=== PATIENT | male | born 1950 | race Caucasian/White ===

== ENCOUNTER 2019-09-19 08:03 | Outpatient (CLI) | payer MEDICARE, MEDICAID, SELFPAY ==
[2019-09-19 12:53] LABS: Hemoglobin A1C 7.8 % (<5.7)
[2019-09-19 12:58] LABS: Cholesterol 154 mg/dL (0-200); HDL Direct 47 mg/dL; Triglycerides 272 mg/dL (<150)
[2019-09-19 13:09] LABS: LDL Cholesterol Direct 77 mg/dL
== END 2019-09-19 08:04 | disposition home or self-care (01) ==
PROVIDERS: PCP Family Medicine; Visit Provider Internal Medicine Hematology & Oncology
DX: C82.80 Other types of follicular lymphoma, unspecified site (principal); E11.9 Type 2 diabetes mellitus without complications; I25.10 Atherosclerotic heart disease of native coronary artery without angina pectoris
CPT/HCPCS: 36415; 80061; 83036

== ENCOUNTER 2019-10-03 07:31 | Outpatient (RCR) | payer MEDICARE, MEDICAID, SELFPAY ==
[2019-09-02 11:04] VITALS: BMI 57.0
--- NOTE | 2019-09-02 11:10 | P.PNWOUND_ITS ---
Wound Care Note Date/Time: 09/02/19 11 :10 patient seen in the wound clinic with LYDIA Carpio. Bradford drain was removed at previous visit. They have been treating the wounds and the tract with silver gel and Mepilex in the tract. He is seen now in follow-up. Exam- both counter incisions are fairly large but clean and appeared to be healing. No significant drainage from the tract and no evidence of purulent fluid. Assessment and Plan Assessment and plan (1) Left buttock abscess: Code(s): L02.31 - Cutaneous abscess of buttock Status: Chronic Assessment and Plan: Abscess has resolved but now has a chronic wound that is slow to heal due to the patient's obesity and chronic illnesses as well as its location on his buttocks. He does spend most of his time sitting. I think the wound tract is clean and will heal without dressings. He can just put silver gel on both of the openings for the counter incisions and dressed that with gauze daily. He will be recheck in approximately 2 weeks. (2) Morbid obesity with BMI of 60.0-69.9, adult: Code(s): E66.01 - Morbid (severe) obesity due to excess calories; Z68.44 - Body mass index (BMI) 60.0-69.9, adult Status: Chronic (3) Antiplatelet or antithrombotic long-term use: Code(s): Z79.02 - superintendent container terminal (current) use of antithrombotics/antiplatelets Status: Chronic
--- NOTE | 2019-09-02 11:14 | WPDWOUNDNOTE ---
Wound Care Note Date/Time: 09/02/19 11:14 Wound approximation: No Wound width: Superior opening: Inferior opening: Wound length: Superior opening: Inferior opening: Wound depth: Superior openin.5 cm Inferior openin.5 cm Drainage: No purulent drainage Surrounding tissue appearance: No surrounding signs of infection. Induration resolved. Tunneling: Connection between the two openings, otherwise no tunneling. Percentage granulation tissue: 100% Treatment/Procedures: Wound assessment and dressing change. Dressings: Stop packing the wound. Change to daily application of silver get to open wounds and cover with gauze and tape. Wash wounds with soap and water daily prior to dressing changes.
--- NOTE | 2019-09-22 17:25 | WPDWOUNDNOTE ---
Wound Care Note Date/Time: 09/22/19 17:25 No new complaints or problems. Has continued to use silver gel. Assessment and Plan Assessment and plan (1) Left buttock abscess: Code(s): L02.31 - Cutaneous abscess of buttock Status: Chronic Assessment and Plan: Healing slowly. No sign of recurrent abscess. Continue silver gel dressing changes. Follow up in wound clinic in 3-4 weeks. (2) Morbid obesity with BMI of 60.0-69.9, adult: Code(s): E66.01 - Morbid (severe) obesity due to excess calories; Z68.44 - Body mass index (BMI) 60.0-69.9, adult Status: Chronic Review of Systems Review of Systems: All systems reviewed & are unremarkable except as noted in HPI and below ( HPI) Constitutional: Constitutional: Denies chills and Denies fever(s) Exam GI: Rectal Exam: other ( left buttocks wounds from previous abscess are clean and granulating. ) Other: Still a tract between the 2 openings but it is smaller.
--- NOTE | 2019-10-03 07:45 | P.PNWOUND_ITS ---
Wound Care Note Date/Time: 10/03/19 07:45 Morbidly obese man on a anti-platelet therapy developed left buttock abscess that extended towards the scrotum. . This was drained in surgery with a [place] drain as a seat on. The drain was removed after 3 weeks. Patient continues to have open wounds and wound tract. He has been using silver gel dressings. His last visit was 11 days ago. Both wounds were still present but smaller and the tract was smaller with only a narrow connection between the 2 openings. No evidence of purulence or underlying abscess. Assessment and Plan Assessment and plan (1) Left buttock abscess: Code(s): L02.31 - Cutaneous abscess of buttock Status: Chronic Assessment and Plan: Nearly healed. Continue silver gel and ABDs daily. Recheck in 3 weeks. Should be healed by then. (2) Morbid obesity with BMI of 60.0-69.9, adult: Code(s): E66.01 - Morbid (severe) obesity due to excess calories; Z68.44 - Body mass index (BMI) 60.0-69.9, adult Status: Chronic (3) Antiplatelet or antithrombotic long-term use: Code(s): Z79.02 - group home (current) use of antithrombotics/antiplatelets Status: Chronic Review of Systems Constitutional: Constitutional: Denies chills and Denies fever(s) Exam GI: Rectal Exam: buttock abscess ( tract closed, small openings remain, nearly healed.)
--- NOTE | 2019-10-24 07:17 | PCWOUND ---
Per patients , the wound to the right buttock is closed. Appointment cancelled, instructed to contact office for any questions or concerns. Will contact Dr. Carter's office with update.
--- NOTE | 2019-10-24 07:59 | PCWOUND ---
WOCN NOTE Patient called to cancel appointment for today, reports he is healed.
== END 2019-11-21 07:43 | disposition home or self-care (01) ==
LOC: ANHWOC 07:31
PROVIDERS: PCP Family Medicine; Visit Provider Surgery
DX: L98.419 Non-pressure chronic ulcer of buttock with unspecified severity (principal)
CPT/HCPCS: 99212; G0463

== ENCOUNTER 2019-12-09 19:25 | Inpatient (IN) | payer MEDICARE, MEDICAID, SELFPAY ==
--- NOTE | ~2019-12-09 | XR_ITS ---
XR chest 2V 12/09/2019 20:11 Indication: Chest pain. Low oxygen saturation. Procedure: AP and lateral views of the chest Comparison: Comparison to multiple prior studies sequentially, with oldest reviewed study dated 03/2019. Findings: Heart size normal. Port catheter tip in the SVC. There is bibasilar atelectasis. No focal p neumonia, edema, pleural effusion or pneumothorax. Impression: 1: Bibasilar atelectasis. Reviewed, dictated and finalized at location A. Impression: 1: Bibasilar atelectasis.
[2019-12-09 19:23] VITALS: BP 110/62; PULSE 117; RESP 26; TEMP 37.7; O2SAT 90
--- NOTE | 2019-12-09 19:32 | ECG_ITS ---
Measurements Intervals [place] Rate: 117 P: 37 IA: 140 QRS: -15 QRSD: 89 T: 72 QT: 311 QTc: 434 Interpretive Statements SINUS TACHYCARDIA BORDERLINE R WAVE PROGRESSION, ANTERIOR LEADS BORDERLINE ST-T WAVE ABNORMALITY- LATERAL LEADS ABNORMAL ECG Electronically Signed On 12-10-2019 7:14:08 CDT by Hema Emery D.O.
--- NOTE | 2019-12-09 19:37 | ED.CHESTPAIN ---
HPI - Chest Pain General Chief Complaint: Chest Pain Stated Complaint: cp Time Seen by Provider: 12/09/19 19:36 Source: patient and old records reviewed Mode of arrival: EMS Limitations: no limitations History of Present Illness HPI narrative: Patient is a 69-year-old male who presents to the emergency department with complaint of chest pain. Patient states he has had symptoms of intermittent chills and low-grade fever since yesterday afternoon. Patient reports having some nausea and vomiting and diarrhea last night. Patient complains of myalgias and a non-productive cough. Patient reports an episode of chest pain this evening along the left chest. Patient took sublingual nitroglycerin x1 at home and reports resolution of his chest pain. Patient has prior history of coronary disease. Patient describes the pain as aching with radiation into his arms. He is currently pain-free. MD complaint: chest pain Timing of current episode: now resolved Onset: during rest Pain location: left chest Pain radiation: right arm and left arm Quality: aching Relieving factors: nitroglycerin Exacerbating factors: nothing Context: recent illness (Patient with multiple illness symptoms) Associated symptoms: nausea, vomiting, fever and cough Treatment prior to arrival: aspirin and nitroglycerin Related Data Home Medications Medication Instructions Recorded Confirmed aspirin 81 mg PO DAILY 05/31/19 12/10/19 isosorbide mononitrate 30 mg PO DAILY 05/31/19 12/10/19 liraglutide 1.8 mg SUBCUT DAILY 05/31/19 12/10/19 metoprolol succinate 50 mg PO BID 05/31/19 12/10/19 nitroglycerin 0.4 mg SUBLINGUAL Q5MIN PRN 05/31/19 12/10/19 prasugrel 10 mg PO DAILY 05/31/19 12/10/19 insulin lispro [Humalog KwikPen 8 unit SUBCUT BID 07/07/19 12/10/19 Insulin] omega 6-kwm-bjc-fish oil [Fish Oil] 1 cap PO BID 07/07/19 12/10/19 insulin glargine 100 unit/mL (3 60 unit SUB-Q DAILY ml 10/03/19 12/10/19 mL) subcutaneous pen sitagliptin 50 mg-metformin ER 1 tablet PO BID tablet 10/03/19 12/10/19 1,000 mg tablet,extended release 24h mp baclofen 20 mg PO HS 12/10/19 12/10/19 diphenoxylate-atropine 1 tablet PO QID PRN 12/10/19 12/10/19 lidocaine-prilocaine 1 applic TOPICAL PRN PRN 12/10/19 12/10/19 losartan 50 mg PO BID 12/10/19 12/10/19 meclizine 25 mg PO TID PRN 12/10/19 12/10/19 ondansetron HCl 4 mg PO Q8H PRN 12/10/19 12/10/19 Allergies Allergy/AdvReac Type Severity Reaction Status Date / Time No Known Allergies Allergy Unverified 10/03/19 09:48 Review of Systems Review of Systems: All systems reviewed & are unremarkable except as noted in HPI and below Constitutional: Constitutional: Reports chills and Reports fever(s) Cardiovascular: Cardiovascular: Reports chest pain Respiratory: Respiratory: Reports cough and Denies dyspnea Gastrointestinal: Gastrointestinal: Reports diarrhea, Reports nausea and Reports vomiting Musculoskeletal: Musculoskeletal: Reports myalgias PMFSH Past Medical History Medical History Aortic stenosis severe Arthritis CAD (coronary artery disease) of artery bypass graft With history of stents x4. Cataract CHF (congestive heart failure) Echocardiogram in January 2019 showed moderate concentric left ventricular hypertrophy, ejection fraction of 70%, impaired diastolic relaxation grade 1. Depression Diabetes GERD (gastroesophageal reflux disease) Hypercholesterolemia Hypertension Mitral valve prolapse Morbid obesity with BMI of 60.0-69.9, adult Non-Hodgkin lymphoma He is a patient of Dr. Oliveira. Peripheral neuropathy Sleep apnea Patient does not use a CPAP at nighttime. Surgical History Surgical History H/O arthroscopic knee surgery H/O cardiac catheterization H/O inguinal hernia repair History of appendectomy Hx of tonsillectomy Family History Family History (Updated 12/10/19 @ 01:12 by Ca
[2019-12-09 19:44] LABS: Hematocrit 39.4 % (42.0-52.0); Hemoglobin 12.6 g/dL (14.0-18.0); Mean Corpuscular Hemoglobin 27.2 pg (26-34); Mean Corpuscular Volume 85.1 fl (80-100); Mean Platelet Volume 9.5 fl (7.4-10.4); Platelet Count Result 211 k/mm3 (150-375); Red Blood Count 4.63 M/mm3 (4.6-6.20); Red Cell Distribution Width 15.9 % (11.5-14.5); White Blood Count 18.6 K/mm3 (4.5-10.0)
[2019-12-09 19:54] LABS: Band Neutrophils Percent 2 % (0-6); Eosinophils Absolute Manual 0.37 K/mm3 (0.02-0.5); Eosinophils Percent Manual 2 % (0-4); Lymphocytes Absolute Manual 0.93 K/mm3 (1.1-4.5); Monocytes Absolute Manual 0.93 K/mm3 (0.1-0.90); Monocytes Percent Manual 5 % (3-9); Neutrophils Absolute Manual 16.36 K/mm3 (1.3-6.7); Neutrophils Percent Manual 86 % (46-73); Platelet Estimate Adequate (Adequate); Total Cells Counted 100
[2019-12-09 19:55] LABS: Blood Urea Nitrogen 20 mg/dL (9-20); Calcium 9.2 mg/dL (8.4-10.2); Carbon Dioxide 23 mmol/L (22-30); Chloride 100 mmol/L (98-107); Estimated CRCL calculation 73 ml/min; Estimated Glomerular Filt Rate 50; Glucose 167 mg/dL (75-110); Sodium 134 mmol/L (137-145)
[2019-12-09 19:58] LABS: INR 1.1; Prothrombin Time 13.5 Seconds (11.1-14.7)
[2019-12-09 19:59] LABS: Partial Thromboplastin Time 30.3 SECONDS (22.3-36.8)
[2019-12-09 20:10] LABS: Troponin I 0.158 ng/mL (0.000-0.034)
[2019-12-09 20:11] LABS: Lactic Acid Reflex 1.7 mmol/L (0.7-2.1)
[2019-12-09 20:15] LABS: Alanine Aminotransferase 19 U/L (4-50); Albumin Level 4.1 g/dL (3.5-5.1); Alkaline Phosphatase 59 U/L (38-126); Aspartate Amino Transferase 24 U/L (17-59); Bilirubin,Total 0.5 mg/dL (0.2-1.3); CRP 5.8 mg/dL (<1.0)
[2019-12-09] MEDS: ASPIRIN 81 MG CHEWABLE TABLET 324 MG PO (20:17)
[2019-12-09 21:35] LABS: Add Urine Microscopic? YES; Appearance Urine Clear (Clear); Bacteria Urine Trace /hpf; Bilirubin Urine Negative (Negative); Blood Urine Negative (Negative); Color Urine Yellow (Yellow); Glucose Urine UA Negative (Negative); Ketones Urine Negative (Negative); Leukocyte Esterase Ur Negative LEU/UL (Negative); Nitrate Urine Negative (Negative); Protein Urine 1+ mg/dL (Negative); RBC Urine 0-2 /hpf (0-2); Specific Grav Ur 1.015 (1.001-1.035); Squamous Epithelial Cell Urine Rare /hpf (Few); Urobilinogen Urine Negative mg/dL (<2.0); WBC Urine 0-3 /hpf
[2019-12-09 22:35] VITALS: BP 117/75; PULSE 103; RESP 14; O2SAT 94
[2019-12-09 23:50] VITALS: BP 118/84; PULSE 98; RESP 20; O2SAT 97
[2019-12-10] VITALS (18 sets, daily range): BP systolic 101–128; BP diastolic 56–112; PULSE 76–104; RESP 14–22; TEMP 36.5–37.7; O2SAT 93–95; BMI 57.7
--- NOTE | 2019-12-10 00:12 | ADMGEN ---
This patient, Pascual Kowalski, was admitted to Intensive Care Unit-7 on 12/10/2019. Patient/family oriented to hospital policies and general routines including ID bracelet, bed and alarms, visiting hours, pain management, procedures, bathroom and other care routines, personal items, smoking policy, room service/diet, and visiting hours. Valuables list has been completed. Information on how to activate the Rapid Response Team has been discussed. Patient/Family are encouraged to report perceived risks to care and to ask questions if they do not understand what they are told or what they should do.
--- NOTE | 2019-12-10 01:06 | PM.IMHP ---
H&P: HPI History of Present Illness Chief complaint: Chest pain, fever and cough Narrative: Pascual Kowalski is a 69 year old male with a past medical history type 2 diabetes, severe aortic stenosis, pulmonary hypertension, obstructive sleep apnea, and non-Hodgkin's lymphoma who presented to the ER via EMS due to chest pain. The patient reported that he was say now watching TV around 2:00 p.m. when he began having substernal chest pain that radiated down both arms. He reports that the pain was a ?small pain?. It was not as severe as when he had a prior NH. He did have associated diaphoresis but denies nausea or vomiting. He has had decreased appetite for 2 days. He has lost 10 lb this week. He has had low-grade temperatures of around 99? at home. It has been associated with a couple of days of nonproductive cough and fatigue. He denies any recent ill contacts. He does not leave the house often is does the shopping. He denies any GI symptoms. He did have 1 day of loose stools about 5 days ago but he has not had any diarrhea since then. He denies any dysuria hematuria or changes in urinary frequency or urgency. Review of Systems Review of Systems: Narrative: 12 systems were reviewed with pertinent positives and negatives per HPI. Except as documented in the HPI, all other systems were reviewed and are negative. [facility] Past Medical History Medical History (Updated 12/10/19 @ 04:01 by Ca Goodwin DO) Acute respiratory failure Hospitalization June 06 through July 20, 2019 intubated 07/07/2019 through 07/14/2019 due to sepsis with septic shock, fluid overload, cellulitis with abscess of the left buttock Aortic stenosis severe on echocardiogram July 2019 Arthritis CAD (coronary artery disease) of artery bypass graft With history of stents x4. Dr. Ribeiro Cataract CHF (congestive heart failure) Echocardiogram 07/2019: Mildly reduced left ventricular systolic function EF of 40-45%, moderately increased left ventricular wall thickness, grade 1 diastolic dysfunction, decreased right ventricular systolic function, right ventricular chamber mildly enlarged, left atrial straight per moderately enlarged, severe aortic valve stenosis with valve area of 0.62, severe aortic valve calcification, mild tricuspid regurgitation, moderate pulmonary hypertension with RVSP of 52 Depression Diabetes Follicular low grade B-cell lymphoma GERD (gastroesophageal reflux disease) Hypercholesterolemia Hypertension Mitral valve prolapse Morbid (severe) obesity due to excess calories Morbid obesity with BMI of 60.0-69.9, adult Non-Hodgkin lymphoma He is a patient of Dr. Oliveira. Peripheral neuropathy Pulmonary hypertension Moderate on echocardiogram from 2019 Restless legs syndrome Sleep apnea Patient does not use a CPAP at nighttime. Unspecified background retinopathy Surgical History Surgical History H/O arthroscopic knee surgery H/O cardiac catheterization H/O inguinal hernia repair History of appendectomy Hx of tonsillectomy Family History Family History (Updated 12/10/19 @ 03:51 by Ca Goodwin DO) Father Heart disease Diabetes mellitus Lung disease CHF (congestive heart failure) Atrial fibrillation Mother Breast cancer Dementia Son Aneurysm, aorta, abdominal, ruptured Acute myocardial infarction Other Family history of obesity Social History Social History Social History: Mr. Kowalski is and lives with his in [place], [place]. He designates his , Puja, as his surrogate decision maker and he wishes to be a full code. He denies alcohol, tobacco, and drug use. His primary care provider is Dr. Leo Doss. Smoking status: Never smoker Alcohol intake: former Substance use: never Gender identity (if verbalized by the patient): Male Spiritual care concerns:
[2019-12-10 03:52] LABS: Basophils Absolute Auto 0.1 K/mm3 (0.0-0.1); Basophils Percent Auto 0.4 % (0.2-1.2); Eosinophils Absolute Auto 0.1 K/mm3 (0-0.3); Eosinophils Percent Auto 0.6 % (0-4.4); Hematocrit 37.6 % (42.0-52.0); Hemoglobin 12.1 g/dL (14.0-18.0); Immature Granulocyte Absolute 0.08 K/mm3 (0.00-0.031); Immature Granulocyte Percent A 0.5 % (0-0.5); Lymphocytes Absolute Auto 0.72 K/mm3 (0.9-3.2); Lymphocytes Percent Auto 4.8 % (18.3-44.2); Mean Corpuscular HGB Conc 32.2 g/dl (32-36); Mean Corpuscular Hemoglobin 27.4 pg (26-34); Mean Corpuscular Volume 85.1 fl (80-100); Mean Platelet Volume 10.8 fl (7.4-10.4); Monocytes Absolute Auto 1.1 K/mm3 (0.1-0.6); Monocytes Percent Auto 6.9 % (2.6-8.5); Neutrophils Absolute Auto 13.1 K/mm3 (1.3-6.7); Neutrophils Percent Auto 86.8 % (45.5-73.1); Platelet Count Result 220 k/mm3 (150-375); Red Blood Count 4.42 M/mm3 (4.6-6.20); Red Cell Distribution Width 16.1 % (11.5-14.5); White Blood Count 15.1 K/mm3 (4.5-10.0)
[2019-12-10 03:57] LABS: Blood Urea Nitrogen 21 mg/dL (9-20); Calcium 8.9 mg/dL (8.4-10.2); Carbon Dioxide 27 mmol/L (22-30); Chloride 99 mmol/L (98-107); Estimated CRCL calculation 76 ml/min; Estimated Glomerular Filt Rate 55; Glucose 178 mg/dL (75-110); Sodium 134 mmol/L (137-145)
[2019-12-10 04:02] LABS: INR 1.1; Prothrombin Time 14.2 Seconds (11.1-14.7)
[2019-12-10 04:03] LABS: Partial Thromboplastin Time 32.4 SECONDS (22.3-36.8)
[2019-12-10] MEDS: HEPARIN SOD/D5W 100 UNITS/ML 25,000 UNITS/250 ML BAG 10 UNITS IV CONT (04:24)
[2019-12-10] MEDS: INSULIN ASPART (*BKC) 100 UNITS/ML 8 UNITS SUB-Q ×2 (08:45→17:01)
[2019-12-10] MEDS: LOSARTAN POTASSIUM 50 MG TABLET PO ×2 (08:51→17:00)
[2019-12-10] MEDS: ASPIRIN 81 MG ENTERIC TABLET PO (08:51)
[2019-12-10] MEDS: PRASUGREL HCL 10 MG TABLET PO (08:51)
[2019-12-10] MEDS: FUROSEMIDE 40 MG TABLET PO (08:51)
[2019-12-10] MEDS: METOPROLOL SUCCINATE EXT REL 50 MG TABCR PO ×2 (08:51→17:01)
[2019-12-10] MEDS: GABAPENTIN 400 MG CAPSULE 1200 MG PO ×2 (08:52→21:25)
[2019-12-10] MEDS: POTASSIUM CHLORIDE 20 MEQ TABLET.ER PO (08:52)
[2019-12-10] MEDS: OMEGA 3 POLYUNSAT FATTY ACIDS 1 GM CAP PO ×2 (08:52→17:00)
[2019-12-10] MEDS: metFORMIN HCL XR 500 MG TAB.SR.24H 1000 MG PO ×2 (08:52→17:00)
[2019-12-10] MEDS: DULOXETINE 60 MG CAPSULE.DR PO (08:52)
[2019-12-10] MEDS: ISOSORBIDE MONONITRATE 30 MG TAB.ER.24H PO (08:52)
[2019-12-10 11:54] LABS: Partial Thromboplastin Time 34.7 SECONDS (22.3-36.8)
[2019-12-10] MEDS: HEPARIN SODIUM 5,000 UNITS/ML VIAL 4000 UNITS IV PUSH ×2 (12:06→18:13)
--- NOTE | 2019-12-10 13:12 | PM.CNCAR ---
Assessment and Plan Assessment and plan (1) Non-ST elevation HI (NSTEMI): Code(s): I21.4 - Non-ST elevation (NSTEMI) myocardial infarction Status: Acute Assessment and Plan: Significant troponin elevation without clearly identified alternative explanation suggestive of non ST-elevation myocardial infarction. Patient described chest pain as mild, self-limited resolved with some nitroglycerin without recurrence. Patient presenting symptoms suspicious for COVID-19 infection. Test pending, remains on isolation. This will impact our management decisions. Agree with heparin infusion times 48 hours. Continue aspirin, statin, nitrates, losartan, Toprol XL, and prasugrel. As patient is asymptomatic and on isolation for suspected COVID-19 infection, conservative medical management reasonable at this time. Further recommendations based on patient's clinical course, symptoms and response to therapy. Await return of COVID-19 studies. Repeat echocardiogram unlikely to change or add to her management at this time. Repeat troponin I in a.m. and 12 lead EKG. Further recommendations to follow as above. discuss this option in detail with the patient. All questions answered to his satisfaction. Patient comfortable with the plan of care. He states he discussed with Dr. Ribeiro at his last visit further evaluation and it was recommended to continue with medical therapy without change. Discussion to be held with Dr. Ribeiro his recommendation for repeat coronary angiography depending on patient's clinical course particularly as he has now returned with another episode of troponin elevation associated with chest pain albeit previously was critically ill and septic shock with multiple organ system failure. (2) Suspected COVID-19 virus infection: Code(s): R68.89 - Other general symptoms and signs Status: Acute Assessment and Plan: results pending. Remains on isolation. (3) CAD (coronary artery disease): Code(s): I25.10 - Atherosclerotic heart disease of [place] coronary artery without angina pectoris Status: Acute Assessment and Plan: history remote stenting to LAD and RCA 2009, coronary angiography January 2018 high-grade stenosis very terminal portion apical LAD no other significant lesions patent stents medical records. (4) Aortic stenosis: Code(s): I35.0 - Nonrheumatic aortic (valve) stenosis Status: Acute Assessment and Plan: Per Dr. Ribeiro's prior assessment not significant. Patient not exhibiting symptoms suggestive of clinically severe aortic stenosis. No further workup at this time. (5) Type 2 diabetes mellitus with hyperglycemia: Qualifiers: Diabetes mellitus chcf insulin use: with intermediate project manager use Qualified Code(s): E11.65 - Type 2 diabetes mellitus with hyperglycemia; Z79.4 - halfway (current) use of insulin Code(s): E11.65 - Type 2 diabetes mellitus with hyperglycemia Status: Acute Assessment and Plan: Per primary service. (6) Morbid obesity with BMI of 60.0-69.9, adult: Code(s): E66.01 - Morbid (severe) obesity due to excess calories; Z68.44 - Body mass index (BMI) 60.0-69.9, adult Status: Chronic Assessment and Plan: Lifestyle modification counseling (7) Mixed hyperlipidemia: Code(s): E78.2 - Mixed hyperlipidemia Status: Acute Assessment and Plan: continue statin therapy. Goal LDL less than 70. (8) Cardiomyopathy: Code(s): I42.9 - Cardiomyopathy, unspecified Status: Acute Assessment and Plan: EF 40-45% by echocardiogram last hospitalization. Patient compensated from CHF perspective. Continue to monitor volume status. History of Present Illness History of Present Illness Consult date/time: Date of service:12/10/19 13:12 This is a cardiology consultation at the request of Dr. Goodwin for my opinion regarding elevated troponin and chest pain. Re
[2019-12-10 17:07] LABS: Glucose Point of Care 182 (65-105)
[2019-12-10 17:07] LABS: Glucose Point of Care 170 (65-105)
[2019-12-10 17:07] LABS: Glucose Point of Care 198 (65-105)
[2019-12-10] MEDS: INSULIN GLARGINE (*BKC) 100 UNITS/ML 60 UNITS SUB-Q (17:45)
--- NOTE | 2019-12-10 18:03 | PM.IMPN ---
Progress Note: A&P Assessment and Plan (1) Suspected COVID-19 virus infection: Code(s): R68.89 - Other general symptoms and signs Status: Acute Assessment and Plan: COVID-19 testing pending Verses commute choir pneumonia. Will check urine pneumococcal antigen and Legionella antigen. Patient was given 1 dose of Rocephin and azithromycin for empiric coverage. Will continue antibiotic therapy if COVID-19 testing is negative. 12/10/19 18:03 patient is 69-year-old male with history of hypertension coronary artery disease morbid obesity with a BMI 57 patient presented emergency department with a complaint of chest pain radiating to bilateral upper extremity patient took sublingual nitro which did relieve his symptoms, upon arrival to emergency department patient chest pain had improved however patient tropes are quite elevated and his last tropes was 4.35 most likely patient has a non STEMI, patient was started on heparin drip patient is seen by highway commissioner, patient also had a complaint of fever, cough and shortness of breath patient is under investigation for COVID-19, patient is seen by highway commissioner recommending to to continue heparin and manage conservatively once patient is COVID symptoms have resolved further workup will be recommended, patient also complains of loose BM which is also presentation COVID-19, patient clinically stable patient is seen back not examined. (2) Elevated troponin level: Code(s): R79.89 - Other specified abnormal findings of blood chemistry Status: Acute Assessment and Plan: Probable non STEMI Cardiology consulted Will start heparin drip. (3) Type 2 diabetes mellitus with hyperglycemia: Qualifiers: Diabetes mellitus care home insulin use: with intermodal dispatcher use Qualified Code(s): E11.65 - Type 2 diabetes mellitus with hyperglycemia; Z79.4 - FPC (current) use of insulin Code(s): E11.65 - Type 2 diabetes mellitus with hyperglycemia Status: Acute Assessment and Plan: Resume home long-acting insulin, meals time bolus insulin and will add moderate sliding scale insulin with Accu-Cheks a.c. HS Subjective Date/time seen: 12/10/19 18:03 patient is 69-year-old male with history of hypertension coronary artery disease morbid obesity with a BMI 57 patient presented emergency department with a complaint of chest pain radiating to bilateral upper extremity patient took sublingual nitro which did relieve his symptoms, upon arrival to emergency department patient chest pain had improved however patient tropes are quite elevated and his last tropes was 4.35 most likely patient has a non STEMI, patient was started on heparin drip patient is seen by highway commissioner, patient also had a complaint of fever, cough and shortness of breath patient is under investigation for COVID-19, patient is seen by highway commissioner recommending to to continue heparin and manage conservatively once patient is COVID symptoms have resolved further workup will be recommended, patient also complains of loose BM which is also presentation COVID-19, patient clinically stable patient is seen back not examined. Review of Systems Review of Systems: ROS unobtainable: Yes unobtainable due to medical condition Exam Narrative: Exam Narrative: Patient is comfortable morbidly obese a BMI of 57, his temperature is 97.7?, pulse is 84 respiratory is 18 pulse ox 95% on room air his blood pressure is 101/59 Const: General: comfortable and no acute distress HENMT: General nose exam: Normal nares present Neck: Other: No retraction Resp: Effort & Inspection: normal respiratory effort GI: Other: Obese heart distended Skin: General skin exam: normal color Extrem: General: normal to inspection Psych: Affect: Anxious affect present Objective Data Vital Signs Vital Signs: Vital Signs - 24 hr 12/09/19 19:23 12/09/19 22:35 12/09/19 23:50 Temperature 99.9 F H Pulse Rate 117
[2019-12-10 18:07] LABS: Partial Thromboplastin Time 47.3 SECONDS (22.3-36.8)
[2019-12-10 19:30] LABS: SARS-CoV-2 RNA PCR Negative
--- NOTE | 2019-12-10 20:30 | PC.NURSE ---
This patient, Pascual Kowalski, was transferred to [facility] on 12/10/19 at 2030. Personal belongings sent with patient. Belongings list checked. Report given to Haley LAU. Appropriate documentation sent with patient.
[2019-12-10 20:53] LABS: Glucose Point of Care 177 (65-105)
[2019-12-10] MEDS: BACLOFEN 10 MG TABLET 20 MG PO (21:24)
[2019-12-10] MEDS: SIMVASTATIN 20 MG TABLET PO (21:25)
[2019-12-10] MEDS: PRAMIPEXOLE 1 MG TABLET PO (21:25)
[2019-12-10] MEDS: TRAZODONE HCL 50 MG TABLET 100 MG PO (21:25)
[2019-12-10] MEDS: HEPARIN SOD/D5W 100 UNITS/ML 25,000 UNITS/250 ML BAG 18 UNITS IV CONT (21:40)
[2019-12-11] VITALS (15 sets, daily range): BP systolic 92–123; BP diastolic 41–79; PULSE 66–89; RESP 18–24; TEMP 35.7–36.6; O2SAT 91–96
[2019-12-11 00:24] LABS: Partial Thromboplastin Time 75.7 SECONDS (22.3-36.8)
[2019-12-11 06:49] LABS: Basophils Absolute Auto 0.1 K/mm3 (0.0-0.1); Basophils Percent Auto 0.5 % (0.2-1.2); Eosinophils Absolute Auto 0.3 K/mm3 (0-0.3); Hematocrit 38.8 % (42.0-52.0); Hemoglobin 12.3 g/dL (14.0-18.0); Lymphocytes Absolute Auto 1.06 K/mm3 (0.9-3.2); Lymphocytes Percent Auto 10.4 % (18.3-44.2); Mean Corpuscular HGB Conc 31.7 g/dl (32-36); Mean Corpuscular Volume 85.1 fl (80-100); Mean Platelet Volume 9.7 fl (7.4-10.4); Monocytes Percent Auto 9.6 % (2.6-8.5); Neutrophils Absolute Auto 7.7 K/mm3 (1.3-6.7); Neutrophils Percent Auto 75.5 % (45.5-73.1); Platelet Count Result 238 k/mm3 (150-375); Red Blood Count 4.56 M/mm3 (4.6-6.20); Red Cell Distribution Width 16.4 % (11.5-14.5); White Blood Count 10.2 K/mm3 (4.5-10.0)
[2019-12-11 06:54] LABS: Partial Thromboplastin Time 84.1 SECONDS (22.3-36.8)
[2019-12-11 06:58] LABS: Alanine Aminotransferase 16 U/L (4-50); Albumin Level 3.8 g/dL (3.5-5.1); Alkaline Phosphatase 55 U/L (38-126); Aspartate Amino Transferase 27 U/L (17-59); Bilirubin,Total 0.3 mg/dL (0.2-1.3); Blood Urea Nitrogen 26 mg/dL (9-20); CRP 8.1 mg/dL (<1.0); Calcium 8.9 mg/dL (8.4-10.2); Carbon Dioxide 26 mmol/L (22-30); Chloride 99 mmol/L (98-107); Estimated CRCL calculation 53 ml/min; Estimated Glomerular Filt Rate 35; Glucose 165 mg/dL (75-110); Potassium 3.6 mmol/L (3.4-5.0); Sodium 133 mmol/L (137-145)
--- NOTE | 2019-12-11 07:48 | ECG_ITS ---
Measurements Intervals [place] Rate: 81 P: 58 NH: 192 QRS: 22 QRSD: 100 T: 82 QT: 381 QTc: 445 Interpretive Statements SINUS RHYTHM NONSPECIFIC ST & T-WAVE ABNORMALITY- LATERAL LEADS BASELINE ARTIFACT- II, III, AVF BORDERLINE ECG Electronically Signed On 12-11-2019 13:13:54 CDT by Hema Emery D.O.
[2019-12-11 08:21] LABS: Glucose Point of Care 188 (65-105)
[2019-12-11] MEDS: DULOXETINE 60 MG CAPSULE.DR PO (08:45)
[2019-12-11] MEDS: ASPIRIN 81 MG ENTERIC TABLET PO (08:45)
[2019-12-11] MEDS: FUROSEMIDE 40 MG TABLET PO (08:45)
[2019-12-11] MEDS: metFORMIN HCL XR 500 MG TAB.SR.24H 1000 MG PO ×2 (08:45→16:59)
[2019-12-11] MEDS: PRASUGREL HCL 10 MG TABLET PO (08:46)
[2019-12-11] MEDS: OMEGA 3 POLYUNSAT FATTY ACIDS 1 GM CAP PO ×2 (08:46→16:59)
[2019-12-11] MEDS: POTASSIUM CHLORIDE 20 MEQ TABLET.ER PO (08:46)
[2019-12-11] MEDS: GABAPENTIN 400 MG CAPSULE 1200 MG PO ×2 (08:46→20:40)
[2019-12-11] MEDS: LOSARTAN POTASSIUM 50 MG TABLET PO (08:46)
[2019-12-11] MEDS: ISOSORBIDE MONONITRATE 30 MG TAB.ER.24H PO (08:46)
[2019-12-11] MEDS: METOPROLOL SUCCINATE EXT REL 50 MG TABCR PO (08:46)
[2019-12-11] MEDS: INSULIN ASPART (*BKC) 100 UNITS/ML 8 UNITS SUB-Q ×2 (08:48→16:42)
--- NOTE | 2019-12-11 11:32 | PM.PNCARD ---
Progress Note: A&P Assessment and Plan (1) Non-ST elevation [place] (NSTEMI): Code(s): I21.4 - Non-ST elevation (NSTEMI) myocardial infarction Status: Acute Assessment and Plan: Significant troponin elevation without clearly identified alternative explanation suggestive of non ST-elevation myocardial infarction. Patient described chest pain as mild, self-limited resolved with some nitroglycerin without recurrence. Patient presenting symptoms suspicious for COVID-19 infection, COVID-19 testing returned negative. - Continue heparin infusion for 48 hours. Continue aspirin, statin, nitrates, losartan, Toprol XL, and prasugrel. - Repeat echocardiogram unlikely to change or add to her management at this time. Repeat troponin I this AM with significant downward trend. - Patient has clearly and unequivocally stated he is not interested in proceeding with ischemic evaluation at this time particularly coronary angiography. I have advised given circumstances coronary angiography is my recommendation as he has now presented for a 2nd time with a significant troponin elevation. Patient's primary concern with regards to upcoming scan for his cancer and wishes to understand his status in this regard prior to agree to further workup otherwise. He understands the risk for myocardial infarction associated complications including but as he feels very well now he does not agree to further evaluation at this time. - Continue aggressive medical therapy. Further recommendations to follow based on patient's clinical course obviously provided patient remains completely asymptomatic. (2) Suspected COVID-19 virus infection: Code(s): R68.89 - Other general symptoms and signs Status: Acute Assessment and Plan: NEGATIVE. However, I remain concerned for COVID-19 clinically based upon his suspicious symptoms at presentation. (3) CAD (coronary artery disease): Code(s): I25.10 - Atherosclerotic heart disease of [place] coronary artery without angina pectoris Status: Acute Assessment and Plan: history remote stenting to LAD and RCA 2009, coronary angiography January 2018 high-grade stenosis very terminal portion apical LAD no other significant lesions patent stents medical records. (4) Aortic stenosis: Code(s): I35.0 - Nonrheumatic aortic (valve) stenosis Status: Acute Assessment and Plan: Per Dr. Ribeiro's prior assessment not significant. Patient not exhibiting symptoms suggestive of clinically severe aortic stenosis. No further workup at this time. (5) Type 2 diabetes mellitus with hyperglycemia: Qualifiers: Diabetes mellitus mcc insulin use: with long wall mining machine helper use Qualified Code(s): E11.65 - Type 2 diabetes mellitus with hyperglycemia; Z79.4 - gig tender (current) use of insulin Code(s): E11.65 - Type 2 diabetes mellitus with hyperglycemia Status: Acute Assessment and Plan: Per primary service. (6) Morbid obesity with BMI of 60.0-69.9, adult: Code(s): E66.01 - Morbid (severe) obesity due to excess calories; Z68.44 - Body mass index (BMI) 60.0-69.9, adult Status: Chronic Assessment and Plan: Lifestyle modification counseling (7) Mixed hyperlipidemia: Code(s): E78.2 - Mixed hyperlipidemia Status: Acute Assessment and Plan: continue statin therapy. Goal LDL less than 70. (8) Cardiomyopathy: Code(s): I42.9 - Cardiomyopathy, unspecified Status: Acute Assessment and Plan: EF 40-45% by echocardiogram last hospitalization. Patient compensated from CHF perspective. Continue to monitor volume status. Subjective Date/time seen: Date of service: 12/11/19 11:32 Follow-up for elevated troponin, chest pain COVID-19 negative. Patient transferred out of isolation. Patient denies any recurrent chest pain, shortness of breath, fevers, chills, cough or myalgias. Patient states he feels rigo
[2019-12-11 11:53] LABS: Glucose Point of Care 169 (65-105)
--- NOTE | 2019-12-11 13:00 | PM.IMPN ---
Progress Note: A&P Assessment and Plan (1) Suspected COVID-19 virus infection: Code(s): R68.89 - Other general symptoms and signs Status: Acute Assessment and Plan: COVID-19 testing pending Verses commute choir pneumonia. Will check urine pneumococcal antigen and Legionella antigen. Patient was given 1 dose of Rocephin and azithromycin for empiric coverage. Will continue antibiotic therapy if COVID-19 testing is negative. 12/11/19 13:00 patient is 69-year-old male with history of hypertension coronary artery disease morbid obesity with a BMI 57 patient presented emergency department with a complaint of chest pain radiating to bilateral upper extremity patient took sublingual nitro which did relieve his symptoms, upon arrival to emergency department patient chest pain had improved however patient tropes are quite elevated and his last tropes was 4.35 most likely patient has a non STEMI, patient was started on heparin drip for 48hrs, patient was seen by substance abuse therapist, patient also had a complaint of fever, cough and shortness of breath patient, was under investigation for COVID-19, which is negative, patient is seen by substance abuse therapist today recommending cardiac catheterization to further evaluate however patient is refusing any further workup pending his cancer evaluation before proceeding ischemic evaluation, patient had a long discussion with substance abuse therapist patient understands the risk of not having further evaluation with catheterization can result in further myocardial necrosis as well as patient has verbalized understanding. Will continue to monitor the patient overnight may discharge tomorrow (2) Elevated troponin level: Code(s): R79.89 - Other specified abnormal findings of blood chemistry Status: Acute Assessment and Plan: Probable non STEMI Cardiology consulted Will start heparin drip. Plan is above (3) Type 2 diabetes mellitus with hyperglycemia: Qualifiers: Diabetes mellitus machine long goods helper insulin use: with mcc use Qualified Code(s): E11.65 - Type 2 diabetes mellitus with hyperglycemia; Z79.4 - local intermodal truck driver (current) use of insulin Code(s): E11.65 - Type 2 diabetes mellitus with hyperglycemia Status: Acute Assessment and Plan: Resume home long-acting insulin, meals time bolus insulin and will add moderate sliding scale insulin with Accu-Cheks a.c. HS Subjective Date/time seen: 12/11/19 13:00 patient is 69-year-old male with history of hypertension coronary artery disease morbid obesity with a BMI 57 patient presented emergency department with a complaint of chest pain radiating to bilateral upper extremity patient took sublingual nitro which did relieve his symptoms, upon arrival to emergency department patient chest pain had improved however patient tropes are quite elevated and his last tropes was 4.35 most likely patient has a non STEMI, patient was started on heparin drip for 48hrs, patient was seen by substance abuse therapist, patient also had a complaint of fever, cough and shortness of breath patient, was under investigation for COVID-19, which is negative, patient is seen by substance abuse therapist today recommending cardiac catheterization to further evaluate however patient is refusing any further workup pending his cancer evaluation before proceeding ischemic evaluation, patient had a long discussion with substance abuse therapist patient understands the risk of not having further evaluation with catheterization can result in further myocardial necrosis as well as patient has verbalized understanding. Will continue to monitor the patient overnight may discharge tomorrow Review of Systems Review of Systems: All systems reviewed & are unremarkable except as noted in HPI and below Exam Narrative: Exam Narrative: Patient is comfortable morbidly Const: General: comfortable and no acute distress HENMT: General nose exam: Normal nares present Mouth: Yes moist mucous memb
[2019-12-11] MEDS: HEPARIN SOD/D5W 100 UNITS/ML 25,000 UNITS/250 ML BAG 18 UNITS IV CONT (13:19)
--- NOTE | 2019-12-11 13:21 | PC.NURSE ---
This patient, Pascual Kowalski, was transferred to [facility] on 12/11/19 at 1321. Personal belongings sent with patient. Belongings list checked and signed with receiving RN. Report given to SID Silvestre. Appropriate documentation sent with patient.
--- NOTE | 2019-12-11 13:24 | PC.NURSE ---
This patient, Pascual Kowalski, was received from [facility] on 12/11/19 at 1325. Personal belongings list checked and signed. Patient/family oriented to unit policies and routines
[2019-12-11 14:09] LABS: Hemoglobin A1C 7.3 % (<5.7)
[2019-12-11 16:26] LABS: Glucose Point of Care 160 (65-105)
[2019-12-11] MEDS: INSULIN GLARGINE (*BKC) 100 UNITS/ML 60 UNITS SUB-Q (17:56)
[2019-12-11 18:30] LABS: Glucose Point of Care 190 (65-105)
[2019-12-11] MEDS: TRAZODONE HCL 50 MG TABLET 100 MG PO (20:40)
[2019-12-11] MEDS: SIMVASTATIN 20 MG TABLET PO (20:40)
[2019-12-11] MEDS: BACLOFEN 10 MG TABLET 20 MG PO (20:40)
[2019-12-11] MEDS: PRAMIPEXOLE 1 MG TABLET PO (20:40)
[2019-12-11 22:22] LABS: Glucose Point of Care 161 (65-105)
[2019-12-12] VITALS (13 sets, daily range): BP systolic 95–150; BP diastolic 46–73; PULSE 70–87; RESP 16–18; TEMP 36.1–36.6; O2SAT 94–96
[2019-12-12] MEDS: HEPARIN SOD/D5W 100 UNITS/ML 25,000 UNITS/250 ML BAG 18 UNITS IV CONT (05:17)
[2019-12-12 05:42] LABS: Basophils Absolute Auto 0.1 K/mm3 (0.0-0.1); Basophils Percent Auto 0.4 % (0.2-1.2); Eosinophils Absolute Auto 0.4 K/mm3 (0-0.3); Eosinophils Percent Auto 3.4 % (0-4.4); Hematocrit 35.7 % (42.0-52.0); Hemoglobin 11.5 g/dL (14.0-18.0); Immature Granulocyte Absolute 0.09 K/mm3 (0.00-0.031); Immature Granulocyte Percent A 0.7 % (0-0.5); Lymphocytes Absolute Auto 1.09 K/mm3 (0.9-3.2); Mean Corpuscular HGB Conc 32.2 g/dl (32-36); Mean Corpuscular Hemoglobin 27.5 pg (26-34); Mean Corpuscular Volume 85.4 fl (80-100); Mean Platelet Volume 10.1 fl (7.4-10.4); Monocytes Absolute Auto 0.9 K/mm3 (0.1-0.6); Monocytes Percent Auto 7.2 % (2.6-8.5); Neutrophils Absolute Auto 9.6 K/mm3 (1.3-6.7); Neutrophils Percent Auto 79.3 % (45.5-73.1); Platelet Count Result 257 k/mm3 (150-375); Red Blood Count 4.18 M/mm3 (4.6-6.20); Red Cell Distribution Width 16.3 % (11.5-14.5); White Blood Count 12.2 K/mm3 (4.5-10.0)
[2019-12-12 05:53] LABS: Partial Thromboplastin Time 33.6 SECONDS (22.3-36.8)
[2019-12-12 06:01] LABS: Alanine Aminotransferase 20 U/L (4-50); Albumin Level 3.7 g/dL (3.5-5.1); Alkaline Phosphatase 56 U/L (38-126); Aspartate Amino Transferase 29 U/L (17-59); Bilirubin,Total 0.2 mg/dL (0.2-1.3); Blood Urea Nitrogen 40 mg/dL (9-20); CRP 4.4 mg/dL (<1.0); Calcium 8.8 mg/dL (8.4-10.2); Carbon Dioxide 24 mmol/L (22-30); Chloride 96 mmol/L (98-107); Estimated CRCL calculation 36 ml/min; Estimated Glomerular Filt Rate 23; Glucose 136 mg/dL (75-110); Potassium 3.5 mmol/L (3.4-5.0); Sodium 132 mmol/L (137-145)
[2019-12-12] MEDS: HEPARIN SODIUM 5,000 UNITS/ML VIAL 4000 UNITS IV PUSH (06:30)
[2019-12-12 07:53] LABS: Glucose Point of Care 136 (65-105)
[2019-12-12] MEDS: metFORMIN HCL XR 500 MG TAB.SR.24H 1000 MG PO ×2 (08:56→17:30)
[2019-12-12] MEDS: ASPIRIN 81 MG ENTERIC TABLET PO (08:58)
[2019-12-12] MEDS: GABAPENTIN 400 MG CAPSULE 1200 MG PO ×2 (08:58→20:59)
[2019-12-12] MEDS: OMEGA 3 POLYUNSAT FATTY ACIDS 1 GM CAP PO ×2 (08:58→17:29)
[2019-12-12] MEDS: DULOXETINE 60 MG CAPSULE.DR PO (09:05)
[2019-12-12] MEDS: PRASUGREL HCL 10 MG TABLET PO (09:06)
[2019-12-12] MEDS: ISOSORBIDE MONONITRATE 30 MG TAB.ER.24H PO (09:08)
[2019-12-12] MEDS: INSULIN ASPART (*BKC) 100 UNITS/ML 8 UNITS SUB-Q ×2 (09:11→17:23)
[2019-12-12] MEDS: POTASSIUM CHLORIDE 20 MEQ TABLET.ER PO (09:19)
[2019-12-12] MEDS: METOPROLOL SUCCINATE EXT REL 50 MG TABCR PO ×2 (10:36→17:29)
[2019-12-12 11:36] LABS: Glucose Point of Care 144 (65-105)
--- NOTE | 2019-12-12 13:09 | ECHO_ITS ---
Patient Info Name: Pascual Kowalski Age: 69 years : 1950 Gender: Male Ht: 68 in Wt: 363 lbs BSA: 2.91 m2 HR: 80 bpm BP: 104 / 51 mmHg Heart Rhythm: Sinus Rhythm Technical Quality: Good Exam Date: 12/12/2019 2:27 PM Exam Location: [facility] Patient Status: Inpatient Admit Date: 12/10/2019 Staff Ordering Physician: Jacob Sin MD Commercial Designer: Neal Isbell RDCS Attending Provider: Ca Goodwin DO Referring Physician: Merrick DILLON; Exam Type: CA echo dop color flow w con Study Info Indications R07.9 - Chest pain, unspecified Complete two-dimensional, color flow and Doppler transthoracic echocardiogram is performed with contrast to opacify the left ventrical and to improve the deliniation of the left ventrical endocarial boarders. Contrast/Agitated Saline Contrast/Ag. Saline: Definity Amount: 2.00 ml Administered By: Renan Fagan RN History/Risk Factors Chest pain; elevated trops - NSTEMI, CAD s/p CABG, CHF, HTN. Summary 1. Technically difficult study with limited views. Regional wall motion assessment limited despite administration of Definity echo contrast enhancement. 2. Left ventricular systolic function is lower limits of normal, estimated at 50-55%. 3. The left ventricular diastolic function is grade I diastolic dysfunction. 4. Left atrial chamber dimension is moderately enlarged. 5. There is moderate to severe aortic valve stenosis with a peak velocity of 429.62 cm/s, mean gradient of 40 mmHg, and aortic valve area of 1.10 cm2. 6. Moderate pulmonary hypertension, estimated pulmonary arterial systolic pressure is 47 mmHg. 7. There is mild tricuspid valve regurgitation. Left Ventricle Left ventricular chamber dimension is normal. Left ventricular systolic function is lower limits of normal, estimated at 50-55%. There is mildly increased left ventricular wall thickness. The left ventricular diastolic function is grade I diastolic dysfunction. Technically difficult study with limited views. Regional wall motion assessment limited despite administration of Definity echo contrast enhancement. Right Ventricle Right ventricular chamber dimension is not well visualized. Left Atria Left atrial chamber dimension is moderately enlarged. Right Atria Right atrial chamber dimension is not well visualized. Aortic Valve The aortic valve is not well visualized. There is moderate to severe aortic valve stenosis with a peak velocity of 429.62 cm/s, mean gradient of 40 mmHg, and aortic valve area of 1.10 cm2. There is trace aortic valve regurgitation. There is moderate aortic valve calcification. Pulmonic Valve The pulmonic valve is not well visualized. There is trace pulmonic regurgitation. Mitral Valve The mitral valve has not well visualized. There is mild mitral valve regurgitation. The mitral valve annulus is mildly calcified. Tricuspid Valve The tricuspid valve leaflets are not well visualized. There is mild tricuspid valve regurgitation. Moderate pulmonary hypertension, estimated pulmonary arterial systolic pressure is 47 mmHg. Pericardium/Pleural The pericardium appears not well visualized. Inferior Vena Cava Normal inferior vena cava with <50% collapse upon inspiration consistent with normal right atrial pressure, 5 mmHg. Aorta The aortic root size at the sinus of Valsalva is mildly dilated. Left Ventricular Outflow Tract
[2019-12-12] MEDS: PERFLUTREN LIPID MICROSPHERES 1.5 ML VIAL DILUTED TO 10 ML TOTAL VOLUME IV PUSH (15:11)
--- NOTE | 2019-12-12 15:31 | PM.PNCARD ---
Progress Note: A&P Assessment and Plan (1) Non-ST elevation [place] (NSTEMI): Code(s): I21.4 - Non-ST elevation (NSTEMI) myocardial infarction Status: Acute Assessment and Plan: Significant troponin elevation without clearly identified alternative explanation suggestive of non ST-elevation myocardial infarction. Patient described chest pain as mild, self-limited resolved with some nitroglycerin without recurrence. Patient presenting symptoms suspicious for COVID-19 infection, COVID-19 testing returned negative. -Heparin gtt discontinued. Continue aspirin, statin, nitrates, losartan, Toprol XL, and prasugrel. - 2D echo to ensure LV function is intact particular given relative hypotension and acute renal failure. - Patient has stated he is not interested in proceeding with ischemic evaluation at this time particularly coronary angiography. Although ideally I had advised coronary angiography, inlight of Acute on chronic renal failure will pursue conservative management. - Continue aggressive medical therapy. Further recommendations to follow based on patient's clinical course obviously provided patient remains completely asymptomatic. (2) CAD (coronary artery disease): Code(s): I25.10 - Atherosclerotic heart disease of [place] coronary artery without angina pectoris Status: Acute Assessment and Plan: history remote stenting to LAD and RCA 2009, coronary angiography January 2018 high-grade stenosis very terminal portion apical LAD no other significant lesions patent stents medical records. (3) Acute on chronic renal failure: Code(s): N17.9 - Acute kidney failure, unspecified; N18.9 - Chronic kidney disease, unspecified Status: Acute Assessment and Plan: Creatinine increased to 2.8 today, possibly exacerbated by relative hypotension. Avoid nephrotoxic agents. Workup per primary service. hold losartan. (4) Cardiomyopathy: Code(s): I42.9 - Cardiomyopathy, unspecified Status: Acute Assessment and Plan: EF 40-45% by echocardiogram last hospitalization. Patient compensated from CHF perspective. Continue to monitor volume status. repeat 2D echocardiogram. Recommendations to follow after review. (5) Suspected COVID-19 virus infection: Code(s): R68.89 - Other general symptoms and signs Status: Acute Assessment and Plan: NEGATIVE. However, I remain concerned for COVID-19 clinically based upon his suspicious symptoms at presentation. (6) Aortic stenosis: Code(s): I35.0 - Nonrheumatic aortic (valve) stenosis Status: Acute Assessment and Plan: Per Dr. Ribeiro's prior assessment not significant. Patient not exhibiting symptoms suggestive of clinically severe aortic stenosis. No further workup at this time. 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 (8) Morbid obesity with BMI of 60.0-69.9, adult: Code(s): E66.01 - Morbid (severe) obesity due to excess calories; Z68.44 - Body mass index (BMI) 60.0-69.9, adult Status: Chronic Assessment and Plan: Lifestyle modification counseling (9) Mixed hyperlipidemia: Code(s): E78.2 - Mixed hyperlipidemia Status: Acute Assessment and Plan: continue statin therapy. Goal LDL less than 70. Subjective Date/time seen: Date of Service: 12/12/19 15:31 Follow up for NSTEMI Patient states he continues to feel well. Denies chest pain, cough, shortness of breath, weakness or dizziness. No new issues overnight. Review of Systems Review of Systems: All systems reviewed & are unremarkable except as n
[2019-12-12 16:30] LABS: Glucose Point of Care 161 (65-105)
[2019-12-12] MEDS: LOSARTAN POTASSIUM 50 MG TABLET PO (17:28)
[2019-12-12] MEDS: INSULIN GLARGINE (*BKC) 100 UNITS/ML 60 UNITS SUB-Q (17:38)
--- NOTE | 2019-12-12 17:48 | PM.IMPN ---
Progress Note: A&P Assessment and Plan (1) Suspected COVID-19 virus infection: Code(s): R68.89 - Other general symptoms and signs Status: Acute Assessment and Plan: COVID-19 testing pending [facility] commute choir pneumonia. Will check urine pneumococcal antigen and Legionella antigen. Patient was given 1 dose of Rocephin and azithromycin for empiric coverage. Will continue antibiotic therapy if COVID-19 testing is negative. 12/12/19 17:48 patient is 69-year-old male with history of hypertension coronary artery disease morbid obesity with a BMI 57 patient presented emergency department with a complaint of chest pain radiating to bilateral upper extremity patient took sublingual nitro which did relieve his symptoms, upon arrival to emergency department patient chest pain had improved however patient tropes are quite elevated and his last tropes was 4.35 most likely patient has a non STEMI, patient was started on heparin drip for 48hrs, patient was seen by gasket maker, patient also had a complaint of fever, cough and shortness of breath patient, was under investigation for COVID-19, which is negative, patient is seen by gasket maker today recommending cardiac catheterization to further evaluate however patient is refusing any further workup pending his cancer evaluation before proceeding ischemic evaluation, patient had a long discussion with gasket maker patient understands the risk of not having further evaluation with catheterization can result in further myocardial necrosis as well as patient has verbalized understanding. Today patient is more hypeotensive, today patient had a cardiac echo showed mild reduction in ejection fraction 55%, patient still does not wish to pursue ischemic workup and is seen by Cardiology patient is clinically stable, Will continue to monitor the patient overnight may discharge tomorrow (2) Elevated troponin level: Code(s): R79.89 - Other specified abnormal findings of blood chemistry Status: Acute Assessment and Plan: Probable non STEMI Cardiology consulted Will start heparin drip. 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 HS Subjective Date/time seen: 12/12/19 17:48 patient is 69-year-old male with history of hypertension coronary artery disease morbid obesity with a BMI 57 patient presented emergency department with a complaint of chest pain radiating to bilateral upper extremity patient took sublingual nitro which did relieve his symptoms, upon arrival to emergency department patient chest pain had improved however patient tropes are quite elevated and his last tropes was 4.35 most likely patient has a non STEMI, patient was started on heparin drip for 48hrs, patient was seen by gasket maker, patient also had a complaint of fever, cough and shortness of breath patient, was under investigation for COVID-19, which is negative, patient is seen by gasket maker today recommending cardiac catheterization to further evaluate however patient is refusing any further workup pending his cancer evaluation before proceeding ischemic evaluation, patient had a long discussion with gasket maker patient understands the risk of not having further evaluation with catheterization can result in further myocardial necrosis as well as patient has verbalized understanding. Today patient is more hypeotensive, today patient had a cardiac echo showed mild reduction in ejection fraction 55%, patient still does not wish to pursue is
[2019-12-12] MEDS: PRAMIPEXOLE 1 MG TABLET PO (21:00)
[2019-12-12] MEDS: BACLOFEN 10 MG TABLET 20 MG PO (21:00)
[2019-12-12] MEDS: SIMVASTATIN 20 MG TABLET PO (21:00)
[2019-12-12] MEDS: TRAZODONE HCL 50 MG TABLET 100 MG PO (21:00)
[2019-12-12 21:14] LABS: Glucose Point of Care 147 (65-105)
[2019-12-13] VITALS (8 sets, daily range): BP systolic 116–139; BP diastolic 59–69; PULSE 58–108; RESP 17–18; TEMP 36.2–36.4; O2SAT 94
[2019-12-13 05:46] LABS: Basophils Absolute Auto 0.1 K/mm3 (0.0-0.1); Basophils Percent Auto 0.5 % (0.2-1.2); Eosinophils Absolute Auto 0.4 K/mm3 (0-0.3); Hematocrit 34.1 % (42.0-52.0); Hemoglobin 11.1 g/dL (14.0-18.0); Immature Granulocyte Absolute 0.14 K/mm3 (0.00-0.031); Immature Granulocyte Percent A 1.4 % (0-0.5); Lymphocytes Absolute Auto 1.06 K/mm3 (0.9-3.2); Lymphocytes Percent Auto 10.4 % (18.3-44.2); Mean Corpuscular HGB Conc 32.6 g/dl (32-36); Mean Corpuscular Hemoglobin 26.9 pg (26-34); Mean Corpuscular Volume 82.8 fl (80-100); Mean Platelet Volume 9.4 fl (7.4-10.4); Monocytes Absolute Auto 0.7 K/mm3 (0.1-0.6); Neutrophils Absolute Auto 7.8 K/mm3 (1.3-6.7); Neutrophils Percent Auto 76.7 % (45.5-73.1); Platelet Count Result 230 k/mm3 (150-375); Red Blood Count 4.12 M/mm3 (4.6-6.20); Red Cell Distribution Width 15.8 % (11.5-14.5); White Blood Count 10.2 K/mm3 (4.5-10.0)
[2019-12-13 06:30] LABS: Alanine Aminotransferase 18 U/L (4-50); Albumin Level 3.4 g/dL (3.5-5.1); Alkaline Phosphatase 47 U/L (38-126); Aspartate Amino Transferase 22 U/L (17-59); Bilirubin,Total 0.2 mg/dL (0.2-1.3); Blood Urea Nitrogen 36 mg/dL (9-20); CRP 2.1 mg/dL (<1.0); Calcium 8.5 mg/dL (8.4-10.2); Carbon Dioxide 23 mmol/L (22-30); Chloride 96 mmol/L (98-107); Estimated CRCL calculation 46 ml/min; Estimated Glomerular Filt Rate 32; Glucose 130 mg/dL (75-110); Potassium 3.5 mmol/L (3.4-5.0); Sodium 127 mmol/L (137-145)
[2019-12-13 07:30] LABS: Glucose Point of Care 159 (65-105)
[2019-12-13] MEDS: INSULIN ASPART (*BKC) 100 UNITS/ML 8 UNITS SUB-Q (08:03)
[2019-12-13] MEDS: metFORMIN HCL XR 500 MG TAB.SR.24H 1000 MG PO (08:05)
[2019-12-13] MEDS: PRASUGREL HCL 10 MG TABLET PO (08:06)
[2019-12-13] MEDS: OMEGA 3 POLYUNSAT FATTY ACIDS 1 GM CAP PO (08:06)
[2019-12-13] MEDS: ASPIRIN 81 MG ENTERIC TABLET PO (08:06)
[2019-12-13] MEDS: GABAPENTIN 400 MG CAPSULE 1200 MG PO (08:06)
[2019-12-13] MEDS: FUROSEMIDE 40 MG TABLET PO (08:06)
[2019-12-13] MEDS: POTASSIUM CHLORIDE 20 MEQ TABLET.ER PO (08:07)
[2019-12-13] MEDS: LOSARTAN POTASSIUM 50 MG TABLET PO (08:07)
[2019-12-13] MEDS: ISOSORBIDE MONONITRATE 30 MG TAB.ER.24H PO (08:07)
[2019-12-13] MEDS: DULOXETINE 60 MG CAPSULE.DR PO (08:07)
[2019-12-13] MEDS: METOPROLOL SUCCINATE EXT REL 50 MG TABCR PO (08:13)
--- NOTE | 2019-12-13 09:38 | WPDCDIQUERY2 ---
CDI Query Clarification Request -Covid 19 versus community acquired pneumonia has been documented -Covid 19 test has returned negative - Will continue antibiotic therapy if COVID-19 testing is negative -Rocephin IV and Zithromax IV are being given to patient Please clarify if pneumonia has been ruled in or ruled out. <Ernestina Yanes RN - Last Filed: 12/13/19 09:42> Clarified Diagnosis (1) CAP (community acquired pneumonia): Code(s): J18.9 - Pneumonia, unspecified organism <Ernestina Yanes RN - Last Filed: 12/13/19 09:42> Status: Acute <Ernestina Yanes RN - Last Filed: 12/13/19 09:42>
--- NOTE | 2019-12-13 11:23 | PM.DS ---
DS: Diagnosis Admitting Diagnosis Admitting Diagnosis: Chest pain, fever and cough Discharge Diagnosis (1) Suspected COVID-19 virus infection: Code(s): R68.89 - Other general symptoms and signs Status: Acute Assessment and Plan: 69-year-old male with history of hypertension coronary artery disease morbid obesity with a BMI 57 patient presented emergency department with a complaint of chest pain radiating to bilateral upper extremity patient took sublingual nitro which did relieve his symptoms, upon arrival to emergency department patient chest pain had improved however patient tropes are quite elevated and his last tropes was 4.35 most likely patient has a non STEMI, patient was started on heparin drip for 48hrs, patient was seen by overhead worker, patient also had a complaint of fever, cough and shortness of breath, pt had COVID-19, which is negative, patient is seen by overhead worker today recommending cardiac catheterization to further evaluate however patient is refusing any further workup pending his cancer evaluation. Pt to follow up cardiology on discharge. (2) Elevated troponin level: Code(s): R79.89 - Other specified abnormal findings of blood chemistry Status: Acute Assessment and Plan: Plan is above (3) Type 2 diabetes mellitus with hyperglycemia: Qualifiers: Diabetes mellitus intermodal customer service insulin use: with intermodal customer service use Qualified Code(s): E11.65 - Type 2 diabetes mellitus with hyperglycemia; Z79.4 - predatory animal exterminator (current) use of insulin Code(s): E11.65 - Type 2 diabetes mellitus with hyperglycemia Status: Acute Assessment and Plan: Restart pts home DM medications Hbaic is 7.3 Pt will follow with his PCP DS: Summary Time Spent with Patient Time attestation: Total time spent providing and/or coordinating discharge services:38 minutes on day of discharge. Exam Narrative: Exam Narrative: Morbidly obese with BMI of 55 Const: General: comfortable, no acute distress and in distress Neck: Neck: supple Resp: Effort & Inspection: normal respiratory effort Auscultation: clear to auscultation bilaterally Cardio: Rate: regular rate Rhythm: regular rhythm GI: Auscultation: normal bowel sounds Other: Morbidly obese Skin: General skin exam: normal color Neuro: Speech: normal speech Sensory Exam: normal sensation Extrem: General: normal to inspection Psych: Affect: Anxious affect present DS: Data Data Completed and Pending Labs on day of discharge: Labs from last 24 hours 12/13/19 12/13/19 12/13/19 07:26 06:08 05:21 WBC 10.2 H RBC 4.12 L Hgb 11.1 L Hct 34.1 L MCV 82.8 MCH 26.9 MCHC 32.6 RDW 15.8 H Plt Count 230 MPV 9.4 Immature Gran % (Auto) 1.4 H Neut % (Auto) 76.7 H Lymph % (Auto) 10.4 L [place] % (Auto) 7.0 Eos % (Auto) 4.0 Baso % (Auto) 0.5 Lymph # (Auto) 1.06 [place] # (Auto) 0.7 H Eos # (Auto) 0.4 H Baso # (Auto) 0.1 Abs Immat Gran (auto) 0.14 H Absolute Neuts (auto) 7.8 H Absolute Nucleated RBC 0.0 Nucleated RBC % 0.0 Sodium 127 L Potassium 3.5 Chloride 96 L Carbon Dioxide 23 BUN 36 H Creatinine 2.10 H Estim Creat Clear Calc 46 Estimated GFR 32 L Glucose 130 H POC Capillary Glucose 159 H Calcium 8.5 Total Bilirubin 0.2 AST 22 ALT 18 Alkaline Phosphatase 47 C-Reactive Protein 2.1 H Total Protein 6.0 L Albumin 3.4 L 12/12/19 12/12/19 12/12/19 21:08 16:23 11:34 WBC RBC Hgb Hct MCV MCH MCHC RDW Plt Count MPV Immature Gran % (Auto) Neut % (Auto) Lymph % (Auto) [place] % (Auto) Eos % (Auto) Baso % (Auto) Lymph # (Auto) [place] # (Auto) Eos # (Auto) Baso # (Auto) Abs Immat Gran (auto) Absolute Neuts (auto) Absolute Nucleated RBC Nucleated RBC % Sodium Potassium Chloride Carbon Di
[2019-12-13 12:10] LABS: Glucose Point of Care 133 (65-105)
--- NOTE | 2019-12-13 15:30 | PM.PNCARD ---
Progress Note: A&P Assessment and Plan (1) Non-ST elevation ND (NSTEMI): Code(s): I21.4 - Non-ST elevation (NSTEMI) myocardial infarction Status: Acute Assessment and Plan: Asymptomatic, no new issues. Does not want any further workup at this time. Continue medical therapy. -Heparin gtt discontinued. Continue aspirin, statin, nitrates, losartan, Toprol XL, and prasugrel. - 2D echo personally reviewed without significant change. - Patient has stated he is not interested in proceeding with ischemic evaluation at this time particularly coronary angiography. Although ideally I had advised coronary angiography, inlight of Acute on chronic renal failure will pursue conservative management. - Continue aggressive medical therapy. (2) CAD (coronary artery disease): Code(s): I25.10 - Atherosclerotic heart disease of [place] coronary artery without angina pectoris Status: Acute Assessment and Plan: Follow up with Dr. Ribeiro in 2 weeks. history remote stenting to LAD and RCA 2009, coronary angiography January 2018 high-grade stenosis very terminal portion apical LAD no other significant lesions patent stents medical records. (3) Acute on chronic renal failure: Code(s): N17.9 - Acute kidney failure, unspecified; N18.9 - Chronic kidney disease, unspecified Status: Acute Assessment and Plan: Improving, received his home medications, BP stable. Management per medicine. Check BMP as outpatient. (4) Cardiomyopathy: Code(s): I42.9 - Cardiomyopathy, unspecified Status: Acute Assessment and Plan: EF 40-45% by echocardiogram last hospitalization. Patient compensated from CHF perspective. Continue to monitor volume status. repeat 2D echocardiogram. Recommendations to follow after review. (5) Suspected COVID-19 virus infection: Code(s): R68.89 - Other general symptoms and signs Status: Acute Assessment and Plan: NEGATIVE. However, I remain concerned for COVID-19 clinically based upon his suspicious symptoms at presentation. (6) Aortic stenosis: Code(s): I35.0 - Nonrheumatic aortic (valve) stenosis Status: Acute Assessment and Plan: Per Dr. Ribeiro's prior assessment not significant. Patient not exhibiting symptoms suggestive of clinically severe aortic stenosis. No further workup at this time. (7) Type 2 diabetes mellitus with hyperglycemia: Qualifiers: Diabetes mellitus retirement insulin use: with termite control representative use Qualified Code(s): E11.65 - Type 2 diabetes mellitus with hyperglycemia; Z79.4 - FDC (current) use of insulin Code(s): E11.65 - Type 2 diabetes mellitus with hyperglycemia Status: Acute Assessment and Plan: Per primary service. (8) Morbid obesity with BMI of 60.0-69.9, adult: Code(s): E66.01 - Morbid (severe) obesity due to excess calories; Z68.44 - Body mass index (BMI) 60.0-69.9, adult Status: Chronic Assessment and Plan: Lifestyle modification counseling (9) Mixed hyperlipidemia: Code(s): E78.2 - Mixed hyperlipidemia Status: Acute Assessment and Plan: continue statin therapy. Goal LDL less than 70. Subjective Date/time seen: Date of Service: 12/13/19 15:30 Follow-up for chest pain, elevated troponin no new issues overnight. Patient states he feels well. No chest pain, shortness of breath, orthopnea. No palpitations. he states he feels good and would like to go home. Review of Systems Review of Systems: All systems reviewed & are unremarkable except as noted in HPI and below Constitutional: Constitutional: Reports as per HPI, Reports no additional constitutional complaints, Denies body ache(s), Denies chills, Denies excessive sweating, Reports fatigue, Denies headache(s) and Reports weakness Eyes: Eyes: Reports as per HPI and Reports no additional eye complaints ENT: Reports system reviewed and no additional c
[2019-12-14 04:09] LABS: Pneumococcal Antigen Urine Not Detected (Not Detected)
[2019-12-15 15:10] LABS: Legionella pneumophila Ag Ur Not Detected (Not Detected)
== END 2019-12-13 16:35 | disposition home or self-care (01) | DRG 280 ==
LOC: ANHED 19:45 → ANHICU 23:12 → ANH3MED 12-12 03:35 → ANHICU 12-15 13:22 → ANHIMU 12-15 13:22
PROVIDERS: Family Medicine; Internal Medicine Cardiovascular Disease; Admitting Provider Internal Medicine; Emergency Provider Emergency Medicine; PCP Family Medicine; Visit Provider Family Medicine
DX: I21.4 Non-ST elevation (NSTEMI) myocardial infarction (principal); J18.9 Pneumonia, unspecified organism; Z68.43 Body mass index [BMI] 50.0-59.9, adult; I50.32 Chronic diastolic (congestive) heart failure; I42.9 Cardiomyopathy, unspecified; I13.0 Hypertensive heart and chronic kidney disease with heart failure and stage 1 through stage 4 chronic kidney disease, or unspecified chronic kidney disease; Z20.828 Contact with and (suspected) exposure to other viral communicable diseases; N18.9 Chronic kidney disease, unspecified; E11.65 Type 2 diabetes mellitus with hyperglycemia; I35.0 Nonrheumatic aortic (valve) stenosis; M19.90 Unspecified osteoarthritis, unspecified site; I25.10 Atherosclerotic heart disease of native coronary artery without angina pectoris; K21.9 Gastro-esophageal reflux disease without esophagitis; I34.1 Nonrheumatic mitral (valve) prolapse; F32.9 Major depressive disorder, single episode, unspecified; E11.42 Type 2 diabetes mellitus with diabetic polyneuropathy; E66.01 Morbid (severe) obesity due to excess calories; G47.33 Obstructive sleep apnea (adult) (pediatric); I27.20 Pulmonary hypertension, unspecified; E78.00 Pure hypercholesterolemia, unspecified; Z79.4 Long term (current) use of insulin; Z79.82 Long term (current) use of aspirin; Z85.72 Personal history of non-Hodgkin lymphomas
CPT/HCPCS: 36415; 71046; 80048; 80053; 80076; 81001; 83036; 83605; 84484; 85025; 85380; 85610; 85730; 86140; 87040; 87449; 87635; 87804; 87899; 93005; 96365; 96366; 96367; 99285; A9270; C8929; G0378; J0456; J0696; J1644; J1815; Q9957; U0003

== ENCOUNTER 2020-01-18 08:26 | Outpatient (CLI) | payer MEDICARE, MEDICAID, SELFPAY ==
--- NOTE | ~2020-01-18 | CT_ITS ---
EXAMINATION: CT chest abdomen pelvis w con DATE: 01/18/2020 09:35 INDICATION: Follicular lymphoma. TECHNIQUE: Computed tomography (CT) of the chest, abdomen, and pelvis was performed with 100 mL Omnip aque 350 intravenous contrast. Automated exposure control and iterative reconstruction technique were employed. The dose-length product was 2097.70 mGy-cm. COMPARISON: CT pelvis 07/07/2019, CT abdomen and pelvis 05/17/2019, chest CT 03/26/2019 FINDINGS: CHEST CT: The lungs demonstrate mild atelectasis. There is a 4 mm nodule in right lower lobe, likely benign. Ca lcified left lung nodules and calcified left hilar lymph nodes are consistent with old granulomatous disease. No pleural effusion. The heart size is normal. There are coronary artery calcifications. The re are calcifications of aortic valve. No pericardial effusion. There is a right internal jugular por t with tip in right atrium. There is moderate thoracic spondylosis. ABDOMEN/PELVIS CT: The liver is normal. The gallbladder is absent. Calcifications in the spleen are consistent with old granulomatous disease. The pancreas, adrenal glands, and kidneys are normal. There are changes of mohan tral hernia repair. The prostate is moderately enlarged. There is a 6.0 x 3.0 cm right inguinal lymph node with areas of calcification, unchanged from 07/07/2019. There are no dilated loops of bowel. Th e appendix is not visualized. There are scattered diverticula in the colon. There is no free intraper itoneal fluid. There is severe lumbar spondylosis. IMPRESSION: 1. Stable enlarged right inguinal lymph node, consistent with lymphoma. Reviewed, dictated and finalized at location A.
[2020-01-18 09:21] LABS: Estimated Glomerular Filt Rate 43
== END 2020-01-18 08:27 | disposition home or self-care (01) ==
LOC: ANHIMG 08:28
PROVIDERS: PCP Family Medicine; Visit Provider Internal Medicine Hematology & Oncology
DX: C82.95 Follicular lymphoma, unspecified, lymph nodes of inguinal region and lower limb (principal)
CPT/HCPCS: 36415; 71260; 74177; Q9967

== ENCOUNTER 2020-03-30 23:16 | Inpatient (IN) | payer MEDICARE, MEDICAID, SELFPAY ==
--- NOTE | ~2020-03-30 | XR_ITS ---
EXAMINATION: XR chest ET placement DATE: 03/30/2020 23:47 INDICATION: Congestive heart failure with respiratory failure. Endotracheal tube and nasogastric tube placement. TECHNIQUE: 1. frontal view of the chest was obtained. 2. Single supine AP view of the abdomen was obtained. COMPARISON: Chest radiograph dated 12/09/2019 FINDINGS: Evaluation limited by obesity. Chest: Endotracheal tube extends to at least within 2 cm the rosalba with distal tip not clearly visualized. Right internal jugular central venous port catheter with distal tip at the caudal superior vena cava. Cardiac defibrillator pad projects over the right upper chest. Diffuse increased interstitial pattern with perihilar airspace opacities, right greater than left lik ector representing pulmonary edema although differential would include pneumonia. No pneumothorax or de finitive pleural effusion. Heart size is within normal limits for AP technique. ABDOMEN: Nasogastric tube tip in proximal side port in the body of the stomach. There is some gas extending ac ross the transverse colon. No dilated loops of bowel to suggest obstruction. IMPRESSION: 1. Nasal gastric tube in the stomach. Endotracheal tube extends to at least within 2 cm the rosalba wi th distal tip not definitive identified. Consider withdrawal by 1-2 cm and obtaining repeat images. 2. Diffuse bilateral interstitial opacities with more dense perihilar airspace opacities, right great er than left which would be consistent with provided history of congestive heart failure and pulmonar y edema. Differential would include pneumonia. Reviewed, dictated and finalized at location A. IMPRESSION: 1. Nasal gastric tube in the stomach. Endotracheal tube extends to at least wit hin 2 cm the rosalba with distal tip not definitive identified. Consider withdra wal by 1-2 cm and obtaining repeat images. 2. Diffuse bilateral interstitial opacities with more dense perihilar airspace opacities, right greater than left which would be consistent with provided hist ory of congestive heart failure and pulmonary edema. Differential would include pneumonia.
--- NOTE | ~2020-03-30 | XR_ITS ---
EXAMINATION: XR chest 1V portable INDICATION: Acute respiratory failure TECHNIQUE: Portable AP chest at 0519 hours COMPARISON: 0507 hours FINDINGS: The endotracheal tube ends approximately 4.1 cm above the rosalba. The nasogastric tube is f ollowed as far as the stomach. Its tip is beyond the inferior margin of the radiograph. A right inter nal jugular Port-A-Cath ends with its tip in the distal superior vena cava. Diffuse perihilar predomi nant interstitial opacities persist with worsening in the upper and lower lung zones. There is no ple ural effusion or pneumothorax. The heart size is normal. IMPRESSION: 1. Diffuse lung disease, consistent with pneumonia and/or pulmonary edema and/or acute respiratory di stress syndrome (ARDS). Reviewed, dictated and finalized at location A. IMPRESSION: 1. Diffuse lung disease, consistent with pneumonia and/or pulmonary edema and/o r acute respiratory distress syndrome (ARDS).
--- NOTE | ~2020-03-30 | XR_ITS ---
EXAMINATION: XR chest 1V portable INDICATION: Respiratory failure TECHNIQUE: Portable AP chest at 0513 hours COMPARISON: 0019 hours FINDINGS: The endotracheal tube ends approximately 5.0 cm above the rosalba. The nasogastric tube is f ollowed as far as the gastroesophageal junction. A right internal jugular Port-A-Cath ends with its t ip at the superior cavoatrial junction. Diffuse interstitial opacities with perihilar predominance pe rsist but are slightly improved. No pleural effusion or pneumothorax is identified. The heart size is upper limits of normal for technique. IMPRESSION: 1. Diffuse interstitial opacities with perihilar predominance, slightly improved, consistent with pul monary edema and/or pneumonia. Reviewed, dictated and finalized at location A. IMPRESSION: 1. Diffuse interstitial opacities with perihilar predominance, slightly improve d, consistent with pulmonary edema and/or pneumonia.
--- NOTE | ~2020-03-30 | XR_ITS ---
EXAMINATION: XR chest 1V portable EXAM DATE: 04/02/2020 05:25 INDICATION: Respiratory failure. TECHNIQUE: Portable AP frontal chest x-ray was obtained. Comparison is made to prior examination from 04/01/2020. FINDINGS: Endotracheal tube tip is 4-5 centimeters above the rosalba (ideal range is between 2 to 5 cm ). There is a nasogastric tube seen with tip collimated off the study, but below the left hemidiaphr agm. There is a right-sided portacatheter in position. Again there is moderate amount of ill-defined bilateral acute airspace disease, likely edema and/or i nfection. Probable small pleural effusions. There is no pneumothorax suspected. The cardiomediast inal silhouette is prominent but magnified on this AP technique. The bones and soft tissues are unr emarkable. There is no significant interval change compared to prior exam. IMPRESSION: 1. Line(s) and tube(s) in position. 2. Stable moderate amount of edema and/or infection. Reviewed, dictated and finalized at location B.
--- NOTE | ~2020-03-30 | XR_ITS ---
EXAMINATION: XR chest ET placement INDICATION: Endotracheal tube manipulation TECHNIQUE: Portable AP chest at 0019 hours COMPARISON: 03/30/2020 FINDINGS: The endotracheal tube ends approximately 4.8 cm above the rosalba. The nasogastric tube is f ollowed as far as the stomach. Its tip is beyond the inferior margin of the radiograph. Diffuse inter stitial airspace opacities with a perihilar predominance persist without significant change. There is no pleural effusion or pneumothorax. The heart size is upper limits of normal for technique. IMPRESSION: 1. Endotracheal tube approximately 4.8 cm above the rosalba. 2. Diffuse interstitial opacities with a perihilar predominance, unchanged, consistent with pulmonary edema and/or pneumonia. Reviewed, dictated and finalized at location A. IMPRESSION: 1. Endotracheal tube approximately 4.8 cm above the rosalba. 2. Diffuse interstitial opacities with a perihilar predominance, unchanged, con sistent with pulmonary edema and/or pneumonia.
--- NOTE | ~2020-03-30 | XR_ITS ---
EXAMINATION: XR chest ET placement DATE: 03/30/2020 23:47 INDICATION: Congestive heart failure with respiratory failure. Endotracheal tube and nasogastric tube placement. TECHNIQUE: 1. Frontal view of the chest was obtained. 2. Single supine AP view of the abdomen was obtained. COMPARISON: Chest radiograph dated 12/09/2019 FINDINGS: Evaluation limited by obesity. Chest: Endotracheal tube extends to at least within 2 cm the rosalba with distal tip not clearly visualized. Right internal jugular central venous port catheter with distal tip at the caudal superior vena cava. Cardiac defibrillator pad projects over the right upper chest. Diffuse increased interstitial pattern with perihilar airspace opacities, right greater than left lik ector representing pulmonary edema although differential would include pneumonia. No pneumothorax or de finitive pleural effusion. Heart size is within normal limits for AP technique. ABDOMEN: Nasogastric tube tip in proximal side port in the body of the stomach. There is some gas extending ac ross the transverse colon. No dilated loops of bowel to suggest obstruction. IMPRESSION: 1. Nasal gastric tube in the stomach. Endotracheal tube extends to at least within 2 cm the rosalba wi th distal tip not definitive identified. Consider withdrawal by 1-2 cm and obtaining repeat images. 2. Diffuse bilateral interstitial opacities with more dense perihilar airspace opacities, right great er than left which would be consistent with provided history of congestive heart failure and pulmonar y edema. Differential would include pneumonia. Reviewed, dictated and finalized at location A. IMPRESSION: 1. Nasal gastric tube in the stomach. Endotracheal tube extends to at least wit hin 2 cm the rosalba with distal tip not definitive identified. Consider withdra wal by 1-2 cm and obtaining repeat images. 2. Diffuse bilateral interstitial opacities with more dense perihilar airspace opacities, right greater than left which would be consistent with provided hist ory of congestive heart failure and pulmonary edema. Differential would include pneumonia.
[2020-03-30 23:22] VITALS: BP 119/92; PULSE 117; RESP 18; O2SAT 94
[2020-03-30] MEDS: FUROSEMIDE INJ 40 MG/4 ML VIAL IV PUSH (23:31)
--- NOTE | 2020-03-30 23:37 | PC.NURSE ---
PT GIVEN 2 MG OF VERSED AT THIS TIME FOR SEDATION PER EDP ERNESTINA ORDERS.
[2020-03-30 23:38] LABS: Basophils Absolute Auto 0.2 K/mm3 (0.0-0.1); Basophils Percent Auto 0.6 % (0.2-1.2); Eosinophils Absolute Auto 0.6 K/mm3 (0-0.3); Eosinophils Percent Auto 2.1 % (0-4.4); Hematocrit 44.1 % (42.0-52.0); Hemoglobin 13.3 g/dL (14.0-18.0); Immature Granulocyte Absolute 0.35 K/mm3 (0.00-0.031); Immature Granulocyte Percent A 1.2 % (0-0.5); Lymphocytes Absolute Auto 5.56 K/mm3 (0.9-3.2); Lymphocytes Percent Auto 19.7 % (18.3-44.2); Mean Corpuscular HGB Conc 30.2 g/dl (32-36); Mean Corpuscular Hemoglobin 27.4 pg (26-34); Mean Corpuscular Volume 90.9 fl (80-100); Mean Platelet Volume 10.3 fl (7.4-10.4); Monocytes Absolute Auto 2.3 K/mm3 (0.1-0.6); Monocytes Percent Auto 8.2 % (2.6-8.5); Neutrophils Absolute Auto 19.3 K/mm3 (1.3-6.7); Neutrophils Percent Auto 68.2 % (45.5-73.1); Platelet Count Result 274 k/mm3 (150-375); Red Blood Count 4.85 M/mm3 (4.6-6.20); Red Cell Distribution Width 16.4 % (11.5-14.5); White Blood Count 28.3 K/mm3 (4.5-10.0)
[2020-03-30 23:39] VITALS: O2SAT 97
[2020-03-30 23:45] VITALS: BP 138/85; PULSE 115; RESP 25; O2SAT 94
[2020-03-30 23:49] LABS: Prothrombin Time 12.7 Seconds (11.1-14.7)
--- NOTE | 2020-03-30 23:49 | PC.NURSE ---
2 MG OF VERSED GIVEN AT THIS TIME FOR SEDATION PER EDP ERNESTINA ORDERS.
[2020-03-30 23:50] LABS: Partial Thromboplastin Time 30.8 SECONDS (22.3-36.8)
[2020-03-30 23:53] VITALS: PULSE 105; RESP 34
[2020-03-30 23:57] VITALS: PULSE 104; O2SAT 95
[2020-03-30 23:57] LABS: Alveolar/Arterial O2 Gradient 554.8 mmHg; Base Excess ABG -6.3 mEq/l (+/-2.0); Carboxyhemoglobin 0.6 % THb (0-2.0); Fractional Inspired Oxygen 100 %; HCO3 ABG 22.7 mEq/l (22.0-26.0); Methemoglobin ABG 0.3 %THb (0-1.5); Oxygen Content ABG 17.9 %vol (16.0-22.0); Oxygen Saturation ABG 95.6 % (95.0-100.0); PO2 ABG 97.3 mmHg (80.0-100.0); PO2 FiO2 Ratio Arterial Blood 0.97 %; Reduced Hemoglobin 4.1 %THb (0-5.0); Total Hemoglobin 13.3 g/dL (12.0-18.0)
[2020-03-30 23:58] VITALS: PULSE 107; RESP 34
[2020-03-31] VITALS (33 sets, daily range): BP systolic 81–164; BP diastolic 49–99; PULSE 73–110; RESP 20–96; TEMP 36.4–39.2; O2SAT 93–100; BMI 73.3
[2020-03-31] LABS: Modified Allen's Test Pass; PCO2 ABG 60.9 mmHg (35.0-45.0); Site Drawn RIGHT RADIAL; pH ABG 7.189 (7.350-7.450)
--- NOTE | 2020-03-31 | ECHO_ITS ---
Patient Info Name: Pascual Kowalski Age: 69 years : 1950 Gender: Male Ht: 68 in Wt: 493 lbs BSA: 3.43 m2 HR: 87 bpm BP: 105 / 58 mmHg Heart Rhythm: Sinus Rhythm Technical Quality: Poor Exam Date: 03/31/2020 2:16 PM Exam Location: [facility] Patient Status: Inpatient Admit Date: 03/31/2020 Staff Ordering Physician: Morgan Ballard MD Beauty Sales Advisor: Ernestina Martinez RDCS Attending Provider: Ca Goodwin DO Exam Type: CA echo doppler color flow Study Info Indications I21.4 - Non-ST elevation (NSTEMI) myocardial infarction I35.0 - Nonrheumatic aortic (valve) stenosis Reason for Poor Study: patient body habitus Summary 1. Technically poor image quality due to massive obesity. 2. Left ventricular chamber dimension is mildly enlarged. 3. Left ventricular systolic function is mildly reduced, estimated at 45-50%. 4. Poor image quality does not allow me to discern regional wall motion abnormalities accurately. 5. Left atrial chamber dimension is moderately enlarged. 6. There is moderate aortic valve stenosis with a peak velocity of 302 cm/s, mean gradient of 14 mmHg, and aortic valve area of 1.3 cm2. 7. Again aortic valve is not well visualized given body habitus. The valves is at least moderately stenotic. Left Ventricle Left ventricular chamber dimension is mildly enlarged. Left ventricular systolic function is mildly reduced, estimated at 45-50%. Poor image quality does not allow me to discern regional wall motion abnormalities accurately. Right Ventricle Right ventricular chamber dimension is not well visualized. Left Atria Left atrial chamber dimension is moderately enlarged. Right Atria Right atrial chamber dimension is not well visualized. Aortic Valve The aortic valve is not well visualized. There is moderate aortic valve stenosis with a peak velocity of 302 cm/s, mean gradient of 14 mmHg, and aortic valve area of 1.3 cm2. Again aortic valve is not well visualized given body habitus. The valves is at least moderately stenotic. Pulmonic Valve The pulmonic valve is not well visualized. Mitral Valve The mitral valve has not well visualized and normal leaflets. Tricuspid Valve The tricuspid valve leaflets are not well visualized. Pericardium/Pleural The pericardium appears normal. There is no pericardial effusion. Aorta The aortic root size at the sinus of Valsalva is normal. Left Ventricular Outflow Tract Name Value Normal LVOT 2D LVOT Diameter 2.4 cm LVOT Doppler LVOT Peak Gradient 0 mmHg LVOT Mean Gradient 0 mmHg LVOT VTI 18 cm LVOT VTI/AV VTI Ratio 0.3 LVOT Stroke Volume 78 ml LVOT CO 6.7 l/min LVOT CI 1.9 l/min/m2 Pulmonic Valve Name Value Normal PV Doppler -----
[2020-03-31 00:01] LABS: NT Pro B Type Natriuretic Pept 565 PG/ML (5-100); Troponin I 0.032 ng/mL (0.000-0.034)
[2020-03-31 00:01] LABS: Device VENTILATOR
[2020-03-31 00:02] LABS: Arterial Blood Gas PEEP 15 cmH2O; Arterial Blood Gas Tidal Volume 640 ml; Arterial Blood Gas Vent Mode CMV; Arterial Blood Gas Ventilator rate 20 /MIN
--- NOTE | 2020-03-31 00:18 | PC.NURSE ---
0016 Dr. Huntley speaking with pt /Puja Kowalski per phone. ([phone])
--- NOTE | 2020-03-31 00:33 | ED.SOB ---
HPI - SOB/Dyspnea General Chief Complaint: Shortness of Breath/Dyspnea Stated Complaint: resp distress Time Seen by Provider: 03/30/20 23:21 History of Present Illness HPI Narrative: Patient is a 69-year-old male who presents the ER with minimum responsiveness. He is being bagged by EMS. According to EMS patient experienced some chest discomfort and some shortness of breath at home and took some nitroglycerin. He then became unresponsive. Due to habitus extraction from the home took a bit. Patient had low O2 sat in the 40s they are able to get him up into the 80s with 100% oxygen. They report patient has intermittent responsiveness with bagging but when they stop he becomes unresponsive. Related Data Home Medications Medication Instructions Recorded Confirmed aspirin 81 mg PO DAILY 05/31/19 03/31/20 isosorbide mononitrate 30 mg PO DAILY 05/31/19 03/31/20 nitroglycerin 0.4 mg SUBLINGUAL Q5MIN PRN 05/31/19 03/31/20 prasugrel 10 mg PO DAILY 05/31/19 03/31/20 omega 9-fap-ncb-fish oil [Fish Oil] 1 cap PO BID 07/07/19 03/31/20 sitagliptin 50 mg-metformin ER 1 tablet PO BID tablet 10/03/19 03/31/20 1,000 mg tablet,extended release 24h mp diphenoxylate-atropine 1 tablet PO QID PRN 12/10/19 03/31/20 meclizine 25 mg PO TID PRN 12/10/19 03/31/20 ondansetron HCl 4 mg PO Q8H PRN 12/10/19 03/31/20 diphenoxylate-atropine [Lomotil] 1 tablet PO QID PRN 03/31/20 03/31/20 gabapentin 300 mg PO BID 03/31/20 03/31/20 insulin lispro [Humalog KwikPen 8 unit SUBCUT BID 03/31/20 03/31/20 Insulin] Allergies Allergy/AdvReac Type Severity Reaction Status Date / Time No Known Allergies Allergy Unverified 02/02/20 10:01 Review of Systems Review of Systems: ROS unobtainable: Yes unobtainable due to medical condition PMFSH Past Medical History Medical History Acute respiratory failure Hospitalization June 06 through July 20, 2019 intubated 07/07/2019 through 07/14/2019 due to sepsis with septic shock, fluid overload, cellulitis with abscess of the left buttock Aortic stenosis severe on echocardiogram July 2019 Arthritis CAD (coronary artery disease) of artery bypass graft With history of stents x4. Dr. Ribeiro Cataract CHF (congestive heart failure) Echocardiogram 07/2019: Mildly reduced left ventricular systolic function EF of 40-45%, moderately increased left ventricular wall thickness, grade 1 diastolic dysfunction, decreased right ventricular systolic function, right ventricular chamber mildly enlarged, left atrial straight per moderately enlarged, severe aortic valve stenosis with valve area of 0.62, severe aortic valve calcification, mild tricuspid regurgitation, moderate pulmonary hypertension with RVSP of 52 Depression Diabetes Follicular low grade B-cell lymphoma GERD (gastroesophageal reflux disease) Hypercholesterolemia Hypertension Mitral valve prolapse Morbid (severe) obesity due to excess calories Morbid obesity with BMI of 60.0-69.9, adult Non-Hodgkin lymphoma He is a patient of Dr. Oliveira. Peripheral neuropathy Pulmonary hypertension Moderate on echocardiogram from 2018 Restless legs syndrome Sleep apnea Patient does not use a CPAP at nighttime. Unspecified background retinopathy Surgical History Surgical History H/O arthroscopic knee surgery H/O cardiac catheterization H/O inguinal hernia repair History of appendectomy Hx of tonsillectomy Social History Social History Social History: Mr. Kowalski is and lives with his in [place], [place]. He designates his , Puja, as his surrogate decision maker and he wishes to be a full code. He denies alcohol, tobacco, and drug use. His primary care provider is Dr. Leo Doss. Smoking status: Never smoker Alcohol intake: former Substance use: never Gender
--- NOTE | 2020-03-31 00:39 | PCRCNOTE ---
PT INTUBATED WITH 7.5 ETT, 26 @LIP. GROSS PULMONARY EDEMA PRESENT, PEEP SET TO 10CMWP INITIALLY, THEN RAISED TO 15CMWP. SEVERAL FAILED ATTEMPTS TO PLACE PT ON VENTILATOR. SETTINGS ADJUSTED TO VT 640, PEEP 15, R20, 100% WITH INVERSE I:E RATIO (2:1). PT TOLERATED THIS WELL; ABG DRAWN. SETTINGS THEN SLOWLY DECREASED UNTIL VT 600, R20, +10, 100% WITH I:3 RATIO OF 1:2.0. SETTING RELAYED TO AND APPROVED BY DR MOHR. ETT PULLED BACK TO 24@LIP.
[2020-03-31 00:46] LABS: Alanine Aminotransferase 32 U/L (4-50); Albumin Level 4.3 g/dL (3.5-5.1); Alkaline Phosphatase 61 U/L (38-126); Anion Gap 14 mmol/L (8-16); Aspartate Amino Transferase 72 U/L (17-59); Bilirubin,Total 0.4 mg/dL (0.2-1.3); Blood Urea Nitrogen 32 mg/dL (9-20); Calcium 9.3 mg/dL (8.4-10.2); Carbon Dioxide 24 mmol/L (22-30); Chloride 99 mmol/L (98-107); Estimated Glomerular Filt Rate 33; Glucose 312 mg/dL (75-110); Potassium 4.4 mmol/L (3.4-5.0); Sodium 137 mmol/L (137-145)
--- NOTE | 2020-03-31 01:30 | ADMGEN ---
This patient, Pascual Kowalski, was admitted to Intensive Care Unit-11. Patient/family oriented to hospital policies and general routines including ID bracelet, bed and alarms, visiting hours, pain management, procedures, bathroom and other care routines, personal items, smoking policy, room service/diet, and visiting hours. Valuables list has been completed. Information on how to activate the Rapid Response Team has been discussed. Patient/Family are encouraged to report perceived risks to care and to ask questions if they do not understand what they are told or what they should do.
--- NOTE | 2020-03-31 03:25 | PM.IMHP ---
H&P: HPI History of Present Illness Date/Time: 03/31/20 00:45 Chief complaint: Respiratory distress Narrative: Pascual Kowalski is a 69 year old male well known to the hospitalist service with a past medical history severe aortic stenosis, coronary artery disease, combined systolic and diastolic congestive heart failure and morbid obesity who presented to the ER after having sudden onset of respiratory distress. Per ER report the patient had reported mild episode of chest pain. He then shortly thereafter developed respiratory distress. His called EMS. When EMS arrived at the patient's home he was satting 50% on room air. And IO was placed in the field. The patient was being bagged when he arrived to the ER. The patient was intubated with a 7.5 ET tube measuring 25 cm at the lip on arrival to the ER. The patient's x-ray could not determine where the tip the ET it was felt ET tube is too deep in his tube was pulled back 2 cm to 23. The patient received 40 mg of IV Lasix in the ER and had prompt output of over a liter of urine. The patient was intubated and sedated at the time my evaluation. I evaluated the patient while he was still in the ER. at the time I last evaluated the patient's weight was 172.3 kg. His weight on arrival to the ICU was 218 kg. The patient was noted to have pitting edema to lower extremities. even with sedation the patient was attempting to move his upper extremities and was coughing against the vent. Source of information is past medical records and ER records. There was no family at bedside to provide further information . Review of Systems Review of Systems: ROS unobtainable: Yes unobtainable due to endotracheal tube PMFSH Past Medical History Medical History Acute respiratory failure Hospitalization June 06 through July 20, 2019 intubated 07/07/2019 through 07/14/2019 due to sepsis with septic shock, fluid overload, cellulitis with abscess of the left buttock Aortic stenosis severe on echocardiogram July 2019 Arthritis CAD (coronary artery disease) of artery bypass graft With history of stents x4. Dr. Ribeiro Cataract CHF (congestive heart failure) Echocardiogram 07/2019: Mildly reduced left ventricular systolic function EF of 40-45%, moderately increased left ventricular wall thickness, grade 1 diastolic dysfunction, decreased right ventricular systolic function, right ventricular chamber mildly enlarged, left atrial straight per moderately enlarged, severe aortic valve stenosis with valve area of 0.62, severe aortic valve calcification, mild tricuspid regurgitation, moderate pulmonary hypertension with RVSP of 52 Depression Diabetes Follicular low grade B-cell lymphoma GERD (gastroesophageal reflux disease) Hypercholesterolemia Hypertension Mitral valve prolapse Morbid (severe) obesity due to excess calories Morbid obesity with BMI of 60.0-69.9, adult Non-Hodgkin lymphoma He is a patient of Dr. Oliveira. Peripheral neuropathy Pulmonary hypertension Moderate on echocardiogram from 2019 Restless legs syndrome Sleep apnea Patient does not use a CPAP at nighttime. Unspecified background retinopathy Surgical History Surgical History H/O arthroscopic knee surgery H/O cardiac catheterization H/O inguinal hernia repair History of appendectomy Hx of tonsillectomy Social History Social History Social History: Mr. Kowalski is and lives with his in [place], [place]. He designates his , Puja, as his surrogate decision maker and he wishes to be a full code. He denies alcohol, tobacco, and drug use. His primary care provider is Dr. Leo Doss. Smoking status: Never smoker Alcohol intake: former Substance use: never Gender identity (if verbalized by the patient): Male Sexual Orie
[2020-03-31 04:26] LABS: Carboxyhemoglobin 0.2 % THb (0-2.0); Fractional Inspired Oxygen 80 %; HCO3 ABG 23.6 mEq/l (22.0-26.0); Methemoglobin ABG 0.2 %THb (0-1.5); Oxygen Content ABG 17.1 %vol (16.0-22.0); Oxygen Saturation ABG 92.7 % (95.0-100.0); Oxyhemoglobin 92.5 % THb (90.0-100.0); PCO2 ABG 43.5 mmHg (35.0-45.0); PO2 ABG 67.7 mmHg (80.0-100.0); PO2 FiO2 Ratio Arterial Blood 0.85 %; Reduced Hemoglobin 7.1 %THb (0-5.0); Total Hemoglobin 13.1 g/dL (12.0-18.0); pH ABG 7.352 (7.350-7.450)
[2020-03-31 04:27] LABS: Arterial Blood Gas Vent Mode CMV; Arterial Blood Gas Ventilator rate 20 /MIN; Device VENTILATOR; Modified Allen's Test Unable to perform; Site Drawn RIGHT RADIAL
[2020-03-31 04:28] LABS: Arterial Blood Gas PEEP 10 cmH2O; Arterial Blood Gas Tidal Volume 600 ml
[2020-03-31] MEDS: HEPARIN SOD/D5W 100 UNITS/ML 25,000 UNITS/250 ML BAG 10 UNITS IV CONT (04:32)
[2020-03-31] MEDS: HEPARIN SODIUM 5,000 UNITS/ML VIAL 4000 UNITS IV PUSH ×2 (04:46→13:03)
[2020-03-31 06:07] LABS: Basophils Absolute Auto 0.1 K/mm3 (0.0-0.1); Basophils Percent Auto 0.4 % (0.2-1.2); Eosinophils Absolute Auto 0.1 K/mm3 (0-0.3); Eosinophils Percent Auto 0.5 % (0-4.4); Hematocrit 38.8 % (42.0-52.0); Hemoglobin 12.1 g/dL (14.0-18.0); Immature Granulocyte Absolute 0.09 K/mm3 (0.00-0.031); Immature Granulocyte Percent A 0.6 % (0-0.5); Lymphocytes Absolute Auto 0.89 K/mm3 (0.9-3.2); Lymphocytes Percent Auto 5.6 % (18.3-44.2); Mean Corpuscular HGB Conc 31.2 g/dl (32-36); Mean Corpuscular Hemoglobin 27.5 pg (26-34); Mean Corpuscular Volume 88.2 fl (80-100); Mean Platelet Volume 10.5 fl (7.4-10.4); Monocytes Absolute Auto 1.2 K/mm3 (0.1-0.6); Monocytes Percent Auto 7.7 % (2.6-8.5); Neutrophils Absolute Auto 13.6 K/mm3 (1.3-6.7); Neutrophils Percent Auto 85.2 % (45.5-73.1); Platelet Count Result 194 k/mm3 (150-375); Red Cell Distribution Width 16.3 % (11.5-14.5)
[2020-03-31 06:17] LABS: INR 1.1; Prothrombin Time 14.3 Seconds (11.1-14.7)
[2020-03-31 06:19] LABS: Partial Thromboplastin Time 85.6 SECONDS (22.3-36.8)
[2020-03-31 06:21] LABS: Alanine Aminotransferase 38 U/L (4-50); Albumin Level 3.7 g/dL (3.5-5.1); Alkaline Phosphatase 59 U/L (38-126); Anion Gap 7 mmol/L (8-16); Aspartate Amino Transferase 196 U/L (17-59); Bilirubin,Total 0.4 mg/dL (0.2-1.3); Blood Urea Nitrogen 32 mg/dL (9-20); Calcium 8.7 mg/dL (8.4-10.2); Carbon Dioxide 29 mmol/L (22-30); Chloride 99 mmol/L (98-107); Estimated CRCL calculation 65 ml/min; Estimated Glomerular Filt Rate 38; Glucose 191 mg/dL (75-110); Magnesium 1.7 mg/dL (1.6-2.3); Potassium 4.3 mmol/L (3.4-5.0); Sodium 135 mmol/L (137-145)
[2020-03-31] MEDS: FUROSEMIDE INJ 40 MG/4 ML VIAL IV PUSH ×2 (08:16→20:32)
--- NOTE | 2020-03-31 08:48 | PM.CNCAR ---
Assessment and Plan Assessment and plan (1) Non-ST elevation [place] (NSTEMI): Code(s): I21.4 - Non-ST elevation (NSTEMI) myocardial infarction Status: Acute Assessment and Plan: 69-year-old male with past medical history of CAD, coronary artery disease status post PCI to LAD and right coronary artery 2009, moderate-severe aortic stenosis, type 2 diabetes mellitus, history of non-Hodgkin's lymphoma, obstructive sleep apnea noncompliant with CPAP, pulmonary hypertension, hypertension, dyslipidemia. Patient admitted with worsening shortness of breath and chest pressure. EKG shows subtle ST T wave abnormalities, and troponins are significantly elevated with current peak troponin level of 45.2. Patient has known coronary disease and history of PCI/stenting. The angiographic findings from 01/15/2018 cardiac catheterization are described above in the HPI section. In addition, patient is found to have moderate to severe aortic stenosis on recent echocardiogram. Patient is morbidly obese with a BMI of about 73. He also history of non-Hodgkin lymphoma and history of chemotherapy. His overall prognosis from non-Hodgkin lymphoma is uncertain at this time. - I spoke with patient's and gathered as much information as possible. - At this time, I recommend hematology evaluation to check his prognosis for underlying lymphoma before any further invasive cardiac workup for patient's coronary disease and aortic stenosis. - continue heparin, add aspirin. - will recheck echocardiogram with Doppler to reassess LV function and wall motion (2) Respiratory failure, acute: Qualifiers: Respiratory failure complication: hypoxia and hypercapnia Qualified Code(s): J96.01 - Acute respiratory failure with hypoxia; J96.02 - Acute respiratory failure with hypercapnia Code(s): J96.00 - Acute respiratory failure, unspecified whether with hypoxia or hypercapnia Status: Acute Assessment and Plan: Vent management as per critical care physician. Patient is also being ruled out for COVID-19. (3) Severe aortic stenosis: Code(s): I35.0 - Nonrheumatic aortic (valve) stenosis Status: Acute Assessment and Plan: Management as described above (4) CAD (coronary artery disease): Code(s): I25.10 - Atherosclerotic heart disease of [place] coronary artery without angina pectoris Status: Acute Assessment and Plan: Heparin, aspirin, supportive care for now pending hematology evaluation History of Present Illness History of Present Illness Consult date/time: 03/31/20 08:48 Date of service: 03/31/2020 Requesting physician:Dr Huntley Reason for consult:CHF Chief complaint: HPI:69-year-old male with past medical history of CAD, coronary artery disease status post PCI to LAD and right coronary artery 2010, moderate-severe aortic stenosis, type 2 diabetes mellitus, history of non-Hodgkin's lymphoma, obstructive sleep apnea noncompliant with CPAP, pulmonary hypertension, hypertension, dyslipidemia. Patient brought to [facility] emergency room on 03/30/2020 with altered mental status. As per notes, EMS reported that patient experienced some chest discomfort and some shortness of breath at home and took nitroglycerin. He then became unresponsive. Patient had low O2 sat in the 40s which improved to 80s with 100% oxygen. Patient was subsequently intubated and is currently in the ICU. Patient's EKG on presentation which I personally evaluated showed sinus tachycardia, anteroseptal infarct, probably old, nonspecific ST-T abnormalities. Subsequent EKG performed today shows sinus rhythm, old septal infarction, ST-T abnormality suggestive of ischemia. Recent echocardiogram from 12/12/2019 reported ejection fraction 50-55%, grade 1 diastolic dysfunction, moderate LAE, moderate-severe aortic stenosis, valve area 1.1 cm2, V max 4.2 m/sec, mean gradient 40 mmHg. Troponins on this admi
--- NOTE | 2020-03-31 09:52 | PM.IMPN ---
Progress Note: A&P Assessment and Plan (1) Respiratory failure, acute: Qualifiers: Respiratory failure complication: hypoxia and hypercapnia Qualified Code(s): J96.01 - Acute respiratory failure with hypoxia; J96.02 - Acute respiratory failure with hypercapnia Code(s): J96.00 - Acute respiratory failure, unspecified whether with hypoxia or hypercapnia Status: Acute Assessment and Plan: Stable on vent Continue to support with low volume protocol (2) Pneumonia: Qualifiers: Pneumonia type: due to unspecified organism Laterality: unspecified laterality Lung location: unspecified part of lung Qualified Code(s): J18.9 - Pneumonia, unspecified organism Code(s): J18.9 - Pneumonia, unspecified organism Status: Acute Assessment and Plan: Continue ceftriaxone and azithromycin SARS-CoV-2 rt-PCR pending (3) Cardiomyopathy: Qualifiers: Cardiomyopathy type: unspecified Qualified Code(s): I42.9 - Cardiomyopathy, unspecified Code(s): I42.9 - Cardiomyopathy, unspecified Status: Acute (4) Non-ST elevation [place] (NSTEMI): Code(s): I21.4 - Non-ST elevation (NSTEMI) myocardial infarction Status: Acute Assessment and Plan: Likely due to pneumonia, CHF, , sepsis, underlying CAD (5) Suspected COVID-19 virus infection: Code(s): R68.89 - Other general symptoms and signs Status: Acute Assessment and Plan: SARS-CoV-2 rt-PCR pending (6) Type 2 diabetes mellitus with hyperglycemia: Qualifiers: Diabetes mellitus jail insulin use: with jail use Qualified Code(s): E11.65 - Type 2 diabetes mellitus with hyperglycemia; Z79.4 - residential (current) use of insulin Code(s): E11.65 - Type 2 diabetes mellitus with hyperglycemia Status: Acute Assessment and Plan: Continue SSI (7) Aortic stenosis: Qualifiers: Cardiac valve disease etiology: etiology unspecified Qualified Code(s): I35.0 - Nonrheumatic aortic (valve) stenosis Code(s): I35.0 - Nonrheumatic aortic (valve) stenosis Status: Acute Assessment and Plan: Severe by prior evaluation (8) Atherosclerotic heart disease of [place] coronary artery with other forms of angina pectoris: Code(s): I25.118 - Atherosclerotic heart disease of [place] coronary artery with other forms of angina pectoris Status: Acute Subjective Date/time seen: 03/31/20 09:52 Interval history: Sedated and intubated. Review of Systems Review of Systems: ROS unobtainable: Yes unobtainable due to medical condition Exam Narrative: Exam Narrative: HEENT: EOMI, PERRL, sclerae nonicteric, pharyngeal mucosa pink and intact. ET tube present NECK: No JVD seen CHEST: Decrease BS. HEART: NL S1/S2, regular, no murmur ABDOMEN: BS+, soft, nontender, no mass, no bruits EXTREMITIES: No cyanosis; 2+ pedal edema bilaterally NEUROLOGIC: CN intact and symmetric to inspection. MUSCULOSKELETAL: Tone symmetric PSYCH: sedated Objective Data Vital Signs Vital Signs: Vital Signs - 24 hr 03/30/20 23:22 03/30/20 23:39 03/30/20 23:45 Temperature Pulse Rate 117 H 115 H Respiratory Rate 18 25 H Blood Pressure 119/92 H 138/85 Pulse Oximetry 94 97 94 03/30/20 23:53 03/30/20 23:57 03/30/20 23:58 Temperature Pulse Rate 105 H 104 H 107 H Respiratory Rate 34 H 34 H Blood Pressure Pulse Oximetry 95 03/31/20 00:00 03/31/20 00:02 03/31/20 00:20 Temperature Pulse Rate 110 H 106 H 107 H Respiratory Rate 35 H 22 H 20 Blood Pressure 153/99 H 158/98 H Pulse Oximetry 95 93 03/31/20 00:49 03/31/20 01:09 03/31/20 01:49 Temperature 97.5 F L 98.1 F Pulse Rate 105 H 106 H 98 Respiratory Rate 20 20 Blood Pressure 164/97 H 129/92 H Pulse Oximetry 95 94 96 03/31/20 01:57 03/31/20 01:58 03/31/20 02:00 Temperature 98.4 F Pulse Rate 94 94 98 Respiratory Rate 20 20 20 Blood Pressure 90/61 L P
--- NOTE | 2020-03-31 10:47 | WPDCNINT ---
Assessment and Plan Assessment and plan (1) Respiratory failure, acute: Qualifiers: Respiratory failure complication: hypoxia and hypercapnia Qualified Code(s): J96.01 - Acute respiratory failure with hypoxia; J96.02 - Acute respiratory failure with hypercapnia Code(s): J96.00 - Acute respiratory failure, unspecified whether with hypoxia or hypercapnia Status: Acute Assessment and Plan: presented with SOB, minimal responsiveness. Intubated in ER on 03/30/2020 - likely due to CHF, Pneumonia, possible covid-19 - started on Azithromycin and Ceftriaxone -sedated with fentanyl and versed, maintain RASS of 0 to -2 - continue diuresis (2) Pneumonia: Code(s): J18.9 - Pneumonia, unspecified organism Status: Acute Assessment and Plan: as above (3) Suspected COVID-19 virus infection: Code(s): R68.89 - Other general symptoms and signs Status: Acute Assessment and Plan: SARs-CoV-2 PCR obtained and pending - continue airborne, droplet and contact isolation/precaution (4) Non-ST elevation [place] (NSTEMI): Code(s): I21.4 - Non-ST elevation (NSTEMI) myocardial infarction Status: Acute Assessment and Plan: NSTEMI with increased troponin cardiology following, pt will known CAD - continue Heparin gtt, ASA - recheck Echo to assess LV function and wall motion - Cardiology recommended asking Heme/onc to evalate pt and provide prognosis for underlying lymphoma before any further invasive cardiac workup for patient's coronary disease and aortic stenosis is undertaken (5) Acute on chronic renal failure: Qualifiers: Acute renal failure type: unspecified Chronic kidney disease stage: stage 3 (moderate) Qualified Code(s): N17.9 - Acute kidney failure, unspecified; N18.3 - Chronic kidney disease, stage 3 (moderate) Code(s): N17.9 - Acute kidney failure, unspecified; N18.9 - Chronic kidney disease, unspecified Status: Acute Assessment and Plan: DAWNA on chronic renal failure, likely due CHF, volume overload, DM, hypoperfusion. - creatinine improving with good UO in response to diuretics - continue to monitor UO, renal function and electrolytes (6) Morbid obesity with BMI of 60.0-69.9, adult: Code(s): E66.01 - Morbid (severe) obesity due to excess calories; Z68.44 - Body mass index (BMI) 60.0-69.9, adult Status: Chronic Assessment and Plan: chronic obesity (7) Aortic stenosis: Code(s): I35.0 - Nonrheumatic aortic (valve) stenosis Status: Acute Assessment and Plan: check repeat echo work after hem/onc evaluates the pt (8) DVT prophylaxis: Code(s): Z29.9 - Encounter for prophylactic measures, unspecified Status: Acute Assessment and Plan: DVT prophylaxis: On heparin gtt GI prophylaxis: famotidine Additional Plan Will update family code status: Full code critical care time spent: 49 minutes Due to a high probability of clinically significant, life threatening deterioration, the patient required my highest level of preparedness to intervene emergently and I personally spent this critical care time directly and personally managing the patient. This critical care time included obtaining a history; examining the patient; pulse oximetry; ordering and review of studies; arranging urgent treatment with development of a management plan; evaluation of patient's response to treatment; frequent reassessment; and discussions with other providers. It was exclusive of separately billable procedures and treating other patients and teaching time. 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
[2020-03-31 12:11] LABS: Glucose Point of Care 184 (65-105)
[2020-03-31 12:31] LABS: Partial Thromboplastin Time 38.1 SECONDS (22.3-36.8)
[2020-03-31 18:20] LABS: Partial Thromboplastin Time 80.7 SECONDS (22.3-36.8)
[2020-03-31 18:32] LABS: Glucose Point of Care 168 (65-105)
[2020-03-31 19:30] LABS: SARS-CoV-2 RNA PCR Negative
[2020-03-31] MEDS: FAMOTIDINE 20 MG/2 ML VIAL IV PUSH (20:32)
[2020-03-31] MEDS: CENTRAL LINE FLUSH 10 ML IV PUSH (20:39)
[2020-04-01] VITALS (29 sets, daily range): BP systolic 92–134; BP diastolic 44–85; PULSE 69–110; RESP 24–27; TEMP 36.9–39.3; O2SAT 97–100
[2020-04-01] MEDS: HEPARIN SOD/D5W 100 UNITS/ML 25,000 UNITS/250 ML BAG 15 UNITS IV CONT (00:04)
[2020-04-01 00:33] LABS: Glucose Point of Care 176 (65-105)
[2020-04-01 00:48] LABS: Partial Thromboplastin Time > 200.0 SECONDS (22.3-36.8)
[2020-04-01] MEDS: CENTRAL LINE FLUSH 10 ML IV PUSH ×2 (05:44→20:22)
[2020-04-01 05:45] LABS: Alveolar/Arterial O2 Gradient 309.3 mmHg; Base Excess ABG 1.7 mEq/l (+/-2.0); Carboxyhemoglobin 0.4 % THb (0-2.0); Fractional Inspired Oxygen 60 %; HCO3 ABG 25.8 mEq/l (22.0-26.0); Methemoglobin ABG 0.2 %THb (0-1.5); Oxygen Content ABG 16.1 %vol (16.0-22.0); Oxygen Saturation ABG 95.6 % (95.0-100.0); Oxyhemoglobin 94.1 % THb (90.0-100.0); PO2 ABG 75.6 mmHg (80.0-100.0); PO2 FiO2 Ratio Arterial Blood 1.26 %; Reduced Hemoglobin 5.3 %THb (0-5.0); Total Hemoglobin 12.1 g/dL (12.0-18.0); pH ABG 7.439 (7.350-7.450)
[2020-04-01 05:46] LABS: Arterial Blood Gas Vent Mode CMV; Arterial Blood Gas Ventilator rate 24 /MIN; Device VENTILATOR; Modified Allen's Test Pass; Site Drawn RIGHT RADIAL
[2020-04-01 05:47] LABS: Arterial Blood Gas PEEP 10 cmH2O; Arterial Blood Gas Tidal Volume 500 ml
[2020-04-01 05:55] LABS: Basophils Absolute Auto 0.1 K/mm3 (0.0-0.1); Basophils Percent Auto 0.6 % (0.2-1.2); Eosinophils Absolute Auto 0.2 K/mm3 (0-0.3); Eosinophils Percent Auto 1.5 % (0-4.4); Hemoglobin 10.9 g/dL (14.0-18.0); Immature Granulocyte Absolute 0.08 K/mm3 (0.00-0.031); Immature Granulocyte Percent A 0.8 % (0-0.5); Lymphocytes Absolute Auto 0.95 K/mm3 (0.9-3.2); Lymphocytes Percent Auto 9.2 % (18.3-44.2); Mean Corpuscular HGB Conc 31.1 g/dl (32-36); Mean Corpuscular Volume 86.8 fl (80-100); Mean Platelet Volume 10.6 fl (7.4-10.4); Monocytes Percent Auto 9.3 % (2.6-8.5); Neutrophils Absolute Auto 8.1 K/mm3 (1.3-6.7); Neutrophils Percent Auto 78.6 % (45.5-73.1); Platelet Count Result 184 k/mm3 (150-375); Red Blood Count 4.03 M/mm3 (4.6-6.20); Red Cell Distribution Width 16.4 % (11.5-14.5); White Blood Count 10.4 K/mm3 (4.5-10.0)
[2020-04-01 06:08] LABS: INR 1.5
[2020-04-01 06:16] LABS: Glucose Point of Care 152 (65-105)
[2020-04-01 06:17] LABS: Alanine Aminotransferase 32 U/L (4-50); Albumin Level 3.5 g/dL (3.5-5.1); Alkaline Phosphatase 53 U/L (38-126); Anion Gap 4 mmol/L (8-16); Aspartate Amino Transferase 125 U/L (17-59); Bilirubin,Total 0.4 mg/dL (0.2-1.3); Blood Urea Nitrogen 31 mg/dL (9-20); Calcium 8.5 mg/dL (8.4-10.2); Carbon Dioxide 32 mmol/L (22-30); Chloride 101 mmol/L (98-107); Estimated CRCL calculation 69 ml/min; Estimated Glomerular Filt Rate 40; Glucose 167 mg/dL (75-110); Magnesium 1.6 mg/dL (1.6-2.3); Phosphorus 2.9 mg/dL (2.5-4.5); Potassium 3.8 mmol/L (3.4-5.0); Sodium 137 mmol/L (137-145)
[2020-04-01 06:31] LABS: CRP 14.2 mg/dL (<1.0)
[2020-04-01 07:43] LABS: Partial Thromboplastin Time 43.6 SECONDS (22.3-36.8)
[2020-04-01 08:31] LABS: Glucose Point of Care 158 (65-105)
[2020-04-01] MEDS: FUROSEMIDE INJ 40 MG/4 ML VIAL IV PUSH ×2 (08:39→20:22)
[2020-04-01] MEDS: FAMOTIDINE 20 MG/2 ML VIAL IV PUSH ×2 (08:39→20:20)
--- NOTE | 2020-04-01 08:58 | PHAR ---
Heparin protocol rate change did not correlate with protocol instructions. Ernestina Jasso stated Dr Rico ordered a one time off protocol rate increase.
--- NOTE | 2020-04-01 09:38 | PM.PNCARD ---
Progress Note: A&P Assessment and Plan (1) Non-ST elevation [place] (NSTEMI): Code(s): I21.4 - Non-ST elevation (NSTEMI) myocardial infarction Status: Acute Assessment and Plan: 69-year-old male with past medical history of CAD, coronary artery disease status post PCI to LAD and right coronary artery 2009, moderate-severe aortic stenosis, type 2 diabetes mellitus, history of non-Hodgkin's lymphoma, obstructive sleep apnea noncompliant with CPAP, pulmonary hypertension, hypertension, dyslipidemia. Patient admitted with worsening shortness of breath and chest pressure. EKG shows subtle ST T wave abnormalities, and troponins are significantly elevated with current peak troponin level of 45.2. Patient has known coronary disease and history of PCI/stenting. The angiographic findings from 01/15/2018 cardiac catheterization are described above in the HPI section. In addition, patient is found to have moderate to severe aortic stenosis on recent echocardiogram. Patient is morbidly obese with a BMI of about 73. He also history of non-Hodgkin lymphoma and history of chemotherapy. His overall prognosis from non-Hodgkin lymphoma is uncertain at this time. - recommend hematology evaluation to check his prognosis for underlying lymphoma before any further invasive cardiac workup for patient's coronary disease and aortic stenosis. - continue heparin, add aspirin. - will recheck echocardiogram with Doppler to reassess LV function and wall motion (2) Respiratory failure, acute: Qualifiers: Respiratory failure complication: hypoxia and hypercapnia Qualified Code(s): J96.01 - Acute respiratory failure with hypoxia; J96.02 - Acute respiratory failure with hypercapnia Code(s): J96.00 - Acute respiratory failure, unspecified whether with hypoxia or hypercapnia Status: Acute Assessment and Plan: Vent management as per critical care physician. initial COVID-19 negative. (3) Severe aortic stenosis: Code(s): I35.0 - Nonrheumatic aortic (valve) stenosis Status: Deleted Assessment and Plan: Management as described above (4) CAD (coronary artery disease): Code(s): I25.10 - Atherosclerotic heart disease of [place] coronary artery without angina pectoris Status: Acute Assessment and Plan: Heparin, aspirin, supportive care for now pending hematology evaluation Subjective Date/time seen: 04/01/20 09:38 04/01/2020-patient remains intubated. Today he is more alert and responds to verbal stimuli. Patient remains on unfractionated heparin for anticoagulation. He denies any ongoing chest pain through gestures. . Patient's initial COVID 19 PCR is negative. Interval history: Sedated and intubated. Exam Const: General: no acute distress, alert and awake Other: intubated, More alert today HENMT: Head: normocephalic and atraumatic Ears: hearing grossly normal bilaterally and external ears normal General nose exam: no epistaxis Face and sinus: normal facial exam and no ecchymosis Mouth: Yes tongue normal and Yes moist mucous membranes Teeth and gingiva: dentition normal Other: orotracheal tube is in place Eyes: Conjunctivae: conjunctivae normal Sclera: sclerae normal Pupils: Equal, round and reactive pupils present EOM: EOMs intact bilaterally Other: EOMI Neck: Neck: normal visual inspection, supple and no JVD Thyroid: thyroid normal Carotids: normal carotid upstroke Other: thick neck Resp: Effort & Inspection: normal respiratory effort and able to speak in complete sentences Auscultation: clear to auscultation bilaterally Other: bilateral vent sounds Cardio: Jugular venous distension: no JVD Rate: regular rate Rhythm: regular rhythm Heart sounds: Murmur heart sound present Other: distant heart sounds due to body habitus GI: Inspection: normal to inspection Auscultation: normal bowel sounds Other: obese, soft Skin: Other: no rash on expose
[2020-04-01] MEDS: ASPIRIN 81 MG CHEWABLE TABLET PO (11:38)
[2020-04-01 11:47] LABS: Glucose Point of Care 202 (65-105)
[2020-04-01] MEDS: INSULIN ASPART (*BKC) 100 UNITS/ML SUB-Q (11:54)
--- NOTE | 2020-04-01 14:35 | WPDINTPN ---
Progress Note: A&P Assessment and Plan (1) Respiratory failure, acute: Qualifiers: Respiratory failure complication: hypoxia and hypercapnia Qualified Code(s): J96.01 - Acute respiratory failure with hypoxia; J96.02 - Acute respiratory failure with hypercapnia Code(s): J96.00 - Acute respiratory failure, unspecified whether with hypoxia or hypercapnia Status: Acute Assessment and Plan: presented with SOB, minimal responsiveness. Intubated in ER on 03/30/2020 - likely due to CHF, Pneumonia, possible covid-19 - started on Azithromycin and Ceftriaxone - chest x-ray and ABGs reviewed, ventilator adjusted -sedated with fentanyl and versed, maintain RASS of 0 to -2 - continue diuresis (2) Pneumonia: Qualifiers: Laterality: unspecified laterality Lung location: unspecified part of lung Pneumonia type: due to unspecified organism Qualified Code(s): J18.9 - Pneumonia, unspecified organism Code(s): J18.9 - Pneumonia, unspecified organism Status: Acute Assessment and Plan: as above (3) Suspected COVID-19 virus infection: Code(s): R68.89 - Other general symptoms and signs Status: Acute Assessment and Plan: SARs-CoV-2 PCR NEGATIVE - discontinue airborne, droplet and contact isolation/precaution (4) Non-ST elevation [place] (NSTEMI): Code(s): I21.4 - Non-ST elevation (NSTEMI) myocardial infarction Status: Acute Assessment and Plan: NSTEMI with increased troponin cardiology following, pt will known CAD - continue Heparin gtt, ASA - recheck Echo to assess LV function and wall motion - Cardiology recommended asking Heme/onc to evalate pt and provide prognosis for underlying lymphoma before any further invasive cardiac workup for patient's coronary disease and aortic stenosis is undertaken (5) Acute on chronic renal failure: Qualifiers: Acute renal failure type: unspecified Chronic kidney disease stage: stage 3 (moderate) Qualified Code(s): N17.9 - Acute kidney failure, unspecified; N18.3 - Chronic kidney disease, stage 3 (moderate) Code(s): N17.9 - Acute kidney failure, unspecified; N18.9 - Chronic kidney disease, unspecified Status: Acute Assessment and Plan: DAWNA on chronic renal failure, likely due CHF, volume overload, DM, hypoperfusion. - creatinine improving with good UO in response to diuretics - continue to monitor UO, renal function and electrolytes (6) Morbid obesity with BMI of 60.0-69.9, adult: Code(s): E66.01 - Morbid (severe) obesity due to excess calories; Z68.44 - Body mass index (BMI) 60.0-69.9, adult Status: Chronic Assessment and Plan: chronic obesity (7) Aortic stenosis: Qualifiers: Cardiac valve disease etiology: etiology unspecified Qualified Code(s): I35.0 - Nonrheumatic aortic (valve) stenosis Code(s): I35.0 - Nonrheumatic aortic (valve) stenosis Status: Acute Assessment and Plan: check repeat echo work after hem/onc evaluates the pt (8) DVT prophylaxis: Code(s): Z29.9 - Encounter for prophylactic measures, unspecified Status: Acute Assessment and Plan: DVT prophylaxis: On heparin gtt GI prophylaxis: famotidine Additional Plan updated patient's code status: Full code critical care time spent: 34 minutes Due to a high probability of clinically significant, life threatening deterioration, the patient required my highest level of preparedness to intervene emergently and I personally spent this critical care time directly and personally managing the patient. This critical care time included obtaining a history; examining the patient; pulse oximetry; ordering and review of studies; arranging urgent treatment with development of a management plan; evaluation of patient's response to treatment; frequent reassessment; and discussions with other providers. It was exclusive of separately billable procedure
[2020-04-01 14:51] LABS: Partial Thromboplastin Time 49.6 SECONDS (22.3-36.8)
[2020-04-01] MEDS: HEPARIN SODIUM 5,000 UNITS/ML VIAL 4000 UNITS IV PUSH (16:06)
[2020-04-01 16:54] LABS: Glucose Point of Care 174 (65-105)
[2020-04-01] MEDS: HEPARIN SOD/D5W 100 UNITS/ML 25,000 UNITS/250 ML BAG 18 UNITS IV CONT (20:11)
[2020-04-01 22:59] LABS: Partial Thromboplastin Time > 200.0 SECONDS (22.3-36.8)
[2020-04-02] VITALS (28 sets, daily range): BP systolic 94–162; BP diastolic 57–96; PULSE 66–95; RESP 14–25; TEMP 36.6–38.2; O2SAT 97–100; BMI 75.5; BMI 64.7
[2020-04-02 04:41] LABS: Alveolar/Arterial O2 Gradient 165.9 mmHg; Base Excess ABG 4.4 mEq/l (+/-2.0); Carboxyhemoglobin 0.8 % THb (0-2.0); Fractional Inspired Oxygen 40 %; Methemoglobin ABG 0.2 %THb (0-1.5); Oxygen Content ABG 19.5 %vol (16.0-22.0); Oxygen Saturation ABG 95.9 % (95.0-100.0); Oxyhemoglobin 94.2 % THb (90.0-100.0); PCO2 ABG 38.5 mmHg (35.0-45.0); PO2 FiO2 Ratio Arterial Blood 1.88 %; Reduced Hemoglobin 4.8 %THb (0-5.0); Total Hemoglobin 14.7 g/dL (12.0-18.0)
[2020-04-02 04:42] LABS: Arterial Blood Gas PEEP 10 cmH2O; Arterial Blood Gas Vent Mode CMV; Arterial Blood Gas Ventilator rate 24 /MIN; Device VENTILATOR; Modified Allen's Test Pass; Site Drawn RIGHT RADIAL
[2020-04-02 04:43] LABS: Arterial Blood Gas Tidal Volume 500 ml
[2020-04-02] MEDS: CENTRAL LINE FLUSH 10 ML IV PUSH ×2 (04:55→13:57)
[2020-04-02 05:20] LABS: Basophils Percent Auto 0.4 % (0.2-1.2); Eosinophils Absolute Auto 0.3 K/mm3 (0-0.3); Eosinophils Percent Auto 3.1 % (0-4.4); Hematocrit 33.5 % (42.0-52.0); Hemoglobin 10.6 g/dL (14.0-18.0); Immature Granulocyte Absolute 0.09 K/mm3 (0.00-0.031); Lymphocytes Absolute Auto 0.82 K/mm3 (0.9-3.2); Lymphocytes Percent Auto 8.9 % (18.3-44.2); Mean Corpuscular HGB Conc 31.6 g/dl (32-36); Mean Corpuscular Hemoglobin 27.3 pg (26-34); Mean Corpuscular Volume 86.3 fl (80-100); Mean Platelet Volume 10.3 fl (7.4-10.4); Monocytes Absolute Auto 0.9 K/mm3 (0.1-0.6); Monocytes Percent Auto 9.3 % (2.6-8.5); Neutrophils Absolute Auto 7.1 K/mm3 (1.3-6.7); Neutrophils Percent Auto 77.3 % (45.5-73.1); Platelet Count Result 182 k/mm3 (150-375); Red Blood Count 3.88 M/mm3 (4.6-6.20); Red Cell Distribution Width 16.5 % (11.5-14.5); White Blood Count 9.2 K/mm3 (4.5-10.0)
[2020-04-02 05:32] LABS: Lactic Acid Reflex 1.1 mmol/L (0.7-2.1)
[2020-04-02 05:43] LABS: Alanine Aminotransferase 25 U/L (4-50); Albumin Level 3.5 g/dL (3.5-5.1); Alkaline Phosphatase 55 U/L (38-126); Anion Gap 6 mmol/L (8-16); Aspartate Amino Transferase 64 U/L (17-59); Bilirubin,Total 0.4 mg/dL (0.2-1.3); Blood Urea Nitrogen 28 mg/dL (9-20); Calcium 8.7 mg/dL (8.4-10.2); Carbon Dioxide 32 mmol/L (22-30); Chloride 99 mmol/L (98-107); Estimated CRCL calculation 74 ml/min; Estimated Glomerular Filt Rate 43; Glucose 213 mg/dL (75-110); Magnesium 1.7 mg/dL (1.6-2.3); Phosphorus 2.3 mg/dL (2.5-4.5); Potassium 3.6 mmol/L (3.4-5.0); Sodium 137 mmol/L (137-145)
[2020-04-02 05:49] LABS: CRP 20.3 mg/dL (<1.0)
[2020-04-02 06:12] LABS: INR 1.3; Prothrombin Time 15.7 Seconds (11.1-14.7)
[2020-04-02] MEDS: HEPARIN SODIUM 5,000 UNITS/ML VIAL 4000 UNITS IV PUSH ×2 (06:24→13:51)
[2020-04-02] MEDS: ASPIRIN 81 MG CHEWABLE TABLET PO (07:49)
[2020-04-02] MEDS: INSULIN ASPART (*BKC) 100 UNITS/ML SUB-Q ×2 (07:53→17:37)
[2020-04-02 08:08] LABS: Glucose Point of Care 210 (65-105)
[2020-04-02] MEDS: FAMOTIDINE 20 MG/2 ML VIAL IV PUSH ×2 (09:48→20:14)
[2020-04-02] MEDS: FUROSEMIDE INJ 40 MG/4 ML VIAL IV PUSH ×2 (09:48→20:14)
--- NOTE | 2020-04-02 11:44 | P.PNIM_ITS ---
Progress Note: A&P Assessment and Plan (1) Respiratory failure, acute: Qualifiers: Respiratory failure complication: hypoxia and hypercapnia Qualified Code(s): J96.01 - Acute respiratory failure with hypoxia; J96.02 - Acute respiratory failure with hypercapnia Code(s): J96.00 - Acute respiratory failure, unspecified whether with hypoxia or hypercapnia Status: Acute Assessment and Plan: * Likely multifactorial due to CHF, Pneumonia , obesity hypoventilation syndrome, JOE. * Critical care following (2) Pneumonia: Qualifiers: Laterality: unspecified laterality Lung location: unspecified part of lung Pneumonia type: due to unspecified organism Qualified Code(s): J18.9 - Pneumonia, unspecified organism Code(s): J18.9 - Pneumonia, unspecified organism Status: Acute Assessment and Plan: * Continue ceftriaxone and azithromycin * SARS-CoV-2 rt-PCR negative. (3) Cardiomyopathy: Qualifiers: Cardiomyopathy type: unspecified Qualified Code(s): I42.9 - Cardiomyopathy, unspecified Code(s): I42.9 - Cardiomyopathy, unspecified Status: Acute Assessment and Plan: * Echocardiogram pending. (4) Non-ST elevation [place] (NSTEMI): Code(s): I21.4 - Non-ST elevation (NSTEMI) myocardial infarction Status: Acute Assessment and Plan: * High troponin 45 cardiology following. * On a heparin drip and ASA. * Echocardiogram pending. (5) Type 2 diabetes mellitus with hyperglycemia: Qualifiers: Diabetes mellitus fdc insulin use: with fdc use Qualified Code(s): E11.65 - Type 2 diabetes mellitus with hyperglycemia; Z79.4 - terminal gauger (current) use of insulin Code(s): E11.65 - Type 2 diabetes mellitus with hyperglycemia Status: Acute Assessment and Plan: * Continue SSI (6) Aortic stenosis: Qualifiers: Cardiac valve disease etiology: etiology unspecified Qualified Code(s): I35.0 - Nonrheumatic aortic (valve) stenosis Code(s): I35.0 - Nonrheumatic aortic (valve) stenosis Status: Acute Assessment and Plan: * Severe by prior evaluation (7) Atherosclerotic heart disease of [place] coronary 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 04/02/20 11:44 Exam Const: Other: Intubated Eyes: Pupils: Equal, round and reactive pupils present Neck: Neck: supple Resp: Auscultation: rales and diminished lung sounds Cardio: Rate: regular rate Rhythm: regular rhythm GI: Auscultation: normal bowel sounds Other: Obese , soft. Neuro: Other: Intubated but following basic commands. Extrem: General: edema Objective Data Vital Signs Vital Signs: Vital Signs - 24 hr 04/01/20 11:47 04/01/20 11:53 04/01/20 12:00 Temperature 102.8 F H 102.8 F H Pulse Rate 93 89 Respiratory Rate 24 H 24 H Blood Pressure 116/69 Pulse Oximetry 98 98 04/01/20 14:00 04/01/20 14:15 04/01/20 15:19 Temperature 99.7 F H Pulse Rate 70 77 Respiratory Rate 24 H Blood Pressure 106/68 Pulse Oximetry 97 100
--- NOTE | 2020-04-02 11:44 | PM.IMPN ---
Progress Note: A&P Assessment and Plan (1) Respiratory failure, acute: Qualifiers: Respiratory failure complication: hypoxia and hypercapnia Qualified Code(s): J96.01 - Acute respiratory failure with hypoxia; J96.02 - Acute respiratory failure with hypercapnia Code(s): J96.00 - Acute respiratory failure, unspecified whether with hypoxia or hypercapnia Status: Acute Assessment and Plan: Likely multifactorial due to CHF, Pneumonia , obesity hypoventilation syndrome, JOE. Critical care following (2) Pneumonia: Qualifiers: Laterality: unspecified laterality Lung location: unspecified part of lung Pneumonia type: due to unspecified organism Qualified Code(s): J18.9 - Pneumonia, unspecified organism Code(s): J18.9 - Pneumonia, unspecified organism Status: Acute Assessment and Plan: Continue ceftriaxone and azithromycin SARS-CoV-2 rt-PCR negative. (3) Cardiomyopathy: Qualifiers: Cardiomyopathy type: unspecified Qualified Code(s): I42.9 - Cardiomyopathy, unspecified Code(s): I42.9 - Cardiomyopathy, unspecified Status: Acute Assessment and Plan: Echocardiogram pending. (4) Non-ST elevation [place] (NSTEMI): Code(s): I21.4 - Non-ST elevation (NSTEMI) myocardial infarction Status: Acute Assessment and Plan: High troponin 45 cardiology following. On a heparin drip and ASA. Echocardiogram pending. 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 insulin use: with regional intermodal truck driver use Qualified Code(s): E11.65 - Type 2 diabetes mellitus with hyperglycemia; Z79.4 - bed bug exterminator (current) use of insulin Code(s): E11.65 - Type 2 diabetes mellitus with hyperglycemia Status: Acute Assessment and Plan: Continue SSI (6) Aortic stenosis: Qualifiers: Cardiac valve disease etiology: etiology unspecified Qualified Code(s): I35.0 - Nonrheumatic aortic (valve) stenosis Code(s): I35.0 - Nonrheumatic aortic (valve) stenosis Status: Acute Assessment and Plan: Severe by prior evaluation (7) Atherosclerotic heart disease of [place] coronary artery with other forms of angina pectoris: Code(s): I25.118 - Atherosclerotic heart disease of [place] coronary artery with other forms of angina pectoris Status: Acute Subjective Date/time seen: Pt seen and examined, he is intubated but his eyes open and following basic commands. 04/02/20 11:44 Exam Const: Other: Intubated Eyes: Pupils: Equal, round and reactive pupils present Neck: Neck: supple Resp: Auscultation: rales and diminished lung sounds Cardio: Rate: regular rate Rhythm: regular rhythm GI: Auscultation: normal bowel sounds Other: Obese , soft. Neuro: Other: Intubated but following basic commands. Extrem: General: edema Objective Data Vital Signs Vital Signs: Vital Signs - 24 hr 04/01/20 11:47 04/01/20 11:53 04/01/20 12:00 Temperature 102.8 F H 102.8 F H Pulse Rate 93 89 Respiratory Rate 24 H 24 H Blood Pressure 116/69 Pulse Oximetry 98 98 04/01/20 14:00 04/01/20 14:15 04/01/20 15:19 Temperature 99.7 F H Pulse Rate 70 77 Respiratory Rate 24 H Blood Pressure 106/68 Pulse Oximetry 97 100 04/01/20 16:00 04/01/20 17:24 04/01/20 18:00 Temperature 99.4 F 99.5 F Pulse Rate 71 79 69 Respiratory Rate 24 H 24 H Blood Pressure 92/50 L 94/44 L Pulse Oximetry 98 98 98 04/01/20 18:56 04/01/20 20:00 04/01/20 20:30 Temperature 99.6 F Pulse Rate 72 69 73 Respiratory Rate 24 H 24 H Blood Pressure 103/54 L Pulse Oximetry 98 97 04/01/20 22:00 04/01/20 23:28 04/02/20 00:00 Temperature 99.9 F H 99.9 F H Pulse Rate 73 73 67 Respiratory Rate 24 H 24 H Blood Pressure 99/54 L 94/57 L Pulse Oximetry 98 100 100 04/02/20 02:00 04/02/20 02:33 04/02/20 04:00 Temperature Pulse Rate 76 74 75 Respiratory
--- NOTE | 2020-04-02 12:03 | PM.PNCARD ---
Progress Note: A&P Additional Plan patient has acute pulmonary edema because of non ST elevation NE in the setting of significant aortic valve stenosis. Respiratory status is improving with diuresis he remains on the ventilator. Aggressive treatment would involve right and left heart catheterization followed by potential coronary revascularization and aortic valve replacement. As catheterization cannot be done at this hospital we would probably consider transferring him to another facility if we can find a grinding and polishing laborer with a did table that will accommodate this weight. Ideally this would occur after he is diuresed, improved off the ventilator. Leo Ribeiro MD [facility] Subjective Date/time seen: Date of service:04/02/20 12:03 Interval history: Sedated and intubated. Follow-up visit in this 69-year-old man known to have coronary disease, remote history of LAD stenting and interval development of significant aortic valve stenosis. Patient hospitalized on Thursday with acute pulmonary edema After some ischemic chest pain from what the tells me. Troponin elevated significantly up to 45. patient is intubated but now is alert and less sedated today. He weighs 500 lb which is over the weight for our cardiac catheterization lab in this hospital. Concept of follow-up catheterization right left heart catheterization with coronary and aortic valve stenosis treatment were discussed by my partner who saw him over the weekend. Catheterization is not an option at this hospital according to the grinding and polishing laborerphotographic laboratory supervisor with the weight limit being 425 lb Exam Const: General: comfortable Other: patient remarkably comfortable on the ventilator he is alert and offers no complaints having no further chest pain HENMT: Mouth: Yes moist mucous membranes Eyes: Sclera: sclerae normal Pupils: Equal, round and reactive pupils present Neck: Neck: supple Thyroid: thyroid normal Other: JVD cannot be assessed given his body habitus Resp: Other: central rhonchi noted otherwise breath sounds very distant because of his obesity. Cardio: Rate: regular rate Rhythm: regular rhythm Other: High-pitched late peaking crescendo decrescendo murmur audible in the precordium. No diastolic murmur GI: Auscultation: normal bowel sounds Skin: General skin exam: normal color Neuro: Cognition (Neuro): normal cognition Extrem: General: normal to inspection Objective Data Vital Signs Vital Signs: Vital Signs - 24 hr 04/01/20 14:00 04/01/20 14:15 04/01/20 15:19 Temperature 37.6 C H Pulse Rate 70 77 Respiratory Rate 24 H Blood Pressure 106/68 Pulse Oximetry 97 100 04/01/20 16:00 04/01/20 17:24 04/01/20 18:00 Temperature 37.4 C 37.5 C Pulse Rate 71 79 69 Respiratory Rate 24 H 24 H Blood Pressure 92/50 L 94/44 L Pulse Oximetry 98 98 98 04/01/20 18:56 04/01/20 20:00 04/01/20 20:30 Temperature 37.6 C Pulse Rate 72 69 73 Respiratory Rate 24 H 24 H Blood Pressure 103/54 L Pulse Oximetry 98 97 04/01/20 22:00 04/01/20 23:28 04/02/20 00:00 Temperature 37.7 C H 37.7 C H Pulse Rate 73 73 67 Respiratory Rate 24 H 24 H Blood Pressure 99/54 L 94/57 L Pulse Oximetry 98 100 100 04/02/20 02:00 04/02/20 02:33 04/02/20 04:00 Temperature Pulse Rate 76 74 75 Respiratory Rate 19 Blood Pressure 130/78 Pulse Oximetry 100 100 04/02/20 04:30 04/02/20 04:47 04/02/20 04:59 Temperature Pulse Rate 86 94 89 Respiratory Rate 24 H 21 H Blood Pressure 147/69 H Pulse Oximetry 98 98 04/02/20 06:00 04/02/20 06:28 04/02/20 06:31 Temperature 38.2 C H 38.2 C H Pulse Rate 91 Respiratory Rate 20 Blood Pressure 143/62 H Pulse Oximetry 99 04/02/20 07:00 04/02/20 07:01 04/02/20 07:30 Temperature 37.3 C Pulse Rate 75 79 Respiratory Rate 24 H Blood Pressure 141/62 H Pulse Oximetry 04/02/20 08:00 04/02/20 08:55 04/02/20 10:00 Temperature 37.3 C Pulse Rate 76 72 66 Respirat
--- NOTE | 2020-04-02 12:31 | PDONCCN ---
HPI - Date of Consult Date/Time: 04/02/20 12:32 Requesting Physician: Ca Goodwin DO Primary Care Provider: Leo Doss MD - Consult Narrative Narrative: Pascual Kowalski is a 69 year old male who presented to ER in acute respiratory distress with worsening renal insufficiency, and elevated troponin peaking at 45. COVID negative. 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 He was better briefly then acutely became SOB with associated BLE edema. He has been intubated since admission and has been diuresed. He can respond nonverbally. He denies CP and is resting comfortably. Of note, he was last seen in the office by Dr. Oliveira in January 2020 with stable Rt inguinal adenopathy on CT scan. Chart reviewed and provided history. Review of Systems - Review of Systems All systems reviewed & are unremarkable except as noted in HPI and bel, other ( present in room) - Constitutional Reports night sweats (non-drenching), Denies chills, Denies fever(s) - Cardiovascular Reports chest pain (prior to admission), Reports foot swelling, Reports leg swelling - Respiratory Reports cough (dry, throat clearing ), Reports dyspnea - Gastrointestinal Denies abdominal pain, Denies nausea, Denies vomiting - Neurologic Reports hearing normal [facility] Medical History: Medical History (Last Reviewed 03/31/20 @ 08:51 by Morgan Ballard MD) Acute respiratory failure Hospitalization June 06 through July 20, 2019 intubated 07/07/2019 through 07/14/2019 due to sepsis with septic shock, fluid overload, cellulitis with abscess of the left buttock Aortic stenosis severe on echocardiogram July 2019 Arthritis CAD (coronary artery disease) of artery bypass graft With history of stents x4. Dr. Ribeiro Cataract CHF (congestive heart failure) Echocardiogram 07/2019: Mildly reduced left ventricular systolic function EF of 40-45%, moderately increased left ventricular wall thickness, grade 1 diastolic dysfunction, decreased right ventricular systolic function, right ventricular chamber mildly enlarged, left atrial straight per moderately enlarged, severe aortic valve stenosis with valve area of 0.62, severe aortic valve calcification, mild tricuspid regurgitation, moderate pulmonary hypertension with RVSP of 52 Depression Diabetes Follicular low grade B-cell lymphoma GERD (gastroesophageal reflux disease) Hypercholesterolemia Hypertension Mitral valve prolapse Morbid (severe) obesity due to excess calories Morbid obesity with BMI of 60.0-69.9, adult Non-Hodgkin lymphoma He is a patient of Dr. Oliveira. Peripheral neuropathy Pulmonary hypertension Moderate on echocardiogram from 2019 Restless legs syndrome Sleep apnea Patient does not use a CPAP at nighttime. Unspecified background retinopathy Surgical History: Surgical History (Last Reviewed 03/31/20 @ 08:51 by Morgan Ballard MD) H/O arthroscopic knee surgery H/O cardiac catheterization H/O inguinal hernia repair History of appendectomy Hx of tonsillectomy Family History: Family History (Last Reviewed 03/31/20 @ 08:51 by Morgan Ballard MD) Father Heart disease Diabetes mellitus Lung disease CHF (congestive heart failure) Atrial fibrillation Mother Breast cancer Dementia Son Aneurysm, aorta, abdominal, ruptured Acute myocardial infarction Other Family history of obesity - Social History Social History: Social History (Last Reviewed 03/31/20 @ 08:51 by Morgan Ballard MD) Gender Identity: Gender identity (if verbalized by the patient): Male Sexual Orientation: Sexual Orientation (if Verbalized by the Patient): Straight or Heterosexual Alcohol Use: Alcohol intake: former Substance Use: Substance use: never Others: Spiritual care concerns: No Agree to blood products: Yes Smoking Status: Smoking status: Never smoker Meds Home Medications Medica
[2020-04-02 13:23] LABS: Partial Thromboplastin Time 61.3 SECONDS (22.3-36.8)
[2020-04-02] MEDS: HEPARIN SOD/D5W 100 UNITS/ML 25,000 UNITS/250 ML BAG 20 UNITS IV CONT (13:51)
--- NOTE | 2020-04-02 15:11 | WPDINTPN ---
Progress Note: A&P Assessment and Plan (1) Respiratory failure, acute: Qualifiers: Respiratory failure complication: hypoxia and hypercapnia Qualified Code(s): J96.01 - Acute respiratory failure with hypoxia; J96.02 - Acute respiratory failure with hypercapnia Code(s): J96.00 - Acute respiratory failure, unspecified whether with hypoxia or hypercapnia Status: Acute Assessment and Plan: presented with SOB, minimal responsiveness. Intubated in ER on 03/30/2020 - likely due to CHF, Pneumonia, possible covid-19 - started on Azithromycin and Ceftriaxone - chest x-ray and ABGs reviewed, ventilator adjusted, currently on 40% FiO2 and peep of 10 -sedated with fentanyl and versed, maintain RASS of 0 to -2 - continue diuresis (2) Non-ST elevation [place] (NSTEMI): Code(s): I21.4 - Non-ST elevation (NSTEMI) myocardial infarction Status: Acute Assessment and Plan: NSTEMI with increased troponin cardiology following, pt with known CAD - continue Heparin gtt, ASA - recheck Echo to assess LV function and wall motion - appreciate Heme-Onc evaluation and recommendations - cardiology considering transferring patient to another facility for cardiac catheterization to accommodate his weight (3) Pneumonia: Qualifiers: Laterality: unspecified laterality Lung location: unspecified part of lung Pneumonia type: due to unspecified organism Qualified Code(s): J18.9 - Pneumonia, unspecified organism Code(s): J18.9 - Pneumonia, unspecified organism Status: Acute Assessment and Plan: as above (4) Suspected COVID-19 virus infection: Code(s): R68.89 - Other general symptoms and signs Status: Acute Assessment and Plan: SARs-CoV-2 PCR NEGATIVE - discontinue airborne, droplet and contact isolation/precaution (5) Acute on chronic renal failure: Qualifiers: Acute renal failure type: unspecified Chronic kidney disease stage: stage 3 (moderate) Qualified Code(s): N17.9 - Acute kidney failure, unspecified; N18.3 - Chronic kidney disease, stage 3 (moderate) Code(s): N17.9 - Acute kidney failure, unspecified; N18.9 - Chronic kidney disease, unspecified Status: Acute Assessment and Plan: DAWNA on chronic renal failure, likely due CHF, volume overload, DM, hypoperfusion. - creatinine improving with good UO in response to diuretics - continue to monitor UO, renal function and electrolytes (6) Morbid obesity with BMI of 60.0-69.9, adult: Code(s): E66.01 - Morbid (severe) obesity due to excess calories; Z68.44 - Body mass index (BMI) 60.0-69.9, adult Status: Chronic Assessment and Plan: chronic obesity (7) Aortic stenosis: Qualifiers: Cardiac valve disease etiology: etiology unspecified Qualified Code(s): I35.0 - Nonrheumatic aortic (valve) stenosis Code(s): I35.0 - Nonrheumatic aortic (valve) stenosis Status: Acute Assessment and Plan: echo report pending (8) DVT prophylaxis: Code(s): Z29.9 - Encounter for prophylactic measures, unspecified Status: Acute Assessment and Plan: DVT prophylaxis: On heparin gtt GI prophylaxis: famotidine Additional Plan updated patient's code status: Full code critical care time spent: 33 minutes Due to a high probability of clinically significant, life threatening deterioration, the patient required my highest level of preparedness to intervene emergently and I personally spent this critical care time directly and personally managing the patient. This critical care time included obtaining a history; examining the patient; pulse oximetry; ordering and review of studies; arranging urgent treatment with development of a management plan; evaluation of patient's response to treatment; frequent reassessment; and discussions with other providers. It was exclusive of separately billable procedures and treating other patients
[2020-04-02 17:18] LABS: Glucose Point of Care 191 (65-105)
[2020-04-02 17:24] LABS: Glucose Point of Care 219 (65-105)
--- NOTE | 2020-04-02 21:23 | PC.NURSE ---
pt transfered to [facility] via [facility] on vent with fentanyl and versed for sedation and heparin drip pt in stable condition
--- NOTE | 2020-04-30 12:01 | PM.TDS ---
Transfer Discharge Sum: Prov Provider Date of admission: 03/31/20 09:28 Primary care physician: Leo Doss MD Admitting clinician: Ca Goodwin DO Consults: 03/31/20 Consult to Physician Routine Comment: Consulting Provider: Claudine Laguerre yardage caller/MD group to consult: heart care group Reason for consultation: flash pulmonary edema, non STEMI Has provider been notified: Yes 03/31/20 00:41 Consult to Physician Routine Comment: Consulting Provider: Claudine Laguerre yardage caller/MD group to consult: Quintin Reason for consultation: chf, chest pain Has provider been notified: Yes Consult to Physician Routine Comment: Consulting Provider: Martin Kaur yardage caller/MD group to consult: Vincent Reason for consultation: respiratory failure, chf, chest pain Has provider been notified: Yes 04/01/20 09:42 Consult to Physician Routine Comment: Consulting Provider: Monty Oliveira yardage caller/MD group to consult: Dr. OLIVEIRA - Heme/Onc Reason for consultation: non hodgkin's lymphoma, Has provider been notified: Yes DS: Admitting Diagnosis Admitting Diagnosis Admitting Diagnosis: CHF, Respiratory failure, Chest Pain, non ST-elevation IN Transfer Discharge Sum: Med Medications Active and Home Medications: Home Medications aspirin 81 mg PO DAILY 05/31/19 [History Confirmed 03/31/20] isosorbide mononitrate 30 mg PO DAILY 05/31/19 [History Confirmed 03/31/20] nitroglycerin 0.4 mg SUBLINGUAL Q5MIN PRN 05/31/19 [History Confirmed 03/31/20] prasugrel 10 mg PO DAILY 05/31/19 [History Confirmed 03/31/20] omega 4-idh-goy-fish oil [Fish Oil] 1 cap PO BID 07/07/19 [History Confirmed 03/31/20] simvastatin 20 mg tablet 20 mg PO HS #90 tablet 08/11/19 [Rx Confirmed 03/31/20] furosemide 40 mg tablet 40 mg PO DAILY #90 tablet 08/19/19 [Rx Confirmed 03/31/20] potassium chloride 20 mEq tablet,extended release 20 meq PO DAILY #90 tablet 08/19/19 [Rx Confirmed 03/31/20] pen needle, diabetic 32 gauge x #400 each 08/31/19 [Rx Confirmed 03/31/20] sitagliptin 50 mg-metformin ER 1,000 mg tablet,extended release 24h mp 1 tablet PO BID tablet 10/03/19 [History Confirmed 03/31/20] trazodone 100 mg tablet 100 mg PO HS #90 tablet 12/07/19 [Rx Confirmed 03/31/20] diphenoxylate-atropine 1 tablet PO QID PRN 12/10/19 [History Confirmed 03/31/20] meclizine 25 mg PO TID PRN 12/10/19 [History Confirmed 03/31/20] ondansetron HCl 4 mg PO Q8H PRN 12/10/19 [History Confirmed 03/31/20] liraglutide 0.6 mg/0.1 mL (18 mg/3 mL) subcutaneous pen injector 1.8 mg SUBCUT DAILY #27 ml 12/20/19 [Rx Confirmed 03/31/20] fluoxetine 20 mg capsule 20 mg PO DAILY #90 cap 01/03/20 [Rx Confirmed 03/31/20] ergocalciferol (vitamin D2) 1,250 mcg (50,000 unit) capsule 100,000 unit PO WEEKLY #13 cap 01/24/20 [Rx Confirmed 03/31/20] metoprolol succinate 50 mg tablet,extended release 24 hr 50 mg PO BID #180 tablet 01/24/20 [Rx Confirmed 03/31/20] hydrocodone 5 mg-acetaminophen 325 mg tablet 1 tablet PO Q6H PRN #60 tablet 03/28/20 [Rx Confirmed 03/31/20] diphenoxylate-atropine [Lomotil] 1 tablet PO QID PRN 03/31/20 [History Confirmed 03/31/20] gabapentin 300 mg PO BID 03/31/20 [History Confirmed 03/31/20] insulin lispro [Humalog KwikPen Insulin] 8 unit SUBCUT BID 03/31/20 [History Confirmed 03/31/20] pramipexole 1 mg tablet 1 mg PO HS #90 tablet 04/06/20 [Rx] Transfer Discharge Sum: Hosp Hospital Course Hospital course: Pascual Kowalski is a 69 year old male with a known history of coronary artery disease and aortic valve disease. The patient previously underwent interventional revascularization of the LAD in the past. He presented to the hospital with acute shortness of breath required intubation and emergent mechanical ventilation. The patient following this event had a significant rise in his troponin level up to 45. The patient also was found to have significant aortic valve stenosis. Catheterization was recommended to investigate these issues but could not b
== END 2020-04-02 21:25 | disposition short-term general hospital (02) | DRG 280 ==
LOC: ANHED 03-31 00:14 → ANHICU 03-31 00:46
PROVIDERS: Internal Medicine; Admitting Provider Internal Medicine; Emergency Provider Emergency Medicine; PCP Family Medicine; Visit Provider Specialist
DX: I21.4 Non-ST elevation (NSTEMI) myocardial infarction (principal); J18.9 Pneumonia, unspecified organism; J96.01 Acute respiratory failure with hypoxia; J96.02 Acute respiratory failure with hypercapnia; I50.43 Acute on chronic combined systolic (congestive) and diastolic (congestive) heart failure; I13.0 Hypertensive heart and chronic kidney disease with heart failure and stage 1 through stage 4 chronic kidney disease, or unspecified chronic kidney disease; N17.9 Acute kidney failure, unspecified; Z68.44 Body mass index [BMI] 60.0-69.9, adult; I42.9 Cardiomyopathy, unspecified; Z20.828 Contact with and (suspected) exposure to other viral communicable diseases; I35.0 Nonrheumatic aortic (valve) stenosis; N18.3 Chronic kidney disease, stage 3 (moderate); E66.01 Morbid (severe) obesity due to excess calories; K21.9 Gastro-esophageal reflux disease without esophagitis; M19.90 Unspecified osteoarthritis, unspecified site; G25.81 Restless legs syndrome; H35.00 Unspecified background retinopathy; G47.30 Sleep apnea, unspecified; D72.829 Elevated white blood cell count, unspecified; E11.42 Type 2 diabetes mellitus with diabetic polyneuropathy; E11.22 Type 2 diabetes mellitus with diabetic chronic kidney disease; I25.118 Atherosclerotic heart disease of native coronary artery with other forms of angina pectoris; G47.33 Obstructive sleep apnea (adult) (pediatric); E11.65 Type 2 diabetes mellitus with hyperglycemia; I27.20 Pulmonary hypertension, unspecified; Z91.19 Patient's noncompliance with other medical treatment and regimen; Z85.72 Personal history of non-Hodgkin lymphomas; Z95.5 Presence of coronary angioplasty implant and graft; Z79.4 Long term (current) use of insulin
CPT/HCPCS: 31500; 36415; 36600; 51702; 71045; 80053; 82375; 82805; 83050; 83605; 83735; 83880; 84100; 84484; 85025; 85610; 85730; 86140; 87040; 87635; 93306; 94003; 96365; 96366; 96367; 96375; 96376; 99291; A9270; C9803; G0378; J0131; J0330; J0456; J0696; J1644; J1815; J1940; J2250; J3010; J7030; U0003

== ENCOUNTER 2020-07-11 02:22 | Inpatient (IN) | payer MEDICARE, MEDICAID, SELFPAY ==
[2020-07-11] VITALS (47 sets, daily range): BP systolic 105–159; BP diastolic 59–92; PULSE 62–106; RESP 14–33; TEMP 35.7–36.8; O2SAT 92–100; BMI 57.6
--- NOTE | ~2020-07-11 | XR_ITS ---
EXAMINATION: XR chest 1V portable EXAM DATE: 07/11/2020 03:21 INDICATION: Chest pain, shortness of breath. TECHNIQUE: Portable AP frontal chest x-ray was obtained. Comparison is made to prior examination from 04/02/2020. FINDINGS: There is a right-sided portacatheter. There is mild cardiomegaly and pulmonary vascular con gestion. Bilateral perihilar predominant ill-defined edema or pneumonia, clinical correlation. No pne umothorax or pleural effusion. There are mild bony degenerative changes. IMPRESSION: 1. Cardiomegaly, congestion. 2. Ill-defined bilateral perihilar edema or pneumonia. Reviewed, dictated and finalized at location A. DENTIAL TREATMENT STAFF
--- NOTE | ~2020-07-11 | CT_ITS ---
EXAMINATION: CT chest wo con EXAM DATE: 07/11/2020 03:34 INDICATION: Shortness of breath. TECHNIQUE: Spiral CT of the chest without contrast. Axial, coronal and sagittal images were reviewe d. Coronal maximum intensity pixel images of chest reviewed. The dose-length product (DLP) for this examination was 957.11 mGy-cm. The exposure was tailored according to patient size (auto mA exposur e control), and iterative reconstruction (ASIR) was used as additional dose reduction technique. Comp arison is made to prior examination from 01/18/2020. FINDINGS: There is a right portacatheter. Small bilateral pleural effusions with adjacent airspace d isease, partly atelectasis but could also have superimposed infection. There are also some faint grou ndglass opacities and perihilar region probably edema or infection. Tracheobronchial tree is patent. There is no mediastinal, hilar or axillary lymphadenopathy. There is no pneumothorax. Heart no rmal in size. Upper abdomen is unremarkable. There is thoracic spondylosis without osteoblastic o r osteolytic lesions identified. IMPRESSION: 1. Bibasilar patchy atelectasis and possibly pneumonia. 2. Perihilar groundglass opacities, edema or infection. 3. Small pleural effusions. Reviewed, dictated and finalized at location A. LLIGENCE CONSULTANT
--- NOTE | 2020-07-11 02:37 | ECG_ITS ---
Measurements Intervals [place] Rate: 107 P: 52 FL: 160 QRS: -21 QRSD: 115 T: 111 QT: 358 QTc: 479 Interpretive Statements SINUS TACHYCARDIA INTRAVENTRICULAR CONDUCTION DELAY ANTEROSEPTAL INFARCT, AGE INDETERMINATE ST-T WAVE ABNORMALITY IN HIGH LATERAL LEADS- CONSIDER ISCHEMIA ABNORMAL ECG Electronically Signed On 07-11-2020 7:08:25 PATIENT NAVIGATOR by Hema Emery D.O.
--- NOTE | 2020-07-11 02:46 | ED.SOB ---
HPI - SOB/Dyspnea General Chief Complaint: Shortness of Breath/Dyspnea Stated Complaint: SOB Time Seen by Provider: 07/11/20 02:31 Source: patient Mode of arrival: EMS Limitations: no limitations History of Present Illness HPI Narrative: Patient is a 69-year-old male complaining of shortness of breath accompanied by chest tightness that started today. Patient currently denies any chest tightness or pain. Patient denies any any cough, fever, abdominal pain or distention, or any increased lower extremity swelling. Patient has a history of CHF and coronary artery disease. Patient is a poor historian. Related Data Home Medications Medication Instructions Recorded Confirmed aspirin 81 mg PO DAILY 05/31/19 06/21/20 nitroglycerin 0.4 mg SUBLINGUAL Q5MIN PRN 05/31/19 06/21/20 omega 4-ksd-dfa-fish oil [Fish Oil] 1 cap PO BID 07/07/19 06/21/20 ondansetron HCl 4 mg PO Q8H PRN 12/10/19 06/21/20 gabapentin 300 mg PO BID 03/31/20 06/21/20 diphenoxylate-atropine 2.5 1 tablet PO QID PRN 05/03/20 06/21/20 mg-0.025 mg tablet furosemide 40 mg tablet 40 mg PO DAILY PRN tablet 05/03/20 06/21/20 insulin lispro 100 unit/mL 8 unit SUBCUT BID 05/03/20 06/21/20 subcutaneous pen baclofen 10 mg tablet 10 mg PO DAILY 05/04/20 06/21/20 Allergies Allergy/AdvReac Type Severity Reaction Status Date / Time No Known Allergies Allergy Unverified 07/11/20 02:33 Review of Systems Review of Systems: All systems reviewed & are unremarkable except as noted in HPI and below Constitutional: Constitutional: Denies body ache(s), Denies chills, Denies excessive sweating, Denies fatigue, Denies fever(s), Denies headache(s), Denies lethargy, Denies malaise, Denies weakness and Denies weight loss Eyes: Eyes: Denies blurry vision, Denies change in vision and Denies loss of vision ENT: Denies dizziness, Denies ear discharge, Denies headache(s), Denies lip swelling, Denies epistaxis, Denies nasal congestion, Denies neck pain, Denies throat swelling and Denies tongue swelling Cardiovascular: Cardiovascular: Denies diaphoresis, Denies rapid heart rate, Denies edema, Denies irregular heart rhythm, Denies lightheadedness and Denies palpitations Respiratory: Respiratory: Denies chest congestion, Denies cough and Denies hemoptysis Gastrointestinal: Gastrointestinal: Denies abdominal pain, Denies melena, Denies hematochezia, Denies diarrhea, Denies nausea, Denies vomiting and Denies hematemesis Musculoskeletal: Musculoskeletal: Denies abnormal gait, Denies deformity, Denies joint swelling, Denies limited range of motion, Denies neck pain and Denies numbness Neurologic: Denies Abnormal speech present, Denies abnormal gait, Denies confusion, Denies dizziness, Denies headache(s), Denies focal weakness, Denies loss of vision, Denies numbness, Denies Other visual disturbances, Denies Sensory deficit (Neuro) and Denies weakness Psychiatric: Psychiatric: Denies confusion, Denies depression, Denies auditory hallucinations, Denies homicidal ideation and Denies suicidal ideation Endocrine: Endocrine: Denies cold intolerance, Denies excessive sweating, Denies fatigue, Denies heat intolerance and Denies palpitations Hematologic/Lymphatic: Hematologic/Lymphatic: Denies easy bleeding and Denies easy bruising Allergic/Immunologic: Allergic/Immunologic: Denies lip swelling, Denies throat swelling and Denies tongue swelling PMFSH Past Medical History Medical History (Updated 07/11/20 @ 04:39 by Mejia Santamaria MD) Acute respiratory failure Hospitalization June 06 through July 20, 2019 intubated 07/07/2019 through 07/14/2019 due to sepsis with septic shock, fluid overload, cellulitis with abscess of the left buttock Aortic stenosis severe on echocardiogram July 2019 Arthritis CAD (coronary artery disease) of artery bypass graft With history of stents x4. Dr. Ribeiro Cataract CHF (congestive heart failure) Echocardiogram 07/2019: Mildly reduced left ventricular s
[2020-07-11] MEDS: FUROSEMIDE INJ 40 MG/4 ML VIAL IV PUSH ×2 (02:55→18:41)
[2020-07-11 02:56] LABS: Basophils Absolute Auto 0.1 K/mm3 (0.0-0.1); Basophils Percent Auto 0.6 % (0.2-1.2); Eosinophils Absolute Auto 0.2 K/mm3 (0-0.3); Eosinophils Percent Auto 1.2 % (0-4.4); Hemoglobin 11.4 g/dL (14.0-18.0); Immature Granulocyte Absolute 0.24 K/mm3 (0.00-0.031); Immature Granulocyte Percent A 1.6 % (0-0.5); Lymphocytes Absolute Auto 0.56 K/mm3 (0.9-3.2); Lymphocytes Percent Auto 3.7 % (18.3-44.2); Mean Corpuscular HGB Conc 31.7 g/dl (32-36); Mean Corpuscular Hemoglobin 27.8 pg (26-34); Mean Corpuscular Volume 87.8 fl (80-100); Mean Platelet Volume 10.4 fl (7.4-10.4); Monocytes Absolute Auto 0.6 K/mm3 (0.1-0.6); Monocytes Percent Auto 4.2 % (2.6-8.5); Neutrophils Absolute Auto 13.6 K/mm3 (1.3-6.7); Neutrophils Percent Auto 88.7 % (45.5-73.1); Platelet Count Result 249 k/mm3 (150-375); Red Cell Distribution Width 15.9 % (11.5-14.5); White Blood Count 15.3 K/mm3 (4.5-10.0)
[2020-07-11] MEDS: IPRATROPIUM BR 0.02% INH SOLN 0.5 MG/2.5 ML VIAL INHALATION (03:01)
[2020-07-11] MEDS: ALBUTEROL SULFATE NEB 2.5 MG/0.5 ML INH 5 MG INHALATION (03:01)
[2020-07-11 03:07] LABS: Prothrombin Time 13.7 Seconds (11.1-14.7)
[2020-07-11 03:08] LABS: Partial Thromboplastin Time 35.4 SECONDS (22.3-36.8)
[2020-07-11 03:10] LABS: D Dimer 0.78 ug/mL (<0.48)
[2020-07-11 03:11] LABS: Alanine Aminotransferase 15 U/L (4-50); Alkaline Phosphatase 59 U/L (38-126); Anion Gap 10 mmol/L (8-16); Aspartate Amino Transferase 21 U/L (17-59); Bilirubin,Total 0.6 mg/dL (0.2-1.3); Blood Urea Nitrogen 24 mg/dL (9-20); Carbon Dioxide 26 mmol/L (22-30); Chloride 100 mmol/L (98-107); Estimated CRCL calculation 87 ml/min; Estimated Glomerular Filt Rate > 60; Glucose 201 mg/dL (75-110); Lactic Acid Reflex 1.9 mmol/L (0.7-2.1); Potassium 4.4 mmol/L (3.4-5.0); Sodium 136 mmol/L (137-145)
[2020-07-11 03:18] LABS: NT Pro B Type Natriuretic Pept 2250 PG/ML (5-100)
[2020-07-11 03:52] LABS: Troponin I 0.168 ng/mL (0.000-0.034)
[2020-07-11 04:19] LABS: Alveolar/Arterial O2 Gradient 80.3 mmHg; Base Excess ABG -2.4 mEq/l (+/-2.0); Carboxyhemoglobin 0.6 % THb (0-2.0); Fractional Inspired Oxygen 32 %; HCO3 ABG 25.5 mEq/l (22.0-26.0); Methemoglobin ABG 0.3 %THb (0-1.5); Oxygen Saturation ABG 93.7 % (95.0-100.0); PCO2 ABG 58.4 mmHg (35.0-45.0); PO2 ABG 79.5 mmHg (80.0-100.0); PO2 FiO2 Ratio Arterial Blood 2.48 %; Reduced Hemoglobin 6.1 %THb (0-5.0); Total Hemoglobin 12.2 g/dL (12.0-18.0)
[2020-07-11 04:21] LABS: Device NASAL CANNULA; Modified Allen's Test Pass; Site Drawn LEFT RADIAL; pH ABG 7.258 (7.350-7.450)
[2020-07-11 06:25] LABS: Troponin I 0.233 ng/mL (0.000-0.034)
--- NOTE | 2020-07-11 06:59 | PC.NURSE ---
REPORT GIVEN TO IVETTE RN IN IMU. ROOM IS CURRENTLY NOT CLEAN. IMU TO CALL ED WHEN BED IS CLEAN AND READY.
--- NOTE | 2020-07-11 07:05 | PC.NURSE ---
report received from Lena Jasso. pt sleeping in darkened room. no distress noted.
--- NOTE | 2020-07-11 08:45 | PC.NURSE ---
no change it pt condition. waiting room avaibility in imu.
--- NOTE | 2020-07-11 09:59 | ADMGEN ---
This patient, Pascual Kowalski, was admitted to IMU Room 214-01 at 0918 on 07/11/2020. Patient/family oriented to hospital policies and general routines including ID bracelet, bed and alarms, visiting hours, pain management, procedures, bathroom and other care routines, personal items, smoking policy, room service/diet, and visiting hours. Information on how to activate the Rapid Response Team has been discussed. Patient/Family are encouraged to report perceived risks to care and to ask questions if they do not understand what they are told or what they should do.
[2020-07-11 12:51] LABS: Glucose Point of Care 204 (65-105)
[2020-07-11 13:30] LABS: SARS-CoV-2 RNA PCR Negative
[2020-07-11 15:31] LABS: Glucose Point of Care 205 (65-105)
--- NOTE | 2020-07-11 16:43 | PM.CNCAR ---
Assessment and Plan Assessment and plan (1) CHF exacerbation: Qualifiers: Heart failure type: unspecified Qualified Code(s): I50.9 - Heart failure, unspecified Code(s): I50.9 - Heart failure, unspecified Status: Acute Assessment and Plan: Acute on chronic exacerbation of heart failure with preserved ejection fraction EF 50-55%. Improvement diuresis and BiPAP. Elevated BNP, minimal troponin elevation not secondary to acute coronary syndrome and/or plaque rupture. Severe aortic stenosis, morbid obesity and chronic respiratory failure complicating clinical status. Patient claims compliance with medications yet was on only 20 mg Lasix at home. Caution with hypotension and or significant intravascular volume depletion given severe symptomatic aortic stenosis. Monitor BP, volume status, input and output, daily weight very closely. Follow electrolytes and replete as warranted. Stable thus far. (2) Severe aortic stenosis: Code(s): I35.0 - Nonrheumatic aortic (valve) stenosis Status: Acute Assessment and Plan: Patient process of TAVR workup initially [facility]. However, given current pandemic latest per TAVR coordinator is anticipated TAVR to be performed at [place]. He has yet to obtain CT TAVR protocol at [place] preoperatively. (3) Elevated troponin: Code(s): R79.89 - Other specified abnormal findings of blood chemistry Status: Chronic Assessment and Plan: Minimal elevation not secondary to acute coronary syndrome, type 2 infarct in setting of CHF, severe , underlying CAD and hypoxic respiratory failure. (4) CAD (coronary artery disease) of artery bypass graft: Code(s): I25.810 - Atherosclerosis of coronary artery bypass graft(s) without angina pectoris Status: Acute Assessment and Plan: As above. Continue aspirin, statin, metoprolol, Brilinta. (5) Cardiomyopathy: Qualifiers: Cardiomyopathy type: unspecified Qualified Code(s): I42.9 - Cardiomyopathy, unspecified Code(s): I42.9 - Cardiomyopathy, unspecified Status: Acute Assessment and Plan: Mild LV dysfunction EF 50-55% by coronary angiography 04/06/2028 [facility]. Recommend NADEEM-inhibitor or ARB given LV dysfunction as BP and renal function allow. (6) Morbid obesity with body mass index (BMI) of 50.0 to 59.9 in adult: Code(s): E66.01 - Morbid (severe) obesity due to excess calories; Z68.43 - Body mass index [BMI] 50.0-59.9, adult Status: Acute Assessment and Plan: Remains a complicating issue. (7) JOE (obstructive sleep apnea): Code(s): G47.33 - Obstructive sleep apnea (adult) (pediatric) Status: Acute Assessment and Plan: Continue BiPAP. (8) Type 2 diabetes mellitus with hyperglycemia: Qualifiers: Diabetes mellitus long term care administrator insulin use: with long term care administrator use Qualified Code(s): E11.65 - Type 2 diabetes mellitus with hyperglycemia; Z79.4 - intermediate frame tender (current) use of insulin Code(s): E11.65 - Type 2 diabetes mellitus with hyperglycemia Status: Acute Assessment and Plan: Management per primary service. History of Present Illness History of Present Illness Consult date/time: Date of service: 07/11/20 16:43 Cardiology consultation at the request of Dr. Tellez at [facility] service for our opinion regarding CHF and aortic stenosis. Requesting physician: Avery Tellez MD Consult reason: congestive heart failure Reason For Visit: Acute Respiratory Failure/CHF Exacerbation Narrative: Patient is a very pleasant yet complicated morbidly obese gentleman followed by Dr. Leo Ribeiro as an outpatient with history of, pulmonary hypertension, severe aortic stenosis aortic valve index 0.4 and SURINDER 1.1 cm2, CAD with history of several previously placed stents prior PCI to LAD and RCA most recently [facility]
--- NOTE | 2020-07-11 18:34 | PM.IMHP ---
H&P: HPI History of Present Illness Date/Time: 07/11/20 18:34 Chief complaint: Acute Respiratory Failure/CHF Exacerbation Narrative: Pascual Kowalski is a 69 year old male patient is morbidly obese with history of coronary artery disease recently patient was transferred to [facility] and had a cardiac catheterization and stents were placed, patient also has history of severe aortic stenosis pending surgical consultation, patient also has history COPD, obstructive sleep apnea on BiPAP currently, patient presented emergency department with shortness of breath most likely multifactorial secondary to exacerbation of CHF as well as COPD, hyperventilation secondary to morbid obesity, patient is being being diuresed with IV Lasix, patient is on BiPAP, will continue to monitor, patient seen by Cardiology further recommendation to follow, we have a PT OT evaluate the patient, patient will benefit acute rehab and dietary consult Review of Systems Review of Systems: ROS unobtainable: Yes unobtainable due to medical condition PMFSH Past Medical History Medical History (Updated 07/11/20 @ 18:46 by Avery Tellez MD) Acute respiratory failure Hospitalization June 06 through July 20, 2019 intubated 07/07/2019 through 07/14/2019 due to sepsis with septic shock, fluid overload, cellulitis with abscess of the left buttock Aortic stenosis severe on echocardiogram July 2019 Arthritis CAD (coronary artery disease) of artery bypass graft With history of stents x4. Dr. Ribeiro Cataract CHF (congestive heart failure) Echocardiogram 07/2019: Mildly reduced left ventricular systolic function EF of 40-45%, moderately increased left ventricular wall thickness, grade 1 diastolic dysfunction, decreased right ventricular systolic function, right ventricular chamber mildly enlarged, left atrial straight per moderately enlarged, severe aortic valve stenosis with valve area of 0.62, severe aortic valve calcification, mild tricuspid regurgitation, moderate pulmonary hypertension with RVSP of 52 Depression Diabetes Follicular low grade B-cell lymphoma GERD (gastroesophageal reflux disease) Hypercholesterolemia Hypertension Mitral valve prolapse Morbid (severe) obesity due to excess calories Morbid obesity with BMI of 60.0-69.9, adult Non-Hodgkin lymphoma He is a patient of Dr. Oliveira. Peripheral neuropathy Pulmonary hypertension Moderate on echocardiogram from 2018 Restless legs syndrome Sleep apnea Patient does not use a CPAP at nighttime. Unspecified background retinopathy Surgical History Surgical History H/O arthroscopic knee surgery H/O cardiac catheterization H/O inguinal hernia repair History of appendectomy Hx of tonsillectomy Family History Family History Father Heart disease Diabetes mellitus Lung disease CHF (congestive heart failure) Atrial fibrillation Mother Breast cancer Dementia Son Aneurysm, aorta, abdominal, ruptured Acute myocardial infarction Other Family history of obesity Social History Social History Social History: Mr. Kowalski is and lives with his in [place], [place]. He designates his , Puja, as his surrogate decision maker and he wishes to be a full code. He denies alcohol, tobacco, and drug use. His primary care provider is Dr. Leo Doss. Smoking status: Never smoker Alcohol intake: never Substance use: never Gender identity (if verbalized by the patient): Male Spiritual care concerns: No Agree to blood products: Yes Meds Home Medications and Allergies Home Medications Medication Instructions Recorded Confirmed Type aspirin 81 mg PO DAILY 05/31/19 07/11/20 History nitroglycerin 0.4 mg SUBLINGUAL Q5MIN PRN 05/31/19 07/11/20 History omega 5-jzd-tiy-fish oil [Fis
[2020-07-11] MEDS: ASPIRIN 81 MG ENTERIC TABLET PO (18:41)
--- NOTE | 2020-07-11 19:08 | PC.NURSE ---
Ticagrelor 90 mg PO Q12HR SCHUYLER was scheduled at 1840. I administeered 1840 dose prior to pharmacy changing the time of administration to 2100.
[2020-07-11 19:46] LABS: Glucose Point of Care 295 (65-105)
[2020-07-11] MEDS: METOPROLOL TARTRATE 12.5 MG TABLET PO (20:15)
[2020-07-11] MEDS: traZODone HCL 50 MG TABLET 100 MG PO (20:15)
[2020-07-11] MEDS: PRAMIPEXOLE 1 MG TABLET PO (20:16)
[2020-07-11] MEDS: GABAPENTIN 300 MG CAPSULE PO (20:16)
[2020-07-11] MEDS: QUEtiapine FUMARATE 25 MG TABLET 50 MG PO (20:16)
[2020-07-11] MEDS: INSULIN GLARGINE (*BKC) 100 UNITS/ML 26 UNITS SUB-Q (20:20)
[2020-07-12] VITALS (15 sets, daily range): BP systolic 91–113; BP diastolic 49–76; PULSE 66–103; RESP 12–26; TEMP 35.7–36.4; O2SAT 96–100
[2020-07-12 05:21] LABS: Alanine Aminotransferase 13 U/L (4-50); Albumin Level 3.7 g/dL (3.5-5.1); Alkaline Phosphatase 47 U/L (38-126); Anion Gap 6 mmol/L (8-16); Aspartate Amino Transferase 23 U/L (17-59); Bilirubin,Total 0.5 mg/dL (0.2-1.3); Blood Urea Nitrogen 31 mg/dL (9-20); CRP 0.7 mg/dL (<1.0); Calcium 9.1 mg/dL (8.4-10.2); Carbon Dioxide 32 mmol/L (22-30); Chloride 100 mmol/L (98-107); Estimated CRCL calculation 70 ml/min; Estimated Glomerular Filt Rate 50; Glucose 199 mg/dL (75-110); Magnesium 1.7 mg/dL (1.6-2.3); Potassium 4.6 mmol/L (3.4-5.0); Sodium 138 mmol/L (137-145)
[2020-07-12 05:35] LABS: Basophils Percent Auto 0.1 % (0.2-1.2); Eosinophils Percent Auto 0.1 % (0-4.4); Hematocrit 32.4 % (42.0-52.0); Hemoglobin 10.4 g/dL (14.0-18.0); Immature Granulocyte Absolute 0.13 K/mm3 (0.00-0.031); Immature Granulocyte Percent A 0.9 % (0-0.5); Lymphocytes Absolute Auto 0.59 K/mm3 (0.9-3.2); Lymphocytes Percent Auto 4.1 % (18.3-44.2); Mean Corpuscular HGB Conc 32.1 g/dl (32-36); Mean Corpuscular Hemoglobin 27.7 pg (26-34); Mean Corpuscular Volume 86.2 fl (80-100); Mean Platelet Volume 10.8 fl (7.4-10.4); Monocytes Absolute Auto 0.7 K/mm3 (0.1-0.6); Monocytes Percent Auto 4.5 % (2.6-8.5); Neutrophils Absolute Auto 13.1 K/mm3 (1.3-6.7); Neutrophils Percent Auto 90.3 % (45.5-73.1); Platelet Count Result 256 k/mm3 (150-375); Red Blood Count 3.76 M/mm3 (4.6-6.20); Red Cell Distribution Width 15.8 % (11.5-14.5); White Blood Count 14.5 K/mm3 (4.5-10.0)
[2020-07-12 08:08] LABS: Glucose Point of Care 178 (65-105)
[2020-07-12] MEDS: metFORMIN HCL 500 MG TABLET 1000 MG PO ×2 (08:12→18:59)
[2020-07-12] MEDS: METOPROLOL TARTRATE 12.5 MG TABLET PO ×2 (08:12→20:34)
[2020-07-12] MEDS: BACLOFEN 10 MG TABLET PO (08:13)
[2020-07-12] MEDS: ATORVASTATIN 40 MG TABLET 80 MG PO (08:13)
[2020-07-12] MEDS: FLUoxetine HCL 20 MG CAPSULE PO (08:13)
[2020-07-12] MEDS: GABAPENTIN 300 MG CAPSULE PO ×2 (08:13→18:59)
[2020-07-12] MEDS: OMEGA 3 POLYUNSAT FATTY ACIDS 1 GM CAP PO ×2 (08:14→18:58)
[2020-07-12] MEDS: TICAGRELOR 90 MG TABLET PO ×2 (08:14→20:35)
[2020-07-12] MEDS: ASPIRIN 81 MG ENTERIC TABLET PO (08:14)
[2020-07-12] MEDS: FUROSEMIDE INJ 40 MG/4 ML VIAL IV PUSH (08:15)
[2020-07-12 12:15] LABS: Glucose Point of Care 209 (65-105)
[2020-07-12] MEDS: INSULIN ASPART (*BKC) 100 UNITS/ML SUB-Q (12:37)
--- NOTE | 2020-07-12 13:15 | PM.PNCARD ---
Progress Note: A&P Assessment and Plan (1) CHF exacerbation: Qualifiers: Heart failure type: unspecified Qualified Code(s): I50.9 - Heart failure, unspecified Code(s): I50.9 - Heart failure, unspecified Status: Acute Assessment and Plan: Acute on chronic exacerbation of heart failure with preserved ejection fraction EF 50-55%. Improvement diuresis and BiPAP. Patient now admits he has not been compliant with CPAP nor does he have home oxygen as previously ordered. Counseled extensively on the importance of compliance with diet, diuretic, and CPAP with nocturnal O2. Patient verbalized understanding and agrees. Change to p.o. Lasix 40 mg daily if able to wean O2 off. Follow-up with TAVR workup as scheduled at [place] as soon as possible. Counseled once again on CHF and went to communicate any change in weight, progressive dyspnea or edema. If O2 weaned off disposition per hospitalist service to follow with Dr. Ribeiro as an outpatient in the next 2-4 weeks. (2) Severe aortic stenosis: Code(s): I35.0 - Nonrheumatic aortic (valve) stenosis Status: Acute Assessment and Plan: Patient process of TAVR workup initially at [facility]. However, given current pandemic latest per TAVR coordinator is anticipated TAVR to be performed at [place]. He has yet to obtain CT TAVR protocol at [facility] preoperatively. (3) Elevated troponin: Code(s): R79.89 - Other specified abnormal findings of blood chemistry Status: Chronic Assessment and Plan: Minimal elevation not secondary to acute coronary syndrome, type 2 infarct in setting of CHF, severe , underlying CAD and hypoxic respiratory failure. (4) CAD (coronary artery disease) of artery bypass graft: Code(s): I25.810 - Atherosclerosis of coronary artery bypass graft(s) without angina pectoris Status: Acute Assessment and Plan: As above. Continue aspirin, statin, metoprolol, Brilinta. (5) Cardiomyopathy: Qualifiers: Cardiomyopathy type: unspecified Qualified Code(s): I42.9 - Cardiomyopathy, unspecified Code(s): I42.9 - Cardiomyopathy, unspecified Status: Acute Assessment and Plan: Mild LV dysfunction EF 50-55% by coronary angiography 04/06/2028 [facility]. Recommend NADEEM-inhibitor or ARB given LV dysfunction as BP and renal function allow. (6) Morbid obesity with body mass index (BMI) of 50.0 to 59.9 in adult: Code(s): E66.01 - Morbid (severe) obesity due to excess calories; Z68.43 - Body mass index [BMI] 50.0-59.9, adult Status: Acute Assessment and Plan: Remains a complicating issue. (7) JOE (obstructive sleep apnea): Code(s): G47.33 - Obstructive sleep apnea (adult) (pediatric) Status: Acute Assessment and Plan: Continue BiPAP. (8) Type 2 diabetes mellitus with hyperglycemia: Qualifiers: Diabetes mellitus data entry manager insulin use: with data entry manager use Qualified Code(s): E11.65 - Type 2 diabetes mellitus with hyperglycemia; Z79.4 - shelter (current) use of insulin Code(s): E11.65 - Type 2 diabetes mellitus with hyperglycemia Status: Acute Assessment and Plan: Management per primary service. Subjective Date/time seen: Date of service: 07/12/20 13:15 Follow-up for aortic stenosis, CHF Patient states he feels very well. Denies shortness of breath or chest pain. Remains on 4 L nasal cannula however. Compliant with an tolerating BiPAP overnight. Denies chest pain, palpitations or dizziness. Mild shortness of breath with ambulation but at his baseline. Upon further questioning patient now admits he has in fact not been wearing CPAP at home as advised (he previously stated he was compliant) not does he have nocturnal oxygen with his CPAP as this was apparently taken back as he was noncompliant. He states his CPAP was not functioning well so it is tented off repair but has it back but has not resumed u
--- NOTE | 2020-07-12 17:04 | PM.IMPN ---
Progress Note: A&P Assessment and Plan (1) Acute respiratory failure with hypoxia: Code(s): J96.01 - Acute respiratory failure with hypoxia Status: Acute Assessment and Plan: 07/12/20 17:04 Pascual Kowalski is a 69 year old male patient is morbidly obese with history of coronary artery disease recently patient was transferred to [facility] and had a cardiac catheterization and stents were placed, patient also has history of severe aortic stenosis pending surgical consultation, patient also has history COPD, obstructive sleep apnea on BiPAP currently, patient presented emergency department with shortness of breath most likely multifactorial secondary to exacerbation of CHF as well as COPD, hypoventilation secondary to morbid obesity, patient is being being diuresed with IV Lasix, patient is on BiPAP, will continue to monitor, patient seen by Cardiology further recommendation to follow, we have a PT OT evaluate the patient, patient will benefit acute rehab and dietary consult Today patient is more off BiPAP on nasal cannula 2 L, is feeling much better compared to when he arrived however he is not on home oxygen, the patient was seen by Adult Education Professional and no further workup was recommended, will continue to monitor the patient overnight and monitor patient oxygen, and reassess patient and order home oxygen evaluation and further recommendation to follow, will have a PT OT evaluate the patient and further recommendation to follow (2) CHF exacerbation: Qualifiers: Heart failure type: unspecified Qualified Code(s): I50.9 - Heart failure, unspecified Code(s): I50.9 - Heart failure, unspecified Status: Acute Assessment and Plan: Patient with mild systolic dysfunction with ejection fraction of 55% most likely patient has a acute on chronic systolic dysfunction (3) CAD (coronary artery disease) of artery bypass graft: Code(s): I25.810 - Atherosclerosis of coronary artery bypass graft(s) without angina pectoris Status: Acute Assessment and Plan: Patient with history coronary artery disease with elevated tropes most likely demand ischemia due to shortness of breath unlikely acute coronary syndrome patient is seen by maintenance technician and further recommendation to follow. (4) Severe aortic stenosis: Code(s): I35.0 - Nonrheumatic aortic (valve) stenosis Status: Acute Assessment and Plan: Patient is seen maintenance technician at the [facility] and further workup is needed for the surgical intervention patient is seen by maintenance technician and further recommendation to follow (5) COVID-19 ruled out: Code(s): Z03.818 - Encounter for observation for suspected exposure to other biological agents ruled out Status: Acute Assessment and Plan: COVID test is negative patient is off isolation (6) DVT prophylaxis: Code(s): Z29.9 - Encounter for prophylactic measures, unspecified Status: Acute Assessment and Plan: Patient is on Brilinta and aspirin will place SCDs Subjective Date/time seen: 07/12/20 17:04 Pascual Kowalski is a 69 year old male patient is morbidly obese with history of coronary artery disease recently patient was transferred to [facility] and had a cardiac catheterization and stents were placed, patient also has history of severe aortic stenosis pending surgical consultation, patient also has history COPD, obstructive sleep apnea on BiPAP currently, patient presented emergency department with shortness of breath most likely multifactorial secondary to exacerbation of CHF as well as COPD, hypoventilation secondary to morbid obesity, patient is being being diuresed with IV Lasix, patient is on BiPAP, will continue to monitor, patient seen by Cardiology further recommendation to follow, we have a PT OT evaluate the patient, patient will benefit acute rehab and dietary consult Today patient is more off BiPAP on nasal cannula
[2020-07-12 17:18] LABS: Glucose Point of Care 157 (65-105)
--- NOTE | 2020-07-12 17:25 | PDONCCN ---
HPI - Date of Consult Date/Time: 07/12/20 17:25 Requesting Physician: Ca Goodwin DO Primary Care Provider: Leo Doss MD - Consult Narrative Reason for consult: History of follicle lymphoma Narrative: Pascual Kowalski is a 69 year old male with history of stage I follicular lymphoma in status post right inguinal mass biopsy in January 2018. Patient received chemotherapy with bendamustine Rituxan for 6 cycles completed in August 2018. He then received radiation therapy to the bulky disease completed in September 2018. He completed maintenance Rituxan treatment in March 2019. He now came into the hospital with increasing shortness of breath and generalized weakness. Patient has a history of coronary artery disease status post stent placement as well as history of severe aortic stenosis and COPD. Patient also has obstructive sleep apnea on BiPAP. CT chest showed bibasilar patchy atelectasis and possible pneumonia with small pleural effusion. Patient was admitted to the hospital for acute on chronic excessive a braun of heart failure. He is now feeling better after diuresis. Denies any fever chills. No other new complaints. Review of Systems - Review of Systems All systems reviewed & are unremarkable except as noted in HPI and bel - Neurologic Reports system reviewed and no additional complaints, except as documented, Reports weakness, Denies abnormal speech, Denies abnormal gait, Denies confusion, Denies headache(s), Denies focal weakness, Denies loss of vision, Denies numbness, Denies other visual disturbances, Denies sensory deficit [facility] Medical History: Medical History (Last Updated 07/11/20 @ 16:53 by Jacob Sin MD) Acute respiratory failure Hospitalization June 06 through July 20, 2019 intubated 07/07/2019 through 07/14/2019 due to sepsis with septic shock, fluid overload, cellulitis with abscess of the left buttock Aortic stenosis severe on echocardiogram July 2019 Arthritis CAD (coronary artery disease) of artery bypass graft With history of stents x4. Dr. Ribeiro Cataract CHF (congestive heart failure) Echocardiogram 07/2019: Mildly reduced left ventricular systolic function EF of 40-45%, moderately increased left ventricular wall thickness, grade 1 diastolic dysfunction, decreased right ventricular systolic function, right ventricular chamber mildly enlarged, left atrial straight per moderately enlarged, severe aortic valve stenosis with valve area of 0.62, severe aortic valve calcification, mild tricuspid regurgitation, moderate pulmonary hypertension with RVSP of 52 Depression Diabetes Follicular low grade B-cell lymphoma GERD (gastroesophageal reflux disease) Hypercholesterolemia Hypertension Mitral valve prolapse Morbid (severe) obesity due to excess calories Morbid obesity with BMI of 60.0-69.9, adult Non-Hodgkin lymphoma He is a patient of Dr. Oliveira. Peripheral neuropathy Pulmonary hypertension Moderate on echocardiogram from 2019 Restless legs syndrome Sleep apnea Patient does not use a CPAP at nighttime. Unspecified background retinopathy Surgical History: Surgical History (Last Reviewed 07/11/20 @ 16:45 by Jacob Sin MD) H/O arthroscopic knee surgery H/O cardiac catheterization H/O inguinal hernia repair History of appendectomy Hx of tonsillectomy Family History: Family History (Last Reviewed 07/11/20 @ 16:45 by Jacob Sin MD) Father Heart disease Diabetes mellitus Lung disease CHF (congestive heart failure) Atrial fibrillation Mother Breast cancer Dementia Son Aneurysm, aorta, abdominal, ruptured Acute myocardial infarction Other Family history of obesity - Social History Social History: Social History (Last Reviewed 07/11/20 @ 16:45 by Jacob Sin MD) Gender Identity: Gender identity (if verbalized by the patient): Male Alcohol Use: Alcohol intake: never Substance Use:
--- NOTE | 2020-07-12 20:10 | PC.NURSE ---
This patient, Pascual Kowalski, was received from [[id number]] on 07/12/20 at 2013. Patient/family oriented to unit policies and routines
[2020-07-12] MEDS: INSULIN GLARGINE (*BKC) 100 UNITS/ML 26 UNITS SUB-Q (20:25)
[2020-07-12] MEDS: PRAMIPEXOLE 1 MG TABLET PO (20:34)
[2020-07-12] MEDS: QUEtiapine FUMARATE 25 MG TABLET 50 MG PO (20:34)
[2020-07-12] MEDS: traZODone HCL 50 MG TABLET 100 MG PO (20:35)
--- NOTE | 2020-07-12 20:59 | PC.NURSE ---
Patient voided 4 times throughout the day with therapy per patient. Output not recorded.
[2020-07-12 21:10] LABS: Glucose Point of Care 240 (65-105)
--- NOTE | 2020-07-12 21:31 | PC.NURSE ---
Report called to [facility]. Patient transferred at 1937.
[2020-07-13] VITALS (16 sets, daily range): BP systolic 96–109; BP diastolic 50–57; PULSE 60–82; RESP 18–22; TEMP 36.3–37.4; O2SAT 90–100
[2020-07-13 05:44] LABS: Basophils Absolute Auto 0.1 K/mm3 (0.0-0.1); Basophils Percent Auto 0.4 % (0.2-1.2); Eosinophils Absolute Auto 0.1 K/mm3 (0-0.3); Eosinophils Percent Auto 0.9 % (0-4.4); Hematocrit 34.2 % (42.0-52.0); Hemoglobin 10.5 g/dL (14.0-18.0); Immature Granulocyte Absolute 0.17 K/mm3 (0.00-0.031); Immature Granulocyte Percent A 1.2 % (0-0.5); Lymphocytes Absolute Auto 1.18 K/mm3 (0.9-3.2); Lymphocytes Percent Auto 8.6 % (18.3-44.2); Mean Corpuscular HGB Conc 30.7 g/dl (32-36); Mean Corpuscular Hemoglobin 27.7 pg (26-34); Mean Corpuscular Volume 90.2 fl (80-100); Monocytes Absolute Auto 0.8 K/mm3 (0.1-0.6); Monocytes Percent Auto 6.1 % (2.6-8.5); Neutrophils Absolute Auto 11.3 K/mm3 (1.3-6.7); Neutrophils Percent Auto 82.8 % (45.5-73.1); Platelet Count Result 251 k/mm3 (150-375); Red Blood Count 3.79 M/mm3 (4.6-6.20); Red Cell Distribution Width 16.1 % (11.5-14.5); White Blood Count 13.7 K/mm3 (4.5-10.0)
[2020-07-13 06:09] LABS: Alanine Aminotransferase 15 U/L (4-50); Albumin Level 3.7 g/dL (3.5-5.1); Alkaline Phosphatase 46 U/L (38-126); Anion Gap 6 mmol/L (8-16); Aspartate Amino Transferase 21 U/L (17-59); Bilirubin,Total 0.3 mg/dL (0.2-1.3); Blood Urea Nitrogen 43 mg/dL (9-20); Calcium 9.2 mg/dL (8.4-10.2); Carbon Dioxide 32 mmol/L (22-30); Chloride 100 mmol/L (98-107); Estimated CRCL calculation 58 ml/min; Estimated Glomerular Filt Rate 40; Glucose 149 mg/dL (75-110); Potassium 5.1 mmol/L (3.4-5.0); Sodium 138 mmol/L (137-145)
[2020-07-13 07:29] LABS: Glucose Point of Care 155 (65-105)
[2020-07-13] MEDS: GABAPENTIN 300 MG CAPSULE PO ×2 (08:13→17:00)
[2020-07-13] MEDS: ATORVASTATIN 40 MG TABLET 80 MG PO (08:13)
[2020-07-13] MEDS: FUROSEMIDE 40 MG TABLET PO (08:14)
[2020-07-13] MEDS: ASPIRIN 81 MG ENTERIC TABLET PO (08:14)
[2020-07-13] MEDS: METOPROLOL TARTRATE 12.5 MG TABLET PO ×2 (08:14→20:49)
[2020-07-13] MEDS: TICAGRELOR 90 MG TABLET PO ×2 (08:14→20:49)
[2020-07-13] MEDS: FLUoxetine HCL 20 MG CAPSULE PO (08:14)
[2020-07-13] MEDS: OMEGA 3 POLYUNSAT FATTY ACIDS 1 GM CAP PO ×2 (08:15→17:01)
[2020-07-13] MEDS: metFORMIN HCL 500 MG TABLET 1000 MG PO ×2 (08:15→17:01)
--- NOTE | 2020-07-13 11:04 | HOMEO2EVAL ---
Home Oxygen Evaluation RC: Home Oxygen (O2) Evaluation Start: 07/13/20 08:56 Freq: ONCE Status: Active Protocol: RPE Activity Type Activity Date Activity User E-Sign Co-Sign Detail Recorded Client Recorded Date Recorded By Document 07/13/20 10:40 DJO [id number] 07/13/20 11:04 DJO Document 07/13/20 10:45 [email or web address] [id number] 07/13/20 11:04 DJO Document 07/13/20 10:55 [email or web address] [email or web address] 07/13/20 11:04 DJO 07/13/20 07/13/20 07/13/20 10:40 10:45 10:55 Home O2 Evaluation Test Phase Resting Exercise Resting Oxygen Delivery Room Air Room Air Room Air Pulse Oximetry (90-100 %) 96 92 97 Ambulation Distance (feet) 200 Home Oxygen Evaluation Comments NO HOME O2 NEEDED AT REST AND WITH ACTIVITY Treatment Charges O2 Evaluation
--- NOTE | 2020-07-13 11:23 | PCRCNOTE ---
PT STATES HE HAS A WORKING HOME CPAP UNIT FROM [facility] FROM 2017 THAT HAD BEEN SERVICED AND IS IN WORKING ORDER OF NOW. HE PLANS TO WEAR IT WHEN HE GETS HOME. HE HAD 3L O2 BLEED IN BACK IN 2017, BUT SINCE HE WASNT WEARING, THEY TOOK BACK THE O2. HE CURRENTLY REQUIRES APPROX 3L BLEED INTO BIPAP UNIT HERE IN HOSPITAL.
[2020-07-13 11:36] LABS: Glucose Point of Care 168 (65-105)
--- NOTE | 2020-07-13 15:36 | PM.PNCARD ---
Progress Note: A&P Additional Plan Patient has shortness of breath for multifactorial reasons. Obviously he has significant aortic valve stenosis but he also has morbid obesity with a BMI of 57 and untreated sleep apnea as he has been noncompliant with his CPAP therapy. Reiterated and reinforced the importance of compliance with his CPAP. He is scheduled for TAVR CT scan at [facility] in the near future and then apparently the valve team between [place] [facility] will be determining where he can receive his valve replacement. I also spoke to the patient has some length about the option of open surgical aortic valve replacement and instructed him to discuss this option with the valve team as well since he is only 69 years old and I would certainly have concerns that a TAVR will not last the rest of his expected life in terms of treating his valvular disease. Leo Ribeiro MD [facility] Subjective Date/time seen: 07/13/20 15:36 Interval history: Follow-up visit in this 69-year-old white male with: Coronary artery disease previous percutaneous revascularization Severe aortic valve stenosis Morbid obesity Obstructive sleep apnea Exam Narrative: Exam Narrative: General: Very pleasant morbidly obese male sitting in a chair no apparent distress looks very comfortable speaking in full sentences, Well developed, alert and oriented x3, pleasant, and cooperative. Head: atraumatic, normocephalic Eyes: EOM intact, sclerae anicteric, conjunctivae unremarkable Ears/Nose: external inspection of ears and nose were grossly normal Mouth/Throat: oral mucosa pink and moist Neck: Obese, supple, normal range of motion, unable to appreciate jugular venous distention, no carotid bruits, thyroid nonpalpable, trachea midline. Cardiac: Regular rate and rhythm, normal S1-S2, III/ late peaking systolic murmur RUSB/LUSB Lungs: Diminished breath sounds diffusely but fairly clear to auscultation bilaterally, no obvious rales, wheezes, or rhonchi. Abdomen: Morbidly obese, soft, nontender, +subcutaneous edema, positive bowel sounds throughout. Unable to appreciable hepatosplenomegaly, no rebound guarding or rigidity noted. Abdominal aorta nonpalpable, unable to appreciate bruits. Extremities: Trace to 1+ bilateral LE edema, no clubbing or cyanosis. Extremities warm and well perfused. Skin: Warm and dry without ecchymoses, rashes, and/or petechiae. Musculoskeletal: Muscle strength and tone intact throughout without obvious deformities. Vascular: Carotid upstrokes 2+ bilaterally, radial pulses 2+ bilaterally, dorsalis pedis pulses 1+ bilaterally Neurologic: Cranial nerves 2-12 grossly intact, examination grossly nonfocal Pscyhiatric: Mood calm and appropriate. Objective Data Vital Signs Vital Signs: Vital Signs - 24 hr 07/12/20 16:00 07/12/20 18:00 07/12/20 20:00 Temperature 35.8 C L 36.4 C L Pulse Rate 68 73 69 Respiratory Rate 14 24 H Blood Pressure 97/54 L 104/49 L Pulse Oximetry 99 99 07/12/20 20:34 07/12/20 21:59 07/12/20 22:28 Temperature Pulse Rate 72 74 76 Respiratory Rate 23 H Blood Pressure Pulse Oximetry 96 97 07/13/20 00:00 07/13/20 02:00 07/13/20 04:00 Temperature 37.4 C Pulse Rate 60 81 71 Respiratory Rate 18 22 H Blood Pressure 98/50 L Pulse Oximetry 90 99 07/13/20 08:13 07/13/20 08:14 07/13/20 08:15 Temperature Pulse Rate 81 81 81 Respiratory Rate 20 20 Blood Pressure 109/57 L Pulse Oximetry 100 100 07/13/20 10:40 07/13/20 10:45 07/13/20 10:55 Temperature Pulse Rate Respiratory Rate Blood Pressure Pulse Oximetry 96 92 97 Intake/Output Intake/Output: Intake & Output 07/10/20 07/11/20 07/12/20 07/13/20 23:59 23:59 23:59 23:59 Intake Total 540 1670 870 Output Total 400 550 Balance 140 1120 870 Meds/Results Medications: Active Medications Generic Name Dose Route Start Last Admi
--- NOTE | 2020-07-13 15:57 | PM.IMPN ---
Progress Note: A&P Assessment and Plan (1) Acute respiratory failure with hypoxia: Code(s): J96.01 - Acute respiratory failure with hypoxia Status: Acute Assessment and Plan: 07/13/20 15:57 Pascual Kowalski is a 69 year old male patient is morbidly obese with history of coronary artery disease recently patient was transferred to [facility] and had a cardiac catheterization and stents were placed, patient also has history of severe aortic stenosis pending surgical consultation, patient also has history COPD, obstructive sleep apnea on BiPAP currently, patient presented emergency department with shortness of breath most likely multifactorial secondary to exacerbation of CHF as well as COPD, hypoventilation secondary to morbid obesity, patient is being being diuresed with IV Lasix, patient is on BiPAP, will continue to monitor, patient seen by Cardiology further recommendation to follow, we have a PT OT evaluate the patient, patient will benefit acute rehab and dietary consult Today 07/13/20 patient is off BiPAP now on nasal cannula 2 L, is feeling much better compared to when he arrived however he is not on home oxygen, the patient was seen by Property Management Assistant patient has severe aortic stenosis and he is in need of valve repair, boiling off winder as refer the patient to [facility] for TVAR, patient is morbidly obese with sleep apnea on CPAP and he is requiring oxygen at night for CPAP, will do apnea link, will continue to monitor the patient overnight and monitor patient oxygen, and reassess patient and further recommendation to follow, will have a PT OT evaluate the patient and further recommendation to follow (2) CHF exacerbation: Qualifiers: Heart failure type: unspecified Qualified Code(s): I50.9 - Heart failure, unspecified Code(s): I50.9 - Heart failure, unspecified Status: Acute Assessment and Plan: Patient with mild systolic dysfunction with ejection fraction of 55% most likely patient has a acute on chronic systolic dysfunction (3) CAD (coronary artery disease) of artery bypass graft: Code(s): I25.810 - Atherosclerosis of coronary artery bypass graft(s) without angina pectoris Status: Acute Assessment and Plan: Patient with history coronary artery disease with elevated tropes most likely demand ischemia due to shortness of breath unlikely acute coronary syndrome patient is seen by boiling off winder and further recommendation to follow. (4) Severe aortic stenosis: Code(s): I35.0 - Nonrheumatic aortic (valve) stenosis Status: Acute Assessment and Plan: Patient is seen boiling off winder at the [facility] and further workup is needed for the surgical intervention patient is seen by boiling off winder and further recommendation to follow (5) COVID-19 ruled out: Code(s): Z03.818 - Encounter for observation for suspected exposure to other biological agents ruled out Status: Acute Assessment and Plan: COVID test is negative patient is off isolation (6) DVT prophylaxis: Code(s): Z29.9 - Encounter for prophylactic measures, unspecified Status: Acute Assessment and Plan: Patient is on Brilinta and aspirin will place SCDs Subjective Date/time seen: 07/13/20 15:57 Pascual Kowalski is a 69 year old male patient is morbidly obese with history of coronary artery disease recently patient was transferred to [facility] and had a cardiac catheterization and stents were placed, patient also has history of severe aortic stenosis pending surgical consultation, patient also has history COPD, obstructive sleep apnea on BiPAP currently, patient presented emergency department with shortness of breath most likely multifactorial secondary to exacerbation of CHF as well as COPD, hypoventilation secondary to morbid obesity, patient is being being diuresed with IV Lasix, patient is on BiPAP, will continue to monitor, patient s
[2020-07-13 17:47] LABS: Glucose Point of Care 177 (65-105)
[2020-07-13] MEDS: QUEtiapine FUMARATE 25 MG TABLET 50 MG PO (20:48)
[2020-07-13] MEDS: traZODone HCL 50 MG TABLET 100 MG PO (20:48)
[2020-07-13] MEDS: PRAMIPEXOLE 1 MG TABLET PO (20:48)
[2020-07-13] MEDS: BACLOFEN 10 MG TABLET PO (20:48)
[2020-07-13] MEDS: INSULIN GLARGINE (*BKC) 100 UNITS/ML 26 UNITS SUB-Q (20:53)
[2020-07-13 21:52] LABS: Glucose Point of Care 220 (65-105)
[2020-07-14] VITALS (8 sets, daily range): BP systolic 100–112; BP diastolic 65; PULSE 66–95; RESP 20; TEMP 36.2–36.4; O2SAT 73–95
[2020-07-14 06:30] LABS: Basophils Absolute Auto 0.1 K/mm3 (0.0-0.1); Basophils Percent Auto 0.6 % (0.2-1.2); Eosinophils Absolute Auto 0.3 K/mm3 (0-0.3); Eosinophils Percent Auto 2.3 % (0-4.4); Hematocrit 35.3 % (42.0-52.0); Hemoglobin 11.2 g/dL (14.0-18.0); Immature Granulocyte Absolute 0.15 K/mm3 (0.00-0.031); Immature Granulocyte Percent A 1.3 % (0-0.5); Lymphocytes Absolute Auto 1.11 K/mm3 (0.9-3.2); Lymphocytes Percent Auto 9.4 % (18.3-44.2); Mean Corpuscular HGB Conc 31.7 g/dl (32-36); Mean Corpuscular Hemoglobin 28.2 pg (26-34); Mean Corpuscular Volume 88.9 fl (80-100); Monocytes Absolute Auto 0.8 K/mm3 (0.1-0.6); Monocytes Percent Auto 7.1 % (2.6-8.5); Neutrophils Absolute Auto 9.3 K/mm3 (1.3-6.7); Neutrophils Percent Auto 79.3 % (45.5-73.1); Platelet Count Result 248 k/mm3 (150-375); Red Blood Count 3.97 M/mm3 (4.6-6.20); Red Cell Distribution Width 15.9 % (11.5-14.5); White Blood Count 11.8 K/mm3 (4.5-10.0)
[2020-07-14 06:52] LABS: Alanine Aminotransferase 22 U/L (4-50); Albumin Level 3.9 g/dL (3.5-5.1); Alkaline Phosphatase 52 U/L (38-126); Anion Gap 8 mmol/L (8-16); Aspartate Amino Transferase 30 U/L (17-59); Bilirubin,Total 0.5 mg/dL (0.2-1.3); Blood Urea Nitrogen 48 mg/dL (9-20); Calcium 9.6 mg/dL (8.4-10.2); Carbon Dioxide 31 mmol/L (22-30); Chloride 101 mmol/L (98-107); Estimated CRCL calculation 62 ml/min; Estimated Glomerular Filt Rate 43; Glucose 142 mg/dL (75-110); Potassium 4.9 mmol/L (3.4-5.0); Sodium 140 mmol/L (137-145)
[2020-07-14 07:28] LABS: Glucose Point of Care 124 (65-105)
[2020-07-14] MEDS: FLUoxetine HCL 20 MG CAPSULE PO (08:07)
[2020-07-14] MEDS: OMEGA 3 POLYUNSAT FATTY ACIDS 1 GM CAP PO ×2 (08:07→17:15)
[2020-07-14] MEDS: ASPIRIN 81 MG ENTERIC TABLET PO (08:07)
[2020-07-14] MEDS: FUROSEMIDE 40 MG TABLET PO (08:07)
[2020-07-14] MEDS: GABAPENTIN 300 MG CAPSULE PO ×2 (08:07→17:15)
[2020-07-14] MEDS: TICAGRELOR 90 MG TABLET PO (08:07)
[2020-07-14] MEDS: ATORVASTATIN 40 MG TABLET 80 MG PO (08:07)
[2020-07-14] MEDS: METOPROLOL TARTRATE 12.5 MG TABLET PO (08:08)
[2020-07-14] MEDS: metFORMIN HCL 500 MG TABLET 1000 MG PO ×2 (08:08→17:15)
--- NOTE | 2020-07-14 09:30 | PM.IMPN ---
Progress Note: A&P Assessment and Plan (1) Acute respiratory failure with hypoxia: Code(s): J96.01 - Acute respiratory failure with hypoxia Status: Acute (2) CHF exacerbation: Qualifiers: Heart failure type: unspecified Qualified Code(s): I50.9 - Heart failure, unspecified Code(s): I50.9 - Heart failure, unspecified Status: Acute (3) Severe aortic stenosis: Code(s): I35.0 - Nonrheumatic aortic (valve) stenosis Status: Acute (4) COVID-19 ruled out: Code(s): Z03.818 - Encounter for observation for suspected exposure to other biological agents ruled out Status: Acute Additional Plan 1) Acute respiratory failure with hypoxia: Pascual Kowalski is a 69 year old male patient is morbidly obese with history of coronary artery disease recently patient was transferred to [facility] and had a cardiac catheterization and stents were placed, patient also has history of severe aortic stenosis pending surgical consultation, patient also has history COPD, obstructive sleep apnea on BiPAP currently, patient presented emergency department with shortness of breath most likely multifactorial secondary to exacerbation of CHF as well as COPD, hypoventilation secondary to morbid obesity, patient is being being diuresed with IV Lasix, patient is on BiPAP, will continue to monitor, patient seen by Cardiology further recommendation to follow, we have a PT OT evaluate the patient, patient will benefit acute rehab and dietary consult Patient is off BiPAP now on nasal cannula 2 L, is feeling much better compared to when he arrived however he is not on home oxygen, the patient was seen by System Controller patient has severe aortic stenosis and he is in need of valve repair, pest control operator as refer the patient to [facility] for TVAR, patient is morbidly obese with sleep apnea on CPAP and he is requiring oxygen at night for CPAP, will do apnea link, will continue to monitor the patient overnight and monitor patient oxygen, and reassess patient and further recommendation to follow, will have a PT OT evaluate the patient and further recommendation to follow (2) CHF exacerbation: Assessment and Plan: Patient with mild systolic dysfunction with ejection fraction of 55% most likely patient has a acute on chronic systolic dysfunction (3) CAD (coronary artery disease) of artery bypass graft: Assessment and Plan: Patient with history coronary artery disease with elevated tropes most likely demand ischemia due to shortness of breath unlikely acute coronary syndrome patient is seen by pest control operator and further recommendation to follow. (4) Severe aortic stenosis: Assessment and Plan: Patient is seen pest control operator at the [facility] and further workup is needed for the surgical intervention patient is seen by pest control operator and further recommendation to follow (5) COVID-19 ruled out: Assessment and Plan: COVID test is negative patient is off isolation (6) DVT prophylaxis: Assessment and Plan: Time Spent With Patient Time with patient: 15 - 25 minutes Subjective Date/time seen: 07/14/20 09:30 Interval history: Patient is seen during the morning rounds today. feeling much better. decreased sob, no chest pain, mood stable. Review of Systems Review of Systems: All systems reviewed & are unremarkable except as noted in HPI and below Constitutional: Constitutional: Reports no additional constitutional complaints Cardiovascular: Cardiovascular: Reports no additional cardiovascular complaints Respiratory: Respiratory: Reports no additional respiratory complaints Gastrointestinal: Gastrointestinal: Reports no additional gastrointestinal complaints Genitourinary: Genitourinary: Reports no additional male genitourinary complaints Musculoskeletal: Musculoskeletal: Reports no additional musculoskeletal complaints Exam Const: General: cooperative Nutritional Appea
--- NOTE | 2020-07-14 09:40 | PM.IMPN ---
Subjective Date/time seen: 07/14/20 09:40 Interval history: Patient is seen during the morning rounds today. feeling much better. decreased sob, no chest pain, mood stable. Objective Data Vital Signs Vital Signs: Vital Signs - 24 hr 07/13/20 10:40 07/13/20 10:45 07/13/20 10:55 Temperature Pulse Rate Respiratory Rate Blood Pressure Pulse Oximetry 96 92 97 07/13/20 12:00 07/13/20 16:00 07/13/20 20:00 Temperature 36.5 C Pulse Rate 72 67 80 Respiratory Rate 20 20 Blood Pressure 108/56 L Pulse Oximetry 100 100 07/13/20 20:49 07/13/20 21:54 07/13/20 22:10 Temperature 36.3 C L Pulse Rate 80 71 Respiratory Rate 22 H Blood Pressure 96/51 L Pulse Oximetry 98 96 07/14/20 00:00 07/14/20 04:00 07/14/20 05:32 Temperature 36.2 C L Pulse Rate 66 82 75 Respiratory Rate 20 Blood Pressure 100/65 Pulse Oximetry 95 07/14/20 08:08 Temperature Pulse Rate 75 Respiratory Rate Blood Pressure Pulse Oximetry Intake/Output Intake/Output: Intake & Output 07/11/20 07/12/20 07/13/20 07/14/20 23:59 23:59 23:59 23:59 Intake Total 540 1670 1950 530 Output Total 400 550 Balance 140 1120 1950 530 Meds/Results Medications: Active Medications Generic Name Dose Route Start Last Admin Trade Name Freq PRN Reason Stop Dose Admin Hydrocodone Bitart/Acetaminophen 1 tab 07/11/20 18:38 Hydrocodone/Acetaminophen (*Crx) 5-325 Mg Tablet PO Q6H PRN Pain Aspirin 81 mg 07/11/20 17:00 07/14/20 08:07 Aspirin 81 Mg Enteric Tablet PO 81 mg QAM SCHUYLER Administration Atorvastatin Calcium 80 mg 07/12/20 09:00 07/14/20 08:07 Atorvastatin 40 Mg Tablet PO 80 mg DAILY SCHUYLER Administration Baclofen 10 mg 07/13/20 21:00 07/13/20 20:48 Baclofen 10 Mg Tablet PO 10 mg HS SCHUYLER Administration Dextrose 12.5 gm 07/11/20 18:40 Dextrose 50% 25 Gm/50 Ml Syringe IV PUSH PRN PRN Hypoglycemia Protocol Diphenoxylate HCl/Atropine 1 tablet 07/11/20 18:38 Diphenoxylate/Atropine (*Crx) 2.5 Mg Tablet PO QID PRN Diarrhea Ergocalciferol 100,000 unit 07/18/20 09:00 Ergocalciferol 50,000 Unit Capsule PO We@0900 SCHUYLER Fish Oil 1 gm 07/11/20 17:00 07/14/20 08:07 Nunnelly 3 Polyunsat Fatty Acids 1 Gm Cap PO 1 gm BID SCHUYLER Administration Fluoxetine HCl 20 mg 07/12/20 09:00 07/14/20 08:07 Fluoxetine Hcl 20 Mg Capsule PO 20 mg DAILY SCHUYLER Administration Furosemide 40 mg 07/13/20 09:00 07/14/20 08:07 Furosemide 40 Mg Tablet PO 40 mg DAILY SCHUYLER Administration Gabapentin 300 mg 07/11/20 17:00 07/14/20 08:07 Gabapentin 300 Mg Capsule PO 300 mg BID SCHUYLER Administration Glucagon 1 mg 07/11/20 18:40 Glucagon For Inj 1 Mg Vial IM PRN PRN Hypoglycemia Protocol Glucose 15 gm 07/11/20 18:40 Glucose Oral Gel 15 Gm Of Glucse In 37.5 Gm Tube PO PRN PRN Hypoglycemia Protocol Dextrose 1,000 mls @ 100 mls/hr 07/11/20 18:40 Dextrose 5% 1,000 Ml IVPB PRN PRN Hypoglycemia Protocol Insulin Aspart 2 - 5 units 07/12/20 08:00 07/14/20 08:08 Insulin Aspart (*Bkc) 100 Units/Ml SUB-Q Not Given TIDWM SCHUYLER Protocol Insulin Glargine 26 units 07/11/20 21:00 07/13/20 20:53 Insulin Glargine (*Bkc) 100 Units/Ml 0.15 units/kg (26 units) 26 units SUB-Q Administration HS SCHUYLER Lorazepam 1 mg 07/11/20 18:38 Lorazepam (*Crx) 1 Mg Tablet PO TID PRN anxiety Meclizine HCl 25 mg 07/11/20 18:38 Meclizine Hcl 25 Mg Tablet PO TID PRN Dizziness Metformin HCl 1,000 mg 07/12/20 08:00 07/14/20 08:08 Metformin Hcl 500 Mg Tablet PO 1,000 mg BIDWM SCHUYLER Administration Metoprolol Tartrate 12.5 mg 07/11/20 21:00 07/14/20 08:08 Metoprolol Tartrate 12.5 Mg Tablet PO 12.5 mg Q12HR SCHUYLER Administration Nitroglycerin 0.4 mg 07/11/20 18:38 Nitroglycerin Sl 0.4 Mg Tablet SUBLINGUAL Q5MIN NV
[2020-07-14 11:39] LABS: Glucose Point of Care 197 (65-105)
[2020-07-14 17:08] LABS: Glucose Point of Care 183 (65-105)
--- NOTE | 2020-07-14 22:53 | DS_ITS ---
DATE OF DISCHARGE: 07/14/2020 ADMITTING DIAGNOSES: 1. Acute respiratory failure and hypoxia. 2. Congestive heart failure. 3. Coronary artery disease. 4. Aortic stenosis. FINAL DIAGNOSES: 1. Acute respiratory failure with hypoxia. 2. Acute systolic congestive heart failure. 3. Coronary artery disease. 4. Nontraumatic aortic valve stenosis. HOSPITAL COURSE: The patient is an elderly male, 69 years old with history of multiple medical problems including coronary artery disease, who was transferred from [facility] where he had cardiac cath and stent placement and severe aortic stenosis pending surgical consultation, history of COPD, obstructive sleep apnea and BiPAP, presented to the emergency room with shortness of breath most likely multifactorial secondary to exacerbation of congestive heart failure, as well as COPD, hyperventilation secondary to morbid obesity. The patient on physical examination has aortic murmur and rales at the bases. The patient's important laboratory data show patient has pulse rate of 106, respiration rate of 30, blood pressure of 155/92, pulse ox 95%. The patient's wbc count was 15.3, hemoglobin 11.4, platelet count 249. Sodium 136, potassium 4.4, BUN 24, creatinine 1.1, troponin was slightly high 0.168,. The patient was admitted with diagnosis of acute respiratory failure with hypoxia and heart failure, coronary artery disease, aortic stenosis, COVID test was negative. The patient was given diuresis. Cardiology evaluation was done, rule out GA protocol was carried out. After few days of treatment, the patient started feeling better, so today patient discharged in stable condition. DISCHARGE INSTRUCTIONS: Diet: Cardiac diet. Activity: As tolerated. Follow this Cardiology and primary care physician on admission next week. DISCHARGE MEDICATIONS: The patient does take. 1. Aspirin 81 mg p.o. daily. 2. Nitroglycerin 0.4 mg sublingual p.r.n. 3. Trazodone 100 mg p.o. q.h.s. 4. Fluoxetine 20 mg p.o. daily. 5. Gabapentin 300 mg p.o. b.i.d. 6. Lasix 40 mg p.o. daily. 7. Insulin Lispro 8 units subcutaneously b.i.d. 8. Baclofen 10 mg p.o. daily. 9. Atorvastatin 80 mg p.o. daily. 10. Metoprolol 12.5 mg p.o. b.i.d. 11. Quetiapine 50 mg p.o. every night. 12. Meclizine 25 mg p.o. t.i.d. p.r.n. 13. Hydrocodone 5/325 one p.o. q.6 hours p.r.n. 14. Insulin 40 units subcutaneously every morning. 15. Glargine/Lorazepam 1 mg p.o. t.i.d. p.r.n. The patient has right to call primary care physician and Cardiology outpatient next week and followup with them for evaluation of aortic stenosis and heart failure as an outpatient. CONDITION AT THE TIME OF DISCHARGE: Stable. D I MT: Jenna
== END 2020-07-14 19:55 | disposition home health service (06) | DRG 291 ==
LOC: ANHED 05:48 → ANHIMU 10:50 → ANH2MED 07-13 10:07 → ANHIMU 07-18 10:30
PROVIDERS: Family Medicine; Admitting Provider Internal Medicine; Emergency Provider Emergency Medicine; PCP Family Medicine; Visit Provider Internal Medicine
DX: I11.0 Hypertensive heart disease with heart failure (principal); J96.01 Acute respiratory failure with hypoxia; I50.21 Acute systolic (congestive) heart failure; I25.810 Atherosclerosis of coronary artery bypass graft(s) without angina pectoris; Z68.43 Body mass index [BMI] 50.0-59.9, adult; E66.01 Morbid (severe) obesity due to excess calories; Z20.828 Contact with and (suspected) exposure to other viral communicable diseases; R77.8 Other specified abnormalities of plasma proteins; D64.9 Anemia, unspecified; I35.0 Nonrheumatic aortic (valve) stenosis; J44.9 Chronic obstructive pulmonary disease, unspecified; G47.33 Obstructive sleep apnea (adult) (pediatric); I27.20 Pulmonary hypertension, unspecified; E11.65 Type 2 diabetes mellitus with hyperglycemia; E11.319 Type 2 diabetes mellitus with unspecified diabetic retinopathy without macular edema; E11.42 Type 2 diabetes mellitus with diabetic polyneuropathy; E11.36 Type 2 diabetes mellitus with diabetic cataract; H26.9 Unspecified cataract; Z79.82 Long term (current) use of aspirin; Z79.4 Long term (current) use of insulin; Z85.72 Personal history of non-Hodgkin lymphomas
CPT/HCPCS: 36415; 36600; 71045; 71250; 80053; 82375; 82805; 83050; 83605; 83735; 83880; 84484; 85025; 85380; 85610; 85730; 86140; 87635; 93005; 94003; 94618; 94640; 94762; 96374; 96375; 97161; 97165; 99291; A9270; C9803; J0456; J0696; J1100; J1815; J1940; U0003

== ENCOUNTER 2020-12-03 11:56 | Outpatient (NON) | payer MEDICARE, SELFPAY ==
[2020-12-03 12:32] LABS: Anion Gap 7 mmol/L (8-16); Blood Urea Nitrogen 51 mg/dL (7-18); Calcium 9.4 mg/dL (8.5-10.1); Carbon Dioxide 29 mmol/L (21-32); Chloride 101 mmol/L (98-108); Estimated Glomerular Filt Rate 34; Glucose 171 mg/dL (70-99); Osmolality Calculated 301 mOsm/kg (285-295); Potassium 4.6 mmol/L (3.5-5.1); Sodium 137 mmol/L (136-145)
== END 2020-12-03 11:57 | disposition home or self-care (01) ==
LOC: CHSHH 11:59
PROVIDERS: Visit Provider Specialist
DX: Z48.812 Encounter for surgical aftercare following surgery on the circulatory system (principal); I25.10 Atherosclerotic heart disease of native coronary artery without angina pectoris; I11.0 Hypertensive heart disease with heart failure; I50.9 Heart failure, unspecified
CPT/HCPCS: 36415; 80048

== ENCOUNTER 2021-01-02 13:40 | Outpatient (NON) | payer MEDICARE, MEDICAID, SELFPAY ==
[2021-01-02 14:58] LABS: Anion Gap 8 mmol/L (8-16); Blood Urea Nitrogen 60 mg/dL (9-20); Calcium 9.8 mg/dL (8.4-10.2); Carbon Dioxide 24 mmol/L (22-30); Chloride 106 mmol/L (98-107); Estimated Glomerular Filt Rate 30; Glucose 99 mg/dL (75-110); Potassium 6.1 mmol/L (3.4-5.0); Sodium 138 mmol/L (137-145)
== END 2021-01-02 13:41 | disposition home or self-care (01) ==
PROVIDERS: PCP Family Medicine; Visit Provider Family Medicine
DX: I11.0 Hypertensive heart disease with heart failure (principal); I25.10 Atherosclerotic heart disease of native coronary artery without angina pectoris; I50.9 Heart failure, unspecified
CPT/HCPCS: 80048

== ENCOUNTER 2021-01-03 15:32 | Outpatient (NON) | payer MEDICARE, MEDICAID, SELFPAY ==
[2021-01-03 16:16] LABS: Anion Gap 10 mmol/L (8-16); Blood Urea Nitrogen 55 mg/dL (9-20); Calcium 9.3 mg/dL (8.4-10.2); Carbon Dioxide 26 mmol/L (22-30); Chloride 104 mmol/L (98-107); Estimated Glomerular Filt Rate 28; Glucose 143 mg/dL (75-110); Potassium 5.3 mmol/L (3.4-5.0); Sodium 140 mmol/L (137-145)
== END 2021-01-03 15:33 | disposition home or self-care (01) ==
LOC: HOME HLTH 15:35
PROVIDERS: PCP Family Medicine; Visit Provider Family Medicine
DX: I25.10 Atherosclerotic heart disease of native coronary artery without angina pectoris (principal); I11.0 Hypertensive heart disease with heart failure; E87.8 Other disorders of electrolyte and fluid balance, not elsewhere classified
CPT/HCPCS: 80048

== ENCOUNTER 2021-01-17 09:15 | Outpatient (CLI) | payer MEDICARE, MEDICAID, SELFPAY ==
--- NOTE | ~2021-01-17 | CT_ITS ---
EXAMINATION: CT chest abdomen pelvis w con EXAM DATE: 01/17/2021 10:08 INDICATION: Follicular lymphoma, inguinal region. TECHNIQUE: Spiral CT of the chest, abdomen and pelvis was performed following intravenous injection o f 100 mL Omnipaque 350. Axial, coronal and sagittal images chest, abdomen and pelvis were reviewed. Coronal maximum intensity pixel images of chest reviewed. The dose-length product (DLP) for this ex amination was 1990.84 mGy-cm. The exposure was tailored according to patient size (auto mA exposure control), and iterative reconstruction (ASIR) was used as additional dose reduction technique. Compar lupe is made to prior examination from chest CT 07/21/2020, chest abdomen pelvis CT 01/18/2020. FINDINGS: CHEST: Previously seen bibasilar pneumonia has resolved. There are some residual linear opacities co nsistent with scarring or atelectasis. Some scattered left apical granulomata. Aortic stent or valve, new compared to prior study. There are no pleural or pericardial effusions. Tracheobronchial tree is patent. There is no mediastinal, hilar or axillary lymphadenopathy. There is no pneumothorax. Heart normal in size. Probable left coronary arterial stent. Right-sided portacatheter. ABDOMEN PELVIS: There is right inguinal lymph node with some coarse calcifications measuring 5.2 x 2. 8 cm (previously about 6 x 3 cm), mild interval decrease in size compared to previous study. This is consistent with treated lymphoma. No other pathologically enlarged lymph nodes identified. Anterior a bdominal wall mesh. The liver, spleen, adrenal glands and pancreas are unremarkable. Gallbladder is unremarkable. No biliary obstruction. Portal and splenic veins are patent. Kidneys enhance symmet rically. There is no hydronephrosis. The prostate is unremarkable. The bladder is unremarkable. The appendix is not positively visualized. There is no pericecal inflammatory change to suggest appe ndicitis. The stomach and small bowel are unremarkable. There is expected amount of colonic stool. No free intraperitoneal gas. There are no osteoblastic or osteolytic lesions identified. Moderat e to severe lumbar disc disease. IMPRESSION: 1. Enlarged right inguinal lymph node, but with mild interval decrease in size. Treated lymphoma. 2. Chronic and surgical changes. Reviewed, dictated and finalized at location A.
[2021-01-17 09:57] LABS: Estimated Glomerular Filt Rate 38
== END 2021-01-17 09:16 | disposition home or self-care (01) ==
PROVIDERS: PCP Family Medicine; Visit Provider Nurse Practitioner Adult Health
DX: C82.95 Follicular lymphoma, unspecified, lymph nodes of inguinal region and lower limb (principal); Z98.890 Other specified postprocedural states
CPT/HCPCS: 71260; 74177; Q9967

== ENCOUNTER 2021-09-24 01:25 | Inpatient (IN) | payer MEDICARE, MEDICAID, SELFPAY ==
[2021-09-24] VITALS (67 sets, daily range): BP systolic 68–134; BP diastolic 23–103; PULSE 63–105; RESP 11–30; TEMP 36.8–37.2; O2SAT 87–100; BMI 59.5
--- NOTE | 2021-09-24 | ECHO_ITS ---
Patient Info Name: Pascual Kowalski Age: 71 years : 1950 Gender: Male Ht: 69 in Wt: 378 lbs BSA: 2.99 m2 HR: 97 bpm BP: 123 / 77 mmHg Heart Rhythm: Sinus Rhythm Technical Quality: Fair Exam Date: 09/24/2021 12:59 PM Exam Location: [facility] Pulmonary Patient Status: Inpatient Admit Date: 09/24/2021 Staff Ordering Physician: Moreno Rios MD Moisture Meter Reader: Lucia Park RDCS Attending Provider: Ca Goodwin DO Exam Type: CA echo dop color flow w con Study Info Indications - CHF, Complete two-dimensional, color flow and Doppler transthoracic echocardiogram is performed. Summary 1. Technically difficult study with limited views. Regional wall motion assessment limited despite definity contrast enhancement due to poor endomyocardial border definition. 2. Left ventricular chamber dimension is normal. 3. Left ventricular systolic function is normal, estimated at 55-60%. 4. The left ventricular diastolic function is grade I diastolic dysfunction. 5. There is no increased left ventricular wall thickness. 6. There is mild aortic valve stenosis with a peak velocity of 307.88 cm/s, mean gradient of 18 mmHg, and aortic valve area of 1.7cm2. 7. The aortic valve is not well visualized. Left Ventricle Technically difficult study with limited views. Regional wall motion assessment limited despite definity contrast enhancement due to poor endomyocardial border definition. Left ventricular chamber dimension is normal. Left ventricular systolic function is normal, estimated at 55-60%. There is no increased left ventricular wall thickness. The left ventricular diastolic function is grade I diastolic dysfunction. Right Ventricle Right ventricular chamber dimension is normal. Right ventricular systolic function is normal. Left Atria Left atrial chamber dimension is normal. Right Atria Right atrial chamber dimension is normal. Aortic Valve The aortic valve is not well visualized. There is mild aortic valve stenosis with a peak velocity of 307.88 cm/s, mean gradient of 18 mmHg, and aortic valve area of 1.7cm2. There is no aortic valve regurgitation. There is mild aortic valve calcification. Pulmonic Valve The pulmonic valve is not well visualized. Mitral Valve The mitral valve has normal leaflets. There is no mitral valve regurgitation. Tricuspid Valve The tricuspid valve leaflets are not well visualized. There is trace tricuspid valve regurgitation. No pulmonary hypertension, estimated pulmonary arterial systolic pressure is 18 mmHg. Pericardium/Pleural The pericardium appears not well visualized. Aorta The aortic root size at the sinus of Valsalva is normal. There is moderate-severe aortic atherosclerosis. Left Ventricular Outflow Tract Name Value Normal LVOT 2D LVOT Diameter 2.42 cm LVOT Doppler LVOT Peak Gradient 5 mmHg LVOT Mean Gradient 3 mmHg LVOT VTI 21.56 cm LVOT VTI/AV VTI Ratio 0.49 LVOT Stroke Volume 99.16 ml LVOT
--- NOTE | ~2021-09-24 | XR_ITS ---
XR chest 1V portable 09/29/2021 05:50 Indication: Respiratory failure Procedure: AP portable chest Comparison: Comparison to multiple prior studies sequentially, with oldest reviewed study dated 09/25. Findings: Cardiomegaly. Bilateral infiltrates are present throughout both lungs. Portacatheter tip in the SVC. There changes of surgical aortic valve repair. Impression: 1: Persistent diffuse bilateral infiltrates which may represent edema or pneumonia. 2: Cardiomegaly. Reviewed, dictated and finalized at location A. OAT CAPTAIN Impression: 1: Persistent diffuse bilateral infiltrates which may represent edema or pneumo yudelka. 2: Cardiomegaly.
--- NOTE | ~2021-09-24 | XR_ITS ---
EXAMINATION: XR chest 1V portable EXAM DATE: 10/01/2021 06:09 INDICATION: Respiratory failure. TECHNIQUE: Portable AP frontal chest x-ray was obtained. Comparison is made to prior examination from 09/30/2021. FINDINGS: There is a right-sided portacatheter. Aortic valve replacement. There is cardiomegaly and p ulmonary vascular congestion. Mild amount of bilateral edema or pneumonia. No sizable pleural effusio n. No pneumothorax. There are bony degenerative changes. IMPRESSION: Cardiomegaly, congestion. Mild bilateral edema or pneumonia. NSIC ENGINEER Reviewed, dictated and finalized at location A.
--- NOTE | ~2021-09-24 | CT_ITS ---
EXAMINATION: CT abdomen pelvis wo con DATE: 09/24/2021 02:58 INDICATION: Abdominal pain. Nausea and vomiting. TECHNIQUE: Computed tomography (CT) of the abdomen and pelvis was performed without intravenous contr ast. Automated exposure control and iterative reconstruction technique were employed. The dose-length product was 1834.73 mGy-cm. COMPARISON: CT abdomen and pelvis 01/17/2021, PET/CT 08/24/18 FINDINGS: The visualized portions of the lung bases demonstrate mild atelectasis. No pleural effusion . Cardiomegaly is noted. There are changes of aortic valve replacement. There are coronary artery erin cifications. No pericardial effusion. There is a port tip in right atrium. The liver is normal. The g allbladder is absent. Calcifications in the spleen are consistent with old granulomatous disease. The pancreas, adrenal glands, and kidneys are normal. There are no dilated loops of bowel. There is a 5. 3 x 2.9 cm right inguinal node with eccentric calcifications. There are changes of mesh ventral herni a repair. There is no free intraperitoneal fluid. There is severe thoracic and lumbar spondylosis. IMPRESSION: 1. Stable enlarged right inguinal lymph node with calcifications, consistent with treated lymphoma. Reviewed, dictated and finalized at location A. ATIONS AGENT IMPRESSION: 1. Stable enlarged right inguinal lymph node with calcifications, consistent wi th treated lymphoma.
--- NOTE | ~2021-09-24 | US_ITS ---
EXAMINATION: US renal BI DATE: 09/24/2021 15:03 INDICATION: Acute kidney injury TECHNIQUE: Multiple grayscale and Doppler ultrasound images of the kidneys were obtained. COMPARISON: 07/09/2019 FINDINGS: The right kidney measures 10.8 x 5.3 x 6.2 cm. The left kidney measures 10.0 x 6.4 x 5.9 cm but is not well visualized due to body habitus. The kidneys demonstrate normal parenchymal echogenic ity. There is no hydronephrosis. The bladder is not visualized due to body habitus. IMPRESSION: 1. Grossly normal kidneys without hydronephrosis. Reviewed, dictated and finalized at location A. AKER
--- NOTE | ~2021-09-24 | XR_ITS ---
EXAMINATION: XR chest 1V portable EXAM DATE: 09/30/2021 05:59 INDICATION: Respiratory failure. TECHNIQUE: Portable AP frontal chest x-ray was obtained. Comparison is made to prior examination from 09/29/2021. FINDINGS: There is a right-sided portacatheter. Aortic valve. There is cardiomegaly and pulmonary vas cular congestion. Mild amount of bilateral edema or pneumonia. No sizable pleural effusion. No pneumo thorax. There are bony degenerative changes. IMPRESSION: Cardiomegaly, congestion. Mild bilateral edema or pneumonia. Reviewed, dictated and finalized at location A. ARCH HOME ECONOMIST
--- NOTE | ~2021-09-24 | XR_ITS ---
EXAMINATION: XR chest 1V portable DATE: 09/25/2021 06:02 INDICATION: Respiratory failure. TECHNIQUE: A single frontal view of the chest was obtained. COMPARISON: Chest single view 09/24/2021 FINDINGS: There are airspace opacities in all lung zones bilaterally with a perihilar predominance. N o pleural effusion or pneumothorax. Cardiomegaly is noted. IMPRESSION: 1. Worsened diffuse lung disease, consistent with pulmonary edema versus pneumonia. 2. Cardiomegaly. Reviewed, dictated and finalized at location A. SERVICE FLOOR WORKER IMPRESSION: 1. Worsened diffuse lung disease, consistent with pulmonary edema versus pneumo yudelka. 2. Cardiomegaly.
--- NOTE | ~2021-09-24 | XR_ITS ---
EXAMINATION: XR chest 1V portable DATE: 09/24/2021 01:49 INDICATION: Cough. TECHNIQUE: A single frontal view of the chest was obtained. COMPARISON: Chest single view 07/11/2020, CT abdomen and pelvis 09/24/2019 FINDINGS: The patient is rotated to his left. There is mild atelectasis in the mid and lower lung zon es. No pleural effusion or pneumothorax. Cardiomegaly is noted. There is a right internal jugular por t with tip in superior vena cava. There are changes of aortic valve replacement. IMPRESSION: 1. Mild atelectasis in the mid and lower lung zones. 2. Cardiomegaly. Reviewed, dictated and finalized at location A. EACH TEAM MEMBER
--- NOTE | ~2021-09-24 | XR_ITS ---
EXAMINATION: XR chest 1V portable DATE: 09/28/2021 05:46 INDICATION: Respiratory failure TECHNIQUE: frontal view of the chest was obtained. COMPARISON: Chest radiograph dated 09/27/2021 FINDINGS: Right internal jugular central venous port catheter with distal tip at the caudal superior vena cava. Interval decrease in opacities throughout the left hemithorax with residual patchy opacities in the left mid to lower lung zones. No pneumothorax or definitive pleural effusion. Cardiomegaly. Aortic va lve repair. IMPRESSION: 1. Interval improvement in now mild opacities in the left mid and lower lung zone which could represe nt atelectasis, pneumonia or mild asymmetric pulmonary edema. 2. Cardiomegaly. Reviewed, dictated and finalized at location A. GER DELIVERY IMPRESSION: 1. Interval improvement in now mild opacities in the left mid and lower lung zo ne which could represent atelectasis, pneumonia or mild asymmetric pulmonary ed theresa. 2. Cardiomegaly.
--- NOTE | ~2021-09-24 | XR_ITS ---
EXAMINATION: XR chest 1V portable INDICATION: Respiratory failure TECHNIQUE: Portable AP chest at 0521 hours COMPARISON: 09/26/2021 FINDINGS: A right internal jugular Port-A-Cath ends with its tip in the proximal right atrium. Cardio megaly is noted. There is increased opacification of the left hemithorax which could reflect pleural effusion. Patchy opacities persist throughout all lung zones without significant change.. IMPRESSION: 1. Increasing opacification of the left hemithorax which could reflect pleural effusion. 2. Diffuse lung disease, consistent with pulmonary edema and/or pneumonia. 3. Cardiomegaly. Reviewed, dictated and finalized at location A. OCKER
--- NOTE | ~2021-09-24 | XR_ITS ---
EXAMINATION: XR chest 1V portable INDICATION: Respiratory failure TECHNIQUE: Portable AP chest at 0522 hours COMPARISON: 09/25/2021 FINDINGS: A right internal jugular Port-A-Cath and stenosis of the proximal right atrium. Cardiomegal y is noted. There is no pleural effusion or pneumothorax. Patchy airspace opacities persist throughou t all lung zones without significant change. Changes of endoluminal aortic valve replacement are note d. IMPRESSION: 1. Stable diffuse lung disease, consistent with pneumonia and/or pulmonary edema. 2. Cardiomegaly. Reviewed, dictated and finalized at location A. AND WILDLIFE SCIENTIFIC AID IMPRESSION: 1. Stable diffuse lung disease, consistent with pneumonia and/or pulmonary [place] a. 2. Cardiomegaly.
--- NOTE | ~2021-09-24 | XR_ITS ---
XR chest 2V 10/03/2021 10:58 Indication: CHF follow-up Procedure: 2 view chest Comparison: Comparison to multiple prior studies sequentially, with oldest reviewed study dated 09/28. Findings: Portacatheter tip in the SVC. There is an aortic valve replacement. Left basilar airspace d isease which may represent atelectasis or developing pneumonia. No edema, pleural effusion or pneumot horax. Impression: 1: Left basilar airspace disease which may represent atelectasis and/or developing pneumonia. Reviewed, dictated and finalized at location B. R CUTTING MACHINE OPERATOR Impression: 1: Left basilar airspace disease which may represent atelectasis and/or develop ing pneumonia.
--- NOTE | 2021-09-24 01:36 | ECG_ITS ---
Measurements Intervals [place] Rate: 72 P: 41 MN: 205 QRS: -36 QRSD: 129 T: 90 QT: 406 QTc: 447 Interpretive Statements SINUS RHYTHM LEFT AXIS DEVIATION BORDERLINE AV CONDUCTION DELAY INTRAVENTRICULAR CONDUCTION DELAY EXTENSIVE ANTERIOR INFARCT, AGE INDETERMINATE CONSIDER INFERIOR INFARCT, AGE INDETERMINATE BORDERLINE ST-T WAVE ABNORMALITY- HIGH LATERAL LEADS BASELINE ARTIFACT- I, II, AVR, V1, V3-V6 ABNORMAL ECG Electronically Signed On 09-24-2021 6:26:43 RIVET FLUNKY by Hema Emery D.O.
[2021-09-24 01:51] LABS: Basophils Absolute Auto 0.1 K/mm3 (0.0-0.1); Basophils Percent Auto 0.6 % (0.2-1.2); Eosinophils Absolute Auto 0.4 K/mm3 (0-0.3); Eosinophils Percent Auto 3.5 % (0-4.4); Hematocrit 36.2 % (42.0-52.0); Hemoglobin 10.6 g/dL (14.0-18.0); Immature Granulocyte Absolute 0.06 K/mm3 (0.00-0.031); Immature Granulocyte Percent A 0.6 % (0-0.5); Lymphocytes Absolute Auto 1.27 K/mm3 (0.9-3.2); Lymphocytes Percent Auto 12.9 % (18.3-44.2); Mean Corpuscular HGB Conc 29.3 g/dl (32-36); Mean Corpuscular Hemoglobin 26.5 pg (26-34); Mean Corpuscular Volume 90.5 fl (80-100); Mean Platelet Volume 10.8 fl (7.4-10.4); Monocytes Absolute Auto 0.7 K/mm3 (0.1-0.6); Monocytes Percent Auto 7.1 % (2.6-8.5); Neutrophils Absolute Auto 7.4 K/mm3 (1.3-6.7); Neutrophils Percent Auto 75.3 % (45.5-73.1); Platelet Count Result 162 k/mm3 (150-375); Red Cell Distribution Width 17.1 % (11.5-14.5); White Blood Count 9.9 K/mm3 (4.5-10.0)
[2021-09-24 01:52] LABS: Platelet Estimate Adequate (Adequate)
[2021-09-24 01:53] LABS: Hypochromasia 1+ (NORMAL)
[2021-09-24 02:03] LABS: INR 1.1; Partial Thromboplastin Time 30.9 SECONDS (22.3-36.8); Prothrombin Time 13.8 Seconds (11.1-14.7)
--- NOTE | 2021-09-24 02:04 | ED.GENADULT ---
HPI - General Adult General Chief complaint: Nausea/Vomiting/Diarrhea Stated complaint: DIARRHEA, WEAKNESS Time Seen by Provider: 09/24/21 01:28 Source: RN notes reviewed History of Present Illness HPI narrative: Patient presents emergency department from home via EMS for weakness. Patient states has been feeling more weak over the past 2 days states he was walking back from the bathroom today when he fell like his legs were getting give out states he went down on his knees but not fall fully to the ground did not strike his head at that time EMS was called he states he has had some diarrhea today he states he had some nausea and vomiting yesterday but none today he denies any fevers or chills chest pain shortness of breath or any other symptoms he was noted to be hypoxic on room air in the 80s he states he is post be wearing a CPAP but his CPAP machine is currently broken he has been waiting for placement parts Related Data Home Medications Medication Instructions Recorded Confirmed aspirin 81 mg PO DAILY 05/31/19 09/24/21 diphenoxylate-atropine 2.5 1 tablet PO QID PRN 05/03/20 09/24/21 mg-0.025 mg tablet furosemide 40 mg tablet 40 mg PO DAILY tablet 01/10/21 09/24/21 atorvastatin 80 mg PO HS 09/24/21 09/24/21 clopidogrel [Plavix] 75 mg PO DAILY 09/24/21 09/24/21 fluoxetine 20 mg PO HS 09/24/21 09/24/21 gabapentin 600 mg PO QAM AND QHS 09/24/21 09/24/21 insulin lispro [Humalog KwikPen See Rx Instructions .ROUTE .COMPLEX 09/24/21 09/24/21 Insulin] metoprolol tartrate 25 mg PO BID 09/24/21 09/24/21 nitroglycerin See Rx Instructions .ROUTE 09/24/21 09/24/21 .COMPLEX PRN omega 5-hqt-dgp-fish oil [Fish Oil] 1 cap PO BID 09/24/21 09/24/21 quetiapine 50 mg PO HS 09/24/21 09/24/21 sitagliptin-metformin [Janumet] 1 tablet PO BID 09/24/21 09/24/21 trazodone 100 mg PO HS 09/24/21 09/24/21 Allergies Allergy/AdvReac Type Severity Reaction Status Date / Time No Known Allergies Allergy Verified 09/24/21 11:49 Review of Systems Review of Systems: Gen.: Denies fevers or chills Eyes: Denies eye pain or visual change ENT: Denies congestion Respiratory: Ports shortness of breath CV: Denies chest pain or palpitations GI: Denies abdominal pain reports nausea vomiting yesterday reports diarrhea today Musculoskeletal: Denies back pain or muscle pain Neuro: See HPI Skin: Denies rash Except as documented, all other systems reviewed and negative [facility] Past Medical History Medical History (Updated 09/24/21 @ 11:08 by Moreno Rios MD) Acute respiratory failure Hospitalization June 06 through July 20, 2019 intubated 07/07/2019 through 07/14/2019 due to sepsis with septic shock, fluid overload, cellulitis with abscess of the left buttock Aortic stenosis severe on echocardiogram July 2019 Arthritis CAD (coronary artery disease) of artery bypass graft With history of stents x4. Dr. Ribeiro Cataract CHF (congestive heart failure) Echocardiogram 02/27: EF of 35%, LVH, akinetic apical segment, Aortic valve not well visualized CKD (chronic kidney disease) Depression Diabetes Follicular low grade B-cell lymphoma GERD (gastroesophageal reflux disease) Hypercholesterolemia Hypertension Mitral valve prolapse Morbid (severe) obesity due to excess calories Morbid obesity with BMI of 60.0-69.9, adult Non-Hodgkin lymphoma He is a patient of Dr. Oliveira. Peripheral neuropathy Pulmonary hypertension Moderate on echocardiogram from 2018 Restless legs syndrome Sleep apnea Patient does not use a CPAP at nighttime. Unspecified background retinopathy Surgical History Surgical History H/O arthroscopic knee surgery H/O cardiac catheterization H/O inguinal hernia repair History of appendectomy Hx of tonsillectomy S/P TAVR (transcatheter aortic valve replacement) Family History Family History Father Heart disea
[2021-09-24 02:08] LABS: Alanine Aminotransferase 17 U/L (4-50); Albumin Level 3.5 g/dL (3.5-5.1); Alkaline Phosphatase 54 U/L (38-126); Anion Gap 9 mmol/L (8-16); Aspartate Amino Transferase 20 U/L (17-59); Bilirubin,Total 0.2 mg/dL (0.2-1.3); Blood Urea Nitrogen 39 mg/dL (9-20); Calcium 8.1 mg/dL (8.4-10.2); Carbon Dioxide 24 mmol/L (22-30); Chloride 107 mmol/L (98-107); Estimated CRCL calculation 37 ml/min; Estimated Glomerular Filt Rate 23; Glucose 140 mg/dL (65-110); Lipase 164 U/L (23-300); Magnesium 1.3 mg/dL (1.6-2.3); Potassium 4.4 mmol/L (3.4-5.0); Sodium 140 mmol/L (137-145)
[2021-09-24 02:11] LABS: Lactic Acid Reflex 2.2 mmol/L (0.7-2.1)
[2021-09-24 02:58] LABS: Base Excess ABG -4.5 mEq/l (+/-2.0); Fractional Inspired Oxygen 36 %; HCO3 ABG 26.3 mEq/l (22.0-26.0); Oxygen Content ABG 16.1 %vol (16.0-22.0); Oxygen Saturation ABG 93.7 % (95.0-100.0); Oxyhemoglobin 93.2 % THb (90.0-100.0); PO2 ABG 91.4 mmHg (80.0-100.0); PO2 FiO2 Ratio Arterial Blood 2.54 %; Total Hemoglobin 12.2 g/dL (12.0-18.0)
[2021-09-24 03:00] LABS: PCO2 ABG 82.1 mmHg (35.0-45.0)
[2021-09-24] MEDS: SODIUM CHLORIDE 0.9% IV 1,000 ML 999 ML IV CONT (03:00)
[2021-09-24 03:01] LABS: Device NASAL CANNULA; Modified Allen's Test Pass; Site Drawn LEFT RADIAL; pH ABG 7.124 (7.350-7.450)
[2021-09-24 03:07] LABS: SARS-CoV-2 RNA PCR Negative
[2021-09-24] MEDS: MAGNESIUM SULF 2 GM/WATER 50ML 2 GM/50 ML BAG IVPB (03:39)
[2021-09-24 04:19] LABS: Add Urine Microscopic? NO; Appearance Urine Clear (Clear); Bilirubin Urine Negative (Negative); Blood Urine Negative (Negative); Color Urine Yellow (Yellow); Glucose Urine UA Negative (Negative); Ketones Urine Negative (Negative); Leukocyte Esterase Ur Negative LEU/UL (Negative); Nitrate Urine Negative (Negative); Protein Urine Negative (Negative); Specific Grav Ur 1.014 (1.001-1.035); Urobilinogen Urine Negative mg/dL (<2.0)
[2021-09-24 04:36] LABS: Alveolar/Arterial O2 Gradient 107.4 mmHg; Base Excess ABG -5.8 mEq/l (+/-2.0); Fractional Inspired Oxygen 40 %; Oxygen Content ABG 15.7 %vol (16.0-22.0); Oxygen Saturation ABG 92.2 % (95.0-100.0); Oxyhemoglobin 92.4 % THb (90.0-100.0); PO2 ABG 85.3 mmHg (80.0-100.0); PO2 FiO2 Ratio Arterial Blood 2.13 %
[2021-09-24 04:38] LABS: Modified Allen's Test Unable to perform; PCO2 ABG 80.4 mmHg (35.0-45.0); Site Drawn LEFT RADIAL; pH ABG 7.111 (7.350-7.450)
[2021-09-24 04:39] LABS: Device BIPAP; Expiratory Pressure 6 cmH2O; Inspiratory Pressure 12 cmH2O
[2021-09-24 04:58] LABS: Reflex Lactic Acid Yes or No Add Lactic
[2021-09-24 05:27] LABS: Lactic Acid 1.1 mmol/L (0.7-2.1)
[2021-09-24] MEDS: SODIUM CHLORIDE 0.9% IV 1,000 ML 80 ML IV CONT ×2 (06:34→20:11)
[2021-09-24 06:51] LABS: Alveolar/Arterial O2 Gradient 114.6 mmHg; Base Excess ABG -5.2 mEq/l (+/-2.0); Carboxyhemoglobin 0.9 % THb (0-2.0); Fractional Inspired Oxygen 40 %; HCO3 ABG 25.3 mEq/l (22.0-26.0); Methemoglobin ABG 0.2 %THb (0-1.5); Oxygen Content ABG 16.5 %vol (16.0-22.0); Oxygen Saturation ABG 91.9 % (95.0-100.0); Oxyhemoglobin 92.9 % THb (90.0-100.0); PO2 ABG 82.2 mmHg (80.0-100.0); PO2 FiO2 Ratio Arterial Blood 2.05 %; Total Hemoglobin 12.6 g/dL (12.0-18.0)
[2021-09-24 06:56] LABS: Device BIPAP; Modified Allen's Test Pass; PCO2 ABG 76.9 mmHg (35.0-45.0); Site Drawn RIGHT RADIAL; pH ABG 7.135 (7.350-7.450)
[2021-09-24 06:57] LABS: Expiratory Pressure 6 cmH2O; Inspiratory Pressure 14 cmH2O
[2021-09-24] MEDS: SODIUM CHLORIDE 0.9% IV 500 ML 999 ML IV CONT (07:33)
--- NOTE | 2021-09-24 07:54 | PC.NURSE ---
Spoke to Dr. Tellez to give update on patient's blood pressures. MAP has been [address] Tellez, do not begin Levophed at this time.
[2021-09-24 10:08] LABS: Carboxyhemoglobin 0.8 % THb (0-2.0); Fractional Inspired Oxygen 21 %; HCO3 ABG 25.8 mEq/l (22.0-26.0); Methemoglobin ABG 0.2 %THb (0-1.5); Oxygen Content ABG 16.9 %vol (16.0-22.0); Oxygen Saturation ABG 94.8 % (95.0-100.0); Oxyhemoglobin 94.8 % THb (90.0-100.0); PO2 ABG 93.4 mmHg (80.0-100.0); PO2 FiO2 Ratio Arterial Blood 4.45 %; Reduced Hemoglobin 4.2 %THb (0-5.0); Total Hemoglobin 12.6 g/dL (12.0-18.0)
[2021-09-24 10:09] LABS: PCO2 ABG 72.6 mmHg (35.0-45.0); pH ABG 7.169 (7.350-7.450)
[2021-09-24 10:10] LABS: Device BIPAP; Modified Allen's Test Pass; Site Drawn RIGHT RADIAL
[2021-09-24 10:11] LABS: Expiratory Pressure 8 cmH2O; Inspiratory Pressure 18 cmH2O
--- NOTE | 2021-09-24 10:32 | PM.IMHP ---
H&P: HPI History of Present Illness Date/Time: 09/24/21 10:32 Chief Complaint: Weakness Narrative: 71yo male with JOE, CHF, pulmonary HTN and DM here for weakness. Patient states he has been feeling weak and tired for the past few days. He had similar symptoms a few months ago this resolved on its own. He has been without his CPAP for few months. He denies any fever, chills, headache, vision changes, odynophagia, dysphagia, anosmia or dysgeusia. He has had the Pfizer vaccine x2 but not a booster that he is due for. He is up-to-date on his influenza. He denies any chest pain, palpitations, shortness of breath or URI symptoms. He has had a nonproductive cough recently. He developed nausea last night but no vomiting. He has also had 2 loose stools over the past 24 hours. No melena or hematochezia. No abdominal pain or back pain. No dysuria or hematuria. Patient states his symptoms were mostly weakness. While walking in his bedroom last evening, he became weak and fell to the floor on his knees. There is no head trauma or loss of consciousness. He does not have focal weakness but more diffuse weakness. He was able to stand and walk. He did take his medications prior to presenting to the emergency room on the financial services agent hours of admission. In the emergency room patient was hypotensive at 68/23 and 87% on room air. Respiratory rate was elevated to 28. EKG showed normal sinus rhythm with evidence of anterior and inferior infarcts. He also had borderline ST T wave changes in the high lateral leads. Chest x-ray showing mild atelectasis and cardiomegaly. CT of the abdomen and pelvis showing no acute findings. White count was normal. Hemoglobin is 10.6. BUN was 39 with a creatinine 2.7. Magnesium was low 1.3. LFTs are normal. Lipase was normal. Urinalysis was clear. COVID was negative. ABG showed 7.12/82/90 on 4 L. He was placed on BiPAP. He was given 1L of fluid. Magnesium was replaced. Nebulizer treatments given. Levophed was ordered but not given because his blood pressure improved. Pen Rider made multiple adjustments to the patient's BiPAP and his most recent ABG showing 7.17/72/93. Patient is alert but confused so history is suspect. Patient was admitted to the IMU for further care. Review of Systems Review of Systems: All systems reviewed & are unremarkable except as noted in HPI and below (Patient is confused so history is suspect) [facility] Past Medical History Medical History (Updated 09/24/21 @ 11:08 by Moreno Rios MD) Acute respiratory failure Hospitalization June 06 through July 20, 2019 intubated 07/07/2019 through 07/14/2019 due to sepsis with septic shock, fluid overload, cellulitis with abscess of the left buttock Aortic stenosis severe on echocardiogram July 2019 Arthritis CAD (coronary artery disease) of artery bypass graft With history of stents x4. Dr. Ribeiro Cataract CHF (congestive heart failure) Echocardiogram 02/27: EF of 35%, LVH, akinetic apical segment, Aortic valve not well visualized CKD (chronic kidney disease) Depression Diabetes Follicular low grade B-cell lymphoma GERD (gastroesophageal reflux disease) Hypercholesterolemia Hypertension Mitral valve prolapse Morbid (severe) obesity due to excess calories Morbid obesity with BMI of 60.0-69.9, adult Non-Hodgkin lymphoma He is a patient of Dr. Oliveira. Peripheral neuropathy Pulmonary hypertension Moderate on echocardiogram from 2018 Restless legs syndrome Sleep apnea Patient does not use a CPAP at nighttime. Unspecified background retinopathy Surgical History Surgical History H/O arthroscopic knee surgery H/O cardiac catheterization H/O inguinal hernia repair History of appendectomy Hx of tonsillectomy S/P TAVR (transcatheter aortic valve replacement) Family History Family History Father Oumar
--- NOTE | 2021-09-24 10:55 | ADMGEN ---
This patient, Pascual Kowalski, was admitted to IMU Room 203-01. Patient/family oriented to hospital policies and general routines including ID bracelet, bed and alarms, visiting hours, pain management, procedures, bathroom and other care routines, personal items, smoking policy, room service/diet, and visiting hours. Information on how to activate the Rapid Response Team has been discussed. Patient/Family are encouraged to report perceived risks to care and to ask questions if they do not understand what they are told or what they should do.
--- NOTE | 2021-09-24 12:10 | PC.NURSE ---
call to pt's Puja per pt's request to confirm home meds, she reviewed the bottles with drugs and dosages
[2021-09-24] MEDS: ENOXAPARIN 40 MG/0.4 ML SYRINGE SUB-Q (12:16)
[2021-09-24 12:42] LABS: Glucose Point of Care 139 mg/dl (65-105)
[2021-09-24] MEDS: PERFLUTREN LIPID MICROSPHERES 1.5 ML VIAL DILUTED TO 10 ML TOTAL VOLUME IV PUSH (13:36)
--- NOTE | 2021-09-24 13:37 | IVDEFINITY ---
Prior to administration of IV Definity the patient was educated on the risks and benefits of the imaging enhancing agent including potential adverse side effects. The patient verbalized understanding. Allergies were verified. No exclusion criteria were identified and at least one of the following inclusion criteria were met: 1) physician request, 2) patient technically difficult to image (per the [place] [employer] Echocardi[employer] guidelines of two or more segments not discernable within the apical view), or 3) questionable left ventricular function. ?
[2021-09-24 15:56] LABS: Alveolar/Arterial O2 Gradient 113.3 mmHg; Base Excess ABG -6.2 mEq/l (+/-2.0); Fractional Inspired Oxygen 40 %; HCO3 ABG 22.9 mEq/l (22.0-26.0); Oxygen Content ABG 16.8 %vol (16.0-22.0); Oxygen Saturation ABG 95.8 % (95.0-100.0); Oxyhemoglobin 95.7 % THb (90.0-100.0); PO2 ABG 99.9 mmHg (80.0-100.0); Total Hemoglobin 12.4 g/dL (12.0-18.0)
[2021-09-24 16:00] LABS: PCO2 ABG 62.6 mmHg (35.0-45.0); pH ABG 7.181 (7.350-7.450)
[2021-09-24 16:01] LABS: Device NON-INVASIVE VENT; Modified Allen's Test Pass; Non-Invasive Expiratory Pressure 8 CMH2O; Non-Invasive Inspiratory Pressure 18 CMH2O; Non-Invasive Vent Rate 26 /MIN; Site Drawn LEFT RADIAL
[2021-09-24 16:32] LABS: Glucose Point of Care 136 mg/dl (65-105)
[2021-09-24] MEDS: GABAPENTIN 300 MG CAPSULE 600 MG PO ×2 (18:11→20:01)
[2021-09-24] MEDS: FLUoxetine HCL 20 MG CAPSULE PO (20:01)
[2021-09-24] MEDS: PRAMIPEXOLE 1 MG TABLET PO (20:01)
[2021-09-24] MEDS: ATORVASTATIN 40 MG TABLET 80 MG PO (20:01)
[2021-09-24] MEDS: traZODone HCL 50 MG TABLET 100 MG PO (20:01)
[2021-09-24] MEDS: QUEtiapine FUMARATE 25 MG TABLET 50 MG PO (20:01)
[2021-09-24] MEDS: CENTRAL LINE FLUSH 10 ML IV PUSH (20:02)
[2021-09-25] VITALS (24 sets, daily range): BP systolic 98–166; BP diastolic 33–103; PULSE 77–104; RESP 17–28; TEMP 36.5–37.6; O2SAT 91–99
[2021-09-25 00:50] LABS: Glucose Point of Care 162 mg/dl (65-105)
[2021-09-25 04:38] LABS: Alveolar/Arterial O2 Gradient 128.3 mmHg; Base Excess ABG -5.7 mEq/l (+/-2.0); Fractional Inspired Oxygen 40 %; Oxygen Content ABG 18.7 %vol (16.0-22.0); Oxygen Saturation ABG 92.2 % (95.0-100.0); Oxyhemoglobin 92.8 % THb (90.0-100.0); PO2 ABG 79.7 mmHg (80.0-100.0); PO2 FiO2 Ratio Arterial Blood 1.99 %; Total Hemoglobin 14.3 g/dL (12.0-18.0)
[2021-09-25 04:39] LABS: pH ABG 7.172 (7.350-7.450)
[2021-09-25 04:40] LABS: PCO2 ABG 67.1 mmHg (35.0-45.0)
[2021-09-25 04:41] LABS: Device NON-INVASIVE VENT; Modified Allen's Test Pass; Non-Invasive Inspiratory Pressure 18 CMH2O; Non-Invasive Vent Rate 24 /MIN; Site Drawn RIGHT RADIAL
[2021-09-25 04:42] LABS: Non-Invasive Expiratory Pressure 6 CMH2O
--- NOTE | 2021-09-25 04:51 | PC.NURSE ---
Addendum entered by Mejia Drake RN 09/25/21 05:02: 05:00 Attempted to call hospitalist with critical blood gas result. Awaiting return phone call. Will attempt another call in 10-15 minutes. Original Note: 04:45 Attempted to call hopitalist with critical blood gas result. Awaiting return phone call. If not received within 10-15 minutes, will call again.
[2021-09-25 05:04] LABS: Basophils Absolute Auto 0.1 K/mm3 (0.0-0.1); Basophils Percent Auto 0.6 % (0.2-1.2); Eosinophils Absolute Auto 0.1 K/mm3 (0-0.3); Eosinophils Percent Auto 0.8 % (0-4.4); Hematocrit 35.4 % (42.0-52.0); Hemoglobin 10.3 g/dL (14.0-18.0); Immature Granulocyte Absolute 0.13 K/mm3 (0.00-0.031); Immature Granulocyte Percent A 1.3 % (0-0.5); Lymphocytes Absolute Auto 0.78 K/mm3 (0.9-3.2); Lymphocytes Percent Auto 7.6 % (18.3-44.2); Mean Corpuscular HGB Conc 29.1 g/dl (32-36); Mean Corpuscular Hemoglobin 26.5 pg (26-34); Mean Platelet Volume 10.6 fl (7.4-10.4); Monocytes Absolute Auto 0.6 K/mm3 (0.1-0.6); Monocytes Percent Auto 6.3 % (2.6-8.5); Neutrophils Absolute Auto 8.5 K/mm3 (1.3-6.7); Neutrophils Percent Auto 83.4 % (45.5-73.1); Platelet Count Result 152 k/mm3 (150-375); Red Blood Count 3.89 M/mm3 (4.6-6.20); Red Cell Distribution Width 17.3 % (11.5-14.5); White Blood Count 10.2 K/mm3 (4.5-10.0)
[2021-09-25 05:11] LABS: Alanine Aminotransferase 15 U/L (4-50); Albumin Level 3.6 g/dL (3.5-5.1); Alkaline Phosphatase 58 U/L (38-126); Anion Gap 9 mmol/L (8-16); Aspartate Amino Transferase 21 U/L (17-59); Bilirubin,Total 0.4 mg/dL (0.2-1.3); Blood Urea Nitrogen 42 mg/dL (9-20); Calcium 8.2 mg/dL (8.4-10.2); Carbon Dioxide 22 mmol/L (22-30); Chloride 109 mmol/L (98-107); Estimated CRCL calculation 38 ml/min; Estimated Glomerular Filt Rate 23; Glucose 157 mg/dL (65-110); Magnesium 1.7 mg/dL (1.6-2.3); Phosphorus 4.9 mg/dL (2.5-4.5); Potassium 5.1 mmol/L (3.4-5.0); Sodium 140 mmol/L (137-145)
[2021-09-25 05:22] LABS: Hemoglobin A1C 7.1 % (<5.7)
[2021-09-25 05:39] LABS: Iron 46 ug/dL (49-181)
[2021-09-25 05:48] LABS: Percent Iron Saturation 12 % (20-50)
[2021-09-25] MEDS: SODIUM CHLORIDE 0.9% IV 1,000 ML 80 ML IV CONT (05:54)
[2021-09-25] MEDS: CENTRAL LINE FLUSH 10 ML IV PUSH ×3 (05:55→21:16)
[2021-09-25 06:14] LABS: Ferritin 9.74 ng/mL (11.1-264)
--- NOTE | 2021-09-25 10:20 | PM.IMPN ---
Progress Note: A&P Assessment and Plan (1) Acute respiratory failure with hypercapnia: Code(s): J96.02 - Acute respiratory failure with hypercapnia Status: Acute Assessment and Plan: Patient presents with weakness and found to have acute respiratory failure with hypercarbia. Most likely related to being off his noninvasive ventilation at home. With frequent adjustments of the BiPAP, pH has improved 7.18 but still critical. PCO2 has improved to 67. Lactic acid level was slightly elevated at 2.2 but normalized on repeat. COVID was negative. Chest x-ray relatively clear but today was reviewed and showing diffuse disease. Will continue BiPAP for now. pCO2 better overall so suspect related to combination of resp and metabolic process. Repeat LA but possibly from his renal failure given that his serum bicarb is not compensated. Add Bicarb. Discussed with restaurant crew. Pulmonary consult. 45 minutes spent on critical care time (2) Acute hypotension: Code(s): I95.9 - Hypotension, unspecified Status: Acute Assessment and Plan: Blood pressure was 68/23 on admission. Probably accurate due to the similar findings on repeat measurements. With IV fluids, blood pressure has improved. Etiology unclear but sepsis seems less likely. He is not overly anemic to suggest acute blood loss. Consider cardiogenic but Echo showing EF 55-60% and Grade I Diastolic Dysfunction. He has acute kidney injury so would consider dehydration more likely given the marked improvement with IV fluids. Antihypertensive medications remain on hold. Will continue to monitor blood pressure closely in the IMU. BCx NGTD. CXR as mentioned above. Stop IV fluids. Lasix once. Add abx for possible PNA. Repeat Lactic acid. (3) Acute renal insufficiency: Code(s): N28.9 - Disorder of kidney and ureter, unspecified Status: Acute Assessment and Plan: On admission, creatinine was 2.7 which is above his baseline. Patient may be having episodes of hypotension at home resulting in his weakness. Hypotension could be related to his medications. Hypotension also may be causing ATN resulting in the acute kidney injury. CT scan shows kidneys are normal. Renal ultrasound normal. Nephrology consult. Stop IV fluids. Lasix once. Continue to monitor renal function. (4) Anemia: Code(s): D64.9 - Anemia, unspecified Status: Acute Assessment and Plan: B12 level low and this will be replaced. He is also noted to be iron deficient. Replace this as well with IV. Check stool guaiac. He is on Plavix and ASA. Add Protonix (5) Altered mental status: Code(s): R41.82 - Altered mental status, unspecified Status: Acute Assessment and Plan: Patient is alert and less confused today. No focal weakness to suggest CVA. Suspect this is related to his acute respiratory failure with hypercapnia. This is improving. Consider further workup if his condition does not improve as expected. We will check TSH, B12. Consider CT of the brain once he is more stable if he does not improve. (6) CKD (chronic kidney disease): Code(s): N18.9 - Chronic kidney disease, unspecified Status: Acute Assessment and Plan: Baseline renal function last year was 1.8-2.3. Creatinine this admission is above baseline as mentioned above. Continue to monitor. (7) Sleep apnea: Code(s): G47.30 - Sleep apnea, unspecified Status: Acute Assessment and Plan: Patient has untreated sleep apnea. Suspect this is worsening resulting in his above symptoms. Encouraged to be compliant with treatment. Will need to arrange for home BiPAP. Pulmonary consult. (8) Hypomagnesemia: Code(s): E83.42 - Hypomagnesemia Status: Acute Assessment and Plan: Magnesium low on admission and this was replaced. Mag 1.7 today. Continue to follow and replace as needed. (9) Type 2 diabetes mellitus with hypergly
[2021-09-25] MEDS: GABAPENTIN 300 MG CAPSULE 600 MG PO ×2 (10:43→21:16)
[2021-09-25] MEDS: ASPIRIN 81 MG ENTERIC TABLET PO (10:43)
[2021-09-25] MEDS: CLOPIDOGREL BISULFATE 75 MG TABLET PO (10:43)
[2021-09-25] MEDS: ENOXAPARIN 40 MG/0.4 ML SYRINGE SUB-Q (10:43)
--- NOTE | 2021-09-25 10:45 | ECG_ITS ---
Measurements Intervals [place] Rate: 89 P: 51 PA: 188 QRS: -21 QRSD: 108 T: 75 QT: 340 QTc: 415 Interpretive Statements SINUS RHYTHM INTRAVENTRICULAR CONDUCTION DELAY LOW QRS VOLTAGE IN PRECORDIAL LEADS ANTEROSEPTAL INFARCT, AGE INDETERMINATE BORDERLINE ST-T WAVE ABNORMALITY- HIGH LATERAL LEADS BASELINE ARTIFACT- I, III, AVL, V2, V6 ABNORMAL ECG Electronically Signed On 09-25-2021 14:19:17 MEMORY CARE DIRECTOR by Hema Emery D.O.
[2021-09-25 11:37] LABS: Alveolar/Arterial O2 Gradient 118.8 mmHg; Base Excess ABG -6.5 mEq/l (+/-2.0); Fractional Inspired Oxygen 40 %; HCO3 ABG 22.6 mEq/l (22.0-26.0); Oxygen Content ABG 15.6 %vol (16.0-22.0); Oxygen Saturation ABG 95.1 % (95.0-100.0); Oxyhemoglobin 95.1 % THb (90.0-100.0); PO2 ABG 94.3 mmHg (80.0-100.0); PO2 FiO2 Ratio Arterial Blood 2.36 %; Total Hemoglobin 11.6 g/dL (12.0-18.0)
[2021-09-25 11:39] LABS: Device BIPAP; Expiratory Pressure 8 cmH2O; Inspiratory Pressure 20 cmH2O; Modified Allen's Test Pass; PCO2 ABG 62.7 mmHg (35.0-45.0); Site Drawn RIGHT RADIAL; pH ABG 7.174 (7.350-7.450)
[2021-09-25] MEDS: ALBUTEROL SULFATE NEB 2.5 MG/3 ML INH 1.25 MG INHALATION (12:18)
[2021-09-25] MEDS: IPRATROPIUM BR 0.02% INH SOLN 0.5 MG/2.5 ML VIAL INHALATION (12:19)
--- NOTE | 2021-09-25 12:23 | WPDCNINT ---
Assessment and Plan Assessment and plan (1) Acute respiratory failure with hypercapnia: Code(s): J96.02 - Acute respiratory failure with hypercapnia Status: Acute Assessment and Plan: Acute on chronic respiratory failure secondary to restrictive lung disease from obesity hypoventilation syndrome, CHF questionable pneumonia Patient currently on BiPAP and settings were changed by Pulmonary. He is currently in AVAPS mode Have decreased FiO2 28% ABGs ordered and pending Patient likely has baseline pCO2 in 60s and acidosis were secondary to his DAWNA He is alert oriented x3 Lasix ordered Continue NIPPV If worsens, may need intubation (2) Acute on chronic renal failure: Qualifiers: Acute renal failure type: unspecified Chronic kidney disease stage: stage 3 (moderate) Qualified Code(s): N17.9 - Acute kidney failure, unspecified; N18.3 - Chronic kidney disease, stage 3 (moderate) Code(s): N17.9 - Acute kidney failure, unspecified; N18.9 - Chronic kidney disease, unspecified Status: Acute Assessment and Plan: Patient has chronic kidney disease and history of acute kidney injury in the past from sepsis and hypertension Baseline creatinine is 1.5-2 Presented with creatinine of 2.7 He has received IV fluids but creatinine remains unchanged Hold further IV fluids due to concern of volume overload Lasix ordered (3) Severe aortic stenosis: Code(s): I35.0 - Nonrheumatic aortic (valve) stenosis Status: Acute Assessment and Plan: Status post TAVR in 2020 (4) CHF (congestive heart failure): Code(s): I50.9 - Heart failure, unspecified Status: Chronic Assessment and Plan: EF of 35% on last echo Lasix IV given. Will order repeat dose later today BNP is ordered (5) Elevated troponin: Code(s): R77.8 - Other specified abnormalities of plasma proteins Status: Acute Assessment and Plan: Patient chest pain-free and has history of persistently elevated troponin in the past He does have coronary disease status post multiple PCIs EKG reviewed Cardiology has been consulted Continue aspirin statin Plavix (6) CAD (coronary artery disease): Code(s): I25.10 - Atherosclerotic heart disease of [place] coronary artery without angina pectoris Status: Acute Assessment and Plan: PCI in 2009, PCI of InStent restenoses in 2020 (7) Aortic stenosis: Qualifiers: Cardiac valve disease etiology: etiology unspecified Qualified Code(s): I35.0 - Nonrheumatic aortic (valve) stenosis Code(s): I35.0 - Nonrheumatic aortic (valve) stenosis Status: Acute Assessment and Plan: Status post TAVR in 2020 at [facility] (8) Type 2 diabetes mellitus with hyperglycemia: Qualifiers: Diabetes mellitus intermediate insulin use: with intermediate use Qualified Code(s): E11.65 - Type 2 diabetes mellitus with hyperglycemia; Z79.4 - skilled nursing (current) use of insulin Code(s): E11.65 - Type 2 diabetes mellitus with hyperglycemia Status: Acute Assessment and Plan: Sliding scale insulin (9) Lymphoma: Code(s): C85.90 - Non-Hodgkin lymphoma, unspecified, unspecified site Status: Acute Assessment and Plan: Chemotherapy till 08/2018 radiation till 09/2018 Maintenance chemotherapy was started in January 2019 but discontinued in March 2019 due to recurrent chest pains (10) DVT prophylaxis: Code(s): Z29.9 - Encounter for prophylactic measures, unspecified Status: Acute Assessment and Plan: Lovenox (11) Hypotension: Code(s): I95.9 - Hypotension, unspecified Status: Acute Assessment and Plan: Blood pressure is adequate at this time but is on the softer side. Lasix is ordered volume overload He may need vasopressors support He is afebrile and WBCs normal He is on empiric antibiotics Blood cultures have been sent Since he now has a Hal Palma
--- NOTE | 2021-09-25 12:45 | PM.CNPUL ---
Assessment and Plan Assessment and plan (1) Acute respiratory failure with hypercapnia: Code(s): J96.02 - Acute respiratory failure with hypercapnia Status: Acute Assessment and Plan: 71-year-old man with morbid obesity, history of obstructive sleep apnea on no treatment presented with weakness and hypotension. He was found to have acute on chronic hypercapnic respiratory failure as well as metabolic acidosis. the patient's respiratory status worsened over the last 24 hours as chest x-ray showed bilateral infiltrates, most likely related to congestive heart failure. Despite using high minute ventilation via BiPAP support, the patient remained acidotic and hypercapnic. His troponin was elevated. Patient was transferred to the intensive care unit for further treatment. The case was discussed with the patient's hospitalist. (2) Congestive heart failure: Qualifiers: Heart failure chronicity: unspecified Heart failure type: unspecified Qualified Code(s): I50.9 - Heart failure, unspecified Code(s): I50.9 - Heart failure, unspecified Status: Acute (3) Acute renal insufficiency: Code(s): N28.9 - Disorder of kidney and ureter, unspecified Status: Acute (4) JOE (obstructive sleep apnea): Code(s): G47.33 - Obstructive sleep apnea (adult) (pediatric) Status: Acute History of Present Illness History of Present Illness Consult date: 09/25/21 Chief complaint: acute respiratory failure with hypercapnia,acute r Narrative: This 71-year-old man was hospitalized yesterday with weakness. The patient has multiple medical problems including morbid obesity, obstructive sleep apnea diabetes mellitus coronary artery disease status post PCI to LAD, history of non-Hodgkin's lymphoma, obstructive sleep apnea, aortic stenosis. The patient presented with weakness. He has obstructive sleep apnea but has not been using CPAP. He had no fever chills hemoptysis chest pain palpitations or shortness of breath. He also complained of some nausea but no vomiting. In the emergency room the patient was found to to be hypotensive with a blood pressure 68/23 and also hypoxemic with oxygen saturation 87% on room air. He was tachypneic. His initial chest x-ray showed essentially clear lungs. EKG showed normal sinus rhythm with evidence of anterior and inferior infarcts. He also had borderline ST/T changes. The patient was found to have hypercapnic respiratory failure with initial blood gases showing a pH of 7.12, pCO2 of 82 and a bicarbonate of 26.3. The patient was placed on noninvasive ventilatory support with only minimal improvement of his blood gases. He had been on BiPAP support with expiratory pressure of around 20, respiratory rate of 26; arterial blood gases on those settings showed pH of 7.17 pCO2 of 62 and bicarbonate of 22. The patient was BiPAP dependent and could not provide any more information about his recent illness. Patient was also hydrated with an I / O balance been positive by approximately 3 L over the last 24 hours. Repeat chest x-ray earlier today showed a new infiltrates bilaterally possibly related to congestive heart failure. Review of Systems Review of Systems: All systems reviewed & are unremarkable except as noted in HPI and below (HPI) [facility] Past Medical History Medical History Acute respiratory failure Hospitalization June 06 through July 20, 2019 intubated 07/07/2019 through 07/14/2019 due to sepsis with septic shock, fluid overload, cellulitis with abscess of the left buttock Aortic stenosis severe on echocardiogram July 2019 Arthritis CAD (coronary artery disease) of artery bypass graft With history of stents x4. Dr. Ribeiro Cataract CHF (congestive heart failure) Echocardiogram 02/27: EF of 35%, LVH, akinetic apical segment, Aortic valve not well visualized CKD (chronic kidney disease) Depression
[2021-09-25 13:00] LABS: Alveolar/Arterial O2 Gradient 41.4 mmHg; Base Excess ABG -5.8 mEq/l (+/-2.0); Fractional Inspired Oxygen 28 %; HCO3 ABG 22.3 mEq/l (22.0-26.0); Oxygen Content ABG 15.5 %vol (16.0-22.0); Oxygen Saturation ABG 95.3 % (95.0-100.0); Oxyhemoglobin 94.9 % THb (90.0-100.0); PCO2 ABG 56.4 mmHg (35.0-45.0); PO2 ABG 91.7 mmHg (80.0-100.0); PO2 FiO2 Ratio Arterial Blood 3.27 %; Total Hemoglobin 11.5 g/dL (12.0-18.0)
[2021-09-25 13:02] LABS: Device BIPAP; Modified Allen's Test Pass; Site Drawn RIGHT RADIAL; pH ABG 7.215 (7.350-7.450)
[2021-09-25 13:03] LABS: Expiratory Pressure 8 cmH2O
[2021-09-25] MEDS: FUROSEMIDE INJ 40 MG/4 ML VIAL 20 MG IV PUSH (13:10)
--- NOTE | 2021-09-25 13:27 | PC.NURSE ---
This patient, Pascual Kowalski, was received from [ [phone]] on 09/25/21 at 1327. Patient/family oriented to unit policies and routines. Report received from SID Worrell @ [phone]
[2021-09-25 13:30] LABS: Glucose Point of Care 150 mg/dl (65-105)
[2021-09-25] MEDS: PANTOPRAZOLE SODIUM IV 40 MG VIAL IV PUSH ×2 (13:40→21:16)
[2021-09-25 14:08] LABS: Lactic Acid Reflex 0.7 mmol/L (0.7-2.1)
[2021-09-25 14:17] LABS: NT Pro B Type Natriuretic Pept 3020 pg/mL (5-100)
[2021-09-25 14:41] LABS: Procalcitonin 0.2 ng/mL
--- NOTE | 2021-09-25 15:22 | PM.CNCAR ---
Assessment and Plan Assessment and plan (1) Non-ST elevation AK (NSTEMI): Code(s): I21.4 - Non-ST elevation (NSTEMI) myocardial infarction Status: Acute Assessment and Plan: Patient with history of CAD with prior myocardial infarction previous stent and or PCI. Elevation in troponin complicated by hypotension presentation, acute on chronic hypoxic and hypercarbic respiratory failure, acute on chronic renal failure and underlying CAD. Twelve lead EKG largely unchanged, no chest pain a giving worsening respiratory failure and elevated troponin recommend heparin infusion. Will discontinue enoxaparin for DVT prophylaxis. Depending on troponin trend, patient clinical status coronary angiography may be consideration. However, in light of acute on chronic renal failure respiratory distress patient needs to be further stabilized and close observation of renal function due to high risk for further deterioration with contrast exposure. Patient is currently stabilizing and without acute anginal symptoms at this time. Discontinue enoxaparin. Heparin infusion ordered. Continue aspirin, clopidogrel. Follow H&H. Repeat 12 lead EKG in a.m.. EF preserved on echocardiogram. Overall, patient is very complicated and high risk for cardiovascular complications given chronic troponin elevation. However, given his history and trend in troponin elevation will more aggressively manage for non ST-elevation AK. (2) Acute on chronic heart failure with preserved ejection fraction: Code(s): I50.33 - Acute on chronic diastolic (congestive) heart failure Status: Acute Assessment and Plan: Complicated by underlying CAD, acute hypoxic and hypercarbic respiratory failure, severe hypotension at presentation L improved. Cautious diuresis, monitor input and output, daily weight. Monitor renal function electrolytes closely. (3) Ddltv-zm-diulipf kidney injury: Code(s): N17.9 - Acute kidney failure, unspecified; N18.9 - Chronic kidney disease, unspecified Status: Acute Assessment and Plan: Secondary to hypotension presentation as well as acute hypoxic and hypercarbic respiratory failure. (4) Status post transcatheter aortic valve replacement (TAVR) using bioprosthesis: Code(s): Z95.3 - Presence of xenogenic heart valve Status: Acute Assessment and Plan: Aortic valve area stable, preserved function by echocardiogram. (5) Acute respiratory failure with hypoxia: Code(s): J96.01 - Acute respiratory failure with hypoxia Status: Acute Assessment and Plan: As above, continue noninvasive positive pressure ventilation, diuresis. Defer to critical care and primary service in this regard. (6) JOE (obstructive sleep apnea): Code(s): G47.33 - Obstructive sleep apnea (adult) (pediatric) Status: Acute Assessment and Plan: As above. Patient has been without CPAP at home for several months no doubt complicating his clinical picture at this time. History of Present Illness History of Present Illness Consult date/time: Date of service: 09/25/21 15:22 Cardiology consultation at the request of Dr. Rios of the [facility] service for our opinion regarding elevated troponin Requesting physician: Moreno Rios MD Consult reason: Other (Elevated troponin) Reason For Visit: acute respiratory failure with hypercapnia,acute r Narrative: The patient is a very pleasant but complicated 71-year-old gentleman with a history of follicular lymphoma, obstructive sleep apnea on CPAP, pulmonary hypertension, hypertension, diabetes mellitus, CAD with previous stent in LAD and RCA 2009, history of LAD and stent restenosis status post balloon dilatation prior to TAVR for severe aortic stenosis 2019. Left heart catheterization March 2020 revealed patent stent RCA 30-40% distal left main stenosis. Patient did well and felt much better after TAVR. He is followed by Dr. Ribeiro as an outpatient.
--- NOTE | 2021-09-25 16:24 | PM.CNNEP ---
Assessment and Plan Assessment and plan (1) Acute on chronic renal failure: Qualifiers: Acute renal failure type: unspecified Chronic kidney disease stage: stage 3 (moderate) Qualified Code(s): N17.9 - Acute kidney failure, unspecified; N18.3 - Chronic kidney disease, stage 3 (moderate) Code(s): N17.9 - Acute kidney failure, unspecified; N18.9 - Chronic kidney disease, unspecified Status: Acute Assessment and Plan: the patient has chronic kidney disease stage IIIB. His baseline GFR runs in the low 30s. This is due to diabetes and hypertension. The patient also has acute kidney injury. Renal ultrasound was normal. His urinalysis is bland. His blood pressure was low. He could have dehydration and an elevated creatinine because of this. He may have sepsis. His white count is up a little bit. He has blood cultures clicking and is on antibiotics. Rhabdomyolysis always a possibility. He is on a statin.Will check a CPK. Other causes such as interstitial nephritis and glomerulonephritis are less likely in this clinical scenario. Will check urine electrolytes and CPK. (2) Hypotension: Code(s): I95.9 - Hypotension, unspecified Status: Acute Assessment and Plan: His blood pressure was low on admission. It has improved with IV fluids. we do not want to give him much more IV fluids lest pulmonary issues become worse. (3) Sepsis: Code(s): A41.9 - Sepsis, unspecified organism Status: Acute Assessment and Plan: The patient is on antibiotics. Blood cultures are pending (4) Congestive heart failure: Qualifiers: Heart failure type: unspecified Heart failure chronicity: unspecified Qualified Code(s): I50.9 - Heart failure, unspecified Code(s): I50.9 - Heart failure, unspecified Status: Acute Assessment and Plan: echo shows a good ejection fraction and grade 1 diastolic dysfunction. Spite of untreated CPAP the right side of his heart looks surprisingly good. (5) Anemia: Code(s): D64.9 - Anemia, unspecified Status: Acute Assessment and Plan: Hemoglobin is 10.3. It is not low enough to require Epogen (6) Hypertension: Code(s): I10 - Essential (primary) hypertension Status: Chronic Assessment and Plan: His blood pressure is under good control right now. Antihypertensives are on hold because of his hypotension (7) Acute respiratory failure with hypercapnia: Code(s): J96.02 - Acute respiratory failure with hypercapnia Status: Acute Assessment and Plan: the patient has high pCO2 and respiratory acidosis. He has sleep apnea and does not treat this. He is septic and hypotensive chief and is probably just not breathing as well as he normally would. (8) Type 2 diabetes mellitus with hyperglycemia: Qualifiers: Diabetes mellitus fpc insulin use: with superintendent container terminal use Qualified Code(s): E11.65 - Type 2 diabetes mellitus with hyperglycemia; Z79.4 - care home (current) use of insulin Code(s): E11.65 - Type 2 diabetes mellitus with hyperglycemia Status: Acute History of Present Illness Reason for Consult Consult date: 09/25/21 Chief Complaint Chief complaint: acute respiratory failure with hypercapnia,acute r History of Present Illness Narrative: Pascual is a very pleasant 71-year-old gentleman who has multiple medical problems including chronic kidney disease with a GFR in the low 30s, history of aortic stenosis status post TAVR, coronary disease, atrial valve prolapse, depression, GERD, hyperlipidemia, pulmonary hypertension, sleep apnea but does not use a CPAP at home, and congestive heart failure, diabetes, hypertension, lymphoma treated in 2019 with chemo and radiation therapy, and arthritis. the patient came in because he was weak. he actually was so weak that he fell over. He says he had felt fine until yesterday
[2021-09-25] MEDS: FUROSEMIDE INJ 40 MG/4 ML VIAL IV PUSH (18:44)
[2021-09-25 18:49] LABS: Glucose Point of Care 126 mg/dl (65-105)
[2021-09-25] MEDS: HEPARIN SODIUM 5,000 UNITS/ML VIAL 4000 UNITS IV PUSH (18:49)
[2021-09-25 18:50] LABS: Basophils Absolute Auto 0.1 K/mm3 (0.0-0.1); Basophils Percent Auto 0.5 % (0.2-1.2); Eosinophils Absolute Auto 0.1 K/mm3 (0-0.3); Eosinophils Percent Auto 1.3 % (0-4.4); Hematocrit 34.9 % (42.0-52.0); Hemoglobin 10.2 g/dL (14.0-18.0); Immature Granulocyte Absolute 0.09 K/mm3 (0.00-0.031); Immature Granulocyte Percent A 0.9 % (0-0.5); Lymphocytes Percent Auto 8.3 % (18.3-44.2); Mean Corpuscular HGB Conc 29.2 g/dl (32-36); Mean Corpuscular Hemoglobin 26.2 pg (26-34); Mean Corpuscular Volume 89.5 fl (80-100); Mean Platelet Volume 9.5 fl (7.4-10.4); Monocytes Absolute Auto 0.7 K/mm3 (0.1-0.6); Monocytes Percent Auto 7.3 % (2.6-8.5); Neutrophils Absolute Auto 7.9 K/mm3 (1.3-6.7); Neutrophils Percent Auto 81.7 % (45.5-73.1); Platelet Count Result 139 k/mm3 (150-375); Red Cell Distribution Width 17.3 % (11.5-14.5); White Blood Count 9.7 K/mm3 (4.5-10.0)
[2021-09-25] MEDS: HEPARIN SOD/D5W 100 UNITS/ML 25,000 UNITS/250 ML BAG 10 UNITS IV CONT (18:55)
[2021-09-25 19:01] LABS: INR 1.2; Prothrombin Time 14.5 Seconds (11.1-14.7)
[2021-09-25 19:02] LABS: Partial Thromboplastin Time 38.9 SECONDS (22.3-36.8)
[2021-09-25 19:36] LABS: Hypochromasia 1+ (NORMAL); Ovalocytes 1+ (NORMAL); Platelet Estimate Decreased (Adequate)
[2021-09-25] MEDS: traZODone HCL 50 MG TABLET 100 MG PO (21:16)
[2021-09-25] MEDS: PRAMIPEXOLE 1 MG TABLET PO (21:16)
[2021-09-25] MEDS: FLUoxetine HCL 20 MG CAPSULE PO (21:16)
[2021-09-25] MEDS: ATORVASTATIN 40 MG TABLET 80 MG PO (21:16)
[2021-09-25] MEDS: QUEtiapine FUMARATE 25 MG TABLET 50 MG PO (21:16)
[2021-09-26] VITALS (47 sets, daily range): BP systolic 107–162; BP diastolic 59–114; PULSE 85–116; RESP 14–28; TEMP 36.6–37.4; O2SAT 88–100
[2021-09-26 00:09] LABS: Glucose Point of Care 147 mg/dl (65-105)
[2021-09-26 01:37] LABS: Partial Thromboplastin Time 173.7 SECONDS (22.3-36.8)
[2021-09-26 04:23] LABS: Fractional Inspired Oxygen 28 %; Oxygen Content ABG 15.1 %vol (16.0-22.0)
[2021-09-26 04:24] LABS: Modified Allen's Test Pass; Site Drawn LEFT RADIAL
[2021-09-26 04:25] LABS: Device NON-INVASIVE VENT
[2021-09-26 04:32] LABS: HCO3 ABG 22.3 mEq/l (22.0-26.0); Oxygen Saturation ABG 95.9 % (95.0-100.0); PCO2 ABG 51.4 mmHg (35.0-45.0); PO2 ABG 93.3 mmHg (80.0-100.0); Total Hemoglobin 11.2 g/dL (12.0-18.0); pH ABG 7.255 (7.350-7.450)
[2021-09-26 04:33] LABS: Alveolar/Arterial O2 Gradient 45.7 mmHg; Oxyhemoglobin 95.1 % THb (90.0-100.0); PO2 FiO2 Ratio Arterial Blood 3.33 %
[2021-09-26 05:04] LABS: Basophils Percent Auto 0.4 % (0.2-1.2); Eosinophils Absolute Auto 0.2 K/mm3 (0-0.3); Eosinophils Percent Auto 1.8 % (0-4.4); Hematocrit 34.1 % (42.0-52.0); Hemoglobin 10.1 g/dL (14.0-18.0); Immature Granulocyte Absolute 0.07 K/mm3 (0.00-0.031); Immature Granulocyte Percent A 0.8 % (0-0.5); Lymphocytes Absolute Auto 0.48 K/mm3 (0.9-3.2); Lymphocytes Percent Auto 5.3 % (18.3-44.2); Mean Corpuscular HGB Conc 29.6 g/dl (32-36); Mean Corpuscular Hemoglobin 26.9 pg (26-34); Mean Corpuscular Volume 90.9 fl (80-100); Mean Platelet Volume 10.8 fl (7.4-10.4); Monocytes Absolute Auto 0.7 K/mm3 (0.1-0.6); Monocytes Percent Auto 7.7 % (2.6-8.5); Neutrophils Absolute Auto 7.7 K/mm3 (1.3-6.7); Platelet Count Result 131 k/mm3 (150-375); Red Blood Count 3.75 M/mm3 (4.6-6.20); Red Cell Distribution Width 17.3 % (11.5-14.5); White Blood Count 9.1 K/mm3 (4.5-10.0)
[2021-09-26 05:28] LABS: Alanine Aminotransferase 13 U/L (4-50); Albumin Level 3.6 g/dL (3.5-5.1); Alkaline Phosphatase 62 U/L (38-126); Anion Gap 5 mmol/L (8-16); Aspartate Amino Transferase 32 U/L (17-59); Bilirubin,Total 0.6 mg/dL (0.2-1.3); Blood Urea Nitrogen 45 mg/dL (9-20); CRP 1.8 mg/dL (<1.0); Calcium 8.7 mg/dL (8.4-10.2); Carbon Dioxide 24 mmol/L (22-30); Chloride 109 mmol/L (98-107); Estimated CRCL calculation 37 ml/min; Estimated Glomerular Filt Rate 23; Glucose 158 mg/dL (65-110); Magnesium 1.6 mg/dL (1.6-2.3); Potassium 4.8 mmol/L (3.4-5.0); Sodium 138 mmol/L (137-145)
[2021-09-26] MEDS: CENTRAL LINE FLUSH 10 ML IV PUSH ×3 (05:38→23:03)
[2021-09-26] MEDS: MAGNESIUM SULF 1 GM/D5W 100 ML 1 GM/100 ML BAG IVPB (09:10)
[2021-09-26] MEDS: FUROSEMIDE INJ 40 MG/4 ML VIAL IV PUSH (09:10)
[2021-09-26] MEDS: CYANOCOBALAMIN INJ 1,000 MCG/ML VIAL 1000 MCG IM (09:10)
[2021-09-26] MEDS: ASPIRIN 81 MG ENTERIC TABLET PO (09:11)
[2021-09-26] MEDS: PANTOPRAZOLE SODIUM IV 40 MG VIAL IV PUSH ×2 (09:11→21:11)
[2021-09-26] MEDS: CLOPIDOGREL BISULFATE 75 MG TABLET PO (09:11)
[2021-09-26 10:27] LABS: Partial Thromboplastin Time 36.3 SECONDS (22.3-36.8)
[2021-09-26] MEDS: HEPARIN SODIUM 5,000 UNITS/ML VIAL 4000 UNITS IV PUSH ×2 (10:31→18:28)
--- NOTE | 2021-09-26 11:36 | WPDINTPN ---
Progress Note: A&P Assessment and Plan (1) Acute respiratory failure with hypercapnia: Code(s): J96.02 - Acute respiratory failure with hypercapnia Status: Acute Assessment and Plan: Acute on chronic respiratory failure secondary to restrictive lung disease from obesity hypoventilation syndrome, CHF questionable pneumonia Patient currently on BiPAP. He is currently in AVAPS mode FiO2 28% ABG shows improvement this morning Will give patient a break and placement nasal cannula Patient likely has baseline pCO2 in 60s and acidosis were secondary to his DAWNA He is alert oriented x3 Chest x-ray shows congestion and will Continue Lasix today Did bronchodilators ordered Continue close monitoring in ICU today. He still may deteriorate and may need intubation Incentive spirometry (2) Acute on chronic renal failure: Qualifiers: Acute renal failure type: unspecified Chronic kidney disease stage: stage 3 (moderate) Qualified Code(s): N17.9 - Acute kidney failure, unspecified; N18.3 - Chronic kidney disease, stage 3 (moderate) Code(s): N17.9 - Acute kidney failure, unspecified; N18.9 - Chronic kidney disease, unspecified Status: Acute Assessment and Plan: Patient has chronic kidney disease and history of acute kidney injury in the past from sepsis and hypertension Baseline creatinine is 1.5-2 Presented with creatinine of 2.7 He has received IV fluids but creatinine remains unchanged Hold further IV fluids due to concern of volume overload Lasix ordered Creatinine has been unchanged (3) Severe aortic stenosis: Code(s): I35.0 - Nonrheumatic aortic (valve) stenosis Status: Acute Assessment and Plan: Status post TAVR in 2019 (4) CHF (congestive heart failure): Code(s): I50.9 - Heart failure, unspecified Status: Chronic Assessment and Plan: EF of 35% on last echo Continue diuresis BNP elevated at 3020 (5) Elevated troponin: Code(s): R77.8 - Other specified abnormalities of plasma proteins Status: Acute Assessment and Plan: Patient chest pain-free and has history of persistently elevated troponin in the past He does have coronary disease status post multiple PCIs EKG reviewed Cardiology is following Continue aspirin statin Plavix Patient has been started on heparin infusion by Cardiology. Patient is chest pain-free (6) CAD (coronary artery disease): Code(s): I25.10 - Atherosclerotic heart disease of mechoopda coronary artery without angina pectoris Status: Acute Assessment and Plan: PCI in 2009, PCI of InStent restenoses in 2020 (7) Aortic stenosis: Qualifiers: Cardiac valve disease etiology: etiology unspecified Qualified Code(s): I35.0 - Nonrheumatic aortic (valve) stenosis Code(s): I35.0 - Nonrheumatic aortic (valve) stenosis Status: Acute Assessment and Plan: Status post TAVR in 2020 at [facility] (8) Type 2 diabetes mellitus with hyperglycemia: Qualifiers: Diabetes mellitus intermission coordinator insulin use: with intermission coordinator use Qualified Code(s): E11.65 - Type 2 diabetes mellitus with hyperglycemia; Z79.4 - intermission coordinator (current) use of insulin Code(s): E11.65 - Type 2 diabetes mellitus with hyperglycemia Status: Acute Assessment and Plan: Sliding scale insulin (9) Lymphoma: Code(s): C85.90 - Non-Hodgkin lymphoma, unspecified, unspecified site Status: Acute Assessment and Plan: Chemotherapy till 08/2018 radiation till 09/2018 Maintenance chemotherapy was started in January 2019 but discontinued in March 2019 due to recurrent chest pains (10) DVT prophylaxis: Code(s): Z29.9 - Encounter for prophylactic measures, unspecified Status: Acute Assessment and Plan: Lovenox (11) Hypotension: Code(s): I95.9 - Hypotension, unspecified Status: Acute Assessment and Plan: Blood pressure yesterday was a
--- NOTE | 2021-09-26 12:02 | PM.PNNEP ---
Progress Note: A&P Assessment and Plan (1) Acute on chronic renal failure: Qualifiers: Acute renal failure type: unspecified Chronic kidney disease stage: stage 3 (moderate) Qualified Code(s): N17.9 - Acute kidney failure, unspecified; N18.3 - Chronic kidney disease, stage 3 (moderate) Code(s): N17.9 - Acute kidney failure, unspecified; N18.9 - Chronic kidney disease, unspecified Status: Acute Assessment and Plan: the patient has chronic kidney disease stage IIIB. His baseline GFR runs in the low 30s. This is due to diabetes and hypertension. The patient also has acute kidney injury. Renal ultrasound was normal. His urinalysis is bland. His blood pressure is better, with a systolic between 100 and 170. He may have sepsis. His white count is Down to normal. Blood cultures are pending but negative so far. Rhabdomyolysis always a possibility. He is on a statin.Will check a CPK. BUN creatinine are about the same. Urine output has picked up a little bit. With his chest x-ray findings and improved blood pressure, I think we can give him a dose of diuretics and see how he does. (2) Hypotension: Code(s): I95.9 - Hypotension, unspecified Status: Acute Assessment and Plan: Improved after IV fluids (3) Sepsis: Code(s): A41.9 - Sepsis, unspecified organism Status: Acute Assessment and Plan: The patient is on antibiotics. Blood cultures are pending (4) Congestive heart failure: Qualifiers: Heart failure type: unspecified Heart failure chronicity: unspecified Qualified Code(s): I50.9 - Heart failure, unspecified Code(s): I50.9 - Heart failure, unspecified Status: Acute Assessment and Plan: echo shows a good ejection fraction and grade 1 diastolic dysfunction. Spite of untreated CPAP the right side of his heart looks surprisingly good. (5) Anemia: Code(s): D64.9 - Anemia, unspecified Status: Acute Assessment and Plan: Hemoglobin is 10.3. It is not low enough to require Epogen (6) Hypertension: Code(s): I10 - Essential (primary) hypertension Status: Chronic Assessment and Plan: His blood pressure is under good control right now. Antihypertensives are on hold because of his hypotension (7) Acute respiratory failure with hypercapnia: Code(s): J96.02 - Acute respiratory failure with hypercapnia Status: Acute Assessment and Plan: he still has primarily respiratory acidosis. His bicarbonate level has not risen To accommodate because of his renal insufficiency. will give sodium bicarb (8) Type 2 diabetes mellitus with hyperglycemia: Qualifiers: Diabetes mellitus fpc insulin use: with fpc use Qualified Code(s): E11.65 - Type 2 diabetes mellitus with hyperglycemia; Z79.4 - [facility]FP (current) use of insulin Code(s): E11.65 - Type 2 diabetes mellitus with hyperglycemia Status: Acute Subjective Date/time seen: 09/26/21 12:02 Interval history: The patient is about the same today. He is still on a BiPAP mask he says his breathing is okay today , but it is dependent on the BiPAP. No chest pain Review of Systems Cardiovascular: Cardiovascular: Reports no additional cardiovascular complaints Respiratory: Respiratory: Reports no additional respiratory complaints Gastrointestinal: Gastrointestinal: Reports no additional gastrointestinal complaints Genitourinary: Genitourinary: Reports no additional male genitourinary complaints Exam Narrative: WDWN overweight male on the BiPAP mask in NAD skin no rash head ncat lungs decreased breath sounds at the bases cor reg no rub abd BS+ nontender and soft ext no edema. Objective Data Vital Signs Vital Signs: Vital Signs - 24 hr 09/25/21 13:30 09/25/21 13:57 09/25/21 14:00 Temperature 37.6 C H 37.4 C Pulse Rate 91 77
[2021-09-26 12:04] LABS: Glucose Point of Care 135 mg/dl (65-105)
[2021-09-26 13:53] LABS: Creatinine Urine 48.7 mg/dL; Sodium Urine Random 105 meq/L; Total Protein Urine Random 50 mg/dL; Ur Ttl Prot Creatinine Ratio 1.03 mg/mg (0-0.20)
[2021-09-26 13:55] LABS: Creatine Kinase > 16000 U/L (55-170)
--- NOTE | 2021-09-26 16:09 | PM.PNCARD ---
Progress Note: A&P Assessment and Plan (1) Non-ST elevation MT (NSTEMI): Code(s): I21.4 - Non-ST elevation (NSTEMI) myocardial infarction Status: Acute Assessment and Plan: Patient with history of CAD with prior myocardial infarction previous stent and or PCI. Elevation in troponin complicated by hypotension presentation, acute on chronic hypoxic and hypercarbic respiratory failure, acute on chronic renal failure and underlying CAD. Although possible acute plaque rupture less likely as the primary presenting pathology given the circumstances. Twelve lead EKG largely unchanged, no chest pain a giving worsening respiratory failure and elevated troponin recommend heparin infusion. Will discontinue enoxaparin for DVT prophylaxis. Patient improving clinically and hemodynamically stable. Again, in light of acute on chronic renal failure would like to avoid contrast exposure given high risk for further renal deterioration. Patient is currently stabilizing and without acute anginal symptoms at this time. -continue Heparin infusion for total 48 hours. Discontinue Thursday morning. -Continue aspirin, clopidogrel. Follow H&H. Repeat 12 lead EKG in a.m.. -EF preserved on echocardiogram. Overall, patient is very complicated and high risk for cardiovascular complications given chronic troponin elevation. However, given his history and trend in troponin elevation will more aggressively manage for non ST-elevation MT. (2) Acute on chronic heart failure with preserved ejection fraction: Code(s): I50.33 - Acute on chronic diastolic (congestive) heart failure Status: Acute Assessment and Plan: Agree with diuresis. Complicated by underlying CAD, acute hypoxic and hypercarbic respiratory failure, severe hypotension at presentation L improved. Cautious diuresis, monitor input and output, daily weight. Monitor renal function electrolytes closely. (3) Kevlh-pj-evrotsd kidney injury: Code(s): N17.9 - Acute kidney failure, unspecified; N18.9 - Chronic kidney disease, unspecified Status: Acute Assessment and Plan: Secondary to hypotension presentation as well as acute hypoxic and hypercarbic respiratory failure. Appreciate Nephrology recommendations and involvement. (4) Status post transcatheter aortic valve replacement (TAVR) using bioprosthesis: Code(s): Z95.3 - Presence of xenogenic heart valve Status: Acute Assessment and Plan: Aortic valve area stable, preserved function by echocardiogram. (5) Acute respiratory failure with hypoxia: Code(s): J96.01 - Acute respiratory failure with hypoxia Status: Acute Assessment and Plan: Improving. As above, continue noninvasive positive pressure ventilation, diuresis. Defer to critical care and primary service in this regard. (6) JOE (obstructive sleep apnea): Code(s): G47.33 - Obstructive sleep apnea (adult) (pediatric) Status: Acute Assessment and Plan: As above. Patient has been without CPAP at home for several months no doubt complicating his clinical picture at this time. Continue noninvasive positive pressure ventilation. Defer to Critical Care and Primary Service. Subjective Date/time seen: Date of service: 09/26/21 16:09 Follow-up for NSTEMI, CHF, acute hypoxic respiratory failure No new issues overnight. Patient feels much better. Denies chest pain at any time. Shortness of breath improved. BP improved as well. Sinus rhythm on telemetry. Review of Systems Review of Systems: All systems reviewed & are unremarkable except as noted in HPI and below Constitutional: Constitutional: Reports as per HPI and Reports no additional constitutional complaints Eyes: Eyes: Reports as per HPI and Reports no additional eye complaints ENT: Reports system reviewed and no additional complaints, except as documented and Reports as per HPI Cardiovascular: Cardiovascular: Reports as per HPI and Repor
[2021-09-26 16:27] LABS: Glucose Point of Care 177 mg/dl (65-105)
--- NOTE | 2021-09-26 16:56 | PM.IMPN ---
Progress Note: A&P Assessment and Plan (1) Acute respiratory failure with hypercapnia: Code(s): J96.02 - Acute respiratory failure with hypercapnia Status: Acute Assessment and Plan: Patient presents with weakness and found to have acute respiratory failure with hypercarbia. Most likely related to being off his noninvasive ventilation at home. With frequent adjustments of the BiPAP, pH has improved 7.25 today. PCO2 has improved to 57. Lactic acid level was slightly elevated at 2.2 but normalized on repeat. COVID was negative. Chest x-ray was clear on admission but today showing diffuse disease. Weaned off BiPAP today. Continue BiPAP with naps and at bedtime. Acidosis felt combination of resp and metabolic process. Repeat LA normal. Acidosis related to the rhandomyolysis? Continue NaBicarb orally. (2) Acute hypotension: Code(s): I95.9 - Hypotension, unspecified Status: Acute Assessment and Plan: Blood pressure was 68/23 on admission. Probably accurate due to the similar findings on repeat measurements. With IV fluids, blood pressure has improved. Etiology unclear but sepsis seems less likely. He is not overly anemic to suggest acute blood loss. BCx NGTD. Procalcitonin 0.2. Consider cardiogenic but Echo showing EF 55-60% and Grade I Diastolic Dysfunction. He has acute kidney injury so would consider dehydration more likely given the marked improvement in BP with IV fluids. Antihypertensive medications remain on hold. Will continue to monitor blood pressure closely in the IMU. Abx stopped since less likely PNA and cultures negative. (3) Rhabdomyolysis: Code(s): M62.82 - Rhabdomyolysis Status: Acute Assessment and Plan: Total CK >16K this morning. Related to the HoTN? No trauma or prolonged down time. Related to high dose statin? Could explain his elevated Troponins. Stop Lipitor. Consider IV fluids. Monitor renal function. (4) Non-ST elevation OK (NSTEMI): Code(s): I21.4 - Non-ST elevation (NSTEMI) myocardial infarction Status: Acute Assessment and Plan: Troponin climbed to 5.[address] showing borderline [address]-T wave changes in the high lateral leads. He appears to always have elevated Troponin. Echo showing EF 55-60% with grade I diastolic dysfunction and mild . Cardiology consulted. Will continue ASA and Plavix. Stop Lipitor. Heparin started. Appreciate Cardiology input. (5) Acute renal insufficiency: Code(s): N28.9 - Disorder of kidney and ureter, unspecified Status: Acute Assessment and Plan: On admission, creatinine was 2.7 which is above his baseline. Patient was HoTN on presentation and suspect he was hypotensive at home resulting in his weakness. Hypotension could be related to his medications. Hypotension also may have caused ATN resulting in the acute kidney injury. CT scan shows kidneys are normal. Renal ultrasound normal. Nephrology consult. Bicarb started. Bumex once given. Continue to monitor renal function. (6) Acute on chronic heart failure with preserved ejection fraction: Code(s): I50.33 - Acute on chronic diastolic (congestive) heart failure Status: Acute Assessment and Plan: As above. Echo showing EF 55-60% with grade I diastolic dysfunction and mild . CXR showing evidence of CHF. BNP 3000. Bumex once. Balancing act. (7) Anemia: Code(s): D64.9 - Anemia, unspecified Status: Acute Assessment and Plan: B12 level low and this is being replaced. He is also noted to be iron deficient. Replace this as well with IV when better. Stool guaiac ordered. He is on Plavix and ASA. Continue Protonix (8) Altered mental status: Code(s): R41.82 - Altered mental status, unspecified Status: Acute Assessment and Plan: Patient is alert and less confused. No focal weakness to suggest CVA. Suspect this is related to his acute respiratory failure with hypercapnia
[2021-09-26] MEDS: SODIUM BICARBONATE TAB 650 MG TABLET 1300 MG PO (17:24)
[2021-09-26 17:35] LABS: Partial Thromboplastin Time > 200.0 SECONDS (22.3-36.8)
[2021-09-26 17:47] LABS: Glucose Point of Care 173 mg/dl (65-105)
[2021-09-26 18:25] LABS: Partial Thromboplastin Time 49.4 SECONDS (22.3-36.8)
[2021-09-26] MEDS: ALBUTEROL SULFATE NEB 2.5 MG/0.5 ML INH INHALATION (19:39)
[2021-09-26] MEDS: IPRATROPIUM BR 0.02% INH SOLN 0.5 MG/2.5 ML VIAL INHALATION (19:40)
[2021-09-26] MEDS: HEPARIN SOD/D5W 100 UNITS/ML 25,000 UNITS/250 ML BAG 17 UNITS IV CONT (19:51)
[2021-09-26] MEDS: SODIUM BICARBONATE 8.4% 150 MEQ in WATER, STERILE FOR INJECTION 950 ML 75 MEQ IV CONT (20:21)
[2021-09-26] MEDS: FLUoxetine HCL 20 MG CAPSULE PO (21:10)
[2021-09-26] MEDS: traZODone HCL 50 MG TABLET PO (21:11)
[2021-09-26] MEDS: PRAMIPEXOLE 1 MG TABLET PO (21:12)
[2021-09-26] MEDS: QUEtiapine FUMARATE 25 MG TABLET PO (21:12)
[2021-09-26 21:54] LABS: Glucose Point of Care 217 mg/dl (65-105)
[2021-09-27] VITALS (46 sets, daily range): BP systolic 90–175; BP diastolic 55–92; PULSE 84–101; RESP 13–30; TEMP 36.6–37.2; O2SAT 87–100
[2021-09-27 00:47] LABS: Partial Thromboplastin Time 95.2 SECONDS (22.3-36.8)
[2021-09-27] MEDS: IPRATROPIUM BR 0.02% INH SOLN 0.5 MG/2.5 ML VIAL INHALATION ×4 (02:07→19:35)
[2021-09-27] MEDS: ALBUTEROL SULFATE NEB 2.5 MG/0.5 ML INH INHALATION ×4 (02:07→19:35)
[2021-09-27] MEDS: CENTRAL LINE FLUSH 10 ML IV PUSH ×3 (06:15→20:07)
[2021-09-27 06:54] LABS: Hematocrit 31.8 % (42.0-52.0); Hemoglobin 9.7 g/dL (14.0-18.0); Mean Corpuscular HGB Conc 30.5 g/dl (32-36); Mean Corpuscular Hemoglobin 26.4 pg (26-34); Mean Corpuscular Volume 86.6 fl (80-100); Mean Platelet Volume 10.3 fl (7.4-10.4); Platelet Count Result 128 k/mm3 (150-375); Red Blood Count 3.67 M/mm3 (4.6-6.20); Red Cell Distribution Width 17.1 % (11.5-14.5); White Blood Count 10.2 K/mm3 (4.5-10.0)
[2021-09-27 07:05] LABS: Partial Thromboplastin Time 86.2 SECONDS (22.3-36.8)
[2021-09-27 07:07] LABS: Add Urine Microscopic? YES; Appearance Urine Clear (Clear); Bilirubin Urine Negative (Negative); Blood Urine 3+ (Negative); Color Urine Yellow (Yellow); Glucose Urine UA Negative (Negative); Ketones Urine Negative (Negative); Leukocyte Esterase Ur Trace LEU/UL (Negative); Nitrate Urine Negative (Negative); Protein Urine 1+ mg/dL (Negative); RBC Urine >75 /hpf (0-2); Specific Grav Ur 1.014 (1.001-1.035); Urobilinogen Urine Negative mg/dL (<2.0); WBC Urine 16-20 /hpf
--- NOTE | 2021-09-27 08:15 | ECG_ITS ---
Measurements Intervals [place] Rate: 94 P: 46 DE: 158 QRS: -1 QRSD: 118 T: 79 QT: 354 QTc: 443 Interpretive Statements SINUS RHYTHM INTRAVENTRICULAR CONDUCTION DELAY ANTEROSEPTAL INFARCT, AGE INDETERMINATE BORDERLINE ST-T WAVE ABNORMALITY- HIGH LATERAL LEADS ABNORMAL ECG Electronically Signed On 09-27-2021 12:04:42 NEEDLE LOOM OPERATOR by Hema Emery D.O.
[2021-09-27 08:23] LABS: Alanine Aminotransferase 13 U/L (4-50); Albumin Level 3.3 g/dL (3.5-5.1); Alkaline Phosphatase 59 U/L (38-126); Anion Gap 6 mmol/L (8-16); Aspartate Amino Transferase 26 U/L (17-59); Bilirubin,Total 0.6 mg/dL (0.2-1.3); Blood Urea Nitrogen 39 mg/dL (9-20); Calcium 8.3 mg/dL (8.4-10.2); Carbon Dioxide 27 mmol/L (22-30); Chloride 104 mmol/L (98-107); Creatine Kinase 236 U/L (55-170); Estimated CRCL calculation 49 ml/min; Estimated Glomerular Filt Rate 31; Glucose 175 mg/dL (65-110); Magnesium 1.5 mg/dL (1.6-2.3); Potassium 3.9 mmol/L (3.4-5.0); Sodium 137 mmol/L (137-145)
--- NOTE | 2021-09-27 08:45 | WPDINTPN ---
Progress Note: A&P Assessment and Plan (1) Acute respiratory failure with hypercapnia: Code(s): J96.02 - Acute respiratory failure with hypercapnia Status: Acute Assessment and Plan: Acute on chronic respiratory failure secondary to restrictive lung disease from obesity hypoventilation syndrome, CHF questionable pneumonia Patient currently on nasal cannula. Continue BiPAP in AVAPS mode with low FiO2 during the day and at night ABGs in mental status has improved Patient likely has baseline pCO2 in 60s and acidosis were secondary to his DAWNA He is alert oriented x3 Chest x-ray shows congestion and will Continue Lasix today Continue bronchodilators Incentive spirometry Will try to get him up in chair today (2) Acute on chronic renal failure: Qualifiers: Acute renal failure type: unspecified Chronic kidney disease stage: stage 3 (moderate) Qualified Code(s): N17.9 - Acute kidney failure, unspecified; N18.3 - Chronic kidney disease, stage 3 (moderate) Code(s): N17.9 - Acute kidney failure, unspecified; N18.9 - Chronic kidney disease, unspecified Status: Acute Assessment and Plan: Patient has chronic kidney disease and history of acute kidney injury in the past from sepsis and hypertension Baseline creatinine is 1.5-2 Presented with creatinine of 2.7 He has received IV fluids but creatinine remains unchanged Hold further IV fluids due to concern of volume overload Received Lasix. Will continue diuresis Creatinine 2.1 today He is on IV fluids with bicarb allow for compensation for respiratory acidosis by Nephrology (3) Severe aortic stenosis: Code(s): I35.0 - Nonrheumatic aortic (valve) stenosis Status: Acute Assessment and Plan: Status post TAVR in 2020 (4) CHF (congestive heart failure): Code(s): I50.9 - Heart failure, unspecified Status: Chronic Assessment and Plan: EF of 35% on last echo Continue diuresis BNP elevated at 3020 (5) Elevated troponin: Code(s): R77.8 - Other specified abnormalities of plasma proteins Status: Acute Assessment and Plan: Patient chest pain-free and has history of persistently elevated troponin in the past He does have coronary disease status post multiple PCIs EKG reviewed Cardiology is following Continue aspirin statin Plavix Patient has been started on heparin infusion by Cardiology and recommend continuing until Thursday morning Patient is chest pain-free Defer management to Cardiology (6) CAD (coronary artery disease): Code(s): I25.10 - Atherosclerotic heart disease of [place] coronary artery without angina pectoris Status: Acute Assessment and Plan: PCI in 2009, PCI of InStent restenoses in 2020 (7) Aortic stenosis: Qualifiers: Cardiac valve disease etiology: etiology unspecified Qualified Code(s): I35.0 - Nonrheumatic aortic (valve) stenosis Code(s): I35.0 - Nonrheumatic aortic (valve) stenosis Status: Acute Assessment and Plan: Status post TAVR in 2020 at [facility] (8) Type 2 diabetes mellitus with hyperglycemia: Qualifiers: Diabetes mellitus fpc insulin use: with train operations supervisor use Qualified Code(s): E11.65 - Type 2 diabetes mellitus with hyperglycemia; Z79.4 - FCI (current) use of insulin Code(s): E11.65 - Type 2 diabetes mellitus with hyperglycemia Status: Acute Assessment and Plan: Sliding scale insulin (9) Lymphoma: Code(s): C85.90 - Non-Hodgkin lymphoma, unspecified, unspecified site Status: Acute Assessment and Plan: Chemotherapy till 08/2018 radiation till 09/2018 Maintenance chemotherapy was started in January 2019 but discontinued in March 2019 due to recurrent chest pains (10) DVT prophylaxis: Code(s): Z29.9 - Encounter for prophylactic measures, unspecified Status: Acute Assessment and Plan: On heparin drip (11) Hypotension:
[2021-09-27] MEDS: HEPARIN SOD/D5W 100 UNITS/ML 25,000 UNITS/250 ML BAG 17 UNITS IV CONT (09:24)
[2021-09-27] MEDS: BUMETANIDE INJ 1 MG/4 ML VIAL 2 MG IV PUSH (09:29)
[2021-09-27] MEDS: ASPIRIN 81 MG ENTERIC TABLET PO (09:33)
[2021-09-27] MEDS: PANTOPRAZOLE SODIUM IV 40 MG VIAL IV PUSH ×2 (09:33→20:06)
--- NOTE | 2021-09-27 09:47 | PM.PNCARD ---
Progress Note: A&P Additional Plan 71-year-old man with: Acute on chronic ventilatory insufficiency with severe hypercarbia and acidosis. Almost certainly this is related to untreated obesity sleep apnea. He had a moderate troponin rise and therefore has been heparinized. I am going to stop that today because I do not see any other evidence that his presentation is that of an acute coronary syndrome. Will continue to follow with you. It is of course of primary importance that he does not go home to a situation where he does not have a functional CPAP device. Will follow him with you during this hospitalization but at this time I do not have any additional cardiac recommendations. Do not plan on pursuing a ischemia evaluation during this admission if he remains stable Leo Ribeiro MD [facility] Subjective Date/time seen: Date of service: 09/27/21 09:47 Interval history: Follow-up visit in this 71-year-old man with: Admission with acute on chronic respiratory/ventilatory insufficiency with severe respiratory acidosis. Patient is morbidly obese and requires CPAP which he had in a not been using for about 2 months or so prior to admission. Patient did have a moderate troponin rise in this setting but no other clinical or electrocardiographic evidence of an acute coronary syndrome. Patient has a history of coronary artery disease with PCI to the LAD in the past as well as aortic valve stenosis with TAVR that was done in 2019. He continues to be morbidly obese but has not had any clinically evident cardiac problems since his TAVR. Today the patient is alert he feels well does not offer any cardiac complaints. Long discussion with the patient about importance of maintaining proper treatment of his sleep apnea and it would be of huge benefit if significant weight loss would occur. Exam Narrative: General: Pleasant morbidly obese male obese neck O2 via nasal cannula, no apparent distress, Well developed, awake, alert and oriented x3, appears comfortable and cooperative. Head: atraumatic, normocephalic Eyes: EOM intact, sclerae anicteric, conjunctivae unremarkable Ears/Nose: external inspection of ears and nose were grossly normal Mouth/Throat: limited exam due to BiPAP mask Neck: Obese supple, normal range of motion, no jugular venous distention or carotid bruits, thyroid nonpalpable, trachea midline. Cardiac: Regular rate and rhythm, normal S1-S2, no murmurs, clicks, gallops, or rubs. Lungs: Diminished breath sounds diffusely no obvious rales, faint expiratory wheezes no rhonchi. Abdomen: Morbidly obese, Soft, nontender, nondistended, positive bowel sounds throughout. No appreciable hepatosplenomegaly, no rebound guarding or rigidity noted. Abdominal aorta nonpalpable, no appreciable bruits. Extremities: Trace bilateral lower extremity edema, no clubbing, and or cyanosis. Extremities warm and well perfused. Skin: Warm and dry without ecchymoses, rashes, and/or petechiae. Musculoskeletal: Muscle strength and tone intact throughout without obvious deformities. Vascular: Carotid upstrokes 2+ bilaterally, radial pulses 2+ bilaterally, dorsalis pedis pulses 2+ bilaterally, posterior tibialis pulses palpable bilaterally. Neurologic: Cranial nerves 2-12 grossly intact, examination grossly nonfocal Pscyhiatric: Mood calm and appropriate. Objective Data Vital Signs Vital Signs: Vital Signs - 24 hr 09/26/21 10:00 09/26/21 11:52 09/26/21 12:00 Temperature 37.3 C 37.3 C Pulse Rate 85 91 Respiratory Rate 16 19 Blood Pressure 153/80 H 149/69 H Pulse Oximetry 96 99 97 09/26/21 13:00 09/26/21 14:00 09/26/21 16:00 Temperature 36.7 C Pulse Rate 101 H 92 Respiratory Rate 17 24 H Blood Pressure 130/67 133/66 Pulse Oximetry 98 93 92 09/26/21 16:30 09/26/21 18:00 09/26/21 18:01 Temperature Pulse Rate 105 H 102 H Respiratory Rate 15 16 Blood Pressure 142/72 H 1
[2021-09-27 09:49] LABS: Glucose Point of Care 163 mg/dl (65-105)
[2021-09-27] MEDS: CLOPIDOGREL BISULFATE 75 MG TABLET PO (10:41)
[2021-09-27] MEDS: CYANOCOBALAMIN INJ 1,000 MCG/ML VIAL 1000 MCG IM (10:41)
[2021-09-27] MEDS: SODIUM BICARBONATE 8.4% 150 MEQ in WATER, STERILE FOR INJECTION 950 ML 75 MEQ IV CONT (10:41)
[2021-09-27 12:53] LABS: Glucose Point of Care 249 mg/dl (65-105)
[2021-09-27] MEDS: INSULIN ASPART (*BKC) 100 UNITS/ML SUB-Q (12:53)
--- NOTE | 2021-09-27 12:56 | PM.PNNEP ---
Progress Note: A&P Assessment and Plan (1) Acute on chronic renal failure: Qualifiers: Acute renal failure type: unspecified Chronic kidney disease stage: stage 3 (moderate) Qualified Code(s): N17.9 - Acute kidney failure, unspecified; N18.3 - Chronic kidney disease, stage 3 (moderate) Code(s): N17.9 - Acute kidney failure, unspecified; N18.9 - Chronic kidney disease, unspecified Status: Acute Assessment and Plan: the patient has chronic kidney disease stage IIIB. His baseline GFR runs in the low 30s. This is due to diabetes and hypertension. The patient also has acute kidney injury. Renal ultrasound was normal. His urinalysis is bland. His blood pressure is running between 90 and 135. He may have sepsis. His white count is Down to normal. Blood cultures are pending negative so far. CPK was greater than 16,000 yesterday but today it is down to 236. One of these is wrong. Will repeat the CK. He is getting a bicarb drip and is getting loop diuretics to try to flush out the muscle enzyme. Urine output is good. (2) Hypotension: Code(s): I95.9 - Hypotension, unspecified Status: Acute Assessment and Plan: Improved after IV fluids (3) Sepsis: Code(s): A41.9 - Sepsis, unspecified organism Status: Acute Assessment and Plan: The patient is on antibiotics. Blood cultures are pending (4) Congestive heart failure: Qualifiers: Heart failure type: unspecified Heart failure chronicity: unspecified Qualified Code(s): I50.9 - Heart failure, unspecified Code(s): I50.9 - Heart failure, unspecified Status: Acute Assessment and Plan: echo shows a good ejection fraction and grade 1 diastolic dysfunction. Spite of untreated CPAP the right side of his heart looks surprisingly good. (5) Anemia: Code(s): D64.9 - Anemia, unspecified Status: Acute Assessment and Plan: Hemoglobin is 10.3. It is not low enough to require Epogen (6) Hypertension: Code(s): I10 - Essential (primary) hypertension Status: Chronic Assessment and Plan: His blood pressure is under good control right now. Antihypertensives are on hold because of his hypotension (7) Acute respiratory failure with hypercapnia: Code(s): J96.02 - Acute respiratory failure with hypercapnia Status: Acute Assessment and Plan: he still has primarily respiratory acidosis. Bicarbonate level is a little bit better with the drip we will stop this if his repeat CK is okay. 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 He is sitting up in a chair and is wearing nasal cannula. Oxygenation is okay. No chest pain Exam Narrative: WDWN overweight male on the BiPAP mask in NAD skin no rash or subcu nodules head ncat lungs decreased breath sounds at the bases cor reg no rub or gallop abd BS+ nontender and soft ext no edema. Objective Data Vital Signs Vital Signs: Vital Signs - 24 hr 09/26/21 13:00 09/26/21 14:00 09/26/21 16:00 Temperature 36.7 C Pulse Rate 101 H 92 Respiratory Rate 17 24 H Blood Pressure 130/67 133/66 Pulse Oximetry 98 93 92 09/26/21 16:30 09/26/21 18:00 09/26/21 18:01 Temperature Pulse Rate 105 H 102 H Respiratory Rate 15 16 Blood Pressure 142/72 H 142/72 H Pulse Oximetry 92 91 93 09/26/21 18:15 09/26/21 18:30 09/26/21 18:45 Temperature Pulse Rate 94 102 H 111 H Respiratory Rate 1
[2021-09-27 13:56] LABS: Creatine Kinase 222 U/L (55-170)
[2021-09-27 17:24] LABS: Glucose Point of Care 199 mg/dl (65-105)
[2021-09-27] MEDS: QUEtiapine FUMARATE 25 MG TABLET PO (20:06)
[2021-09-27] MEDS: FLUoxetine HCL 20 MG CAPSULE PO (20:06)
[2021-09-27] MEDS: traZODone HCL 50 MG TABLET PO (20:06)
[2021-09-27] MEDS: PRAMIPEXOLE 1 MG TABLET PO (20:06)
[2021-09-27 21:03] LABS: Glucose Point of Care 243 mg/dl (65-105)
[2021-09-28] VITALS (21 sets, daily range): BP systolic 131–162; BP diastolic 66–81; PULSE 85–102; RESP 20–24; TEMP 35.7–36.8; O2SAT 88–95
[2021-09-28] MEDS: IPRATROPIUM BR 0.02% INH SOLN 0.5 MG/2.5 ML VIAL INHALATION ×4 (01:38→20:45)
[2021-09-28] MEDS: ALBUTEROL SULFATE NEB 2.5 MG/0.5 ML INH INHALATION ×4 (01:38→20:45)
[2021-09-28 05:44] LABS: Hematocrit 32.3 % (42.0-52.0); Immature Platelet Fraction Pct 5.6 % (0.9-11.2); Mean Corpuscular Hemoglobin 26.6 pg (26-34); Mean Corpuscular Volume 85.9 fl (80-100); Mean Platelet Volume 10.9 fl (7.4-10.4); Platelet Count Result 132 k/mm3 (150-375); Red Blood Count 3.76 M/mm3 (4.6-6.20); Red Cell Distribution Width 16.8 % (11.5-14.5); White Blood Count 10.6 K/mm3 (4.5-10.0)
[2021-09-28] MEDS: CENTRAL LINE FLUSH 10 ML IV PUSH ×3 (05:51→21:03)
[2021-09-28 05:53] LABS: Partial Thromboplastin Time 36.5 SECONDS (22.3-36.8)
[2021-09-28 05:58] LABS: Alanine Aminotransferase 13 U/L (4-50); Albumin Level 3.5 g/dL (3.5-5.1); Alkaline Phosphatase 56 U/L (38-126); Anion Gap 4 mmol/L (8-16); Aspartate Amino Transferase 25 U/L (17-59); Bilirubin,Total 0.6 mg/dL (0.2-1.3); Blood Urea Nitrogen 35 mg/dL (9-20); Calcium 8.4 mg/dL (8.4-10.2); Carbon Dioxide 28 mmol/L (22-30); Chloride 101 mmol/L (98-107); Creatine Kinase 192 U/L (55-170); Estimated CRCL calculation 57 ml/min; Estimated Glomerular Filt Rate 37; Glucose 206 mg/dL (65-110); Magnesium 1.5 mg/dL (1.6-2.3); Phosphorus 2.3 mg/dL (2.5-4.5); Potassium 4.2 mmol/L (3.4-5.0); Sodium 133 mmol/L (137-145)
[2021-09-28 08:31] LABS: Glucose Point of Care 190 mg/dl (65-105)
[2021-09-28] MEDS: ASPIRIN 81 MG ENTERIC TABLET PO (09:53)
[2021-09-28] MEDS: CLOPIDOGREL BISULFATE 75 MG TABLET PO (09:53)
[2021-09-28] MEDS: PANTOPRAZOLE SODIUM IV 40 MG VIAL IV PUSH ×2 (09:54→20:58)
--- NOTE | 2021-09-28 10:28 | PM.PNNEP ---
Progress Note: A&P Assessment and Plan (1) Acute on chronic renal failure: Qualifiers: Acute renal failure type: unspecified Chronic kidney disease stage: stage 3 (moderate) Qualified Code(s): N17.9 - Acute kidney failure, unspecified; N18.3 - Chronic kidney disease, stage 3 (moderate) Code(s): N17.9 - Acute kidney failure, unspecified; N18.9 - Chronic kidney disease, unspecified Status: Acute Assessment and Plan: the patient has chronic kidney disease stage IIIB. His baseline GFR runs in the low 30s. This is due to diabetes and hypertension. The patient also has acute kidney injury. Renal ultrasound was normal. His urinalysis is bland. His blood pressure was low, but now is a bit higher now between 130 and 175. He may have sepsis. His white count is down to normal. Blood cultures are negative so far. CPK was greater than 16,000 at 1 point but repeat was normal and further repeats were normal. So I do not think he ever did have rhabdomyolysis. He is off is bicarb drip. His creatinine is down to 1.8. His baseline creatinine seems to balance between 1.0 and 1.8 Urine output is good. (2) Hypotension: Code(s): I95.9 - Hypotension, unspecified Status: Acute Assessment and Plan: Improved after IV fluids (3) Sepsis: Code(s): A41.9 - Sepsis, unspecified organism Status: Acute Assessment and Plan: The patient is on antibiotics. Blood cultures are pending (4) Congestive heart failure: Qualifiers: Heart failure type: unspecified Heart failure chronicity: unspecified Qualified Code(s): I50.9 - Heart failure, unspecified Code(s): I50.9 - Heart failure, unspecified Status: Acute Assessment and Plan: echo shows a good ejection fraction and grade 1 diastolic dysfunction. In spite of untreated CPAP the right side of his heart looks surprisingly good. (5) Anemia: Code(s): D64.9 - Anemia, unspecified Status: Acute Assessment and Plan: Hemoglobin is 10.3. It is not low enough to require Epogen (6) Hypertension: Code(s): I10 - Essential (primary) hypertension Status: Chronic Assessment and Plan: His blood pressure is under good control right now. Antihypertensives are on hold because of his hypotension (7) Acute respiratory failure with hypercapnia: Code(s): J96.02 - Acute respiratory failure with hypercapnia Status: Acute Assessment and Plan: he still has primarily respiratory acidosis. Bicarbonate level is a little bit better with the drip we will stop this if his repeat CK is okay. 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 He just finished breakfast. He has trouble with his BiPAP machine. He has a CPAP machine at home. however he does not use at very much. No chest pain Exam Narrative: WDWN overweight male on the BiPAP mask in NAD skin no rash or subcu nodules head ncat lungs decreased breath sounds at the bases cor reg no rub or gallop abd BS+ nontender and soft ext no edema Or cyanosis. Objective Data Vital Signs Vital Signs: Vital Signs - 24 hr 09/27/21 12:00 09/27/21 14:00 09/27/21 14:17 Temperature 37.1 C Pulse Rate 88 84 93 Respiratory Rate 24 H 20 21 H Blood Pressure 175/88 H Pulse Oximetry 95 100 09/27/21 14:24 09/27/21 16:00 09/27/21 18:00 Temperature 37.2 C Pulse Rate 100 96 97 Respiratory Rate 22 H 1
--- NOTE | 2021-09-28 11:53 | PM.PNCARD ---
Progress Note: A&P Assessment and Plan (1) Non-ST elevation [place] (NSTEMI): Code(s): I21.4 - Non-ST elevation (NSTEMI) myocardial infarction Status: Acute Assessment and Plan: Patient with history of CAD with prior myocardial infarction previous stent and or PCI. Elevation in troponin complicated by hypotension presentation, acute on chronic hypoxic and hypercarbic respiratory failure, acute on chronic renal failure and underlying CAD. Although possible acute plaque rupture less likely as the primary presenting pathology given the circumstances. Twelve lead EKG largely unchanged, no chest pain a giving worsening respiratory failure and elevated troponin recommend heparin infusion. -Continue aspirin, clopidogrel. Follow H&H. -EF preserved on echocardiogram. Overall, patient is very complicated and high risk for cardiovascular complications given chronic troponin elevation. However, given his history and trend in troponin elevation will more aggressively manage for non ST-elevation [place]. (2) Acute on chronic heart failure with preserved ejection fraction: Code(s): I50.33 - Acute on chronic diastolic (congestive) heart failure Status: Acute Assessment and Plan: Complicated by underlying CAD, acute hypoxic and hypercarbic respiratory failure, severe hypotension at presentation L improved. Cautious diuresis, monitor input and output, daily weight. Monitor renal function electrolytes closely. (3) Gjljq-wy-ibzirlx kidney injury: Code(s): N17.9 - Acute kidney failure, unspecified; N18.9 - Chronic kidney disease, unspecified Status: Acute Assessment and Plan: Improving Appreciate Nephrology recommendations and involvement. (4) Status post transcatheter aortic valve replacement (TAVR) using bioprosthesis: Code(s): Z95.3 - Presence of xenogenic heart valve Status: Acute Assessment and Plan: Aortic valve area stable, preserved function by echocardiogram. (5) Acute respiratory failure with hypoxia: Code(s): J96.01 - Acute respiratory failure with hypoxia Status: Acute Assessment and Plan: Improving. As above, continue noninvasive positive pressure ventilation, diuresis. Defer to critical care and primary service in this regard. (6) JOE (obstructive sleep apnea): Code(s): G47.33 - Obstructive sleep apnea (adult) (pediatric) Status: Acute Assessment and Plan: As above. Patient has been without CPAP at home for several months no doubt complicating his clinical picture at this time. Continue noninvasive positive pressure ventilation. Defer to Critical Care and Primary Service. (7) Hypertension: Code(s): I10 - Essential (primary) hypertension Status: Chronic Assessment and Plan: Resent his metoprolol 25 mg p.o. b.i.d. (8) Hypomagnesemia: Code(s): E83.42 - Hypomagnesemia Status: Acute Assessment and Plan: Magnesium 3 g IV x1 Subjective Date/time seen: 09/28/21 11:53 Interval history: 71-year-old male admitted because of respiratory failure. Date of service 09/28/2021: He feels quite well today he states. No chest pain, shortness of breath. Review of Systems Review of Systems: All systems reviewed & are unremarkable except as noted in HPI and below Constitutional: Constitutional: Reports as per HPI and Reports no additional constitutional complaints Eyes: Eyes: Reports as per HPI and Reports no additional eye complaints ENT: Reports system reviewed and no additional complaints, except as documented and Reports as per HPI Cardiovascular: Cardiovascular: Reports as per HPI and Reports no additional cardiovascular complaints Respiratory: Respiratory: Reports as per HPI and Reports no additional respiratory complaints Gastrointestinal: Gastrointestinal: Reports as per HPI and Reports no additional gastrointestinal complaints Genitourinary: Genitourinary: Reports no additional male
--- NOTE | 2021-09-28 12:45 | PM.IMPN ---
Progress Note: A&P Assessment and Plan (1) Acute respiratory failure with hypercapnia: Code(s): J96.02 - Acute respiratory failure with hypercapnia Status: Acute Assessment and Plan: Acute on chronic respiratory failure secondary to restrictive lung disease from obesity hypoventilation syndrome, CHF questionable pneumonia Patient currently on nasal cannula. Patient was initiated on BiPAP in AVAPS mode with low FiO2 during the day and at night ABGs in mental status has improved Patient likely has baseline pCO2 in 60s and acidosis were secondary to his DAWNA He is alert oriented x3 Chest x-ray shows congestion and will continue diuresis with Lasix Continue bronchodilators Incentive spirometry Increase activity (2) Acute on chronic renal failure: Qualifiers: Acute renal failure type: unspecified Chronic kidney disease stage: stage 3 (moderate) Qualified Code(s): N17.9 - Acute kidney failure, unspecified; N18.3 - Chronic kidney disease, stage 3 (moderate) Code(s): N17.9 - Acute kidney failure, unspecified; N18.9 - Chronic kidney disease, unspecified Status: Acute Assessment and Plan: Patient has chronic kidney disease and history of acute kidney injury in the past from sepsis and hypertension Baseline creatinine is 1.5-2 Presented with creatinine of 2.7 Ultrasound with no hydronephrosis He has received IV fluids but creatinine remains unchanged Hold further IV fluids due to concern of volume overload Received Lasix. Will continue diuresis Creatinine slowly improving 1.8 today He is on IV fluids with bicarb allow for compensation for respiratory acidosis by Nephrology (3) Severe aortic stenosis: Code(s): I35.0 - Nonrheumatic aortic (valve) stenosis Status: Acute Assessment and Plan: Status post TAVR in 2019 (4) CHF (congestive heart failure): Code(s): I50.9 - Heart failure, unspecified Status: Chronic Assessment and Plan: EF of 35% on last echo Continue diuresis BNP elevated at 3020 Chest x-ray 09/28/2021 reviewed (5) Elevated troponin: Code(s): R77.8 - Other specified abnormalities of plasma proteins Status: Acute Assessment and Plan: Patient chest pain-free and has history of persistently elevated troponin in the past. Elevated troponin peaked to 5.9 on admission He does have coronary disease status post multiple PCIs EKG reviewed Cardiology is following Continue aspirin statin Plavix Patient has been started on heparin infusion by Cardiology and recommend continuing until Thursday morning currently off heparin infusion. Will need to stay off heparin drip as he is having some urethral bleeding with clots Patient is chest pain-free Defer management to Cardiology (6) CAD (coronary artery disease): Code(s): I25.10 - Atherosclerotic heart disease of [place] coronary artery without angina pectoris Status: Acute Assessment and Plan: PCI in 2009, PCI of InStent restenoses in 2020 (7) Aortic stenosis: Qualifiers: Cardiac valve disease etiology: etiology unspecified Qualified Code(s): I35.0 - Nonrheumatic aortic (valve) stenosis Code(s): I35.0 - Nonrheumatic aortic (valve) stenosis Status: Acute Assessment and Plan: Status post TAVR in 2019 at [facility] (8) Type 2 diabetes mellitus with hyperglycemia: Qualifiers: 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
[2021-09-28 12:56] LABS: Glucose Point of Care 235 mg/dl (65-105)
[2021-09-28] MEDS: INSULIN ASPART (*BKC) 100 UNITS/ML SUB-Q ×2 (13:09→17:44)
[2021-09-28] MEDS: MAGNESIUM SULFATE 3GM/D5W100ML 3 GM/100 ML BAG IVPB (13:10)
[2021-09-28 16:39] LABS: Glucose Point of Care 238 mg/dl (65-105)
[2021-09-28 20:31] LABS: Glucose Point of Care 256 mg/dl (65-105)
[2021-09-28] MEDS: traZODone HCL 50 MG TABLET PO (20:58)
[2021-09-28] MEDS: PRAMIPEXOLE 1 MG TABLET PO (20:58)
[2021-09-28] MEDS: FLUoxetine HCL 20 MG CAPSULE PO (20:58)
[2021-09-28] MEDS: QUEtiapine FUMARATE 25 MG TABLET PO (20:58)
[2021-09-28] MEDS: METOPROLOL TARTRATE 25 MG TABLET PO (21:00)
[2021-09-29] VITALS (17 sets, daily range): BP systolic 135–149; BP diastolic 71–96; PULSE 68–98; RESP 16–27; TEMP 36.3–36.7; O2SAT 91–98
[2021-09-29] MEDS: IPRATROPIUM BR 0.02% INH SOLN 0.5 MG/2.5 ML VIAL INHALATION ×4 (02:22→21:07)
[2021-09-29] MEDS: ALBUTEROL SULFATE NEB 2.5 MG/0.5 ML INH INHALATION ×4 (02:22→21:07)
[2021-09-29 05:16] LABS: Hematocrit 31.7 % (42.0-52.0); Hemoglobin 9.7 g/dL (14.0-18.0); Mean Corpuscular HGB Conc 30.6 g/dl (32-36); Mean Corpuscular Hemoglobin 26.7 pg (26-34); Mean Corpuscular Volume 87.3 fl (80-100); Mean Platelet Volume 10.7 fl (7.4-10.4); Platelet Count Result 130 k/mm3 (150-375); Red Blood Count 3.63 M/mm3 (4.6-6.20); Red Cell Distribution Width 17.1 % (11.5-14.5); White Blood Count 9.6 K/mm3 (4.5-10.0)
[2021-09-29 05:37] LABS: Partial Thromboplastin Time 36.2 SECONDS (22.3-36.8)
[2021-09-29 05:42] LABS: Alanine Aminotransferase 16 U/L (4-50); Albumin Level 3.3 g/dL (3.5-5.1); Alkaline Phosphatase 59 U/L (38-126); Anion Gap 3 mmol/L (8-16); Aspartate Amino Transferase 24 U/L (17-59); Bilirubin,Total 0.5 mg/dL (0.2-1.3); Blood Urea Nitrogen 32 mg/dL (9-20); Calcium 8.5 mg/dL (8.4-10.2); Carbon Dioxide 30 mmol/L (22-30); Chloride 101 mmol/L (98-107); Creatine Kinase 87 U/L (55-170); Estimated CRCL calculation 55 ml/min; Estimated Glomerular Filt Rate 37; Glucose 216 mg/dL (65-110); Magnesium 2.1 mg/dL (1.6-2.3); Phosphorus 2.9 mg/dL (2.5-4.5); Potassium 3.9 mmol/L (3.4-5.0); Sodium 134 mmol/L (137-145)
[2021-09-29] MEDS: CENTRAL LINE FLUSH 10 ML IV PUSH ×3 (05:48→20:24)
[2021-09-29 08:07] LABS: Glucose Point of Care 224 mg/dl (65-105)
--- NOTE | 2021-09-29 08:18 | PM.PNNEP ---
Progress Note: A&P Assessment and Plan (1) Acute on chronic renal failure: Qualifiers: Acute renal failure type: unspecified Chronic kidney disease stage: stage 3 (moderate) Qualified Code(s): N17.9 - Acute kidney failure, unspecified; N18.3 - Chronic kidney disease, stage 3 (moderate) Code(s): N17.9 - Acute kidney failure, unspecified; N18.9 - Chronic kidney disease, unspecified Status: Acute Assessment and Plan: the patient has chronic kidney disease stage IIIB. His baseline GFR runs in the low 30s. This is due to diabetes and hypertension. The patient also has acute kidney injury. Renal ultrasound was normal. His urinalysis is bland. His blood pressure was low; this is resolved. He may have sepsis. His white count is down to normal. Blood cultures are negative so far. CPK has been okay. No sign of rhabdomyolysis. His creatinine is stable at 1.8. His baseline creatinine seems to balance between 1.0 and 1.8 Urine output is good. (2) Hypotension: Code(s): I95.9 - Hypotension, unspecified Status: Acute Assessment and Plan: Improved after IV fluids (3) Sepsis: Code(s): A41.9 - Sepsis, unspecified organism Status: Acute Assessment and Plan: The patient is on antibiotics. Blood cultures are negative so far, final results pending (4) Congestive heart failure: Qualifiers: Heart failure type: unspecified Heart failure chronicity: unspecified Qualified Code(s): I50.9 - Heart failure, unspecified Code(s): I50.9 - Heart failure, unspecified Status: Acute Assessment and Plan: echo shows a good ejection fraction and grade 1 diastolic dysfunction. In spite of untreated CPAP the right side of his heart looks surprisingly good. (5) Anemia: Code(s): D64.9 - Anemia, unspecified Status: Acute Assessment and Plan: Hemoglobin is 10.3. It is not low enough to require Epogen (6) Hypertension: Code(s): I10 - Essential (primary) hypertension Status: Chronic Assessment and Plan: His blood pressure is bit generous. All the Petterchak. (7) Acute respiratory failure with hypercapnia: Code(s): J96.02 - Acute respiratory failure with hypercapnia Status: Acute Assessment and Plan: he still has primarily respiratory acidosis. Bicarbonate level is higher now at 30. (8) Type 2 diabetes mellitus with hyperglycemia: Qualifiers: Diabetes mellitus residential insulin use: with terminal clerk use Qualified Code(s): E11.65 - Type 2 diabetes mellitus with hyperglycemia; Z79.4 - terminal clerk (current) use of insulin Code(s): E11.65 - Type 2 diabetes mellitus with hyperglycemia Status: Acute Assessment and Plan: On Accu-Cheks and sliding-scale insulin Subjective Date/time seen: 09/29/21 08:18 Interval history: The patient is out of the IMU. He is lying in bed comfortably. Eating well. No chest pain Exam Narrative: WDWN overweight male on the BiPAP mask in NAD skin no rash or subcu nodules head ncat lungs decreased breath sounds at the bases cor reg no rub or gallop abd BS+ nontender and soft ext no edema Objective Data Vital Signs Vital Signs: Vital Signs - 24 hr 09/28/21 10:00 09/28/21 12:00 09/28/21 13:40 Temperature 36.7 C Pulse Rate 96 90 95 Respiratory Rate 20 20 Blood Pressure 131/67 Pulse Oximetry 88 L 09/28/21 13:47 09/28/21 13:57 09/28/21 14:00 Temperature Pulse Rate 95 92 Respiratory Rate 20 Blood Pressure Pulse Oximetry 92 09/28/21 16:00 09/28/21 20:00 09/28/21 20:45 Temperature 36.7 C Pulse Rate 88 85 91 Respiratory Rate 20 22 H 20 Blood Pressure 144/71 H Pulse Oximetry 90 94 09/28/21 21:00 09/28/21 21:39 09/29/21 00:23 Temperature 36.7 C Pulse Rate 86 85 98 Respiratory Rate 20 22 H 18 Blood Pressure 135/96 H Pulse Oximet
[2021-09-29] MEDS: INSULIN ASPART (*BKC) 100 UNITS/ML SUB-Q ×3 (09:57→17:19)
[2021-09-29] MEDS: ASPIRIN 81 MG ENTERIC TABLET PO (09:58)
[2021-09-29] MEDS: CLOPIDOGREL BISULFATE 75 MG TABLET PO (09:58)
[2021-09-29] MEDS: CYANOCOBALAMIN 1,000 MCG TABLET 1000 MCG PO (09:59)
[2021-09-29] MEDS: PANTOPRAZOLE SODIUM IV 40 MG VIAL IV PUSH ×2 (09:59→20:23)
[2021-09-29] MEDS: METOPROLOL TARTRATE 25 MG TABLET PO ×2 (09:59→20:23)
--- NOTE | 2021-09-29 10:08 | PM.PNCARD ---
Progress Note: A&P Assessment and Plan (1) Non-ST elevation GA (NSTEMI): Code(s): I21.4 - Non-ST elevation (NSTEMI) myocardial infarction Status: Acute Assessment and Plan: Patient with history of CAD with prior myocardial infarction previous stent and or PCI. Elevation in troponin complicated by hypotension presentation, acute on chronic hypoxic and hypercarbic respiratory failure, acute on chronic renal failure and underlying CAD. Although possible acute plaque rupture less likely as the primary presenting pathology given the circumstances. Twelve lead EKG largely unchanged, no chest pain a giving worsening respiratory failure and elevated troponin recommend heparin infusion. -Continue aspirin, clopidogrel. I will add atorvastatin 80 mg p.o. daily -EF preserved on echocardiogram. Overall, patient is very complicated and high risk for cardiovascular complications given chronic troponin elevation. However, given his history and trend in troponin elevation will more aggressively manage for non ST-elevation GA. (2) Acute on chronic heart failure with preserved ejection fraction: Code(s): I50.33 - Acute on chronic diastolic (congestive) heart failure Status: Acute Assessment and Plan: Complicated by underlying CAD, acute hypoxic and hypercarbic respiratory failure, severe hypotension at presentation L improved. Cautious diuresis, monitor input and output, daily weight. Monitor renal function electrolytes closely. (3) [id number] kidney injury: Code(s): N17.9 - Acute kidney failure, unspecified; N18.9 - Chronic kidney disease, unspecified Status: Acute Assessment and Plan: Improving Appreciate Nephrology recommendations and involvement. (4) Status post transcatheter aortic valve replacement (TAVR) using bioprosthesis: Code(s): Z95.3 - Presence of xenogenic heart valve Status: Acute Assessment and Plan: Aortic valve area stable, preserved function by echocardiogram. (5) Acute respiratory failure with hypoxia: Code(s): J96.01 - Acute respiratory failure with hypoxia Status: Acute Assessment and Plan: Improving. As above, continue noninvasive positive pressure ventilation, diuresis. (6) JOE (obstructive sleep apnea): Code(s): G47.33 - Obstructive sleep apnea (adult) (pediatric) Status: Acute Assessment and Plan: As above. Patient has been without CPAP at home for several months no doubt complicating his clinical picture at this time. Continue noninvasive positive pressure ventilation. (7) Hypertension: Code(s): I10 - Essential (primary) hypertension Status: Chronic Assessment and Plan: metoprolol 25 mg p.o. b.i.d. (8) Hypomagnesemia: Code(s): E83.42 - Hypomagnesemia Status: Acute Assessment and Plan: Replaced Subjective Date/time seen: 09/29/21 10:08 Interval history: 71-year-old male admitted because of respiratory failure. Date of service 09/28/2021: He feels quite well today he states. No chest pain, shortness of breath. Date of service 09/29/19 22: No chest pain, shortness breath, syncope. Feels okay. No active complaint Review of Systems Review of Systems: All systems reviewed & are unremarkable except as noted in HPI and below Constitutional: Constitutional: Reports as per HPI and Reports no additional constitutional complaints Eyes: Eyes: Reports as per HPI and Reports no additional eye complaints ENT: Reports system reviewed and no additional complaints, except as documented and Reports as per HPI Cardiovascular: Cardiovascular: Reports as per HPI and Reports no additional cardiovascular complaints Respiratory: Respiratory: Reports as per HPI and Reports no additional respiratory complaints Gastrointestinal: Gastrointestinal: Reports as per HPI and Reports no additional gastrointestinal complaints Genitourinary: Genitourinary: Reports no addit
[2021-09-29 12:17] LABS: Glucose Point of Care 203 mg/dl (65-105)
--- NOTE | 2021-09-29 12:32 | WPDURCON ---
Assessment and Plan Assessment and plan (1) Urethral bleeding: Code(s): N36.8 - Other specified disorders of urethra Status: Acute Assessment and Plan: Bleeding has resolved at this time. His urine is grossly clear. No further intervention is planned. Most likely traumatic as well as being the Plavix. Will recommend a voiding trial when catheter no longer required for accurate I's and O's. Recent renal ultrasound and CT scan revealed normal kidneys without any evidence of hydronephrosis Urology Consult Note HPI Date Seen: 09/29/21 Requesting Physician: Ca Goodwin DO Primary Care Provider: Leo Doss MD Consult Narrative Narrative: Pascual Kowalski is a 71 year old male with multiple medical issues who was admitted with weakness. He has a strong coronary disease history is on chronic diuretics at home. Patient was initially admitted to the IMU and had a Palma catheter placed. Did not appear that he was in retention that time but was more placed for accurate I's and nose. Patient denies any significant voiding symptoms at home. He does sit to void. Patient is morbidly obese. We were asked to see him regarding some bleeding around the catheter. His urine however is clear. Time my evaluation the bleeding has stopped. Patient denies any prior history of hematuria. [facility] Past Medical History Medical History Acute respiratory failure Hospitalization June 06 through July 20, 2019 intubated 07/07/2019 through 07/14/2019 due to sepsis with septic shock, fluid overload, cellulitis with abscess of the left buttock Aortic stenosis severe on echocardiogram July 2019 Arthritis CAD (coronary artery disease) of artery bypass graft With history of stents x4. Dr. Ribeiro Cataract CHF (congestive heart failure) Echocardiogram 02/27: EF of 35%, LVH, akinetic apical segment, Aortic valve not well visualized CKD (chronic kidney disease) Depression Diabetes Follicular low grade B-cell lymphoma GERD (gastroesophageal reflux disease) Hypercholesterolemia Hypertension Mitral valve prolapse Morbid (severe) obesity due to excess calories Morbid obesity with BMI of 60.0-69.9, adult Non-Hodgkin lymphoma He is a patient of Dr. Oliveira. Peripheral neuropathy Pulmonary hypertension Moderate on echocardiogram from 2018 Restless legs syndrome Sleep apnea Patient does not use a CPAP at nighttime. Unspecified background retinopathy Surgical History Surgical History H/O arthroscopic knee surgery H/O cardiac catheterization H/O inguinal hernia repair History of appendectomy Hx of tonsillectomy S/P TAVR (transcatheter aortic valve replacement) Family History Family History Father Heart disease Diabetes mellitus Lung disease CHF (congestive heart failure) Atrial fibrillation Mother Breast cancer Dementia Son Aneurysm, aorta, abdominal, ruptured Acute myocardial infarction Other Family history of obesity Social History Social History Social History: Mr. Kowalski is and lives with his in [place], [place]. He designates his , Puja, as his surrogate decision maker and he wishes to be a full code. He denies alcohol, tobacco, and drug use. His primary care provider is Dr. Leo Doss. Smoking status: Never smoker Alcohol intake: former Substance use: never Gender identity (if verbalized by the patient): Male Sexual Orientation (if Verbalized by the Patient): Straight or Heterosexual Spiritual care concerns: No Agree to blood products: Yes Meds Home Medications and Allergies Home Medications Medication Instructions Recorded Confirmed Type aspirin 81 mg PO DAILY 05/31/19 09/24/21 History dip
--- NOTE | 2021-09-29 14:33 | PM.IMPN ---
Progress Note: A&P Assessment and Plan (1) Acute respiratory failure with hypercapnia: Code(s): J96.02 - Acute respiratory failure with hypercapnia Status: Acute Assessment and Plan: Acute on chronic respiratory failure secondary to restrictive lung disease from obesity hypoventilation syndrome, CHF questionable pneumonia Patient currently on nasal cannula. Patient was initiated on BiPAP in AVAPS mode with low FiO2 during the day and at night ABGs in mental status has improved Patient likely has baseline pCO2 in 60s and acidosis were secondary to his DAWNA He is alert oriented x3 Chest x-ray shows congestion and will continue diuresis with Lasix Continue bronchodilators Incentive spirometry Increase activity 09/29/2021 interval history: patient is 71-year-old male with history of coronary artery disease and [place], chronically elevated tropes, was seen by oil well fishing tool technician started on heparin drip until 09/28 however patient chest pain has improved and no EKG change and cardiac echo showed preserved LV function, patient is seen by Cardiology recommended to continue dual anti-platelet therapy with aspirin and Plavix and also added atrovastatin 80mg PO qd, patient with hypercarbic respiratory failure patient wore BiPAP last night, is feeling better today denies any complaint of chest pain or shortness of breath, patient also has urethral bleeding seen by urologist bleeding has resolved urine is clear, suspect local trauma and Plavix, will continue to monitor and further recommendation to follow. (2) Acute on chronic renal failure: Qualifiers: Acute renal failure type: unspecified Chronic kidney disease stage: stage 3 (moderate) Qualified Code(s): N17.9 - Acute kidney failure, unspecified; N18.3 - Chronic kidney disease, stage 3 (moderate) Code(s): N17.9 - Acute kidney failure, unspecified; N18.9 - Chronic kidney disease, unspecified Status: Acute Assessment and Plan: Patient has chronic kidney disease and history of acute kidney injury in the past from sepsis and hypertension Baseline creatinine is 1.5-2 Presented with creatinine of 2.7 Ultrasound with no hydronephrosis He has received IV fluids but creatinine remains unchanged Hold further IV fluids due to concern of volume overload Received Lasix. Will continue diuresis Creatinine slowly improving 1.8 today He is on IV fluids with bicarb allow for compensation for respiratory acidosis by Nephrology (3) Severe aortic stenosis: Code(s): I35.0 - Nonrheumatic aortic (valve) stenosis Status: Acute Assessment and Plan: Status post TAVR in 2020 (4) CHF (congestive heart failure): Code(s): I50.9 - Heart failure, unspecified Status: Chronic Assessment and Plan: EF of 35% on last echo Continue diuresis BNP elevated at 3020 Chest x-ray 09/28/2021 reviewed (5) Elevated troponin: Code(s): R77.8 - Other specified abnormalities of plasma proteins Status: Acute Assessment and Plan: Patient chest pain-free and has history of persistently elevated troponin in the past. Elevated troponin peaked to 5.9 on admission He does have coronary disease status post multiple PCIs EKG reviewed Cardiology is following Continue aspirin statin Plavix Patient has been started on heparin infusion by Cardiology and recommend continuing until Thursday morning currently off heparin infusion. Will need to stay off heparin drip as he is having some urethral bleeding with clots Patient is chest pain-free Defer management to Cardiology (6) CAD (coronary artery disease): Code(s): I25.10 - Atherosclerotic heart disease of [place] coronary artery without angina pectoris Status: Acute Assessment and Plan: PCI in 2010, PCI of InStent restenoses in 2020 (7) Aortic stenosis: Qualifiers: Cardiac valve disease etiology: etiology unspecified Qualified Code(s): I35.0 - Nonrheumatic aortic (valve) stenosis
[2021-09-29 16:58] LABS: Glucose Point of Care 219 mg/dl (65-105)
[2021-09-29 20:17] LABS: Glucose Point of Care 202 mg/dl (65-105)
[2021-09-29] MEDS: PRAMIPEXOLE 1 MG TABLET PO (20:23)
[2021-09-29] MEDS: QUEtiapine FUMARATE 25 MG TABLET PO (20:24)
[2021-09-29] MEDS: FLUoxetine HCL 20 MG CAPSULE PO (20:24)
[2021-09-29] MEDS: traZODone HCL 50 MG TABLET PO (20:24)
[2021-09-30] VITALS (14 sets, daily range): BP systolic 155–159; BP diastolic 73–75; PULSE 68–84; RESP 16–20; TEMP 36.3–36.7; O2SAT 92–99
[2021-09-30] MEDS: ONDANSETRON INJ 4 MG/2 ML VIAL IV PUSH (00:30)
[2021-09-30] MEDS: ALBUTEROL SULFATE NEB 2.5 MG/0.5 ML INH INHALATION ×4 (02:12→20:03)
[2021-09-30] MEDS: IPRATROPIUM BR 0.02% INH SOLN 0.5 MG/2.5 ML VIAL INHALATION ×4 (02:13→20:03)
[2021-09-30] MEDS: CENTRAL LINE FLUSH 10 ML IV PUSH ×3 (05:35→20:58)
[2021-09-30 05:42] LABS: Hematocrit 33.5 % (42.0-52.0); Hemoglobin 10.2 g/dL (14.0-18.0); Mean Corpuscular HGB Conc 30.4 g/dl (32-36); Mean Corpuscular Hemoglobin 26.7 pg (26-34); Mean Corpuscular Volume 87.7 fl (80-100); Mean Platelet Volume 10.8 fl (7.4-10.4); Platelet Count Result 154 k/mm3 (150-375); Red Blood Count 3.82 M/mm3 (4.6-6.20); Red Cell Distribution Width 17.3 % (11.5-14.5); White Blood Count 11.9 K/mm3 (4.5-10.0)
[2021-09-30 05:52] LABS: Partial Thromboplastin Time 33.2 SECONDS (22.3-36.8)
[2021-09-30 05:54] LABS: Alanine Aminotransferase 28 U/L (4-50); Albumin Level 3.4 g/dL (3.5-5.1); Alkaline Phosphatase 66 U/L (38-126); Anion Gap 6 mmol/L (8-16); Aspartate Amino Transferase 35 U/L (17-59); Bilirubin,Total 0.3 mg/dL (0.2-1.3); Blood Urea Nitrogen 31 mg/dL (9-20); Calcium 8.6 mg/dL (8.4-10.2); Carbon Dioxide 28 mmol/L (22-30); Chloride 101 mmol/L (98-107); Creatine Kinase 59 U/L (55-170); Estimated CRCL calculation 40 ml/min; Estimated Glomerular Filt Rate 35; Glucose 252 mg/dL (65-110); Potassium 4.3 mmol/L (3.4-5.0); Sodium 135 mmol/L (137-145)
[2021-09-30 07:56] LABS: Glucose Point of Care 251 mg/dl (65-105)
[2021-09-30] MEDS: INSULIN ASPART (*BKC) 100 UNITS/ML SUB-Q ×3 (08:19→16:46)
[2021-09-30] MEDS: ATORVASTATIN 40 MG TABLET 80 MG PO (09:18)
[2021-09-30] MEDS: PANTOPRAZOLE SODIUM IV 40 MG VIAL IV PUSH ×2 (09:18→20:51)
[2021-09-30] MEDS: METOPROLOL TARTRATE 25 MG TABLET PO ×2 (09:19→20:51)
[2021-09-30] MEDS: ASPIRIN 81 MG ENTERIC TABLET PO (09:19)
[2021-09-30] MEDS: CLOPIDOGREL BISULFATE 75 MG TABLET PO (09:19)
[2021-09-30 11:12] LABS: Glucose Point of Care 231 mg/dl (65-105)
--- NOTE | 2021-09-30 15:07 | PM.IMPN ---
Progress Note: A&P Assessment and Plan (1) Acute respiratory failure with hypercapnia: Code(s): J96.02 - Acute respiratory failure with hypercapnia Status: Acute Assessment and Plan: Patient presents with weakness and found to have acute respiratory failure with hypercarbia. Most likely related to being off his noninvasive ventilation at home. With frequent adjustments of the BiPAP, pH finally improved. Lactic acid level was slightly elevated at 2.2 but normalized on repeat. COVID was negative. Chest x-ray was clear on admission but today showing diffuse disease. Weaned off BiPAP; we continued BiPAP with naps and at bedtime. Acidosis felt combination of resp and metabolic process. Symptoms have resolved. Will notify Pulmonary the patient is moved out of the ICU and is close to discharge so home BiPAP can be arranged. (2) Acute hypotension: Code(s): I95.9 - Hypotension, unspecified Status: Acute Assessment and Plan: Blood pressure was 68/23 on admission. Probably accurate due to the similar findings on repeat measurements. With IV fluids, blood pressure has improved. Etiology unclear but sepsis seems less likely. He is not overly anemic to suggest acute blood loss. BCx NGTD. Procalcitonin 0.2. Consider cardiogenic but Echo showing EF 55-60% and Grade I Diastolic Dysfunction. He has acute kidney injury so would consider dehydration more likely given the marked improvement in BP with IV fluids. Antihypertensive medications were held. We continued to monitor blood pressure closely. We were able to add back his metoprolol. (3) Rhabdomyolysis: Code(s): M62.82 - Rhabdomyolysis Status: Acute Assessment and Plan: Total CK >16K but repeat the following day was 236. Suspect the original value was incorrect since subsequent values were about the samw at 222, 192. Doubtful patient had rhabdomyolysis. (4) Non-ST elevation CA (NSTEMI): Code(s): I21.4 - Non-ST elevation (NSTEMI) myocardial infarction Status: Acute Assessment and Plan: Troponin climbed to 5.9 [address]. [address]KG showing borderline ST-T wave changes in the high lateral leads. He appears to always have elevated Troponin. Echo showing EF 55-60% with grade I diastolic dysfunction and mild . Cardiology following appreciate their input. Will continue ASA and Plavix, Lipitor and Lopressor. (5) Acute renal insufficiency: Code(s): N28.9 - Disorder of kidney and ureter, unspecified Status: Acute Assessment and Plan: On admission, creatinine was 2.7 which is above his baseline. Patient was HoTN on presentation and suspect he was hypotensive at home resulting in his weakness. Hypotension could be related to his medications. Hypotension also may have caused ATN resulting in the acute kidney injury. CT scan shows kidneys are normal. Renal ultrasound normal. Nephrology following and appreciate their input.. Creatinine improved to 1.9. Appears to be back to baseline. Continue to monitor. (6) Urethral bleeding: Code(s): N36.8 - Other specified disorders of urethra Status: Acute Assessment and Plan: Patient developed urethral injury causing bleeding. This was complicated by being on heparin drip. Heparin was stopped. Urology was consulted and appreciate their input. Patient has Palma catheter in place. Voiding trial when okay with Urology. (7) Acute on chronic heart failure with preserved ejection fraction: Code(s): I50.33 - Acute on chronic diastolic (congestive) heart failure Status: Acute Assessment and Plan: As above. Echo showing EF 55-60% with grade I diastolic dysfunction and mild . CXR showing evidence of CHF. BNP 3000. He tolerated intermittent doses of diuretics. Clinically improved. (8) Anemia: Code(s): D64.9 - Anemia, unspecified Status: Acute Assessment and Plan: B12 level low and this was replaced. He is also not
--- NOTE | 2021-09-30 15:38 | PM.PNNEP ---
Progress Note: A&P Assessment and Plan (1) DAWNA (acute kidney injury): Code(s): N17.9 - Acute kidney failure, unspecified Status: Acute Assessment and Plan: suspect due to hemodynamic instability, hypotension, and possibly infection evaluation to date: renal ultrasound okay urinalysis bland CPK okay renal function stable at this time follow trend of repeat labs and UOP (2) Stage 3b chronic kidney disease: Code(s): N18.32 - Chronic kidney disease, stage 3b Status: Chronic Assessment and Plan: baseline creatinine runs ~ 1.0 - 1.8 this is due to his DM and HTN (3) Hypotension: Code(s): I95.9 - Hypotension, unspecified Status: Acute Assessment and Plan: resolved improvement noted s/p IVF resuscitation (4) Acute respiratory failure with hypercapnia: Code(s): J96.02 - Acute respiratory failure with hypercapnia Status: Acute Assessment and Plan: improving Pulmonary following (5) Anemia: Code(s): D64.9 - Anemia, unspecified Status: Acute Assessment and Plan: likely due in part to CKD H/H stable no need for ESAs at this time (6) Hypertension: Code(s): I10 - Essential (primary) hypertension Status: Chronic Assessment and Plan: BP was low on presentation reasonable control follow trend of hemodynamics (7) Type 2 diabetes mellitus with hyperglycemia: Qualifiers: Diabetes mellitus roasterman insulin use: with detention use Qualified Code(s): E11.65 - Type 2 diabetes mellitus with hyperglycemia; Z79.4 - terminal worker (current) use of insulin Code(s): E11.65 - Type 2 diabetes mellitus with hyperglycemia Status: Acute Assessment and Plan: follow Accu-Cheks on sliding-scale insulin Will continue to follow Subjective Date/time seen: 09/30/21 15:38 Chart reviewed - assuming care from Dr. Sheikh; overall, seems to be doing reasonably well; attempting to continue to use BiPAP overnight; respiratory status seems stable; some issues with nausea/vomiting but better now. Exam Narrative: General: WD/WN male in NAD Heart: normal S1 and S2; no rub Lungs: decreased breath sounds at bases Abdomen: soft, nontender, nondistended, positive bowel sounds Extremities: no cyanosis or clubbing; no edema Skin: warm and dry Objective Data Vital Signs Vital Signs: Vital Signs Temp Pulse Resp BP Pulse Ox 09/30/21 14:14 74 20 09/30/21 14:05 73 18 09/30/21 08:16 75 20 09/30/21 08:14 94 09/30/21 08:10 72 20 09/30/21 08:00 75 20 94 09/30/21 02:12 74 20 09/30/21 01:35 36.7 C 84 18 155/73 H 99 09/29/21 23:09 20 94 09/29/21 22:15 93 09/29/21 21:12 75 20 09/29/21 21:02 76 22 H 09/29/21 20:23 68 09/29/21 20:00 75 20 94 Intake/Output Intake/Output: Intake & Output 09/27/21 09/28/21 09/29/21 09/30/21 23:59 23:59 23:59 23:59 Intake Total 2150 1350 1180 980 Output Total 2700 1375 1200 950 Balance -550 -25 -20 30 Meds/Results Medications: Active Medications Generic Name Dose Route Start Last Admin Trade Name Narenq PRN Reason Stop Dose Admin Albuterol 2.5 mg 09/26/21 14:00 09/30/21 14:14 Albuterol Sulfate Neb 2.5 Mg/0.5 Ml Inh INHALATION 2.5 mg Q6HRT SCHUYLER Administration Aspirin 81 mg 09/25/21 09:00 09/30/21 09:19 Aspirin 81 Mg Enteric Tablet PO 81 mg DAILY SCHUYLER Administration Atorvastatin Calcium 80 mg 09/30/21 09:00 09/30/21 09:18 Atorvastatin 40 Mg Tablet PO 80 mg DAILY SCHUYLER Administration Clopidogrel Bisulfate 75 mg 09/25/21 09:00 09/30/21 09:19 Clopidogrel Bisulfate 75 Mg Tablet PO 75 mg DAILY SCHUYLER Administration Cyanocobalamin 1,000 mcg 09/29/21 09:00 09/30/21 09:36 Cyanocobalamin 1,000 Mcg Tablet PO Not Given QAM SCHUYLER Dextrose 12.5 gm 09/24/21 11:09 Dextrose 50% 25 Gm/50 Ml Syringe
--- NOTE | 2021-09-30 15:38 | P.PNNP_ITS ---
Progress Note: A&P Assessment and Plan (1) DAWNA (acute kidney injury): Code(s): N17.9 - Acute kidney failure, unspecified Status: Acute Assessment and Plan: * suspect due to hemodynamic instability, hypotension, and possibly infection * evaluation to date: * renal ultrasound okay * urinalysis bland * CPK okay * renal function stable at this time * follow trend of repeat labs and UOP (2) Stage 3b chronic kidney disease: Code(s): N18.32 - Chronic kidney disease, stage 3b Status: Chronic Assessment and Plan: * baseline creatinine runs ~ 1.0 - 1.8 * this is due to his DM and HTN (3) Hypotension: Code(s): I95.9 - Hypotension, unspecified Status: Acute Assessment and Plan: * resolved * improvement noted s/p IVF resuscitation (4) Acute respiratory failure with hypercapnia: Code(s): J96.02 - Acute respiratory failure with hypercapnia Status: Acute Assessment and Plan: * improving * Pulmonary following (5) Anemia: Code(s): D64.9 - Anemia, unspecified Status: Acute Assessment and Plan: * likely due in part to CKD * H/H stable * no need for ESAs at this time (6) Hypertension: Code(s): I10 - Essential (primary) hypertension Status: Chronic Assessment and Plan: * BP was low on presentation * reasonable control * follow trend of hemodynamics (7) Type 2 diabetes mellitus with hyperglycemia: Qualifiers: Diabetes mellitus jail insulin use: with vermin exterminator use Qualified Code(s): E11.65 - Type 2 diabetes mellitus with hyperglycemia; Z79.4 - nursing home (current) use of insulin Code(s): E11.65 - Type 2 diabetes mellitus with hyperglycemia Status: Acute Assessment and Plan: * follow Accu-Cheks * on sliding-scale insulin Will continue to follow Subjective Date/time seen: 09/30/21 15:38 Chart reviewed - assuming care from Dr. Sheikh; overall, seems to be doing reasonably well; attempting to continue to use BiPAP overnight; respiratory status seems stable; some issues with nausea/vomiting but better now. Exam Narrative: General: WD/WN male in NAD Heart: normal S1 and S2; no rub Lungs: decreased breath sounds at bases Abdomen: soft, nontender, nondistended, positive bowel sounds Extremities: no cyanosis or clubbing; no edema Skin: warm and dry Objective Data Vital Signs Vital Signs: Vital Signs Temp Pulse Resp BP Pulse Ox 09/30/21 14:14 74 20 09/30/21 14:05 73 18 09/30/21 08:16 75 20 09/30/21 08:14 94 09/30/21 08:10 72 20 09/30/21 08:00 75 20 94 09/30/21 02:12 74 20 09/30/21 01:35 36.7 C 84 18 155/73 H 99 09/29/21 23:09 20 94 09/29/21 22:15 93 09/29/21 21:12 75 20 09/29/21 21:02 76 22 H 09/29/21 20:23 68 09/29/21 20:00 75 20 94 Intake/Output Intake/Output: Intake & Output 09/27/21 09/28/21 09/29/21 09/30/21 23:59 23:59 23:59 23:59 Intake Total 2150 1350 1180 980 Output Total 2700 1375 1200 950 Balance -550 -25 -20 30 Meds/Results Medications: Active Medications Generic Nam
--- NOTE | 2021-09-30 15:59 | PM.PNPUL ---
Progress Note: A&P Assessment and Plan (1) Acute respiratory failure with hypercapnia: Code(s): J96.02 - Acute respiratory failure with hypercapnia Status: Acute Assessment and Plan: patient presented with acute on chronic hypercapnic respiratory failure related to congestive heart failure / ischemic cardiac event. Respiratory status is significantly improved. I would continue with current AVAPS settings at night. Will measure apnea link prior to discharge home. (2) Congestive heart failure: Qualifiers: Heart failure type: unspecified Heart failure chronicity: unspecified Qualified Code(s): I50.9 - Heart failure, unspecified Code(s): I50.9 - Heart failure, unspecified Status: Acute (3) [id number] kidney injury: Code(s): N17.9 - Acute kidney failure, unspecified; N18.9 - Chronic kidney disease, unspecified Status: Acute (4) Morbid obesity with body mass index (BMI) of 50.0 to 59.9 in adult: Code(s): E66.01 - Morbid (severe) obesity due to excess calories; Z68.43 - Body mass index [BMI] 50.0-59.9, adult Status: Acute Subjective Date/time seen: 09/30/21 15:59 patient was transferred back to medical [facility] following treatment for acute on chronic hypercapnic respiratory failure in the intensive care unit. A patient's respiratory failure was related to congestive heart failure related to ischemic cardiac event. He has got obstructive sleep apnea on CPAP. reportedly he was not using CPAP at home. Review of Systems Review of Systems: All systems reviewed & are unremarkable except as noted in HPI and below (HPI) Exam Narrative: GENERAL APPEARANCE: Well developed, well nourished, alert and cooperative, and appears to be in no acute distress While in bed and breathing room air SKIN: Inspection of the skin reveals no rashes, ulcerations or petechiae. HEENT: Sclerae anicteric and conjunctivae pink and moist. Extraocular movements were intact and pupils were equal, round. NECK: Supple. There was no thyroid enlargement, and no tenderness, or masses were felt. LUNGS: Auscultation of the lungs revealed distant breath sounds CARDIAC: There was a regular rate and rhythm without any murmurs. ABDOMEN: Soft and nontender with normal bowel sounds. There was no organomegaly. LYMPH NODES: No lymphadenopathy was appreciated in the neck, axillae or groin. EXTREMITIES: No cyanosis, clubbing or edema. NEUROLOGIC: Alert and oriented x 3. Normal affect. Objective Data Vital Signs Vital Signs: Vital Signs - 24 hr 09/29/21 16:00 09/29/21 20:00 09/29/21 20:23 Temperature 36.3 C L Pulse Rate 69 75 68 Respiratory Rate 18 20 Blood Pressure 149/76 H Pulse Oximetry 94 94 09/29/21 21:02 09/29/21 21:12 09/29/21 22:15 Temperature Pulse Rate 76 75 Respiratory Rate 22 H 20 Blood Pressure Pulse Oximetry 93 09/29/21 23:09 09/30/21 01:35 09/30/21 02:12 Temperature 36.7 C Pulse Rate 84 74 Respiratory Rate 20 18 20 Blood Pressure 155/73 H Pulse Oximetry 94 99 09/30/21 08:00 09/30/21 08:10 09/30/21 08:14 Temperature Pulse Rate 75 72 Respiratory Rate 20 20 Blood Pressure Pulse Oximetry 94 94 09/30/21 08:16 09/30/21 14:05 09/30/21 14:14 Temperature Pulse Rate 75 73 74 Respiratory Rate 20 18 20 Blood Pressure Pulse Oximetry Intake/Output Intake/Output: Intake & Output 09/27/21 09/28/21 09/29/21 09/30/21 23:59 23:59 23:59 23:59 Intake Total 2150 1350 1180 440 Output Total 2700 1375 1200 200 Balance -550 -25 -20 240 Meds/Results Medications: Active Medications Generic Name Dose Route Start Last Admin Trade Name Freq PRN Reason Stop Dose Admin Albuterol 2.5 mg 09/26/21 14:00 09/30/21 14:14 Albuterol Sulfate Neb 2.5 Mg/0.5 Ml Inh INHALATION 2.5 mg Q6HRT SCHUYLER Administration Aspirin 81 mg 09/25/21 09:00 09/30/21 09:19 Aspirin 81 Mg Enteric Tablet PO 81 mg DAILY SCHUYLER Administrat
[2021-09-30 16:20] LABS: Glucose Point of Care 213 mg/dl (65-105)
[2021-09-30 16:34] LABS: Alveolar/Arterial O2 Gradient 26.9 mmHg; Base Excess ABG -0.5 mEq/l (+/-2.0); Fractional Inspired Oxygen 21 %; HCO3 ABG 25.6 mEq/l (22.0-26.0); Modified Allen's Test Pass; Oxygen Content ABG 15.2 %vol (16.0-22.0); Oxygen Saturation ABG 91.5 % (95.0-100.0); Oxyhemoglobin 90.4 % THb (90.0-100.0); PCO2 ABG 48.3 mmHg (35.0-45.0); Site Drawn RIGHT RADIAL; Total Hemoglobin 11.9 g/dL (12.0-18.0); pH ABG 7.342 (7.350-7.450)
[2021-09-30 16:35] LABS: Device ROOM AIR
[2021-09-30] MEDS: FERROUS SULFATE 324 MG TABLET PO (16:45)
[2021-09-30] MEDS: QUEtiapine FUMARATE 25 MG TABLET PO (20:51)
[2021-09-30] MEDS: PRAMIPEXOLE 1 MG TABLET PO (20:51)
[2021-09-30] MEDS: traZODone HCL 50 MG TABLET PO (20:51)
[2021-09-30] MEDS: INSULIN GLARGINE (*BKC) 100 UNITS/ML 20 UNITS SUB-Q (20:56)
[2021-09-30] MEDS: FLUoxetine HCL 20 MG CAPSULE PO (20:57)
[2021-09-30 21:02] LABS: Glucose Point of Care 284 mg/dl (65-105)
[2021-10-01] VITALS (16 sets, daily range): BP systolic 121–158; BP diastolic 62–88; PULSE 66–97; RESP 16–18; TEMP 36.5–36.8; O2SAT 94–97
[2021-10-01] MEDS: ALBUTEROL SULFATE NEB 2.5 MG/0.5 ML INH INHALATION ×4 (02:03→21:05)
[2021-10-01] MEDS: IPRATROPIUM BR 0.02% INH SOLN 0.5 MG/2.5 ML VIAL INHALATION ×4 (02:03→21:05)
[2021-10-01] MEDS: CENTRAL LINE FLUSH 10 ML IV PUSH ×3 (05:23→20:37)
[2021-10-01 05:31] LABS: Hematocrit 32.9 % (42.0-52.0); Hemoglobin 9.8 g/dL (14.0-18.0); Mean Corpuscular HGB Conc 29.8 g/dl (32-36); Mean Corpuscular Hemoglobin 26.3 pg (26-34); Mean Corpuscular Volume 88.4 fl (80-100); Mean Platelet Volume 10.8 fl (7.4-10.4); Platelet Count Result 179 k/mm3 (150-375); Red Blood Count 3.72 M/mm3 (4.6-6.20); Red Cell Distribution Width 17.3 % (11.5-14.5); White Blood Count 12.2 K/mm3 (4.5-10.0)
[2021-10-01 05:43] LABS: Alanine Aminotransferase 28 U/L (4-50); Albumin Level 3.1 g/dL (3.5-5.1); Alkaline Phosphatase 62 U/L (38-126); Anion Gap 5 mmol/L (8-16); Aspartate Amino Transferase 26 U/L (17-59); Bilirubin,Total 0.3 mg/dL (0.2-1.3); Blood Urea Nitrogen 32 mg/dL (9-20); Calcium 8.8 mg/dL (8.4-10.2); Carbon Dioxide 28 mmol/L (22-30); Chloride 101 mmol/L (98-107); Estimated CRCL calculation 46 ml/min; Estimated Glomerular Filt Rate 40; Glucose 201 mg/dL (65-110); Magnesium 1.9 mg/dL (1.6-2.3); Potassium 3.9 mmol/L (3.4-5.0); Sodium 134 mmol/L (137-145)
[2021-10-01 07:40] LABS: Glucose Point of Care 210 mg/dl (65-105)
[2021-10-01] MEDS: FERROUS SULFATE 324 MG TABLET PO ×2 (08:20→17:00)
[2021-10-01] MEDS: INSULIN ASPART (*BKC) 100 UNITS/ML SUB-Q ×3 (08:20→17:00)
--- NOTE | 2021-10-01 08:20 | PCNWS ---
Weekly nutritional screen. Patient is tolerating current diet with adequate intake. No weight loss reported. No nutritional needs at this time.
[2021-10-01] MEDS: PANTOPRAZOLE 40 MG TABLET PO ×2 (09:20→20:29)
[2021-10-01] MEDS: METOPROLOL TARTRATE 25 MG TABLET PO ×2 (09:21→20:30)
[2021-10-01] MEDS: ATORVASTATIN 40 MG TABLET 80 MG PO (09:21)
[2021-10-01] MEDS: ASPIRIN 81 MG ENTERIC TABLET PO (09:21)
[2021-10-01] MEDS: CLOPIDOGREL BISULFATE 75 MG TABLET PO (09:21)
[2021-10-01] MEDS: CYANOCOBALAMIN 1,000 MCG TABLET 1000 MCG PO (09:21)
--- NOTE | 2021-10-01 09:47 | PCRCNOTE ---
Order for overnight oximetry testing post discharge faxed to patient's DME provider, [facility] ([facility]).
--- NOTE | 2021-10-01 09:49 | PM.PNPUL ---
Progress Note: A&P Assessment and Plan (1) Acute respiratory failure with hypercapnia: Code(s): J96.02 - Acute respiratory failure with hypercapnia Status: Acute Assessment and Plan: patient presented with acute on chronic hypercapnic respiratory failure related to congestive heart failure / ischemic cardiac event. Respiratory status is significantly improved. On arterial blood gases the patient had borderline low PA O2, and ApneaLink on AVAPS showed significant nocturnal oxyhemoglobin desaturation with a saturation less than 88% lasting over 190 minutes. On chest x-ray there was still evidence of lung congestion. patient is not ready to be discharged home. I would add supplemental oxygen 3 liters/minute and continue with both oxygen and AVAP support at night. Patient has obstructive sleep apnea and has been on CPAP but reportedly was not using CPAP at home. After discharging him home we will measure apnea link at home while on CPAP as he may need supplemental oxygen. (2) Congestive heart failure: Qualifiers: Heart failure type: unspecified Heart failure chronicity: unspecified Qualified Code(s): I50.9 - Heart failure, unspecified Code(s): I50.9 - Heart failure, unspecified Status: Acute (3) Azcaj-bw-psaqnew kidney injury: Code(s): N17.9 - Acute kidney failure, unspecified; N18.9 - Chronic kidney disease, unspecified Status: Acute (4) Morbid obesity with body mass index (BMI) of 50.0 to 59.9 in adult: Code(s): E66.01 - Morbid (severe) obesity due to excess calories; Z68.43 - Body mass index [BMI] 50.0-59.9, adult Status: Acute Subjective Date/time seen: 10/01/21 09:49 patient has no new respiratory symptoms. Had apnea link on room air and AVAPS last night. currently on room air. Review of Systems Review of Systems: All systems reviewed & are unremarkable except as noted in HPI and below (HPI) Exam Narrative: GENERAL APPEARANCE: Well developed, well nourished, alert and cooperative, and appears to be in no acute distress While in bed and breathing room air SKIN: Inspection of the skin reveals no rashes, ulcerations or petechiae. HEENT: Sclerae anicteric and conjunctivae pink and moist. Extraocular movements were intact and pupils were equal, round. NECK: Supple. There was no thyroid enlargement, and no tenderness, or masses were felt. LUNGS: Auscultation of the lungs revealed distant breath sounds CARDIAC: There was a regular rate and rhythm without any murmurs. ABDOMEN: Soft and nontender with normal bowel sounds. There was no organomegaly. LYMPH NODES: No lymphadenopathy was appreciated in the neck, axillae or groin. EXTREMITIES: No cyanosis, clubbing or edema. NEUROLOGIC: Alert and oriented x 3. Normal affect. Objective Data Vital Signs Vital Signs: Vital Signs - 24 hr 09/30/21 14:05 09/30/21 14:14 09/30/21 20:00 Temperature Pulse Rate 73 74 73 Respiratory Rate 18 20 16 Blood Pressure Pulse Oximetry 92 09/30/21 20:08 09/30/21 20:11 09/30/21 20:16 Temperature Pulse Rate 74 70 Respiratory Rate 16 16 Blood Pressure Pulse Oximetry 94 09/30/21 20:51 09/30/21 21:03 10/01/21 02:03 Temperature 36.3 C L Pulse Rate 68 73 70 Respiratory Rate 16 16 Blood Pressure 159/75 H Pulse Oximetry 92 10/01/21 02:12 10/01/21 07:58 10/01/21 08:00 Temperature 36.8 C Pulse Rate 71 66 74 Respiratory Rate 16 16 16 Blood Pressure 121/62 Pulse Oximetry 97 94 10/01/21 08:10 10/01/21 08:23 Temperature Pulse Rate 73 74 Respiratory Rate 16 16 Blood Pressure Pulse Oximetry 94 Intake/Output Intake/Output: Intake & Output 09/28/21 09/29/21 09/30/21 10/01/21 23:59 23:59 23:59 23:59 Intake Total 1350 1180 980 270 Output Total 1375 1200 950 850 Balance -25 -20 30 -580 Meds/Results Medications: Active Medications Generic Name Dose Route Start Last Admin Trade Name Freq PRN Reason Stop Dose Ad
--- NOTE | 2021-10-01 10:52 | P.PNNP_ITS ---
Progress Note: A&P Assessment and Plan (1) DAWNA (acute kidney injury): Code(s): N17.9 - Acute kidney failure, unspecified Status: Acute Assessment and Plan: * suspect due to hemodynamic instability, hypotension, and possibly infection * evaluation to date: * renal ultrasound okay * urinalysis bland * CPK okay * renal function stable at this time * follow trend of repeat labs and UOP (2) Stage 3b chronic kidney disease: Code(s): N18.32 - Chronic kidney disease, stage 3b Status: Chronic Assessment and Plan: * baseline creatinine runs ~ 1.0 - 1.8 * this is due to his DM and HTN (3) Hypotension: Code(s): I95.9 - Hypotension, unspecified Status: Acute Assessment and Plan: * resolved * improvement noted s/p IVF resuscitation (4) Acute respiratory failure with hypercapnia: Code(s): J96.02 - Acute respiratory failure with hypercapnia Status: Acute Assessment and Plan: * improving * Pulmonary following (5) Anemia: Code(s): D64.9 - Anemia, unspecified Status: Acute Assessment and Plan: * likely due in part to CKD * H/H stable * no need for ESAs at this time (6) Hypertension: Code(s): I10 - Essential (primary) hypertension Status: Chronic Assessment and Plan: * BP was low on presentation * reasonable control currently * follow trend of hemodynamics (7) Type 2 diabetes mellitus with hyperglycemia: Qualifiers: Diabetes mellitus long-term insulin use: with terminologist use Qualified Code(s): E11.65 - Type 2 diabetes mellitus with hyperglycemia; 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 Sheikh for ongoing CKD management. Will continue to follow Subjective Date/time seen: 10/01/21 10:52 Appears to be doing reasonably well at the time of my visit; sitting up in chair in no distress; respiratory status/breathing is stable if not better at this ti me; no apparent distress voiced; no issues/events overnight or earlier this morning to report. Exam Narrative: General: WD/WN male in NAD Heart: normal S1 and S2; no rub Lungs: decreased breath sounds at bases Abdomen: soft, nontender, nondistended, positive bowel sounds Extremities: no cyanosis or clubbing; no edema Skin: warm and intact Objective Data Vital Signs Vital Signs: Vital Signs Temp Pulse Resp BP Pulse Ox 10/01/21 08:23 74 16 94 10/01/21 08:10 73 16 10/01/21 08:00 74 16 94 10/01/21 07:58 36.8 C 66 16 121/62 97 10/01/21 02:12 71 16 10/01/21 02:03 70 16 09/30/21 21:03 36.3 C L 73 16 159/75 H 92 09/30/21 20:51 68 09/30/21 20:16 70 16 09/30/21 20:11 94 09/30/21 20:08 74 16 09/30/21 20:00 73 16 92 09/30/21 14:14 74 20 09/30/21 14:05 73 18 Intake/Output Intake/Output: Intake & Output 09/28/21 09/29/21 09/30/21 10/01/21 23:59 23:59 23:59 23:59
--- NOTE | 2021-10-01 10:52 | PM.PNNEP ---
Progress Note: A&P Assessment and Plan (1) DAWNA (acute kidney injury): Code(s): N17.9 - Acute kidney failure, unspecified Status: Acute Assessment and Plan: suspect due to hemodynamic instability, hypotension, and possibly infection evaluation to date: renal ultrasound okay urinalysis bland CPK okay renal function stable at this time follow trend of repeat labs and UOP (2) Stage 3b chronic kidney disease: Code(s): N18.32 - Chronic kidney disease, stage 3b Status: Chronic Assessment and Plan: baseline creatinine runs ~ 1.0 - 1.8 this is due to his DM and HTN (3) Hypotension: Code(s): I95.9 - Hypotension, unspecified Status: Acute Assessment and Plan: resolved improvement noted s/p IVF resuscitation (4) Acute respiratory failure with hypercapnia: Code(s): J96.02 - Acute respiratory failure with hypercapnia Status: Acute Assessment and Plan: improving Pulmonary following (5) Anemia: Code(s): D64.9 - Anemia, unspecified Status: Acute Assessment and Plan: likely due in part to CKD H/H stable no need for ESAs at this time (6) Hypertension: Code(s): I10 - Essential (primary) hypertension Status: Chronic Assessment and Plan: BP was low on presentation reasonable control currently follow trend of hemodynamics (7) Type 2 diabetes mellitus with hyperglycemia: Qualifiers: Diabetes mellitus moth exterminator insulin use: with senior care use Qualified Code(s): E11.65 - Type 2 diabetes mellitus with hyperglycemia; 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 Sheikh for ongoing CKD management. Will continue to follow Subjective Date/time seen: 10/01/21 10:52 Appears to be doing reasonably well at the time of my visit; sitting up in chair in no distress; respiratory status/breathing is stable if not better at this time; no apparent distress voiced; no issues/events overnight or earlier this morning to report. Exam Narrative: General: WD/WN male in NAD Heart: normal S1 and S2; no rub Lungs: decreased breath sounds at bases Abdomen: soft, nontender, nondistended, positive bowel sounds Extremities: no cyanosis or clubbing; no edema Skin: warm and intact Objective Data Vital Signs Vital Signs: Vital Signs Temp Pulse Resp BP Pulse Ox 10/01/21 08:23 74 16 94 10/01/21 08:10 73 16 10/01/21 08:00 74 16 94 10/01/21 07:58 36.8 C 66 16 121/62 97 10/01/21 02:12 71 16 10/01/21 02:03 70 16 09/30/21 21:03 36.3 C L 73 16 159/75 H 92 09/30/21 20:51 68 09/30/21 20:16 70 16 09/30/21 20:11 94 09/30/21 20:08 74 16 09/30/21 20:00 73 16 92 09/30/21 14:14 74 20 09/30/21 14:05 73 18 Intake/Output Intake/Output: Intake & Output 09/28/21 09/29/21 09/30/21 10/01/21 23:59 23:59 23:59 23:59 Intake Total 1350 1180 980 270 Output Total 1375 1200 950 850 Balance -25 -20 30 -580 Meds/Results Medications: Active Medications Generic Name Dose Route Start Last Admin Trade Name Gely PRN Reason Stop Dose Admin Albuterol 2.5 mg 10/01/21 08:00 10/01/21 08:22 Albuterol Sulfate Neb 2.5 Mg/0.5 Ml Inh INHALATION 2.5 mg [id number] SCHUYLER Administration Aspirin 81 mg 09/25/21 09:00 10/01/21 09:21 Aspirin 81 Mg Enteric Tablet PO 81 mg DAILY SCHUYLER Administration Atorvastatin Calcium 80 mg 09/30/21 09:00 10/01/21 09:21 Atorvastatin 40 Mg Tablet PO 80 mg DAILY SCHUYLER Administration Clopidogrel Bisulfate 75 mg 09/25/21 09:00 10/01/21 09:21 Clopidogrel Bisulfate 75 Mg Tablet PO 75
[2021-10-01 12:01] LABS: Glucose Point of Care 218 mg/dl (65-105)
--- NOTE | 2021-10-01 13:58 | PM.IMPN ---
Progress Note: A&P Assessment and Plan (1) Acute on chronic heart failure with preserved ejection fraction: Code(s): I50.33 - Acute on chronic diastolic (congestive) heart failure Status: Acute Assessment and Plan: Echo showing EF 55-60% with grade I diastolic dysfunction and mild . BNP 3000. He tolerated intermittent doses of diuretics. CXR today showing Cardiomegaly, congestion, mild bilateral edema or pneumonia. Pulmonary feels patient not ready for discharge. Will give Lasix again today and tomorrow. Plan to resume home lasix at discharge. (2) Acute respiratory failure with hypercapnia: Code(s): J96.02 - Acute respiratory failure with hypercapnia Status: Acute Assessment and Plan: Patient presents with weakness and found to have acute respiratory failure with hypercarbia. Most likely related to being off his noninvasive ventilation at home. With frequent adjustments of the BiPAP, pH finally improved. Lactic acid level was slightly elevated at 2.2 but normalized on repeat. COVID was negative. Chest x-ray was clear on admission but today showing diffuse disease. Weaned off BiPAP; we continued BiPAP with naps and at bedtime. Acidosis felt combination of resp and metabolic process. Symptoms have resolved. Pulmonary arranging for home BiPAP. (3) Acute hypotension: Code(s): I95.9 - Hypotension, unspecified Status: Acute Assessment and Plan: Blood pressure was 68/23 on admission. Probably accurate due to the similar findings on repeat measurements. With IV fluids, blood pressure has improved. Etiology unclear but sepsis seems less likely. He is not overly anemic to suggest acute blood loss. BCx NGTD. Procalcitonin 0.2. Consider cardiogenic but Echo showing EF 55-60% and Grade I Diastolic Dysfunction. He has acute kidney injury so would consider dehydration more likely given the marked improvement in BP with IV fluids. Antihypertensive medications were held. We continued to monitor blood pressure closely. We were able to add back his metoprolol. (4) Rhabdomyolysis: Code(s): M62.82 - Rhabdomyolysis Status: Acute Assessment and Plan: Total CK >16K but repeat the following day was 236. Suspect the original value was incorrect since subsequent values were about the same at 222, 192. Doubtful patient had rhabdomyolysis. (5) Non-ST elevation OK (NSTEMI): Code(s): I21.4 - Non-ST elevation (NSTEMI) myocardial infarction Status: Acute Assessment and Plan: Troponin climbed to 5.9. EKG showing borderline ST-T wave changes in the high lateral leads. He appears to always have elevated Troponin. Echo showing EF 55-60% with grade I diastolic dysfunction and mild . Cardiology following appreciate their input. Will continue ASA and Plavix, Lipitor and Lopressor. (6) Acute renal insufficiency: Code(s): N28.9 - Disorder of kidney and ureter, unspecified Status: Acute Assessment and Plan: On admission, creatinine was 2.7 which is above his baseline. Patient was HoTN on presentation and suspect he was hypotensive at home resulting in his weakness. Hypotension could be related to his medications. Hypotension also may have caused ATN resulting in the acute kidney injury. CT scan shows kidneys are normal. Renal ultrasound normal. Nephrology following and appreciate their input. Creatinine improved to 1.7. Appears to be back to baseline.Monitor closely on Lasix. Continue to monitor. (7) Urethral bleeding: Code(s): N36.8 - Other specified disorders of urethra Status: Acute Assessment and Plan: Patient developed urethral injury causing bleeding. This was complicated by being on heparin drip. Heparin was stopped. Urology was consulted and appreciate their input. Patient had Palma removed and toelrated this well. No evidence of bleeding (8) Anemia: Code(s): D64.9 - Anemia, unspecified Status:
[2021-10-01] MEDS: FUROSEMIDE INJ 40 MG/4 ML VIAL IV PUSH (15:52)
[2021-10-01 16:58] LABS: Glucose Point of Care 211 mg/dl (65-105)
[2021-10-01] MEDS: traZODone HCL 50 MG TABLET PO (20:29)
[2021-10-01] MEDS: FLUoxetine HCL 20 MG CAPSULE PO (20:29)
[2021-10-01] MEDS: INSULIN GLARGINE (*BKC) 100 UNITS/ML 25 UNITS SUB-Q (20:29)
[2021-10-01] MEDS: QUEtiapine FUMARATE 25 MG TABLET PO (20:29)
[2021-10-01] MEDS: PRAMIPEXOLE 1 MG TABLET PO (20:30)
[2021-10-01 21:41] LABS: Glucose Point of Care 177 mg/dl (65-105)
[2021-10-02] VITALS (10 sets, daily range): BP systolic 130–161; BP diastolic 68–81; PULSE 56–82; RESP 16–20; TEMP 36.4–36.6; O2SAT 96–100
[2021-10-02 05:26] LABS: Anion Gap 4 mmol/L (8-16); Blood Urea Nitrogen 31 mg/dL (9-20); Calcium 8.4 mg/dL (8.4-10.2); Carbon Dioxide 29 mmol/L (22-30); Chloride 101 mmol/L (98-107); Estimated CRCL calculation 43 ml/min; Estimated Glomerular Filt Rate 37; Glucose 178 mg/dL (65-110); Potassium 3.8 mmol/L (3.4-5.0); Sodium 134 mmol/L (137-145)
[2021-10-02] MEDS: CENTRAL LINE FLUSH 10 ML IV PUSH ×2 (06:05→14:48)
[2021-10-02 07:29] LABS: Glucose Point of Care 110 mg/dl (65-105)
[2021-10-02] MEDS: IPRATROPIUM BR 0.02% INH SOLN 0.5 MG/2.5 ML VIAL INHALATION (08:20)
[2021-10-02] MEDS: ALBUTEROL SULFATE NEB 2.5 MG/0.5 ML INH INHALATION (08:21)
[2021-10-02] MEDS: FERROUS SULFATE 324 MG TABLET PO ×2 (09:44→17:20)
[2021-10-02] MEDS: ATORVASTATIN 40 MG TABLET 80 MG PO (09:44)
[2021-10-02] MEDS: CLOPIDOGREL BISULFATE 75 MG TABLET PO (09:44)
[2021-10-02] MEDS: METOPROLOL TARTRATE 25 MG TABLET PO ×2 (09:44→20:42)
[2021-10-02] MEDS: CYANOCOBALAMIN 1,000 MCG TABLET 1000 MCG PO (09:44)
[2021-10-02] MEDS: ASPIRIN 81 MG ENTERIC TABLET PO (09:44)
[2021-10-02] MEDS: PANTOPRAZOLE 40 MG TABLET PO ×2 (09:44→20:42)
--- NOTE | 2021-10-02 09:46 | PM.PNPUL ---
Progress Note: A&P Assessment and Plan (1) Acute respiratory failure with hypercapnia: Code(s): J96.02 - Acute respiratory failure with hypercapnia Status: Acute Assessment and Plan: patient presented with acute on chronic hypercapnic respiratory failure related to congestive heart failure / ischemic cardiac event. Respiratory status is significantly improved. On arterial blood gases the patient had borderline low PA O2, and ApneaLink on AVAPS showed significant nocturnal oxyhemoglobin desaturation with a saturation less than 88% lasting over 190 minutes. On chest x-ray there was still evidence of lung congestion. Patient was also placed on supplemental oxygen last night. I would add supplemental oxygen 3 liters/minute and continue with both oxygen and AVAP support at night. will a get a two view chest x-ray in a.m. will consider DC home in a.m. if chest x-ray showed further clearing of lung infiltrates. Patient has obstructive sleep apnea and has been on CPAP but reportedly was not using CPAP at home. After discharging him home we will measure apnea link at home while on CPAP as he may need supplemental oxygen. (2) Congestive heart failure: Qualifiers: Heart failure type: unspecified Heart failure chronicity: unspecified Qualified Code(s): I50.9 - Heart failure, unspecified Code(s): I50.9 - Heart failure, unspecified Status: Acute (3) Okfur-tz-erqougc kidney injury: Code(s): N17.9 - Acute kidney failure, unspecified; N18.9 - Chronic kidney disease, unspecified Status: Acute (4) Morbid obesity with body mass index (BMI) of 50.0 to 59.9 in adult: Code(s): E66.01 - Morbid (severe) obesity due to excess calories; Z68.43 - Body mass index [BMI] 50.0-59.9, adult Status: Acute Subjective Date/time seen: 10/02/21 09:46 Patient reports no new respiratory symptoms. Sitting in chair, breathing room air. He slept well last night on BiPAP and supplemental oxygen. Willing to go home Review of Systems Review of Systems: All systems reviewed & are unremarkable except as noted in HPI and below (HPI) Exam Narrative: GENERAL APPEARANCE: Well developed, well nourished, alert and cooperative, and appears to be in no acute distress While in bed and breathing room air SKIN: Inspection of the skin reveals no rashes, ulcerations or petechiae. HEENT: Sclerae anicteric and conjunctivae pink and moist. Extraocular movements were intact and pupils were equal, round. NECK: Supple. There was no thyroid enlargement, and no tenderness, or masses were felt. LUNGS: Auscultation of the lungs revealed distant breath sounds CARDIAC: There was a regular rate and rhythm without any murmurs. ABDOMEN: Soft and nontender with normal bowel sounds. There was no organomegaly. LYMPH NODES: No lymphadenopathy was appreciated in the neck, axillae or groin. EXTREMITIES: No cyanosis, clubbing or edema. NEUROLOGIC: Alert and oriented x 3. Normal affect. Objective Data Vital Signs Vital Signs: Vital Signs - 24 hr 10/01/21 14:37 10/01/21 14:39 10/01/21 14:47 Temperature Pulse Rate 72 73 Respiratory Rate 16 16 Blood Pressure Pulse Oximetry 95 10/01/21 16:00 10/01/21 20:30 10/01/21 20:53 Temperature 36.5 C 36.6 C Pulse Rate 67 97 68 Respiratory Rate 16 18 Blood Pressure 136/74 158/88 H Pulse Oximetry 97 96 10/01/21 21:06 10/01/21 21:14 10/01/21 21:25 Temperature Pulse Rate 69 72 Respiratory Rate 17 16 Blood Pressure Pulse Oximetry 96 10/01/21 23:13 10/02/21 03:18 10/02/21 05:37 Temperature 36.6 C Pulse Rate 86 82 56 L Respiratory Rate 18 18 19 Blood Pressure 137/70 Pulse Oximetry 97 96 99 10/02/21 08:21 10/02/21 08:27 Temperature Pulse Rate 70 72 Respiratory Rate 17 17 Blood Pressure Pulse Oximetry 96 Intake/Output Intake/Output: Intake & Output 09/29/21 09/30/21 10/01/21 10/02/21 23:59 23:59 23:59 23:59 Intake Total 118
[2021-10-02] MEDS: FUROSEMIDE INJ 40 MG/4 ML VIAL IV PUSH ×2 (09:48→17:18)
[2021-10-02] MEDS: GABAPENTIN 300 MG CAPSULE 600 MG PO ×2 (11:12→20:42)
[2021-10-02 11:55] LABS: Glucose Point of Care 215 mg/dl (65-105)
[2021-10-02] MEDS: INSULIN ASPART (*BKC) 100 UNITS/ML SUB-Q (12:10)
--- NOTE | 2021-10-02 12:32 | P.PNNP_ITS ---
Progress Note: A&P Assessment and Plan (1) DAWNA (acute kidney injury): Code(s): N17.9 - Acute kidney failure, unspecified Status: Acute Assessment and Plan: * resolving * suspect due to hemodynamic instability, hypotension, and possibly infection * evaluation to date: * renal ultrasound okay * urinalysis bland * CPK okay * renal function stable at this time * follow trend of repeat labs and UOP (2) Stage 3b chronic kidney disease: Code(s): N18.32 - Chronic kidney disease, stage 3b Status: Chronic Assessment and Plan: * baseline creatinine runs ~ 1.0 - 1.8 * this is due to his DM and HTN (3) Hypotension: Code(s): I95.9 - Hypotension, unspecified Status: Acute Assessment and Plan: * resolved * improvement noted s/p IVF resuscitation (4) Acute respiratory failure with hypercapnia: Code(s): J96.02 - Acute respiratory failure with hypercapnia Status: Acute Assessment and Plan: * improving * Pulmonary following (5) Anemia: Code(s): D64.9 - Anemia, unspecified Status: Acute Assessment and Plan: * likely due in part to CKD * H/H stable * no need for ESAs at this time (6) Hypertension: Code(s): I10 - Essential (primary) hypertension Status: Chronic Assessment and Plan: * BP was low on presentation * reasonable control currently * follow trend of hemodynamics (7) Type 2 diabetes mellitus with hyperglycemia: Qualifiers: Diabetes mellitus detention insulin use: with detention use Qualified Code(s): E11.65 - Type 2 diabetes mellitus with hyperglycemia; Z79.4 - correction (current) use of insulin Code(s): E11.65 - Type 2 diabetes mellitus with hyperglycemia Status: Acute Assessment and Plan: * follow Accu-Cheks * on sliding-scale insulin Will continue to follow intermittently. Subjective Date/time seen: 10/02/21 12:32 Started on diuretic therapy in an attempt to further optimize respiratory status -- reasonably diuresis noted in the last 24 hours; breathing appears to be improving each day; no apparnet distress noted; no events/issues overnight or earlier this morning. Exam Narrative: General: WD/WN male in NAD Heart: normal S1 and S2; no rub Lungs: decreased breath sounds at bases Abdomen: soft, nontender, nondistended, positive bowel sounds Extremities: no cyanosis or clubbing; no edema Skin: no rash or nodules Objective Data Vital Signs Vital Signs: Vital Signs Temp Pulse Resp BP Pulse Ox 10/02/21 08:27 72 17 10/02/21 08:21 70 17 96 10/02/21 08:00 72 17 96 10/02/21 05:37 36.6 C 56 L 19 137/70 99 10/02/21 03:18 82 18 96 10/01/21 23:13 86 18 97 10/01/21 21:25 96 10/01/21 21:14 72 16 10/01/21 21:06 69 17 10/01/21 20:53 36.6 C 68 18 158/88 H 96 10/01/21 20:30 97 Intake/Output Intake/Output: Intake & Output 09/29/21 09/30/21 10/01/21 10/02/21 23:59 23:59 23:59 23:59 Intake Total 1180 980 730 580 Output Total 1200 950 850 Balance -20 30 -120 580 Meds/Results Medications: Active Medications Generic Name Dose Route
--- NOTE | 2021-10-02 12:32 | PM.PNNEP ---
Progress Note: A&P Assessment and Plan (1) DAWNA (acute kidney injury): Code(s): N17.9 - Acute kidney failure, unspecified Status: Acute Assessment and Plan: resolving suspect due to hemodynamic instability, hypotension, and possibly infection evaluation to date: renal ultrasound okay urinalysis bland CPK okay renal function stable at this time follow trend of repeat labs and UOP (2) Stage 3b chronic kidney disease: Code(s): N18.32 - Chronic kidney disease, stage 3b Status: Chronic Assessment and Plan: baseline creatinine runs ~ 1.0 - 1.8 this is due to his DM and HTN (3) Hypotension: Code(s): I95.9 - Hypotension, unspecified Status: Acute Assessment and Plan: resolved improvement noted s/p IVF resuscitation (4) Acute respiratory failure with hypercapnia: Code(s): J96.02 - Acute respiratory failure with hypercapnia Status: Acute Assessment and Plan: improving Pulmonary following (5) Anemia: Code(s): D64.9 - Anemia, unspecified Status: Acute Assessment and Plan: likely due in part to CKD H/H stable no need for ESAs at this time (6) Hypertension: Code(s): I10 - Essential (primary) hypertension Status: Chronic Assessment and Plan: BP was low on presentation reasonable control currently follow trend of hemodynamics (7) Type 2 diabetes mellitus with hyperglycemia: Qualifiers: 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 Subjective Date/time seen: 10/02/21 12:32 Started on diuretic therapy in an attempt to further optimize respiratory status -- reasonably diuresis noted in the last 24 hours; breathing appears to be improving each day; no apparnet distress noted; no events/issues overnight or earlier this morning. Exam Narrative: General: WD/WN male in NAD Heart: normal S1 and S2; no rub Lungs: decreased breath sounds at bases Abdomen: soft, nontender, nondistended, positive bowel sounds Extremities: no cyanosis or clubbing; no edema Skin: no rash or nodules Objective Data Vital Signs Vital Signs: Vital Signs Temp Pulse Resp BP Pulse Ox 10/02/21 08:27 72 17 10/02/21 08:21 70 17 96 10/02/21 08:00 72 17 96 10/02/21 05:37 36.6 C 56 L 19 137/70 99 10/02/21 03:18 82 18 96 10/01/21 23:13 86 18 97 10/01/21 21:25 96 10/01/21 21:14 72 16 10/01/21 21:06 69 17 10/01/21 20:53 36.6 C 68 18 158/88 H 96 10/01/21 20:30 97 Intake/Output Intake/Output: Intake & Output 09/29/21 09/30/21 10/01/21 10/02/21 23:59 23:59 23:59 23:59 Intake Total 1180 980 730 580 Output Total 1200 950 850 Balance -20 30 -120 580 Meds/Results Medications: Active Medications Generic Name Dose Route Start Last Admin Trade Name Gely PRN Reason Stop Dose Admin Albuterol 2.5 mg 10/02/21 14:39 Albuterol Sulfate Neb 2.5 Mg/0.5 Ml Inh INHALATION [id number] PRN Dyspnea Aspirin 81 mg 09/25/21 09:00 10/02/21 09:44 Aspirin 81 Mg Enteric Tablet PO 81 mg DAILY SCHUYLER Administration Atorvastatin Calcium 80 mg 09/30/21 09:00 10/02/21 09:44 Atorvastatin 40 Mg Tablet PO 80 mg DAILY SCHUYLER Administration Clopidogrel Bisulfate 75 mg 09/25/21 09:00 10/02/21 09:44 Clopidogrel Bisulfate 75 Mg Tablet PO 75 mg DAILY SCHUYLER Administration Cyanocobalamin 1,000 mcg 09/29/21 09:00 10/02/21 09:44 Cyanocobalamin 1,000 Mcg Tablet PO 1,000 mcg QAM SCHUYLER Administration Dextrose 12.5 gm 09/24/21 11:09 Dextrose 50% 25 Gm/50 Ml
--- NOTE | 2021-10-02 13:42 | PM.IMPN ---
Progress Note: A&P Assessment and Plan (1) Acute on chronic heart failure with preserved ejection fraction: Code(s): I50.33 - Acute on chronic diastolic (congestive) heart failure Status: Acute Assessment and Plan: Echo showing EF 55-60% with grade I diastolic dysfunction and mild . BNP 3000. He was tolerating intermittent doses of diuretics. CXR yesterday showing cardiomegaly, congestion, mild bilateral edema or pneumonia. Lasix IV started yesterday. Continue for today and repeat CXR in the morning. Plan to resume home lasix at discharge. (2) Acute respiratory failure with hypercapnia: Code(s): J96.02 - Acute respiratory failure with hypercapnia Status: Acute Assessment and Plan: Patient presents with weakness and found to have acute respiratory failure with hypercarbia. Most likely related to being off his noninvasive ventilation at home. With frequent adjustments of the BiPAP, pH finally improved. Lactic acid level was slightly elevated at 2.2 but normalized on repeat. COVID was negative. Chest x-ray was clear on admission but yesterday mild bilateral edema. Weaned off continuous BiPAP; we continued BiPAP with naps and at bedtime. Acidosis felt combination of resp and metabolic process. Symptoms have resolved. Pulmonary arranging for home AVAP. Needs O2 at night at 3L/min. (3) Acute hypotension: Code(s): I95.9 - Hypotension, unspecified Status: Acute Assessment and Plan: Blood pressure was 68/23 on admission. Probably accurate due to the similar findings on repeat measurements. With IV fluids, blood pressure has improved. Etiology unclear but sepsis seems less likely. He is not overly anemic to suggest acute blood loss. BCx NGTD. Procalcitonin 0.2. Consider cardiogenic but Echo showing EF 55-60% and Grade I Diastolic Dysfunction. He has acute kidney injury so would consider dehydration more likely given the marked improvement in BP with IV fluids. Antihypertensive medications were held. We continued to monitor blood pressure closely. We were able to add back his metoprolol. (4) Rhabdomyolysis: Code(s): M62.82 - Rhabdomyolysis Status: Acute Assessment and Plan: Total CK >16K but repeat the following day was 236. Suspect the original value was incorrect since subsequent values were about the same at 222, 192. Doubtful patient had rhabdomyolysis. (5) Non-ST elevation [place] (NSTEMI): Code(s): I21.4 - Non-ST elevation (NSTEMI) myocardial infarction Status: Acute Assessment and Plan: Troponin climbed to 5.9. EKG showing borderline ST-T wave changes in the high lateral leads. He appears to always have elevated Troponin. Echo showing EF 55-60% with grade I diastolic dysfunction and mild . Cardiology following and appreciate their input. Will continue ASA, Plavix, Lipitor and Lopressor. (6) Acute renal insufficiency: Code(s): N28.9 - Disorder of kidney and ureter, unspecified Status: Acute Assessment and Plan: On admission, creatinine was 2.7 which is above his baseline. Patient was HoTN on presentation and suspect he was hypotensive at home resulting in his weakness. Hypotension could be related to his medications. Hypotension also may have caused ATN resulting in the acute kidney injury. CT scan shows kidneys are normal. Renal ultrasound normal. Nephrology following and appreciate their input. Creatinine improved to 1.8. Appears to be back to baseline. Monitor closely on Lasix. Continue to monitor. (7) Urethral bleeding: Code(s): N36.8 - Other specified disorders of urethra Status: Acute Assessment and Plan: Patient developed urethral injury causing bleeding. This was complicated by being on heparin drip. Heparin was stopped. Urology was consulted and appreciate their input. Patient had Palma removed and toelrated this well. No evidence of bleeding (8) Anemia: Code(s): D64.9
--- NOTE | 2021-10-02 14:23 | PCPTNOTE ---
Patient refused treatment this session due to patient wanting to take a nap at this time.
[2021-10-02] MEDS: HEPARIN SODIUM LOCK FLUSH 500 UNITS/5 ML VIAL IV PUSH (14:40)
[2021-10-02 16:57] LABS: Glucose Point of Care 155 mg/dl (65-105)
[2021-10-02] MEDS: INSULIN ASPART (*BKC) 100 UNITS/ML 6 UNITS SUB-Q (17:21)
[2021-10-02] MEDS: PRAMIPEXOLE 1 MG TABLET PO (20:42)
[2021-10-02] MEDS: traZODone HCL 50 MG TABLET PO (20:42)
[2021-10-02] MEDS: FLUoxetine HCL 20 MG CAPSULE PO (20:42)
[2021-10-02] MEDS: QUEtiapine FUMARATE 25 MG TABLET PO (20:42)
[2021-10-02] MEDS: INSULIN GLARGINE (*BKC) 100 UNITS/ML 25 UNITS SUB-Q (20:47)
[2021-10-02 21:06] LABS: Glucose Point of Care 163 mg/dl (65-105)
[2021-10-03 01:22] VITALS: BP 161/81; PULSE 70; RESP 18; TEMP 36.6; O2SAT 96
[2021-10-03 01:35] VITALS: PULSE 54; RESP 18; O2SAT 92
[2021-10-03 04:49] VITALS: PULSE 61; RESP 19; O2SAT 92
[2021-10-03 05:17] LABS: Anion Gap 7 mmol/L (8-16); Blood Urea Nitrogen 33 mg/dL (9-20); Calcium 8.6 mg/dL (8.4-10.2); Carbon Dioxide 29 mmol/L (22-30); Chloride 100 mmol/L (98-107); Estimated CRCL calculation 41 ml/min; Estimated Glomerular Filt Rate 35; Glucose 171 mg/dL (65-110); Magnesium 1.6 mg/dL (1.6-2.3); Potassium 3.7 mmol/L (3.4-5.0); Sodium 136 mmol/L (137-145)
[2021-10-03 07:54] LABS: Glucose Point of Care 155 mg/dl (65-105)
[2021-10-03 09:14] VITALS: PULSE 70; O2SAT 96
[2021-10-03 09:26] VITALS: BP 149/72; PULSE 75; RESP 18; TEMP 36.6; O2SAT 97
[2021-10-03] MEDS: FERROUS SULFATE 324 MG TABLET PO (09:37)
[2021-10-03] MEDS: GABAPENTIN 300 MG CAPSULE 600 MG PO (09:37)
[2021-10-03] MEDS: CYANOCOBALAMIN 1,000 MCG TABLET 1000 MCG PO (09:37)
[2021-10-03] MEDS: PANTOPRAZOLE 40 MG TABLET PO (09:37)
[2021-10-03] MEDS: ATORVASTATIN 40 MG TABLET 80 MG PO (09:37)
[2021-10-03] MEDS: METOPROLOL TARTRATE 25 MG TABLET PO (09:37)
[2021-10-03] MEDS: FUROSEMIDE INJ 40 MG/4 ML VIAL IV PUSH (09:38)
[2021-10-03] MEDS: ASPIRIN 81 MG ENTERIC TABLET PO (09:38)
[2021-10-03] MEDS: CLOPIDOGREL BISULFATE 75 MG TABLET PO (09:38)
[2021-10-03] MEDS: INSULIN ASPART (*BKC) 100 UNITS/ML 6 UNITS SUB-Q ×2 (09:41→12:09)
[2021-10-03] MEDS: CENTRAL LINE FLUSH 10 ML IV PUSH ×2 (09:42→15:13)
[2021-10-03 11:44] LABS: Glucose Point of Care 203 mg/dl (65-105)
[2021-10-03] MEDS: INSULIN ASPART (*BKC) 100 UNITS/ML SUB-Q (12:08)
--- NOTE | 2021-10-03 12:23 | PM.PNPUL ---
Progress Note: A&P Assessment and Plan (1) Acute respiratory failure with hypercapnia: Code(s): J96.02 - Acute respiratory failure with hypercapnia Status: Acute Assessment and Plan: patient presented with acute on chronic hypercapnic respiratory failure related to congestive heart failure / ischemic cardiac event. Respiratory status is significantly improved. Patient placed on both noninvasive ventilatory support at night and supplemental oxygen 3 liters/minute because of significant oxyhemoglobin desaturation on last nocturnal oximetry. Underwent chest x-ray earlier today which showed significant clearing of bilateral infiltrates. Possible small pleural effusion on left. Patient can be discharged home from a respiratory standpoint. Plan is to resume his CPAP at home and have nocturnal oximetry measured at home as he may need supplemental oxygen if there is evidence of a oxyhemoglobin desaturation on home study. [employer] already notified about measuring nocturnal oximetry at home. We would like to evaluate the patient in the clinic in approximately 2-3 weeks time. (2) Congestive heart failure: Qualifiers: Heart failure type: unspecified Heart failure chronicity: unspecified Qualified Code(s): I50.9 - Heart failure, unspecified Code(s): I50.9 - Heart failure, unspecified Status: Acute (3) Lumds-it-aglvtvx kidney injury: Code(s): N17.9 - Acute kidney failure, unspecified; N18.9 - Chronic kidney disease, unspecified Status: Acute (4) Morbid obesity with body mass index (BMI) of 50.0 to 59.9 in adult: Code(s): E66.01 - Morbid (severe) obesity due to excess calories; Z68.43 - Body mass index [BMI] 50.0-59.9, adult Status: Acute Subjective Date/time seen: 10/03/21 12:23 Patient has no new respiratory symptoms. Sitting in chair without supplemental oxygen. Slept well last night on both supplemental oxygen and BiPAP support. Willing to go home. Underwent chest x-ray earlier today. Review of Systems Review of Systems: All systems reviewed & are unremarkable except as noted in HPI and below (HPI) Exam Narrative: GENERAL APPEARANCE: Well developed, well nourished, alert and cooperative, and appears to be in no acute distress While in bed and breathing room air SKIN: Inspection of the skin reveals no rashes, ulcerations or petechiae. HEENT: Sclerae anicteric and conjunctivae pink and moist. Extraocular movements were intact and pupils were equal, round. NECK: Supple. There was no thyroid enlargement, and no tenderness, or masses were felt. LUNGS: Auscultation of the lungs revealed distant breath sounds CARDIAC: There was a regular rate and rhythm without any murmurs. ABDOMEN: Soft and nontender with normal bowel sounds. There was no organomegaly. LYMPH NODES: No lymphadenopathy was appreciated in the neck, axillae or groin. EXTREMITIES: No cyanosis, clubbing or edema. NEUROLOGIC: Alert and oriented x 3. Normal affect. Objective Data Vital Signs Vital Signs: Vital Signs - 24 hr 10/02/21 16:21 10/02/21 20:42 10/02/21 20:46 Temperature 36.4 C Pulse Rate 64 64 66 Respiratory Rate 16 Blood Pressure 130/68 Pulse Oximetry 100 96 10/02/21 22:00 10/02/21 22:32 10/03/21 01:22 Temperature 36.6 C 36.6 C Pulse Rate 73 60 70 Respiratory Rate 18 20 18 Blood Pressure 161/81 H 161/81 H Pulse Oximetry 96 99 96 10/03/21 01:35 10/03/21 04:49 10/03/21 09:14 Temperature Pulse Rate 54 L 61 70 Respiratory Rate 18 19 Blood Pressure Pulse Oximetry 92 92 96 10/03/21 09:26 Temperature 36.6 C Pulse Rate 75 Respiratory Rate 18 Blood Pressure 149/72 H Pulse Oximetry 97 Intake/Output Intake/Output: Intake & Output 09/30/21 10/01/21 10/02/21 10/03/21 23:59 23:59 23:59 23:59 Intake Total 980 730 820 390 Output Total 950 850 750 200 Balance 30 -120 70 190 Meds/Results Medications: Active Medications Generic Name Dose Route
--- NOTE | 2021-10-03 14:11 | PM.DS ---
DS: Admitting Diagnosis Discharge Date 10/03/21 Admitting Diagnosis Weakness DS: Discharge Diagnosis Discharge Diagnosis (1) Acute on chronic heart failure with preserved ejection fraction: Code(s): I50.33 - Acute on chronic diastolic (congestive) heart failure Status: Acute Assessment and Plan: Echo showing EF 55-60% with grade I diastolic dysfunction and mild . BNP 3000. He was tolerating intermittent doses of diuretics. CXR today showing left basilar airspace disease felt to be resolving pulmonary edema. Pedal edema improved as well. Continue home with oral Lasix. (2) Acute respiratory failure with hypercapnia: Code(s): J96.02 - Acute respiratory failure with hypercapnia Status: Acute Assessment and Plan: Patient presents with weakness and found to have acute respiratory failure with hypercarbia. Most likely related to being off his noninvasive ventilation at home. With frequent adjustments of the BiPAP, pH finally improved. Lactic acid level was slightly elevated at 2.2 but normalized on repeat. COVID was negative. Chest x-ray was clear on admission but yesterday mild bilateral edema. Weaned off continuous BiPAP; we continued BiPAP with naps and at bedtime. Acidosis felt combination of resp and metabolic process. Symptoms have resolved. Pulmonary arranging for home AVAP. Needs O2 at night at 3L/min. (3) Acute hypotension: Code(s): I95.9 - Hypotension, unspecified Status: Acute Assessment and Plan: Blood pressure was 68/23 on admission. Probably accurate due to the similar findings on repeat measurements. With IV fluids, blood pressure has improved. Etiology unclear but sepsis seems less likely. He is not overly anemic to suggest acute blood loss. BCx NGTD. Procalcitonin 0.2. Consider cardiogenic but Echo showing EF 55-60% and Grade I Diastolic Dysfunction. He has acute kidney injury so would consider dehydration more likely given the marked improvement in BP with IV fluids. Antihypertensive medications were held. We continued to monitor blood pressure closely. We were able to add back his metoprolol which he toelrated this well. (4) Rhabdomyolysis: Code(s): M62.82 - Rhabdomyolysis Status: Acute Assessment and Plan: Total CK >16K but repeat the following day was 236. Suspect the original value was incorrect since subsequent values were about the same at 222, 192. Doubtful patient had rhabdomyolysis. (5) Non-ST elevation [place] (NSTEMI): Code(s): I21.4 - Non-ST elevation (NSTEMI) myocardial infarction Status: Acute Assessment and Plan: Troponin climbed to 5.9. EKG showing borderline ST-T wave changes in the high lateral leads. He appears to always have elevated Troponin. Echo showing EF 55-60% with grade I diastolic dysfunction and mild . Cardiology following and appreciate their input. Treated medically with ASA, Plavix, Lipitor and Lopressor. (6) Acute renal insufficiency: Code(s): N28.9 - Disorder of kidney and ureter, unspecified Status: Acute Assessment and Plan: On admission, creatinine was 2.7 which is above his baseline. Patient was HoTN on presentation and suspect he was hypotensive at home resulting in his weakness. Hypotension could be related to his medications. Hypotension also may have caused ATN resulting in the acute kidney injury. CT scan shows kidneys are normal. Renal ultrasound normal. Nephrology following and appreciate their input. Creatinine improved to 1.9 and back to baseline. (7) Urethral bleeding: Code(s): N36.8 - Other specified disorders of urethra Status: Acute Assessment and Plan: Patient developed urethral injury causing bleeding. This was complicated by being on heparin drip. Heparin was stopped. Urology was consulted and appreciate their input. Patient had Palma but now removed and tolerated this well. No evidence of re-bleeding (8)
== END 2021-10-03 16:25 | disposition home health service (06) | DRG 280 ==
LOC: ANHED 05:50 → ANHIMU 15:43 → ANH3MED 09-30 14:23 → ANHICU 10-04 09:18 → ANHIMU 10-04 09:18
PROVIDERS: Internal Medicine; Internal Medicine Cardiovascular Disease; Internal Medicine Nephrology; Internal Medicine Pulmonary Disease; Admitting Provider Internal Medicine; Emergency Provider Emergency Medicine; PCP Family Medicine; Visit Provider Internal Medicine
DX: I13.0 Hypertensive heart and chronic kidney disease with heart failure and stage 1 through stage 4 chronic kidney disease, or unspecified chronic kidney disease (principal); J96.22 Acute and chronic respiratory failure with hypercapnia; I21.4 Non-ST elevation (NSTEMI) myocardial infarction; I50.33 Acute on chronic diastolic (congestive) heart failure; Z68.43 Body mass index [BMI] 50.0-59.9, adult; E66.2 Morbid (severe) obesity with alveolar hypoventilation; N17.9 Acute kidney failure, unspecified; C85.90 Non-Hodgkin lymphoma, unspecified, unspecified site; M62.82 Rhabdomyolysis; E87.2 Acidosis; Z79.82 Long term (current) use of aspirin; I35.0 Nonrheumatic aortic (valve) stenosis; M19.90 Unspecified osteoarthritis, unspecified site; I25.10 Atherosclerotic heart disease of native coronary artery without angina pectoris; Z95.1 Presence of aortocoronary bypass graft; K21.9 Gastro-esophageal reflux disease without esophagitis; E11.22 Type 2 diabetes mellitus with diabetic chronic kidney disease; I50.9 Heart failure, unspecified; E11.42 Type 2 diabetes mellitus with diabetic polyneuropathy; G25.81 Restless legs syndrome; E11.319 Type 2 diabetes mellitus with unspecified diabetic retinopathy without macular edema; E83.42 Hypomagnesemia; I95.9 Hypotension, unspecified; N28.9 Disorder of kidney and ureter, unspecified; I27.20 Pulmonary hypertension, unspecified; Z20.822 Contact with and (suspected) exposure to COVID-19; E11.65 Type 2 diabetes mellitus with hyperglycemia; R77.8 Other specified abnormalities of plasma proteins; N18.32 Chronic kidney disease, stage 3b; D64.9 Anemia, unspecified; N36.8 Other specified disorders of urethra; Z95.3 Presence of xenogenic heart valve
CPT/HCPCS: 36415; 36600; 71045; 71046; 74176; 76775; 80048; 80053; 80076; 81001; 81003; 82375; 82550; 82570; 82607; 82728; 82746; 82805; 82948; 83036; 83050; 83540; 83550; 83605; 83690; 83735; 83880; 84100; 84145; 84156; 84300; 84443; 84484; 85025; 85027; 85055; 85610; 85730; 86140; 87040; 87086; 87804; 93005; 94002; 94003; 94640; 94762; 96365; 96375; 97110; 97112; 97161; 97165; 97530; 97535; 99285; A9270; C8929; C9113; C9803; J0692; J1642; J1644; J1650; J1815; J1940; J2405; J3370; J3420; J3475; J7030; J7040; Q9957; U0003; U0005

== ENCOUNTER 2021-10-11 13:27 | Outpatient (NON) | payer MEDICARE, MEDICAID, SELFPAY ==
[2021-10-11 13:53] LABS: Anion Gap 5 mmol/L (8-16); Blood Urea Nitrogen 33 mg/dL (9-20); Calcium 8.2 mg/dL (8.4-10.2); Carbon Dioxide 29 mmol/L (22-30); Chloride 103 mmol/L (98-107); Estimated Glomerular Filt Rate 37; Glucose 259 mg/dL (65-110); Potassium 4.6 mmol/L (3.4-5.0); Sodium 137 mmol/L (137-145)
== END 2021-10-11 13:28 | disposition home or self-care (01) ==
PROVIDERS: PCP Family Medicine; Visit Provider Internal Medicine
DX: N18.32 Chronic kidney disease, stage 3b (principal)
CPT/HCPCS: 80048

== ENCOUNTER 2021-10-22 08:54 | Outpatient (CLI) | payer MEDICARE, MEDICAID, SELFPAY ==
--- NOTE | ~2021-10-22 | XR_ITS ---
XR chest 2V 10/22/2021 09:20 Indication: Cough. Recent pneumonia. Procedure: 2 view chest Comparison: 10/03/2021 Findings: There is left basilar atelectasis. No focal pneumonia, edema, pleural effusion or pneumotho rax. Portacatheter tip in the condyle aspect of the SVC. No acute osseous abnormality. There is a aor tic valve replacement. Impression: 1: Subsegmental left basilar atelectasis. Reviewed, dictated and finalized at location B. Impression: 1: Subsegmental left basilar atelectasis.
== END 2021-10-22 08:55 | disposition home or self-care (01) ==
LOC: ANHIMG 08:56
PROVIDERS: PCP Family Medicine; Visit Provider Nurse Practitioner Adult Health
DX: R05.9 Cough, unspecified (principal); J98.11 Atelectasis
CPT/HCPCS: 71046

== ENCOUNTER 2021-10-29 08:16 | Outpatient (CLI) | payer MEDICARE, MEDICAID, SELFPAY ==
--- NOTE | 2021-10-31 17:34 | WPDSLEEPSTUD ---
Sleep Study Date of Study: 10/29/21 Ordering Provider: Сергей Worthington MD Interpreting Physician: Margo Barajas MD Sleep Study Type: Split Polysomnogram Height: 1.73 m Weight: 175.087 kg Body Mass Index: 58.6 Neck Circumference (inches): 23 [place]: 12 Reason for Sleep Study Hypersomnolence, JOE on home CPAP 10 cm and O2 3 l/min; chronic hypercapnic hypoxemic respiratory failure, Sleep History Pascual Kowalski is a 71 year old man with chronic hypercapnic respiratory failure, morbid obesity, obesity hypoventilation, and obstructive sleep apnea on CPAP 10 cm and 3 L/min O2 with sleep. He was hospitalized in September 2021 with acute on chronic hypercapnic respiratory failure due to not using his home CPAP or due to the nationwide recall of certain CPAP machines. He was treated with a noninvasive ventilatory support and diuretics. Following clinical improvement, he was discharged home with the recommendation to resume CPAP use. The patient stated that since he left the hospital he has been using CPAP every night. His respiratory breathing has significantly improved since he left the hospital. He has congestive heart failure, diabetes mellitus, hypertension, history of TAVR for aortic valve stenosis. Patient had sleep study several years ago done at another facility. Over the last couple of years he has gained more than 40 lb. He uses a wheelchair to get around. He has knee osteoarthritis related to his morbid obesity. He has loud snoring and waking during the night. He rarely wakes from sleep feeling short of breath. He trejo not wake at night with heartburn, belching and coughing. He frequently snores, occasionally snores loudly enough that others complain. he frequently has trouble sleeping with a cold. He occasionally wakes up gasping for breath at night. He occasionally has breathing problems at night observed by others. He rarely sweats excessively at night. He rarely notices his heart pounding or beating irregularly at night. He rarely falls asleep during the day, rarely falls asleep involuntarily, never falls asleep while driving. He does not have loss of muscle tone with strong emotion. He does not have daytime difficulties due to excessive sleepiness. He does not feel paralyzed on waking or falling asleep. Rarely has vivid dreamlike scenes upon awakening or falling asleep. He rarely feels afraid to go to sleep. He occasionally has nightmares. He rarely remembers his dreams he does not have racing thoughts. He does not have sadness, depression or anxiety. He occasionally has muscular tension. He rarely notices parts of his body jerking. He occasionally kicks at night. He occasionally has crawling and aching feelings in his legs and occasionally has leg pain at night. He does not have morning jaw pain. Does not grind his teeth during sleep. He occasionally is bothered by pain during the day. He frequently is awakened by pain at night. Rarely wakes up feeling stiff in the morning and rarely wakes up with sore achy muscles. He does not wake up with pain in the neck and spine. Normal bedtime 9:00 p.m., falling asleep within 15 minutes, waking 2-3 times to use the bathroom or sometimes work a word search puzzle. he wakes at 7 in the morning. He estimates getting between 8 and 10 hours of sleep at night. On weekends, he goes to bed later, midnight however still wakes at 7 in the morning. He takes naps in the afternoon or evening. A short nap may be refreshing. Most of the time he is drowsy in the morning for 3 hours or longer. He feels better in the morning compared other times a day. Habits: Never smoked tobacco. Caffeine 3 bottles of diet soda per day. No alcohol or recreational drugs. [facility] Past Medical History Medical History Acute respiratory failure Hospitalization June 06 through July 20, 2019 intubated 07/07/2019 through 07/14/2019 due to sepsi
[2021-10-31 21:32] VITALS: BMI 58.6
== END 2021-10-30 06:57 | disposition home or self-care (01) ==
LOC: ANHCSM 08:18
PROVIDERS: PCP Family Medicine; Visit Provider Internal Medicine Pulmonary Disease
DX: G47.33 Obstructive sleep apnea (adult) (pediatric) (principal)
CPT/HCPCS: 95811

== ENCOUNTER 2021-11-06 07:54 | Outpatient (CLI) | payer MEDICARE, MEDICAID, SELFPAY ==
--- NOTE | 2021-11-12 18:26 | WPDSLEEPSTUD ---
Sleep Study Date of Study: 11/06/21 Ordering Provider: Сергей Worthington MD Interpreting Physician: Kelin Johnson DO Sleep Study Type: BiPAP Titration Height: 1.75 m Weight: 172.365 kg Body Mass Index: 56.1 Neck Circumference (inches): 21 [place]: 16 Reason for Sleep Study The patient had a Split Night Study on 10/29/2021 with an AHI of 106.6 on the diagnostic portion of the study. The patient was started on CPAP 5 cm H2O and titrated to BPAP 18/14 cm H2O. Sleep History Pascual Kowalski is a 71 year old man with chronic hypercapnic respiratory failure, morbid obesity, obesity hypoventilation, and obstructive sleep apnea on CPAP 10 cm and 3 L/min O2 with sleep. He was hospitalized in September 2021 with acute on chronic hypercapnic respiratory failure due to not using his home CPAP or due to the nationwide recall of certain CPAP machines. He was treated with a noninvasive ventilatory support and diuretics. Following clinical improvement, he was discharged home with the recommendation to resume CPAP use. The patient stated that since he left the hospital he has been using CPAP every night. His respiratory breathing has significantly improved since he left the hospital. He has congestive heart failure, diabetes mellitus, hypertension, history of TAVR for aortic valve stenosis. Patient had sleep study several years ago done at another facility. Over the last couple of years he has gained more than 40 lb. He uses a wheelchair to get around. He has knee osteoarthritis related to his morbid obesity. He has loud snoring and waking during the night. He rarely wakes from sleep feeling short of breath. He trejo not wake at night with heartburn, belching and coughing. He frequently snores, occasionally snores loudly enough that others complain. he frequently has trouble sleeping with a cold. He occasionally wakes up gasping for breath at night. He occasionally has breathing problems at night observed by others. He rarely sweats excessively at night. He rarely notices his heart pounding or beating irregularly at night. He rarely falls asleep during the day, rarely falls asleep involuntarily, never falls asleep while driving. He does not have loss of muscle tone with strong emotion. He does not have daytime difficulties due to excessive sleepiness. He does not feel paralyzed on waking or falling asleep. Rarely has vivid dreamlike scenes upon awakening or falling asleep. He rarely feels afraid to go to sleep. He occasionally has nightmares. He rarely remembers his dreams he does not have racing thoughts. He does not have sadness, depression or anxiety. He occasionally has muscular tension. He rarely notices parts of his body jerking. He occasionally kicks at night. He occasionally has crawling and aching feelings in his legs and occasionally has leg pain at night. He does not have morning jaw pain. Does not grind his teeth during sleep. He occasionally is bothered by pain during the day. He frequently is awakened by pain at night. Rarely wakes up feeling stiff in the morning and rarely wakes up with sore achy muscles. He does not wake up with pain in the neck and spine. Normal bedtime 9:00 p.m., falling asleep within 15 minutes, waking 2-3 times to use the bathroom or sometimes work a word search puzzle. he wakes at 7 in the morning. He estimates getting between 8 and 10 hours of sleep at night. On weekends, he goes to bed later, midnight however still wakes at 7 in the morning. He takes naps in the afternoon or evening. A short nap may be refreshing. Most of the time he is drowsy in the morning for 3 hours or longer. He feels better in the morning compared other times a day. Habits: Never smoked tobacco. Caffeine 3 bottles of diet soda per day. No alcohol or recreational drugs. [facility] Past Medical History Medical History Acute respiratory failure Hospitalization June 06
[2021-11-12 18:30] VITALS: BMI 56.1
== END 2021-11-07 07:00 | disposition home or self-care (01) ==
LOC: ANHCSM 07:55
PROVIDERS: PCP Family Medicine; Visit Provider Internal Medicine Pulmonary Disease
DX: G47.33 Obstructive sleep apnea (adult) (pediatric) (principal)
CPT/HCPCS: 95811

== ENCOUNTER 2023-03-05 08:03 | Outpatient (CLI) | payer MEDICARE, MEDICAID, SELFPAY ==
[2023-03-05 13:05] LABS: Basophils Absolute Auto 0.1 K/mm3 (0.0-0.1); Basophils Percent Auto 0.6 % (0.2-1.2); Eosinophils Absolute Auto 0.3 K/mm3 (0-0.3); Eosinophils Percent Auto 3.3 % (0-4.4); Hemoglobin 11.5 g/dL (14.0-18.0); Immature Granulocyte Absolute 0.07 K/mm3 (0.00-0.031); Immature Granulocyte Percent A 0.9 % (0-0.5); Lymphocytes Absolute Auto 1.55 K/mm3 (0.9-3.2); Mean Corpuscular HGB Conc 29.5 g/dl (32-36); Mean Corpuscular Hemoglobin 27.2 pg (26-34); Mean Corpuscular Volume 92.2 fl (80-100); Mean Platelet Volume 11.4 fl (7.4-10.4); Monocytes Absolute Auto 0.6 K/mm3 (0.1-0.6); Monocytes Percent Auto 6.7 % (2.6-8.5); Neutrophils Absolute Auto 5.7 K/mm3 (1.3-6.7); Neutrophils Percent Auto 69.5 % (45.5-73.1); Platelet Count Result 191 k/mm3 (150-375); Red Blood Count 4.23 M/mm3 (4.6-6.20); Red Cell Distribution Width 16.7 % (11.5-14.5); White Blood Count 8.2 K/mm3 (4.5-10.0)
[2023-03-05 13:11] LABS: Alanine Aminotransferase 27 U/L (6-50); Albumin Level 3.7 g/dL (3.5-5.1); Alkaline Phosphatase 87 U/L (38-126); Anion Gap 8 mmol/L (8-16); Aspartate Amino Transferase 35 U/L (17-59); Bilirubin,Total 0.5 mg/dL (0.2-1.3); Blood Urea Nitrogen 37 mg/dL (9-20); Calcium 8.9 mg/dL (8.4-10.2); Carbon Dioxide 32 mmol/L (22-30); Chloride 99 mmol/L (98-107); Cholesterol 143 mg/dL (0-200); Estimated Glomerular Filt Rate 30; Glucose 161 mg/dL (65-110); HDL Direct 35 mg/dL; Potassium 4.5 mmol/L (3.4-5.0); Sodium 139 mmol/L (137-145); Triglycerides 203 mg/dL (<150)
[2023-03-05 13:22] LABS: LDL Cholesterol Direct 64 mg/dL
[2023-03-05 13:50] LABS: Vitamin D 25 Hydroxy 24.6 ng/mL
[2023-03-05 14:16] LABS: Folic Acid 9.6 ng/mL (2.76->20)
[2023-03-05 15:01] LABS: Hemoglobin A1C 9.6 % (<5.7)
== END 2023-03-05 08:04 | disposition home or self-care (01) ==
LOC: ANHGOSHLAB 08:05
PROVIDERS: PCP Family Medicine; Visit Provider Physician Assistant
DX: C85.90 Non-Hodgkin lymphoma, unspecified, unspecified site (principal); D64.9 Anemia, unspecified; E11.22 Type 2 diabetes mellitus with diabetic chronic kidney disease; N18.32 Chronic kidney disease, stage 3b; E11.65 Type 2 diabetes mellitus with hyperglycemia; E66.01 Morbid (severe) obesity due to excess calories; I50.9 Heart failure, unspecified; E78.2 Mixed hyperlipidemia; G47.30 Sleep apnea, unspecified; G47.33 Obstructive sleep apnea (adult) (pediatric); I35.0 Nonrheumatic aortic (valve) stenosis; J96.10 Chronic respiratory failure, unspecified whether with hypoxia or hypercapnia; Z68.44 Body mass index [BMI] 60.0-69.9, adult
CPT/HCPCS: 36415; 80053; 80061; 82306; 82607; 82746; 83036; 84443; 85025

== ENCOUNTER 2023-04-16 08:05 | Outpatient (CLI) | payer MEDICARE, MEDICAID, SELFPAY ==
[2023-04-16 19:12] LABS: Albumin Level 3.6 g/dL (3.5-5.1); Anion Gap 6 mmol/L (8-16); Blood Urea Nitrogen 31 mg/dL (9-20); Calcium 8.2 mg/dL (8.4-10.2); Carbon Dioxide 30 mmol/L (22-30); Chloride 101 mmol/L (98-107); Estimated Glomerular Filt Rate 33; Glucose 175 mg/dL (65-110); Potassium 4.2 mmol/L (3.4-5.0); Sodium 137 mmol/L (137-145)
[2023-04-16 19:16] LABS: Parathyroid Intact 98.6 pg/mL (7.5-53.5)
[2023-04-16 19:41] LABS: Creatinine Urine 164.7 mg/dL; Total Protein Urine Random 28 mg/dL; Ur Ttl Prot Creatinine Ratio 0.17 mg/mg (0-0.20)
[2023-04-16 19:54] LABS: Vitamin D 25 Hydroxy 34.1 ng/mL
[2023-04-16 20:25] LABS: Hepatitis C Virus Antibody Negative (Negative)
== END 2023-04-16 08:06 | disposition home or self-care (01) ==
PROVIDERS: Nurse Practitioner Family; PCP Family Medicine; Visit Provider Internal Medicine Nephrology
DX: Z11.59 Encounter for screening for other viral diseases (principal); E55.9 Vitamin D deficiency, unspecified; N25.81 Secondary hyperparathyroidism of renal origin; N18.32 Chronic kidney disease, stage 3b
CPT/HCPCS: 36415; 80069; 82306; 82570; 83970; 84156; 86803

== ENCOUNTER 2023-05-18 08:15 | Outpatient (CLI) | payer MEDICARE, MEDICAID, SELFPAY ==
[2023-05-18 19:53] LABS: Albumin Level 3.7 g/dL (3.5-5.1); Anion Gap 10 mmol/L (8-16); Blood Urea Nitrogen 49 mg/dL (9-20); Calcium 8.9 mg/dL (8.4-10.2); Carbon Dioxide 27 mmol/L (22-30); Chloride 100 mmol/L (98-107); Estimated Glomerular Filt Rate 24; Glucose 285 mg/dL (65-110); Phosphorus 4.2 mg/dL (2.5-4.5); Potassium 3.9 mmol/L (3.4-5.0); Sodium 137 mmol/L (137-145)
== END 2023-05-18 08:16 | disposition home or self-care (01) ==
PROVIDERS: PCP Family Medicine; Visit Provider Internal Medicine Nephrology
DX: N18.32 Chronic kidney disease, stage 3b (principal)
CPT/HCPCS: 36415; 80069

== ENCOUNTER 2023-05-29 08:19 | Outpatient (CLI) | payer MEDICARE, MEDICAID, SELFPAY ==
[2023-05-29 15:22] LABS: Albumin Level 3.8 g/dL (3.5-5.1); Anion Gap 9 mmol/L (8-16); Blood Urea Nitrogen 39 mg/dL (9-20); Calcium 8.9 mg/dL (8.4-10.2); Carbon Dioxide 27 mmol/L (22-30); Chloride 97 mmol/L (98-107); Estimated Glomerular Filt Rate 30; Glucose 391 mg/dL (65-110); Phosphorus 3.3 mg/dL (2.5-4.5); Potassium 4.3 mmol/L (3.4-5.0); Sodium 133 mmol/L (137-145)
== END 2023-05-29 08:20 | disposition home or self-care (01) ==
LOC: ANHGOSHLAB 08:21
PROVIDERS: PCP Family Medicine; Visit Provider Internal Medicine Nephrology
DX: N18.32 Chronic kidney disease, stage 3b (principal)
CPT/HCPCS: 36415; 80069

== ENCOUNTER 2023-10-02 08:47 | Outpatient (CLI) | payer MEDICARE, MEDICAID, SELFPAY ==
[2023-10-02 19:45] LABS: Hematocrit 41.5 % (42.0-52.0); Mean Corpuscular HGB Conc 28.9 g/dl (32-36); Mean Corpuscular Hemoglobin 25.9 pg (26-34); Mean Corpuscular Volume 89.4 fl (80-100); Mean Platelet Volume 10.6 fl (7.4-10.4); Platelet Count Result 191 k/mm3 (150-375); Red Blood Count 4.64 M/mm3 (4.6-6.20); Red Cell Distribution Width 17.2 % (11.5-14.5); White Blood Count 9.3 K/mm3 (4.5-10.0)
[2023-10-02 19:55] LABS: Creatinine Urine 181.5 mg/dL; Total Protein Urine Random 8 mg/dL; Ur Ttl Prot Creatinine Ratio 0.04 mg/mg (0-0.20)
[2023-10-02 20:09] LABS: Albumin Level 3.5 g/dL (3.5-5.1); Anion Gap 9 mmol/L (8-16); Blood Urea Nitrogen 44 mg/dL (9-20); Carbon Dioxide 27 mmol/L (22-30); Chloride 102 mmol/L (98-107); Estimated Glomerular Filt Rate 31; Glucose 211 mg/dL (65-110); Phosphorus 3.6 mg/dL (2.5-4.5); Potassium 4.9 mmol/L (3.4-5.0); Sodium 138 mmol/L (137-145)
[2023-10-02 20:54] LABS: Parathyroid Intact 126.3 pg/mL (7.5-53.5)
== END 2023-10-02 08:48 | disposition home or self-care (01) ==
PROVIDERS: PCP Family Medicine; Visit Provider Internal Medicine Nephrology
DX: N18.32 Chronic kidney disease, stage 3b (principal)
CPT/HCPCS: 36415; 80069; 82570; 83970; 84156; 85027

== ENCOUNTER 2024-02-01 08:10 | Outpatient (CLI) | payer MEDICARE, MEDICAID, SELFPAY ==
[2024-02-01 12:41] LABS: Alanine Aminotransferase 27 U/L (6-50); Albumin Level 3.9 g/dL (3.5-5.1); Alkaline Phosphatase 90 U/L (38-126); Anion Gap 12 mmol/L (4-12); Aspartate Amino Transferase 87 U/L (17-59); Bilirubin,Total 0.6 mg/dL (0.2-1.3); Blood Urea Nitrogen 45 mg/dL (9-20); Carbon Dioxide 23 mmol/L (22-30); Chloride 104 mmol/L (98-107); Cholesterol 132 mg/dL (0-200); Estimated Glomerular Filt Rate 30; Glucose 147 mg/dL (65-110); HDL Direct 43 mg/dL; Potassium 4.3 mmol/L (3.4-5.0); Sodium 139 mmol/L (137-145); Triglycerides 98 mg/dL (<150)
[2024-02-01 12:52] LABS: LDL Cholesterol Direct 64 mg/dL
[2024-02-01 19:25] LABS: Hemoglobin A1C 8.5 % (<5.7)
== END 2024-02-01 08:11 | disposition home or self-care (01) ==
PROVIDERS: PCP Family Medicine; Visit Provider Family Medicine
DX: E11.9 Type 2 diabetes mellitus without complications (principal); I42.9 Cardiomyopathy, unspecified
CPT/HCPCS: 36415; 80053; 80061; 83036; 84443

== ENCOUNTER 2024-04-14 08:29 | Outpatient (CLI) | payer MEDICARE, MEDICAID, SELFPAY ==
[2024-04-14 13:55] LABS: Hematocrit 42.3 % (42.0-52.0); Hemoglobin 12.8 g/dL (14.0-18.0); Mean Corpuscular HGB Conc 30.3 g/dl (32-36); Mean Corpuscular Hemoglobin 27.8 pg (26-34); Mean Platelet Volume 11.4 fl (7.4-10.4); Platelet Count Result 207 k/mm3 (150-375); Red Cell Distribution Width 17.7 % (11.5-14.5); White Blood Count 12.3 K/mm3 (4.5-10.0)
[2024-04-14 14:31] LABS: Albumin Level 3.6 g/dL (3.5-5.1); Anion Gap 7 mmol/L (4-12); Blood Urea Nitrogen 42 mg/dL (9-20); Calcium 8.8 mg/dL (8.4-10.2); Carbon Dioxide 33 mmol/L (22-30); Chloride 98 mmol/L (98-107); Estimated Glomerular Filt Rate 28; Glucose 162 mg/dL (65-110); Phosphorus 3.1 mg/dL (2.5-4.5); Potassium 4.1 mmol/L (3.4-5.0); Sodium 138 mmol/L (137-145)
[2024-04-14 14:34] LABS: Alanine Aminotransferase 28 U/L (6-50); Albumin Level 3.7 g/dL (3.5-5.1); Alkaline Phosphatase 83 U/L (38-126); Anion Gap 8 mmol/L (4-12); Aspartate Amino Transferase 56 U/L (17-59); Bilirubin,Total 0.4 mg/dL (0.2-1.3); Blood Urea Nitrogen 41 mg/dL (9-20); Calcium 8.8 mg/dL (8.4-10.2); Carbon Dioxide 33 mmol/L (22-30); Chloride 98 mmol/L (98-107); Estimated Glomerular Filt Rate 28; Glucose 164 mg/dL (65-110); Potassium 3.8 mmol/L (3.4-5.0); Sodium 139 mmol/L (137-145)
[2024-04-14 14:44] LABS: Parathyroid Intact 56.9 pg/mL (14.5-75.2)
[2024-04-14 15:30] LABS: Total Protein Urine Random < 5 mg/dL; Ur Ttl Prot Creatinine Ratio < 0.03 mg/mg (0-0.20)
[2024-04-14 17:10] LABS: Hemoglobin A1C 8.1 % (<5.7)
[2024-04-14 18:35] LABS: Vitamin D 25 Hydroxy 22.3 ng/mL
== END 2024-04-14 08:30 | disposition home or self-care (01) ==
PROVIDERS: PCP Family Medicine; Visit Provider Internal Medicine Nephrology
DX: E11.65 Type 2 diabetes mellitus with hyperglycemia (principal); N18.32 Chronic kidney disease, stage 3b; I25.810 Atherosclerosis of coronary artery bypass graft(s) without angina pectoris; K21.9 Gastro-esophageal reflux disease without esophagitis; E21.1 Secondary hyperparathyroidism, not elsewhere classified; I50.9 Heart failure, unspecified
CPT/HCPCS: 36415; 80053; 80069; 82306; 82570; 83036; 83970; 84156; 85027

== ENCOUNTER 2024-10-14 08:39 | Outpatient (CLI) | payer MEDICARE, SELFPAY ==
--- OUTSIDE RECORDS SUMMARY | 2024-10-14 08:54 | XMS_ITS | Encounter Summary ---
Author Organization [facility] Healthcare Address [address] [place] [address] Care Team Providers Care Groover And Turner Name Role Phone Leo Doss MD Unavailable [phone] Leo Doss MD Primary Care Provider [phone] Sravan Higgins MD Unavailable [phone] Morgan Ballard MD Unavailable Encounter Details Date Type Department Care Team (Latest Contact Info) Description 04/09/2020 Documentation Cardiology Memo Glass RN Social History Tobacco Use Types Packs/Day Years Used Date Smoking Tobacco: Never Smokeless Tobacco: Never Alcohol Use Standard Drinks/Week Comments No 0 (1 standard drink = 0.6 oz pur e alcohol) Sex and Gender Information Value Date Recorded Sex Assigned at Not on file Legal Sex Male 5:59 PM 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 Gender Identity Not on file Sexual Orientation Not on file documented as of this encounter Plan of Treatment Not on file documented as of this encounter Visit Diagnoses Not on filedocumented in this encounter Additional Health Concerns Infection Onset Date Last Indicated Resolved Time MRSA Comment:Tracheal aspirate 04/07/20,nare 04/07/20 04/07/2020 04/07/2020 03/27/2021 5:00 AM CDT 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
--- OUTSIDE RECORDS SUMMARY | 2024-10-14 08:54 | XMS_ITS | Encounter Summary ---
Author Organization [facility] Address [address] [facility] [place] [address] Care Team Providers Care Office Machine Mechanic Name Role Phone Unavailable Primary Care Provider Unavailabl e Encounter Details Date Type Department Care Team (Late st Contact Info) Description 02/05/2018 Lab Requisition [facility] Care Pathology Lab [address] [place] [address] Neal Flores MD [address] [address] Soft tissue disorder Social History Tobacco Use Types Packs/Day Years Used Date Smoking Tobacco: Never Assessed Sex and Gender Information Value Date Recorded Sex Assigned at Not on file Gender Identity Not on file Sexual Orientation Not on file documented as of this encounter Plan of Treatment Not on file documented as of this encounter Procedures Procedure Name Priority Date/Time Associated Diagnosis Comments FLOW CYTOMETRY TISSUE PANEL Routine 02/05/2018 10:04 AM CDT Soft tissue disorder documented in this encounter Results * FLOW CYTOMETRY TISSUE PANEL (02/05/2018 10:04 AM CDT) Case Report Flow Cytometry Case: [id number] Authorizing Provider: Neal Flores MD Collected: 02/05/2018 10:04 AM Pathologist: Keerthi Alston MD Received: 02/05/2018 01:44 PM Specimen: Soft Tissue Mass, RIGHT INGUINAL MASS 8 4:58 PM CDT [facility] Final Diagnosis Inguinal soft tissue mass, Right , Flow cytometric immunophenotypic analysis: - 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 - See interpretation. 8 4:58 PM CDT [facility] Flow Cytometry Interpretation The right inguinal mass specimen has a viability of 78%. Most of the cells are within the lymphocyte gate (88%). Within this region, there is a monotypic B-cell population identified expressing CD19, CD20, CD45, and surface kappa light chains. This population lacks significant co-expression of CD5, CD10, CD23, and CD34. By CD19, this population accounts for 41.4% of all flow events analyzed. There is no immunophenotypically aberrant T-cell population noted (CD4:CD8 ratio = 2.4:1). A cytospin prepared from the flow cytometry specimen is reviewed for production quality analyst purposes. Overall, the right inguinal mass specimen shows evidence of involvement by a CD5-negative, [id number] mature B-cell lymphoma. Correlation with clinical findings and the concurrent tissue biopsy ([facility]; [id number]) is required for further classification. KR/BOAT HOIST OPERATOR/vp customer service 8 4:58 PM [facility] Flow Cytometry Results Differential Result Comment Flow Cell Count /uL 8100 Total Viability % 78.0 Lymphocytes % 88 Dim CD45 Region % 1 Monocytes % 4 Granulocytes % 0 8 4:58 PM [facility] Reason for test Soft tissue disorder 729.90 8 4:58 PM [facility] Client Specimen ID # [id number] 8 4:58 PM [facility] Number of markers 16 were performed. A Flow CD3 A Flow CD10 A Flow CD20 A Flow CD23 A Flow CD2 A Flow CD4 A Flow CD1a A Flow CD5 A Flow CD19 A Flow CD34 A Flow CD45 A Flow CD7 A Flow CD8 A Flow CD30 A [place]+CD19+ A Lambda+CD19+ 8 4:58 PM [facility] Disclaimer Test performed at [facility], [address] [place] [address], [address]. *The established laboratory minimum viability is 70%. Values below the minimum may result in the failure to find an abnormal population of cells. This test was developed and its performance characteristics determined by the Flow Cytometry Laboratory. It has not been cleared by the [place] Food and Drug Administration (FDA). The FDA has determined that such clearance or approval is not necessary. This test is used for clinical purposes. It should not be regarded as investigational or for research. This laboratory is regulated under the Clinical Laboratory Improvement Amendments of 1998 (CLIA) as a qualified to perform high complexity clinical testing. 8 4:58 PM CDT [facility] Embedded Images 8 4:58 PM CDT [facility] Pathology/Cytolo gy SOFT TISSUE MASS / Unknown 02/05/2018 10:04 AM CDT 02/05/2018 1:44 PM CDT Neal Flores MD LAB - PATHOLOGY/CYTO LOGY ORDERABLES Performing Organization Address City/State/[facility] Co de Phone Number [facility] [address] [phone] documented in this encounter Visit Diagnoses Diagnosis Soft tissue disorder Disorders of soft tissue, unspecified documented in this encounter
--- OUTSIDE RECORDS SUMMARY | 2024-10-14 08:54 | XMS_ITS | Clinical Summary ---
Author Organization [facility] Address [address] [place] [address] Care Team Providers Care Automotive Parts Clerk Name Role Phone Leo Doss MD Primary Care Provider [phone] Allergies No known active allergies Medications aspirin (ECOTRIN EC) 81 mg Tablet, Delayed Release (E.C.) Take 81 mg by mouth daily. Active metoprolol succinate (TOPROL XL) 50 mg Extended Release 24 hour tablet Take 50 mg by mouth 2 times daily. Active FLUoxetine (PROzac) 20 mg tablet Take 20 mg by mouth daily. Active ibuprofen (MOTRIN) 800 mg tablet Take 800 mg by mouth 4 times daily. Active cholecalciferol 50,000 unit Capsule Take 100,000 Units by mouth every 7 days. Active gabapentin (NEURONTIN) 600 mg tabletIndicatio ns:pt taking 2 in morning and 2 at night Take 1,200 mg by mouth daily . Active pramipexole (MIRAPEX) 1 mg Tablet Take 1 mg by mouth daily at bedtime. Active insulin glargine (LANTUS) 100 unit/mL injection Inject 50 Units by subcutaneous injection daily after supper. Active HYDROcodone-josse taminophen (NORCO) 5-325 mg tablet Take 1 Tablet by mouth every 4 hours as needed for Pain, Moderate. Active nitroglycerin (NITROSTAT) 0.4 mg Tablet, Sublingual Place 0.4 mg under tongue every 5 minutes as needed for Chest Pain. Active isosorbide mononitrate (IMDUR) 30 mg Extended Release 24 hour tablet 11 9 Active TRINI PEN NEEDLE 32 gauge x Needle USE TID AND PRN UTD 0 Active ergocalciferol (VITAMIN D2) 50,000 unit capsule TK 2 CS PO WEEKLY 0 Active acetaminophen (TYLENOL) 325 mg tablet Take 650 mg by mouth. Active ferrous sulfate 325 mg (65 mg iron) tablet Take by mouth. Ac tive atorvastatin (LIPITOR) 80 mg tablet Take 80 mg by mouth daily. 1 Active bumetanide (BUMEX) 2 mg tablet Take 2 mg by mouth daily. Active clopidogreL (PLAVIX) 75 mg Tablet Take 75 mg by mouth daily. Active semaglutide (Ozempic) 1 mg/dose (2 mg/1.5 mL) Pen Injector Inject by subcutaneous injection every 7 days. 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 Encounters Date Type Department Care Team Description 09/28/2024 External Device Data ST[facility] ABSTRACTION Provider, Abstract 09/06/2024 External Device Data [facility] ABSTRACTION Provider, Abstract from Last 3 Months Family History Medical History Relation Name Comments Diabetes Brother 1 Heart Disease Brother 1 Healthy Brother 2 Diabetes Father Heart Disease Father Breast Cancer Mother Other Sister 1 Heart Disease Sister 2 No Known Problems Sister 3 No Known Problems Sister 4 Other Sister 5 Other Sister 6 Relation Name Status Comments Brother 1 Alive Brother 2 Alive Father Mother Alive Sister 1 Sister 2 Alive Sister 3 Alive Sister 4 Alive Sister 5 Alive Sister 6 Social History Tobacco Use Types Packs/Day Years Used Date Smoking Tobacco: Never Tobacco Cessation:Counseling Given: Not Answered Alcohol Use Standard Drinks/Week Comments Yes 0 (1 standard drink = 0.6 oz pur e alcohol) rarely Sex and Gender Information Value Date Recorded Sex Assigned at Not on file Legal Sex Male 3:20 PM CDT Gender Identity Not on file Sexual Orientation Not on file Last Filed Vital Signs Vital Sign Reading Time Taken Comments Blood Pressure 133/75 03/11/2024 10:37 AM CDT Pulse 76 03/11/2024 10:37 AM CDT Temperature 36.8 C (98.2 F) 03/11/2024 10:37 AM CDT Respiratory Rate 18 03/11/2024 10:37 AM CDT Oxygen Saturation 91% 03/11/2024 10:37 AM CDT Inhaled Oxygen Concentration - - Weight 181.4 kg (400 lb) 03/11/2024 10:37 AM CDT Height 174 cm (5' 8.5 ) 02/07/2022 8:55 AM CDT Body Mass Index 59.94 02/07/2022 8:55 AM CDT Plan of Treatment Upcoming Encounters Date Type Department Care Team (Late st Contact Info) Description 11/09/2024 11:00 AM CDT Office Visit [facility] Oncology and Hematology - [place] [address] [facility] [address] [place] [address] Monty Oliveira MD [address] [employer] [address] [place] [address] Health Maintenance Due Date Last Done Comments DIABETES ANNUAL FOOT EXAM 1969 DIABETES ANNUAL RETINAL EXAM 1969 DIABETES MICROALBUMIN ANNUAL SCREEN 1969 LDL CHOLESTEROL ANNUAL 1969 DTAP/TDAP/TD VACCINES (1 - Tdap) 1970 ZOSTER VACCINE (1 of 2) 1970 COLORECTAL SCREENING 1996 Colorectal Cancer Screening 1996 FIT-DNA Q 3 years 1996 FIT/FOBT Q 1 year 1996 Flex Sig/CT Colonography Q 5 years 1996 RSV VACCINE (60+ or ) (1 - Risk 60-74 years 1-dose series) 2011 PNEUMOCOCCAL VACCINE 50+ YEA RS (2 of 2 - PCV) 04/10/2018 04/10/2017 DIABETES HBA1C Q 6 MONTHS 10/05/2020 04/04/2020, 05/2020 INFLUENZA VACCINE (#1) 2024 , 06/01/2019, 04/28/2018, Additional history exists Procedures Procedure Name Priority Date/Time Associated Diagnosis Comments HEMOGLOBIN A1C Routine 09/19/2019 from Last 3 Months or Most Recently Relevant to Health Maintenance Results * HEMOGLOBIN A1C (09/19/2019) Blood us Abstract Provider CHEMISTRY ORDERABLES Edited Re sult - Final NON [facility] from Last 3 Months or Most Recently Relevant to Health Maintenance Insurance [facility] [id number] [place] [id number] [place] Care Teams Automotive Parts Clerk Relationship Specialty Start Date End Date Leo Doss MD PCP - General Family Practice 03/04/18
--- OUTSIDE RECORDS SUMMARY | 2024-10-14 08:54 | XMS_ITS | Clinical Summary ---
Author Organization [facility] Address [address] [place] [address] Care Team Providers Care House Mother Name Role Phone Unavailable Primary Care Provider Unavailabl e Source Comments [facility],non-owned Affiliates and Associated Physician Practices is amultiple site organization consisting of ambulatory clinics and hospital sitesin [place], [place], [place] and [place]. This disclosure is being madepursuant to the Care Everywhere program and may not contain all information available regarding this patient. Last updated 18.[facility] Social History Tobacco Use Types Packs/Day Years Used Date Smoking Tobacco: Never Assessed Sex and Gender Information Value Date Recorded Sex Assigned at Not on file Gender Identity Not on file Sexual Orientation Not on file Plan of Treatment Health Maintenance Due Date Last Done Comments COLOGUARD (AGES 45-75) - COL ON CA SCREENING 1951 COLON MONITORING 1951 COLONOSCOPY - COLON CA SCREENING 1951 CT COLONOGRAPHY - COLON CA SCREENING 1950 Colorectal Cancer Screening 1951 FIT - COLON CA SCREENING 1951 FLEX SIG - COLON CA SCREENING 1951 LIPID TESTING 1951 HEPATITIS C SCREENING 07/21/1969 DTAP/TDAP/TD VACCINES (1 - Tdap) 1970 PNEUMOCOCCAL VACCINE 50+ (1 of 1 - PCV) 2001 ZOSTER VACCINE (1 of 2) 2001 COVID-19 VACCINE ( - 2023-2 5 season) 2024 INFLUENZA VACCINE (#1) 2024 DEPRESSION SCREENING 08/10/2024 MEDICARE AWV CALENDAR YEAR 2024 Respiratory Syncytial Virus (RSV) Vaccine Pt: or over 60 yrs (1 - 1-dose 75+ series) 2026 HEPATITIS B VACCINE Aged Out No longe r eligible based on patient's age to complete this topic HIB VACCINE Aged Out No longer eligi ble based on patient's age to complete this topic HPV VACCINE Aged Out No longer eligi ble based on patient's age to complete this topic MENINGOCOCCAL (Group B) VACCINE Aged Out No longer eligible based on patient's age to complete this topic MENINGOCOCCAL VACCINE Aged Out No nica scott eligible based on patient's age to complete this topic
--- OUTSIDE RECORDS SUMMARY | 2024-10-14 08:54 | XMS_ITS | Referral Summary ---
Author Organization [facility] Address [address] [place] [address] Care Team Providers Care Technology Services Manager Name Role Phone Unavailable Primary Care Provider Unavailabl e Source Comments [facility] Affiliates and Associated Physician Practices is amultiple site organization consisting of ambulatory clinics and hospital sitesin [place], [place], [place]. This disclosure is being madepursuant to the Care Everywhere program and may not contain all information available regarding this patient. Last updated 18.[facility] [employer] Social History Tobacco Use Types Packs/Day Years Used Date Smoking Tobacco: Never Assessed Sex and Gender Information Value Date Recorded Sex Assigned at Not on file Gender Identity Not on file Sexual Orientation Not on file Plan of Treatment Not on file
--- OUTSIDE RECORDS SUMMARY | 2024-10-14 08:54 | XMS_ITS ---
Author Organization [facility] [address] Address [address] [place] [address] Care Team Providers Care Portable Machine Cutter Name Role Phone Leo Doss MD Unavailable [phone] Leo Doss MD Primary Care Provider [phone] Sravan Higgins MD Unavailable [phone] Morgan Ballard MD Unavailable Active Problems Problem Noted Date Diagnosed Date Diabetic retinopathy associa melissa with type 2 diabetes mellitus 01/20/2024 Morbid (severe) obesity due to excess calories 0 12/17/2021 Body mass index (BMI) 60.0-69.9, adult 2 Stage 3b chronic kidney disease 07/11/2021 S/P TAVR (transcatheter aortic valve replacement ) 10/25/2020 Chronic obstructive pulmonary disease 07/19/2020 Acute respiratory failure with hypoxemia 020 NSTEMI (non-ST elevated myocardial infarction) 0 04/02/2020 Overview (04/03/2020): Added automatically from request for surgery [id number] Nonrheumatic aortic valve stenosis 08/23/2019 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 Coronary artery disease invo lving mechoopda coronary artery of mechoopda heart without angina pectoris 08/11/2017 History of coronary artery stent placement 08/11 Morbid obesity with body mass index of 50.0-59.9 in adult 08/11/2017 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 Diabetes mellitus 07/17/2015 Current Treatment and Therapy Plans No current plan information found. Past Treatment and Therapy Plans No past plan information found. Lifetime Dose Tracking * Chemical Lifetime Dose Automatic Entry Manual Entr y Air kerma at the reference point (Ka,r) 3,920 mGy 0 mGy 3,920 mGy DLP 1,663 mGycm 1,663 mGycm 0 mGycm
--- OUTSIDE RECORDS SUMMARY | 2024-10-14 08:54 | XMS_ITS | Clinical Summary ---
Author Organization [facility] [address] Address [address] [place] [address] Care Team Providers Care Herbarium Worker Name Role Phone Leo Doss MD Unavailable [phone] Leo Doss MD Primary Care Provider [phone] Sravan Higgins MD Unavailable Morgan Ballard MD Unavailable Allergies No known active allergies Medications baclofen (LIORESAL) 10 mg tablet Take 1 tablet (10 mg total) by mouth nightly 30 tablet 0 Active FLUoxetine (PROzac) 20 mg capsule Take 1 capsule (20 mg total) by mouth daily 30 capsule 0 Active Additional Information Patient taking differently:20 mg oralNightly, Reported on 10/06/2024 insulin lispro (HumaLOG, ADMELOG) 100 unit/mL insulin pen Inject 1-14 Units under the skin 3 (three) times a day with meals (2 units for every 25 mg/dL blood glucose greater than 150 mg/dL up to max 14 units) Refer to After Visit Summary for Sliding Scale Insulin Instructions. 15 mL 0 Active atorvastatin (LIPITOR) 80 mg tablet Take 1 tablet (80 mg total) by mouth nightly 30 tablet 11 0 Active metoprolol tartrate (LOPRESSOR) 25 mg immediate release tablet Take 0.5 tablets (12.5 mg total) by mouth 2 (two) times a day 30 tablet 11 0 Active polyethylene glycol (MIRALAX) 17 gram packetIndicatio ns:constipation Administer 1 packet (17 g total) per feeding tube daily as needed for constipation 0 Active Additional Information Patient taking differently:17 goralDaily PRN, constipation, Indications: constipation, Reported on 10/06/2024 gabapentin (NEURONTIN) 300 mg capsule Take 1 capsule (300 mg total) by mouth nightly 30 capsule 11 0 Active Additional Information Patient taking differently: 600 mgoral2 times daily, Reported on 10/06/2024 insulin glargine (LANTUS) 100 unit/mL injection Inject 40 Units under the skin every morning 10 mL 0 Active Additional Information Patient taking differently:40 Units subcutaneousNightly, Reported on 10/06/2024 aspirin 81 mg enteric coated tablet Take 1 tablet (81 mg total) by mouth daily 30 tablet 11 0 Active ergocalciferol (VITAMIN D) 50,000 unit capsule Take 1 capsule (50,000 Units total) by mouth once a week Thursday Active SITagliptin-met formin (JANUMET) 50-1,000 mg per tablet Take 1 tablet by mouth 2 (two) times a day with meals Active HYDROcodone-josse taminophen (NORCO) 5-325 mg per tablet Take 1 tablet by mouth every 6 (six) hours as needed 0 Active Virtussin AC 10-100 mg/5 mL liquid Take 5 mL by mouth every 4 (four) hours as needed 1 Active pramipexole (MIRAPEX) 1 mg tablet Take 1 tablet (1 mg total) by mouth nightly at bedtime. 1 Active QUEtiapine (SEROquel) 50 mg tablet Take 1 tablet (50 mg total) by mouth nightly Active omega-3 fatty acids (FISH OIL CONCENTRATE ORAL) Take 1,200 mg by mouth 2 (two) times a day Active LORazepam (ATIVAN) 1 mg tablet Take 1 tablet (1 mg total) by mouth daily as needed 0 Active ferrous sulfate 325 mg (65 mg of elemental iron) tabletIndicatio ns:Iron Deficiency Anemia Take 1 tablet (325 mg total) by mouth daily with breakfast Active acetaminophen (TYLENOL) 325 mg tablet Take 2 tablets (650 mg total) by mouth every 6 (six) hours as needed for pain Active nitroglycerin (NITROSTAT) 0.[address] 1 tablet (0.4 mg total) under the tongue every 5 (five) minutes as needed for chest pain Active bumetanide (BUMEX) 2 mg tablet TAKE 1 TABLET(2 MG) BY MOUTH DAILY 90 tablet 3 3 Active clopidogreL (PLAVIX) 75 mg tablet TAKE 1 TABLET(75 MG) BY MOUTH DAILY 90 tablet 1 3 Active OneTouch Ultra Test strip 4 Active Farxiga 5 mg tablet Take 1 tablet (5 mg total) by mouth daily 4 Active diclofenac sodium (VOLTAREN) 1 % gel APPLY 4 GRAMS TOPICALLY TO BOTH KNEES FOUR TIMES DAILY 2 Active docosahexaenoic acid-epa 120-180 mg capsule Take 1,200 mg by mouth Active OneTouch Delica Plus Lancet 30 gauge misc 4 Active lisinopriL (PRINIVIL,ZESTR IL) 10 mg tablet 1 Active Ozempic 2 mg/dose (8 mg/3 mL) pen injector injection [address] (PROTONIX) 40 mg EC tablet Take 1 tablet (40 mg total) by mouth daily 2 Active tiZANidine (ZANAFLEX) 4 mg tablet TAKE 1 TABLET BY MOUTH EVERY AT BEDTIME NEEDED 1 Active traZODone (DESYREL) 100 mg tablet 4 Active albuterol HFA (PROVENTIL HFA,VENTOLIN HFA,PROAIR HFA) 90 mcg/actuation inhaler 4 Active FreeStyle Michelle 3 Sensor device 4 Active fluticasone propionate (FLONASE) 50 mcg/actuation nasal spray 4 Active triamcinolone (KENALOG) 0.1 % cream 4 Active Active Problems Problem Noted Date Diagnosed [...] (04/03/2020): Added automatically from request for surgery [id number] Nonrheumatic aortic valve stenosis 08/23/2019 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 Coronary artery disease invo lving cahto coronary artery of cahto heart without angina pectoris 08/11/2017 History of coronary artery stent placement 08/11 Morbid obesity with body mass index of 50.0-59.9 in adult 08/11/2017 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 Diabetes mellitus 07/17/2015 Encounters Date Type Department Care Team Description 10/06/2024 10:30 AM LAND LEVELER Office Visit [facility] Card[facility] [address] [place] [address] Leo Ribeiro MD S/P TAVR (transcatheter aortic valve replacement) (Primary Dx); Coronary artery disease involving cahto coronary artery of cahto heart without angina pectoris from Last 3 Months Immunizations Immunization Administration Dates Next Due Influenza, Quadrivalent, Rec ombinant, Egg Free, Preservative Free, Intramuscular 06/01/2019 Influenza, Trivalent, High D ose, Split, Preservative Free, Intramuscular 04/28/2018 Influenza, Trivalent, IM (MDV) 06/10/2021 Influenza, Trivalent, Preservative Free, Intramu scular 05/16/2015 Pneumococcal Polysaccharide PPV23 04/10/2017 Surgical History Surgery Date Site/Laterality Comments CHOLECYSTECTOMY CARDIAC STENT PLACEMENT APPENDECTOMY TONSILLECTOMY KNEE ARTHROSCOPY Bilateral HERNIA REPAIR ventral VEIN SURGERY vein removal left leg GANGLION CYST EXCISION Right arm Medical History Medical History Date Comments Hypertension Hypertension Type 2 diabetes mellitus (HCC) Obesity Aortic stenosis Sleep apnea Non Hodgkin's lymphoma (HCC) Chronic kidney disease stage 3 Coronary artery disease CHF (congestive heart failure) (HCC) Depression Peripheral neuropathy Pulmonary hypertension (HCC) Vitamin D deficiency Pneumonia Anemia Arthritis Hx antineoplastic chemotherapy Hx of radiation therapy Cataract Wrist fracture Family History Medical History Relation Name Comments Cancer Father skin Heart attack Father Myocardial Infa rction; Cause of : Myocardial Infarction Heart disease Father Lung disease Father Cancer Mother Dementia Mother Other Sister 2 Valve Replaceme nt; Relation Name Status Comments Father Mother Sister 1 Alive Sister 2 Social History Tobacco Use Types Packs/Day Years Used Date Smoking Tobacco: Never Smokeless Tobacco: Never Tobacco Cessation:Counseling Given: Not Answered Alcohol Use Standard Drinks/Week Comments No 0 (1 standard drink = 0.6 oz pur e alcohol) Sex and Gender Information Value Date Recorded Sex Assigned at Not on file Legal Sex Male 5:59 PM LAND LEVELER Gender Identity Not on file Sexual Orientation Not on file Obstetrics History Last Filed Vital Signs Vital Sign Reading Time Taken Comments Blood Pressure 138/68 10/06/2024 9:36 AM LAND LEVELER Pulse 81 10/06/2024 9:36 AM LAND LEVELER Temperature 36.9 C (98.4 F) 09/22/2020 8:10 AM LAND LEVELER Respiratory Rate 16 09/22/2020 8:10 AM LAND LEVELER Oxygen Saturation 95% 10/06/2024 9:3 6 AM LAND LEVELER Inhaled Oxygen Concentration - - Weight 181.4 kg (400 lb) 10/06/2024 9:3 6 AM LAND LEVELER per pt- wheelchair Height 172.7 cm (5' 8 ) 10/06/2024 9:36 AM LAND LEVELER Body Mass Index 60.82 10/06/2024 9:36 AM LAND LEVELER Plan of Treatment Health Maintenance Due Date Last Done Comments Albumin Creatinine Ratio, Urine 1951 Colon Cancer Screening-Colonoscopy 1950 Depression Screening 1951 Hepatitis C Screening 1950 Dilated Eye Exam 1951 Foot Exam 1951 DTaP/Tdap/Td Vaccine (1 - Tdap) 1962 Hepatitis B Screening 1969 Zoster Vaccine (1 of 2) 1970 Well Visit 65+ 2016 Pneumococcal vaccine 65+ (2 of 2 - PCV) 04/10/2018 04/10/2017 Hemoglobin A1C 10/05/2020 04/04/2020 Fall Risk Assessment 09/22/2021 09/22/2020 eGFR 09/22/2021 09/22/2020, 09/10, 09/20/2020, Additional history exists Influenza Vaccine (#1) 2024 , 06/01/2019, 04/28/2018, Additional history exists Lipid Panel 10/01/2024 10/01/2023, 07/10, 12/17/2021, Additional history exists Medical Devices Implanted Type Area Brick Yard Hand Device Identifier Shelf Expiration Date Model / Serial / Lot [employer] [id number] Gus 3 29mm Transcatheter Valve Aortic Bovine Sterile - [id number] - [id number] Implanted:Qty: 1 on 09/20/2020 by Morgan Ballard MD at [facility] Prosthetic Valve [employer] 12/25/2021 [id number] / [id number] / [employer] [id number] Device Closure Angio-Seal Vip Bondek-Plus Polyglyd L70 Cm Od6 Fr Odsec.035 In Vascular - [id number] Implanted:Qty: 1 on 04/06/2020 by Morgan Ballard MD at [facility] [employer] [id number] / / Procedures Procedure Name Priority Date/Time Associated Diagnosis Comments POCT LIPID PANEL Routine 10/01/2023 2:49 PM LAND LEVELER Lipid screening EGFR Routine 09/22/2020 5:41 AM LAND LEVELER HEMOGLOBIN A1C Routine 04/04/2020 2:22 AM CDT from Last 3 Months or Most Recently Relevant to Health Maintenance Results * POCT lipid panel (10/01/2023 2:49 PM LAND LEVELER) Cholesterol, POC 133 mg/dL HDL, POC 40 mg/dL Triglycerides, POC 172 mg/dL LDL Cholesterol POC 59 mg/dL Chol/HDL Ratio, POC 1.5 Non-HDL Cholesterol, POC 94 mg/dL Cholesterol Total, POC 133 mg/dL Capillary blood 10/01/2023 2 :49 PM LAND LEVELER us Leo Ribeiro MD POINT OF CARE TEST ORDER ZAIN Final Result * eGFR (09/22/2020 5:41 AM LAND LEVELER) eGFR 46 mL/min/1.7 3 m2 [facility] Comment: Interpretive Data Reference Interval Normal >/= 90 mL/min/1.73m2 Mildly decreased* 60 - 89 mL/min/1.73m2 Mildly to moderately decreased 45 - 59 mL/min/1.73m2 Moderately to severely decreased 30 - 44 mL/min/1.73m2 Severely decreased 15 - 29 mL/min/1.73m2 Kidney Failure < 15 mL/min/1.73m2 *Relative to young adult level Estimated glomerular filtration rate is determined by the CKD-EPI equation recommended by the National Kidney Foundation (KDIGO 2012 Clinical Practice Guideline for the Evaluation and Management of Chronic Kidney Disease. Kidney Intnl Suppl Aug 2012;3:1). The CKD-EPI equation should not be used for patients with unstable renal function and has not been validated in children and those over 70. Current interpretive data was last reviewed 2020 Blood specimen (specimen) 09/22/2020 5:41 AM LAND LEVELER 09/22/2020 6:16 AM LAND LEVELER us Morgan Ballard MD LAB BLOOD ORDERABLES Final Resul t M[facility] [address] Department [place] [address] * (ABNORMAL) Hemoglobin A1c (04/04/2020 2:22 AM CDT) Hgb A1C 6.8(H) 4.0 - 5.6 % MANDI Estimated Average Glucose 148 mg/dL [facility]I BURNS Comment: The ADA recommends reporting an estimated Average Glucose (eAG) with all Hemoglobin A1c results using the equation derived from a study of 507 normal and diabetic adults. Minority populations were underrepresented and children were not included. (Diabetes Care 31:7521-7774, 2008). The eAG is not equivalent to a fasting glucose. 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:ESBL K.pneumonia tracheal aspiraate 04/07/20 04/07/2020 Insurance MEDICARE [employer] Address: [address] [address] [place] [address] [facility] Address: [address] [address] [place] [address] MEDICARE SOLUTIONS Advance Directives For more information, please contact: [phone] * Full Code (Latest Code Status on File) Date Activated Date Inactivated Comments 09/20/2020 12:36 PM 09/22/2020 5:46 PM * Full Code Date Activated Date Inactivated Comments 04/02/2020 11:40 PM 04/22/2020 4:10 AM * Full Code Date Activated Date Inactivated Comments 04/02/2020 11:17 PM 04/02/2020 11:40 PM Care Teams Herbarium Worker Relationship Specialty Start Date End Date Leo Doss MD PCP - General Family Medicine 05/06/18 Leo Doss MD 01/15/18 Sravan Higgins MD Consulting Physician Vascular Surgery 04/21/20 Morgan Ballard MD [address] [facility] [address] [place] [address] Consulting Physician Cardiology 04/21/20
--- OUTSIDE RECORDS SUMMARY | 2024-10-14 08:54 | XMS_ITS | Patient Health Summary ---
Author Organization [facility] Address [address] [place] [address] Care Team Providers Care Guest Relations Officer Name Role Phone Unavailable Primary Care Provider Unavailabl e Note from [facility],non-owned Affiliates and Associated Physician Practices is amultiple site organization consisting of ambulatory clinics and hospital sitesin [place], [place], [place] and [place]. This disclosure is being madepursuant to the Care Everywhere program and may not contain all information available regarding this patient. Last updated 18.[facility] Social History Tobacco Use Types Packs/Day Years Used Date Smoking Tobacco: Never Assessed Sex and Gender Information Value Date Recorded Sex Assigned at Not on file Gender Identity Not on file Sexual Orientation Not on file Procedures * PATHOLOGY TISSUE(Performed 02/05/2018) * FLOW CYTOMETRY TISSUE PANEL(Performed 02/05/2018) Performed for Soft tissue disorder Results * PATHOLOGY TISSUE (02/05/2018 10:04 AM CDT) Case Report Surgical Pathology Report Case: [id number] Authorizing Provider: Neal Flores MD Collected: 02/05/2018 10:04 AM Pathologist: Keerthi Alston MD Received: 02/08/2018 04:28 PM Specimen: Groin Lymph Node, Lymph node 02/09/2018 5:04 PM [facility] Final Diagnosis Right inguinal mass, needle core biopsy: - Follicular lymphoma. - See description. 02/09/2018 5:04 PM [facility] Microscopic Description and Comment Review of the right inguinal mass needle core biopsy specimen demonstrates mostly small to intermediate-sized lymphocytes arranged in a vaguely nodular architecture. The majority of cells are centrocytes with occasional admixed centroblasts. The cells appear to be infiltrating through fibrous tissue. A deeper H+E stained recut prepared at the [facility] Department of Pathology confirms these findings. Immunohistochemistry is performed at the [facility] Department of Pathology to further evaluate the immunophenotype and immunoarchitecture of the tissue. By immunohistochemistry, the neoplastic cells express CD20, CD10, and BCL-2. Background T-cells are highlighted by CD3, CD5, and CD43. CD138 highlights sparse plasma cells. By CD21, there are predominantly tightly compact dendritic cell meshworks. Focal meshwork expansion is noted. The proliferation index by Ki-67 is variable, but is approximately 30% in the neoplastic cells. In summary, the right inguinal mass specimen shows involvement by a [id number] B-cell lymphoma that is most consistent with follicular lymphoma. Grading is not recommended to be performed on needle core biopsies, but rather, should be conducted on excisional biopsy samples. Correlation with clinical findings and relevant cytogenetic/molecular studies is required. XUAN/LORI 02/09/2018 5:04 PM [facility] Clinical History 67 yo man with a 5.7 x 10 cm right inguinal mass. 02/09/2018 5:04 PM [facility] Materials Received Received are 2 slides and 1 block labeled as Pascual Kowalski and A [id number] along with a copy of the outside pathology report. [place] [address]. All materials are returned to the referring institution, along with a copy of our final report. 02/09/2018 5:04 PM [facility] Disclaimer The performance characteristics of all immunohistochemical and indirect immunofluorescence stains (if any) cited in this report were determined by the [facility]. Some of these tests were developed by our own laboratory and have not been cleared or approved by the US Food and Drug Administration. The FDA does not require this test to go through premarket FDA review. These tests are used for clinical purposes. They should not be regarded as investigational or for research. This laboratory is certified under the Clinical Laboratory Improvement Amendments (CLIA) as qualified to perform high complexity clinical laboratory testing. This case has been personally reviewed and interpreted by the attending (teaching) pathologist. 02/09/2018 5:04 PM [facility] Synoptic Report NON-HODGKIN LYMPHOMA/LYMPHOID NEOPLASMS: Biopsy, Resection (NHL - All Specimens) CLINICAL Clinical Prognostic Factors and Indices: Other (specify): 5.7 x 10 cm right inguinal mass SPECIMEN Specimen: Other (specify): Right inguinal mass Procedure: Biopsy Tumor Site: Other tissue(s) or organ(s): Right inguinal mass TUMOR Histologic Type (Based on the 2008 WHO Classification): Mature B-Cell Neoplasms Histologic Type (Based on the 2008 WHO Classification): Follicular lymphoma SPECIAL STUDIES Immunophenotyping (Flow Cytometry and / or Immunohistochemistry) : Performed Specify Method(s) and Results: Immunohistochemistry: Tumor cells express CD20, CD10, and BCL-2. 02/09/2018 5:04 PM CDT [facility] Embedded Images 02/09/2018 5:04 PM CDT [facility] Pathology/Cytolo gy LYMPH NODE SPECIMEN / Unknown 02/05/2018 10:04 AM CDT 02/08/2018 4:28 PM CDT Neal Flores MD LAB - PATHOLOGY/CYTO LOGY ORDERABLES Performing Organization Address [facility] de Phone Number [facility] [address] [phone] * FLOW CYTOMETRY TISSUE PANEL (02/05/2018 10:04 AM CDT) Case Report Flow Cytometry Case: [id number] Authorizing Provider: Neal Flores MD Collected: 02/05/2018 10:04 AM Pathologist: Keerthi Alston MD Received: 02/05/2018 01:44 PM Specimen: Soft Tissue Mass, RIGHT INGUINAL MASS 8 4:58 PM CDT [facility] Final Diagnosis Inguinal soft tissue mass, Right , Flow cytometric immunophenotypic analysis: - CD5-negative, [id number] mature B-cell lymphoma. - See interpretation. 8 4:58 PM CDT [facility] Flow Cytometry Interpretation The right [...] the flow cytometry specimen is reviewed for customer quality specialist purposes. Overall, the right inguinal mass specimen shows evidence of involvement by a CD5-negative, [id number] mature B-cell lymphoma. Correlation with clinical findings and the concurrent tissue biopsy ([facility]; [id number]) is required for further classification. KR/ADVOCACY DIRECTOR/engineering teacher 8 4:58 PM [facility] Flow Cytometry Results Differential Result Comment Flow Cell Count /uL 8100 Total Viability % 78.0 Lymphocytes % 88 Dim CD45 Region % 1 Monocytes % 4 Granulocytes % 0 8 4:58 PM [facility] Reason for test Soft tissue disorder 729.90 8 4:58 PM [facility] Client Specimen ID # [id number] 4:58 PM [facility] Number of markers 16 were performed. A Flow CD3 A Flow CD10 A Flow CD20 A Flow CD23 A Flow CD2 A Flow CD4 A Flow CD1a A Flow CD5 A Flow CD19 A Flow CD34 A Flow CD45 A Flow CD7 A Flow CD8 A Flow CD30 A Leland+CD19+ A Lambda+CD19+ 8 4:58 PM [facility] Disclaimer Test performed at [facility], [address] [place] [address], [address]. *The established laboratory minimum viability is 70%. [...] high complexity clinical testing. 8 4:58 PM [facility] Embedded Images 4:58 PM [facility] Pathology/Cytolo gy SOFT TISSUE MASS / Unknown 02/05/2018 10:04 AM CDT 02/05/2018 1:44 PM CDT Neal Flores MD LAB - PATHOLOGY/CYTO LOGY ORDERABLES [facility] [address] [phone]
--- OUTSIDE RECORDS SUMMARY | 2024-10-14 08:54 | XMS_ITS | Encounter Summary ---
Author Organization [facility] Address [address] [facility] [place] [address] Care Team Providers Care Field Supervisor Name Role Phone Unavailable Primary Care Provider Unavailabl e Encounter Details Date Type Department Care Team (Late st Contact Info) Description 02/08/2018 Lab Requisition [facility] Care Pathology Lab [address] [place] [address] Neal Flores MD [address] [facility] [address] [place] [address] Social History Tobacco Use Types Packs/Day Years Used Date Smoking Tobacco: Never Assessed Sex and Gender Information Value Date Recorded Sex Assigned at Not on file Gender Identity Not on file Sexual Orientation Not on file documented as of this encounter Plan of Treatment Not on file documented as of this encounter Procedures Procedure Name Priority Date/Time Associated Diagnosis Comments PATHOLOGY TISSUE Routine 02/05/2018 10:0 4 AM CDT documented in this encounter Results * PATHOLOGY TISSUE (02/05/2018 10:04 AM CDT) Case Report Surgical Pathology Report Case: [id number] Authorizing Provider: Neal Flores MD Collected: 02/05/2018 10:04 AM Pathologist: Keerthi Alston MD Received: 02/08/2018 04:28 PM Specimen: Groin Lymph Node, Lymph node 02/09/2018 5:04 PM CDT [facility] Final Diagnosis Right inguinal mass, needle core biopsy: - Follicular lymphoma. - See description. 02/09/2018 5:04 PM CDT [facility] Microscopic Description and Comment Review of the right inguinal mass needle core biopsy specimen demonstrates mostly small to intermediate-sized lymphocytes arranged in a vaguely nodular architecture. The majority of cells are centrocytes with occasional admixed centroblasts. The cells appear to be infiltrating through fibrous tissue. A deeper H+E stained recut prepared at the [facility] Department of Pathology confirms these findings. Immunohistochemistry is performed at the [facility] Department of Pathology to further evaluate the [...] inguinal mass specimen shows involvement by a [id number] B-cell lymphoma that is most consistent with follicular lymphoma. Grading is not recommended to be performed on needle core biopsies, but rather, should be conducted on excisional biopsy samples. Correlation with clinical findings and relevant cytogenetic/molecular studies is required. XUAN/LORI 02/09/2018 5:04 PM [facility] PATHOLOGY LAB Clinical History 67 yo man with a 5.7 x 10 cm right inguinal mass. 02/09/2018 5:04 PM [facility] PATHOLOGY LAB Materials Received Received are 2 slides and 1 block labeled as Pascual Kowalski and A [id number] along with a copy of the outside pathology report. [place] [address]. All materials are returned to the referring institution, along with a copy of our final report. 02/09/2018 5:04 PM [facility] PATHOLOGY LAB Disclaimer The performance characteristics of all immunohistochemical and indirect immunofluorescence stains (if any) cited in this report were determined by the Histopathology Laboratory of [facility]. Some of these tests were developed by [...] the attending (teaching) pathologist. 02/09/2018 5:04 PM [facility] PATHOLOGY LAB Synoptic Report NON-HODGKIN LYMPHOMA/LYMPHOID NEOPLASMS: [...] CD10, and BCL-2. 02/09/2018 5:04 PM CDT [facility] PATHOLOGY LAB Embedded Images 02/09/2018 5:04 PM T [facility] PATHOLOGY LAB Pathology/Cytolo gy LYMPH NODE SPECIMEN / Unknown 02/05/2018 10:04 AM CDT 02/08/2018 4:28 PM CDT Neal Flores MD LAB - PATHOLOGY/CYTO LOGY ORDERABLES Performing Organization Address City/State/[facility] Co de Phone Number [facility] PATHOLOGY LAB [address] [place], [place] [id number] [place] [address] documented in this encounter Visit Diagnoses Not on filedocumented in this encounter
--- OUTSIDE RECORDS SUMMARY | 2024-10-14 08:54 | XMS_ITS | Continuity of Care Document ---
Author Organization [facility] Address [address] [place] [address] Phone Care Team Providers Care Loan Servicing Representative Name Role Phone Leo Escobedo MD Unavailable Unavailable Procedures Procedure Date Office/outpatient visit,est, mod 2008 [...] Provider Providers Copied on Encounter Office/outpa tient visit,[facility], [facility], [address], [id number], [place] tel:[phone] [facility] No Information 1 9 Gregg Baliey. [address] [facility] [place] [address], [place], [place], [id number], [place]. tel:[phone] Office/outpa tient visit,[facility], [facility], [address], [id number], [place] tel:[phone] [facility] No Information 9 Gregg Bailey. [address] [address], [place], [place], [id number], [place]. tel:[phone] Office/outpa tient visit,[facility], [facility], [address] [address], [place], [place], [id number], [place] tel:[phone] [facility] No Information 0 4200 9 Gregg Bailey. [address], [id number], [place]. tel:[phone] [facility], [address], [id number], [place] tel:[phone] [facility] No Information 2 9 Administrative Provider. [address] [address], [place], [place], [id number], [place]. tel:[phone] Office/outpa tient visit,[facility] by [facility], [address], [id number], [place] tel:[phone] [facility] No Information 8 Gregg Bailey. [address] [facility], [place], [place], [id number], [place]. tel:[phone] [facility], [address], [id number], [place] tel:[phone] [facility] No Information 8 Gregg Bailey. [address] [facility], [place], [id number], [place]. tel:[phone] [facility], [address], [id number], [place] tel:[phone] [facility] No Information 8 Gregg Bailey. [address] [facility], [address], [id number], [place]. tel:[phone] [facility], [address], [id number], [place] tel:[phone] [facility] No Information 8 Gregg Bailey. [address], [id number], [place]. tel:[phone] Office/outpa tient visit,[facility], [address], [id number], [place] tel:[phone] [facility] No Information 8 Gregg Bailey. [address] [facility], [address], [place], [id number], [place]. tel:[phone] Family History Family Member Type Diagnosis Age At Onset No Information Payers Payer name Insurance type Covered libertarian ID Authoriza tion(s) No Information Social History [...]
--- OUTSIDE RECORDS SUMMARY | 2024-10-14 08:54 | XMS_ITS | Encounter Summary ---
Author Organization [facility] Address [address] [place] [address] Care Team Providers Care Fabrication Lead Name Role Phone Leo Doss MD Primary Care Provider [phone] Encounter Details Date Type Department Care Team ([facility] Contact Info) Description 08/25/2018 Chart Note [facility] Radiation Therapy [address] [place] [address] [place] [address] [place] [address] Social History Tobacco Use Types Packs/Day Years Used Date Smoking Tobacco: Never Alcohol Use Standard Drinks/Week Comments Yes 0 (1 standard drink = 0.6 oz pur e alcohol) rarely Sex and Gender Information Value Date Recorded Sex Assigned at Not on file Legal Sex Male 3:20 PM CDT Gender Identity Not on file Sexual Orientation Not on file documented as of this encounter Plan of Treatment Upcoming Encounters Date Type Department Care Team ([facility] Contact Info) Description 11/09/2024 11:00 AM CDT Office Visit [facility] - Faust[address] [facility] [address] [place] [address] Monty Oliveira MD [address] [facility] [address] [place] [address] documented as of this encounter Visit Diagnoses Not on filedocumented in this encounter Care Teams Fabrication Lead Relationship Specialty Start Date End Date Leo Doss MD PCP - General Family Practice 03/04/18 documented as of this encounter
--- OUTSIDE RECORDS SUMMARY | 2024-10-14 08:54 | XMS_ITS | Referral Summary ---
Author Organization [facility] [address] [place] [address] [address] [place] [address] Care Team Providers Care Print Operator Name Role Phone Leo Doss MD Unavailable [phone] Leo Doss MD Primary Care Provider [phone] Sravan Higgins MD Unavailable [phone] Morgan Ballard MD Unavailable Encounters Date Type Department Care Team Description 10/06/2024 10:30 AM LOOM SETTER Office Visit 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 from Last 3 Months Allergies No known active allergies Medications baclofen (LIORESAL) 10 mg tablet Take 1 tablet (10 mg total) by mouth nightly 30 tablet 0 Active FLUoxetine (PROzac) 20 mg capsule Take 1 capsule (20 mg total) by mouth daily 30 capsule 11 0 Active Additional Information Patient taking differently:20 [...] by mouth nightly 30 tablet 0 Active metoprolol tartrate (LOPRESSOR) 25 mg immediate release tablet Take 0.5 tablets (12.5 mg total) by mouth 2 (two) times a day 30 tablet 0 Active polyethylene glycol (MIRALAX) 17 gram packetIndicatio ns:constipation Administer 1 packet (17 g total) per feeding tube daily as needed for constipation 0 Active Additional Information Patient taking differently:17 goralDkristiny PRN, constipation, Indications: constipation, Reported on 10/06/2024 gabapentin (NEURONTIN) 300 mg capsule Take 1 capsule (300 mg total) by mouth nightly 30 capsule 0 Active Additional Information Patient taking differently: 600 mgoral2 times daily, Reported on 10/06/2024 insulin glargine (LANTUS) 100 unit/mL injection Inject 40 Units under the skin every morning 10 mL 0 Active Additional Information Patient taking differently:40 Units subcutaneousNightly, Reported on 10/06/2024 aspirin 81 mg enteric coated tablet Take 1 tablet (81 mg total) by mouth daily 30 tablet 0 Active ergocalciferol (VITAMIN D) 50,000 unit [...] (04/03/2020): Added automatically from request for surgery [id number] Nonrheumatic aortic valve stenosis 08/23/2019 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 Coronary artery disease invo lving coyote valley coronary artery of coy[place] heart without angina pectoris 08/11/2017 History of coronary artery stent placement 08/11 Morbid obesity with body mass index of 50.0-59.9 in adult 08/11/2017 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 Diabetes mellitus 07/17/2015 Immunizations Immunization Administration Dates Next Due Influenza, Quadrivalent, Rec ombinant, Egg Free, Preservative Free, Intramuscular 06/01/2019 Influenza, Trivalent, High D ose, Split, Preservative Free, Intramuscular 04/28/2018 Influenza, Trivalent, IM (MDV) 06/10/2021 Influenza, Trivalent, Preservative Free, Intramu scular 05/16/2015 Pneumococcal Polysaccharide PPV23 04/10/2017 Social History Tobacco Use Types Packs/Day Years Used Date Smoking Tobacco: Never Smokeless Tobacco: Never Tobacco Cessation:Counseling Given: Not Answered Alcohol Use Standard Drinks/Week Comments No 0 (1 standard drink = 0.6 oz pur e alcohol) Sex and Gender Information Value Date Recorded Sex Assigned at Not on file Legal Sex Male 5:59 PM LOOM SETTER Gender Identity Not on file Sexual Orientation Not on file Last Filed Vital Signs Vital Sign Reading Time Taken Comments Blood Pressure 138/68 10/06/2024 9:36 AM LOOM SETTER Pulse 81 10/06/2024 9:36 AM LOOM SETTER Temperature 36.9 C (98.4 F) 09/22/2020 8:10 AM LOOM SETTER Respiratory Rate 16 09/22/2020 8:10 AM LOOM SETTER Oxygen Saturation 95% 10/06/2024 9:3 6 AM LOOM SETTER Inhaled Oxygen Concentration - - Weight 181.4 kg (400 lb) 10/06/2024 9:3 6 AM LOOM SETTER per pt- wheelchair Height 172.7 cm (5' 8 ) 10/06/2024 9:36 AM LOOM SETTER Body Mass Index 60.82 10/06/2024 9:36 AM LOOM SETTER Plan of Treatment Not on file Medical Devices Implanted Type Area Dolly Operator Device Identifier Shelf Expiration Date Model / Serial / Lot [employer] [id number] Gus 3 29mm Transcatheter Valve Aortic Bovine Sterile - [id number] - [id number] Implanted:Qty: 1 on 09/20/2020 by Morgan Ballard MD at [facility] Prosthetic Valve [employer] 12/25/2021 [id number] / [id number] / [employer] [id number] Device Closure Angio-Seal Vip Bondek-Plus Polyglyd L70 Cm Od6 Fr [id number] In Vascular - [id number] Implanted:Qty: 1 on 04/06/2020 by Morgan Ballard MD at [facility] [employer] [id number] / / Procedures Procedure Name Priority Date/Time Associated Diagnosis Comments POCT LIPID PANEL Routine 10/01/2023 2:49 PM LOOM SETTER Lipid screening EGFR Routine 09/22/2020 5:41 AM LOOM SETTER HEMOGLOBIN A1C Routine 04/04/2020 2:22 AM CDT from Last 3 Months or Most Recently Relevant to Health Maintenance Results * POCT lipid panel (10/01/2023 2:49 PM LOOM SETTER) Cholesterol, POC 133 mg/dL HDL, POC 40 mg/dL Triglycerides, POC 172 mg/dL LDL Cholesterol POC 59 mg/dL Chol/HDL Ratio, POC 1.5 Non-HDL Cholesterol, POC 94 mg/dL Cholesterol Total, POC 133 mg/dL Capillary blood 10/01/2023 2 :49 PM LOOM SETTER Leo Ribeiro MD POINT OF CARE TEST ORDER ZAIN Final Result * eGFR (09/22/2020 5:41 AM LOOM SETTER) eGFR 46 mL/min/1.7 3 m2 MANDI Comment: Interpretive Data Reference Interval Normal >/= [...] 2020 Blood specimen (specimen) 09/22/2020 5:41 AM LOOM SETTER 09/22/2020 6:16 AM LOOM SETTER Morgan Ballard MD LAB BLOOD ORDERABLES Final Resul t [facility] [address] Department [place] [address] * (ABNORMAL) Hemoglobin A1c (04/04/2020 2:22 AM CDT) Hgb A1C 6.8(H) 4.0 - 5.6 % MANDI Estimated Average Glucose 148 mg/dL MANDI BURNS Comment: The ADA recommends reporting an estimated Average Glucose (eAG) with all Hemoglobin A1c results using the equation derived from a study of 507 normal and diabetic adults. Minority populations were underrepresented and children were not included. (Diabetes Care 31:5868-1660, 2008). The eAG is not equivalent to a fasting glucose. 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 K.pneumonia tracheal aspiraate 04/07/20 04/07/2020 Insurance MEDICARE SOLUTIONS MEDICARE SOLUTIONS MEDICARE SOLUTIONS Advance Directives For more information, please contact: [phone] * Full Code (Latest Code Status on File) Date Activated Date Inactivated Comments 09/20/2020 12:36 PM 09/22/2020 5:46 PM * Full Code Date Activated Date Inactivated Comments 04/02/2020 11:40 PM 04/22/2020 4:10 AM * Full Code Date Activated Date Inactivated Comments 04/02/2020 11:17 PM 04/02/2020 11:40 PM Care Teams Print Operator Relationship Specialty Start Date End Date Leo Doss MD PCP - General Family Medicine 05/06/18 Leo Doss MD 01/15/18 Sravan Higgins MD Consulting Physician Vascular Surgery 04/21/20 Morgan Ballard MD [address] [place] [address] Consulting Physician Cardiology 04/21/20
--- OUTSIDE RECORDS SUMMARY | 2024-10-14 08:55 | XMS_ITS | Clinical Summary ---
Author Organization [facility] Address [address] [place] [address] Phone Care Team Providers Care Office Specialist Name Role Phone Leo Doss MD Primary Care Provider [phone] Allergies No known active allergies Medications Medication Sig Dispensed Refills Start Date End Date Status clopidogrel (PLAVIX) 75 MG tablet 12/10/2020 Active lisinopril (PRINIVIL) 10 MG tablet 11/20/2020 Active ferrous sulfate 325 (65 Fe) MG tablet Take by mouth Active cholecalciferol (D3-50) 1.25 MG (31851 UT) capsule Take 100,000 Units by mouth once a week Active Janumet 50-1000 MG per tablet Take 1 tablet by mouth 2 (two) times a day 01/19/2021 Active gabapentin (NEURONTIN) 600 MG tablet Take 1,200 mg by mouth daily Active QUEtiapine (SEROquel) 50 MG tablet Take 50 mg by mouth every night 01/20/2021 Active Stedman-3 Fatty Acids (Super Stedman-3) 1000 MG capsule Take 1,200 mg by mouth Active FLUoxetine (PROzac) 20 MG capsule Take 20 mg by mouth 1 (one) time each day 01/25/2021 Active atorvastatin (LIPITOR) 80 MG tablet Take 80 mg by mouth 1 (one) time each day 10/28/2020 Active tiZANidine (ZANAFLEX) 4 MG tablet TAKE 1 TABLET BY MOUTH EVERY AT BEDTIME NEEDED 01/13/2021 Active pramipexole (MIRAPEX) 1 MG tablet Take 1 mg by mouth every night 01/25/2021 Active Victoza 18 MG/3ML injection ADMINISTER 1.8 MG UNDER THE SKIN DAILY 01/25/2021 Active insulin lispro (HumaLOG KWIKPEN) 200 UNIT/ML solution pen-injector injection INJ 8 UNITS WITH BREAKFAST AND 8 UNITS WITH SUPPER D 07/21/2018 Active Insulin Pen Needle (BD Pen Needle Ailin U/F) 32G X 4 MM misc USE TID AND PRN UTD 09/06/2019 Activ e Lantus SoloStar 100 UNIT/ML injection INJECT 40 UNITS SUBCUTANEOUS EVERY MORNING 01/25/2021 Active acetaminophen (TYLENOL) 325 MG tablet Take 650 mg by mouth Acti ve OneTouch Ultra test strip TEST BLOOD SUGAR THREE TIMES DAILY 12/25/2020 Active HYDROcodone-acetam inophen (NORCO) 5-325 MG per tablet Take 1 tablet by mouth 05/31/2020 Active nitroglycerin (NITROSTAT) 0.[address] 0.4 mg under the tongue Active ergocalciferol (VITAMIN D2) 1.25 MG (25870 UT) capsule TAKE 1 CAPSULE BY MOUTH EVERY WEEK ON Wednesdays07/15/2021 Active metoprolol tartrate (LOPRESSOR) 25 MG tablet Take 1 tablet (25 mg total) by mouth 2 (two) times a day 60 tablet 11 07/17/2021 Active bumetanide (BUMEX) 2 MG tablet 12/17/2021 Active Diclofenac Sodium 1 % gel APPLY 4 GRAMS TOPICALLY TO BOTH KNEES FOUR TIMES DAILY 12/20/2021 Active OneTouch Delica Lancets 30G misc USE TO TEST BLOOD SUGARS 4 TIMES DAILY 10/25/2021 Active lidocaine-prilocai ne (EMLA) 2.5-2.5 % cream APPLY TO PORT SITE 30 TO 60 MINUTES PRIOR TO USE 10/23/2021 Active traZODone (DESYREL) 100 MG tablet Take 100 mg by mouth every night 12/20/2021 Active pantoprazole (PROTONIX) 40 MG EC tablet Take 40 mg by mouth 1 (one) time each day 12/25/2021 Active Active Problems Problem Noted Date Diagnosed Date Body mass index (BMI) 60.0-69.9, adult 2 Chronic kidney disease stage 3B 07/11/2021 History of aortic valve replacement 10/25/2020 Chronic obstructive pulmonary disease 07/19/2020 Type 2 diabetes mellitus wit h diabetic chronic kidney disease 07/19/2020 Acute hypoxemic respiratory failure 04/04/2020 Myocardial infarction 04/02/2020 Overview (01/26/2021): Added automatically from request for surgery [id number] Coronary atherosclerosis 08/11/2017 Immunizations Name Administration Dates Next Due Influenza TIV (IM) 06/10/2021 Pneumococcal Polysaccharide 04/10/2017 Social History Tobacco Use Types Packs/Day Years Used Date Smoking Tobacco: Never Smokeless Tobacco: Never Alcohol Use Standard Drinks/Week Comments Not Currently 0 (1 standard drink = 0.6 oz pur e alcohol) Sex and Gender Information Value Date Recorded Sex Assigned at Not on file Gender Identity Not on file Sexual Orientation Not on file Last Filed Vital Signs Vital Sign Reading Time Taken Comments Blood Pressure 106/70 01/16/2022 10:20 AM CDT Pulse 72 01/16/2022 10:20 AM CDT Temperature 37.1 C (98.7 F) 01/16/2022 10:20 AM CDT Respiratory Rate - - Oxygen Saturation - - Inhaled Oxygen Concentration - - Weight 178 kg (392 lb) 01/16/2022 10:20 AM CDT Height 175.3 cm (5' 9 ) 01/16/2022 10:20 AM CDT Body Mass Index 57.89 01/16/2022 10:20 AM CDT Plan of Treatment Health Maintenance Due Date Last Done Comments Pneumococcal PPSV23/PCV13 65 + Years / High and Highest Risk (2 of 3 - PCV) 04/10/2018 04/10/2017 Pneumococcal PPSV23/PCV13 65 + Years / Low and Medium Risk (2 of 3 - PCV) 04/10/2018 04/10/2017 Influenza Vaccine (#1) 2024 06/10/2021 Care Teams Office Specialist Relationship Specialty Start Date End Date Leo Doss MD [address] [place] [address] PCP - General Internal Medicine 01/21/21
--- OUTSIDE RECORDS SUMMARY | 2024-10-14 08:55 | XMS_ITS | Continuity of Care Document ---
Author Organization [facility] [employer] [facility] Address [address] [place] [address] Phone Care Team Providers Care Cool Roofing Installer Name Role Phone Chelsey Marcos OD Unavailable Unavailable Allergies, Adverse Reactions, Alerts Substance Reaction Status Criticality No Known Allergies Active No Inform ation Medications Medication Instructions Dosage Effective Dates (start - stop) Status Comments Aspirin 81 mg Tab, Delayed Release take 1 tablet (81MG) by ORAL route every day 81 MG - Active Nitromist 0.4 mg/Dose [place], Aerosol place 1 spray (0.4MG) by Translingual [...] Diagnoses Date Provider Providers Copied on Encounter [facility], [address], [place], [place], [id number], tel:[phone] SEC [place] Professiona l Complete Exam (chief complaint) Type 2 diabetes mellitus without complication sCombined forms of age-related cataract, bilateral Sep-1 7-202 4 Hemant OD Chelsey. [address] [place] [address] [employer] [facility], [address], [place], [place], [id number], . tel:[phone] Polina zaragoza MD.Referrin g Provider: Leo Doss MD, [address] [place], [address]. 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 [address] [place] [address], [address], [place], [place], [id number], [place]. tel:[phone] Polina zaragoza MD.Speciali st: Polina zaragoza MD, [address], [place], [address]. tel:[phone] ring Provider: Leo Doss MD, [address] [place], [address]. tel:[phone] [facility], [address] [place] [address] [address], [place], [place], [address], [place] tel:[phone] [place] Profession[place] Complete Exam (chief complaint) Type 2 diab with mild nonp rtnop without mclr edema, r eyeAge-relat ed nuclear cataract, bilateral Oct-0 8-201 9 Elsa Mckay. [address] [place] [address] [employer] [facility], [address], [place], [place], [address], [place]. tel:[phone] Specialist: Polina zaragoza MD, [address], [place], [address]. tel:[phone] alist: Polina zaragoza MD, [address], [place], [address]. tel:[phone] ring Provider: Leo Doss MD, [address] [place], [address]. tel:[phone] [facility], [address] [place] [address] [address], [place], [place], [id number], [place] tel:[phone] SEC [place] Professiona [place] Complete Exam (chief complaint) Age-related nuclear cataract, bilateralTyp e 2 diabetes mellitus without complication sLong term (current) use of insulin 7 Le Mars Mckay. [address] [place] [address] [employer] [facility], [address], [place], [address], [place]. tel:[phone] Referring Provider: Leo Doss MD, [address] [place], [address]. tel:[phone] [facility], [address] [place] [address] [address], [place], [place], [address], [place] tel:[phone] [place] Profession[place] No Information 6 Arrington Pallavi. [address] [place], [address], [place]. tel:[phone] Office/outpat ient Visit, [facility], [address] [place] [address] [address], [place], [place], [address], [place] tel:[phone] [place] Profession[place] 5 Month Cataract Check (chief complaint) No Information 0 6 Le Mars Mckay. [address] [place] [address] [employer] [facility], [address], [place], [place], [address], [place]. tel:[phone] Specialist: Tali Rodas MD, [address] [facility], [place], [address]. tel:[phone] ring Provider: Leo Doss MD, [address] [place], [address]. tel:[phone] [facility], [address], [place], [place], [address], [place] tel:[phone] [place] Profession[place] Diabetic eye exam (chief complaint) No Information Dec-0 8-201 5 Elsa Mckay. [address] [place] [address] [employer] [facility], [address], [place], [place], [address], [place]. tel:[phone] Referring Provider: Leo Doss MD, [address] [place], [address]. tel:[phone] [facility], [address] [place] [address] [address], [place], [place], [address], [place] tel:[phone] [place] Professiona l No Information 0 4-201 5 [facility] [address] [facility], [address], [place], [place], [address], [place]. tel:[phone] [facility], [address], [place], [place], [address], [place] tel:[phone] SEC Michi marcum comprehensiv e exam (chief complaint) No Information 6 3 Le Mars Mckay. [address] [place] [address] [employer] [facility], [address], [place], [place], [address], [place]. tel:[phone] Referring Provider: Leo Doss MD, [address] [place], [address]. tel:[phone] [facility], [address] [place] [address] [address], [place], [place], [address], [place] tel:[phone] SEC Michi Littlejohn COMMON COMPLAINTS (chief complaint) No Information 1 1 Elsa Mckay. [address] [place] [address] [employer] [facility], [address], [place], [place], [address], [place]. tel:[phone] Referring Provider: Leo Doss MD, [address] [place], [address]. tel:[phone] [facility], [address] [place] [address] [address], [place], [place], [address], tel:[phone] SEC Michi N [place] No Information 6-201 0 Le Mars Mckay. [address] [place] [address] [employer] [facility], [address], [place], [place], [address], . tel:[phone] Referring Provider: Leo Doss MD, [address] [place], [address]. tel:[phone] [facility], [address] [place] [address] [address], [place], [place], [address], tel:[phone] SEC Michi N [place] No Information 3-200 9 Elsa Mckay. [address] [place] [address] [employer] [facility], [address], [place], [place], [address], [place]. tel:[phone] Referring Provider: Leo Doss MD, [address] [place], [address]. tel:[phone] Office/outpat ient Visit, [facility], [address] [place] [address] [address], [place], [place], [address], tel:[phone] SEC Michi N [place] No Information 6-200 9 Elsa Mckay. [address] [place] [address] [employer] [facility], [address], [place], [place], [address], [place]. tel:[phone] Referring Provider: Leo Doss MD, [address] [place], [address]. tel:[phone] Office Consultation [facility], [address] [place] [address] [address], [place], [place], [address], tel:[phone] SEC Michi N [place] No Information 6-200 7 Elsa Mckay. [address] [place] [address], [address], [place], [place], [address], . tel:[phone] Referring Provider: Leo Doss MD, [address] [place], [address]. tel:[phone] Family History Family Member Type Diagnosis Age At Onset Father Problem (finding) diabetes jasmin michele in first degree relative Father Problem (finding) glaucoma Payers Payer name Insurance type Covered green party ID Shivani gonzalez(s) AARP Medicare Complete CI [id number] Social History Type Description Quantity Date Captured [...] Action Status Patient Education Cataracts: Care Instruc tions completed Patient Education Cataracts: Care Instruc tions completed Patient Education Cataracts: Care Instruc tions [...] [facility] pt reports BS was 200 this am [...] Instruction Additional Infor lucina Impression/Plan Impression/Plan Impression/Plan Follow up - 1 yr complete exam Impression/Plan - Ca taract presence discussed and [...] Letter generated and sent to Dr. Doss Age-related nuclear cataract, bilateral - Surgery not indicated now. Related to Age-related nuclear cataract, bilateral Type 2 diabetes albina itus without complications [...] exam Related to See impression: general plan INCIPIENT CATARACT, OU - vision not affected - will continue to monitor - Discussed diagnosis in detail with patient. No treatment is required at this time. Will continue to observe condition and or symptoms. Related to INCIPIENT CATARACT - 1 year comp Related to Zahira n - Dr. Doss-dict Related to D sedricktes Type II Diabetes Type II, - Will continue to monitor condition. Related to Diabetes Type II Drusen, OU - vision not affected - will continue to monitor - Discussed diagnosis with patient. Reviewed treatment options with patient. No treatment is required at present time. Will continue to monitor condition. Taking vitamins has shown to improve vision related to macular degeneration. Related to Drusen Assessments Type Assessment Date assessment Type 2 diabetes mellitus without complications assessment Combined forms of age-related ca taract, bilateral Patient Care Teams Name Effective Dates (start - stop) Status Members No Information
[2024-10-14 13:40] LABS: Hematocrit 39.7 % (42.0-52.0); Hemoglobin 11.8 g/dL (14.0-18.0); Mean Corpuscular HGB Conc 29.7 g/dl (32-36); Mean Corpuscular Hemoglobin 26.8 pg (26-34); Mean Platelet Volume 10.5 fl (7.4-10.4); Platelet Count Result 230 k/mm3 (150-375); Red Blood Count 4.41 M/mm3 (4.6-6.20); Red Cell Distribution Width 17.3 % (11.5-14.5); White Blood Count 8.7 K/mm3 (4.5-10.0)
[2024-10-14 14:25] LABS: Albumin Level 3.5 g/dL (3.5-5.1); Anion Gap 7 mmol/L (4-12); Blood Urea Nitrogen 34 mg/dL (9-20); Calcium 9.1 mg/dL (8.4-10.2); Carbon Dioxide 32 mmol/L (22-30); Chloride 100 mmol/L (98-107); Estimated Glomerular Filt Rate 33; Glucose 206 mg/dL (65-110); Phosphorus 3.3 mg/dL (2.5-4.5); Potassium 4.2 mmol/L (3.4-5.0); Sodium 139 mmol/L (137-145)
[2024-10-14 14:30] LABS: Hemoglobin A1C 7.8 % (<5.7)
[2024-10-14 14:34] LABS: Parathyroid Intact 73.3 pg/mL (14.5-75.2)
[2024-10-14 15:15] LABS: Creatinine Urine 120.5 mg/dL
[2024-10-14 15:21] LABS: Vitamin D 25 Hydroxy 26.1 ng/mL
[2024-10-14 15:22] LABS: MALB Creatinine Ratio 6.4 mg/g (0-30); Microalbumin Urine Random 7.7 mg/L (0-16.7)
== END 2024-10-14 08:40 | disposition home or self-care (01) ==
PROVIDERS: PCP Family Medicine; Visit Provider Internal Medicine Nephrology
DX: I13.0 Hypertensive heart and chronic kidney disease with heart failure and stage 1 through stage 4 chronic kidney disease, or unspecified chronic kidney disease (principal); I50.9 Heart failure, unspecified; E11.22 Type 2 diabetes mellitus with diabetic chronic kidney disease; N18.32 Chronic kidney disease, stage 3b; E21.1 Secondary hyperparathyroidism, not elsewhere classified
CPT/HCPCS: 36415; 80069; 82043; 82306; 83036; 83970; 85027

== ENCOUNTER 2025-04-12 08:38 | Outpatient (CLI) | payer MEDICARE, SELFPAY ==
--- OUTSIDE RECORDS SUMMARY | 2009-01-18 07:20 | XMS_ITS | Continuity of Care Document ---
Author Organization [facility] Address [address] [place] [address] Phone Care Team Providers Care School Photographer Name Role Phone Gregg SANTOS MD, Leo Unavailable Unavaila ble Procedures Procedure Date Office/outpatient visit,est, mod 2008 Office/outpatient visit,est, mod 2008 Office/outpatient visit,est, mod 2008 Drain/inject major jointor bursa 2008 Depo Medrol Methylprednisolone 40 MG inj X-ray exam of knee, 1 or2 views 009 X-ray exam of knee, 1 or2 views 009 X-ray exam of both knees, standing Medical Record Copy Medical Record Copy Per Page Office/outpatient visit,new, mod 2007 Office/outpatient visit,est, mod 2007 Drain/inject major jointor bursa 2007 Depo Medrol Methylprednisolone 40 MG inj X-ray exam of knee, 1 or2 views 008 X-ray exam of both knees, standing Left Without Being Seen Postop followup visit Knee arthscpy menisc rprmdl Or lat Knee arthroscopy/remove object 08 Office/outpatient visit,new, mod 2007 X-ray exam of knee, 1 or2 views 008 X-ray exam of both knees, standing Advance Directives Directive Yes / No Effective Date File Name No Information Encounters Encounter Description Practice Location Reason(s) For Visit Diagnoses Date Provider Providers Copied on Encounter Office/[place]pa [place]ient visit[place] [facility] [place] [facility], [address], [id number], [place] tel:[phone] [facility] No Information 9 Gregg Bailey. [address] [address], [place], [place], [id number], [place]. tel:[phone] Office/[place]pa [place]ient visit,[facility], [facility] [place] [facility], [address], [id number], [place] tel:[phone] [facility] No Information 9 Gregg Bailey. [address] [address], [place], [place], [id number], [place]. tel:[phone] Office/outpa tient visit,[facility], [address], [id number], [place] tel:[phone] [facility] No Information 9 Gregg Bailey. [address], [id number], [place]. tel:[phone] [facility], [address], [id number], [place] tel:[phone] [facility] No Information 9 Administrative Provider. [address], [id number], [place]. tel:[phone] [facility], [address], [id number], [place] tel:[phone] [facility] No Information 8 Gregg Bailey. [address] [facility], [address], [id number], [place]. tel:[phone] [facility], [address], [id number], tel:[phone] [facility] No Information 8 Gregg Bailey. [address] [facility], [address], [id number], [place]. tel:[phone] [facility], [address], [id number], [place] tel:[phone] [facility] No Information 8 Gregg Bailey. [address] [facility], [address], [id number], [place]. tel:[phone] [facility], [address], [id number], [place] tel:[phone] [facility] No Information 8 Gregg Bailey. [address], [id number], [place]. tel:[phone] Office/outpa tient visit,[facility], [address], [id number], [place] tel:[phone] [facility] No Information 8 Gregg Bailey. [address] [facility], [address], [id number], [place]. tel:[phone] Family History Family Member Type Diagnosis Age At Onset No Information Payers Payer name Insurance type Covered constitution party ID Authoriza tion(s) No Information Social History Type Description Quantity Date Captured Comments Sex Male Smoking Status No Information Chief Complaint And Reason For Visit No Information Reason For Referral Reason For Referral No Information History Of Present Illness Encounter Date Complaint History Of Prese nt Illness No Information Functional Status Date Functional Assessmen t No Information Instructions Date Instruction Additional Infor mation No Information Assessments Type Assessment Date No Information Patient Care Teams Name Effective Dates (start - stop) Status Members No Information
--- OUTSIDE RECORDS SUMMARY | 2024-04-26 05:15 | XMS_ITS | Continuity of Care Document ---
Author Organization [facility] Address [address] [place] [address] Phone Care Team Providers Care Lead Dental Assistant Name Role Phone Chelsey Marcos OD Unavailable Unavailable Allergies, Adverse Reactions, Alerts Substance Reaction Status Criticality No Known Allergies Active No Inform ation Medications Medication Instructions Dosage Effective Dates (start - stop) Status Comments Aspirin 81 mg Tab, Delayed Release take 1 tablet (81MG) by ORAL route every day 81 MG - Active Nitromist 0.4 mg/Dose Stanton, Aerosol place 1 spray (0.4MG) by Translingual route onto or under the tongue at the first sign of an attack; no more than3 sprays are recommended within a 15 minute period. as needed 0.4 MG - Active Tylenol 325 mg capsule - Active bumetanide 2 mg tablet take 1 tablet by oral route every day 2 MG - Active clopidogrel 75 mg tablet take 1 tablet by oral route every day 75 MG - Active ergocalciferol (vitamin D2) 1,250 mcg (50,000 unit) capsule take 1 capsule by oral route every week 1 capsule - Active ferrous sulfate 324 mg (65 mg iron) tablet,delayed release - Active quetiapine 50 mg tablet take 1 tablet by oral route 2 times every day 50 MG - Active Guaifenesin AC 10 mg-100 mg/5 mL oral liquid take 10 milliliter by oral route every 4 hours as needed 10.00 milliliter - Active Ozempic 2 mg/dose (8 mg/3 mL) subcutaneous pen injector inject (2MG) by subcutaneous route every week on the same day of each week 2 MG - Active pramipexole 1 mg tablet take 1 tablet by oral route 3 times every day 1 MG - Active gabapentin 600 mg tablet take 1 tablet by oral route 3 times every day 600 MG - Active fluoxetine 20 mg capsule take 1 capsule by oral route every day in the morning 20 MG - Active Vicodin 5 mg-300 mg tablet take 1 tablet by oral route every 4 - 6 hours as needed for pain - Active Fish Oil 1,000 mg (120 mg-180 mg) capsule take 1 by oral route every day 1 - Active metoprolol succinate ER 50 mg tablet,extended release 24 hr take 1 tablet by oral route every day 50 MG - Active Lantus 100 unit/mL Sub-Q inject by subcutaneous route as per insulin protocol 0.00 - Active Janumet 50 mg-1,000 mg Tab take 1 tablet by ORAL route 2 times every day with meals No Longer Active Effient 10 mg Tab take 1 tablet by oral route every day 10 MG No Longer Active Baclofen 20 mg Tab take 1 tablet by oral route 4 times every day 20 MG No Longer Active isosorbide mononitrate ER 30 mg tablet,extended release 24 hr take 1 tablet by oral route every day in the morning 30 MG No Longer Active meclizine 25 mg tablet take 1 tablet by oral route 3 times every day as needed 25 MG No Longer Active losartan 50 mg tablet take 1 tablet by oral route every day 50 MG No Longer Active simvastatin 20 mg tablet take 1 tablet by oral route every day in the evening 20 MG No Longer Active trazodone 100 mg tablet take 1 tablet by oral route 2 times every day after meals 100 MG No Longer Active Humalog 100 unit/mL subcutaneous solution inject by subcutaneous route per prescriber's instructions. Insulin dosing requires individualization . 0. No Longer Active Victoza 3-Joseph 0.6 mg/0.1 mL (18 mg/3 mL) subcutaneous pen injector inject 0.2 milliliter by subcutaneous route every day No Longer Active Zetia 10 mg tablet take 1 tablet by oral route every day 10 MG - No Longer Active Vitamin D2 50,000 unit capsule take 1 capsule by oral route every week - No Longer Active Procedures Procedure Date Refraction Eye Exam & Treatment Fundus Photography W/ Report No Charge GDX Retina Eye Exam & Treatment Fundus Photography W/ Report Eye Exam & Treatment Refraction Fundus Photography W/ Report Eye Exam & Treatment No Charge Refraction No Charge Optomap Fundus Photos 016 No Charge Orbscan No Charge IOL Master Office/outpatient Visit, Est No Charge Refraction No Charge Optomap Fundus Photos 015 No Charge Orbscan IOLMaster Eye Exam & Treatment IOLMaster Eye Exam & Treatment Fundus Photography W/ Report Eye Exam & Treatment Fundus Photography W/ Report Certified EMR Eye Exam & Treatment Fundus Photography W/ Report Special Reports Or Forms Office/outpatient Visit, Est Fundus Photography W/ Report Office Consultation Refraction Fundus Photography W/ Report Advance Directives Directive Yes / No Effective Date File Name Other Directive No N/A N/A WARNING:The information contained in this section is historical and is provided for information only and does not constitute a legal document or any assurance that the information is still accurate. Please verify the information with the kline of the legal document before using it for clinical purposes. Encounters Encounter Description Practice Location Reason(s) For Visit Diagnoses Date Provider Providers Copied on Encounter [facility], [address], [place], [place], [id number], tel:[phone] [place] Professional Complete Exam (chief complaint) Type 2 diabetes mellitus without complication sCombined forms of age-related cataract, bilateral Sep-1 7-202 4 Hemant OD Chelsey. [address] [place] [address] [facility], [address], [place], [place], [id number], . tel:[phone] Polina gayle MD.Referring Provider: Leo Doss MD, [address] [place], [address]. tel:[phone] [facility], [address] [place] [address] [address], [place], [place], [id number], [phone] SEC Michi Blackburn Complete Exam (chief complaint) Type 2 diabetes with mild nonp rtnop with macular edema, biAge-relate d nuclear cataract, bilateral Sep-0 2-202 2 Elsa Mckay. [address] [place] [address] [facility], [address], [place], [place], [address], [place]. tel:[phone] Polina gayle MD.Specialis t: Polina gayle MD, [address], [place], [address]. tel:[phone] ng Provider: Leo Doss MD, [address] [place], [address]. tel:[phone] [facility], [address] [place] [address] [address], [place], [place], [address], tel:[phone] [place] Professional Complete Exam (chief complaint) Type 2 diab with mild nonp rtnop without mclr edema, r eyeAge-relat ed nuclear cataract, bilateral Oct-0 8-201 9 Fisher Mckay. [address] [place] [address] [facility], [address], [place], [place], [address], [place]. tel:[phone] Specialist: Polina gayle MD, [address], [place], [address]. tel:[phone] ist: Polina gayle MD, [address], [place], [address]. tel:[phone] chris Provider: Leo Doss MD, [address] [place], [address]. tel:[phone] [facility], [address] [place] [address] [address], [place], [place], [address], [place] tel:[phone] SEC [place] Professional Complete Exam (chief complaint) Age-related nuclear cataract, bilateralTyp e 2 diabetes mellitus without complication sLong term (current) use of insulin 7 Fisher Mckay. [address] [place] [address] [facility], [address], [place], [place], [address], [place]. tel:[phone] Referring Provider: Leo Doss MD, [address] [place], [address]. tel:[phone] [facility], [address] [place] [address] [address], [place], [place], [address], [place] tel:[phone] [place] Professional No Information - 6 Arrington Pallavi. [address] [place], [address], [place]. tel:[phone] Office/outpat ient Visit, [facility], [address] [place] [address] [address], [place], [place], [address], [place] tel:[phone] SEC [place] Professional 5 Month Cataract Check (chief complaint) No Information 0- 6 Elsa Mckay. [address] [place] [address] [address], [address], [place], [place], [address], [place]. tel:[phone] Specialist: Tali Rodas MD, [address] , [place], [address]. tel:[phone] chris Provider: Leo Doss MD, [address] [place], [address]. tel:[phone] [facility], [address], [place], [place], [address], [place] [phone] SEC [place] A[place] Professional Diabetic eye exam (chief complaint) No Information 5 Fisher Mckay. [address], [address], [place], [place], [address], [place]. tel:[phone] Referring Provider: Leo Doss MD, [address] [place], [address]. tel:[phone] [facility], [address], [place], [place], [address], [place] tel:[phone] SEC Raymon ALEXIS Professional No Information Jul- 5 Luxhan Mendoza. [address] [facility], [address], [place], [place], [address], [place]. tel:[phone] [facility], [address], [place], [place], [address], [place] tel:[phone] SEC Michi Littlejohn No Information 3 Elsa Mckay. [address], [address], [place], [place], [address], [place]. tel:[phone] Referring Provider: Leo Doss MD, [address] [place], [address]. tel:[phone] [facility], [address], [place], [place], [address], [place] [phone] SEC Michi Littlejohn No Information [address] [facility] [employer], [address], [place], [place], [address], [place]. tel:[phone] Referring Provider: Leo Doss MD, [address] [place], [address]. tel:[phone] [facility], [address], [place], [place], [address], [place] tel:[phone] [place] No Information [address], [address], [place], [place], [address], [place]. tel:[phone] Referring Provider: Leo Doss MD, [address] [place], [address]. tel:[phone] [facility], [address], [place], [place], [address], [place] tel:[phone] SEC Michi N [place] No Information 9 Elsa Mckay. [address] [facility], [address], [place], [place], [address], [place]. tel:[phone] Referring Provider: Leo Doss MD, [address] [place], [address]. tel:[phone] Office/outpat ient Visit, [facility], [address], [place], [place], [address], [place] tel:[phone] SEC [place] No Information 9 Lesa Mckay. [address] [facility], [address], [place], [place], [address], [place]. tel:[phone] Referring Provider: Leo Doss MD, [address] [place], [address]. tel:[phone] Office Consultation [facility], [address], [place], [place], [address], [place] tel:[phone] [facility] [place] No Information 7 Fisher Mckay. [address] [facility], [address], [place], [place], [address], [place]. tel:[phone] Referring Provider: Leo Doss MD, [address] [place], [address]. tel:[phone] Family History Family Member Type Diagnosis Age At Onset Father Problem (finding) diabetes albinai leny in first degree relative Father Problem (finding) glaucoma Payers Payer name Insurance type Covered libertarian ID Shivani gonzalez(s) GERBER Medicare Complete CI [id number] Social History Type Description Quantity Date Captured Comments Alcohol Use Details No Caffeine Use Details 3 cups per day Tobacco Use Status Current non-smoker Smoking Status Never smoker Non-Smoking Tobacco Use Details : No Details Available : No Details Available Sex Male Chief Complaint And Reason For Visit From encounter dated '04/26/2024 10:15'. Complete Exam (chief complaint). Description: The 73 year old patient presents for evaluation of Complete DM Exam in the right eye and left eye. Pt is DMII and followed by PCP, last A1C was 8.7. Pts BS is currently 150 with his continuous monitor. Pt states he feels like vision is doing ok, he states he has not noticed a difference or decrease in his vision x2 years. Pt states he can not tell if he will need an updated glasses Rx or not. Pt was in a coma and battling cancer over last 2 years. Due to pts physical state we were unable to obtain any photos or scans for testing at todays visit. Reason For Referral Reason For Referral No Information Plan Of Treatment Date Type Action Status Patient Education Cataracts: Care Instruc chetan completed Patient Education Cataracts: Care Instruc ticaden completed Patient Education Cataracts: Care Instruc tions completed History Of Present Illness Encounter Date Complaint History Of Prese nt Illness Complete Exam The 73 year old patient presents for evaluation of Complete DM Exam in the right eye and left eye. Pt is DMII and followed by PCP, last A1C was 8.7. Pts BS is currently 150 with his continuous monitor. Pt states he feels like vision is doing ok, he states he has not noticed a difference or decrease in his vision x2 years. Pt states he can not tell if he will need an updated glasses Rx or not. Pt was in a coma and battling cancer over last 2 years. Due to pts physical state we were unable to obtain any photos or scans for testing at todays visit. Complete Exam The 71 year old patient presents for evaluation of Complete Exam in the right eye and left eye. Hx of Cataracts OU Pt is IDMM II x 20 yrs and is unsure of A1c, but it has been running high since he was in the hospital. Pt states OU vision is clear and stable at distance and near x 3 yrs. Complete Exam The 68 year old male presents for evaluation of Complete Exam in the right eye and left eye. Hx of CAT OU and Drusen OU. Pt is IDDM II x 17 yrs, followed by Dr. Polina Sheppard (Not in [facility]), pt reports BS was 200 this am and A1C was 7.1 a couple weeks ago. Pt reports he hasn't noticed any changes in VA, OU, since last appt. Pt reports he doesn't use any gtts and no pain or irritation today, OU. Complete Exam The 66 year old male presents for Complete Exam in the right eye and left eye. Hx of Cataracts OU and Mac Drusen OU. Pt is IDDM II with an A1c of 6.4 in 09/26. Pt states no VA, pain, or discomfort changes OU x 1 yr. Pt denies glare or any trouble seeing small print. PT uses no gtts at this time. 5 Month Cataract Check The 65 ye ar old male presents for 5 month re evaluation of Cataracts. Patient has a history of Cataracts OU, and Dm type 2 Without Retinopathy. Patient states his vision is still blurry, hazy, and still bothered by glare. Patient has trouble seeing at distance as well as reading. Patient says he hasn't notice it has got much worse since last visit. Patient states he is ready for surgery at this time. Patient does not use any eye drops. Patient is a type 2 Diabetic has been for 14 years. Patient says his FBS this morning was 137, and his last A1C was 8.0% but had some adjustments made to his meds and thinks it may be back down now. Diabetic eye exam The 64 year ol d male presents for a diabetic eye exam, patient is insulin dependant type 2 diabetic. Patient states his eyes get dry somethimes, he thinks he may need new glasses, due to age. Patient does not use any gtts at this time. Functional Status Date Functional Assessmen t No Information Instructions Date Instruction Additional Infor lucina Impression/Plan Impression/Plan Impression/Plan Age-related nuclear cataract, bilateral - Surgery not indicated now. Related to Age-related nuclear cataract, bilateral Impression/Plan - Ca taract presence discussed and symptoms of progression explained, not visually significant to patient. Pt was instructed to return to the office sooner if vision worsens. Pt needs BAT and BCVA on return prior to dilation. New spec Rx given to pt. Diabetes type II: no background retinopathy, no signs of neovascularization noted. Discussed ocular and systemic benefits of blood sugar control. Letter generated and sent to Dr. Doss Follow up - 1 yr complete exam Impression/Plan - Ca taracts discussed and symptoms of progression and rec returning to clinic sooner if this occurs. Pt needs BAT and BCVA on return prior to dilation. Will see patient back in 6 months or sooner if vision worsens. Will give pt a copy of today's refraction. Diabetes type II: no background retinopathy, no signs of neovascularization noted. Discussed ocular and systemic benefits of blood sugar control. Letter generated and sent to Dr. Doss and Dr. Disla Type 2 diabetes albina itus without complications - Letter sent to PCP/Specialist Related to Type 2 diabetes mellitus without complications Follow up - 6 months complete ca t eval Follow up - sched CE OD 1st Impression/Plan - Ca taract presence and progression discussed. Discussed all risks, benefits, procedures and recovery. Pt understands surgery is elective and can proceed when desired. Patient understands changing glasses will not improve vision. Patient desires to have surgery, recommend phacoemulsification with intraocular lens.IOL options discussed and pt is aware standard monofocal IOL will still require specs at near and for any remaining correction. Lifestyle IOL's discussed and pt is aware these are an out of pocket expense not covered by insurance. Explained the accuracy and effectiveness of any lens implant cannot be guaranteed and the need for glasses for some visual activities after cataract surgery is likely for most patients even when considering a lifestyle IOL. TORIC discussed for OS. Diabetes type II: no background retinopathy, no signs of neovascularization noted. Discussed ocular and systemic benefits of blood sugar control. Letter generated and sent to Dr. Doss. Emerita should contact pt if TORIC IOL is an option. Combined forms of ag e-related cataract, bilateral - Surgery advised; risks, benefits, alternatives discussed. Related to Combined forms of age-related cataract, bilateral General plan -Diabet es Mellitus Type 2, Uncomplicated -INCIPIENT CATARACT -DRUSEN (DEGENERATIVE) - OU: Discussed diagnosis in detail with patient. No treatment is required at this time. Advised patient of condition. Will continue to observe condition and or symptoms. Call if VA worsens. Emphasized blood sugar control. Discussed risks of progression. Educational materials provided:Diabetes, Cataract and AMD. Vitamins recommended.- pt currently taking and rec continuing Related to See impression: general plan - 1 yr complete exam Related to See impression: general plan Drusen, OU - vision not affected - will continue to monitor - Discussed diagnosis with patient. Reviewed treatment options with patient. No treatment is required at present time. Will continue to monitor condition. Taking vitamins has shown to improve vision related to macular degeneration. Related to Drusen Diabetes Type II, - Will continue to monitor condition. Related to Diabetes Type II - Dr. Doss-dict Related to D iabetes Type II - 1 year comp Related to Zahira n INCIPIENT CATARACT, OU - vision not affected - will continue to monitor - Discussed diagnosis in detail with patient. No treatment is required at this time. Will continue to observe condition and or symptoms. Related to INCIPIENT CATARACT Assessments Type Assessment Date assessment Type 2 diabetes mellitus without complications assessment Combined forms of age-related ca taract, bilateral Patient Care Teams Name Effective Dates (start - stop) Status Members No Information
--- OUTSIDE RECORDS SUMMARY | 2025-04-12 09:03 | XMS_ITS | Clinical Summary ---
Author Organization [facility] Address [address], [place] [address] Phone Care Team Providers Care Spinner Tender Name Role Phone Leo Doss MD Primary Care Provider [phone] Allergies No known active allergies Medications clopidogrel (PLAVIX) 75 MG tablet 1 Active lisinopril (PRINIVIL) 10 MG tablet 1 Active ferrous sulfate 325 (65 Fe) MG tablet Take by mouth Active cholecalciferol (D3-50) 1.25 MG (16881 UT) capsule Take 100,000 Units by mouth once a week Active Janumet 50-1000 MG per tablet Take 1 tablet by mouth 2 (two) times a day 1 Active gabapentin (NEURONTIN) 600 MG tablet Take 1,200 mg by mouth daily Active QUEtiapine (SEROquel) 50 MG tablet Take 50 mg by mouth every night 1 Active [place]-3 Fatty Acids (Super [place]-3) 1000 MG capsule Take 1,200 mg by mouth Active FLUoxetine (PROzac) 20 MG capsule Take 20 mg by mouth 1 (one) time each day 1 Active atorvastatin (LIPITOR) 80 MG tablet Take 80 mg by mouth 1 (one) time each day 1 Active tiZANidine (ZANAFLEX) 4 MG tablet TAKE 1 TABLET BY MOUTH EVERY AT BEDTIME NEEDED 1 Active pramipexole (MIRAPEX) 1 MG tablet Take 1 mg by mouth every night 1 Active Victoza 18 MG/3ML injection ADMINISTER 1.8 MG UNDER THE SKIN DAILY 1 Active insulin lispro (HumaLOG KWIKPEN) 200 UNIT/ML solution pen-injector injection INJ 8 UNITS WITH BREAKFAST AND 8 UNITS WITH SUPPER D 8 Active Insulin Pen Needle (BD Pen Needle Ailin U/F) 32G X 4 MM misc USE TID AND PRN UTD 0 Active Lantus SoloStar 100 UNIT/ML injection INJECT 40 UNITS SUBCUTANEOUS EVERY MORNING 1 Active acetaminophen (TYLENOL) 325 MG tablet Take 650 mg by mouth Active OneTouch Ultra test strip TEST BLOOD SUGAR THREE TIMES DAILY 1 Active HYDROcodone-josse taminophen (NORCO) 5-325 MG per tablet Take 1 tablet by mouth 0 Active nitroglycerin (NITROSTAT) 0.[address] 0.4 mg under the tongue Active ergocalciferol (VITAMIN D2) 1.25 MG (03635 UT) capsule TAKE 1 CAPSULE BY MOUTH EVERY WEEK ON Wednesdays 1 Active metoprolol tartrate (LOPRESSOR) 25 MG tablet Take 1 tablet (25 mg total) by mouth 2 (two) times a day 60 tablet 11 1 Active bumetanide (BUMEX) 2 MG tablet 2 Active Diclofenac Sodium 1 % gel APPLY 4 GRAMS TOPICALLY TO BOTH KNEES FOUR TIMES DAILY 2 Active OneTouch Delica Lancets 30G misc USE TO TEST BLOOD SUGARS 4 TIMES DAILY 2 Active lidocaine-prilo brittany (EMLA) 2.5-2.5 % cream APPLY TO PORT SITE 30 TO 60 MINUTES PRIOR TO USE 2 Active traZODone (DESYREL) 100 MG tablet Take 100 mg by mouth every night 2 Active pantoprazole (PROTONIX) 40 MG EC tablet Take 40 mg by mouth 1 (one) time each day 2 Active Active Problems Problem Noted Date Diagnosed Date Body mass index (BMI) 60.0-69.9, adult 2 Chronic kidney disease stage 3B 07/11/2021 History of aortic valve replacement 10/25/2020 Chronic obstructive pulmonary disease 07/19/2020 Type 2 diabetes mellitus wit h diabetic chronic kidney disease 07/19/2020 Acute hypoxemic respiratory failure 04/04/2020 Myocardial infarction 04/02/2020 Overview (01/26/2021): Added automatically from request for surgery [id number] Coronary atherosclerosis 08/11/2017 Immunizations Immunization Administration Dates Next Due Influenza TIV (IM) 06/10/2021 Pneumococcal Polysaccharide 04/10/2017 Social History Tobacco Use Types Packs/Day Years Used Date Smoking Tobacco: Never Smokeless Tobacco: Never Alcohol Use Standard Drinks/Week Comments Not Currently 0 (1 standard drink = 0.6 oz pur e alcohol) Sex and Gender Information Value Date Recorded Sex Assigned at Not on file Legal Sex Male 9:59 AM MDT Gender Identity Not on file Sexual Orientation [...] 10:20 AM CDT Height 175.3 cm (5' 9) 01/16/2022 10:20 AM CDT Body Mass Index 57.89 01/16/2022 10:20 AM CDT Plan of Treatment Health Maintenance Due Date Last Done Comments Pneumococcal PPSV23/PCV13 65 + Years / Low and Medium Risk (2 of 3 - PCV) 04/10/2018 04/10/2017 Influenza Vaccine (#1) 2025 06/10/2021 Insurance [facility] MEDICARE [place]VANTAGE [place]ICAID - [place] Care Teams Spinner Tender Relationship Specialty Start Date End Date Leo Doss MD [address] [place] [address] PCP - General Internal Medicine 01/21/21
--- OUTSIDE RECORDS SUMMARY | 2025-04-12 09:03 | XMS_ITS | Encounter Summary ---
Author Organization [facility] Address [address] [place] [address] Care Team Providers Care Violin Restorer Name Role Phone Leo Doss MD Primary Care Provider [phone] Encounter Details Date Type Department Care Team ([facility] Contact Info) Description 08/25/2018 Chart Note [facility] Radiation Therapy [address] [place] [address] [place] [address] [place] [address] Social History Tobacco Use Types [...] Encounters Date Type Department Care Team (Late Contact Info) Description 08/17/2025 10:00 AM MARKET RELATIONSHIP MANAGER Office [facility] Oncology and Hematology - [address] [facility] [address] [place] [address] Monty Oliveira MD [address] [facility] [address] [place] [address] documented as of this encounter Visit Diagnoses Not on filedocumented in this encounter Care Teams Violin Restorer Relationship Specialty Start Date End Date Leo Doss MD PCP - General Family Practice 03/04/18 documented as of this encounter
--- OUTSIDE RECORDS SUMMARY | 2025-04-12 09:03 | XMS_ITS | Clinical Summary ---
Author Organization [facility] [address] Address [address] [place] [address] Care Team Providers Care Card Maker Name Role Phone Leo Doss MD Unavailable [phone] Leo Doss MD Primary Care Provider [phone] Sravan Higgins MD Unavailable Morgan Ballard MD Unavailable Allergies No known active allergies Medications baclofen (LIORESAL) 10 mg tablet Take 1 tablet (10 mg total) by mouth nightly 30 tablet 0 Active FLUoxetine (PROzac) 20 mg capsule Take 1 capsule (20 mg total) by mouth daily 30 capsule 0 Active insulin lispro (HumaLOG, ADMELOG) 100 unit/mL insulin [...] daily as needed for constipation 0 Active gabapentin (NEURONTIN) 300 mg capsule Take 1 capsule (300 mg total) by mouth nightly 30 capsule 11 0 Active insulin glargine (LANTUS) 100 unit/mL injection Inject 40 Units under the skin every morning 10 mL 0 Active aspirin 81 mg enteric coated tablet Take [...] triamcinolone (KENALOG) 0.1 % cream 4 Active Embrace Pen Needle 32 gauge x needle USE WTH INSULIN THREE TIMES DAILY 5 Active Active Problems Problem Noted Date Diagnosed [...] (04/03/2020): Added automatically from request for surgery [id number] Nonrheumatic aortic valve stenosis 08/23/2019 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 Coronary artery disease invo lving [place] coronary artery of [place] heart without angina pectoris 08/11/2017 History of coronary artery stent placement 08/11 Morbid obesity with body mass index of 50.0-59.9 in adult 08/11/2017 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 Diabetes mellitus 07/17/2015 Encounters Date Type Department Care Team Description 03/08/2025 11:15 AM CDT Office Visit [facility] Medicine Orthopaedic Surgery [address] [facility] [address] [place] [address] Nu Lopez PA Primary osteoarthritis of both knees (Primary Dx) from Last 3 Months Immunizations Immunization Administration [...] Comments Hypertension Hypertension Type 2 diabetes mellitus Obesity Aortic stenosis Sleep apnea Non Hodgkin's [...] on file Legal Sex Male 5:59 PM APPLICATION TECHNICAL DESIGNER Gender Identity Not on file Sexual Orientation Not on file Obstetrics History Last Filed Vital Signs Vital Sign Reading Time Taken Comments Blood Pressure 138/68 10/06/2024 9:36 AM APPLICATION TECHNICAL DESIGNER Pulse 81 10/06/2024 9:36 AM APPLICATION TECHNICAL DESIGNER Temperature 36.9 C (98.4 F) 09/22/2020 8:10 AM APPLICATION TECHNICAL DESIGNER Respiratory Rate 16 09/22/2020 8:10 AM APPLICATION TECHNICAL DESIGNER Oxygen Saturation 95% 10/06/2024 9:3 6 AM APPLICATION TECHNICAL DESIGNER Inhaled Oxygen Concentration - - Weight 181.4 kg (400 lb) 10/06/2024 9:3 6 AM APPLICATION TECHNICAL DESIGNER per pt- wheelchair Height 172.7 cm (5' 8) 10/06/2024 9:36 AM APPLICATION TECHNICAL DESIGNER Body Mass Index 60.82 10/06/2024 9:36 AM APPLICATION TECHNICAL DESIGNER Plan of Treatment Health Maintenance Due Date [...] 09/22/2021 09/22/2020, 09/10, 09/20/2020, Additional history exists Lipid Panel 10/01/2024 10/01/2023, 07/10, 12/17/2021, Additional history exists Influenza Vaccine (#1) 2025 , 06/01/2019, 04/28/2018, Additional history exists Medical Devices Implanted Type Area Agents' Records Clerk Device Identifier Shelf Expiration Date Model / Serial / Lot [employer] [id number] Gus 3 29mm Transcatheter Valve Aortic Bovine Sterile - [id number] - [id number] Implanted:Qty: 1 on 09/20/2020 by Morgan Ballard MD at [facility] Prosthetic Valve [employer] 12/25/2021 [id number] / [id number] / [id number] [id number] Device Closure Angio-Seal Vip Bondek-Plus Polyglyd L70 Cm Od6 Fr [id number] In Vascular - [id number] Implanted:Qty: 1 on 04/06/2020 by Morgan Ballard MD at [facility] [employer] [id number] / / Procedures Procedure Name Priority Date/Time Associated Diagnosis Comments DC ARTHROCENTESIS ASPIR&/INJ MAJOR JT/BURSA W/O US Routine 03/08/2025 11:15 AM CDT Primary osteoarthritis of both knees POCT LIPID PANEL Routine 10/01/2023 2:49 PM APPLICATION TECHNICAL DESIGNER Lipid screening EGFR Routine 09/22/2020 5:41 AM APPLICATION TECHNICAL DESIGNER HEMOGLOBIN A1C Routine 04/04/2020 2:22 AM CDT from Last 3 Months or Most Recently Relevant to Health Maintenance Results * DC ARTHROCENTESIS ASPIR&/INJ MAJOR JT/BURSA W/O US (03/08/2025 11:15 AM CDT) Narrative Nu Lopez PA - 03/08/2025 11:15 AM CDT Nu Lopez PA 03/08/2025 11:21 AM Large Joint Injection: bilateral knee Performed by: Nu Lopez PA Authorized by: Nu Lopez PA Large Joint Injection/Aspiration: Consent Given by: Patient Site marked: the procedure site was marked Verbal consent obtained: Yes Supporting Documentation: Indications: Pain Procedure Details: Location: Knee Site: Bilateral knee Prep: patient was prepped and draped in usual sterile fashion Needle Size: 22 G Approach: Superior lateral Medications Right Large Joint Injection: 80 mg triamcinolone 40 mg/mL; 4 mL BUPivacaine HCl 0.25 % (2.5 mg/mL) Medications Left Large Joint Injection: 80 mg triamcinolone 40 mg/mL; 4 mL BUPivacaine HCl 0.25 % (2.5 mg/mL) Patient tolerance: Patient tolerated the procedure well with no immediate complications Nu RAWLS IN CLINIC/BEDSIDE DAGO BRASHER Final Result * POCT lipid panel (10/01/2023 2:49 PM APPLICATION TECHNICAL DESIGNER) Cholesterol, POC 133 mg/dL HDL, POC 40 mg/dL Triglycerides, POC 172 mg/dL LDL Cholesterol POC 59 mg/dL Chol/HDL Ratio, POC 1.5 Non-HDL Cholesterol, POC 94 mg/dL Cholesterol Total, POC 133 mg/dL Capillary blood 10/01/2023 2 :49 PM APPLICATION TECHNICAL DESIGNER Leo Ribeiro MD POINT OF CARE TEST ORDER ZAIN Final Result * eGFR (09/22/2020 5:41 AM APPLICATION TECHNICAL DESIGNER) eGFR 46 mL/min/1.7 3 m2 MANDI BURNS [...] 2020 Blood specimen (specimen) 09/22/2020 5:41 AM APPLICATION TECHNICAL DESIGNER 09/22/2020 6:16 AM APPLICATION TECHNICAL DESIGNER us Morgan Ballard MD LAB BLOOD ORDERABLES Final Resul t Performing Organization Address [facility] Co de Phone Number MANDI BURNS [address] [address] [facility] [place] [address] * (ABNORMAL) Hemoglobin A1c (04/04/2020 2:22 AM CDT) Hgb A1C 6.8(H) 4.0 - 5.6 % MANDI BURNS Estimated Average Glucose 148 mg/dL MANDI BURNS Comment: The ADA recommends reporting an estimated Average Glucose (eAG) with all Hemoglobin A1c results using the equation derived from a study of 507 normal and diabetic adults. Minority populations were underrepresented and children were not included. (Diabetes Care 31:5655-6582, 2008). The eAG is not equivalent to a fasting glucose. 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 K.pneumonia tracheal aspiraate 04/07/20 04/07/2020 Insurance [facility] MEDICARE ADVANTAGE [facility] Address: [address] [address] [place] [address] [facility] Address: [address] [address] [place] [address] [facility] Address: [address] [address] [place] [address] [address] [id number] Advance Directives For more information, please contact: [phone] * Full Code (Latest Code Status on File) Date Activated Date Inactivated Comments 09/20/2020 12:36 PM 09/22/2020 5:46 PM * Full Code Date Activated Date Inactivated Comments 04/02/2020 11:40 PM 04/22/2020 4:10 AM * Full Code Date Activated Date Inactivated Comments 04/02/2020 11:17 PM 04/02/2020 11:40 PM Care Teams Card Maker Relationship Specialty Start Date End Date Leo Doss MD PCP - General Family Medicine 05/06/18 Leo Doss MD 01/15/18 Sravan Higgins MD Consulting Physician Vascular Surgery 04/21/20 Morgan Ballard MD [address] [place] [address] Consulting Physician Cardiology 04/21/20
--- OUTSIDE RECORDS SUMMARY | 2025-04-12 09:03 | XMS_ITS | Encounter Summary ---
Author Organization [facility] Address [address] [place] [address] Care Team Providers Care Zinc Miner Blasting Name Role Phone Leo Doss MD Primary Care Provider [phone] Encounter Details Date Type Department Care Team (Late st Contact Info) Description 04/11/2025 External Device Data STL ABSTRACTION Provider, Abstract NO ADDRESS ON FILE Social History Tobacco Use Types Packs/Day Years [...] (Late Contact Info) Description 08/17/2025 10:00 AM POLICY DIRECTOR Office Visit [facility] Oncology and Hematology - Fausto [address] [place] [address] [facility] [address] [place] [address] Monty Oliveira MD [address] [facility] [address] [place] [address] documented as of this encounter Visit Diagnoses Not on filedocumented in this encounter Care Teams Zinc Miner Blasting Relationship Specialty Start Date End Date Leo Doss MD PCP - General Family Practice 03/04/18 documented as of this encounter
--- OUTSIDE RECORDS SUMMARY | 2025-04-12 09:03 | XMS_ITS ---
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
--- OUTSIDE RECORDS SUMMARY | 2025-04-12 09:03 | XMS_ITS | Encounter Summary ---
Author Organization [facility] Address [address] [facility] [place] [address] Care Team Providers Care Corn Sheller Name Role Phone Unavailable Primary Care Provider Unavailabl e Encounter Details Date Type Department Care Team (Late st Contact Info) Description 02/08/2018 Lab Requisition [facility] Care Pathology Lab [address] [place] [address] Neal Flores MD [address] [address] Social History Tobacco Use Types Packs/Day Years Used Date Smoking Tobacco: Never Assessed Sex and Gender Information Value Date Recorded Sex Assigned at Not on file Legal Sex Male 1:38 PM CDT Gender Identity Not on file Sexual Orientation Not on file documented as of this encounter Plan of Treatment Not on file documented as of this encounter Procedures Procedure Name Priority Date/Time Associated Diagnosis Comments PATHOLOGY TISSUE Routine 02/05/2018 10:0 4 AM CDT documented in this encounter Results * PATHOLOGY TISSUE (02/05/2018 10:04 AM CDT) Case Report Surgical Pathology Report Case: [id number] Authorizing Provider: Neal Flores MD Collected: 02/05/2018 10:04 AM Pathologist: Keerthi Alston MD Received: 02/08/2018 04:28 PM Specimen: Groin Lymph Node, Lymph node 02/09/2018 5:04 PM CDT [facility] Final Diagnosis Right inguinal mass, needle core biopsy: - Follicular lymphoma. - See description. 02/09/2018 5:04 PM CDT [facility] at 1704 CDT Microscopic Description and Comment Review of the right inguinal mass needle core biopsy specimen demonstrates mostly small to intermediate-sized lymphocytes arranged in a vaguely nodular architecture. The majority of cells are centrocytes with occasional admixed centroblasts. The cells appear to be infiltrating through fibrous tissue. A deeper H+E stained recut prepared at the [facility] Department of Pathology confirms these findings. Immunohistochemistry is performed at the [facility] Department of Pathology to further [...] inguinal mass specimen shows involvement by a [id number] B-cell lymphoma that is most consistent with follicular lymphoma. Grading is not recommended to be performed on needle core biopsies, but rather, should be conducted on excisional biopsy samples. Correlation with clinical findings and relevant cytogenetic/molecular studies is required. XUAN/LORI 02/09/2018 5:04 PM [facility] PATH[facility] Clinical History 67 yo man with a 5.7 x 10 cm right inguinal mass. 02/09/2018 5:04 PM [facility] Materials Received Received are 2 slides and 1 block labeled as Pascual Kowalski and A [id number] along with a copy of the outside pathology report. [place] [address]. All materials are returned to the referring institution, along with a copy of our final report. 02/09/2018 5:04 PM [facility] Disclaimer The performance characteristics of all immunohistochemical and indirect immunofluorescence stains (if any) cited in this report were determined by the Histopathology Laboratory of [facility]. Some of these tests were developed by [...] the attending (teaching) pathologist. 02/09/2018 5:04 PM CDT [facility] Synoptic Report NON-HODGKIN LYMPHOMA/LYMPHOID NEOPLASMS: [...] CD10, and BCL-2. 02/09/2018 5:04 PM CDT [facility] Embedded Images 02/09/2018 5:04 PM T [facility] PATHOLOGY LAB Pathology/Cytolo gy LYMPH NODE SPECIMEN / Unknown 02/05/2018 10:04 AM CDT 02/08/2018 4:28 PM CDT Neal Flores MD LAB - PATHOLOGY/CYTOLOGY ORDER ZAIN Final Result [facility] PATHOLOGY LAB [address] [place], [place] [address] [place] [address] documented in this encounter Visit Diagnoses Not on filedocumented in this encounter
--- OUTSIDE RECORDS SUMMARY | 2025-04-12 09:03 | XMS_ITS | Encounter Summary ---
Author Organization [facility] Address [address] [place] [address] Care Team Providers Care Order Dispatcher Chief Name Role Phone Leo Doss MD Unavailable [phone] Leo Doss MD Primary Care Provider [phone] Sravan Higgins MD Unavailable [phone] Morgan Ballard MD Unavailable Encounter Details Date [...] on file Legal Sex Male 5:59 PM CASE REVIEWER Gender Identity Not on file Sexual Orientation [...] documented as of this encounter Care Teams Order Dispatcher Chief Relationship Specialty Start Date End Date Leo Doss MD PCP - General Family Medicine 05/06/18 Leo Doss MD 01/15/18 Sravan Higgins MD Consulting Physician Vascular Surgery 04/21/20 Morgan Ballard MD [address] [place] [address] Consulting Physician Cardiology 04/21/20 documented as of this encounter
--- OUTSIDE RECORDS SUMMARY | 2025-04-12 09:03 | XMS_ITS | Encounter Summary ---
Author Organization [facility] Address [address] [facility] [place] [address] Care Team Providers Care Aircraft Systems Technician Name Role Phone Unavailable Primary Care Provider Unavailabl e Encounter Details Date Type Department Care Team (Late st Contact Info) Description 02/05/2018 Lab Requisition [facility] Care Pathology Lab [address] [place] [address] Neal Flores MD [address] [address] Soft tissue disorder Social History [...] AM CDT) Case Report Flow Cytometry Case: [id number] Authorizing Provider: Neal Flores MD Collected: 02/05/2018 10:04 AM Pathologist: Keerthi Alston MD Received: 02/05/2018 01:44 PM Specimen: Soft Tissue Mass, RIGHT INGUINAL MASS 8 4:58 PM CDT [facility] Final Diagnosis Inguinal soft tissue mass, Right , Flow cytometric immunophenotypic analysis: - CD5-negative, NL32-xwaqwqnm mature B-cell lymphoma. - See interpretation. 8 4:58 PM CDT [facility] at 1658 CDT Flow Cytometry Interpretation The right inguinal mass [...] the flow cytometry specimen is reviewed for air quality instrument specialist purposes. Overall, the right inguinal mass specimen shows evidence of involvement by a CD5-negative, [id number] mature B-cell lymphoma. Correlation with clinical findings and the concurrent tissue biopsy ([facility]; [id number]) is required for further classification. KR/CHICKEN CLEANER/vp clinical research 8 4:58 PM [facility] Flow Cytometry Results Differential Result Comment Flow Cell Count /uL 8100 Total Viability % 78.0 Lymphocytes % 88 Dim CD45 Region % 1 Monocytes % 4 Granulocytes % 0 8 4:58 PM [facility] Reason for test Soft tissue disorder 729.90 8 4:58 PM [facility] Client Specimen ID # [id number] 8 4:58 PM [facility] Number of markers 16 were performed. A Flow CD3 A Flow CD10 A Flow CD20 A Flow CD23 A Flow CD2 A Flow CD4 A Flow CD1a A Flow CD5 A Flow CD19 A Flow CD34 A Flow CD45 A Flow CD7 A Flow CD8 A Flow CD30 A Canones+CD19+ A Lambda+CD19+ 8 4:58 PM [facility] Disclaimer Test performed at [facility], [address] [place] [address], [address]. *The established laboratory minimum viability is 70%. [...] complexity clinical testing. 8 4:58 PM CDT [facility] PATH[facility] Embedded Images 8 4:58 PM CDT [facility] Pathology/Cytolo gy SOFT TISSUE MASS / Unknown 02/05/2018 10:04 AM CDT 02/05/2018 1:44 PM CDT Neal Flores MD LAB - PATHOLOGY/CYTOLOGY ORDER ZAIN Final Result [facility] PATH[facility] [address] [phone] documented in this encounter Visit Diagnoses Diagnosis Soft tissue disorder Disorders of soft tissue, unspecified documented in this encounter
--- OUTSIDE RECORDS SUMMARY | 2025-04-12 09:03 | XMS_ITS | Clinical Summary ---
Author Organization [facility] Address [address] [place] [address] Care Team Providers Care Gem Setter Name Role Phone Unavailable Primary Care Provider Unavailabl e Source Comments [facility],non-owned Affiliates and Associated Physician Practices is amultiple site organization consisting of ambulatory clinics and hospital sitesin [place], [place], [place] and [place]. This disclosure is being madepursuant to the Care Everywhere program and may not contain all information available regarding this patient. Last updated 18.[facility] Social History Tobacco Use Types Packs/Day Years [...] VACCINE ( - 2023-2 5 season) 2024 DEPRESSION SCREENING 08/10/2024 INFLUENZA VACCINE (#1) 2025 Respiratory Syncytial Virus (RSV) Vaccine Pt: or [...] to complete this topic MENINGOCOCCAL (Group B) VACC INE SHARED DECISION-MAKING Aged Out No longer eligibl e based on patient's age to complete this topic MENINGOCOCCAL GROUPS A/C/Y/W VACCINE Aged Out No longer eligible b ased on patient's age to complete this topic Insurance [facility] MANAGED MEDICARE ADV
--- OUTSIDE RECORDS SUMMARY | 2025-04-12 09:03 | XMS_ITS | Clinical Summary ---
Author Organization [facility] Address [address] [place] [address] Care Team Providers Care Mortarman Name Role Phone Leo Doss MD Primary Care Provider [phone] Allergies No known active allergies Medications aspirin [...] mg Extended Release 24 hour tablet 11 Active TRINI PEN NEEDLE 32 gauge x [...] severe 07/19/2020 CAD (coronary atherosclerotic disease) 0 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 Resolved Problems Problem Noted Date Diagnosed Date Resolved Date COPD (chronic obstructive pulmonary disease) 0 12/01/2024 Diabetes mellitus 07/19/2020 12/01/2024 Body mass index (BMI) 50.0-59.9, adult 09/19/2019 12/01/2024 Type 2 diabetes mellitus wit hout complication, without long-term current use of insulin 09/19/2019 12/01/2024 Encounters Date Type Department Care Team Description 04/11/2025 External Device Data STL ABSTRACTION Provider, Abstract 03/29/2025 External Device Data STL ABSTRACTION Provider, Abstract 03/28/2025 External Device Data STL ABSTRACTION Provider, Abstract 03/15/2025 External Device Data STL ABSTRACTION Provider, Abstract 02/22/2025 External Device Data STL ABSTRACTION Provider, Abstract 02/21/2025 External Device Data STL ABSTRACTION Provider, Abstract 01/24/2025 External Device Data STL ABSTRACTION Provider, Abstract [...] Sign Reading Time Taken Comments Blood Pressure 129/63 12/01/2024 8:38 AM CDT Pulse 90 12/01/2024 8:38 AM CDT Temperature 36.4 C (97.5 F) 12/01/2024 8:38 AM CDT Respiratory Rate 15 12/01/2024 8:38 AM CDT Oxygen Saturation 92% 12/01/2024 8:38 AM CDT Inhaled Oxygen Concentration - - Weight 181.4 kg (400 lb) 12/01/2024 8:38 AM CDT Height 174 cm (5' 8.5) 02/07/2022 8:55 AM CDT Body Mass Index 59.94 02/07/2022 8:55 AM CDT Plan of Treatment Upcoming Encounters Date Type Department Care Team (Late st Contact Info) Description 08/17/2025 10:00 AM HAND ROUTER OPERATOR Office Visit [facility] Oncology and Hematology - Fausto [address] [facility] [address] [place] [address] Monty Oliveira MD [address] [facility] [address] [place] [address] Health Maintenance Due Date Last Done Comments DIABETES ANNUAL FOOT EXAM 1968 DIABETES MICROALBUMIN ANNUAL SCREEN 1968 [...] MONTHS 10/05/2020 04/04/2020, 05/2020 INFLUENZA VACCINE (#1) 2025 , 06/01/2019, 04/28/2018, Additional history exists DIABETES ANNUAL RETINAL EXAM 04/26/2025 04/26/2024 Procedures Procedure Name Priority Date/Time Associated Diagnosis Comments HEMOGLOBIN A1C Routine 09/19/2019 from Last 3 Months or Most Recently Relevant to Health Maintenance Results * HEMOGLOBIN A1C (09/19/2019) Blood us Abstract Provider CHEMISTRY ORDERABLES Edited Re sult - Final [facility] from Last 3 Months or Most Recently Relevant to Health Maintenance Insurance [place] Care Teams Mortarman Relationship Specialty Start Date End Date Leo Doss MD PCP - General Family Practice 03/04/18
[2025-04-12 13:33] LABS: Hematocrit 44.7 % (42.0-52.0); Hemoglobin 13.1 g/dL (14.0-18.0); Mean Corpuscular HGB Conc 29.3 g/dl (32-36); Mean Corpuscular Hemoglobin 27.2 pg (26-34); Mean Corpuscular Volume 92.9 fl (80-100); Platelet Count Result 152 k/mm3 (150-375); Red Blood Count 4.81 M/mm3 (4.6-6.20); White Blood Count 8.8 K/mm3 (4.5-10.0)
[2025-04-12 13:37] LABS: Albumin Level 3.7 g/dL (3.5-5.1); Anion Gap 5 mmol/L (4-12); Blood Urea Nitrogen 51 mg/dL (9-20); Calcium 9.7 mg/dL (8.4-10.2); Carbon Dioxide 32 mmol/L (22-30); Chloride 100 mmol/L (98-107); Estimated Glomerular Filt Rate 32; Glucose 244 mg/dL (65-110); Potassium 4.1 mmol/L (3.4-5.0); Sodium 137 mmol/L (137-145)
[2025-04-12 13:46] LABS: Total Protein Urine Random 10 mg/dL; Ur Ttl Prot Creatinine Ratio 0.10 mg/mg (0-0.20)
[2025-04-12 13:47] LABS: Parathyroid Intact 55.2 pg/mL (14.5-75.2)
== END 2025-04-12 08:39 | disposition home or self-care (01) ==
LOC: ANHGOSHLAB 08:39
PROVIDERS: PCP Family Medicine; Visit Provider Internal Medicine Nephrology
DX: N18.32 Chronic kidney disease, stage 3b (principal); E11.9 Type 2 diabetes mellitus without complications
CPT/HCPCS: 36415; 80069; 82570; 83970; 84156; 85027

== ENCOUNTER 2025-05-14 09:24 | Inpatient (IN) | payer MEDICARE, SELFPAY ==
--- OUTSIDE RECORDS SUMMARY | 2009-01-18 07:20 | XMS_ITS | Continuity of Care Document ---
Author Organization [facility] Address [address] [place] [address] Phone Care Team Providers Care Medical Professionals Name Role Phone Gregg SANTOS MD, Leo [...] Provider Providers Copied on Encounter Office/[place]pa [place]ient visit[place], [facility] [place] [facility], [address], [id number], [place] tel:[phone] [facility] No Information 9 Gregg Bailey. [address] [address], [place], [place], [id number], [place]. tel:[phone] Office/[place]pa [place]ient visit,[facility], [facility] [place] [facility], [address], [id number], [place] tel:[phone] [facility] No Information 9 Gregg Bailey. [address] [address], [place], [place], [id number], [place]. tel:[phone] Office/outpa tient visit,[facility], [address], [id number], [place] tel:[phone] [facility] No Information 9 Gregg Bailey. [address], [id number], [place]. tel:[phone] [facility], [address], [id number], [place] tel:[phone] [facility] No Information 9 Administrative Provider. [address], [id number], [place]. tel:[phone] [facility], [address], [id number], [place] tel:[phone] [facility] No Information 8 Gregg Bialey. [address] [facility], [address], [id number], [place]. tel:[phone] [facility], [address], [id number], tel:[phone] [facility] No Information 8 Gregg Bailey. [address] [facility], [address], [id number], [place]. tel:[phone] [facility], [address], [id number], [place] tel:[phone] [facility] No Information 8 Gregg Bailey. [address] [facility], [address], [id number], [place]. tel:[phone] [facility], [address], [id number], [place] tel:[phone] [facility] No Information 8 Gregg Bailey. [address], [id number], [place]. tel:[phone] Office/outpa tient visit,[facility], [address], [id number], [place] tel:[phone] [facility] No Information 8 Gregg Bailey. [address] [facility], [address], [id number], [place]. tel:[phone] Family History Family Member Type Diagnosis Age At Onset No Information Payers Payer name Insurance type Covered republican ID Authoriza tion(s) No Information Social History [...]
--- OUTSIDE RECORDS SUMMARY | 2024-04-26 05:15 | XMS_ITS | Continuity of Care Document ---
Author Organization [employer] [facility] [employer] [facility] Address [address] [facility] [address] [facility] [address] [place] [address] Phone Care Team Providers Care Hand Spring Former Name Role Phone Chelsey Marcos OD Unavailable Unavailable Allergies, Adverse Reactions, Alerts Substance Reaction Status Criticality No Known Allergies Active No Inform ation Medications Medication Instructions Dosage Effective Dates (start - stop) Status Comments Aspirin 81 mg Tab, Delayed Release take 1 tablet (81MG) by ORAL route every day 81 MG - Active Nitromist 0.4 mg/Dose [place], Aerosol place 1 spray (0.4MG) by Translingual [...] Diagnoses Date Provider Providers Copied on Encounter [facility], [address], [place], [place], [id number], tel:[phone] SEC [place] Professional Complete Exam (chief complaint) Type 2 diabetes mellitus without complication sCombined forms of age-related cataract, bilateral Sep-1 7-202 4 Hemant OD Chelsey. [address] [place] [address] [employer] [facility], [address], [place], [place], [address], . tel:[phone] Polina gayle MD.Referring Provider: Leo Doss MD, [address] [place], [address]. 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 [address] [place] [address] [employer] [facility], [address], [place], [place], [address], [place]. tel:[phone] Polina gayle MD.Specialis t: Polina gayle MD, [address], [place], [address]. tel:[phone] ng Provider: Leo Doss MD, [address] [place], [address]. tel:[phone] [facility], [address] [place] [address] [address], [place], [place], [address], tel:[phone] SEC [place] Professional Complete Exam (chief complaint) Type 2 diab with mild nonp rtnop without mclr edema, r eyeAge-relat ed nuclear cataract, bilateral Oct-0 8-201 9 Elsa Mckay. [address] [place] [address] [employer] [facility], [address], [place], [place], [address], [place]. tel:[phone] Specialist: Polina gayle MD, [address], [place], [address]. tel:[phone] ist: Polina gayle MD, [address], [place], [address]. tel:[phone] chris Provider: Leo Doss MD, [address] [place], [address]. tel:[phone] [facility], [address] [place] [address] [address], [place], [place], [address], [place] tel:[phone] SEC Raymon ALEXIS Professional Complete Exam (chief complaint) Age-related nuclear cataract, bilateralTyp e 2 diabetes mellitus without complication sLong term (current) use of insulin 7 Clopton Mckay. [address] [place] [address] [employer] [facility], [address], [place], [place], [address], [place]. tel:[phone] Referring Provider: Leo Doss MD, [address] [place], [address]. tel:[phone] [facility], [address] [place] [address] [address], [place], [place], [address], [place] tel:[phone] SEC [place] Professional No Information - 6 Arrington Pallavi. [address] [place], [address], [place]. tel:[phone] Office/outpat ient Visit, [facility], [address] [place] [address] [address], [place], [place], [address], [place] tel:[phone] SEC Ray[place] Professional 5 Month Cataract Check (chief complaint) No Information 0- 6 Clopton Mckay. [address] [place] [address] [employer], [address], [place], [place], [address], [place]. tel:[phone] Specialist: Tali Rodas MD, [address] , [place], [address]. tel:[phone] chris Provider: Leo Doss MD, [address] [place], [address]. tel:[phone] [facility], [address], [place], [place], [address], [place] [phone] SEC Raymon ALEXIS Professional Diabetic eye exam (chief complaint) No Information 5 Elsa Mckay. [address], [address], [place], [place], [address], [place]. tel:[phone] Referring Provider: Leo Doss MD, [address] [place], [address]. tel:[phone] [facility], [address], [place], [place], [address], [place] tel:[phone] SEC Raymon ALEXIS Professional No Information Jul- 5 Luxhan Mendoza. [address] [facility], [address], [place], [place], [address], [place]. tel:[phone] [facility], [address], [place], [place], [address], [place] tel:[phone] SEC Michi Littlejohn No Information 3 Elsa Mckay. [address], [address], [place], [place], [address], [place]. tel:[phone] Referring Provider: Leo Doss MD, [address] [place], [address]. tel:[phone] [facility], [address], [place], [place], [address], [place] [phone] SEC Michi Littlejohn No Information 1 Clopton Mckay. [facility] [address], [address], [place], [place], [address], [place]. tel:[phone] Referring Provider: Leo Doss MD, [address] [place], [address]. tel:[phone] [facility] [facility], [address], [place], [place], [address], [place] tel:[phone] SEC Michi N Lindbergh No Information 0 Clopton Mckay. [address], [address], [place], [place], [address], [place]. tel:[phone] Referring Provider: Leo Doss MD, [address] [place], [address]. tel:[phone] [facility], [address], [place], [place], [address], [place] tel:[phone] SEC [place] N Lindbergh No Information 9 Elsa Mckay. [address] [facility], [address], [place], [place], [address], [place]. tel:[phone] Referring Provider: Leo Doss MD, [address] [place], [address]. tel:[phone] Office/outpat ient Visit, [facility], [address], [place], [place], [address], [place] tel:[phone] SEC Michi N Lind[place] No Information 9 Elsa Mckay. [address] [facility], [address], [place], [place], [address], [place]. tel:[phone] Referring Provider: Leo Doss MD, [address] [place], [address]. tel:[phone] Office Consultation [facility], [address], [place], [place], [address], [place] tel:[phone] SEC Michi N Lind[place]h No Information 7 Elsa Mckay. [address] [facility], [address], [place], [place], [address], [place]. tel:[phone] Referring Provider: Leo Doss MD, [address] [place], [address]. tel:[phone] Family History Family Member Type Diagnosis Age At Onset Father Problem (finding) diabetes albinai leny in first degree relative Father Problem (finding) glaucoma Payers Payer name Insurance type Covered democrat ID Shivani gonzalez(s) GERBER Medicare Complete CI [id number] Social History Type Description Quantity Date Captured [...] followed by Dr. Polina Sheppard (Not in [facility]), pt reports BS was 200 this am [...] Follow up - 1 yr complete exam Type 2 diabetes albina itus without complications - Letter sent to PCP/Specialist Related to Type 2 diabetes mellitus without complications Follow up - 6 months complete ca t eval Impression/Plan - Ca taracts discussed and symptoms [...] sent to Dr. Doss and Dr. Disla Follow up - sched CE OD 1st [...]
[2025-05-14] VITALS (17 sets, daily range): BP systolic 115–132; BP diastolic 40–71; PULSE 101–129; RESP 16–29; TEMP 37.1–38.6; O2SAT 90–97; BMI 67.3
--- NOTE | ~2025-05-14 | CT_ITS ---
CT ABDOMEN AND PELVIS WITHOUT CONTRAST Clinical History: septic; UTI, repeated with tighter straps and repositioning Comparison: 09/24/2021 Technique: Unenhanced axial images lung bases to symphysis pubis Coronal, sagittal reformats CT images acquired with automatic exposure control for dose reduction DLP: 3856 mGy-cm Findings: Without intravenous contrast, sensitivity for detecting visceral parenchymal abnormalities decreased. Portions of left hemiabdomen excluded from images Lung bases: Dependent atelectasis. Visualized heart and pericardium: Coronary artery calcification. Liver: Enlarged. Steatosis. Gallbladder: Removed. Spleen: Unremarkable. Pancreas: Atrophy. Adrenal glands: Unremarkable. Kidneys: Right kidney- No hydronephrosis. No renal stones. Left kidney- No hydronephrosis. No renal stones. Distal esophagus/stomach: Unremarkable. Small bowel loops: Normal caliber and wall thickness. Colon: Diverticula. Normal caliber and wall thickness. Appendix not seen. Nodes: Prominent partially calcified nodes right groin. Peritoneum: No ascites. No free intraperitoneal air. Urinary bladder: Mild wall thickening but under distended. Prostate: Unremarkable. Bones: No acute bony abnormality. Soft tissues: Midline abdominal wall hernia mesh. Unopacified abdominal aorta: No aneurysmal dilatation. IMPRESSION: 1. No acute findings. Reviewed, dictated and finalized at location R. IMPRESSION: 1. No acute findings.
--- NOTE | ~2025-05-14 | XR_ITS ---
Examination: XR chest 1V portable Clinical History: AMS, cough, fever Comparison: 10/22/2021 Technique: Portable AP Findings: Right chest Mediport. Cardiomegaly. Poor visualization left hemidiaphragm. Increased diffuse interstitial markings. No acute bony abnormality. IMPRESSION: 1. Interstitial pulmonary edema and/or pneumonitis. 2. Left basilar atelectasis and/or airspace disease. Reviewed, dictated and finalized at location R.
--- NOTE | ~2025-05-14 | XR_ITS ---
Examination: XR chest 1V portable Clinical History: Shortness of breath Comparison: 1 day prior Technique: Portable AP Findings: Right chest Mediport. Cardiomegaly. Basilar predominant interstitial markings persist. Poor visualization left hemidiaphragm persists. No acute bony abnormality. IMPRESSION: 1. Persistent bibasilar atelectasis and/or airspace disease. Reviewed, dictated and finalized at location R.
--- NOTE | ~2025-05-14 | XR_ITS ---
EXAMINATION: XR chest 1V portable COMPARISON: No comparisons available. HISTORY: dyspnea, drowsiness FINDINGS: Moderate pulmonary venous congestion. Bilateral small infiltrates. No pneumothorax. Moderate cardiomegaly. Mediastinal and hilar contours are within normal limits. Bony thorax no acute abnormality. Miscellaneous: Right Mediport in the SVC. Impression: Probable bilateral pneumonia superimposed upon CHF Reviewed, dictated and finalized at location P. Impression: Probable bilateral pneumonia superimposed upon CHF
--- NOTE | ~2025-05-14 | US_ITS ---
EXAMINATION: US renal BI DATE: 05/16/2025 13:50 INDICATION: Acute renal insufficiency TECHNIQUE: Multiple ultrasound grayscale images of the kidneys were obtained. COMPARISON: CT dated FINDINGS: The right kidney measures 13.2 x 6.3 x 6.4 cm. The left kidney measures 14.1 x 6.3 x 6.2 cm. The kidneys demonstrate normal echogenicity. There is no hydronephrosis in either kidney. No stones identified. The bladder is is not visualized which could be due to body habitus or decompressed state. IMPRESSION: 1. Normal kidneys without hydronephrosis. Reviewed, dictated and finalized at location A.
--- NOTE | 2025-05-14 09:34 | ECG_ITS ---
Test Date: 2025-05-14 09:36:39 Measurements Intervals [place] Rate: 128 P: 0 SD: 0 QRS: -50 QRSD: 115 T: 67 QT: 308 QTc: 450 Interpretive Statements ATRIAL FLUTTER/TACHYCARDIA WITH RAPID VENTRICULAR RESPONSE LEFT AXIS DEVIATION LOW QRS VOLTAGE IN PRECORDIAL LEADS POSSIBLE RIGHT VENTRICULAR CONDUCTION DELAY INFERIOR INFARCT, AGE INDETERMINATE EXTENSIVE ANTERIOR INFARCT, AGE INDETERMINATE BASELINE ARTIFACT- AVL, V6 ABNORMAL ECG No previous ECG available for comparison Electronically Signed On 05-14-2025 10:32:14 CDT by Hema Emery D.O.
[2025-05-14 09:57] LABS: Hematocrit 46.1 % (42.0-52.0); Hemoglobin 13.9 g/dL (14.0-18.0); Immature Granulocyte Percent A 2.0 % (0-0.5); Lymphocytes Absolute Auto 0.92 K/mm3 (0.9-3.2); Mean Corpuscular HGB Conc 30.2 g/dl (32-36); Mean Corpuscular Hemoglobin 27.4 pg (26-34); Mean Corpuscular Volume 90.9 fl (80-100); Nucleated Red Blood Cells Absolute Auto 0.000 K/mm3 (0.0-0.012); Nucleated Red Blood Cells Perc 0.0 % (0.0-0.2); Platelet Count Result 176 k/mm3 (150-375); Red Blood Count 5.07 M/mm3 (4.6-6.20); White Blood Count 18.4 K/mm3 (4.5-10.0)
--- OUTSIDE RECORDS SUMMARY | 2025-05-14 09:58 | XMS_ITS | Encounter Summary ---
Author Organization [facility] Address [address] [facility] [place] [address] Care Team Providers Care Director Of Income Tax Name Role Phone Unavailable Primary Care Provider Unavailabl e Encounter Details Date Type Department Care Team (Late st Contact Info) Description 02/08/2018 Lab [address] [facility] Care Pathology Lab [address] [place] [address] Neal Flores MD [address] [address] Social History Tobacco Use Types [...] CDT) Case Report Surgical Pathology Report Case: [id number] Authorizing Provider: Neal Flores MD Collected: 02/05/2018 [...] deeper H+E stained recut prepared at the [facility] Department of Pathology confirms these findings. Immunohistochemistry is performed at the [facility] Department of Pathology to further evaluate the [...] inguinal mass specimen shows involvement by a [id number] B-cell lymphoma that is most consistent with follicular lymphoma. Grading is not recommended to be performed on needle core biopsies, but rather, should be conducted on excisional biopsy samples. Correlation with clinical findings and relevant cytogenetic/molecular studies is required. XUAN/LORI 02/09/2018 5:04 PM [facility] Clinical History 67 yo man with a 5.7 x 10 cm right inguinal mass. 02/09/2018 5:04 PM [facility] Materials Received Received are 2 slides and 1 block labeled as Pascual Kowalski and A [id number] along with a copy of the outside pathology report. [place] [address]. All materials are returned to the referring institution, along with a copy of our final report. 02/09/2018 5:04 PM [facility] Disclaimer The performance characteristics of all immunohistochemical and indirect immunofluorescence stains (if any) cited in this report were determined by the Histopathology Laboratory of [facility]. Some of these tests were developed [...] LAB Embedded Images 02/09/2018 5:04 PM [address] [facility] Pathology/Cytolo gy LYMPH NODE SPECIMEN / Unknown 02/05/2018 10:04 AM CDT 02/08/2018 4:28 PM CDT Neal Flores MD LAB - PATHOLOGY/CYTOLOGY ORDER ZAIN Final Result [facility] [address] [place], [place] [address] [place] [address] documented in this encounter Visit Diagnoses Not on filedocumented in this encounter
--- OUTSIDE RECORDS SUMMARY | 2025-05-14 09:58 | XMS_ITS | Clinical Summary ---
Author Organization [facility] [address] Address [address] [place] [address] Care Team Providers Care Certified Registered Locksmith Name Role Phone Leo Doss MD Unavailable [phone] Leo Doss MD Primary Care Provider [phone] Sravan Higgins MD Unavailable Morgan Ballard MD [...] (04/03/2020): Added automatically from request for surgery [id number] Nonrheumatic aortic valve stenosis 08/23/2019 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 Coronary artery disease invo lving [place] coronary artery of [place] heart without angina pectoris 08/11/2017 History of coronary artery stent placement 08/11 Morbid obesity with body mass index of 50.0-59.9 in adult 08/11/2017 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 Diabetes mellitus 07/17/2015 Encounters Date Type Department Care Team Description 04/13/2025 1:45 PM CDT Office Visit [facility] Cardiology [address] [place] [address] Leo Ribeiro MD S/P TAVR (transcatheter aortic valve replacement) (Primary Dx); History of coronary artery stent placement; Coronary artery disease involving [place] coronary artery of [place] heart without angina pectoris 03/08/2025 11:15 AM CDT Office Visit [facility] Medicine Orthopaedic Surgery [address] [facility] [address] [place] [address] Nu Lopez PA Primary osteoarthritis of both [...] on file Legal Sex Male 5:59 PM 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 Gender Identity Not on file Sexual Orientation Not on file Obstetrics History Last Filed Vital Signs Vital Sign Reading Time Taken Comments Blood Pressure 154/62 04/13/2025 1:02 PM CDT Pulse 81 04/13/2025 1:02 PM CDT Temperature 36.9 C (98.4 F) 09/22/2020 8:10 AM 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 Respiratory Rate 94 04/13/2025 1:02 PM CDT Oxygen Saturation 95% 10/06/2024 9:36 AM 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 Inhaled Oxygen Concentration - - Weight 181.4 kg (400 lb) 04/13/2025 1:02 PM CDT per pt Height 172.7 cm (5' 8) 04/13/2025 1:02 PM CDT Body Mass Index 60.82 04/13/2025 1:02 PM CDT Plan of Treatment Health Maintenance Due Date Last Done Comments Albumin Creatinine Ratio, Urine 1950 Colon Cancer Screening-Colonoscopy 1950 Depression Screening 1950 Hepatitis C Screening 1950 Dilated Eye Exam 1950 Foot Exam 1950 Hepatitis B Screening 1969 Zoster Vaccine (1 of 2) 1970 DTaP/Tdap/Td Vaccine (1 - Tdap) 05/23/2004 4 Well Visit 65+ 2016 Hemoglobin A1C 10/05/2020 04/04/2020 Fall Risk Assessment 09/22/2021 09/22/2020 eGFR 09/22/2021 09/22/2020, 09/10, 09/20/2020, Additional history exists Lipid Panel 10/01/2024 10/01/2023, 07/10, 12/17/2021, Additional history exists Influenza Vaccine (#1) 2025 , 06/05/2021, 05/03/2020, Additional history exists Pneumococcal vaccine 65+ Completed 017, 04/10/2017, 07/14/2012 Medical Devices Implanted Type Area Scale Model Maker Device Identifier Shelf Expiration Date Model / Serial / Lot [employer] [id number] Gus 3 29mm Transcatheter Valve Aortic Bovine Sterile - [id number] - [id number] Implanted:Qty: 1 on 09/20/2020 by Morgan Ballard MD at [facility] Prosthetic Valve [employer] 12/25/2021 [id number] / [id number] / Daig Coco [id number] Device Closure Angio-Seal Vip Bondek-Plus Polyglyd L70 Cm Od6 Fr Odsec.035 In Vascular - [id number] Implanted:Qty: 1 on 04/06/2020 by Morgan Ballard MD at [facility] [employer] [id number] / / Procedures Procedure Name Priority Date/Time Associated Diagnosis Comments MI ARTHROCENTESIS ASPIR&/INJ MAJOR JT/BURSA W/O US Routine 03/08/2025 11:15 AM CDT Primary osteoarthritis of both knees POCT LIPID PANEL Routine 10/01/2023 2:49 PM 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 Lipid screening EGFR Routine 09/22/2020 5:41 AM 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 HEMOGLOBIN A1C Routine 04/04/2020 2:22 AM CDT from Last 3 Months or Most Recently Relevant to Health Maintenance Results * MI ARTHROCENTESIS ASPIR&/INJ MAJOR JT/BURSA W/O US (03/08/2025 [...] the procedure well with no immediate complications us Nu RAWLS IN CLINIC/BEDSIDE DAGO BRASHER Final Result * POCT lipid panel (10/01/2023 2:49 PM 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) Cholesterol, POC 133 mg/dL HDL, POC 40 mg/dL Triglycerides, POC 172 mg/dL LDL Cholesterol POC 59 mg/dL Chol/HDL Ratio, POC 1.5 Non-HDL Cholesterol, POC 94 mg/dL Cholesterol Total, POC 133 mg/dL Capillary blood 10/01/2023 2 :49 PM 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 us Leo Ribeiro MD POINT OF CARE TEST ORDER ZAIN Final Result * eGFR (09/22/2020 5:41 AM 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) eGFR 46 mL/min/1.7 3 m2 MANDI BURNS [...] 2020 Blood specimen (specimen) 09/22/2020 5:41 AM 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 09/22/2020 6:16 AM 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 us Morgan Ballard MD LAB BLOOD ORDERABLES Final Resul t Performing Organization Address [facility] de Phone Number MANDI BURNS [phone] [address] Department [employer] [address] * (ABNORMAL) Hemoglobin A1c (04/04/2020 [...] and children were not included. (Diabetes Care 31:8518-2223, 2008). The eAG is not equivalent to a fasting glucose. 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.pneumonia tracheal aspiraate 04/07/20 04/07/2020 Insurance [facility] Address: [address] [address] [place] [id number] [facility] Address: [address] [address] [place] [address] [facility] Address: [address] [address] [place] [address] Advance Directives For more information, please contact: [phone] * Full Code (Latest Code Status on File) Date Activated Date Inactivated Comments 09/20/2020 12:36 PM 09/22/2020 5:46 PM * Full Code Date Activated Date Inactivated Comments 04/02/2020 11:40 PM 04/22/2020 4:10 AM * Full Code Date Activated Date Inactivated Comments 04/02/2020 11:17 PM 04/02/2020 11:40 PM Care Teams Certified Registered Locksmith Relationship Specialty Start Date End Date Leo Doss MD PCP - General Family Medicine 05/06/18 Leo Doss MD 01/15/18 Sravan Higgins MD Consulting Physician Vascular Surgery 04/21/20 Morgan Ballard MD [address] [place] [address] Consulting Physician Cardiology 04/21/20
--- OUTSIDE RECORDS SUMMARY | 2025-05-14 09:58 | XMS_ITS | Clinical Summary ---
Author Organization [facility] Address [address] [place] [address] Care Team Providers Care Swimming Instructor Name Role Phone Leo Doss MD Primary Care Provider [phone] Allergies No known active allergies Medications aspirin [...] st Contact Info) Description 08/17/2025 10:00 AM HATCHERY MANAGER Office Visit [facility] Oncology and Hematology - [place] [address] [facility] [address] [place] [address] Monty Oliveira MD [address] [facility] [address] [place] [address] Health Maintenance Due Date Last [...] ORDERABLES Edited Re sult - Final NON [facility] from Last 3 Months or Most Recently Relevant to Health Maintenance Insurance [place] [facility] [address] [place] [address] [place] Care Teams Swimming Instructor Relationship Specialty Start Date End Date Leo Doss MD PCP - General Family Practice 03/04/18
--- OUTSIDE RECORDS SUMMARY | 2025-05-14 09:58 | XMS_ITS | Encounter Summary ---
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
--- OUTSIDE RECORDS SUMMARY | 2025-05-14 09:58 | XMS_ITS | Encounter Summary ---
Author Organization [facility] Address [address] [place] [address] Care Team Providers Care Die Repair Machinist Name Role Phone Unavailable Primary Care Provider Unavailabl e Encounter Details Date Type Department Care Team (Late st Contact Info) Description 02/05/2018 Lab Requisition [facility] [address] [place] [address] Neal Flores MD [address] [address] Soft tissue disorder Social History [...] AM CDT) Case Report Flow Cytometry Case: [id number] Authorizing Provider: Neal Flores MD Collected: 02/05/2018 10:04 AM Pathologist: Keerthi Alston MD Received: 02/05/2018 01:44 PM Specimen: Soft Tissue Mass, RIGHT INGUINAL MASS 8 4:58 PM CDT [facility] Final Diagnosis Inguinal soft tissue mass, Right , Flow cytometric immunophenotypic analysis: - 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 - See interpretation. 8 [...] cytometry specimen is reviewed for air quality manager purposes. Overall, the right inguinal mass specimen shows evidence of involvement by a CD5-negative, [id number] mature B-cell lymphoma. Correlation with clinical findings and the concurrent tissue biopsy ([facility]; [id number]) is required for further classification. 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 A Flow CD3 A Flow CD10 A Flow CD20 A Flow CD23 A Flow CD2 A Flow CD4 A Flow CD1a A Flow CD5 A Flow CD19 A Flow CD34 A Flow CD45 A Flow CD7 A Flow CD8 A Flow CD30 A So-Hi+CD19+ A Lambda+CD19+ 8 4:58 PM [facility] Disclaimer Test performed at [facility], [address] [place] [address], [id number]. *The established laboratory minimum viability is 70%. [...] complexity clinical testing. 8 4:58 PM CDT [facility] Embedded Images 8 4:58 PM CDT [facility] Pathology/Cytolo gy SOFT TISSUE MASS / Unknown 02/05/2018 10:04 AM CDT 02/05/2018 1:44 PM CDT Neal Flores MD LAB - PATHOLOGY/CYTOLOGY ORDER ZAIN Final Result [facility] [address] [phone] documented in this encounter Visit Diagnoses Diagnosis Soft tissue disorder Disorders of soft tissue, unspecified documented in this encounter
--- OUTSIDE RECORDS SUMMARY | 2025-05-14 09:58 | XMS_ITS | Clinical Summary ---
Author Organization [facility] [employer] Address [address] [place] [address] Care Team Providers Care High School Teacher Name Role Phone Unavailable Primary Care Provider Unavailabl e Source Comments [facility] [employer],non-owned Affiliates and Associated Physician Practices is amultiple site organization consisting of ambulatory clinics and hospital sitesin [place], [place], [place] and [place]. This disclosure is being madepursuant to the Care Everywhere program and may not contain all information available regarding this patient. Last updated 18.[facility] [employer] Social History Tobacco Use Types Packs/Day Years [...] 2001 ZOSTER VACCINE (1 of 2) 2001 DEPRESSION SCREENING 08/10/2024 COVID-19 VACCINE (1 - 2023-2 5 season) 2025 INFLUENZA VACCINE (#1) 2025 Respiratory Syncytial Virus [...] patient's age to complete this topic Insurance [facility] MANAGED MEDICARE ADV
--- OUTSIDE RECORDS SUMMARY | 2025-05-14 09:58 | XMS_ITS | Encounter Summary ---
Author Organization [facility] Address [address] [place] [address] Care Team Providers Care Fabric Separator Operator Name Role Phone Leo Doss MD Primary Care Provider [phone] Encounter Details Date Type Department Care Team ([facility] Contact Info) Description 08/25/2018 Chart Note [facility] Radiation Therapy [address] [place] [address] [place] [address] [place] [address] Social History Tobacco Use Types [...] (Late Contact Info) Description 08/17/2025 10:00 AM FACTORY REPRESENTATIVE Office Visit [facility] Oncology and Hematology - [place] [address] [facility] [address] [place] [address] Monty Oliveira MD [address] [facility] [address] [place] [address] documented as of this encounter Visit Diagnoses Not on filedocumented in this encounter Care Teams Fabric Separator Operator Relationship Specialty Start Date End Date Leo Doss MD PCP - General Family Practice 03/04/18 documented as of this encounter
--- OUTSIDE RECORDS SUMMARY | 2025-05-14 09:58 | XMS_ITS ---
Author Organization [facility] [address] Address [address] [place] [address] Care Team Providers Care Doctor Of Podiatric Medicine Name Role Phone Leo Doss MD Unavailable [phone] Leo Doss MD Primary Care Provider [phone] Sravan Higgins MD Unavailable [phone] Morgan Ballard MD Unavailable Active Problems Problem [...] (04/03/2020): Added automatically from request for surgery [id number] Nonrheumatic aortic valve stenosis 08/23/2019 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 Coronary artery disease invo lving [place] coronary artery of [place] heart without angina pectoris 08/11/2017 History of [...]
--- OUTSIDE RECORDS SUMMARY | 2025-05-14 09:58 | XMS_ITS | Clinical Summary ---
Author Organization [facility] Address [address], [place] [address] Phone Care Team Providers Care Medical Billing Instructor Name Role Phone Leo Doss MD Primary Care Provider [phone] Allergies No known active allergies Medications clopidogrel (PLAVIX) 75 MG tablet 1 Active lisinopril (PRINIVIL) 10 MG tablet 1 Active ferrous sulfate 325 (65 Fe) MG tablet Take by mouth Active cholecalciferol (D3-50) 1.25 MG (37255 UT) capsule Take 100,000 Units by mouth once a week Active Janumet 50-1000 MG per tablet Take 1 tablet by mouth 2 (two) times a day 1 Active gabapentin (NEURONTIN) 600 MG tablet Take 1,200 mg by mouth daily Active QUEtiapine (SEROquel) 50 MG tablet Take 50 mg by mouth every night 1 Active Okay-3 Fatty Acids (Super Okay-3) 1000 MG capsule Take 1,200 mg by [...] tongue Active ergocalciferol (VITAMIN D2) 1.25 MG (90272 UT) capsule TAKE 1 CAPSULE BY MOUTH [...] (01/26/2021): Added automatically from request for surgery [id number] Coronary atherosclerosis 08/11/2017 Immunizations Immunization Administration Dates [...] 04/10/2017 Influenza Vaccine (#1) 2025 06/10/2021 Insurance [facility] MEDICARE ADVANTAGE MEDICAID - [place] Care Teams Medical Billing Instructor Relationship Specialty Start Date End Date Leo Doss MD [address] [place] [address] PCP - General Internal Medicine 01/21/21
[2025-05-14] MEDS: ACETAMINOPHEN 325 MG TABLET 650 MG PO (10:01)
--- NOTE | 2025-05-14 10:02 | ED_ITS ---
HPI - Altered Mental Status General Chief Complaint: Altered Mental Status Stated Complaint: lethargic, weakness, AMS Time Seen by Provider: 05/14/25 09:32 History of Present Illness HPI narrative: Family found him appearing confused, lethargic, patient unable to tell me much. Cannot answer if he is having any pain anywhere. Related Data Home Medications ?Medication ?Instructions ?Recorded ?Confirmed ?Last Taken ?Type aspirin 81 mg tablet,delayed 81 mg PO DAILY 05/31/19 0 04/26/25 07/10/20 22:30 History release diphenoxylate-atropine 2.5 1 tablet PO QID PRN Diarrhe a 05/03/20 04/26/25 Unknown History mg-0.025 mg tablet (Lomotil) omega 3-byb-nmt-fish oil 1,200 mg 1 cap PO BID 2 04/26/25 Unknown History (144 mg-216 mg) capsule (Fish Oil) ferrous sulfate 325 mg (65 mg 325 mg PO .QOD 03/13/23 04/26/25 Unknown History iron) tablet Allergies Allergy/AdvReac Type Severity Reaction Status Date / Time No Known Allergies Allergy Verified 04/26/25 07:39 Review of Systems 2 Review of Systems: ROS unobtainable: Yes unobtainable due to mental status PMFSH Past Medical History Medical History Obesity Chronic respiratory failure Kidney disease History of LA (myocardial infarction) High cholesterol Wears glasses Weight gain Right knee DJD Left knee DJD CKD (chronic kidney disease) Pulmonary hypertension Moderate on echocardiogram from 2018 Follicular low grade B-cell lymphoma Morbid (severe) obesity due to excess calories Restless legs syndrome Unspecified background retinopathy Morbid obesity with BMI of 60.0-69.9, adult Acute respiratory failure Hospitalization June 06 through July 20, 2019 intubated 07/07/2019 through 07/14/2019 due to sepsis with septic shock, fluid overload, cellulitis with abscess of the left buttock Aortic stenosis severe on echocardiogram July 2019 Non-Hodgkin lymphoma He is a patient of Dr. Oliveira. Depression Diabetes Arthritis GERD (gastroesophageal reflux disease) Sleep apnea on BiPAP with O2 bleed in Hypertension Hypercholesterolemia CAD (coronary artery disease) of artery bypass graft With history of stents x4. Dr. Ribeiro Mitral valve prolapse CHF (congestive heart failure) Echocardiogram 02/27: EF of 35%, LVH, akinetic apical segment, Aortic valve not well visualized Peripheral neuropathy Cataract Surgical History Surgical History History of heart artery stent S/P TAVR (transcatheter aortic valve replacement) H/O arthroscopic knee surgery H/O inguinal hernia repair History of appendectomy H/O cardiac catheterization Hx of tonsillectomy Family History Family History Father Heart disease Diabetes mellitus Lung disease CHF (congestive heart failure) Atrial fibrillation Mother Breast cancer Dementia Son Aneurysm, aorta, abdominal, ruptured Acute myocardial infarction Other Arthritis Cerebrovascular accident Family history of obesity Hypertension Social History Social History Social History: Mr. Kowalski is and lives with his in [place], [place]. He designates his , Puja, as his surrogate decision maker and he wishes to be a full code. He denies alcohol, tobacco, and drug use. His primary care provider is Dr. Leo Doss. Smoking status: Never smoker Alcohol intake: former Substance use: never Do You Feel Safe in your Home?: Yes Lack of Transportation: No Lack of Food: Never True Current Housing: I Have Housing Concerned About Future Housing: No Difficulty Paying Gas/Electric Bills: No Difficulty Paying for Meds: No Currently Unemployed: No Education: Trade/Vocational Certificate Difficulty w/ Childcare or Family Care: No Gender identity (if verbalized by the patient): Male Sexual Orientation (if Verbalized by the Patient): Straight or Heterosexual Spiritual care concerns: No Agree to blood products: Yes Exam 2 Narrative: EXAMINATION OF ORGAN SYSTEMS/BODY AREAS: Constitutional: Vital signs per nursing GENERAL: Resting comfortably HEAD: Normal with no signs of head trauma. EYES: EOMI, conjunctiva normal ENT: Hearing grossly intact LUNGS: Nonlabored breathing. HEART: Tachycardic ABD: [Soft], [nontender to palpation] EXT: Normal range of motion SKIN: Some bruising to abdominal wall NEURO: [Wakes easily to voice, knows name but is confused. No gross focal sensory or strength deficits.] PSYCH: Normal affect Course Vital Signs Vital signs: Vital Signs Temperature 100.2 F H 05/14/25 09:29 Pulse Rate 113 H 05/14/25 09:29 Respiratory Rate 16 05/14/25 09:29 Blood Pressure 119/59 L 05/14/25 09:29 Pulse Oximetry 93 05/14/25 09:29 Oxygen Delivery Room Air 05/14/25 09:29 Temperature 100.2 F H 05/14/25 09:29 Pulse Rate 129 H 05/14/25 10:14 Respiratory Rate 16 05/14/25 09:29 Blood Pressure 119/59 L 05/14/25 09:29 Pulse Oximetry 93 05/14/25 10:15 Oxygen Delivery Nasal Cannula 05/14/25 10:15 Oxygen Flow Rate 2.5 05/14/25 10:15 MDM - Altered Mental Status MDM Narrative Medical decision making narrative: Patient presents with altered mental status, he this CT report any complaints to me, but he is not able to give much history. On exam he is warm to touch, does have a fever, is tachycardic, sepsis workup immediately initiated. He does have history of CHF with fluid overload and does have slightly low oxygen, so I will give fluids very judiciously and carefully. Broad-spectrum antibiotics started. EKG on my independent interpretation shows rate 128, atrial flutter, QRS with 15, QTC 450, there was some very minimally elevated ST segments in the inferior leads without reciprocal changes, I suspect these EKG changes are likely from demand. UA consistent with UTI, troponin was elevated however his troponin is frequently elevated, I did discuss this case with the mission analyst who agrees this is likely from sepsis, no indication for heparin drip especially patient has no chest pain. I did obtain CT abdomen/pelvis to ensure no septic stone, this is unremarkable. Case discussed with hospitalist for admission. Lab Data 05/14/25 09:50 05/14/25 09:50 Labs: Lab Results 05/14/25 05/14/25 05/14/25 Range/Units 09:50 10:11 12:22 WBC 18.4 H (4.5-10.0) K/mm3 RBC 5.07 (4.6-6.20) M/mm3 Hgb 13.9 L (14.0-18.0) g/dL Hct 46.1 (42.0-52.0) % MCV 90.9 (80-100) fl MCH 27.4 (26-34) pg MCHC 30.2 L (32-36) g/dl RDW 18.4 H (11.5-14.5) % Plt Count 176 (150-375) k/mm3 MPV 10.4 (7.4-10.4) fl Immature Gran % (Auto) 2.0 H (0-0.5) % Neut % (Auto) 87.2 H (45.5-73.1) % Lymph % (Auto) 5.0 L (18.3-44.2) % Carlton % (Auto) 4.6 (2.6-8.5) % Eos % (Auto) 0.8 (0-4.4) % Baso % (Auto) 0.4 (0.2-1.2) % Lymph # (Auto) 0.92 (0.9-3.2) K/mm3 Carlton # (Auto) 0.9 H (0.1-0.6) K/mm3 Eos # (Auto) 0.1 (0-0.3) K/mm3 Baso # (Auto) 0.1 (0.0-0.1) K/mm3 Abs Immat Gran (auto) 0.36 H (0.00-0.031) K/mm3 Absolute Neuts (auto) 16.1 H (1.3-6.7) K/mm3 Absolute Nucleated RBC 0.000 (0.0-0.012) K/mm3 Nucleated RBC % 0.0 (0.0-0.2) % Sodium 139 (137-145) mmol/L Potassium 3.9 (3.4-5.0) mmol/L Chloride 102 (98-107) mmol/L Carbon Dioxide 27 (22-30) mmol/L Anion Gap 10 (4-12) mmol/L BUN 44 H (9-20) mg/dL Creatinine 2.13 H (0.7-1.3) mg/dL Estim Creat Clear Calc 49 ml/min Estimated GFR 31 L (59 - ) Glucose 189 H (65-110) mg/dL Lactic Acid 2.4 H 1.6 (0.7-2.0) mmol/L Calcium 9.0 (8.4-10.2) mg/dL Total Bilirubin 0.9 (0.2-1.3) mg/dL AST 27 (17-59) U/L ALT 22 (6-50) U/L Alkaline Phosphatase 77 (38-126) U/L Troponin I 0.098 H* (0.000-0.034) ng/mL NT-Pro-B Natriuret Pep 1120 H (19.9-100) pg/mL Total Protein 7.3 (6.3-8.2) g/dL Albumin 3.9 (3.5-5.1) g/dL Urine Color Dark yellow (Yellow) Urine Appearance Cloudy H (Clear) Urine pH 5.0 (5.0-9.0) Ur Specific [place] 1.026 (1.001-1.035) Urine Protein 2+ H (Negative) mg/dL Urine Glucose (UA) Trace H (Negative) mg/dL Urine Ketones Trace H (Negative) mg/dL Ur Blood (Man) 1+ H (Negative) Urine Nitrate Negative (Negative) Urine Bilirubin Negative (Negative) Urine Urobilinogen 1.0 (<2.0) mg/dL Add Ur Microanalysis Reviewed Leukocyte Esterase Rfl 2+ H (Negative) LINCOLN/UL Urine RBC 6-10 H (0-2) /hpf Urine WBC >100 H (0-3) /hpf Urine WBC Clumps Present H (None) /HPF Ur Squamous Epith Cells Occasional (Few) /hpf Urine Bacteria 1+ H /hpf Urine Casts 11-20 Influenza A (RT-PCR) Negative (Negative) Influenza B (RT-PCR) Negative (Negative) RSV (RT-PCR) Negative (Negative) SARS-CoV-2 RNA (RT-PCR) Negative (Negative) Critical Care Time Critical Care Time Critical Care Time: Yes Total Critical Care Time: 31 Discharge Plan Discharge Clinical Impression: Sepsis, Acute UTI, Elevated troponin Patient Disposition: Still a Patient Condition: Serious Patient Language: Portuguese Prescriptions: No Action aspirin 81 mg Tablet,Delayed Release (Dr/Ec) 81 mg PO DAILY loratadine [Claritin] 10 mg tablet 10 mg PO DAILY Qty: 90 3RF ferrous sulfate 325 mg (65 mg iron) tablet 325 mg PO .QOD diphenoxylate-atropine [Lomotil] 2.5-0.025 mg tablet 1 tablet PO QID PRN (Reason: Diarrhea) omega 7-iwm-iat-fish oil [Fish Oil] 1,200 (144-216) mg Capsule 1 cap PO BID cyanocobalamin (vitamin B-12) [Vitamin B-12] 1,000 mcg Tablet 1,000 mcg PO QAM Qty: 30 0RF (DME) blood-glucose meter [OneTouch Ultra2 Meter] Kit See Rx Instructions .Route Qty: 1 3RF Rx Instructions: As directed (DME) FreeStyle Michelle 3 [place] Misc See Rx Instructions .Route Qty: 1 0RF Rx Instructions: As directed diclofenac sodium [Arthritis Pain (diclofenac)] 1 % gel 4 g topical QID Qty: 100 1RF Rx Instructions: apply to bilateral knees QID fluticasone propionate [Flonase Allergy Relief] 50 mcg/actuation spray,suspension 1 spray intranasal BID Qty: 48 3RF Rx Instructions: administer into each nostril metoprolol tartrate 25 mg tablet 12.5 mg PO BID Qty: 180 3RF triamcinolone acetonide 0.1 % cream See Rx Instructions .ROUTE .COMPLEX Qty: 80 0RF Dose Instruction: APPLY TOPICALLY TO THE AFFECTED AREA FOUR TIMES DAILY Rx Instructions: APPLY TOPICALLY TO THE AFFECTED AREA FOUR TIMES DAILY clopidogrel 75 mg tablet See Rx Instructions .ROUTE .COMPLEX Qty: 100 2RF Dose Instruction: TAKE 1 TABLET BY MOUTH DAILY Rx Instructions: TAKE 1 TABLET BY MOUTH DAILY (DME) FreeStyle Michelle 3 Sensor Device See Rx Instructions .Route Qty: 13 1RF Rx Instructions: Change every 14 days. atorvastatin 80 mg tablet See Rx Instructions .ROUTE .COMPLEX Qty: 100 2RF Dose Instruction: TAKE 1 TABLET BY MOUTH ONCE DAILY Rx Instructions: TAKE 1 TABLET BY MOUTH ONCE DAILY quetiapine 50 mg tablet See Rx Instructions .ROUTE .COMPLEX Qty: 100 2RF Dose Instruction: TAKE 1 TABLET BY MOUTH EVERY NIGHT AT BEDTIME Rx Instructions: TAKE 1 TABLET BY MOUTH EVERY NIGHT AT BEDTIME Ozempic 2 mg/dose (8 mg/3 mL) pen injector See Rx Instructions .ROUTE .COMPLEX Qty: 9 3RF Dose Instruction: INJECT SUBCUTANEOUSLY 2MG WEEKLY Rx Instructions: INJECT SUBCUTANEOUSLY 2MG WEEKLY trazodone 100 mg tablet See Rx Instructions .ROUTE .COMPLEX Qty: 50 2RF Dose Instruction: TAKE ONE-HALF TABLET BY MOUTH AT BEDTIME Rx Instructions: TAKE ONE-HALF TABLET BY MOUTH AT BEDTIME (DME) OneTouch Ultra Test Strip See Rx Instructions .ROUTE .COMPLEX Qty: 400 2RF Dose Instruction: USE TO TEST BLOOD SUGAR 4 TIMES DAILY Rx Instructions: USE TO TEST BLOOD SUGAR 4 TIMES DAILY (DME) pen needle, diabetic 32 gauge x /32 needle See Rx Instructions .ROUTE .MEDSUPPLY Qty: 400 3RF Rx Instructions: Use with Insulin 2 TID ( 6 needles /day) dapagliflozin propanediol [Farxiga] 5 mg tablet 5 mg PO DAILY Qty: 90 3RF Rx Instructions: USE BRAND PLEASE gabapentin 600 mg tablet See Rx Instructions .ROUTE .COMPLEX Qty: 300 1RF Dose Instruction: TAKE 2 TABLETS BY MOUTH TWICE DAILY Rx Instructions: TAKE 1 TABLET in AM, 2 tablets at night pantoprazole 40 mg tablet,delayed release (DR/EC) See Rx Instructions .ROUTE .COMPLEX Qty: 100 2RF Dose Instruction: TAKE 1 TABLET BY MOUTH DAILY Rx Instructions: TAKE 1 TABLET BY MOUTH DAILY insulin lispro [Humalog KwikPen Insulin] 100 unit/mL insulin pen See Rx Instructions .ROUTE .COMPLEX Qty: 75 2RF Dose Instruction: INJECT 15 UNITS SUBCUTANEOUSLY 3 TIMES DAILY WITH MEALS . USE PER SLIDING SCALE Rx Instructions: INJECT 15 UNITS SUBCUTANEOUSLY 3 TIMES DAILY WITH MEALS . USE PER SLIDING SCALE albuterol sulfate 90 mcg/actuation HFA aerosol inhaler See Rx Instructions .ROUTE .COMPLEX Qty: 25.5 2RF Dose Instruction: USE 1 TO 2 INHALATIONS BY MOUTH EVERY 4 TO 6 HOURS NEEDED FOR SHORTNESS OF BREATH OR WHEEZING Rx Instructions: USE 1 TO 2 INHALATIONS BY MOUTH EVERY 4 TO 6 HOURS NEEDED FOR SHORTNESS OF BREATH OR WHEEZING fluoxetine 20 mg tablet See Rx Instructions .ROUTE .COMPLEX Qty: 90 1RF Dose Instruction: TAKE ONE TABLET BY MOUTH DAILY AT 9 PM AT BEDTIME Rx Instructions: TAKE ONE TABLET BY MOUTH DAILY AT 9 PM AT BEDTIME Lantus Solostar U-100 Insulin 100 unit/mL (3 mL) insulin pen See Rx Instructions .ROUTE .COMPLEX Qty: 75 1RF Dose Instruction: INJECT SUBCUTANEOUSLY 75 UNITS AT BEDTIME Rx Instructions: INJECT SUBCUTANEOUSLY 75 UNITS AT BEDTIME pramipexole 1 mg tablet 1 mg PO QHS Qty: 100 1RF hydrocodone-acetaminophen 5-325 mg tablet 1 tablet PO Q6H PRN (Reason: pain) Qty: 60 0RF tizanidine 4 mg tablet 4 mg PO QHS PRN (Reason: muscle spasticity) Qty: 100 1RF bumetanide 2 mg tablet See Rx Instructions .ROUTE .COMPLEX Qty: 100 1RF Dose Instruction: TAKE 1 TABLET BY MOUTH DAILY Rx Instructions: TAKE 1 TABLET BY MOUTH DAILY (DME) lancets [OneTouch Delica Plus Lancet] 30 gauge misc See Rx Instructions .ROUTE .COMPLEX Qty: 400 2RF Dose Instruction: USE TO TEST BLOOD SUGARS 4 TIMES DAILY Rx Instructions: USE TO TEST BLOOD SUGARS 4 TIMES DAILY nitroglycerin 0.4 mg tablet, sublingual See Rx Instructions .ROUTE .COMPLEX Qty: 125 2RF Dose Instruction: DISSOLVE 1 TABLET UNDER THE TONGUE EVERY 5 MINUTES NEEDED FOR CHEST PAIN. MAX OF 3 TABLETS IN 15 MINUTES. CALL 911 IF PAIN PERSISTS. Rx Instructions: DISSOLVE 1 TABLET UNDER THE TONGUE EVERY 5 MINUTES NEEDED FOR CHEST PAIN. MAX OF 3 TABLETS IN 15 MINUTES. CALL 911 IF PAIN PERSISTS. ergocalciferol (vitamin D2) [Vitamin D2] 1,250 mcg (50,000 unit) capsule See Rx Instructions .ROUTE .COMPLEX Qty: 15 2RF Dose Instruction: TAKE 1 CAPSULE BY MOUTH WEEKLY ON WEDNESDAYS Rx Instructions: TAKE 1 CAPSULE BY MOUTH WEEKLY ON WEDNESDAYS Follow-up/Referrals: Leo Doss MD [Primary Care Provider, Family Practice]
[2025-05-14 10:11] LABS: Alanine Aminotransferase 22 U/L (6-50); Albumin Level 3.9 g/dL (3.5-5.1); Alkaline Phosphatase 77 U/L (38-126); Anion Gap 10 mmol/L (4-12); Aspartate Amino Transferase 27 U/L (17-59); Bilirubin,Total 0.9 mg/dL (0.2-1.3); Blood Urea Nitrogen 44 mg/dL (9-20); Calcium 9.0 mg/dL (8.4-10.2); Carbon Dioxide 27 mmol/L (22-30); Chloride 102 mmol/L (98-107); Estimated CRCL calculation 49 ml/min; Estimated Glomerular Filt Rate 31; Glucose 189 mg/dL (65-110); Potassium 3.9 mmol/L (3.4-5.0); Sodium 139 mmol/L (137-145); Total Protein 7.3 g/dL (6.3-8.2)
[2025-05-14 10:27] LABS: NT Pro B Type Natriuretic Pept 1120 pg/mL (19.9-100); Troponin I 0.098 ng/mL (0.000-0.034)
[2025-05-14 10:39] LABS: Add Urine Microscopic? YES; Appearance Urine Cloudy (Clear); Glucose Urine UA Trace mg/dL (Negative); Leukocyte Esterase Ur 2+ LEU/UL (Negative); Need Manual Microscopic Reviewed; Nitrate Urine Negative (Negative); Specific Grav Ur 1.026 (1.001-1.035)
[2025-05-14 10:56] LABS: Influenza A QL RT-PCR Negative (Negative); Influenza B QL RT-PCR Negative (Negative); RSV RNA, RT-PCR Negative (Negative); SARS-CoV-2 RNA PCR Negative (Negative)
[2025-05-14] MEDS: LACTATED RINGERS 1,000 ML 999 ML IV CONT (11:40)
[2025-05-14] MEDS: CEFEPIME 2 GM in SODIUM CHLORIDE 0.9% IV 50 ML 100 ML IVPB ×2 (11:40→21:30)
[2025-05-14] MEDS: VANCOMYCIN 1,250 MG/NS 250 ML 1,250 MG/250 ML BAG 166.67 MG IVPB ×2 (12:24→14:40)
--- NOTE | 2025-05-14 12:40 | PM.IMHP ---
H&P: HPI History of Present Illness Date/Time: 05/14/25 12:40 Chief Complaint: Altered mental status, sepsis, respiratory failure with hypoxia Narrative: This is a 74 year old male patient admitted to the hospital for sepsis, UTI, altered mental status and acute on chronic respiratory failure with hypoxia. Patient reports that his and nephew brought him in because he ?wasn?t acting right.? He endorses shortness of breath and feels ?a lot better? at the time of evaluation. Denies chest pain, nausea, and vomiting. Reports fever and chills of uncertain duration, likely less than 1?2 days. Urinary tract infection identified during ED evaluation. Urinary symptoms: denies dysuria or difficulty initiating stream; notes frequent urination. Breathing: currently denies trouble breathing during interview, though required supplemental oxygen during the day today and uses BiPAP with 4 L O2 at night for known obstructive sleep apnea. Abdominal symptoms: mild, diffuse abdominal tenderness without realizing beforehand that abdomen was bothersome. Bowel movements have been normal; denies diarrhea. Past medical history includes diabetes mellitus and obstructive sleep apnea. No continuous daytime oxygen use at baseline; uses oxygen only at night with BiPAP. Review of Systems Review of Systems: Constitutional: Positive for fever and chills. No timeline certainty; likely less than 1?2 days. Respiratory: Reports shortness of breath leading to presentation; currently denies trouble breathing during interview. Uses nocturnal BiPAP with 2 L O2. Required oxygen during the day today. No cough reported. Cardiovascular: Denies chest pain. Gastrointestinal: Denies nausea and vomiting. Reports normal bowel movements. Denies diarrhea. Genitourinary: Frequent urination. Denies difficulty urinating. Known urinary tract infection. Musculoskeletal: No specific joint pain reported. Skin: Redness on legs; left leg with an open area/wound. Neurological: Brought in for altered behavior (?wasn?t acting right?) per family. No focal neurologic deficits reported in interview. Endocrine: History of diabetes mellitus. Psychiatric: No mood symptoms reported; family noted behavior change. Hematologic/Lymphatic: No bleeding or bruising reported. [facility] Past Medical History Medical History Obesity Chronic respiratory failure Kidney disease History of MT (myocardial infarction) High cholesterol Wears glasses Weight gain Right knee DJD Left knee DJD CKD (chronic kidney disease) Pulmonary hypertension Moderate on echocardiogram from 2018 Follicular low grade B-cell lymphoma Morbid (severe) obesity due to excess calories Restless legs syndrome Unspecified background retinopathy Morbid obesity with BMI of 60.0-69.9, adult Acute respiratory failure Hospitalization June 06 through July 20, 2019 intubated 07/07/2019 through 07/14/2019 due to sepsis with septic shock, fluid overload, cellulitis with abscess of the left buttock Aortic stenosis severe on echocardiogram July 2019 Non-Hodgkin lymphoma He is a patient of Dr. Oliveira. Depression Diabetes Arthritis GERD (gastroesophageal reflux disease) Sleep apnea on BiPAP with O2 bleed in Hypertension Hypercholesterolemia CAD (coronary artery disease) of artery bypass graft With history of stents x4. Dr. Ribeiro Mitral valve prolapse CHF (congestive heart failure) Echocardiogram 02/27: EF of 35%, LVH, akinetic apical segment, Aortic valve not well visualized Peripheral neuropathy Cataract Surgical History Surgical History History of heart artery stent S/P TAVR (transcatheter aortic valve replacement) H/O arthroscopic knee surgery H/O inguinal hernia repair History of appendectomy H/O cardiac catheterization Hx of tonsillectomy Family History Family History Father Heart disease Diabetes mellitus Lung disease CHF (congestive heart failure) Atrial fibrillation Mother Breast cancer Dementia Son Aneurysm, aorta, abdominal, ruptured Acute myocardial infarction Other Arthritis Cerebrovascular accident Family history of obesity Hypertension Social History Social History Social History: Mr. Kowalski is and lives with his in [place], [place]. He designates his , Puja, as his surrogate decision maker and he wishes to be a full code. He denies alcohol, tobacco, and drug use. His primary care provider is Dr. Leo Doss. Smoking status: Never smoker Alcohol intake: never Substance use: never Do You Feel Safe in your Home?: Yes Lack of Transportation: No Lack of Food: Never True Current Housing: I Have Housing Concerned About Future Housing: No Difficulty Paying Gas/Electric Bills: No Difficulty Paying for Meds: No Currently Unemployed: No Education: Associate Degree Difficulty w/ Childcare or Family Care: No Gender identity (if verbalized by the patient): Male Sexual Orientation (if Verbalized by the Patient): Straight or Heterosexual Spiritual care concerns: No Agree to blood products: Yes Meds Home Medications and Allergies Home Medications ?Medication ?Instructions ?Recorded ?Confirmed ?Type aspirin 81 mg tablet,delayed 81 mg PO DAILY 05/31/19 05/14/25 History release diphenoxylate-atropine 2.5 1 tablet PO QID PRN Diarrhea 05/03/20 05/14/25 History mg-0.025 mg tablet (Lomotil) omega 7-fde-ban-fish oil 1,200 mg 1 cap PO BID 09/24/21 05/14/25 History (144 mg-216 mg) capsule (Fish Oil) cyanocobalamin (vitamin B-12) 1,000 mcg PO QAM #30 tabs 10/03/21 05/14/25 Rx 1,000 mcg tablet (Vitamin B-12) blood-glucose meter ([employer] #1 ea 12/05/21 05/14/25 Rx Ultra2 Meter kit) ferrous sulfate 325 mg (65 mg 325 mg PO .QOD 03/13/23 05/14/25 History iron) tablet loratadine 10 mg tablet (Claritin) 10 mg PO DAILY #90 tabs 03/28/24 05/14/25 Rx blood-glucose,health and safety inspector,cont #1 ea 06/27/24 05/14/25 Rx (FreeStyle Michelle 3 [place]) diclofenac sodium 1 % topical gel 4 g topical QID #100 grams 08/31/24 05/14/25 Rx (Arthritis Pain (diclofenac)) fluticasone propionate 50 1 spray intranasal BID #48 grams 08/31/24 05/14/25 Rx mcg/actuation nasal spray,suspension (Flonase Allergy Relief) metoprolol tartrate 25 mg tablet 12.5 mg (1/2 x 25 mg) PO BID #180 09/05/24 05/14/25 Rx tabs triamcinolone acetonide 0.1 % See Rx Instructions .Route 10/11/24 05/14/25 Rx topical cream .COMPLEX #80 grams clopidogrel 75 mg tablet See Rx Instructions .Route 10/21/24 05/14/25 Rx .COMPLEX #100 tabs blood-glucose sensor (FreeStyle #13 ea 10/24/24 05/14/25 Rx Michelle 3 Sensor device) atorvastatin 80 mg tablet See Rx Instructions .Route 12/07/24 05/14/25 Rx .COMPLEX #100 tabs quetiapine 50 mg tablet See Rx Instructions .Route 12/07/24 05/14/25 Rx .COMPLEX #100 tabs semaglutide 2 mg/dose (8 mg/3 mL) See Rx Instructions .Route 12/27/24 05/14/25 Rx subcutaneous pen injector (Ozempic) .COMPLEX #9 mL trazodone 100 mg tablet See Rx Instructions .Route 01/11/25 05/14/25 Rx .COMPLEX #50 tabs blood sugar diagnostic (OneTouch #400 strips 01/23/25 05/14/25 Rx Ultra Test strips) Farxiga 5 mg tablet (dapagliflozin 5 mg PO DAILY #90 tabs 01/25/25 05/14/25 Rx propanediol) pen needle, diabetic 32 gauge x #400 ea 01/25/25 05/14/25 Rx gabapentin 600 mg tablet See Rx Instructions .Route 01/30/25 05/14/25 Rx .COMPLEX #300 tabs pantoprazole 40 mg tablet,delayed See Rx Instructions .Route 02/07/25 05/14/25 Rx release .COMPLEX #100 tabs insulin lispro 100 unit/mL See Rx Instructions .Route 02/22/25 05/14/25 Rx subcutaneous pen (Humalog KwikPen .COMPLEX #75 mL (U-100) Insulin) albuterol sulfate 90 mcg/actuation See Rx Instructions .Route 03/13/25 05/14/25 Rx aerosol inhaler .COMPLEX #25.5 grams fluoxetine 20 mg tablet See Rx Instructions .Route 03/23/25 05/14/25 Rx .COMPLEX #90 tabs insulin glargine 100 unit/mL (3 See Rx Instructions .Route 03/27/25 05/14/25 Rx mL) subcutaneous pen (Lantus .COMPLEX #75 mL Solostar U-100 Insulin) pramipexole 1 mg tablet 1 mg PO QHS #100 tabs 04/21/25 05/14/25 Rx hydrocodone 5 mg-acetaminophen 325 1 tablet PO Q6H PRN pain #60 tabs 05/05/25 05/14/25 Rx mg tablet tizanidine 4 mg tablet 4 mg PO QHS PRN muscle spasticity 05/05/25 05/14/25 Rx #100 tabs bumetanide 2 mg tablet See Rx Instructions .Route 05/09/25 05/14/25 Rx .COMPLEX #100 tabs ergocalciferol (vitamin D2) 1,250 See Rx Instructions .Route 05/09/25 05/14/25 Rx mcg (50,000 unit) capsule (Vitamin .COMPLEX #15 caps D2) lancets 30 gauge (OneTouch Delica #400 ea 05/09/25 05/14/25 Rx Plus Lancet) nitroglycerin 0.4 mg sublingual See Rx Instructions .Route 05/09/25 05/14/25 Rx tablet .COMPLEX #125 tabs Allergies Allergy/AdvReac Type Severity Reaction Status Date / Time No Known Allergies Allergy Verified 05/14/25 15:56 Vital Signs Vital Signs - 24 hr 05/14/25 09:29 05/14/25 10:14 05/14/25 10:15 Temperature 37.9 C H Pulse Rate 113 H 129 H Respiratory Rate 16 Blood Pressure 119/59 L Pulse Oximetry 93 93 Oxygen Delivery Room Air Nasal Cannula Oxygen Flow Rate 2.5 Exam Narrative: GENERAL: Morbidly obese elderly male with supplemental oxygen use, no acute distress noted HEAD: Normocephalic, atraumatic. ENT:? Mucous membranes moist. CHEST: Diminished with crackles throughout HEART: Mildly tachycardic rate with regular rhythm. ? Normal peripheral pulses. ABDOMEN: Soft, obese, mild generalized tenderness without rebound or guarding, normal bowel sounds noted. EXTREMITIES: Normal range of motion. Bilateral lower extremity edema with erythema due to PVD and some small fluid filled blisters on left anterior lower leg. SKIN: Warm dry normal color NEURO: Awakens easily to voice, mostly oriented, moves all extremities normally, no focal defect noted H&P: Results Labs Labs: Short CBC 05/14/25 Range/Units 09:50 WBC 18.4 H (4.5-10.0) K/mm3 Hgb 13.9 L (14.0-18.0) g/dL Hct 46.1 (42.0-52.0) % Plt Count 176 (150-375) k/mm3 BMP 05/14/25 09:50 Sodium 139 Potassium 3.9 Chloride 102 Carbon Dioxide 27 BUN 44 H Creatinine 2.13 H Glucose 189 H Calcium 9.0 Cardiac Enzymes 05/14/25 Range/Units 09:50 Troponin I 0.098 H* (0.000-0.034) ng/mL Liver Function 05/14/25 Range/Units 09:50 Total Bilirubin 0.9 (0.2-1.3) mg/dL AST 27 (17-59) U/L ALT 22 (6-50) U/L Alkaline Phosphatase 77 (38-126) U/L Albumin 3.9 (3.5-5.1) g/dL Urine 05/14/25 Range/Units 10:11 Urine Color Dark yellow (Yellow) Urine Appearance Cloudy H (Clear) Urine pH 5.0 (5.0-9.0) Ur Specific [place] 1.026 (1.001-1.035) Urine Protein 2+ H (Negative) mg/dL Urine Glucose (UA) Trace H (Negative) mg/dL ABG ABG results: PH 7.371, pCO2 41.8, PO2 of 74.3, HC03 23.7 Attestation: I personally reviewed and interpreted this ABG as follows: Interpretation: Balanced ABG with mild hypoxemia on 36% FiO2 Pulse Oximetry SpO2 results: 93% on 2.5 LPM nasal cannula Attestation: I personally reviewed and interpreted this pulse oximetry as follows: Interpretation: Patient continues to require oxygen supplementation ECG Attestation: I personally reviewed and interpreted this ECG as follows: ECG completion date: 05/14/25 ECG completion time: 13:19 Prior ECG tracings: not available for review Interpretation: Sinus tachycardia rate of 124, VT interval 185, QRS duration 116, QTC 457, QRS axis -49 left axis deviation, ST abnormalities in the inferior and anterior/lateral leads Imaging Chest x-ray: Radiologist's impression: Examination: XR chest 1V portable Clinical History: AMS, cough, fever Comparison: 10/22/2021 Technique: Portable AP Findings: Right chest Mediport. Cardiomegaly. Poor visualization left hemidiaphragm. Increased diffuse interstitial markings. No acute bony abnormality. IMPRESSION: 1. Interstitial pulmonary edema and/or pneumonitis. 2. Left basilar atelectasis and/or airspace disease. Reviewed, dictated and finalized at location R. CT scan - abdomen: Radiologist's impression: CT ABDOMEN AND PELVIS WITHOUT CONTRAST Clinical History: septic; UTI, repeated with tighter straps and repositioning Comparison: 09/24/2021 Technique: Unenhanced axial images lung bases to symphysis pubis Coronal, sagittal reformats CT images acquired with automatic exposure control for dose reduction DLP: 3856 mGy-cm Findings: Without intravenous contrast, sensitivity for detecting visceral parenchymal abnormalities decreased. Portions of left hemiabdomen excluded from images Lung bases: Dependent atelectasis. Visualized heart and pericardium: Coronary artery calcification. Liver: Enlarged. Steatosis. Gallbladder: Removed. Spleen: Unremarkable. Pancreas: Atrophy. Adrenal glands: Unremarkable. Kidneys: Right kidney- No hydronephrosis. No renal stones. Left kidney- No hydronephrosis. No renal stones. Distal esophagus/stomach: Unremarkable. Small bowel loops: Normal caliber and wall thickness. Colon: Diverticula. Normal caliber and wall thickness. Appendix not seen. Nodes: Prominent partially calcified nodes right groin. Peritoneum: No ascites. No free intraperitoneal air. Urinary bladder: Mild wall thickening but under distended. Prostate: Unremarkable. Bones: No acute bony abnormality. Soft tissues: Midline abdominal wall hernia mesh. Unopacified abdominal aorta: No aneurysmal dilatation. IMPRESSION: 1. No acute findings. Reviewed, dictated and finalized at location R. Assessment and Plan Assessment and plan (1) Sepsis: Code(s): A41.9 - Sepsis, unspecified organism Status: Acute Assessment and Plan: -UTI with tachycardia, tachypnea, increased oxygen demand, altered mental status and fever -Cefepime and vancomycin started in ER and will be continued -No prior urine culture available but prior buttock wound culture with ESBL Klebsiella and MRSA (2) Elevated troponin: Code(s): R79.89 - Other specified abnormal findings of blood chemistry Status: Acute Assessment and Plan: -Mildly elevated troponin without chest pain -Prior cardiac history significant -Cardiology consulted by ER, states that troponin elevation likely due to sepsis and not MT -Continue aspirin and clopidogrel (3) Acute and chronic respiratory failure ([id number]): Code(s): J96.20 - Acute and chronic respiratory failure, unspecified whether with hypoxia or hypercapnia Status: Acute Assessment and Plan: -Patient uses oxygen with BiPAP at night but not during the day -Noted to require oxygen for adequate saturations in ER and up to 6 LPM required after admission -CXR indicative of pulmonary edema or pneumonites with left basilar atelectasis or airspace disease -BiPAP with 4 LPM use at home per prior Pulmonology notes -ABG drawn after change to home BiPAP from AutoPAP -Pulmonology consult ordered (4) Altered mental status: Code(s): R41.82 - Altered mental status, unspecified Status: Acute Assessment and Plan: -Mostly resolved it seems, family not present to discuss patient's presentation and they did not answer the phone -Likely metabolic encephalopathy from UTI though hypercapnea or hypoxia as cause is possible as well (5) Acute UTI: Code(s): N39.0 - Urinary tract infection, site not specified Status: Acute Assessment and Plan: -UA with >100 WBC with WBC clumps, 1+ bacteria, 2+ leukocyte esterase -Cefepime and vancomycin started in ER, will continue -No prior urine culture present -Patient had fever and elevated WBC 18.4 on admit (6) Hypomagnesemia: Code(s): E83.42 - Hypomagnesemia Status: Acute Assessment and Plan: -Magnesium 1.2 on admission, prior history of low magnesium -3 grams repleted over 3 hours -Repeat labs in AM (7) Congestive heart failure: Qualifiers: Heart failure chronicity: unspecified Heart failure type: unspecified Qualified Code(s): I50.9 - Heart failure, unspecified Code(s): I50.9 - Heart failure, unspecified Status: Acute Assessment and Plan: -Hypoxia with new oxygen demand and CXR findings of interstitial pulmonary edema -Dose of Bumex 2 mg ordered and will plan to continue this daily medication -Monitor renal function -Echo ordered, recent Cardiology note scanned into the record from [facility] -Cardiology consulted by ER due to elevated troponin (8) CKD (chronic kidney disease): Code(s): N18.9 - Chronic kidney disease, unspecified Status: Chronic Assessment and Plan: -Stable/chronic renal function noted on admit -One liter IV fluids given in ER, no further since pulmonary edema also noted (9) Type 2 diabetes mellitus with hyperglycemia: Qualifiers: Diabetes mellitus intermediate insulin use: with intermediate use Qualified Code(s): E11.65 - Type 2 diabetes mellitus with hyperglycemia; Z79.4 - baller tender (current) use of insulin Code(s): E11.65 - Type 2 diabetes mellitus with hyperglycemia Status: Chronic Assessment and Plan: -HGB A1c 8.9 on admit -Hold Farxiga since it is non-formulary and states no substitutions on RX unless family can bring in -Diabetic diet ordered -ACHS finger stick blood glucose with high dose SSI -Reduce home insulin dosing but prepare to titrate dosing based on fingerstick results (10) Sleep apnea: Code(s): G47.30 - Sleep apnea, unspecified Status: Chronic Assessment and Plan: -BiPAP settings with 4 LPM bleed in per Pulmonology notes in 2021 -Patient did not know settings - did not answer phone call -ABG balanced after these settings applied Quality VTE Prophylaxis VTE prophylaxis: pharmacologic ordered (Lovenox 40 mg BID (due to weight)) Due to a high probability of clinically significant, life threatening deterioration, the patient required my highest level of preparedness to intervene emergently and I personally spent this critical care time directly and personally managing the patient. This critical care time included obtaining a history; examining the patient; pulse oximetry; ordering and review of studies; arranging urgent treatment with development of a management plan; evaluation of patient's response to treatment; frequent reassessment; and discussions with other providers. It was exclusive of separately billable procedures and treating other patients and teaching time. Please see Assessment and Plan section and the rest of the note for further information on patient assessment and treatment. Critical Care time: 45 minutes Total time spent with patient 125 minutes Hospitalist MIPS Advance Care Plan I have confirmed that the patient's Advanced Care Plan is present, code status is documented, or surrogate decision maker is listed in patient medical record.: Yes Medication Reconciliation I have utilized all available resources to obtain, update and review the patients current medications (includes all prescriptions, OTC, herbals, cannabis, and nutritional supplements).: Yes
--- NOTE | 2025-05-14 13:14 | ECG_ITS ---
Test Date: 2025-05-14 13:19:56 Measurements Intervals [place] Rate: 124 P: 185 IN: 185 QRS: -49 QRSD: 116 T: 75 QT: 318 QTc: 457 Interpretive Statements ATRIAL FLUTTER/TACHYCARDIA WITH RAPID VENTRICULAR RESPONSE POSSIBLE RIGHT VENTRICULAR CONDUCTION DELAY LOW QRS VOLTAGE IN PRECORDIAL LEADS INFERIOR INFARCT, AGE INDETERMINATE EXTENSIVE ANTERIOR INFARCT, AGE INDETERMINATE BASELINE ARTIFACT- I, II, III, AVR, AVL, AVF, V1 ABNORMAL ECG Compared to ECG 05/14/2025 09:36:39 NO SIGNIFICANT CHANGE Electronically Signed On 05-14-2025 14:00:34 CDT by Hema Emery D.O.
[2025-05-14 13:37] LABS: Magnesium 1.2 mg/dL (1.6-2.3)
[2025-05-14 14:04] LABS: Troponin I 0.125 ng/mL (0.000-0.034)
[2025-05-14] MEDS: MAGNESIUM SULFATE 3GM/D5W100ML 3 GM/100 ML BAG IVPB (14:41)
--- NOTE | 2025-05-14 15:41 | ADMGEN ---
This patient, Pascual Kowalski, was admitted to IMU Room 214-01 at 1533. Patient/family oriented to hospital policies and general routines including ID bracelet, bed and alarms, visiting hours, pain management, procedures, bathroom and other care routines, personal items, smoking policy, room service/diet, and visiting hours. Information on how to activate the Rapid Response Team has been discussed. Patient/Family are encouraged to report perceived risks to care and to ask questions if they do not understand what they are told or what they should do.
[2025-05-14 15:51] LABS: Hemoglobin A1C 8.9 % (<5.7)
[2025-05-14 17:20] LABS: Troponin I 0.187 ng/mL (0.000-0.034)
[2025-05-14] MEDS: INSULIN ASPART (*BKC) 100 UNITS/ML SUB-Q (18:21)
[2025-05-14] MEDS: INSULIN GLARGINE (*BKC) 100 UNITS/ML 60 UNITS SUB-Q (20:17)
[2025-05-14] MEDS: METOPROLOL TARTRATE 12.5 MG TABLET PO (20:17)
[2025-05-14] MEDS: ENOXAPARIN 40 MG/0.4 ML SYRINGE SUB-Q (20:17)
[2025-05-14] MEDS: BUMETANIDE 1 MG TABLET 2 MG PO (20:17)
[2025-05-14] MEDS: IPRATROPIUM 0.5 MG/ALBUTEROL SULFATE 2.5 MG (BASE) AMPUL.NEB 3 ML INHALATION (21:24)
[2025-05-14 22:37] LABS: Alveolar/Arterial O2 Gradient 133.9 mmHg; Carboxyhemoglobin 1.8 % THb (0-2.0); Fractional Inspired Oxygen 36 %; HCO3 ABG 23.7 mEq/l (22.0-26.0); Methemoglobin ABG 0.3 %THb (0-1.5); Oxygen Content ABG 16.6 %vol (16.0-22.0); Oxygen Saturation ABG 94.6 % (95.0-100.0); PCO2 ABG 41.8 mmHg (35.0-45.0); PO2 ABG 74.3 mmHg (80.0-100.0); PO2 FiO2 Ratio Arterial Blood 2.06 %; Reduced Hemoglobin 5.2 %THb (0-5.0)
[2025-05-14 22:43] LABS: Modified Allen's Test Pass; Site Drawn RIGHT RADIAL
[2025-05-14] MEDS: ACETAMINOPHEN 500 MG TABLET 1000 MG PO (23:56)
[2025-05-15] VITALS (36 sets, daily range): BP systolic 102–148; BP diastolic 53–67; PULSE 88–114; RESP 16–24; TEMP 37.1–38.8; O2SAT 86–99
--- NOTE | 2025-05-15 | ECHO_ITS ---
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 Staff Referring Physician: Jaqui Mahan NP Floral Artist: Brodie Rivas III Attending Provider: Carla Connors Contrast/Agitated Saline Contrast/Ag. Saline: Definity Amount: 2.00 ml Administered By: Brodie Rivas III Existing IV Access: Yes IV Access Condition: patent with no signs of infiltration Summary 1. Left ventricular systolic function is normal, estimated at 30-35. 2. The left ventricular diastolic function is abnormal. 3. The apex, and anteroseptal wall are hypokinetic. 4. Technically difficult study. Left Ventricle Left ventricular chamber dimension is normal. Left ventricular systolic function is normal, estimated at 30-35. There is no increased left ventricular wall thickness. The left ventricular diastolic function is abnormal. The apex, and anteroseptal wall are hypokinetic. Right Ventricle Right ventricular chamber dimension is normal. Right ventricular systolic function is normal. Left Atria Left atrial chamber dimension is normal. Right Atria Right atrial chamber dimension is normal. Aortic Valve The aortic valve is not well visualized. There is no aortic valve sclerosis. There is no aortic valve stenosis. There is no aortic valve regurgitation. Pulmonic Valve The pulmonic valve is not well visualized. There is no pulmonic valve stenosis. There is no pulmonic regurgitation. Mitral Valve The mitral valve has normal leaflets. There is no mitral valve stenosis. There is no mitral valve regurgitation. There is mild mitral valve calcification. Tricuspid Valve The tricuspid valve leaflets are normal. There is no significant tricuspid valve stenosis. There is no tricuspid valve regurgitation. Pericardium/Pleural The pericardium appears normal. There is no pericardial effusion. Inferior Vena Cava Not well visualized inferior vena cava. Aorta The aortic root size at the sinus of Valsalva is normal. The prox ascending aorta size is normal. Left Ventricular Outflow Tract Name Value Normal LVOT 2D LVOT Diameter 2.4 cm LVOT Doppler LVOT Peak Velocity 113 cm/s LVOT Peak Gradient 5 mmHg LVOT Mean Gradient 3 mmHg LVOT VTI 21 cm LVOT VTI/AV VTI Ratio 0.6 LVOT Stroke Volume 92 ml LVOT CO 9.9 l/min LVOT CI 3.0 l/min/m2 Pulmonic Valve Name Value Normal PV Doppler PV Peak Velocity 144 cm/s PV Peak Gradient 8 mmHg Mitral Valve Name Value Normal MV Doppler MV Peak Gradient 13 mmHg MV Mean Gradient 7 mmHg MV Area (Cont Eq VTI) 2.6 cm2 MV Diastolic Function MV E Peak Velocity 124 cm/s MV A Peak Velocity 168 cm/s MV E/A 0.7 MV Decel Time (PW) 163 ms MV Annular TDI MV E/e' (Septal) 38.6 MV E/e' (Lateral) 17.8 MV E/e' (Average) 28.2 Tricuspid Valve Name Value Normal TV Annular TDI TV Lateral Nicole s' Velocity 12.4 cm/s >=9.5 Aortic Valve Name Value Normal AV Doppler AV Peak Velocity 210 cm/s AV Peak Gradient 18 mmHg AV Mean Gradient 11 mmHg AV VTI 35 cm AV Area (Cont Eq VTI) 2.6 cm2 >=3.0 AV Area (Cont Eq Clem) 2.4 cm2 AV DI (Clem) 0.54 AV Regurgitation 2D LVOT Area 4.4 cm2 Ventricles Name Value Normal LV Dimensions 2D/MM IVS Diastolic Thickness (2D) 0.9 cm 0.6-1.0 LVID Diastole (2D) 6.1 cm 4.2-5.8 LVIW Diastolic Thickness (2D) 0.8 cm 0.6-1.0 LVID Systole (2D) 4.8 cm 2.5-4.0 LVOT Diameter 2.4 cm LV Mass (2D Cubed) 203.80 g 88.00-224.00 LV Mass Index (2D Cubed) 63 g/m2 49-115 Relative Wall Thickness (2D) 0.26 <=0.42 LV Fractional Shortening/Ejection Fraction 2D/MM LV Fractional Shortening (2D) 21 % 25-43 LV EF (2D Teichholz) 43 % LV Diastolic Volume (4C MOD) 172 ml LV EF (4C MOD) 39 % LV Diastolic Volume (2C MOD) 120 ml LV EF (2C MOD) 39 % LV Diastolic Volume (BP MOD) 152 ml 62-150 LV Diastolic Volume Index (BP MOD) 47 ml/m2 34-74 LV Systolic Volume (BP MOD) 87 ml 21-61 LV Systolic Volume Index (BP MOD) 27 ml/m2 11-31 LV EF (BP MOD) 43 % 52-72 LV Diastolic Length (4C) 9.5 cm LV Systolic Length (4C) 8.5 cm LV Stroke Volume (4C MOD) 68 ml Atria Name Value Normal LA Dimensions LA Volume (4C A-L) 56 ml LA Volume (BP A-L) 57 ml Wall Motion Scoring Report Signatures
[2025-05-15] MEDS: IPRATROPIUM 0.5 MG/ALBUTEROL SULFATE 2.5 MG (BASE) AMPUL.NEB 3 ML INHALATION ×4 (01:29→20:03)
--- NOTE | 2025-05-15 02:00 | PCRCNOTE ---
Pt removed from BIPAP due to vomiting.
[2025-05-15] MEDS: ONDANSETRON INJ 4 MG/2 ML VIAL IV PUSH (02:23)
[2025-05-15 03:16] LABS: Alveolar/Arterial O2 Gradient 214.4 mmHg; Carboxyhemoglobin 1.7 % THb (0-2.0); Fractional Inspired Oxygen 52 %; HCO3 ABG 27.3 mEq/l (22.0-26.0); Methemoglobin ABG 0.3 %THb (0-1.5); Oxygen Content ABG 16.6 %vol (16.0-22.0); Oxygen Saturation ABG 94.1 % (95.0-100.0); PO2 ABG 83.5 mmHg (80.0-100.0); PO2 FiO2 Ratio Arterial Blood 1.61 %; Reduced Hemoglobin 5.2 %THb (0-5.0)
[2025-05-15 03:26] LABS: PCO2 ABG 65.1 mmHg (35.0-45.0)
[2025-05-15 03:27] LABS: Liters per Minute 8.0 LPM; Modified Allen's Test Pass; Site Drawn RIGHT RADIAL
[2025-05-15] MEDS: BUMETANIDE INJ 1 MG/4 ML VIAL IV PUSH (03:41)
--- NOTE | 2025-05-15 04:11 | PM.CCN ---
Critical Care Event Note Summary Code activated: No Narrative: This case had a high probability of a clinically significant, sudden, or life threatening deterioration of this patient's condition which required my full and direct attention, intervention and personal management. This is a 73-year-old male patient who was admitted the hospital for UTI, sepsis altered mental status changes and acute on chronic respiratory failure with hypoxia. He had been placed on a BiPAP and appeared to be doing well. 0250 IMU called stating that the patient was nauseated and had emesis. A chest x-ray has been ordered. Per my interpretation. Increased left-sided pulmonary edema versus consolidation. The patient is currently on antibiotics. He has been febrile. We are unable to place the BiPAP due to the nausea and vomiting. After much discussion with respiratory, it was decided that we place the patient on high-flow. Her saturations him up to 95%. Repeat ABGs show hypercapnia, hypoxia, and acidosis. Although a BiPAP would be the best option for this patient we are unable to place at this time to nausea vomiting. The patient is arousable. He was also given an extra dose of Bumex and Solu-Medrol. He has hypoventilation syndrome. The patient is full code. Repeat ABGs in 1 hour. 0610 patient is awake and talkative. He is no longer nauseated asking for some water. Patient's ABGs have got worse his pH is 7.209 and a CO2 70.4 his PO2 71.5. His bicarb is 27.5. I explained to him that he needs to be back on the BiPAP and we would hold off on drinking any water until his ABGs have improved. Critical care time: 30 - 74 mins
[2025-05-15 04:37] LABS: Alveolar/Arterial O2 Gradient 305.8 mmHg; Fractional Inspired Oxygen 70 %; HCO3 ABG 26.9 mEq/l (22.0-26.0); Oxygen Content ABG 17.4 %vol (16.0-22.0); Oxygen Saturation ABG 97.8 % (95.0-100.0); PO2 ABG 125.0 mmHg (80.0-100.0); PO2 FiO2 Ratio Arterial Blood 1.79 %
[2025-05-15 04:44] LABS: Modified Allen's Test Pass; PCO2 ABG 63.5 mmHg (35.0-45.0); Site Drawn RIGHT RADIAL
[2025-05-15 04:45] LABS: Liters per Minute 40.0 LPM
[2025-05-15 04:45] LABS: Hematocrit 39.3 % (42.0-52.0); Hemoglobin 11.6 g/dL (14.0-18.0); Immature Granulocyte Percent A 1.2 % (0-0.5); Lymphocytes Absolute Auto 1.26 K/mm3 (0.9-3.2); Mean Corpuscular HGB Conc 29.5 g/dl (32-36); Mean Corpuscular Hemoglobin 27.4 pg (26-34); Mean Corpuscular Volume 92.7 fl (80-100); Nucleated Red Blood Cells Absolute Auto 0.000 K/mm3 (0.0-0.012); Nucleated Red Blood Cells Perc 0.0 % (0.0-0.2); Platelet Count Result 150 k/mm3 (150-375); Red Blood Count 4.24 M/mm3 (4.6-6.20); White Blood Count 22.8 K/mm3 (4.5-10.0)
[2025-05-15 05:03] LABS: Alanine Aminotransferase 18 U/L (6-50); Albumin Level 2.9 g/dL (3.5-5.1); Alkaline Phosphatase 68 U/L (38-126); Anion Gap 5 mmol/L (4-12); Aspartate Amino Transferase 42 U/L (17-59); Bilirubin,Total 0.9 mg/dL (0.2-1.3); Blood Urea Nitrogen 46 mg/dL (9-20); Calcium 8.3 mg/dL (8.4-10.2); Carbon Dioxide 28 mmol/L (22-30); Chloride 102 mmol/L (98-107); Estimated CRCL calculation 41 ml/min; Estimated Glomerular Filt Rate 25; Glucose 238 mg/dL (65-110); Magnesium 1.8 mg/dL (1.6-2.3); Potassium 4.0 mmol/L (3.4-5.0); Sodium 135 mmol/L (137-145); Total Protein 5.8 g/dL (6.3-8.2)
[2025-05-15 05:23] LABS: Anisocytosis 1+; Ovalocytes 1+
[2025-05-15 05:24] LABS: Schistocytes None Seen
[2025-05-15 06:05] LABS: Alveolar/Arterial O2 Gradient 132.7 mmHg; Carboxyhemoglobin 1.6 % THb (0-2.0); Fractional Inspired Oxygen 40 %; HCO3 ABG 27.5 mEq/l (22.0-26.0); Methemoglobin ABG 0.3 %THb (0-1.5); Oxygen Content ABG 16.3 %vol (16.0-22.0); Oxygen Saturation ABG 90.3 % (95.0-100.0); PO2 ABG 71.5 mmHg (80.0-100.0); PO2 FiO2 Ratio Arterial Blood 1.79 %; Reduced Hemoglobin 8.5 %THb (0-5.0)
[2025-05-15 06:15] LABS: Modified Allen's Test Pass; PCO2 ABG 70.4 mmHg (35.0-45.0); Site Drawn RIGHT RADIAL
[2025-05-15 06:16] LABS: Liters per Minute 40.0 LPM
[2025-05-15] MEDS: INSULIN ASPART (*BKC) 100 UNITS/ML SUB-Q ×2 (08:36→15:35)
[2025-05-15] MEDS: INSULIN ASPART (*BKC) 100 UNITS/ML 10 UNITS SUB-Q ×3 (08:36→17:52)
[2025-05-15 09:17] LABS: Alveolar/Arterial O2 Gradient 91.7 mmHg; Fractional Inspired Oxygen 36 %; HCO3 ABG 26.6 mEq/l (22.0-26.0); Oxygen Content ABG 17.4 %vol (16.0-22.0); Oxygen Saturation ABG 93.4 % (95.0-100.0); PO2 ABG 83.6 mmHg (80.0-100.0); PO2 FiO2 Ratio Arterial Blood 2.32 %
[2025-05-15 09:20] LABS: Modified Allen's Test Pass; PCO2 ABG 70.2 mmHg (35.0-45.0); Site Drawn LEFT RADIAL
[2025-05-15] MEDS: metroNIDAZOLE 500 MG/ISO 100ML 500 MG/100 ML BAG 100 MG IVPB ×3 (09:40→21:20)
[2025-05-15 10:11] LABS: NT Pro B Type Natriuretic Pept 4930 pg/mL (19.9-100)
[2025-05-15] MEDS: ENOXAPARIN 40 MG/0.4 ML SYRINGE SUB-Q ×2 (10:17→21:15)
[2025-05-15] MEDS: CEFEPIME 2 GM in SODIUM CHLORIDE 0.9% IV 50 ML 100 ML IVPB ×2 (10:18→20:30)
[2025-05-15] MEDS: BUMETANIDE INJ 2.5 MG/10 ML VIAL 2 MG IV PUSH ×2 (10:19→17:52)
[2025-05-15] MEDS: DOXYCYCLINE IV 100 MG in SODIUM CHLORIDE 0.9% IV 100 ML IVPB ×2 (10:19→23:51)
--- NOTE | 2025-05-15 10:22 | PM.CNPUL ---
Assessment and Plan Assessment and plan (1) Acute on chronic respiratory failure with hypoxia and hypercapnia: Code(s): J96.21 - Acute and chronic respiratory failure with hypoxia; J96.22 - Acute and chronic respiratory failure with hypercapnia Status: Acute Assessment and Plan: Patient with morbid obesity, BMI 66.4, coronary artery disease status post stents and TAVR on 03/2020, CKD with baseline creatinine 1.5-2, obstructive sleep apnea requiring BiPAP 22/16 with 4 L bleed in. Patient is maintained on BiPAP no rate, pressures 22/16 and 4 L bleed in. TSH on 05/15/2025 2.16. Most recent download in the chart: Download 12/25/2023 through 03/23/2020 for through [employer]. Patient is on BiPAP spontaneous rate, pressures 22/16. Usage days greater than or equal to 4 hours is 88%. Average usage on days used is 5 hours and 49 minutes. AHI 18.2, apnea index 17.9, hypopnea index 0.3. Median leak 29.1, 95th percentile leak 62.4, maximal leak 98.5. Central apnea index 2.1. Median tidal volume 317, median respiratory rate 13. Median minute ventilation 4.8. I interpret this download as adequate compliance, high AHI, high leak, low tidal volume, low minute ventilation. Patient presents now with altered mental status, initial blood gas on BiPAP 22/16 with a rate of 16 7.37/42/74. patient then had an emesis episode with the mask on and was taken off BiPAP with a blood gas on 8 L 7.24/65/84. He improved and was placed back on BiPAP rate of 16, pressures 22/16 and 36% FiO2 and after 3 hours his blood gas was 7.20/70/84. When I enter the room the patient had a high leak and said the mask and machine were uncomfortable. switched him to a noninvasive ventilator mode with the AVAPS mode and adjusted the settings to come for resulting in a rate of 20, tidal volume 550, EPAP 10, minimal inspiratory pressure 11, maximal inspiratory pressure 25, inspiratory time 1.0, rise of 5 which is the slowest and 40% FiO2. Patient said this was comfortable. 05/15/25: Plan: Patient is awake and communicative. He does doze off but says he is just tired and taking a nap. I will check an ABG after 1 hour to reassess his hypercarbic respiratory failure. Patient's ABG deteriorated after he had a vomiting episode and he may have aspirated. Currently on vancomycin, cefepime both started 05/14/2025. Flagyl and doxycycline started 05/15/2025. I will send respiratory pathogen panel, urine for Legionella, urine for pneumococcal, serum for me mycoplasma IgM. He has no history of COPD, he is a never smoker, no history of asthma. He was given Solu-Medrol 60 mg IV x1 and I do not see a need to continue this medicine. He is empirically placed on DuoNebs q.6 hours and will continue this for the time being. Patient has peripheral edema and agree with as aggressive diuresis as tolerated by his cardiac and renal systems. Currently the patient is on Bumex 2 mg IV b.i.d.. He is positive 1 L since admission. His weight today is 198 lb. Will attempt to obtain a more recent download From patient's [employer], IV respiratory care, to assess patient's compliance. Discussed with respiratory therapist at the bedside, and Dr. Mays. Will follow with you. History of Present Illness History of Present Illness Consult date: 05/15/25 Chief complaint: Urosepsis, +trop Narrative: 05/15/2025: This is a new pulmonary consult for acute respiratory failure. 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 Regarding patient's coronary artery disease he had a PTCA of his LAD and RCA in 2009. Patient had a TAVR in March of 2020. Patient saw his planer operator Dr. Chappell on 04/13/2025 it said that he was stable with no problems from his coronary artery disease and TAVR perspective, the note said he has obstructive sleep apnea but office CPAP no medication changes were made. Regarding his follicular lymphoma stage I diagnosed in the groin on 01/25 with the ultrasounded gaudencio I did a biopsy completed chemotherapy and immuno therapy on . Saw his oncologist on 12/01/2024 with no evidence of recurrence. Followed in the Pulmonary Clinic in last seen on 03/28/2024 for obstructive sleep apnea on BiPAP and chronic respiratory failure related to obesity hypoventilation. States he is compliant with BiPAP 22/16 and 4 L bleed in. He was sleeping well and had no concerns. BiPAP was working fine. Nocturia couple times. He complained of a dry cough and was prescribed Claritin and Flonase. Very severe obstructive sleep apnea evidenced by overall AHI 106.6 on a sleep study in October 2021. This was followed by a BiPAP titration study recommending [id number] with 2L/min O2 bleed in October 2021. Download 12/25/2023 through 03/23/2020 for through [employer]. Patient is on BiPAP spontaneous rate, pressures 22/16. Usage days greater than or equal to 4 hours is 88%. Average usage on days used is 5 hours and 49 minutes. AHI 18.2, apnea index 17.9, hypopnea index 0.3. Median leak 29.1, 95th percentile leak 62.4, maximal leak 98.5. Central apnea index 2.1. Median tidal volume 317, median respiratory rate 13. Median minute ventilation 4.8. I interpret this download as adequate compliance, high AHI, high leak, low tidal volume, low minute ventilation. Recommend follow-up 6 months. 05/14/2025: Patient brought to the emergency room for altered mental status and lethargy. History obtained from the family. In the emergency department he was lethargic with a blood pressure 119/59, heart rate 113, temperature 100.2?, room air saturations 93%. He is placed on 2.5 L and his saturations were 93%. White blood cell count 90 2 minutes 18.4, creatinine 2.13, BUN 44, serum bicarb 27, BNP 1120, COVID, influenza, RSV RT PCR assay negative, UA was consistent with a UTI. Patient had a CT scan of abdomen and pelvis which showed atelectasis in the bases but no pleural effusions, focal consolidations or interstitial lung disease. patient given IV fluids and admitted to the hospital with a urinary tract infection. He was more awake and communicative when talking to the hospitalist who admitted him. Patient was placed on his BiPAP settings of 22/16 and 4 L bleed in and had an ABG of 7.37/42/74. 05/15/25: About 5 hours later the patient vomited with his mask on, and was taken off BiPAP and placed on 8 L nasal cannula the blood gas of 7.24/65/84. The patient was then placed on Airvo 40 L, 40% with blood gas of 7.21/70/72. Patient was then placed back on his BiPAP 22/16 with 36% FiO2 and after 3 hours his blood gas was 7.20/70/84. When air new entered the room the patient was awake, he knew his name, show me 2 fingers and wiggled his toes. He denied being in pain and said he had no infectious complaints prior to coming to the hospital. He denied fever, chills, phlegm production or hemoptysis. He states he wears a BiPAP machine at night but does not know his DME company. Says he uses 4 L at night bleed in. The patient was on BiPAP rate of 16 breathing 20, pressures 22/16 with a tidal volume of 531 and minute ventilation of 8.7. His leak was 107 and his saturations were 92. The patient said this machine was not as comfortable as his home machine and I switched him to a noninvasive ventilator mode with the AVAPS mode and adjusted the settings to come for resulting in a rate of 20, tidal volume 550, EPAP 10, minimal inspiratory pressure 11, maximal inspiratory pressure 25, inspiratory time 1.0, rise of 5 which is the slowest and 40% FiO2. Patient said this was comfortable. DATA 05/14/25: CT ABDOMEN AND PELVIS WITHOUT CONTRAST Clinical History: septic; UTI, repeated with tighter straps and repositioning Comparison: 09/24/2021 Technique: Unenhanced axial images lung bases to symphysis pubis Coronal, sagittal reformats CT images acquired with automatic exposure control for dose reduction DLP: 3856 mGy-cm Findings: Without intravenous contrast, sensitivity for detecting visceral parenchymal abnormalities decreased. Portions of left hemiabdomen excluded from images Lung bases: Dependent atelectasis. Visualized heart and pericardium: Coronary artery calcification. Liver: Enlarged. Steatosis. Gallbladder: Removed. Spleen: Unremarkable. Pancreas: Atrophy. Adrenal glands: Unremarkable. Kidneys: Right kidney- No hydronephrosis. No renal stones. Left kidney- No hydronephrosis. No renal stones. Distal esophagus/stomach: Unremarkable. Small bowel loops: Normal caliber and wall thickness. Colon: Diverticula. Normal caliber and wall thickness. Appendix not seen. Nodes: Prominent partially calcified nodes right groin. Peritoneum: No ascites. No free intraperitoneal air. Urinary bladder: Mild wall thickening but under distended. Prostate: Unremarkable. Bones: No acute bony abnormality. Soft tissues: Midline abdominal wall hernia mesh. Unopacified abdominal aorta: No aneurysmal dilatation. IMPRESSION: 1. No acute findings. 03/05/22 - Overnight oximetry on BiPAP 22/16 with 3L/min O2 - Time spent at or below 88% saturation was 33 min. He was advised to increase liter flow to 4L/min. 02/11/22 - Overnight oximetry on BiPAP 22/16 with 2L/min bleed in - time spent at or below 88% saturation was 54 min. 11/06/21 - BiPAP titration - BiPAP [id number] with 2L/min O2 bleed in was recommended. 10/29/21 - Split PSG - Very severe obstructive sleep apnea, overall AHI 106.6 events per hour. 09/24/2021: Echo Summary 1. Technically difficult study with limited views. Regional wall motion assessment limited despite definity contrast enhancement due to poor endomyocardial border definition. 2. Left ventricular chamber dimension is normal. 3. Left ventricular systolic function is normal, estimated at 55-60%. 4. The left ventricular diastolic function is grade I diastolic dysfunction. 5. There is no increased left ventricular wall thickness. 6. There is mild aortic valve stenosis with a peak velocity of 307.88 cm/s, mean gradient of 18 mmHg, and aortic valve area of 1.7cm2. 7. The aortic valve is not well visualized. Left Ventricle Technically difficult study with limited views. Regional wall motion assessment limited despite definity contrast enhancement due to poor endomyocardial border definition. Left ventricular chamber dimension is normal. Left ventricular systolic function is normal, estimated at 55-60%. There is no increased left ventricular wall thickness. The left ventricular diastolic function is grade I diastolic dysfunction. Right Ventricle Right ventricular chamber dimension is normal. Right ventricular systolic function is normal. Left Atria Left atrial chamber dimension is normal. Right Atria Right atrial chamber dimension is normal. RVSP equals 18 01/17/2021: EXAMINATION: CT chest abdomen pelvis w con EXAM DATE: 01/17/2021 10:08 INDICATION: Follicular lymphoma, inguinal region. TECHNIQUE: Spiral CT of the chest, abdomen and pelvis was performed following intravenous injection of 100 mL Omnipaque 350. Axial, coronal and sagittal images chest, abdomen and pelvis were reviewed. Coronal maximum intensity pixel images of chest reviewed. The dose-length product (DLP) for this examination was 1990.84 mGy-cm. The exposure was tailored according to patient size (auto mA exposure control), and iterative reconstruction (ASIR) was used as additional dose reduction technique. Comparison is made to prior examination from chest CT 07/21/2020, chest abdomen pelvis CT 01/18/2020. FINDINGS: CHEST: Previously seen bibasilar pneumonia has resolved. There are some residual linear opacities consistent with scarring or atelectasis. Some scattered left apical granulomata. Aortic stent or valve, new compared to prior study. There are no pleural or pericardial effusions. Tracheobronchial tree is patent. There is no mediastinal, hilar or axillary lymphadenopathy. There is no pneumothorax. Heart normal in size. Probable left coronary arterial stent. Right-sided portacatheter. ABDOMEN PELVIS: There is right inguinal lymph node with some coarse calcifications measuring 5.2 x 2.8 cm (previously about 6 x 3 cm), mild interval decrease in size compared to previous study. This is consistent with treated lymphoma. No other pathologically enlarged lymph nodes identified. Anterior abdominal wall mesh. The liver, spleen, adrenal glands and pancreas are unremarkable. Gallbladder is unremarkable. No biliary obstruction. Portal and splenic veins are patent. Kidneys enhance symmetrically. There is no hydronephrosis. The prostate is unremarkable. The bladder is unremarkable. The appendix is not positively visualized. There is no pericecal inflammatory change to suggest appendicitis. The stomach and small bowel are unremarkable. There is expected amount of colonic stool. No free intraperitoneal gas. There are no osteoblastic or osteolytic lesions identified. Moderate to severe lumbar disc disease. IMPRESSION: 1. Enlarged right inguinal lymph node, but with mild interval decrease in size. Treated lymphoma. 2. Chronic and surgical changes. Review of Systems Constitutional: Constitutional: Reports no additional constitutional complaints Eyes: Eyes: Reports no additional eye complaints ENT: Reports system reviewed and no additional complaints, except as documented Cardiovascular: Cardiovascular: Reports no additional cardiovascular complaints Respiratory: Respiratory: Reports no additional respiratory complaints Gastrointestinal: Gastrointestinal: Reports no additional gastrointestinal complaints Musculoskeletal: Musculoskeletal: Reports no additional musculoskeletal complaints Neurologic: Reports system reviewed and no additional complaints, except as documented Psychiatric: Psychiatric: Reports no additional psychiatric complaints Endocrine: Endocrine: Reports no additional endocrine complaints Hematologic/Lymphatic: Hematologic/Lymphatic: Reports no additional hematologic/lymphatic complaints Allergic/Immunologic: Allergic/Immunologic: Reports no additional allergic/immunologic complaints [facility]LY [facility] Past Medical History Medical History Obesity Chronic respiratory failure Kidney disease History of [place] (myocardial infarction) High cholesterol Wears glasses Weight gain Right knee DJD Left knee DJD CKD (chronic kidney disease) Pulmonary hypertension Moderate on echocardiogram from 2018 Follicular low grade B-cell lymphoma Morbid (severe) obesity due to excess calories Restless legs syndrome Unspecified background retinopathy Morbid obesity with BMI of 60.0-69.9, adult Acute respiratory failure Hospitalization June 06 through July 20, 2019 intubated 07/07/2019 through 07/14/2019 due to sepsis with septic shock, fluid overload, cellulitis with abscess of the left buttock Aortic stenosis severe on echocardiogram July 2019 Non-Hodgkin lymphoma He is a patient of Dr. Oliveira. Depression Diabetes Arthritis GERD (gastroesophageal reflux disease) Sleep apnea on BiPAP with O2 bleed in Hypertension Hypercholesterolemia CAD (coronary artery disease) of artery bypass graft With history of stents x4. Dr. Ribeiro Mitral valve prolapse CHF (congestive heart failure) Echocardiogram 02/27: EF of 35%, LVH, akinetic apical segment, Aortic valve not well visualized Peripheral neuropathy Cataract Surgical History Surgical History History of heart artery stent S/P TAVR (transcatheter aortic valve replacement) H/O arthroscopic knee surgery H/O inguinal hernia repair History of appendectomy H/O cardiac catheterization Hx of tonsillectomy Family History Family History Father Heart disease Diabetes mellitus Lung disease CHF (congestive heart failure) Atrial fibrillation Mother Breast cancer Dementia Son Aneurysm, aorta, abdominal, ruptured Acute myocardial infarction Other Arthritis Cerebrovascular accident Family history of obesity Hypertension Social History Social History Social History: Mr. Kowalski is and lives with his in [place], [place]. He designates his , Puja, as his surrogate decision maker and he wishes to be a full code. He denies alcohol, tobacco, and drug use. His primary care provider is Dr. Leo Doss. Smoking status: Never smoker Alcohol intake: never Substance use: never Do You Feel Safe in your Home?: Yes Lack of Transportation: No Lack of Food: Never True Current Housing: I Have Housing Concerned About Future Housing: No Difficulty Paying Gas/Electric Bills: No Difficulty Paying for Meds: No Currently Unemployed: No Education: Associate Degree Difficulty w/ Childcare or Family Care: No Gender identity (if verbalized by the patient): Male Sexual Orientation (if Verbalized by the Patient): Straight or Heterosexual Spiritual care concerns: No Agree to blood products: Yes Meds Home Medications and Allergies Home Medications ?Medication ?Instructions ?Recorded ?Confirmed ?Type aspirin 81 mg tablet,delayed 81 mg PO DAILY 05/31/19 05/14/25 History release diphenoxylate-atropine 2.5 1 tablet PO QID PRN Diarrhea 05/03/20 05/14/25 History mg-0.025 mg tablet (Lomotil) omega 1-znh-pzv-fish oil 1,200 mg 1 cap PO BID 09/24/21 05/14/25 History (144 mg-216 mg) capsule (Fish Oil) cyanocobalamin (vitamin B-12) 1,000 mcg PO QAM #30 tabs 10/03/21 05/14/25 Rx 1,000 mcg tablet (Vitamin B-12) blood-glucose meter (OneTouch #1 ea 12/05/21 05/14/25 Rx Ultra2 Meter kit) ferrous sulfate 325 mg (65 mg 325 mg PO .QOD 03/13/23 05/14/25 History iron) tablet loratadine 10 mg tablet (Claritin) 10 mg PO DAILY #90 tabs 03/28/24 05/14/25 Rx blood-glucose,zanjero,cont #1 ea 06/27/24 05/14/25 Rx (FreeStyle Michelle 3 [place]) diclofenac sodium 1 % topical gel 4 g topical QID #100 grams 08/31/24 05/14/25 Rx (Arthritis Pain (diclofenac)) fluticasone propionate 50 1 spray intranasal BID #48 grams 08/31/24 05/14/25 Rx mcg/actuation nasal spray,suspension (Flonase Allergy Relief) metoprolol tartrate 25 mg tablet 12.5 mg (1/2 x 25 mg) PO BID #180 09/05/24 05/14/25 Rx tabs triamcinolone acetonide 0.1 % See Rx Instructions .Route 10/11/24 05/14/25 Rx topical cream .COMPLEX #80 grams clopidogrel 75 mg tablet See Rx Instructions .Route 10/21/24 05/14/25 Rx .COMPLEX #100 tabs blood-glucose sensor (FreeStyle #13 ea 10/24/24 05/14/25 Rx Michelle 3 Sensor device) atorvastatin 80 mg tablet See Rx Instructions .Route 12/07/24 05/14/25 Rx .COMPLEX #100 tabs quetiapine 50 mg tablet See Rx Instructions .Route 12/07/24 05/14/25 Rx .COMPLEX #100 tabs semaglutide 2 mg/dose (8 mg/3 mL) See Rx Instructions .Route 12/27/24 05/14/25 Rx subcutaneous pen injector (Ozempic) .COMPLEX #9 mL trazodone 100 mg tablet See Rx Instructions .Route 01/11/25 05/14/25 Rx .COMPLEX #50 tabs blood sugar diagnostic (OneTouch #400 strips 01/23/25 05/14/25 Rx Ultra Test strips) Farxiga 5 mg tablet (dapagliflozin 5 mg PO DAILY #90 tabs 01/25/25 05/14/25 Rx propanediol) pen needle, diabetic 32 gauge x #400 ea 01/25/25 05/14/25 Rx gabapentin 600 mg tablet See Rx Instructions .Route 01/30/25 05/14/25 Rx .COMPLEX #300 tabs pantoprazole 40 mg tablet,delayed See Rx Instructions .Route 02/07/25 05/14/25 Rx release .COMPLEX #100 tabs insulin lispro 100 unit/mL See Rx Instructions .Route 02/22/25 05/14/25 Rx subcutaneous pen (Humalog KwikPen .COMPLEX #75 mL (U-100) Insulin) albuterol sulfate 90 mcg/actuation See Rx Instructions .Route 03/13/25 05/14/25 Rx aerosol inhaler .COMPLEX #25.5 grams fluoxetine 20 mg tablet See Rx Instructions .Route 03/23/25 05/14/25 Rx .COMPLEX #90 tabs insulin glargine 100 unit/mL (3 See Rx Instructions .Route 03/27/25 05/14/25 Rx mL) subcutaneous pen (Lantus .COMPLEX #75 mL Solostar U-100 Insulin) pramipexole 1 mg tablet 1 mg PO QHS #100 tabs 04/21/25 05/14/25 Rx hydrocodone 5 mg-acetaminophen 325 1 tablet PO Q6H PRN pain #60 tabs 05/05/25 05/14/25 Rx mg tablet tizanidine 4 mg tablet 4 mg PO QHS PRN muscle spasticity 05/05/25 05/14/25 Rx #100 tabs bumetanide 2 mg tablet See Rx Instructions .Route 05/09/25 05/14/25 Rx .COMPLEX #100 tabs ergocalciferol (vitamin D2) 1,250 See Rx Instructions .Route 05/09/25 05/14/25 Rx mcg (50,000 unit) capsule (Vitamin .COMPLEX #15 caps D2) lancets 30 gauge ([facility] ea 05/09/25 05/14/25 Rx Plus Lancet) nitroglycerin 0.4 mg sublingual See Rx Instructions .Route 05/09/25 05/14/25 Rx tablet .COMPLEX #125 tabs Allergies Allergy/AdvReac Type Severity Reaction Status Date / Time No Known Allergies Allergy Verified 05/14/25 15:56 Vital Signs Vital Signs - 24 hr 05/14/25 16:00 05/14/25 16:00 05/14/25 16:00 Temperature 37.1 C Pulse Rate 116 H 115 H Respiratory Rate 23 H Blood Pressure 132/71 Pulse Oximetry 93 96 Oxygen Delivery Nasal Cannula Oxygen Flow Rate 2 Fraction of Inspired Oxygen 05/14/25 18:00 05/14/25 19:10 05/14/25 19:29 Temperature Pulse Rate 116 H 114 H Respiratory Rate Blood Pressure Pulse Oximetry 90 94 Oxygen Delivery Nasal Cannula Autopap Oxygen Flow Rate 6 Fraction of Inspired Oxygen 05/14/25 19:30 05/14/25 20:00 05/14/25 20:00 Temperature 37.1 C Pulse Rate 114 H 117 H Respiratory Rate 20 20 Blood Pressure 124/40 L Pulse Oximetry 93 97 93 Oxygen Delivery Autopap CPAP Oxygen Flow Rate 4 5 Fraction of Inspired Oxygen 36 05/14/25 20:00 05/14/25 20:17 05/14/25 21:21 Temperature Pulse Rate 116 H 113 H 101 H Respiratory Rate 28 H Blood Pressure Pulse Oximetry 90 Oxygen Delivery BiPAP Oxygen Flow Rate Fraction of Inspired Oxygen 05/14/25 21:25 05/14/25 21:50 05/14/25 22:00 Temperature Pulse Rate 101 H 101 H 104 H Respiratory Rate 29 H 24 H Blood Pressure Pulse Oximetry Oxygen Delivery Oxygen Flow Rate Fraction of Inspired Oxygen 05/14/25 22:45 05/14/25 23:23 05/14/25 23:56 Temperature 38.6 C H 38.6 C H Pulse Rate 104 H 108 H Respiratory Rate 23 H 21 H Blood Pressure 115/47 L Pulse Oximetry 93 93 Oxygen Delivery BiPAP Oxygen Flow Rate Fraction of Inspired Oxygen 05/15/25 00:00 05/15/25 00:00 05/15/25 01:18 Temperature 38.8 C H Pulse Rate 107 H Respiratory Rate Blood Pressure Pulse Oximetry 94 Oxygen Delivery BiPAP Oxygen Flow Rate Fraction of Inspired Oxygen 36 05/15/25 01:27 05/15/25 01:29 05/15/25 01:50 Temperature Pulse Rate 99 101 H Respiratory Rate 18 20 Blood Pressure Pulse Oximetry 93 92 Oxygen Delivery BiPAP Nasal Cannula Oxygen Flow Rate 4 Fraction of Inspired Oxygen 05/15/25 01:58 05/15/25 02:00 05/15/25 02:50 Temperature Pulse Rate 99 Respiratory Rate Blood Pressure Pulse Oximetry 93 90 Oxygen Delivery Nasal Cannula High Flow Nasal Cannula Oxygen Flow Rate 4 8 Fraction of Inspired Oxygen 36 05/15/25 03:30 05/15/25 03:36 05/15/25 04:00 Temperature Pulse Rate 97 Respiratory Rate 20 Blood Pressure Pulse Oximetry 95 95 97 Oxygen Delivery High Flow Therapy with Na High Flow Therapy with Na High Flow Therapy with Na Oxygen Flow Rate 40 40 40 Fraction of Inspired Oxygen 70 70 70 05/15/25 04:00 05/15/25 04:24 05/15/25 04:25 Temperature 37.1 C Pulse Rate 99 102 H 103 H Respiratory Rate 20 20 Blood Pressure 148/67 H Pulse Oximetry 99 97 Oxygen Delivery High Flow Therapy with Na Oxygen Flow Rate 40 Fraction of Inspired Oxygen 70 05/15/25 05:00 05/15/25 05:00 05/15/25 06:00 Temperature Pulse Rate 103 H Respiratory Rate 20 Blood Pressure Pulse Oximetry 95 98 86 L Oxygen Delivery High Flow Therapy with Na High Flow Therapy with Na High Flow Therapy with Na Oxygen Flow Rate 40 40 40 Fraction of Inspired Oxygen 40 40 50 05/15/25 06:00 05/15/25 06:14 05/15/25 06:17 Temperature Pulse Rate 102 H 111 H Respiratory Rate 24 H Blood Pressure Pulse Oximetry 92 92 Oxygen Delivery BiPAP BiPAP Oxygen Flow Rate Fraction of Inspired Oxygen 36 05/15/25 08:15 05/15/25 08:34 05/15/25 08:35 Temperature Pulse Rate 99 106 H 106 H Respiratory Rate 17 19 19 Blood Pressure Pulse Oximetry 93 Oxygen Delivery BiPAP Oxygen Flow Rate Fraction of Inspired Oxygen Exam Const: General: cooperative, comfortable and no acute distress Orientation/consciousness: oriented to person, oriented to place and oriented to time Other: No acute distress on noninvasive ventilation. HENMT: Head: normal to inspection Ears: hearing grossly normal bilaterally Other: And IV mask in place. Eyes: General: appearance normal, both eyes and all related structures Neck: Neck: normal visual inspection Chest: Chest palpation & inspection: normal inspection of the chest Resp: Effort & Inspection: normal respiratory effort and able to speak in complete sentences Auscultation: no crackles, no rales, no rhonchi, no wheezes and diminished lung sounds Other: Morbidly obese Cardio: Other: regular rate GI: Inspection: normal to inspection GI Palp: No abdominal tenderness Other: no tenderness to deep palpation. Morbidly obese. Skin: General skin exam: normal color Neuro: General: oriented to person, oriented to place and oriented to time Extrem: General: normal to inspection and edema Psych: Appearance: grossly normal Results Laboratory Findings 05/15/25 04:18 05/15/25 04:18 ABG, PT/INR, D-dimer: ABG ABG pH 7.196 (7.350-7.450) L* 05/15/25 09:09 ABG pCO2 70.2 mmHg (35.0-45.0) H* 05/15/25 09:09 ABG pO2 83.6 mmHg (80.0-100.0) 05/15/25 09:09 ABG O2 Saturation 93.4 % (95.0-100.0) L 05/15/25 09:09 Abnormal lab findings: Abnormal Labs 05/14/25 05/14/25 05/14/25 09:50 10:11 13:21 WBC 18.4 H RBC Hgb 13.9 L Hct MCHC 30.2 L RDW 18.4 H MPV Immature Gran % (Auto) 2.0 H Neut % (Auto) 87.2 H Lymph % (Auto) 5.0 L Addison # (Auto) 0.9 H Abs Immat Gran (auto) 0.36 H Absolute Neuts (auto) 16.1 H ABG pH ABG pCO2 ABG pO2 ABG HCO3 ABG O2 Saturation Oxyhemoglobin Reduced Hemoglobin Sodium BUN 44 H Creatinine 2.13 H Estimated GFR 31 L Glucose 189 H POC Capillary Glucose Hemoglobin A1c 8.9 H Lactic Acid 2.4 H Calcium Magnesium 1.2 L Troponin I 0.098 H* 0.125 H* D NT-Pro-B Natriuret Pep 1120 H Total Protein Albumin Urine Appearance Cloudy H Urine Protein 2+ H Urine Glucose (UA) Trace H Urine Ketones Trace H Ur Blood (Man) 1+ H Leukocyte Esterase Rfl 2+ H Urine RBC 6-10 H Urine WBC >100 H Urine WBC Clumps Present H Urine Bacteria 1+ H 05/14/25 05/14/25 05/14/25 16:25 16:27 19:39 WBC RBC Hgb Hct MCHC RDW MPV Immature Gran % (Auto) Neut % (Auto) Lymph % (Auto) Addison # (Auto) Abs Immat Gran (auto) Absolute Neuts (auto) ABG pH ABG pCO2 ABG pO2 ABG HCO3 ABG O2 Saturation Oxyhemoglobin Reduced Hemoglobin Sodium BUN Creatinine Estimated GFR Glucose POC Capillary Glucose 204 H 213 H Hemoglobin A1c Lactic Acid Calcium Magnesium Troponin I 0.187 H* D NT-Pro-B Natriuret Pep Total Protein Albumin Urine Appearance Urine Protein Urine Glucose (UA) Urine Ketones Ur Blood (Man) Leukocyte Esterase Rfl Urine RBC Urine WBC Urine WBC Clumps Urine Bacteria 05/14/25 05/15/25 05/15/25 22:25 02:54 03:01 WBC RBC Hgb Hct MCHC RDW MPV Immature Gran % (Auto) Neut % (Auto) Lymph % (Auto) Addison # (Auto) Abs Immat Gran (auto) Absolute Neuts (auto) ABG pH 7.240 L* ABG pCO2 65.1 H* ABG pO2 74.3 L ABG HCO3 27.3 H ABG O2 Saturation 94.6 L 94.1 L Oxyhemoglobin Reduced Hemoglobin 5.2 H 5.2 H Sodium BUN Creatinine Estimated GFR Glucose POC Capillary Glucose 222 H Hemoglobin A1c Lactic Acid Calcium Magnesium Troponin I NT-Pro-B Natriuret Pep Total Protein Albumin Urine Appearance Urine Protein Urine Glucose (UA) Urine Ketones Ur Blood (Man) Leukocyte Esterase Rfl Urine RBC Urine WBC Urine WBC Clumps Urine Bacteria 05/15/25 05/15/25 05/15/25 04:18 04:28 05:56 WBC 22.8 H RBC 4.24 L Hgb 11.6 L Hct 39.3 L MCHC 29.5 L RDW 18.0 H MPV 10.9 H Immature Gran % (Auto) 1.2 H Neut % (Auto) 86.8 H Lymph % (Auto) 5.5 L Addison # (Auto) 1.3 H Abs Immat Gran (auto) 0.28 H Absolute Neuts (auto) 19.8 H ABG pH 7.245 L* 7.209 L* ABG pCO2 63.5 H* 70.4 H* ABG pO2 125.0 H 71.5 L ABG HCO3 26.9 H 27.5 H ABG O2 Saturation 90.3 L Oxyhemoglobin 89.6 L Reduced Hemoglobin 8.5 H Sodium 135 L BUN 46 H Creatinine 2.52 H Estimated GFR 25 L Glucose 238 H POC Capillary Glucose Hemoglobin A1c Lactic Acid Calcium 8.3 L Magnesium Troponin I NT-Pro-B Natriuret Pep 4930 H Total Protein 5.8 L Albumin 2.9 L Urine Appearance Urine Protein Urine Glucose (UA) Urine Ketones Ur Blood (Man) Leukocyte Esterase Rfl Urine RBC Urine WBC Urine WBC Clumps Urine Bacteria 05/15/25 05/15/25 07:15 09:09 WBC RBC Hgb Hct MCHC RDW MPV Immature Gran % (Auto) Neut % (Auto) Lymph % (Auto) Addison # (Auto) Abs Immat Gran (auto) Absolute Neuts (auto) ABG pH 7.196 L* ABG pCO2 70.2 H* ABG pO2 ABG HCO3 26.6 H ABG O2 Saturation 93.4 L Oxyhemoglobin Reduced Hemoglobin Sodium BUN Creatinine Estimated GFR Glucose POC Capillary Glucose 237 H Hemoglobin A1c Lactic Acid Calcium Magnesium Troponin I NT-Pro-B Natriuret Pep Total Protein Albumin Urine Appearance Urine Protein Urine Glucose (UA) Urine Ketones Ur Blood (Man) Leukocyte Esterase Rfl Urine RBC Urine WBC Urine WBC Clumps Urine Bacteria Diagnostic Findings Additional studies: ITS Impressions Chest X-Ray 05/14/25 10:51 IMPRESSION: 1. Interstitial pulmonary edema and/or pneumonitis. 2. Left basilar atelectasis and/or airspace disease. Abdomen/Pelvis CT 05/14/25 11:30 IMPRESSION: 1. No acute findings. Chest X-Ray 05/15/25 08:16 Impression: Probable bilateral pneumonia superimposed upon CHF
[2025-05-15 10:26] LABS: Procalcitonin 4.3 ng/mL
--- NOTE | 2025-05-15 10:27 | P.CONCA_ITS ---
Assessment and Plan Assessment and plan (1) Elevated troponin: Code(s): R79.89 - Other specified abnormal findings of blood chemistry Status: Chronic Plan massively obese 74-year-old man enters the hospital because of altered mental status, decreased responsiveness which is at the moment being attributed to urinary sepsis. He does have significant history of coronary disease and valvular heart disease but is not reporting any symptoms suspicious for indicative of an acute coronary syndrome. Once again troponin levels are sampled apparently as a matter of routine and they are slightly elevated out of normal range but the pattern is not indicative of ACS nor does he have any symptoms to suggest this. This lead modest low level of troponin does not merit further ischemic evaluation. He is markedly edematous /volume overloaded but this is primarily result of his obesity and is not a sign of heart failure. He is on an aggressive regimen of bumetanide as an outpatient for this. This edema does not have to can keep him in the hospital. I do not have any specific cardiac recommendations regarding his troponin. Routine follow-up in our office is already scheduled been seeing him for a number of years Leo Ribeiro MD [facility] History of Present Illness History of Present Illness Consult date/time: 05/15/25 10:27 Reason For Visit: Urosepsis, +trop Narrative: This is a 74-year-old man who I know with a history of coronary disease and valvular heart disease who I am seeing at the request of the hospitalist today because of elevated troponin level. He is a patient who has coronary disease dating back to 2009 at which time he underwent PCI of his anterior descending and right coronary arteries. He did well clinically until 2019 when he was symptomatic with dyspnea/ heart failure and had developed severe aortic valve stenosis. At that time he was referred to my partner, Dr. Ballard who was able to perform transcatheter aortic valve replacement over at [facility]. He did very well following that event and has been seen in my office since then. His principal comorbidity is morbid obesity with a weight of 400 lb and a BMI of 66. As it happens I just saw him recently in the office at which time he had no cardiovascular complaints. Apparently he was brought to the emergency room yesterday by his family because they felt he was not acting right, lethargic and apparently of reduced level of responsiveness etc.. While he was being evaluated in the ER was found that he was hypercarbic and acidemic. Troponin levels were sampled apparently as a matter of routine and they are slightly elevated at a level of 0.1 of overall 3 levels are essentially unchanged are flat. He is not reporting any chest pain pressure or heaviness no shortness of breath. He is comfortable in room 214 at the time of this evaluation wearing BiPAP device. Review of Systems 2 Review of Systems: ROS unobtainable: Yes unobtainable due to medical condition PMFSH Past Medical History Medical History Obesity Chronic respiratory failure Kidney disease History of FL (myocardial infarction) High cholesterol Wears glasses Weight gain Right knee DJD Left knee DJD CKD (chronic kidney disease) Pulmonary hypertension Moderate on echocardiogram from 2018 Follicular low grade B-cell lymphoma Morbid (severe) obesity due to excess calories Restless legs syndrome Unspecified background retinopathy Morbid obesity with BMI of 60.0-69.9, adult Acute respiratory failure Hospitalization June 06 through July 20, 2019 intubated 07/07/2019 through 07/14/2019 due to sepsis with septic shock, fluid overload, cellulitis with abscess of the left buttock Aortic stenosis severe on echocardiogram July 2019 Non-Hodgkin lymphoma He is a patient of Dr. Oliveira. Depression Diabetes Arthritis GERD (gastroesophageal reflux disease) Sleep apnea on BiPAP with O2 bleed in Hypertension Hypercholesterolemia CAD (coronary artery disease) of artery bypass graft With history of stents x4. Dr. Ribeiro Mitral valve prolapse CHF (congestive heart failure) Echocardiogram 02/27: EF of 35%, LVH, akinetic apical segment, Aortic valve not well visualized Peripheral neuropathy Cataract Surgical History Surgical History History of heart artery stent S/P TAVR (transcatheter aortic valve replacement) H/O arthroscopic knee surgery H/O inguinal hernia repair History of appendectomy H/O cardiac catheterization Hx of tonsillectomy Family History Family History Father Heart disease Diabetes mellitus Lung disease CHF (congestive heart failure) Atrial fibrillation Mother Breast cancer Dementia Son Aneurysm, aorta, abdominal, ruptured Acute myocardial infarction Other Arthritis Cerebrovascular accident Family history of obesity Hypertension Social History Social History Social History: Mr. Kowalski is and lives with his in [place], [place]. He designates his , Puja, as his surrogate decision maker and he wishes to be a full code. He denies alcohol, tobacco, and drug use. His primary care provider is Dr. Leo Doss. Smoking status: Never smoker Alcohol intake: never Substance use: never Do You Feel Safe in your Home?: Yes Lack of Transportation: No Lack of Food: Never True Current Housing: I Have Housing Concerned About Future Housing: No Difficulty Paying Gas/Electric Bills: No Difficulty Paying for Meds: No Currently Unemployed: No Education: Associate Degree Difficulty w/ Childcare or Family Care: No Gender identity (if verbalized by the patient): Male Sexual Orientation (if Verbalized by the Patient): Straight or Heterosexual Spiritual care concerns: No Agree to blood products: Yes Meds Home Medications and Allergies Home Medications ?Medication ?Instructions ?Recorded ?Confirmed ?Type aspirin 81 mg tablet,delayed 81 mg PO DAILY 05/31/19 1 History release diphenoxylate-atropine 2.5 1 tablet PO QID PRN Diarrhe a 05/03/20 05/14/25 History mg-0.025 mg tablet (Lomotil) omega 9-hvr-drt-fish oil 1,200 mg 1 cap PO BID 2 05/14/25 History (144 mg-216 mg) capsule (Fish Oil) cyanocobalamin (vitamin B-12) 1,000 mcg PO QAM #30 tab s 10/03/21 05/14/25 Rx 1,000 mcg tablet (Vitamin B-12) blood-glucose meter (OneTouch #1 ea 12/05/21 05/14/25 Rx Ultra2 Meter kit) ferrous sulfate 325 mg (65 mg 325 mg PO .QOD 03/13/23 05/14/25 History iron) tablet loratadine 10 mg tablet (Claritin) 10 mg PO DAILY #90 tabs 03/28/24 05/14/25 Rx blood-glucose,transitional studies instructor,cont #1 ea 06/27/24 05/14/25 Rx (FreeStyle Michelle 3 Alsen) diclofenac sodium 1 % topical gel 4 g topical QID #100 grams 08/31/24 05/14/25 Rx (Arthritis Pain (diclofenac)) fluticasone propionate 50 1 spray intranasal BID #48 g kimberly 08/31/24 05/14/25 Rx mcg/actuation nasal spray,suspension (Flonase Allergy Relief) metoprolol tartrate 25 mg tablet 12.5 mg (1/2 x 25 mg) PO BID #180 09/05/24 05/14/25 Rx tabs triamcinolone acetonide 0.1 % See Rx Instructions .Rou te 10/11/24 05/14/25 Rx topical cream .COMPLEX #80 grams clopidogrel 75 mg tablet See Rx Instructions .Route 0 10/21/24 05/14/25 Rx .COMPLEX #100 tabs blood-glucose sensor (FreeStyle #13 ea 10/24/24 Rx Michelle 3 Sensor device) atorvastatin 80 mg tablet See Rx Instructions .Route 0 12/07/24 05/14/25 Rx .COMPLEX #100 tabs quetiapine 50 mg tablet See Rx Instructions .Route 0 12/07/24 05/14/25 Rx .COMPLEX #100 tabs semaglutide 2 mg/dose (8 mg/3 mL) See Rx Instructions .Route 12/27/24 05/14/25 Rx subcutaneous pen injector (Ozempic) .COMPLEX #9 mL trazodone 100 mg tablet See Rx Instructions .Route 0 01/11/25 05/14/25 Rx .COMPLEX #50 tabs blood sugar diagnostic (OneTouch #400 strips 01/23/25 05/14/25 Rx Ultra Test strips) Farxiga 5 mg tablet (dapagliflozin 5 mg PO DAILY #90 t abs 01/25/25 05/14/25 Rx propanediol) pen needle, diabetic 32 gauge x #400 ea 01/25/2505/14 Rx gabapentin 600 mg tablet See Rx Instructions .Route 0 01/30/25 05/14/25 Rx .COMPLEX #300 tabs pantoprazole 40 mg tablet,delayed See Rx Instructions .Route 02/07/25 05/14/25 Rx release .COMPLEX #100 tabs insulin lispro 100 unit/mL See Rx Instructions .Route 02/22/25 05/14/25 Rx subcutaneous pen (Humalog KwikPen .COMPLEX #75 mL (U-100) Insulin) albuterol sulfate 90 mcg/actuation See Rx Instructions .Route 03/13/25 05/14/25 Rx aerosol inhaler .COMPLEX #25.5 grams fluoxetine 20 mg tablet See Rx Instructions .Route 0 03/23/25 05/14/25 Rx .COMPLEX #90 tabs insulin glargine 100 unit/mL (3 See Rx Instructions .R oute 03/27/25 05/14/25 Rx mL) subcutaneous pen (Lantus .COMPLEX #75 mL Solostar U-100 Insulin) pramipexole 1 mg tablet 1 mg PO QHS #100 tabs 05/14/25 Rx hydrocodone 5 mg-acetaminophen 325 1 tablet PO Q6H PRN pain #60 tabs 05/05/25 05/14/25 Rx mg tablet tizanidine 4 mg tablet 4 mg PO QHS PRN muscle spast icity 05/05/25 05/14/25 Rx #100 tabs bumetanide 2 mg tablet See Rx Instructions .Route 0 05/09/25 05/14/25 Rx .COMPLEX #100 tabs ergocalciferol (vitamin D2) 1,250 See Rx Instructions .Route 05/09/25 05/14/25 Rx mcg (50,000 unit) capsule (Vitamin .COMPLEX #15 caps D2) lancets 30 gauge (OneTouch Delica #400 ea 05/09/2501/01 Rx Plus Lancet) nitroglycerin 0.4 mg sublingual See Rx Instructions .R oute 05/09/25 05/14/25 Rx tablet .COMPLEX #125 tabs Allergies Allergy/AdvReac Type Severity Reaction Status Date / Time No Known Allergies Allergy Verified 05/14/25 15:56 Vital Signs Vital Signs - 24 hr 05/14/25 16:00 05/14/25 16:00 05/14/25 16:00 Temperature 37.1 C Pulse Rate 116 H 115 H Respiratory Rate 23 H Blood Pressure 132/71 Pulse Oximetry 93 96 Oxygen Delivery Nasal Cannula Oxygen Flow Rate 2 Fraction of Inspired Oxygen 05/14/25 18:00 05/14/25 19:10 05/14/25 19:29 Temperature Pulse Rate 116 H 114 H Respiratory Rate Blood Pressure Pulse Oximetry 90 94 Oxygen Delivery Nasal Cannula Autopap Oxygen Flow Rate 6 Fraction of Inspired Oxygen 05/14/25 19:30 05/14/25 20:00 05/14/25 20:00 Temperature 37.1 C Pulse Rate 114 H 117 H Respiratory Rate 20 20 Blood Pressure 124/40 L Pulse Oximetry 93 97 93 Oxygen Delivery Autopap CPAP Oxygen Flow Rate 4 5 Fraction of Inspired Oxygen 36 05/14/25 20:00 05/14/25 20:17 05/14/25 21:21 Temperature Pulse Rate 116 H 113 H 101 H Respiratory Rate 28 H Blood Pressure Pulse Oximetry 90 Oxygen Delivery BiPAP Oxygen Flow Rate Fraction of Inspired Oxygen 05/14/25 21:25 05/14/25 21:50 05/14/25 22:00 Temperature Pulse Rate 101 H 101 H 104 H Respiratory Rate 29 H 24 H Blood Pressure Pulse Oximetry Oxygen Delivery Oxygen Flow Rate Fraction of Inspired Oxygen 05/14/25 22:45 05/14/25 23:23 05/14/25 23:56 Temperature 38.6 C H 38.6 C H Pulse Rate 104 H 108 H Respiratory Rate 23 H 21 H Blood Pressure 115/47 L Pulse Oximetry 93 93 Oxygen Delivery BiPAP Oxygen Flow Rate Fraction of Inspired Oxygen 05/15/25 00:00 05/15/25 00:00 05/15/25 01:18 Temperature 38.8 C H Pulse Rate 107 H Respiratory Rate Blood Pressure Pulse Oximetry 94 Oxygen Delivery BiPAP Oxygen Flow Rate Fraction of Inspired Oxygen 36 05/15/25 01:27 05/15/25 01:29 05/15/25 01:50 Temperature Pulse Rate 99 101 H Respiratory Rate 18 20 Blood Pressure Pulse Oximetry 93 92 Oxygen Delivery BiPAP Nasal Cannula Oxygen Flow Rate 4 Fraction of Inspired Oxygen 05/15/25 01:58 05/15/25 02:00 05/15/25 02:50 Temperature Pulse Rate 99 Respiratory Rate Blood Pressure Pulse Oximetry 93 90 Oxygen Delivery Nasal Cannula High Flow Nasal Cannula Oxygen Flow Rate 4 8 Fraction of Inspired Oxygen 36 05/15/25 03:30 05/15/25 03:36 05/15/25 04:00 Temperature Pulse Rate 97 Respiratory Rate 20 Blood Pressure Pulse Oximetry 95 95 97 Oxygen Delivery High Flow Therapy with Na High Flow Therapy with Na High Flow Therapy with Na Oxygen Flow Rate 40 40 40 Fraction of Inspired Oxygen 70 70 70 05/15/25 04:00 05/15/25 04:24 05/15/25 04:25 Temperature 37.1 C Pulse Rate 99 102 H 103 H Respiratory Rate 20 20 Blood Pressure 148/67 H Pulse Oximetry 99 97 Oxygen Delivery High Flow Therapy with Na Oxygen Flow Rate 40 Fraction of Inspired Oxygen 70 05/15/25 05:00 05/15/25 05:00 05/15/25 06:00 Temperature Pulse Rate 103 H Respiratory Rate 20 Blood Pressure Pulse Oximetry 95 98 86 L Oxygen Delivery High Flow Therapy with Na High Flow Therapy with Na High Flow Therapy with Na Oxygen Flow Rate 40 40 40 Fraction of Inspired Oxygen 40 40 50 05/15/25 06:00 05/15/25 06:14 05/15/25 06:17 Temperature Pulse Rate 102 H 111 H Respiratory Rate 24 H Blood Pressure Pulse Oximetry 92 92 Oxygen Delivery BiPAP BiPAP Oxygen Flow Rate Fraction of Inspired Oxygen 36 05/15/25 08:15 05/15/25 08:34 05/15/25 08:35 Temperature Pulse Rate 99 106 H 106 H Respiratory Rate 17 19 19 Blood Pressure Pulse Oximetry 93 Oxygen Delivery BiPAP Oxygen Flow Rate Fraction of Inspired Oxygen Exam 2 Const: General: comfortable and no acute distress Other: Massively obese gentleman no distress of any kind HENMT: Mouth: Yes moist mucous membranes Eyes: Sclera: sclerae normal Neck: Neck: supple Other: not able to comment on JVD given his body habitus Resp: Effort & Inspection: normal respiratory effort Auscultation: clear to auscultation bilaterally Other: breath sounds are distant does with would be expected but are grossly clear without wheezes rales rhonchi Cardio: Rate: regular rate Rhythm: regular rhythm Other: PMI of course is not palpable, no audible cardiac murmur GI: Auscultation: normal bowel sounds Other: massively obese but benign Skin: General skin exam: normal color Neuro: Other: alert and responsive Extrem: Other: adequate arterial perfusion, significant soft pitting edema which is chronic Results Labs and Meds 05/15/25 04:18 05/15/25 04:18 Lab results: Cardiac Enzymes 05/14/25 05/14/25 05/14/25 Range/Units 09:50 13:21 16:25 AST (17-59) U/L Troponin I 0.098 H* 0.125 H* D 0.187 H* D (0.000-0.034) ng/mL 05/15/25 Range/Units 04:18 AST 42 (17-59) U/L Troponin I (0.000-0.034) ng/mL CBC 05/15/25 Range/Units 04:18 WBC 22.8 H (4.5-10.0) K/mm3 RBC 4.24 L (4.6-6.20) M/mm3 Hgb 11.6 L (14.0-18.0) g/dL Hct 39.3 L (42.0-52.0) % Plt Count 150 (150-375) k/mm3 Lymph # (Auto) 1.26 (0.9-3.2) K/mm3 [place]ting[place] # (Auto) 1.3 H (0.1-0.6) K/mm3 Eos # (Auto) 0.1 (0-0.3) K/mm3 Baso # (Auto) 0.1 (0.0-0.1) K/mm3 Comprehensive Metabolic Panel 05/15/25 Range/Units 04:18 Sodium 135 L (137-145) mmol/L Potassium 4.0 (3.4-5.0) mmol/L Chloride 102 (98-107) mmol/L Carbon Dioxide 28 (22-30) mmol/L BUN 46 H (9-20) mg/dL Creatinine 2.52 H (0.7-1.3) mg/dL Glucose 238 H (65-110) mg/dL Calcium 8.3 L (8.4-10.2) mg/dL AST 42 (17-59) U/L ALT 18 (6-50) U/L Alkaline Phosphatase 68 (38-126) U/L Total Protein 5.8 L (6.3-8.2) g/dL Albumin 2.9 L (3.5-5.1) g/dL Intake and Output 05/14/25 05/15/25 05/15/25 23:59 07:59 15:59 Intake Total 300 340 Output Total 250 600 Balance 50 -260 Intake: IV 300 Cefepime 2 gm In Sodium 50 Chloride 0.9% IV 50 ml @ 100 mls/hr IVPB Q12HR [facility] Rx#: [id number] Vancomycin 1,250 mg/Ns 250 ml 1 250 ,250 mg In 250 ml @ 166.667 mls /hr IVPB ONCE ONE Rx#:[id number] Oral 340 Output: Urine 250 250 Catheter Urine 350 Urethral Catheter 350 Other: # Unmeasured Voids 1 # Incontinent Voids 1 Patient Weight 05/15/25 23:59 Weight 198 kg
[2025-05-15 10:32] LABS: Thyroid Stimulating Hormone 2.160 uIU/mL (0.465-4.680)
[2025-05-15 10:49] LABS: CRP 29.5 mg/dL (<1.0)
[2025-05-15 11:42] LABS: Alveolar/Arterial O2 Gradient 129.8 mmHg; Carboxyhemoglobin 1.6 % THb (0-2.0); Fractional Inspired Oxygen 40 %; HCO3 ABG 25.4 mEq/l (22.0-26.0); Methemoglobin ABG 0.3 %THb (0-1.5); Oxygen Content ABG 16.6 %vol (16.0-22.0); Oxygen Saturation ABG 93.9 % (95.0-100.0); PO2 ABG 83.2 mmHg (80.0-100.0); PO2 FiO2 Ratio Arterial Blood 2.08 %; Reduced Hemoglobin 5.0 %THb (0-5.0)
[2025-05-15 11:49] LABS: PCO2 ABG 62.8 mmHg (35.0-45.0)
[2025-05-15 11:50] LABS: Modified Allen's Test Pass; Site Drawn RIGHT RADIAL
[2025-05-15] MEDS: PERFLUTREN LIPID MICROSPHERES 1.5 ML VIAL DILUTED TO 10 ML TOTAL VOLUME IV PUSH (11:59)
--- NOTE | 2025-05-15 11:59 | IVDEFINITY ---
Prior to administration of IV Definity the patient was educated on the risks and benefits of the imaging enhancing agent including potential adverse side effects. The patient verbalized understanding. Allergies were verified. No exclusion criteria were identified and at least one of the following inclusion criteria were met: 1) physician request, 2) patient technically difficult to image (per the [place] [employer] of Echocardiography guidelines of two or more segments not discernable within the apical view), or 3) questionable left ventricular function. ?
[2025-05-15 12:38] LABS: Free T4 Free Thyroxine 0.97 ng/dL (0.78-2.19)
--- NOTE | 2025-05-15 12:49 | PCPTNOTE ---
Spoke with current hospitalist. OK to remove therapy orders at this time due to pt's current medical condition.
--- NOTE | 2025-05-15 15:12 | P.PNIM_ITS ---
Progress Note: A&P Assessment and Plan (1) Sepsis: Code(s): A41.9 - Sepsis, unspecified organism Status: Acute Assessment and Plan: -UTI with tachycardia, tachypnea, increased oxygen demand, altered mental status and fever -Cefepime and vancomycin started in ER and will be continued -No prior urine culture available but prior buttock wound culture with ESBL Klebsiella and MRSA (2) Elevated troponin: Code(s): R79.89 - Other specified abnormal findings of blood chemistry Status: Acute Assessment and Plan: -Mildly elevated troponin without chest pain with flat trend -Prior cardiac history significant -Cardiology consulted by ER, states that troponin elevation likely due to sepsis and not [place] -Continue aspirin and clopidogrel (3) Acute and chronic respiratory failure ([id number]): Code(s): J96.20 - Acute and chronic respiratory failure, unspecified whether with hypoxia or hypercapnia Status: Acute Assessment and Plan: -Patient uses oxygen with BiPAP at night but not during the day -Noted to require oxygen for adequate saturations in ER and up to 6 LPM required after admission -CXR indicative of pulmonary edema or pneumonites with left basilar atelectasis or airspace disease -BiPAP with 4 LPM use at home per prior Pulmonology notes -ABG with hypercapnia BiPAP 22/16 with non improvement. Switched to AVAPS mode with subsequent improvement will continue continues AVAPS today and tonight. -Pulmonology consulted and discussed with him likely related to CHF exacerbation. And/or component of aspiration pneumonia (4) Altered mental status: Code(s): R41.82 - Altered mental status, unspecified Status: Acute Assessment and Plan: -altered mental status likely due to hypercapnia -Likely metabolic encephalopathy from UTI though hypercapnea or hypoxia as cause is possible as well (5) Acute UTI: Code(s): N39.0 - Urinary tract infection, site not specified Status: Acute Assessment and Plan: -UA with >100 WBC with WBC clumps, 1+ bacteria, 2+ leukocyte esterase -Cefepime and vancomycin started in ER, will continue -No prior urine culture present -Patient had fever and elevated WBC 18.4 on admit (6) Hypomagnesemia: Code(s): E83.42 - Hypomagnesemia Status: Acute Assessment and Plan: -Magnesium 1.2 on admission, prior history of low magnesium -3 grams repleted over 3 hours -Repeat labs in AM (7) Congestive heart failure: Qualifiers: Heart failure type: unspecified Heart failure chronicity: unspecified Qualified Code(s): I50.9 - Heart failure, unspecified Code(s): I50.9 - Heart failure, unspecified Status: Acute Assessment and Plan: -Hypoxia with new oxygen demand and CXR findings of interstitial pulmonary edema -Dose of Bumex 2 mg ordered and will plan to continue this daily medication -Monitor renal function -Echo ordered, recent Cardiology note scanned into the record from [facility] -Cardiology consulted by ER due to elevated troponin Continue diuresis with 2 mg Bumex IV b.i.d. 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 use Qualified Code(s): E11.65 - Type 2 diabetes mellitus with hyperglycemia; Z79.4 - halfway (current) use of insulin Code(s): E11.65 - Type 2 diabetes mellitus with hyperglycemia Status: Chronic Assessment and Plan: -HGB A1c 8.9 on admit -Hold Farxiga since it is non-formulary and states no substitutions on RX unless family can bring in -Diabetic diet ordered -ACHS finger stick blood glucose with high dose SSI -Reduce home insulin dosing but prepare to titrate dosing based on fingerstick results (10) Sleep apnea: Code(s): G47.30 - Sleep apnea, unspecified Status: Chronic Assessment and Plan: -BiPAP settings with 4 LPM bleed in per Pulmonology notes in 2021 -pulmonary on board Changed to AVAPS setting at night Plan Pneumonia: On vancomycin and cefepime. Will add doxycycline and Flagyl to cover aspiration as well. WBC count worsened today. Subjective Date/time seen: 05/15/25 15:12 Interval history: Overnight events noted. Discussed with Pulmonary. Leak with BiPAP was eventually switched to AVAPS. Patient alert and oriented denies any abdominal pain or nausea Review of Systems Review of Systems: All systems reviewed & are unremarkable except as noted in HPI and below Exam Narrative: GENERAL: Morbidly obese elderly male on BiPAP not in acute distress alert and oriented x3 HEAD: Normocephalic, atraumatic. ENT:? Mucous membranes moist. CHEST: Diminished breath sounds bilaterally not in respiratory distress HEART: Mildly tachycardic rate with regular rhythm. ? Normal peripheral pulses. ABDOMEN: Soft, obese, mild generalized tenderness without rebound or guarding, normal bowel sounds noted. EXTREMITIES: Normal range of motion. Bilateral lower extremity edema with erythema due to PVD and some small fluid filled blisters on left anterior lower leg. SKIN: Warm dry normal color NEURO: Alert and oriented x3 moving all extremities Objective Data Vital Signs Vital Signs: Vital Signs - 24 hr 05/14/25 16:00 05/14/25 16:00 05/14/25 16:00 Temperature 98.8 F Pulse Rate 116 H 115 H Respiratory Rate 23 H Blood Pressure 132/71 Pulse Oximetry 93 96 Oxygen Delivery Nasal Cannula Oxygen Flow Rate 2 Fraction of Inspired Oxygen 05/14/25 18:00 05/14/25 19:10 05/14/25 19:29 Temperature Pulse Rate 116 H 114 H Respiratory Rate Blood Pressure Pulse Oximetry 90 94 Oxygen Delivery Nasal Cannula Autopap Oxygen Flow Rate 6 Fraction of Inspired Oxygen 05/14/25 19:30 05/14/25 20:00 05/14/25 20:00 Temperature 98.7 F Pulse Rate 114 H 117 H Respiratory Rate 20 20 Blood Pressure 124/40 L Pulse Oximetry 93 97 93 Oxygen Delivery Autopap CPAP Oxygen Flow Rate 4 5 Fraction of Inspired Oxygen 36 05/14/25 20:00 05/14/25 20:17 05/14/25 21:21 Temperature Pulse Rate 116 H 113 H 101 H Respiratory Rate 28 H Blood Pressure Pulse Oximetry 90 Oxygen Delivery BiPAP Oxygen Flow Rate Fraction of Inspired Oxygen 05/14/25 21:25 05/14/25 21:50 05/14/25 22:00 Temperature Pulse Rate 101 H 101 H 104 H Respiratory Rate 29 H 24 H Blood Pressure Pulse Oximetry Oxygen Delivery Oxygen Flow Rate Fraction of Inspired Oxygen 05/14/25 22:45 05/14/25 23:23 05/14/25 23:56 Temperature 101.5 F H 101.5 F H Pulse Rate 104 H 108 H Respiratory Rate 23 H 21 H Blood Pressure 115/47 L Pulse Oximetry 93 93 Oxygen Delivery BiPAP Oxygen Flow Rate Fraction of Inspired Oxygen 05/15/25 00:00 05/15/25 00:00 05/15/25 01:18 Temperature 101.8 F H Pulse Rate 107 H Respiratory Rate Blood Pressure Pulse Oximetry 94 Oxygen Delivery BiPAP Oxygen Flow Rate Fraction of Inspired Oxygen 36 05/15/25 01:27 05/15/25 01:29 05/15/25 01:50 Temperature Pulse Rate 99 101 H Respiratory Rate 18 20 Blood Pressure Pulse Oximetry 93 92 Oxygen Delivery BiPAP Nasal Cannula Oxygen Flow Rate 4 Fraction of Inspired Oxygen 05/15/25 01:58 05/15/25 02:00 05/15/25 02:50 Temperature Pulse Rate 99 Respiratory Rate Blood Pressure Pulse Oximetry 93 90 Oxygen Delivery Nasal Cannula High Flow Nasal Cannula Oxygen Flow Rate 4 8 Fraction of Inspired Oxygen 36 05/15/25 03:30 05/15/25 03:36 05/15/25 04:00 Temperature Pulse Rate 97 Respiratory Rate 20 Blood Pressure Pulse Oximetry 95 95 97 Oxygen Delivery High Flow Therapy with Na High Flow Therapy with Na High Flow Therapy with Na Oxygen Flow Rate 40 40 40 Fraction of Inspired Oxygen 70 70 70 05/15/25 04:00 05/15/25 04:24 05/15/25 04:25 Temperature 98.8 F Pulse Rate 99 102 H 103 H Respiratory Rate 20 20 Blood Pressure 148/67 H Pulse Oximetry 99 97 Oxygen Delivery High Flow Therapy with Na Oxygen Flow Rate 40 Fraction of Inspired Oxygen 70 05/15/25 05:00 05/15/25 05:00 05/15/25 06:00 Temperature Pulse Rate 103 H Respiratory Rate 20 Blood Pressure Pulse Oximetry 95 98 86 L Oxygen Delivery High Flow Therapy with Na High Flow Therapy with Na High Flow Therapy with Na Oxygen Flow Rate 40 40 40 Fraction of Inspired Oxygen 40 40 50 05/15/25 06:00 05/15/25 06:14 05/15/25 06:17 Temperature Pulse Rate 102 H 111 H Respiratory Rate 24 H Blood Pressure Pulse Oximetry 92 92 Oxygen Delivery BiPAP BiPAP Oxygen Flow Rate Fraction of Inspired Oxygen 36 05/15/25 08:00 05/15/25 08:00 05/15/25 08:15 Temperature 99.1 F Pulse Rate 91 99 Respiratory Rate 24 H 17 Blood Pressure 116/55 L Pulse Oximetry 91 91 Oxygen Delivery BiPAP Oxygen Flow Rate Fraction of Inspired Oxygen 36 05/15/25 08:34 05/15/25 08:35 05/15/25 10:15 Temperature Pulse Rate 106 H 106 H 108 H Respiratory Rate 19 19 20 Blood Pressure Pulse Oximetry 93 92 Oxygen Delivery BiPAP BiPAP Oxygen Flow Rate Fraction of Inspired Oxygen 05/15/25 12:00 05/15/25 12:00 05/15/25 14:46 Temperature 99.1 F Pulse Rate 91 91 96 Respiratory Rate 24 H 24 H 19 Blood Pressure 116/55 L Pulse Oximetry 91 91 Oxygen Delivery BiPAP Oxygen Flow Rate Fraction of Inspired Oxygen 36 05/15/25 14:48 Temperature Pulse Rate 96 Respiratory Rate 21 H Blood Pressure Pulse Oximetry 93 Oxygen Delivery BiPAP Oxygen Flow Rate Fraction of Inspired Oxygen Intake/Output Intake/Output: Intake & Output 05/12/25 05/13/25 05/14/25 05/15/25 23:59 23:59 23:59 23:59 Intake Total 1600 340 Output Total 300 1100 Balance 1300 -760 Meds/Results Medications: Active Medications Generic Name Dose Route Start Last Admin Trade Name Freq PRN Reason Stop Dose Admin Acetaminophen 1,000 mg 05/14/25 23:34 05/14/25 23:56 Acetaminophen 500 Mg Tablet PO 1,000 mg Q6H PRN Administration Mild Pain (1-3) or Fever Albuterol/Ipratropium 3 ml 05/14/25 20:00 05/15/25 14:45 Ipratropium 0.5 Mg/Albuterol Sulfate 2.5 Mg (Base) Ampul.Neb 3 Ml INHALATION 3 ml Q6HRT [facility] Administration Aspirin 81 mg 05/15/25 09:00 05/15/25 14:38 Aspirin 81 Mg Enteric Tablet PO Not Given DAILY [facility] Atorvastatin Calcium 80 mg 05/15/25 09:00 05/15/25 14:38 Atorvastatin 40 Mg Tablet PO Not Given DAILY [facility] Bumetanide 2 mg 05/14/25 19:15 05/15/25 14:38 Bumetanide 1 Mg Tablet PO Not Given DAILY [facility] Bumetanide 2 mg 05/15/25 09:30 05/15/25 10:19 Bumetanide Inj 2.5 Mg/10 Ml Vial IV PUSH 2 mg BID [facility] Administration Clopidogrel Bisulfate 75 mg 05/15/25 09:00 05/15/25 14:38 Clopidogrel Bisulfate 75 Mg Tablet PO Not Given QAM [facility] Cyanocobalamin 1,000 mcg 05/15/25 09:00 05/15/25 14:38 Cyanocobalamin 1,000 Mcg Tablet PO Not Given QAM [facility] Dextrose 12.5 gm 05/14/25 12:48 Dextrose 50% 25 Gm/50 Ml Syringe IV PUSH PRN PRN Hypoglycemia Protocol Diclofenac Sodium 1 applic 05/14/25 21:00 05/15/25 14:39 Diclofenac Sodium 1% 100 Gm Gel (*Bkc) TOPICAL Not Given QID [facility] Diphenoxylate HCl/Atropine 1 tablet 05/14/25 19:10 Diphenoxylate/Atropine (*Crx) 2.5 Mg Tablet PO QID PRN Diarrhea Enoxaparin Sodium 40 mg 05/14/25 21:00 05/15/25 10:17 Enoxaparin 40 Mg/0.4 Ml Syringe SUB-Q 40 mg Q12HR [facility] Administration Fish Oil 1 gm 05/14/25 21:00 05/15/25 14:40 [place] 3 Polyunsat Fatty Acids 1 Gm Cap PO Not Given Q12HR [facility] Fluoxetine HCl 20 mg 05/14/25 21:00 05/14/25 20:18 Fluoxetine Hcl 20 Mg Capsule PO 20 mg HS [facility] Administration Fluticasone Propionate 1 spray 05/15/25 09:00 05/15/25 14:39 Fluticasone Propionate 0.05% Na Spr 16 Gm Btl (*Bkc) NASAL Not Given BID [facility] Gabapentin 600 mg 05/14/25 21:00 05/15/25 14:39 Gabapentin 300 Mg Capsule PO Not Given Q12HR [facility] Glucagon 1 mg 05/14/25 12:48 Glucagon For Inj 1 Mg Vial IM PRN PRN Hypoglycemia Protocol Glucose 15 gm 05/14/25 12:48 Glucose Oral Gel 15 Gm Of Glucse In 37.5 Gm Tube PO PRN PRN Hypoglycemia Protocol Cefepime HCl 2 gm/ Sodium 50 mls @ 100 mls/hr 05/14/25 21:00 05/15/25 10:18 Chloride IVPB 100 mls/hr Q12HR [facility] Administration Vancomycin HCl 1,500 mg in 500 mls @ 250 mls/hr 05/15/25 12:00 Vancomycin 1,500 Mg/Ns 500 Ml IVPB Q24H [facility] Dextrose 1,000 mls @ 100 mls/hr 05/14/25 12:48 Dextrose 5% 1,000 Ml IVPB PRN PRN Hypoglycemia Protocol Metronidazole 500 mg in 100 mls @ 100 mls/hr 05/15/25 09:00 05/15/25 09:40 Flagyl 500 Mg/Iso Soln 100 Ml IVPB 100 mls/hr Q6H [facility] Administration Doxycycline Hyclate 100 mg/ 100 mls @ 100 mls/hr 05/15/25 11:00 05/15/25 10:19 Sodium Chloride IVPB 100 mls/hr Q12H [facility] Administration Insulin Aspart 4 - 8 units 05/14/25 17:00 05/15/25 08:36 Insulin Aspart (*Bkc) 100 Units/Ml SUB-Q 5 units TIDWM [facility] Administration Protocol Insulin Aspart 10 units 05/15/25 08:00 05/15/25 08:36 Insulin Aspart (*Bkc) 100 Units/Ml 0.05 units/kg (10 units) 10 units SUB-Q Administration TIDWM [facility] Insulin Glargine 60 units 05/14/25 21:00 05/14/25 20:17 Insulin Glargine (*Bkc) 100 Units/Ml SUB-Q 60 units HS [facility] Administration Loratadine 10 mg 05/15/25 09:00 05/15/25 14:39 Loratadine 10 Mg Tablet PO Not Given DAILY [facility] Metoprolol Tartrate 12.5 mg 05/14/25 21:00 05/15/25 14:39 Metoprolol Tartrate 12.5 Mg Tablet PO Not Given Q12HR [facility] Miscellaneous Information 0 each 05/15/25 00:01 Dapagliflozin No Sub Generic? Ok To Sub With Jardiance? XX 06/14/25 00:00 CLARIFY [facility] Non-Formulary Medication 5 mg 05/15/25 09:00 Dapagliflozin Propanediol [Farxiga] PO 06/14/25 08:59 DAILY [facility] Pantoprazole Sodium 40 mg 05/15/25 09:00 05/15/25 14:40 Pantoprazole 40 Mg Tablet PO Not Given QAM [facility] Perflutren Lipid Microsphere 0 ml 05/15/25 09:32 Perflutren Lipid Microspheres 1.5 Ml Vial Diluted To 10 Ml Total Volume IV PUSH 05/18/25 09:32 ONCE PRN adequate visualization Protocol Pramipexole Dihydrochloride 1 mg 10/05/25 21:00 05/14/25 20:13 Pramipexole 1 Mg Tablet PO Not Given QHS [facility] Quetiapine Fumarate 50 mg 05/14/25 21:00 05/14/25 23:56 Quetiapine Fumarate 25 Mg Tablet PO 50 mg HS [facility] Administration Tizanidine HCl 4 mg 05/14/25 19:10 Tizanidine Hcl 4 Mg Tablet PO QHS PRN Muscle Spasticity Trazodone HCl 50 mg 05/14/25 21:00 05/14/25 20:13 Trazodone Hcl 50 Mg Tablet PO Not Given HS [facility] Radiology Results: ITS Impressions Abdomen/Pelvis CT 05/14/25 11:30 IMPRESSION: 1. No acute findings. Chest X-Ray 05/15/25 08:16 Impression: Probable bilateral pneumonia superimposed upon CHF Labs Labs: Laboratory Results - last 24 hr 05/14/25 05/14/25 05/14/25 13:21 16:25 16:27 WBC RBC Hgb Hct MCV MCH MCHC RDW Plt Count MPV Immature Gran % (Auto) Neut % (Auto) Lymph % (Auto) Rice % (Auto) Eos % (Auto) Baso % (Auto) Lymph # (Auto) Rice # (Auto) Eos # (Auto) Baso # (Auto) Abs Immat Gran (auto) Absolute Neuts (auto) Absolute Nucleated RBC Band Neutrophils % Nucleated RBC % Platelet Estimate Anisocytosis Ovalocytes Schistocytes Puncture Site ABG pH ABG pCO2 ABG pO2 ABG PO2/FiO2 Ratio ABG HCO3 ABG O2 Saturation ABG O2 Content ABG Base Excess A-a Gradient Oxyhemoglobin Carboxyhemoglobin Methemoglobin Reduced Hemoglobin Total Hemoglobin O2 Delivery Device O2 Liters/Min FiO2 Expiratory Pressure Inspiratory Pressure Sodium Potassium Chloride Carbon Dioxide Anion Gap BUN Creatinine Estim Creat Clear Calc Estimated GFR Glucose POC Capillary Glucose 204 H Hemoglobin A1c 8.9 H Calcium Phosphorus Magnesium Total Bilirubin AST ALT Alkaline Phosphatase Troponin I 0.187 H* D C-Reactive Protein NT-Pro-B Natriuret Pep Total Protein Albumin Procalcitonin TSH Free T4 05/14/25 05/14/25 05/15/25 19:39 22:25 02:54 WBC RBC Hgb Hct MCV MCH MCHC RDW Plt Count MPV Immature Gran % (Auto) Neut % (Auto) Lymph % (Auto) Rice % (Auto) Eos % (Auto) Baso % (Auto) Lymph # (Auto) Rice # (Auto) Eos # (Auto) Baso # (Auto) Abs Immat Gran (auto) Absolute Neuts (auto) Absolute Nucleated RBC Band Neutrophils % Nucleated RBC % Platelet Estimate Anisocytosis Ovalocytes Schistocytes Puncture Site Right radial Right radial ABG pH 7.371 7.240 L* ABG pCO2 41.8 65.1 H* ABG pO2 74.3 L 83.5 ABG PO2/FiO2 Ratio 2.06 1.61 ABG HCO3 23.7 27.3 H ABG O2 Saturation 94.6 L 94.1 L ABG O2 Content 16.6 16.6 ABG Base Excess -1.5 -1.4 A-a Gradient 133.9 214.4 Oxyhemoglobin 92.7 92.8 Carboxyhemoglobin 1.8 1.7 Methemoglobin 0.3 0.3 Reduced Hemoglobin 5.2 H 5.2 H Total Hemoglobin 12.7 12.7 O2 Delivery Device Bipap High flow nasal misti O2 Liters/Min Not Reportable 8.0 FiO2 36 52 Expiratory Pressure 16 Inspiratory Pressure 22 Sodium Potassium Chloride Carbon Dioxide Anion Gap BUN Creatinine Estim Creat Clear Calc Estimated GFR Glucose POC Capillary Glucose 213 H Hemoglobin A1c Calcium Phosphorus Magnesium Total Bilirubin AST ALT Alkaline Phosphatase Troponin I C-Reactive Protein NT-Pro-B Natriuret Pep Total Protein Albumin Procalcitonin TSH Free T4 05/15/25 05/15/25 05/15/25 03:01 04:18 04:28 WBC 22.8 H RBC 4.24 L Hgb 11.6 L Hct 39.3 L MCV 92.7 MCH 27.4 MCHC 29.5 L RDW 18.0 H Plt Count 150 MPV 10.9 H Immature Gran % (Auto) 1.2 H Neut % (Auto) 86.8 H Lymph % (Auto) 5.5 L Rice % (Auto) 5.8 Eos % (Auto) 0.3 Baso % (Auto) 0.4 Lymph # (Auto) 1.26 Rice # (Auto) 1.3 H Eos # (Auto) 0.1 Baso # (Auto) 0.1 Abs Immat Gran (auto) 0.28 H Absolute Neuts (auto) 19.8 H Absolute Nucleated RBC 0.000 Band Neutrophils % Not Reportable Nucleated RBC % 0.0 Platelet Estimate Slightly decreased Anisocytosis 1+ Ovalocytes 1+ Schistocytes None seen Puncture Site Right radial ABG pH 7.245 L* ABG pCO2 63.5 H* ABG pO2 125.0 H ABG PO2/FiO2 Ratio 1.79 ABG HCO3 26.9 H ABG O2 Saturation 97.8 ABG O2 Content 17.4 ABG Base Excess -1.6 A-a Gradient 305.8 Oxyhemoglobin 96.2 Carboxyhemoglobin Methemoglobin Reduced Hemoglobin Total Hemoglobin 12.7 O2 Delivery Device High flow therapy O2 Liters/Min 40.0 FiO2 70 Expiratory Pressure Inspiratory Pressure Sodium 135 L Potassium 4.0 Chloride 102 Carbon Dioxide 28 Anion Gap 5 BUN 46 H Creatinine 2.52 H Estim Creat Clear Calc 41 Estimated GFR 25 L Glucose 238 H POC Capillary Glucose 222 H Hemoglobin A1c Calcium 8.3 L Phosphorus 4.1 Magnesium 1.8 Total Bilirubin 0.9 AST 42 ALT 18 Alkaline Phosphatase 68 Troponin I C-Reactive Protein 29.5 H NT-Pro-B Natriuret Pep 4930 H Total Protein 5.8 L Albumin 2.9 L Procalcitonin 4.3 TSH 2.160 Free T4 0.97 05/15/25 05/15/25 05/15/25 05:56 07:15 09:09 WBC RBC Hgb Hct MCV MCH MCHC RDW Plt Count MPV Immature Gran % (Auto) Neut % (Auto) Lymph % (Auto) Rice % (Auto) Eos % (Auto) Baso % (Auto) Lymph # (Auto) Rice # (Auto) Eos # (Auto) Baso # (Auto) Abs Immat Gran (auto) Absolute Neuts (auto) Absolute Nucleated RBC Band Neutrophils % Nucleated RBC % Platelet Estimate Anisocytosis Ovalocytes Schistocytes Puncture Site Right radial Left radial ABG pH 7.209 L* 7.196 L* ABG pCO2 70.4 H* 70.2 H* ABG pO2 71.5 L 83.6 ABG PO2/FiO2 Ratio 1.79 2.32 ABG HCO3 27.5 H 26.6 H ABG O2 Saturation 90.3 L 93.4 L ABG O2 Content 16.3 17.4 ABG Base Excess -1.9 -3.0 A-a Gradient 132.7 91.7 Oxyhemoglobin 89.6 L 92.7 Carboxyhemoglobin 1.6 Methemoglobin 0.3 Reduced Hemoglobin 8.5 H Total Hemoglobin 12.9 13.3 O2 Delivery Device High flow therapy Bipap O2 Liters/Min 40.0 Not Reportable FiO2 40 36 Expiratory Pressure 16 Inspiratory Pressure 22 Sodium Potassium Chloride Carbon Dioxide Anion Gap BUN Creatinine Estim Creat Clear Calc Estimated GFR Glucose POC Capillary Glucose 237 H Hemoglobin A1c Calcium Phosphorus Magnesium Total Bilirubin AST ALT Alkaline Phosphatase Troponin I C-Reactive Protein NT-Pro-B Natriuret Pep Total Protein Albumin Procalcitonin TSH Free T4 05/15/25 05/15/25 11:26 11:35 WBC RBC Hgb Hct MCV MCH MCHC RDW Plt Count MPV Immature Gran % (Auto) Neut % (Auto) Lymph % (Auto) Rice % (Auto) Eos % (Auto) Baso % (Auto) Lymph # (Auto) Rice # (Auto) Eos # (Auto) Baso # (Auto) Abs Immat Gran (auto) Absolute Neuts (auto) Absolute Nucleated RBC Band Neutrophils % Nucleated RBC % Platelet Estimate Anisocytosis Ovalocytes Schistocytes Puncture Site Right radial ABG pH 7.224 L* ABG pCO2 62.8 H* ABG pO2 83.2 ABG PO2/FiO2 Ratio 2.08 ABG HCO3 25.4 ABG O2 Saturation 93.9 L ABG O2 Content 16.6 ABG Base Excess -3.3 A-a Gradient 129.8 Oxyhemoglobin 93.1 Carboxyhemoglobin 1.6 Methemoglobin 0.3 Reduced Hemoglobin 5.0 Total Hemoglobin 12.6 O2 Delivery Device Bipap O2 Liters/Min Not Reportable FiO2 40 Expiratory Pressure 10 Inspiratory Pressure Not Reportable Sodium Potassium Chloride Carbon Dioxide Anion Gap BUN Creatinine Estim Creat Clear Calc Estimated GFR Glucose POC Capillary Glucose 291 H Hemoglobin A1c Calcium Phosphorus Magnesium Total Bilirubin AST ALT Alkaline Phosphatase Troponin I C-Reactive Protein NT-Pro-B Natriuret Pep Total Protein Albumin Procalcitonin TSH Free T4
[2025-05-15] MEDS: VANCOMYCIN 1,500 MG/NS 500 ML 1,500 MG/500 ML BAG 250 MG IVPB (15:27)
--- NOTE | 2025-05-15 15:41 | PC.NURSE ---
On 05/15/25, the student, Rae Valladares, provided care and completed [facility] documentation on this patient. I have reviewed the student's documentation and agree with the findings.Charan, MSN, RN
[2025-05-15] MEDS: METOPROLOL TARTRATE 12.5 MG TABLET PO (21:15)
[2025-05-15] MEDS: DICLOFENAC SODIUM 1% 100 GM GEL (*BKC) 1 APPLIC TOPICAL (21:15)
[2025-05-15] MEDS: INSULIN GLARGINE (*BKC) 100 UNITS/ML 60 UNITS SUB-Q (21:18)
[2025-05-16] VITALS (27 sets, daily range): BP systolic 104–126; BP diastolic 50–67; PULSE 83–103; RESP 16–22; TEMP 36.7–37.2; O2SAT 92–100
[2025-05-16] MEDS: metroNIDAZOLE 500 MG/ISO 100ML 500 MG/100 ML BAG 100 MG IVPB ×4 (02:07→21:28)
[2025-05-16] MEDS: IPRATROPIUM 0.5 MG/ALBUTEROL SULFATE 2.5 MG (BASE) AMPUL.NEB 3 ML INHALATION ×4 (02:47→20:19)
[2025-05-16 05:02] LABS: Hematocrit 38.3 % (42.0-52.0); Hemoglobin 11.4 g/dL (14.0-18.0); Immature Granulocyte Percent A 1.7 % (0-0.5); Lymphocytes Absolute Auto 0.74 K/mm3 (0.9-3.2); Mean Corpuscular HGB Conc 29.8 g/dl (32-36); Mean Corpuscular Hemoglobin 28.0 pg (26-34); Mean Corpuscular Volume 94.1 fl (80-100); Nucleated Red Blood Cells Absolute Auto 0.000 K/mm3 (0.0-0.012); Nucleated Red Blood Cells Perc 0.0 % (0.0-0.2); Platelet Count Result 135 k/mm3 (150-375); Red Blood Count 4.07 M/mm3 (4.6-6.20); White Blood Count 21.0 K/mm3 (4.5-10.0)
[2025-05-16 05:16] LABS: Alanine Aminotransferase 22 U/L (6-50); Albumin Level 3.0 g/dL (3.5-5.1); Alkaline Phosphatase 81 U/L (38-126); Anion Gap 8 mmol/L (4-12); Aspartate Amino Transferase 34 U/L (17-59); Bilirubin,Total 0.4 mg/dL (0.2-1.3); Blood Urea Nitrogen 67 mg/dL (9-20); Calcium 8.5 mg/dL (8.4-10.2); Carbon Dioxide 28 mmol/L (22-30); Chloride 103 mmol/L (98-107); Estimated CRCL calculation 32 ml/min; Estimated Glomerular Filt Rate 19; Glucose 369 mg/dL (65-110); Magnesium 1.9 mg/dL (1.6-2.3); Potassium 5.0 mmol/L (3.4-5.0); Sodium 139 mmol/L (137-145); Total Protein 6.0 g/dL (6.3-8.2)
[2025-05-16 05:34] LABS: Alveolar/Arterial O2 Gradient 125.0 mmHg; Fractional Inspired Oxygen 40 %; HCO3 ABG 24.9 mEq/l (22.0-26.0); Oxygen Content ABG 16.6 %vol (16.0-22.0); Oxygen Saturation ABG 96.1 % (95.0-100.0); PCO2 ABG 56.7 mmHg (35.0-45.0); PO2 ABG 95.0 mmHg (80.0-100.0); PO2 FiO2 Ratio Arterial Blood 2.38 %
[2025-05-16 05:40] LABS: Modified Allen's Test Pass; Site Drawn RIGHT RADIAL
--- NOTE | 2025-05-16 05:42 | PCRCNOTE ---
ABG at 0532 drawn while on AVAPS via V60 with settings rate 20, Vt 550, +10, IPAP 11-25, Ti 1.0, Rise 5, 40%; sporadic pauses for oral meds, mask adjustment, wet the whistle, etc
--- NOTE | 2025-05-16 05:54 | ECG_ITS ---
Test Date: 2025-05-16 06:01:44 Measurements Intervals [place] [facility] Rate: 85 P: 86 CT: 178 QRS: -20 QRSD: 120 T: 69 QT: 365 QTc: 435 Interpretive Statements SINUS RHYTHM INFERIOR INFARCT, AGE INDETERMINATE ANTEROSEPTAL INFARCT, AGE INDETERMINATE BORDERLINE T WAVE ABNORMALITY- HIGH LATERAL LEADS BASELINE ARTIFACT- I, III, AVR, AVL, AVF, V1-V6 ABNORMAL ECG Compared to ECG 05/14/2025 13:19:56 Atrial flutter no longer present Electronically Signed On 05-16-2025 06:28:22 CDT by Hema Emery D.O.
[2025-05-16] MEDS: CLOPIDOGREL BISULFATE 75 MG TABLET PO (08:27)
[2025-05-16] MEDS: OMEGA 3 POLYUNSAT FATTY ACIDS 1 GM CAP PO ×2 (08:27→20:56)
[2025-05-16] MEDS: METOPROLOL TARTRATE 12.5 MG TABLET PO ×2 (08:27→20:57)
[2025-05-16] MEDS: PANTOPRAZOLE 40 MG TABLET PO (08:27)
[2025-05-16] MEDS: GABAPENTIN 300 MG CAPSULE 600 MG PO ×2 (08:27→20:56)
[2025-05-16] MEDS: CEFEPIME 2 GM in SODIUM CHLORIDE 0.9% IV 50 ML 100 ML IVPB ×2 (08:29→20:50)
[2025-05-16] MEDS: CYANOCOBALAMIN 1,000 MCG TABLET 1000 MCG PO (08:29)
[2025-05-16] MEDS: LORATADINE 10 MG TABLET PO (08:29)
[2025-05-16] MEDS: ASPIRIN 81 MG ENTERIC TABLET PO (08:29)
[2025-05-16] MEDS: ATORVASTATIN 40 MG TABLET 80 MG PO (08:29)
[2025-05-16] MEDS: INSULIN ASPART (*BKC) 100 UNITS/ML 10 UNITS SUB-Q ×3 (08:30→16:47)
[2025-05-16] MEDS: INSULIN ASPART (*BKC) 100 UNITS/ML SUB-Q ×3 (08:30→16:46)
--- NOTE | 2025-05-16 08:31 | P.PNPL_ITS ---
Progress Note: A&P Assessment and Plan (1) Acute on chronic respiratory failure with hypoxia and hypercapnia: Code(s): J96.21 - Acute and chronic respiratory failure with hypoxia; J96.22 - Acute and chronic respiratory failure with hypercapnia Status: Acute Assessment and Plan: Patient with morbid obesity, BMI 66.4, coronary artery disease status post stents and TAVR on 03/2020, CKD with baseline creatinine 1.5-2, obstructive sleep apnea requiring BiPAP 22/16 with 4 L bleed in. Patient is maintained on BiPAP no rate, pressures 22/16 and 4 L bleed in. TSH on 05/15/2025 2.16. Most recent download in the chart: Download 12/25/2023 through 03/23/2020 for through [employer]. Patient is on BiPAP spontaneous rate, pressures 22/16. Usage days greater than or equal to 4 hours is 88%. Average usage on days used is 5 hours and 49 minutes. AHI 18.2, apnea index 17.9, hypopnea index 0.3. Median leak 29.1, 95th percentile leak 62.4, maximal leak 98.5. Central apnea index 2.1. Median tidal volume 317, median respiratory rate 13. Median minute ventilation 4.8. I interpret this download as adequate compliance, high AHI, high leak, low tidal volume, low minute ventilation. Patient presents now with altered mental status, initial blood gas on BiPAP 22/16 with a rate of 16 was 7.37/42/74. patient then had an emesis episode with the mask on and was taken off BiPAP with a blood gas on 8 L 7.24/65/84. He improved and was placed back on BiPAP rate of 16, pressures 22/16 and 36% FiO2 and after 3 hours his blood gas was 7.20/70/84. When I enter the room the norberto дмитирй had a high leak and said the mask and machine were uncomfortable. Switched him to a noninvasive ventilator mode with the AVAPS mode and adjusted the settings to come for resulting in a rate of 20, tidal volume 550, EPAP 10, minimal inspiratory pressure 11, maximal inspiratory pressure 25, inspiratory time 1.0, rise of 5 which is the slowest and 40% FiO2. Patient said this was comfortable. 05/15/25: Plan: Patient is awake and communicative. He does doze off but says he is just tired and taking a nap. I will check an ABG after 1 hour to reassess his hypercarbic respiratory failure. Patient's ABG deteriorated after he had a vomiting episode and he may have aspirated. Currently on vancomycin, cefepime both started 05/14/2025. Flagyl and doxycycline started 05/15/2025. I will send respiratory pathogen panel, urine for Legionella, urine for pneumococcal, serum for me mycoplasma IgM. He has no history of COPD, he is a never smoker, no history of asthma. He was given Solu-Medrol 60 mg IV x1 and I do not see a need to continue this medicine. He is empirically placed on DuoNebs q.6 hours and will continue this for the time being. Patient has peripheral edema and agree with as aggressive diuresis as tolerated by his cardiac and renal systems. Currently the patient is on Bumex 2 mg IV b.i.d.. He is positive 1 L since admission. His weight today is 198 lb. Will attempt to obtain a more recent download From patient's [employer] company, [employer] respiratory care, to assess patient's compliance. Later in day I obtained download from [employer] 02/13/2025 through 05/13/2025. Patient is on BiPAP spontaneous rate, pressures 22/16. Usage days greater than or equal to 4 hours is 86%. Average usage on days used is 5 hours and 34 minutes. AHI 20.7. Apnea index 20.6, hypopnea index 0.1. Central apnea index 1.0. Median leak 53.0. Ninety-fifth percentile leak 92.8. Maximum leak 114.6. I interpret this download as adequate compliance, high AHI, and high leak. Later in the day patient had an echocardiogram which is a technically difficult study. LVEF was 30-35% with diastolic dysfunction. Normal right ventricular size and function, normal right atrial size, no tricuspid regurg, normal aortic valve with no aortic stenosis or aortic regurgitation. 05/16/2025: When I enter the room the patient was on noninvasive ventilation with the AVAPS mode and says that the air was going in too fast and I decreased his inspiratory time from 1.0 to 1.2. He said this was improved. He said this machine felt like his home machine. He told me he was ready to come off the machine. I placed him on 5 L nasal cannula and then decreased him to 3 L nasal cannula saturations 93%. The patient was awake stating he was thirsty and stating he was breathing normal with no cough, phlegm or hemoptysis. He denied fever, chills, rigors. He has been afebrile for 32 hours. White blood cell count 21.0, creatinine 3.18, BUN 67. Yesterday he was -410 mL and cumulative he is positive 440 since admission. His weight is 197 kg. Chest x-ray today shows small lung volumes, cardiomegaly, bibasilar interstitial alveolar infiltrates with no change since 05/15/2025. Patient wore the hospital noninvasive ventilation with the AVAPS mode settings as above with a blood gas of 7.26/57/95. Plan: Mental status has returned to baseline and patient states he is breathing at his baseline. ABG on maximal rate of 20 and tidal volume 550 remains with acute on chronic respiratory acidosis, patient is also in renal failure with creatinine of 3.18 and a serum bicarb of 28. I will continue current AVAPS settings and perform overnight oximetry on 36% FiO2 and an ABG prior to removal in the morning. Patient is positive 440 mL since admission but his creatinine now his increased to 3.18 and I have placed his diuretics on hold. Currently he is on vancomycin and cefepime since 05/14/2025 and doxycycline and Flagyl since 05/15/2025. MRSA swab reordered. Respiratory pathogen panel, urine Legionella, urine pneumococcal and serum mycoplasma IgM pending. Discussed with Dr. Mays. Will follow with you. Subjective Date/time seen: 05/16/25 08:31 Interval history: 05/15/2025: This is a new pulmonary consult for acute respiratory failure. 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 Regarding patient's coronary artery disease he had a PTCA of his LAD and RCA in 2009. Patient had a TAVR in March of 2020. Patient saw his manager data Dr. Chappell on 04/13/2025 it said that he was stable with no problems from his coronary artery disease and TAVR perspective, the note said he has obstructive sleep apnea but office CPAP no medication changes were made. Regarding his follicular lymphoma stage I diagnosed in the groin on 01/25 with the ultrasounded gaudencio I did a biopsy completed chemotherapy and immuno therapy on . Saw his oncologist on 12/01/2024 with no evidence of recurrence. Followed in the Pulmonary Clinic in last seen on 03/28/2024 for obstructive sleep apnea on BiPAP and chronic respiratory failure related to obesity hypoventilation. States he is compliant with BiPAP 22/16 and 4 L bleed in. He was sleeping well and had no concerns. BiPAP was working fine. Nocturia couple times. He complained of a dry cough and was prescribed Claritin and Flonase. Very severe obstructive sleep apnea evidenced by overall AHI 106.6 on a sleep study in October 2021. This was followed by a BiPAP titration study recommending [id number] with 2L/min O2 bleed in October 2021. Download 12/25/2023 through 03/23/2020 for through [employer]. Patient is on BiPAP spontaneous rate, pressures 22/16. Usage days greater than or equal to 4 hours is 88%. Average usage on days used is 5 hours and 49 minutes. AHI 18.2, apnea index 17.9, hypopnea index 0.3. Median leak 29.1, 95th percentile leak 62.4, maximal leak 98.5. Central apnea index 2.1. Median tidal volume 317, median respiratory rate 13. Median minute ventilation 4.8. I interpret this download as adequate compliance, high AHI, high leak, low tidal volume, low minute ventilation. Recommend follow-up 6 months. 05/14/2025: Patient brought to the emergency room for altered mental status and lethargy. History obtained from the family. In the emergency department he was lethargic with a blood pressure 119/59, heart rate 113, temperature 100.2?, room air saturations 93%. He is placed on 2.5 L and his saturations were 93%. White blood cell count 90 2 minutes 18.4, creatinine 2.13, BUN 44, serum bicarb 27, BNP 1120, COVID, influenza, RSV RT PCR assay negative, UA was consistent with a UTI. Patient had a CT scan of abdomen and pelvis which showed atelectasis in the bases but no pleural effusions, focal consolidations or interstitial lung disease. patient given IV fluids and admitted to the hospital with a urinary tract infection. He was more awake and communicative when talking to the hospitalist who admitted him. Patient was placed on his BiPAP settings of 22/16 and 4 L bleed in and had an ABG of 7.37/42/74. 05/15/25: About 5 hours later the patient vomited with his mask on, and was taken off BiPAP and placed on 8 L nasal cannula the blood gas of 7.24/65/84. The patient was then placed on Airvo 40 L, 40% with blood gas of 7.21/70/72. Patient was then placed back on his BiPAP 22/16 with 36% FiO2 and after 3 hours his blood gas was 7.20/70/84. When air new entered the room the patient was awake, he knew his name, show me 2 fingers and wiggled his toes. He denied being in pain and said he had no infectious complaints prior to coming to the hospital. He denied fever, chills, phlegm production or hemoptysis. He states he wears a BiPAP machine at night but does not know his DME company. Says he uses 4 L at night bleed in. The patient was on BiPAP rate of 16 breathing 20, pressures 22/16 with a tidal volume of 531 and minute ventilation of 8.7. His leak was 107 and his saturations were 92. The patient said this machine was not as comfortable as his home machine and I switched him to a noninvasive ventilator mode with the AVAPS mode and adjusted the settings to come for resulting in a rate of 20, tidal volume 550, EPAP 10, minimal inspiratory pressure 11, maximal inspiratory pressure 25, inspiratory time 1.0, rise of 5 which is the slowest and 40% FiO2. Patient said this was comfortable. Later in day I obtained download from [employer] 02/13/2025 through 05/13/2025. Patient is on BiPAP spontaneous rate, pressures 22/16. Usage days greater than or equal to 4 hours is 86%. Average usage on days used is 5 hours and 34 minutes. AHI 20.7. Apnea index 20.6, hypopnea index 0.1. Central apnea index 1.0. Median leak 53.0. Ninety-fifth percentile leak 92.8. Maximum leak 114.6. I interpret this download as adequate compliance, high AHI, and high leak. Later in the day patient had an echocardiogram which is a technically difficult study. LVEF was 30-35% with diastolic dysfunction. Normal right ventricular size and function, normal right atrial size, no tricuspid regurg, normal aortic valve with no aortic stenosis or aortic regurgitation. 05/16/2025: When I enter the room the patient was on noninvasive ventilation with the AVAPS mode and says that the air was going in to fast and I decreased his inspiratory time from 1.0-1.2. He said this was improved. He said this machine felt like his home machine. He told me he was ready to come off the machine. I placed him on 5 L nasal cannula and then decreased him to 3 L nasal cannula saturations 93%. The patient was awake stating he was thirsty and stating he was breathing normal with no cough, phlegm or hemoptysis. He denied fever, chills, rigors. He has been afebrile for 32 hours. White blood cell count 21.0, creatinine 3.18, BUN 67. Yesterday he was -410 mL and cumulative he is positive 440 since admission. His weight is 197 kg. Chest x-ray today shows small lung volumes, cardiomegaly, bibasilar interstitial alveolar infiltrates with no change since 05/15/2025. Patient wore the hospital noninvasive ventilation with the AVAPS mode settings as above with a blood gas of 7.26/57/95. DATA 05/14/25: CT ABDOMEN AND PELVIS WITHOUT CONTRAST Clinical History: septic; UTI, repeated with tighter straps and repositioning Comparison: 09/24/2021 Technique: Unenhanced axial images lung bases to symphysis pubis Coronal, sagittal reformats CT images acquired with automatic exposure control for dose reduction DLP: 3856 mGy-cm Findings: Without intravenous contrast, sensitivity for detecting visceral parenchymal abnormalities decreased. Portions of left hemiabdomen excluded from images Lung bases: Dependent atelectasis. Visualized heart and pericardium: Coronary artery calcification. Liver: Enlarged. Steatosis. Gallbladder: Removed. Spleen: Unremarkable. Pancreas: Atrophy. Adrenal glands: Unremarkable. Kidneys: Right kidney- No hydronephrosis. No renal stones. Left kidney- No hydronephrosis. No renal stones. Distal esophagus/stomach: Unremarkable. Small bowel loops: Normal caliber and wall thickness. Colon: Diverticula. Normal caliber and wall thickness. Appendix not seen. Nodes: Prominent partially calcified nodes right groin. Peritoneum: No ascites. No free intraperitoneal air. Urinary bladder: Mild wall thickening but under distended. Prostate: Unremarkable. Bones: No acute bony abnormality. Soft tissues: Midline abdominal wall hernia mesh. Unopacified abdominal aorta: No aneurysmal dilatation. IMPRESSION: 1. No acute findings. 03/05/22 - Overnight oximetry on BiPAP 22/16 with 3L/min O2 - Time spent at or below 88% saturation was 33 min. He was advised to increase liter flow to 4L/min. 02/11/22 - Overnight oximetry on BiPAP 22/16 with 2L/min bleed in - time spent at or below 88% saturation was 54 min. 11/06/21 - BiPAP titration - BiPAP [id number] with 2L/min O2 bleed in was recommended. 10/29/21 - Split PSG - Very severe obstructive sleep apnea, overall AHI 106.6 events per hour. 09/24/2021: Echo Summary 1. Technically difficult study with limited views. Regional wall motion assessment limited despite definity contrast enhancement due to poor endomyocardial border definition. 2. Left ventricular chamber dimension is normal. 3. Left ventricular systolic function is normal, estimated at 55-60%. 4. The left ventricular diastolic function is grade I diastolic dysfunction. 5. There is no increased left ventricular wall thickness. 6. There is mild aortic valve stenosis with a peak velocity of 307.88 cm/s, mean gradient of 18 mmHg, and aortic valve area of 1.7cm2. 7. The aortic valve is not well visualized. Left Ventricle Technically difficult study with limited views. Regional wall motion assessment limited despite definity contrast enhancement due to poor endomyocardial border definition. Left ventricular chamber dimension is normal. Left ventricular systolic function is normal, estimated at 55-60%. There is no increased left ventricular wall thickness. The left ventricular diastolic function is grade I diastolic dysfunction. Right Ventricle Right ventricular chamber dimension is normal. Right ventricular systolic function is normal. Left Atria Left atrial chamber dimension is normal. Right Atria Right atrial chamber dimension is normal. RVSP equals 18 01/17/2021: EXAMINATION: CT chest abdomen pelvis w con EXAM DATE: 01/17/2021 10:08 INDICATION: Follicular lymphoma, inguinal region. TECHNIQUE: Spiral CT of the chest, abdomen and pelvis was performed following intravenous injection of 100 mL Omnipaque 350. Axial, coronal and sagittal images chest, abdomen and pelvis were reviewed. Coronal maximum intensity pixel images of chest reviewed. The dose-length product (DLP) for this examination was 1990.84 mGy-cm. The exposure was tailored according to patient size (auto mA exposure control), and iterative reconstruction (ASIR) was used as additional dose reduction technique. Comparison is made to prior examination from chest CT 07/21/2020, chest abdomen pelvis CT 01/18/2020. FINDINGS: CHEST: Previously seen bibasilar pneumonia has resolved. There are some residual linear opacities consistent with scarring or atelectasis. Some scattered left apical granulomata. Aortic stent or valve, new compared to prior study. There are no pleural or pericardial effusions. Tracheobronchial tree is patent. There is no mediastinal, hilar or axillary lymphadenopathy. There is no pneumothorax. Heart normal in size. Probable left coronary arterial stent. Right-sided portacatheter. ABDOMEN PELVIS: There is right inguinal lymph node with some coarse calcifications measuring 5.2 x 2.8 cm (previously about 6 x 3 cm), mild interval decrease in size compared to previous study. This is consistent with treated lymphoma. No other pathologically enlarged lymph nodes identified. Anterior abdominal wall mesh. The liver, spleen, adrenal glands and pancreas are unremarkable. Gallbladder is unremarkable. No biliary obstruction. Portal and splenic veins are patent. Kidneys enhance symmetrically. There is no hydr onephrosis. The prostate is unremarkable. The bladder is unremarkable. The appendix is not positively visualized. There is no pericecal inflammatory change to suggest appendicitis. The stomach and small bowel are unremarkable. There is expected amount of colonic stool. No free intraperitoneal gas. There are no osteoblastic or osteolytic lesions identified. Moderate to severe lumbar disc disease. IMPRESSION: 1. Enlarged right inguinal lymph node, but with mild interval decrease in size. Treated lymphoma. 2. Chronic and surgical changes. Review of Systems Constitutional: Constitutional: Reports no additional constitutional complaints Eyes: Eyes: Reports no additional eye complaints ENT: Reports system reviewed and no additional complaints, except as documented Cardiovascular: Cardiovascular: Reports no additional cardiovascular complaints Respiratory: Respiratory: Reports no additional respiratory complaints Gastrointestinal: Gastrointestinal: Reports no additional gastrointestinal complaints Musculoskeletal: Musculoskeletal: Reports no additional musculoskeletal complaints Neurologic: Reports system reviewed and no additional complaints, except as documented Psychiatric: Psychiatric: Reports no additional psychiatric complaints Endocrine: Endocrine: Reports no additional endocrine complaints Hematologic/Lymphatic: Hematologic/Lymphatic: Reports no additional hematologic/lymphatic complaints Allergic/Immunologic: Allergic/Immunologic: Reports no additional allergic/immunologic complaints Exam Const: General: cooperative, comfortable and no acute distress Orientation/consciousness: oriented to person, oriented to place and oriented to time HENMT: Head: normal to inspection Ears: hearing grossly normal bilaterally Eyes: General: appearance normal, both eyes and all related structures Neck: Neck: normal visual inspection Chest: Chest palpation & inspection: normal inspection of the chest Resp: Effort & Inspection: normal respiratory effort and able to speak in complete sentences Auscultation: no crackles, no rales, no rhonchi, no wheezes and diminished lung sounds Other: Morbidly obese Cardio: Other: regular rate GI: Inspection: normal to inspection Other: no tenderness to deep palpation. Morbidly obese. Skin: General skin exam: normal color Neuro: General: oriented to person, oriented to place and oriented to time Extrem: General: normal to inspection and edema Other: improved edema Psych: Appearance: grossly normal Objective Data Vital Signs Vital Signs: Vital Signs - 24 hr 05/15/25 08:34 05/15/25 08:35 05/15/25 10:00 Temperature Pulse Rate 106 H 106 H 114 H Respiratory Rate 19 19 Blood Pressure Pulse Oximetry 93 Oxygen Delivery BiPAP Oxygen Flow Rate Fraction of Inspired Oxygen 05/15/25 10:15 05/15/25 12:00 05/15/25 12:00 Temperature 37.3 C Pulse Rate 108 H 91 Respiratory Rate 20 24 H Blood Pressure 116/55 L Pulse Oximetry 92 91 91 Oxygen Delivery BiPAP BiPAP Oxygen Flow Rate Fraction of Inspired Oxygen 36 05/15/25 12:00 05/15/25 14:00 05/15/25 14:46 Temperature Pulse Rate 104 H 97 96 Respiratory Rate 19 Blood Pressure Pulse Oximetry Oxygen Delivery Oxygen Flow Rate Fraction of Inspired Oxygen 05/15/25 14:48 05/15/25 15:00 05/15/25 15:35 Temperature 37.1 C Pulse Rate 96 102 H 96 Respiratory Rate 21 H 21 H 16 Blood Pressure 112/53 L Pulse Oximetry 93 95 Oxygen Delivery BiPAP Oxygen Flow Rate Fraction of Inspired Oxygen 05/15/25 16:00 05/15/25 16:00 05/15/25 18:00 Temperature Pulse Rate 94 95 Respiratory Rate Blood Pressure Pulse Oximetry 94 Oxygen Delivery BiPAP Oxygen Flow Rate Fraction of Inspired Oxygen 36 05/15/25 20:00 05/15/25 20:00 05/15/25 20:00 Temperature 37.1 C Pulse Rate 96 96 Respiratory Rate 18 Blood Pressure 102/59 L Pulse Oximetry 95 93 Oxygen Delivery BiPAP Oxygen Flow Rate Fraction of Inspired Oxygen 40 05/15/25 20:03 05/15/25 20:03 05/15/25 20:17 Temperature Pulse Rate 92 92 92 Respiratory Rate 22 H 20 20 Blood Pressure Pulse Oximetry 97 97 Oxygen Delivery BiPAP BiPAP Oxygen Flow Rate Fraction of Inspired Oxygen 40 05/15/25 21:15 05/15/25 22:00 05/16/25 00:00 Temperature 36.9 C Pulse Rate 93 88 86 Respiratory Rate 16 Blood Pressure 105/55 L Pulse Oximetry 97 Oxygen Delivery Oxygen Flow Rate Fraction of Inspired Oxygen 05/16/25 00:00 05/16/25 00:00 05/16/25 02:00 Temperature Pulse Rate 88 86 Respiratory Rate Blood Pressure Pulse Oximetry 96 Oxygen Delivery BiPAP Oxygen Flow Rate Fraction of Inspired Oxygen 40 05/16/25 02:47 05/16/25 04:00 05/16/25 04:00 Temperature 36.7 C Pulse Rate 84 88 Respiratory Rate 20 16 Blood Pressure 119/61 Pulse Oximetry 98 95 Oxygen Delivery BiPAP Oxygen Flow Rate Fraction of Inspired Oxygen 40 05/16/25 04:00 05/16/25 06:00 05/16/25 07:40 Temperature Pulse Rate 83 87 88 Respiratory Rate 20 Blood Pressure Pulse Oximetry Oxygen Delivery Oxygen Flow Rate Fraction of Inspired Oxygen 05/16/25 07:52 05/16/25 07:53 05/16/25 08:12 Temperature Pulse Rate 88 90 Respiratory Rate 20 20 Blood Pressure Pulse Oximetry 98 92 Oxygen Delivery BiPAP Nasal Cannula Oxygen Flow Rate 3 Fraction of Inspired Oxygen 05/16/25 08:27 Temperature Pulse Rate 94 Respiratory Rate Blood Pressure Pulse Oximetry Oxygen Delivery Oxygen Flow Rate Fraction of Inspired Oxygen Intake/Output Intake/Output: Intake & Output 05/13/25 05/14/25 05/15/25 05/16/25 23:59 23:59 23:59 23:59 Intake Total 1600 840 200 Output Total 300 1250 550 Balance 1300 -410 -350 Meds/Results Medications: Active Medications Generic Name Dose Route Start Last Admin Trade Name Freq PRN Reason Stop Dose Admin Acetaminophen 1,000 mg 05/14/25 23:34 05/14/25 23:56 Acetaminophen 500 Mg Tablet PO 1,000 mg Q6H PRN Administration Mild Pain (1-3) or Fever Albuterol/Ipratropium 3 ml 05/14/25 20:00 05/16/25 07:51 Ipratropium 0.5 Mg/Albuterol Sulfate 2.5 Mg (Base) Ampul.Neb 3 Ml INHALATION 3 ml Q6HRT SCHUYLER Administration Aspirin 81 mg 05/15/25 09:00 05/16/25 08:29 Aspirin 81 Mg Enteric Tablet PO 81 mg DAILY SCHUYLER Administration Atorvastatin Calcium 80 mg 05/15/25 09:00 05/16/25 08:29 Atorvastatin 40 Mg Tablet PO 80 mg DAILY SCHUYLER Administration Bumetanide 2 mg 05/15/25 09:30 05/15/25 17:52 Bumetanide Inj 2.5 Mg/10 Ml Vial IV PUSH 2 mg On Hold: 05/16/25 07:16 BID SCHUYLER Administration Clopidogrel Bisulfate 75 mg 05/15/25 09:00 05/16/25 08:27 Clopidogrel Bisulfate 75 Mg Tablet PO 75 mg QAM SCHUYLER Administration Cyanocobalamin 1,000 mcg 05/15/25 09:00 05/16/25 08:29 Cyanocobalamin 1,000 Mcg Tablet PO 1,000 mcg QAM SCHUYLER Administration Dextrose 12.5 gm 05/14/25 12:48 Dextrose 50% 25 Gm/50 Ml Syringe IV PUSH PRN PRN Hypoglycemia Protocol Diclofenac Sodium 1 applic 05/14/25 21:00 05/15/25 21:15 Diclofenac Sodium 1% 100 Gm Gel (*Bkc) TOPICAL 1 applic QID SCHUYLER Administration Diphenoxylate HCl/Atropine 1 tablet 05/14/25 19:10 Diphenoxylate/Atropine (*Crx) 2.5 Mg Tablet PO QID PRN Diarrhea Enoxaparin Sodium 40 mg 05/14/25 21:00 05/15/25 21:15 Enoxaparin 40 Mg/0.4 Ml Syringe SUB-Q 40 mg Q12HR SCHUYLER Administration Fish Oil 1 gm 05/14/25 21:00 05/16/25 08:27 [place] 3 Polyunsat Fatty Acids 1 Gm Cap PO 1 gm Q12HR SCHUYLER Administration Fluoxetine HCl 20 mg 05/14/25 21:00 05/15/25 21:32 Fluoxetine Hcl 20 Mg Capsule PO Not Given HS SCHUYLER Fluticasone Propionate 1 spray 05/15/25 09:00 05/15/25 17:51 Fluticasone Propionate 0.05% Na Spr 16 Gm Btl (*Bkc) NASAL Not Given BID [facility] Gabapentin 600 mg 05/14/25 21:00 05/16/25 08:27 Gabapentin 300 Mg Capsule PO 600 mg Q12HR [facility] Administration Glucagon 1 mg 05/14/25 12:48 Glucagon For Inj 1 Mg Vial IM PRN PRN Hypoglycemia Protocol Glucose 15 gm 05/14/25 12:48 Glucose Oral Gel 15 Gm Of Glucse In 37.5 Gm Tube PO PRN PRN Hypoglycemia Protocol Cefepime HCl 2 gm/ Sodium 50 mls @ 100 mls/hr 05/14/25 21:00 05/16/25 08:29 Chloride IVPB 100 mls/hr Q12HR [facility] Administration Vancomycin HCl 1,500 mg in 500 mls @ 250 mls/hr 05/15/25 12:00 05/15/25 15:27 Vancomycin 1,500 Mg/Ns 500 Ml IVPB 250 mls/hr Q24H [facility] Administration Dextrose 1,000 mls @ 100 mls/hr 05/14/25 12:48 Dextrose 5% 1,000 Ml IVPB PRN PRN Hypoglycemia Protocol Metronidazole 500 mg in 100 mls @ 100 mls/hr 05/15/25 09:00 05/16/25 08:30 Flagyl 500 Mg/Iso Soln 100 Ml IVPB 100 mls/hr Q6H [facility] Administration Doxycycline Hyclate 100 mg/ 100 mls @ 100 mls/hr 05/15/25 11:00 05/16/25 00:51 Sodium Chloride IVPB Infused Q12H [facility] Infusion Insulin Aspart 4 - 8 units 05/14/25 17:00 05/16/25 08:30 Insulin Aspart (*Bkc) 100 Units/Ml SUB-Q 6 units TIDWM [facility] Administration Protocol Insulin Aspart 10 units 05/15/25 08:00 05/16/25 08:30 Insulin Aspart (*Bkc) 100 Units/Ml 0.05 units/kg (10 units) 10 units SUB-Q Administration TIDWM [facility] Insulin Glargine 60 units 05/14/25 21:00 05/15/25 21:18 Insulin Glargine (*Bkc) 100 Units/Ml SUB-Q 60 units HS [facility] Administration Loratadine 10 mg 05/15/25 09:00 05/16/25 08:29 Loratadine 10 Mg Tablet PO 10 mg DAILY [facility] Administration Metoprolol Tartrate 12.5 mg 05/14/25 21:00 05/16/25 08:27 Metoprolol Tartrate 12.5 Mg Tablet PO 12.5 mg Q12HR [facility] Administration Miscellaneous Information 0 each 05/15/25 00:01 05/16/25 01:05 Dapagliflozin No Sub Generic? Ok To Sub With Jardiance? XX 06/14/25 00:00 Not Given CLARIFY [facility] Non-Formulary Medication 5 mg 05/15/25 09:00 Dapagliflozin Propanediol [Farxiga] PO 06/14/25 08:59 DAILY [facility] Pantoprazole Sodium 40 mg 05/15/25 09:00 05/16/25 08:27 Pantoprazole 40 Mg Tablet PO 40 mg QAM [facility] Administration Perflutren Lipid Microsphere 0 ml 05/15/25 09:32 Perflutren Lipid Microspheres 1.5 Ml Vial Diluted To 10 Ml Total Volume IV PUSH 05/18/25 09:32 ONCE PRN adequate visualization Protocol Pramipexole Dihydrochloride 1 mg 05/14/25 21:00 05/15/25 21:32 Pramipexole 1 Mg Tablet PO Not Given QHS [facility] Quetiapine Fumarate 50 mg 05/14/25 21:00 05/15/25 21:15 Quetiapine Fumarate 25 Mg Tablet PO 50 mg HS [facility] Administration Tizanidine HCl 4 mg 05/14/25 19:10 Tizanidine Hcl 4 Mg Tablet PO QHS PRN Muscle Spasticity Trazodone HCl 50 mg 05/14/25 21:00 05/15/25 21:32 Trazodone Hcl 50 Mg Tablet PO Not Given HS [facility] Radiology Results: ITS Impressions Abdomen/Pelvis CT 05/14/25 11:30 IMPRESSION: 1. No acute findings. Labs Labs: Laboratory Results - last 24 hr 05/15/25 05/15/25 05/15/25 04:18 09:09 11:26 WBC RBC Hgb Hct MCV MCH MCHC RDW Plt Count MPV Immature Gran % (Auto) Neut % (Auto) Lymph % (Auto) [place] % (Auto) Eos % (Auto) Baso % (Auto) Lymph # (Auto) [place] # (Auto) Eos # (Auto) Baso # (Auto) Abs Immat Gran (auto) Absolute Neuts (auto) Absolute Nucleated RBC Nucleated RBC % Puncture Site Left radial ABG pH 7.196 L* ABG pCO2 70.2 H* ABG pO2 83.6 ABG PO2/FiO2 Ratio 2.32 ABG HCO3 26.6 H ABG O2 Saturation 93.4 L ABG O2 Content 17.4 ABG Base Excess -3.0 A-a Gradient 91.7 Oxyhemoglobin 92.7 Carboxyhemoglobin Methemoglobin Reduced Hemoglobin Total Hemoglobin 13.3 O2 Delivery Device Bipap O2 Liters/Min Not Reportable FiO2 36 Expiratory Pressure 16 Inspiratory Pressure 22 Sodium 135 L Potassium 4.0 Chloride 102 Carbon Dioxide 28 Anion Gap 5 BUN 46 H Creatinine 2.52 H Estim Creat Clear Calc 41 Estimated GFR 25 L Glucose 238 H POC Capillary Glucose 291 H Calcium 8.3 L Phosphorus 4.1 Magnesium 1.8 Total Bilirubin 0.9 AST 42 ALT 18 Alkaline Phosphatase 68 C-Reactive Protein 29.5 H NT-Pro-B Natriuret Pep 4930 H Total Protein 5.8 L Albumin 2.9 L Procalcitonin 4.3 TSH 2.160 Free T4 0.97 05/15/25 05/15/25 05/15/25 11:35 15:26 19:53 WBC RBC Hgb Hct MCV MCH MCHC RDW Plt Count MPV Immature Gran % (Auto) Neut % (Auto) Lymph % (Auto) [place] % (Auto) Eos % (Auto) Baso % (Auto) Lymph # (Auto) [place] # (Auto) Eos # (Auto) Baso # (Auto) Abs Immat Gran (auto) Absolute Neuts (auto) Absolute Nucleated RBC Nucleated RBC % Puncture Site Right radial ABG pH 7.224 L* ABG pCO2 62.8 H* ABG pO2 83.2 ABG PO2/FiO2 Ratio 2.08 ABG HCO3 25.4 ABG O2 Saturation 93.9 L ABG O2 Content 16.6 ABG Base Excess -3.3 A-a Gradient 129.8 Oxyhemoglobin 93.1 Carboxyhemoglobin 1.6 Methemoglobin 0.3 Reduced Hemoglobin 5.0 Total Hemoglobin 12.6 O2 Delivery Device Bipap O2 Liters/Min Not Reportable FiO2 40 Expiratory Pressure 10 Inspiratory Pressure Not Reportable Sodium Potassium Chloride Carbon Dioxide Anion Gap BUN Creatinine Estim Creat Clear Calc Estimated GFR Glucose POC Capillary Glucose 315 H 287 H Calcium Phosphorus Magnesium Total Bilirubin AST ALT Alkaline Phosphatase C-Reactive Protein NT-Pro-B Natriuret Pep Total Protein Albumin Procalcitonin TSH Free T4 05/16/25 05/16/25 05/16/25 04:29 05:23 07:45 WBC 21.0 H RBC 4.07 L Hgb 11.4 L Hct 38.3 L MCV 94.1 MCH 28.0 MCHC 29.8 L RDW 17.7 H Plt Count 135 L MPV 10.6 H Immature Gran % (Auto) 1.7 H Neut % (Auto) 91.3 H Lymph % (Auto) 3.5 L [place] % (Auto) 3.4 Eos % (Auto) 0.0 Baso % (Auto) 0.1 L Lymph # (Auto) 0.74 L [place] # (Auto) 0.7 H Eos # (Auto) 0.0 Baso # (Auto) 0.0 Abs Immat Gran (auto) 0.36 H Absolute Neuts (auto) 19.1 H Absolute Nucleated RBC 0.000 Nucleated RBC % 0.0 Puncture Site Right radial ABG pH 7.260 L* ABG pCO2 56.7 H ABG pO2 95.0 ABG PO2/FiO2 Ratio 2.38 ABG HCO3 24.9 ABG O2 Saturation 96.1 ABG O2 Content 16.6 ABG Base Excess -2.9 A-a Gradient 125.0 Oxyhemoglobin 95.5 Carboxyhemoglobin Methemoglobin Reduced Hemoglobin Total Hemoglobin 12.3 O2 Delivery Device Bipap O2 Liters/Min Not Reportable FiO2 40 Expiratory Pressure 10 Inspiratory Pressure Not Reportable Sodium 139 Potassium 5.0 Chloride 103 Carbon Dioxide 28 Anion Gap 8 BUN 67 H D Creatinine 3.18 H Estim Creat Clear Calc 32 Estimated GFR 19 L Glucose 369 H POC Capillary Glucose 338 H Calcium 8.5 Phosphorus 5.3 H Magnesium 1.9 Total Bilirubin 0.4 AST 34 ALT 22 Alkaline Phosphatase 81 C-Reactive Protein NT-Pro-B Natriuret Pep Total Protein 6.0 L Albumin 3.0 L Procalcitonin TSH Free T4
--- NOTE | 2025-05-16 08:37 | PM.PNCARD ---
Progress Note: A&P Assessment and Plan (1) Elevated troponin: Code(s): R77.8 - Other specified abnormalities of plasma proteins Status: Acute (2) Cardiomyopathy: Qualifiers: Cardiomyopathy type: unspecified Qualified Code(s): I42.9 - Cardiomyopathy, unspecified Code(s): I42.9 - Cardiomyopathy, unspecified Status: Acute (3) CAD (coronary artery disease): Code(s): I25.10 - Atherosclerotic heart disease of [place] coronary artery without angina pectoris Status: Acute (4) Acute on chronic respiratory failure with hypoxia and hypercapnia: Code(s): J96.21 - Acute and chronic respiratory failure with hypoxia; J96.22 - Acute and chronic respiratory failure with hypercapnia Status: Acute (5) Pneumonia: Qualifiers: Laterality: unspecified laterality Lung location: unspecified part of lung Pneumonia type: due to unspecified organism Qualified Code(s): J18.9 - Pneumonia, unspecified organism Code(s): J18.9 - Pneumonia, unspecified organism Status: Acute (6) Morbid obesity with body mass index (BMI) of 50.0 to 59.9 in adult: Code(s): E66.01 - Morbid (severe) obesity due to excess calories; Z68.43 - Body mass index [BMI] 50.0-59.9, adult Status: Acute (7) CKD (chronic kidney disease): Code(s): N18.9 - Chronic kidney disease, unspecified Status: Chronic Plan NSTEMI-Patient with elevated troponin that are flat and not consistent with ACS. Most likely suggestive of demand ischemia in setting of UTI and PNA. His EKG demonstrated a NSR with no acute ST/T wave changes. He does have known history of CAD, but currently chest pain free. Echo does demonstrate decline in EF from 2021, but at this time no invasive w/u is planned given patient acute infection, body habitus and CKD. Would manage medically. Continue aspirin 81mg daily plavix 75 mg daily, atorvastatin 80 mg daily. Acute/Chronic respiratory failure: In the setting of obesity hypoventilation syndrome and pneumonia. Now on O2 NC. BIPAP for all sleep. Pulmonary is following. Pneumonia. Continue antibiotics as per primary team UTI. Antibiotics as per primary team Cardiomyopathy-Echo demonstrated EF of 30-35% with anteroseptal and apex hypokinesis. Last echo in hospital in 2021 reported EF of 55-60%, but echo in office in 2020 demonstrated EF of 35%. Unclear if decline in EF is truly ischemic or related to his acute infectious process. At this time patient will be managed medically in setting of acute infection and worsening CKD. Will continue with diuresis as tolerated/needed. Continue farxiga. On Metoprolol 12.5mg BID, consider Toprol XL 25 mg daily at dc. No ARB/ARNI at this time given his renal function. CHF-acute decompensated combined systolic and diastolic dysfunction. Patient with EF of 30-35%. His CXR yesterday demonstrated pulmonary vascular congestion. He is s/p IV diuresis with good UO overnight and overall improvement in his respiratory status and edema. He may benefit with renal consult to assist in diuresis of this patient as Cr. has worsened overnight. History of CAD. With stent to RCA and LAD in the past. Continue aspirin, plavix and statin. History of TAVR. Chronic Kidney Disease. CR has gone from 2.52-->3.18. Follows OP with nephrology and may benefit with consult. Monitor output closely. Diuretics on hold today Morbid obesity Subjective Date/time seen: 05/16/25 08:37 Interval history: Patient is sitting up in bed, improved this am. Remains on O2 per NC and bipap for all sleep He denies any chest pain or pressure at this time No reports of shortness of breath His edema seems improved to him. Review of Systems Review of Systems: All systems reviewed & are unremarkable except as noted in HPI and below Exam Narrative: General: Alert and oriented x 3. NAD Neck: no JVD Resp: decreased BS bilaterally CV: S1, S2 GI: abdomen round obese, non-tender Extremities: chronic bilateral LE edema Objective Data Vital Signs Vital Signs: Vital Signs - 24 hr 05/15/25 10:00 05/15/25 10:15 05/15/25 12:00 Temperature 37.3 C Pulse Rate 114 H 108 H 91 Respiratory Rate 20 24 H Blood Pressure 116/55 L Pulse Oximetry 92 91 Oxygen Delivery BiPAP Oxygen Flow Rate Fraction of Inspired Oxygen 05/15/25 12:00 05/15/25 12:00 05/15/25 14:00 Temperature Pulse Rate 104 H 97 Respiratory Rate Blood Pressure Pulse Oximetry 91 Oxygen Delivery BiPAP Oxygen Flow Rate Fraction of Inspired Oxygen 36 05/15/25 14:46 05/15/25 14:48 05/15/25 15:00 Temperature Pulse Rate 96 96 102 H Respiratory Rate 19 21 H 21 H Blood Pressure Pulse Oximetry 93 Oxygen Delivery BiPAP Oxygen Flow Rate Fraction of Inspired Oxygen 05/15/25 15:35 05/15/25 16:00 05/15/25 16:00 Temperature 37.1 C Pulse Rate 96 94 Respiratory Rate 16 Blood Pressure 112/53 L Pulse Oximetry 95 94 Oxygen Delivery BiPAP Oxygen Flow Rate Fraction of Inspired Oxygen 36 05/15/25 18:00 05/15/25 20:00 05/15/25 20:00 Temperature 37.1 C Pulse Rate 95 96 Respiratory Rate 18 Blood Pressure 102/59 L Pulse Oximetry 95 93 Oxygen Delivery BiPAP Oxygen Flow Rate Fraction of Inspired Oxygen 40 05/15/25 20:00 05/15/25 20:03 05/15/25 20:03 Temperature Pulse Rate 96 92 92 Respiratory Rate 22 H 20 Blood Pressure Pulse Oximetry 97 Oxygen Delivery BiPAP Oxygen Flow Rate Fraction of Inspired Oxygen 40 05/15/25 20:17 05/15/25 21:15 05/15/25 22:00 Temperature Pulse Rate 92 93 88 Respiratory Rate 20 Blood Pressure Pulse Oximetry 97 Oxygen Delivery BiPAP Oxygen Flow Rate Fraction of Inspired Oxygen 05/16/25 00:00 05/16/25 00:00 05/16/25 00:00 Temperature 36.9 C Pulse Rate 86 88 Respiratory Rate 16 Blood Pressure 105/55 L Pulse Oximetry 97 96 Oxygen Delivery BiPAP Oxygen Flow Rate Fraction of Inspired Oxygen 40 05/16/25 02:00 05/16/25 02:47 05/16/25 04:00 Temperature 36.7 C Pulse Rate 86 84 88 Respiratory Rate 20 16 Blood Pressure 119/61 Pulse Oximetry 98 Oxygen Delivery Oxygen Flow Rate Fraction of Inspired Oxygen 05/16/25 04:00 05/16/25 04:00 05/16/25 06:00 Temperature Pulse Rate 83 87 Respiratory Rate Blood Pressure Pulse Oximetry 95 Oxygen Delivery BiPAP Oxygen Flow Rate Fraction of Inspired Oxygen 40 05/16/25 07:40 05/16/25 07:52 05/16/25 07:53 Temperature Pulse Rate 88 88 90 Respiratory Rate 20 20 20 Blood Pressure Pulse Oximetry 98 Oxygen Delivery BiPAP Oxygen Flow Rate Fraction of Inspired Oxygen 05/16/25 08:00 05/16/25 08:12 05/16/25 08:27 Temperature 36.7 C Pulse Rate 90 94 Respiratory Rate 22 H Blood Pressure 107/56 L Pulse Oximetry 100 92 Oxygen Delivery Nasal Cannula Oxygen Flow Rate 3 Fraction of Inspired Oxygen Intake/Output Intake/Output: Intake & Output 05/13/25 05/14/25 05/15/25 05/16/25 23:59 23:59 23:59 23:59 Intake Total 1600 840 200 Output Total 300 1250 550 Balance 1300 -410 -350 Meds/Results Medications: Active Medications Generic Name Dose Route Start Last Admin Trade Name Freq PRN Reason Stop Dose Admin Acetaminophen 1,000 mg 05/14/25 23:34 05/14/25 23:56 Acetaminophen 500 Mg Tablet PO 1,000 mg Q6H PRN Administration Mild Pain (1-3) or Fever Albuterol/Ipratropium 3 ml 05/14/25 20:00 05/16/25 07:51 Ipratropium 0.5 Mg/Albuterol Sulfate 2.5 Mg (Base) Ampul.Neb 3 Ml INHALATION 3 ml Q6HRT [facility] Administration Aspirin 81 mg 05/15/25 09:00 05/16/25 08:29 Aspirin 81 Mg Enteric Tablet PO 81 mg DAILY [facility] Administration Atorvastatin Calcium 80 mg 05/15/25 09:00 05/16/25 08:29 Atorvastatin 40 Mg Tablet PO 80 mg DAILY [facility] Administration Bumetanide 2 mg 05/15/25 09:30 05/15/25 17:52 Bumetanide Inj 2.5 Mg/10 Ml Vial IV PUSH 2 mg On Hold: 05/16/25 07:16 BID [facility] Administration Clopidogrel Bisulfate 75 mg 05/15/25 09:00 05/16/25 08:27 Clopidogrel Bisulfate 75 Mg Tablet PO 75 mg QAM [facility] Administration Cyanocobalamin 1,000 mcg 05/15/25 09:00 05/16/25 08:29 Cyanocobalamin 1,000 Mcg Tablet PO 1,000 mcg QAM [facility] Administration Dextrose 12.5 gm 05/14/25 12:48 Dextrose 50% 25 Gm/50 Ml Syringe IV PUSH PRN PRN Hypoglycemia Protocol Diclofenac Sodium 1 applic 05/14/25 21:00 05/15/25 21:15 Diclofenac Sodium 1% 100 Gm Gel (*Bkc) TOPICAL 1 applic QID [facility] Administration Diphenoxylate HCl/Atropine 1 tablet 05/14/25 19:10 Diphenoxylate/Atropine (*Crx) 2.5 Mg Tablet PO QID PRN Diarrhea Enoxaparin Sodium 40 mg 05/14/25 21:00 05/15/25 21:15 Enoxaparin 40 Mg/0.4 Ml Syringe SUB-Q 40 mg Q12HR [facility] Administration Fish Oil 1 gm 05/14/25 21:00 05/16/25 08:27 [place] 3 Polyunsat Fatty Acids 1 Gm Cap PO 1 gm Q12HR [facility] Administration Fluoxetine HCl 20 mg 05/14/25 21:00 05/15/25 21:32 Fluoxetine Hcl 20 Mg Capsule PO Not Given HS [facility] Fluticasone Propionate 1 spray 05/15/25 09:00 05/15/25 17:51 Fluticasone Propionate 0.05% Na Spr 16 Gm Btl (*Bkc) NASAL Not Given BID [facility] Gabapentin 600 mg 05/14/25 21:00 05/16/25 08:27 Gabapentin 300 Mg Capsule PO 600 mg Q12HR [facility] Administration Glucagon 1 mg 05/14/25 12:48 Glucagon For Inj 1 Mg Vial IM PRN PRN Hypoglycemia Protocol Glucose 15 gm 05/14/25 12:48 Glucose Oral Gel 15 Gm Of Glucse In 37.5 Gm Tube PO PRN PRN Hypoglycemia Protocol Cefepime HCl 2 gm/ Sodium 50 mls @ 100 mls/hr 05/14/25 21:00 05/16/25 08:29 Chloride IVPB 100 mls/hr Q12HR [facility] Administration Vancomycin HCl 1,500 mg in 500 mls @ 250 mls/hr 05/15/25 12:00 05/15/25 15:27 Vancomycin 1,500 Mg/Ns 500 Ml IVPB 250 mls/hr Q24H [facility] Administration Dextrose 1,000 mls @ 100 mls/hr 05/14/25 12:48 Dextrose 5% 1,000 Ml IVPB PRN PRN Hypoglycemia Protocol Metronidazole 500 mg in 100 mls @ 100 mls/hr 05/15/25 09:00 05/16/25 08:30 Flagyl 500 Mg/Iso Soln 100 Ml IVPB 100 mls/hr Q6H [facility] Administration Doxycycline Hyclate 100 mg/ 100 mls @ 100 mls/hr 05/15/25 11:00 05/16/25 00:51 Sodium Chloride IVPB Infused Q12H [facility] Infusion Insulin Aspart 4 - 8 units 05/14/25 17:00 05/16/25 08:30 Insulin Aspart (*Bkc) 100 Units/Ml SUB-Q 6 units TIDWM [facility] Administration Protocol Insulin Aspart 10 units 05/15/25 08:00 05/16/25 08:30 Insulin Aspart (*Bkc) 100 Units/Ml 0.05 units/kg (10 units) 10 units SUB-Q Administration TIDWM [facility] Insulin Glargine 60 units 05/14/25 21:00 05/15/25 21:18 Insulin Glargine (*Bkc) 100 Units/Ml SUB-Q 60 units HS [facility] Administration Loratadine 10 mg 05/15/25 09:00 05/16/25 08:29 Loratadine 10 Mg Tablet PO 10 mg DAILY [facility] Administration Metoprolol Tartrate 12.5 mg 05/14/25 21:00 05/16/25 08:27 Metoprolol Tartrate 12.5 Mg Tablet PO 12.5 mg Q12HR [facility] Administration Miscellaneous Information 0 each 05/15/25 00:01 05/16/25 01:05 Dapagliflozin No Sub Generic? Ok To Sub With Jardiance? XX 06/14/25 00:00 Not Given CLARIFY [facility] Non-Formulary Medication 5 mg 05/15/25 09:00 Dapagliflozin Propanediol [Farxiga] PO 06/14/25 08:59 DAILY [facility] Pantoprazole Sodium 40 mg 05/15/25 09:00 05/16/25 08:27 Pantoprazole 40 Mg Tablet PO 40 mg QAM [facility] Administration Perflutren Lipid Microsphere 0 ml 05/15/25 09:32 Perflutren Lipid Microspheres 1.5 Ml Vial Diluted To 10 Ml Total Volume IV PUSH 05/18/25 09:32 ONCE PRN adequate visualization Protocol Pramipexole Dihydrochloride 1 mg 05/14/25 21:00 05/15/25 21:32 Pramipexole 1 Mg Tablet PO Not Given QHS [facility] Quetiapine Fumarate 50 mg 05/14/25 21:00 05/15/25 21:15 Quetiapine Fumarate 25 Mg Tablet PO 50 mg HS [facility] Administration Tizanidine HCl 4 mg 05/14/25 19:10 Tizanidine Hcl 4 Mg Tablet PO QHS PRN Muscle Spasticity Trazodone HCl 50 mg 05/14/25 21:00 05/15/25 21:32 Trazodone Hcl 50 Mg Tablet PO Not Given HS [facility] Radiology Results: ITS Impressions Abdomen/Pelvis CT 05/14/25 11:30 IMPRESSION: 1. No acute findings. Labs Labs: Laboratory Results - last 24 hr 05/15/25 05/15/25 05/15/25 04:18 09:09 11:26 WBC RBC Hgb Hct MCV MCH MCHC RDW Plt Count MPV Immature Gran % (Auto) Neut % (Auto) Lymph % (Auto) [place] % (Auto) Eos % (Auto) Baso % (Auto) Lymph # (Auto) [place] # (Auto) Eos # (Auto) Baso # (Auto) Abs Immat Gran (auto) Absolute Neuts (auto) Absolute Nucleated RBC Nucleated RBC % Puncture Site Left radial ABG pH 7.196 L* ABG pCO2 70.2 H* ABG pO2 83.6 ABG PO2/FiO2 Ratio 2.32 ABG HCO3 26.6 H ABG O2 Saturation 93.4 L ABG O2 Content 17.4 ABG Base Excess -3.0 A-a Gradient 91.7 Oxyhemoglobin 92.7 Carboxyhemoglobin Methemoglobin Reduced Hemoglobin Total Hemoglobin 13.3 O2 Delivery Device Bipap O2 Liters/Min Not Reportable FiO2 36 Expiratory Pressure 16 Inspiratory Pressure 22 Sodium 135 L Potassium 4.0 Chloride 102 Carbon Dioxide 28 Anion Gap 5 BUN 46 H Creatinine 2.52 H Estim Creat Clear Calc 41 Estimated GFR 25 L Glucose 238 H POC Capillary Glucose 291 H Calcium 8.3 L Phosphorus 4.1 Magnesium 1.8 Total Bilirubin 0.9 AST 42 ALT 18 Alkaline Phosphatase 68 C-Reactive Protein 29.5 H NT-Pro-B Natriuret Pep 4930 H Total Protein 5.8 L Albumin 2.9 L Procalcitonin 4.3 TSH 2.160 Free T4 0.97 05/15/25 05/15/25 05/15/25 11:35 15:26 19:53 WBC RBC Hgb Hct MCV MCH MCHC RDW Plt Count MPV Immature Gran % (Auto) Neut % (Auto) Lymph % (Auto) [place] % (Auto) Eos % (Auto) Baso % (Auto) Lymph # (Auto) [place] # (Auto) Eos # (Auto) Baso # (Auto) Abs Immat Gran (auto) Absolute Neuts (auto) Absolute Nucleated RBC Nucleated RBC % Puncture Site Right radial ABG pH 7.224 L* ABG pCO2 62.8 H* ABG pO2 83.2 ABG PO2/FiO2 Ratio 2.08 ABG HCO3 25.4 ABG O2 Saturation 93.9 L ABG O2 Content 16.6 ABG Base Excess -3.3 A-a Gradient 129.8 Oxyhemoglobin 93.1 Carboxyhemoglobin 1.6 Methemoglobin 0.3 Reduced Hemoglobin 5.0 Total Hemoglobin 12.6 O2 Delivery Device Bipap O2 Liters/Min Not Reportable FiO2 40 Expiratory Pressure 10 Inspiratory Pressure Not Reportable Sodium Potassium Chloride Carbon Dioxide Anion Gap BUN Creatinine Estim Creat Clear Calc Estimated GFR Glucose POC Capillary Glucose 315 H 287 H Calcium Phosphorus Magnesium Total Bilirubin AST ALT Alkaline Phosphatase C-Reactive Protein NT-Pro-B Natriuret Pep Total Protein Albumin Procalcitonin TSH Free T4 05/16/25 05/16/25 05/16/25 04:29 05:23 07:45 WBC 21.0 H RBC 4.07 L Hgb 11.4 L Hct 38.3 L MCV 94.1 MCH 28.0 MCHC 29.8 L RDW 17.7 H Plt Count 135 L MPV 10.6 H Immature Gran % (Auto) 1.7 H Neut % (Auto) 91.3 H Lymph % (Auto) 3.5 L [place] % (Auto) 3.4 Eos % (Auto) 0.0 Baso % (Auto) 0.1 L Lymph # (Auto) 0.74 L [place] # (Auto) 0.7 H Eos # (Auto) 0.0 Baso # (Auto) 0.0 Abs Immat Gran (auto) 0.36 H Absolute Neuts (auto) 19.1 H Absolute Nucleated RBC 0.000 Nucleated RBC % 0.0 Puncture Site Right radial ABG pH 7.260 L* ABG pCO2 56.7 H ABG pO2 95.0 ABG PO2/FiO2 Ratio 2.38 ABG HCO3 24.9 ABG O2 Saturation 96.1 ABG O2 Content 16.6 ABG Base Excess -2.9 A-a Gradient 125.0 Oxyhemoglobin 95.5 Carboxyhemoglobin Methemoglobin Reduced Hemoglobin Total Hemoglobin 12.3 O2 Delivery Device Bipap O2 Liters/Min Not Reportable FiO2 40 Expiratory Pressure 10 Inspiratory Pressure Not Reportable Sodium 139 Potassium 5.0 Chloride 103 Carbon Dioxide 28 Anion Gap 8 BUN 67 H D Creatinine 3.18 H Estim Creat Clear Calc 32 Estimated GFR 19 L Glucose 369 H POC Capillary Glucose 338 H Calcium 8.5 Phosphorus 5.3 H Magnesium 1.9 Total Bilirubin 0.4 AST 34 ALT 22 Alkaline Phosphatase 81 C-Reactive Protein NT-Pro-B Natriuret Pep Total Protein 6.0 L Albumin 3.0 L Procalcitonin TSH Free T4
--- NOTE | 2025-05-16 10:04 | PM.IMPN ---
Progress Note: A&P Assessment and Plan (1) Sepsis: Code(s): A41.9 - Sepsis, unspecified organism Status: Acute Assessment and Plan: -UTI with tachycardia, tachypnea, increased oxygen demand, altered mental status and fever -Cefepime and vancomycin started in ER and will be continued -No prior urine culture available but prior buttock wound culture with ESBL Klebsiella and MRSA UTI and pneumonia Follow urine culture Pneumonia suspected aspiration (2) Elevated troponin: Code(s): R79.89 - Other specified abnormal findings of blood chemistry Status: Acute Assessment and Plan: -Mildly elevated troponin without chest pain with flat trend -Prior cardiac history significant -Cardiology consulted by ER, states that troponin elevation likely due to sepsis and not LA -Continue aspirin and clopidogrel (3) Acute and chronic respiratory failure ([id number]): Code(s): J96.20 - Acute and chronic respiratory failure, unspecified whether with hypoxia or hypercapnia Status: Acute Assessment and Plan: -Patient uses oxygen with BiPAP at night but not during the day -Noted to require oxygen for adequate saturations in ER and up to 6 LPM required after admission -CXR indicative of pulmonary edema or pneumonites with left basilar atelectasis or airspace disease -BiPAP with 4 LPM use at home per prior Pulmonology notes -ABG with hypercapnia BiPAP 22/16 with non improvement. Switched to AVAPS mode with subsequent improvement will continue continues AVAPS today and tonight. -Pulmonology consulted and discussed with him likely related to CHF exacerbation. And/or component of aspiration pneumonia AVAPS mode at night continue. ABG improved some today (4) Altered mental status: Code(s): R41.82 - Altered mental status, unspecified Status: Acute Assessment and Plan: -altered mental status likely due to hypercapnia -Likely metabolic encephalopathy from UTI though hypercapnea or hypoxia as cause is possible as well (5) Acute UTI: Code(s): N39.0 - Urinary tract infection, site not specified Status: Acute Assessment and Plan: -UA with >100 WBC with WBC clumps, 1+ bacteria, 2+ leukocyte esterase -Cefepime and vancomycin started in ER, will continue -No prior urine culture present -Patient had fever and elevated WBC 18.4 on admit (6) Hypomagnesemia: Code(s): E83.42 - Hypomagnesemia Status: Acute Assessment and Plan: -Magnesium 1.2 on admission, prior history of low magnesium -3 grams repleted over 3 hours Continue to monitor (7) Congestive heart failure: Qualifiers: Heart failure chronicity: unspecified Heart failure type: unspecified Qualified Code(s): I50.9 - Heart failure, unspecified Code(s): I50.9 - Heart failure, unspecified Status: Acute Assessment and Plan: -Hypoxia with new oxygen demand and CXR findings of interstitial pulmonary edema -Dose of Bumex 2 mg ordered and will plan to continue this daily medication -Monitor renal function -Echo ordered, recent Cardiology note scanned into the record from [facility] -Cardiology consulted by ER due to elevated troponin Continue diuresis with 2 mg Bumex IV b.i.d. which will be held today due to a bump in creatinine (8) CKD (chronic kidney disease): Code(s): N18.9 - Chronic kidney disease, unspecified Status: Chronic Assessment and Plan: -Stable/chronic renal function noted on admit -One liter IV fluids given in ER, no further since pulmonary edema also noted Hold further IV hydration Diuresis ordered however now with DAWNA Will hold diuresis for today Check renal ultrasound Pal[place] in place Will restart diuresis when renal function stabilizes (9) Type 2 diabetes mellitus with hyperglycemia: Qualifiers: Diabetes mellitus senior care insulin use: with senior care use Qualified Code(s): E11.65 - Type 2 diabetes mellitus with hyperglycemia; Z79.4 - [facility] (current) use of insulin Code(s): E11.65 - Type 2 diabetes mellitus with hyperglycemia Status: Chronic Assessment and Plan: -HGB A1c 8.9 on admit -Hold Farxiga since it is non-formulary and states no substitutions on RX unless family can bring in -Diabetic diet ordered -ACHS finger stick blood glucose with high dose SSI -Reduce home insulin dosing but prepare to titrate dosing based on fingerstick results (10) Sleep apnea: Code(s): G47.30 - Sleep apnea, unspecified Status: Chronic Assessment and Plan: -BiPAP settings with 4 LPM bleed in per Pulmonology notes in 2021 -pulmonary on board Changed to AVAPS setting at night Plan Pneumonia: On vancomycin and cefepime. Will add doxycycline and Flagyl to cover aspiration as well. WBC count worsened however now stable. MRSA swab. If negative DC vancomycin DVT prophylaxis Lovenox. Will switch to heparin Subjective Date/time seen: 05/16/25 10:04 Interval history: No overnight events. Use BiPAP overnight. Feels better. Leg swelling has improved. Complains of penile pain due to Palma catheter. Discussed with Cardiology and Pulmonary Review of Systems Review of Systems: All systems reviewed & are unremarkable except as noted in HPI and below Exam Narrative: GENERAL: Morbidly obese elderly male on BiPAP not in acute distress alert and oriented x3 HEAD: Normocephalic, atraumatic. ENT:? Mucous membranes moist. CHEST: Diminished breath sounds bilaterally not in respiratory distress HEART: Mildly tachycardic rate with regular rhythm. ? Normal peripheral pulses. ABDOMEN: Soft, obese, mild generalized tenderness without rebound or guarding, normal bowel sounds noted. EXTREMITIES: Normal range of motion. Bilateral lower extremity edema with erythema due to PVD and some small fluid filled blisters on left anterior lower leg. SKIN: Warm dry normal color NEURO: Alert and oriented x3 moving all extremities Objective Data Vital Signs Vital Signs: Vital Signs - 24 hr 05/15/25 10:15 05/15/25 12:00 05/15/25 12:00 Temperature 99.1 F Pulse Rate 108 H 91 Respiratory Rate 20 24 H Blood Pressure 116/55 L Pulse Oximetry 92 91 91 Oxygen Delivery BiPAP BiPAP Oxygen Flow Rate Fraction of Inspired Oxygen 36 05/15/25 12:00 05/15/25 14:00 05/15/25 14:46 Temperature Pulse Rate 104 H 97 96 Respiratory Rate 19 Blood Pressure Pulse Oximetry Oxygen Delivery Oxygen Flow Rate Fraction of Inspired Oxygen 05/15/25 14:48 05/15/25 15:00 05/15/25 15:35 Temperature 98.8 F Pulse Rate 96 102 H 96 Respiratory Rate 21 H 21 H 16 Blood Pressure 112/53 L Pulse Oximetry 93 95 Oxygen Delivery BiPAP Oxygen Flow Rate Fraction of Inspired Oxygen 05/15/25 16:00 05/15/25 16:00 05/15/25 18:00 Temperature Pulse Rate 94 95 Respiratory Rate Blood Pressure Pulse Oximetry 94 Oxygen Delivery BiPAP Oxygen Flow Rate Fraction of Inspired Oxygen 36 05/15/25 20:00 05/15/25 20:00 05/15/25 20:00 Temperature 98.8 F Pulse Rate 96 96 Respiratory Rate 18 Blood Pressure 102/59 L Pulse Oximetry 95 93 Oxygen Delivery BiPAP Oxygen Flow Rate Fraction of Inspired Oxygen 40 05/15/25 20:03 05/15/25 20:03 05/15/25 20:17 Temperature Pulse Rate 92 92 92 Respiratory Rate 22 H 20 20 Blood Pressure Pulse Oximetry 97 97 Oxygen Delivery BiPAP BiPAP Oxygen Flow Rate Fraction of Inspired Oxygen 40 05/15/25 21:15 05/15/25 22:00 05/16/25 00:00 Temperature 98.5 F Pulse Rate 93 88 86 Respiratory Rate 16 Blood Pressure 105/55 L Pulse Oximetry 97 Oxygen Delivery Oxygen Flow Rate Fraction of Inspired Oxygen 05/16/25 00:00 05/16/25 00:00 05/16/25 02:00 Temperature Pulse Rate 88 86 Respiratory Rate Blood Pressure Pulse Oximetry 96 Oxygen Delivery BiPAP Oxygen Flow Rate Fraction of Inspired Oxygen 40 05/16/25 02:47 05/16/25 04:00 05/16/25 04:00 Temperature 98.0 F Pulse Rate 84 88 Respiratory Rate 20 16 Blood Pressure 119/61 Pulse Oximetry 98 95 Oxygen Delivery BiPAP Oxygen Flow Rate Fraction of Inspired Oxygen 40 05/16/25 04:00 05/16/25 06:00 05/16/25 07:40 Temperature Pulse Rate 83 87 88 Respiratory Rate 20 Blood Pressure Pulse Oximetry Oxygen Delivery Oxygen Flow Rate Fraction of Inspired Oxygen 05/16/25 07:52 05/16/25 07:53 05/16/25 08:00 Temperature 98.0 F Pulse Rate 88 90 90 Respiratory Rate 20 20 22 H Blood Pressure 107/56 L Pulse Oximetry 98 100 Oxygen Delivery BiPAP Oxygen Flow Rate Fraction of Inspired Oxygen 05/16/25 08:12 05/16/25 08:27 Temperature Pulse Rate 94 Respiratory Rate Blood Pressure Pulse Oximetry 92 Oxygen Delivery Nasal Cannula Oxygen Flow Rate 3 Fraction of Inspired Oxygen Intake/Output Intake/Output: Intake & Output 05/13/25 05/14/25 05/15/25 05/16/25 23:59 23:59 23:59 23:59 Intake Total 1600 840 440 Output Total 300 1250 550 Balance 6441 -029 -110 Meds/Results Medications: Active Medications Generic Name Dose Route Start Last Admin Trade Name Freq PRN Reason Stop Dose Admin Acetaminophen 1,000 mg 05/14/25 23:34 05/14/25 23:56 Acetaminophen 500 Mg Tablet PO 1,000 mg Q6H PRN Administration Mild Pain (1-3) or Fever Albuterol/Ipratropium 3 ml 05/14/25 20:00 05/16/25 07:51 Ipratropium 0.5 Mg/Albuterol Sulfate 2.5 Mg (Base) Ampul.Neb 3 Ml INHALATION 3 ml Q6HRT SCHUYLER Administration Aspirin 81 mg 05/15/25 09:00 05/16/25 08:29 Aspirin 81 Mg Enteric Tablet PO 81 mg DAILY SCHUYLER Administration Atorvastatin Calcium 80 mg 05/15/25 09:00 05/16/25 08:29 Atorvastatin 40 Mg Tablet PO 80 mg DAILY SCHUYLER Administration Bumetanide 2 mg 05/15/25 09:30 05/15/25 17:52 Bumetanide Inj 2.5 Mg/10 Ml Vial IV PUSH 2 mg On Hold: 05/16/25 07:16 BID SCHUYLER Administration Clopidogrel Bisulfate 75 mg 05/15/25 09:00 05/16/25 08:27 Clopidogrel Bisulfate 75 Mg Tablet PO 75 mg QAM SCHUYLER Administration Cyanocobalamin 1,000 mcg 05/15/25 09:00 05/16/25 08:29 Cyanocobalamin 1,000 Mcg Tablet PO 1,000 mcg QAM SCHUYLER Administration Dextrose 12.5 gm 05/14/25 12:48 Dextrose 50% 25 Gm/50 Ml Syringe IV PUSH PRN PRN Hypoglycemia Protocol Diclofenac Sodium 1 applic 05/14/25 21:00 05/15/25 21:15 Diclofenac Sodium 1% 100 Gm Gel (*Bkc) TOPICAL 1 applic QID SCHUYLER Administration Diphenoxylate HCl/Atropine 1 tablet 05/14/25 19:10 Diphenoxylate/Atropine (*Crx) 2.5 Mg Tablet PO QID PRN Diarrhea Enoxaparin Sodium 40 mg 05/14/25 21:00 05/15/25 21:15 Enoxaparin 40 Mg/0.4 Ml Syringe SUB-Q 40 mg Q12HR SCHUYLER Administration Fish Oil 1 gm 05/14/25 21:00 05/16/25 08:27 Spencer 3 Polyunsat Fatty Acids 1 Gm Cap PO 1 gm Q12HR SCHUYLER Administration Fluoxetine HCl 20 mg 05/14/25 21:00 05/15/25 21:32 Fluoxetine Hcl 20 Mg Capsule PO Not Given HS [facility] Fluticasone Propionate 1 spray 05/15/25 09:00 05/15/25 17:51 Fluticasone Propionate 0.05% Na Spr 16 Gm Btl (*Bkc) NASAL Not Given BID SCHUYLER Gabapentin 600 mg 05/14/25 21:00 05/16/25 08:27 Gabapentin 300 Mg Capsule PO 600 mg Q12HR SCHUYLER Administration Glucagon 1 mg 05/14/25 12:48 Glucagon For Inj 1 Mg Vial IM PRN PRN Hypoglycemia Protocol Glucose 15 gm 05/14/25 12:48 Glucose Oral Gel 15 Gm Of Glucse In 37.5 Gm Tube PO PRN PRN Hypoglycemia Protocol Cefepime HCl 2 gm/ Sodium 50 mls @ 100 mls/hr 05/14/25 21:00 05/16/25 08:29 Chloride IVPB 100 mls/hr Q12HR SCHUYLER Administration Vancomycin HCl 1,500 mg in 500 mls @ 250 mls/hr 05/15/25 12:00 05/15/25 15:27 Vancomycin 1,500 Mg/Ns 500 Ml IVPB 250 mls/hr Q24H SCHUYLER Administration Dextrose 1,000 mls @ 100 mls/hr 05/14/25 12:48 Dextrose 5% 1,000 Ml IVPB PRN PRN Hypoglycemia Protocol Metronidazole 500 mg in 100 mls @ 100 mls/hr 05/15/25 09:00 05/16/25 08:30 Flagyl 500 Mg/Iso Soln 100 Ml IVPB 100 mls/hr Q6H SCHUYLER Administration Doxycycline Hyclate 100 mg/ 100 mls @ 100 mls/hr 05/15/25 11:00 05/16/25 00:51 Sodium Chloride IVPB Infused Q12H SCHUYLER Infusion Insulin Aspart 4 - 8 units 05/14/25 17:00 05/16/25 08:30 Insulin Aspart (*Bkc) 100 Units/Ml SUB-Q 6 units TIDWM SCHUYLER Administration Protocol Insulin Aspart 10 units 05/15/25 08:00 05/16/25 08:30 Insulin Aspart (*Bkc) 100 Units/Ml 0.05 units/kg (10 units) 10 units SUB-Q Administration TIDWM SCHUYLER Insulin Glargine 60 units 05/14/25 21:00 05/15/25 21:18 Insulin Glargine (*Bkc) 100 Units/Ml SUB-Q 60 units HS SCHUYLER Administration Loratadine 10 mg 05/15/25 09:00 05/16/25 08:29 Loratadine 10 Mg Tablet PO 10 mg DAILY CSHUYLER Administration Metoprolol Tartrate 12.5 mg 05/14/25 21:00 05/16/25 08:27 Metoprolol Tartrate 12.5 Mg Tablet PO 12.5 mg Q12HR SCHUYLER Administration Miscellaneous Information 0 each 05/15/25 00:01 05/16/25 01:05 Dapagliflozin No Sub Generic? Ok To Sub With Jardiance? XX 06/14/25 00:00 Not Given CLARIFY SCHUYLER Non-Formulary Medication 5 mg 05/15/25 09:00 Dapagliflozin Propanediol [Farxiga] PO 06/14/25 08:59 DAILY SCHUYLER Pantoprazole Sodium 40 mg 05/15/25 09:00 05/16/25 08:27 Pantoprazole 40 Mg Tablet PO 40 mg QAM SCHUYLER Administration Perflutren Lipid Microsphere 0 ml 05/15/25 09:32 Perflutren Lipid Microspheres 1.5 Ml Vial Diluted To 10 Ml Total Volume IV PUSH 05/18/25 09:32 ONCE PRN adequate visualization Protocol Pramipexole Dihydrochloride 1 mg 05/14/25 21:00 05/15/25 21:32 Pramipexole 1 Mg Tablet PO Not Given QHS SCHUYLER Quetiapine Fumarate 50 mg 05/14/25 21:00 05/15/25 21:15 Quetiapine Fumarate 25 Mg Tablet PO 50 mg HS SCHUYLER Administration Tizanidine HCl 4 mg 05/14/25 19:10 Tizanidine Hcl 4 Mg Tablet PO QHS PRN Muscle Spasticity Trazodone HCl 50 mg 05/14/25 21:00 05/15/25 21:32 Trazodone Hcl 50 Mg Tablet PO Not Given HS [facility] Radiology Results: ITS Impressions Abdomen/Pelvis CT 05/14/25 11:30 IMPRESSION: 1. No acute findings. Chest X-Ray 05/16/25 09:25 IMPRESSION: 1. Persistent bibasilar atelectasis and/or airspace disease. Labs Labs: Laboratory Results - last 24 hr 05/15/25 05/15/25 05/15/25 04:18 11:26 11:35 WBC RBC Hgb Hct MCV MCH MCHC RDW Plt Count MPV Immature Gran % (Auto) Neut % (Auto) Lymph % (Auto) Harrison % (Auto) Eos % (Auto) Baso % (Auto) Lymph # (Auto) Harrison # (Auto) Eos # (Auto) Baso # (Auto) Abs Immat Gran (auto) Absolute Neuts (auto) Absolute Nucleated RBC Nucleated RBC % Puncture Site Right radial ABG pH 7.224 L* ABG pCO2 62.8 H* ABG pO2 83.2 ABG PO2/FiO2 Ratio 2.08 ABG HCO3 25.4 ABG O2 Saturation 93.9 L ABG O2 Content 16.6 ABG Base Excess -3.3 A-a Gradient 129.8 Oxyhemoglobin 93.1 Carboxyhemoglobin 1.6 Methemoglobin 0.3 Reduced Hemoglobin 5.0 Total Hemoglobin 12.6 O2 Delivery Device Bipap O2 Liters/Min Not Reportable FiO2 40 Expiratory Pressure 10 Inspiratory Pressure Not Reportable Sodium Potassium Chloride Carbon Dioxide Anion Gap BUN Creatinine Estim Creat Clear Calc Estimated GFR Glucose POC Capillary Glucose 291 H Calcium Phosphorus Magnesium Total Bilirubin AST ALT Alkaline Phosphatase C-Reactive Protein 29.5 H NT-Pro-B Natriuret Pep 4930 H Total Protein Albumin Procalcitonin 4.3 TSH 2.160 Free T4 0.97 05/15/25 05/15/25 05/16/25 15:26 19:53 04:29 WBC 21.0 H RBC 4.07 L Hgb 11.4 L Hct 38.3 L MCV 94.1 MCH 28.0 MCHC 29.8 L RDW 17.7 H Plt Count 135 L MPV 10.6 H Immature Gran % (Auto) 1.7 H Neut % (Auto) 91.3 H Lymph % (Auto) 3.5 L Harrison % (Auto) 3.4 Eos % (Auto) 0.0 Baso % (Auto) 0.1 L Lymph # (Auto) 0.74 L Harrison # (Auto) 0.7 H Eos # (Auto) 0.0 Baso # (Auto) 0.0 Abs Immat Gran (auto) 0.36 H Absolute Neuts (auto) 19.1 H Absolute Nucleated RBC 0.000 Nucleated RBC % 0.0 Puncture Site ABG pH ABG pCO2 ABG pO2 ABG PO2/FiO2 Ratio ABG HCO3 ABG O2 Saturation ABG O2 Content ABG Base Excess A-a Gradient Oxyhemoglobin Carboxyhemoglobin Methemoglobin Reduced Hemoglobin Total Hemoglobin O2 Delivery Device O2 Liters/Min FiO2 Expiratory Pressure Inspiratory Pressure Sodium 139 Potassium 5.0 Chloride 103 Carbon Dioxide 28 Anion Gap 8 BUN 67 H D Creatinine 3.18 H Estim Creat Clear Calc 32 Estimated GFR 19 L Glucose 369 H POC Capillary Glucose 315 H 287 H Calcium 8.5 Phosphorus 5.3 H Magnesium 1.9 Total Bilirubin 0.4 AST 34 ALT 22 Alkaline Phosphatase 81 C-Reactive Protein NT-Pro-B Natriuret Pep Total Protein 6.0 L Albumin 3.0 L Procalcitonin TSH Free T4 05/16/25 05/16/25 05:23 07:45 WBC RBC Hgb Hct MCV MCH MCHC RDW Plt Count MPV Immature Gran % (Auto) Neut % (Auto) Lymph % (Auto) Harrison % (Auto) Eos % (Auto) Baso % (Auto) Lymph # (Auto) Harrison # (Auto) Eos # (Auto) Baso # (Auto) Abs Immat Gran (auto) Absolute Neuts (auto) Absolute Nucleated RBC Nucleated RBC % Puncture Site Right radial ABG pH 7.260 L* ABG pCO2 56.7 H ABG pO2 95.0 ABG PO2/FiO2 Ratio 2.38 ABG HCO3 24.9 ABG O2 Saturation 96.1 ABG O2 Content 16.6 ABG Base Excess -2.9 A-a Gradient 125.0 Oxyhemoglobin 95.5 Carboxyhemoglobin Methemoglobin Reduced Hemoglobin Total Hemoglobin 12.3 O2 Delivery Device Bipap O2 Liters/Min Not Reportable FiO2 40 Expiratory Pressure 10 Inspiratory Pressure Not Reportable Sodium Potassium Chloride Carbon Dioxide Anion Gap BUN Creatinine Estim Creat Clear Calc Estimated GFR Glucose POC Capillary Glucose 338 H Calcium Phosphorus Magnesium Total Bilirubin AST ALT Alkaline Phosphatase C-Reactive Protein NT-Pro-B Natriuret Pep Total Protein Albumin Procalcitonin TSH Free T4
[2025-05-16 11:15] LABS: Creatine Kinase 111 U/L (55-170)
[2025-05-16 11:15] LABS: MRSA (PCR) NOT DETECTED (NOT DETECTE)
[2025-05-16 11:23] LABS: NT Pro B Type Natriuretic Pept 3140 pg/mL (19.9-100)
[2025-05-16] MEDS: FLUTICASONE PROPIONATE 0.05% NA SPR 16 GM BTL (*BKC) 1 SPRAY NASAL ×2 (12:27→16:47)
[2025-05-16] MEDS: DICLOFENAC SODIUM 1% 100 GM GEL (*BKC) 1 APPLIC TOPICAL ×4 (12:28→20:57)
[2025-05-16] MEDS: DOXYCYCLINE IV 100 MG in SODIUM CHLORIDE 0.9% IV 100 ML 200 ML IVPB (12:34)
[2025-05-16 20:28] LABS: Toxigenic C. Diff NEGATIVE (NEGATIVE)
[2025-05-16] MEDS: PRAMIPEXOLE 1 MG TABLET PO (20:57)
[2025-05-16] MEDS: INSULIN GLARGINE (*BKC) 100 UNITS/ML 60 UNITS SUB-Q (21:28)
[2025-05-16] MEDS: DOXYCYCLINE IV 100 MG in SODIUM CHLORIDE 0.9% IV 100 ML IVPB (22:41)
[2025-05-17] VITALS (23 sets, daily range): BP systolic 119–131; BP diastolic 53–81; PULSE 77–102; RESP 20–25; TEMP 36.5–36.8; O2SAT 88–97
[2025-05-17] MEDS: metroNIDAZOLE 500 MG/ISO 100ML 500 MG/100 ML BAG 100 MG IVPB ×4 (03:12→21:24)
[2025-05-17 04:44] LABS: Alveolar/Arterial O2 Gradient 105.4 mmHg; Fractional Inspired Oxygen 36 %; HCO3 ABG 24.2 mEq/l (22.0-26.0); Oxygen Content ABG 18.3 %vol (16.0-22.0); Oxygen Saturation ABG 96.4 % (95.0-100.0); PCO2 ABG 49.9 mmHg (35.0-45.0); PO2 ABG 93.4 mmHg (80.0-100.0); PO2 FiO2 Ratio Arterial Blood 2.59 %
[2025-05-17 04:48] LABS: Modified Allen's Test Pass; Site Drawn RIGHT RADIAL
[2025-05-17 06:22] LABS: Hematocrit 38.4 % (42.0-52.0); Hemoglobin 11.6 g/dL (14.0-18.0); Immature Granulocyte Percent A 1.0 % (0-0.5); Lymphocytes Absolute Auto 0.69 K/mm3 (0.9-3.2); Mean Corpuscular HGB Conc 30.2 g/dl (32-36); Mean Corpuscular Hemoglobin 27.7 pg (26-34); Mean Corpuscular Volume 91.6 fl (80-100); Nucleated Red Blood Cells Absolute Auto 0.000 K/mm3 (0.0-0.012); Nucleated Red Blood Cells Perc 0.0 % (0.0-0.2); Platelet Count Result 159 k/mm3 (150-375); Red Blood Count 4.19 M/mm3 (4.6-6.20); White Blood Count 17.9 K/mm3 (4.5-10.0)
[2025-05-17 06:45] LABS: Alanine Aminotransferase 22 U/L (6-50); Albumin Level 3.1 g/dL (3.5-5.1); Alkaline Phosphatase 96 U/L (38-126); Anion Gap 5 mmol/L (4-12); Aspartate Amino Transferase 30 U/L (17-59); Bilirubin,Total 0.4 mg/dL (0.2-1.3); Blood Urea Nitrogen 76 mg/dL (9-20); Calcium 8.6 mg/dL (8.4-10.2); Carbon Dioxide 26 mmol/L (22-30); Chloride 101 mmol/L (98-107); Estimated CRCL calculation 34 ml/min; Estimated Glomerular Filt Rate 21; Glucose 328 mg/dL (65-110); Magnesium 2.1 mg/dL (1.6-2.3); Potassium 4.0 mmol/L (3.4-5.0); Sodium 132 mmol/L (137-145); Total Protein 6.2 g/dL (6.3-8.2)
--- NOTE | 2025-05-17 08:26 | P.PNIM_ITS ---
Progress Note: A&P Assessment and Plan (1) Sepsis: Code(s): A41.9 - Sepsis, unspecified organism Status: Acute Assessment and Plan: -UTI with tachycardia, tachypnea, increased oxygen demand, altered mental status and fever -Cefepime and vancomycin started in ER and will be continued -No prior urine culture available but prior buttock wound culture with ESBL Klebsiella and MRSA UTI and pneumonia Follow urine culture Pneumonia suspected aspiration MRSA swab negative vancomycin discontinued (2) Elevated troponin: Code(s): R79.89 - Other specified abnormal findings of blood chemistry Status: Acute Assessment and Plan: -Mildly elevated troponin without chest pain with flat trend -Prior cardiac history significant -Cardiology consulted by ER, states that troponin elevation likely due to sepsis and not DC -Continue aspirin and clopidogrel (3) Acute and chronic respiratory failure ([id number]): Code(s): J96.20 - Acute and chronic respiratory failure, unspecified whether with hypoxia or hypercapnia Status: Acute Assessment and Plan: -Patient uses oxygen with BiPAP at night but not during the day -Noted to require oxygen for adequate saturations in ER and up to 6 LPM required after admission -CXR indicative of pulmonary edema or pneumonites with left basilar atelectasis or airspace disease -BiPAP with 4 LPM use at home per prior Pulmonology notes -ABG with hypercapnia BiPAP /16 with non improvement. Switched to AVAPS mode with subsequent improvement will continue continues AVAPS today and tonight. -Pulmonology consulted and discussed with him likely related to CHF exacerbation. And/or component of aspiration pneumonia AVAPS mode at night continue. ABG continues to improve (4) Altered mental status: Code(s): R41.82 - Altered mental status, unspecified Status: Acute Assessment and Plan: -altered mental status likely due to hypercapnia -Likely metabolic encephalopathy from UTI though hypercapnea or hypoxia as cause is possible as well (5) Acute UTI: Code(s): N39.0 - Urinary tract infection, site not specified Status: Acute Assessment and Plan: -UA with >100 WBC with WBC clumps, 1+ bacteria, 2+ leukocyte esterase -Cefepime and vancomycin started in ER, will continue -No prior urine culture present -Patient had fever and elevated WBC 18.4 on admit WBC count continues to improve slowly (6) Hypomagnesemia: Code(s): E83.42 - Hypomagnesemia Status: Acute Assessment and Plan: -Magnesium 1.2 on admission, prior history of low magnesium -3 grams repleted over 3 hours Continue to monitor (7) Congestive heart failure: Qualifiers: Heart failure type: unspecified Heart failure chronicity: unspecified Qualified Code(s): I50.9 - Heart failure, unspecified Code(s): I50.9 - Heart failure, unspecified Status: Acute Assessment and Plan: -Hypoxia with new oxygen demand and CXR findings of interstitial pulmonary edema -Dose of Bumex 2 mg ordered and will plan to continue this daily medication -Monitor renal function -Echo ordered, recent Cardiology note scanned into the record from [facility] -Cardiology consulted by ER due to elevated troponin Continue diuresis with 2 mg Bumex IV b.i.d. which will be held today due to a bump in creatinine Creatinine lowered down today. Will continue to hold Bumex today. If continues to improve will resume smaller dose of Bumex (8) CKD (chronic kidney disease): Code(s): N18.9 - Chronic kidney disease, unspecified Status: Chronic Assessment and Plan: -Stable/chronic renal function noted on admit -One liter IV fluids given in ER, no further since pulmonary edema also noted Hold further IV hydration Diuresis ordered however now with DAWNA Will hold diuresis for today Check renal ultrasound [place] in place Will restart diuresis when renal function stabilizes (9) Type 2 diabetes mellitus with hyperglycemia: Qualifiers: Diabetes mellitus shelter insulin use: with shelter use Qualified Code(s): E11.65 - Type 2 diabetes mellitus with hyperglycemia; Z79.4 - FDC (current) use of insulin Code(s): E11.65 - Type 2 diabetes mellitus with hyperglycemia Status: Chronic Assessment and Plan: -HGB A1c 8.9 on admit -Hold Farxiga since it is non-formulary and states no substitutions on RX unless family can bring in -Diabetic diet ordered -ACHS finger stick blood glucose with high dose SSI -Reduce home insulin dosing but prepare to titrate dosing based on fingerstick results (10) Sleep apnea: Code(s): G47.30 - Sleep apnea, unspecified Status: Chronic Assessment and Plan: -BiPAP settings with 4 LPM bleed in per Pulmonology notes in 2021 -pulmonary on board Changed to AVAPS setting at night Plan Pneumonia: On vancomycin and cefepime. Will add doxycycline and Flagyl to cover aspiration as well. WBC count worsened however now stable. MRSA swab negative DC vancomycin DVT prophylaxis heparin subQ Disposition: PT OT to see Subjective Date/time seen: 05/17/25 08:26 Interval history: No overnight events. Use BiPAP overnightAnd tolerating well. Feels better. ABG reviewed. Leg swelling has improved. Discussed with Pulmonary Review of Systems Review of Systems: All systems reviewed & are unremarkable except as noted in HPI and below Exam Narrative: GENERAL: Morbidly obese elderly male on BiPAP not in acute distress alert and oriented x3 HEAD: Normocephalic, atraumatic. ENT:? Mucous membranes moist. CHEST: Diminished breath sounds bilaterally not in respiratory distress HEART: Mildly tachycardic rate with regular rhythm. ? Normal peripheral pulses. ABDOMEN: Soft, obese, mild generalized tenderness without rebound or guarding, normal bowel sounds noted. EXTREMITIES: Normal range of motion. Bilateral lower extremity edema with erythema due to PVD and some small fluid filled blisters on left anterior lower leg. much improved SKIN: Warm dry normal color NEURO: Alert and oriented x3 moving all extremities Objective Data Vital Signs Vital Signs: Vital Signs - 24 hr 05/16/25 08:27 05/16/25 10:00 05/16/25 12:00 Temperature 99.0 F Pulse Rate 94 100 102 H Respiratory Rate 20 Blood Pressure 104/50 L Pulse Oximetry 95 Oxygen Delivery Oxygen Flow Rate Fraction of Inspired Oxygen 05/16/25 12:00 05/16/25 12:00 05/16/25 14:00 Temperature Pulse Rate 103 H 95 Respiratory Rate Blood Pressure Pulse Oximetry 99 Oxygen Delivery BiPAP Oxygen Flow Rate Fraction of Inspired Oxygen 40 05/16/25 14:15 05/16/25 14:23 05/16/25 14:24 Temperature Pulse Rate 91 91 93 Respiratory Rate 19 19 20 Blood Pressure Pulse Oximetry 96 Oxygen Delivery BiPAP Oxygen Flow Rate Fraction of Inspired Oxygen 05/16/25 16:00 05/16/25 16:00 05/16/25 16:00 Temperature 98.1 F Pulse Rate 96 101 H Respiratory Rate 16 Blood Pressure 110/58 L Pulse Oximetry 93 99 Oxygen Delivery BiPAP Oxygen Flow Rate Fraction of Inspired Oxygen 40 05/16/25 18:00 05/16/25 20:00 05/16/25 20:00 Temperature Pulse Rate 96 96 Respiratory Rate Blood Pressure Pulse Oximetry 96 Oxygen Delivery High Flow Nasal Cannula Oxygen Flow Rate 3 Fraction of Inspired Oxygen 05/16/25 20:19 05/16/25 20:19 05/16/25 20:26 Temperature Pulse Rate 94 93 Respiratory Rate 20 20 Blood Pressure Pulse Oximetry 94 Oxygen Delivery Nasal Cannula Oxygen Flow Rate 3 Fraction of Inspired Oxygen 05/16/25 20:28 05/16/25 20:57 05/16/25 21:45 Temperature 98.0 F Pulse Rate 94 97 85 Respiratory Rate 22 H 22 H Blood Pressure 126/64 Pulse Oximetry 92 92 Oxygen Delivery BiPAP Oxygen Flow Rate Fraction of Inspired Oxygen 05/16/25 22:00 05/16/25 23:40 05/17/25 00:00 Temperature 98.1 F Pulse Rate 94 96 Respiratory Rate 20 Blood Pressure 123/67 Pulse Oximetry 93 94 Oxygen Delivery BiPAP Oxygen Flow Rate Fraction of Inspired Oxygen 40 05/17/25 00:00 05/17/25 02:00 05/17/25 04:00 Temperature Pulse Rate 83 84 Respiratory Rate Blood Pressure Pulse Oximetry 94 Oxygen Delivery BiPAP Oxygen Flow Rate Fraction of Inspired Oxygen 40 05/17/25 04:00 05/17/25 04:27 05/17/25 04:47 Temperature 98.2 F Pulse Rate 77 80 85 Respiratory Rate 20 23 H Blood Pressure 119/60 Pulse Oximetry 95 96 Oxygen Delivery BiPAP Oxygen Flow Rate Fraction of Inspired Oxygen 05/17/25 04:50 05/17/25 06:00 05/17/25 08:00 Temperature 97.7 F Pulse Rate 86 94 94 Respiratory Rate 24 H Blood Pressure 120/53 L Pulse Oximetry 95 95 Oxygen Delivery High Flow Therapy with Na Oxygen Flow Rate Fraction of Inspired Oxygen Intake/Output Intake/Output: Intake & Output 05/14/25 05/15/25 05/16/25 05/17/25 23:59 23:59 23:59 23:59 Intake Total 7173 033 7504 Output Total 300 1250 1700 Balance 1300 -410 120 Meds/Results Medications: Active Medications Generic Name Dose Route Start Last Admin Trade Name Freq PRN Reason Stop Dose Admin Acetaminophen 1,000 mg 05/14/25 23:34 05/14/25 23:56 Acetaminophen 500 Mg Tablet PO 1,000 mg Q6H PRN Administration Mild Pain (1-3) or Fever Albuterol/Ipratropium 3 ml 05/14/25 20:00 05/16/25 20:19 Ipratropium 0.5 Mg/Albuterol Sulfate 2.5 Mg (Base) Ampul.Neb 3 Ml INHALATION 3 ml Q6HRT SCHUYLER Administration Aspirin 81 mg 05/15/25 09:00 05/16/25 08:29 Aspirin 81 Mg Enteric Tablet PO 81 mg DAILY SCHUYLER Administration Atorvastatin Calcium 80 mg 05/15/25 09:00 05/16/25 08:29 Atorvastatin 40 Mg Tablet PO 80 mg DAILY SCHUYLER Administration Bumetanide 2 mg 05/15/25 09:30 05/15/25 17:52 Bumetanide Inj 2.5 Mg/10 Ml Vial IV PUSH 2 mg On Hold: 05/16/25 07:16 BID SCHUYLER Administration Clopidogrel Bisulfate 75 mg 05/15/25 09:00 05/16/25 08:27 Clopidogrel Bisulfate 75 Mg Tablet PO 75 mg QAM SCHUYLER Administration Cyanocobalamin 1,000 mcg 05/15/25 09:00 05/16/25 08:29 Cyanocobalamin 1,000 Mcg Tablet PO 1,000 mcg QAM SCHUYLER Administration Dextrose 12.5 gm 05/14/25 12:48 Dextrose 50% 25 Gm/50 Ml Syringe IV PUSH PRN PRN Hypoglycemia Protocol Diclofenac Sodium 1 applic 05/14/25 21:00 05/16/25 20:57 Diclofenac Sodium 1% 100 Gm Gel (*Bkc) TOPICAL 1 applic QID SCHUYLER Administration Diphenoxylate HCl/Atropine 1 tablet 05/14/25 19:10 Diphenoxylate/Atropine (*Crx) 2.5 Mg Tablet PO QID PRN Diarrhea Fish Oil 1 gm 05/14/25 21:00 05/16/25 20:56 [place] 3 Polyunsat Fatty Acids 1 Gm Cap PO 1 gm Q12HR SCHUYLER Administration Fluoxetine HCl 20 mg 05/14/25 21:00 05/16/25 20:57 Fluoxetine Hcl 20 Mg Capsule PO 20 mg HS SCHUYLER Administration Fluticasone Propionate 1 spray 05/15/25 09:00 05/16/25 16:47 Fluticasone Propionate 0.05% Na Spr 16 Gm Btl (*Bkc) NASAL 1 spray BID SCHUYLER Administration Gabapentin 600 mg 05/14/25 21:00 05/16/25 20:56 Gabapentin 300 Mg Capsule PO 600 mg Q12HR SCHUYLER Administration Glucagon 1 mg 05/14/25 12:48 Glucagon For Inj 1 Mg Vial IM PRN PRN Hypoglycemia Protocol Glucose 15 gm 05/14/25 12:48 Glucose Oral Gel 15 Gm Of Glucse In 37.5 Gm Tube PO PRN PRN Hypoglycemia Protocol Heparin Sodium (Porcine) 5,000 units 05/16/25 14:00 05/17/25 06:07 Heparin Sodium 5,000 Units/Ml Vial SUB-Q 5,000 units Q8HR SCHUYLER Administration Cefepime HCl 2 gm/ Sodium 50 mls @ 100 mls/hr 05/14/25 21:00 05/16/25 21:20 Chloride IVPB Infused Q12HR SCHUYLER Infusion Dextrose 1,000 mls @ 100 mls/hr 05/14/25 12:48 Dextrose 5% 1,000 Ml IVPB PRN PRN Hypoglycemia Protocol Metronidazole 500 mg in 100 mls @ 100 mls/hr 05/15/25 09:00 05/17/25 03:12 Flagyl 500 Mg/Iso Soln 100 Ml IVPB 100 mls/hr Q6H SCHUYLER Administration Doxycycline Hyclate 100 mg/ 100 mls @ 100 mls/hr 05/15/25 11:00 05/16/25 22:41 Sodium Chloride IVPB 100 mls/hr Q12H SCHUYLER Administration Insulin Aspart 4 - 8 units 05/14/25 17:00 05/16/25 16:46 Insulin Aspart (*Bkc) 100 Units/Ml SUB-Q 6 units TIDWM SCHUYLER Administration Protocol Insulin Aspart 10 units 05/15/25 08:00 05/16/25 16:47 Insulin Aspart (*Bkc) 100 Units/Ml 0.05 units/kg (10 units) 10 units SUB-Q Administration TIDWM SCHUYLER Insulin Glargine 60 units 05/14/25 21:00 05/16/25 21:28 Insulin Glargine (*Bkc) 100 Units/Ml SUB-Q 60 units HS SCHUYLER Administration Loratadine 10 mg 05/15/25 09:00 05/16/25 08:29 Loratadine 10 Mg Tablet PO 10 mg DAILY SCHULYER Administration Metoprolol Tartrate 12.5 mg 05/14/25 21:00 05/16/25 20:57 Metoprolol Tartrate 12.5 Mg Tablet PO 12.5 mg Q12HR SCHUYLER Administration Miscellaneous Information 0 each 05/15/25 00:01 05/17/25 03:07 Dapagliflozin No Sub Generic? Ok To Sub With Jardiance? XX 06/14/25 00:00 Not Given CLARIFY SCHUYLER Non-Formulary Medication 5 mg 05/15/25 09:00 Dapagliflozin Propanediol [Farxiga] PO 06/14/25 08:59 DAILY SCHUYLER Pantoprazole Sodium 40 mg 05/15/25 09:00 05/16/25 08:27 Pantoprazole 40 Mg Tablet PO 40 mg QAM SCHUYLER Administration Perflutren Lipid Microsphere 0 ml 05/15/25 09:32 Perflutren Lipid Microspheres 1.5 Ml Vial Diluted To 10 Ml Total Volume IV PUSH 05/18/25 09:32 ONCE PRN adequate visualization Protocol Pramipexole Dihydrochloride 1 mg 05/14/25 21:00 05/16/25 20:57 Pramipexole 1 Mg Tablet PO 1 mg QHS SCHUYLER Administration Quetiapine Fumarate 50 mg 05/14/25 21:00 05/16/25 20:57 Quetiapine Fumarate 25 Mg Tablet PO 50 mg HS SCHUYLER Administration Tizanidine HCl 4 mg 05/14/25 19:10 Tizanidine Hcl 4 Mg Tablet PO QHS PRN Muscle Spasticity Trazodone HCl 50 mg 05/14/25 21:00 05/16/25 20:57 Trazodone Hcl 50 Mg Tablet PO 50 mg HS SCHUYLER Administration Radiology Results: ITS Impressions Abdomen/Pelvis CT 05/14/25 11:30 IMPRESSION: 1. No acute findings. Chest X-Ray 05/16/25 09:25 IMPRESSION: 1. Persistent bibasilar atelectasis and/or airspace disease. Renal Ultrasound 05/16/25 15:06 IMPRESSION: 1. Normal kidneys without hydronephrosis. Labs Labs: Laboratory Results - last 24 hr 05/15/25 05/16/25 05/16/25 14:33 09:59 10:53 WBC RBC Hgb Hct MCV MCH MCHC RDW Plt Count MPV Immature Gran % (Auto) Neut % (Auto) Lymph % (Auto) [place] % (Auto) Eos % (Auto) Baso % (Auto) Lymph # (Auto) [place] # (Auto) Eos # (Auto) Baso # (Auto) Abs Immat Gran (auto) Absolute Neuts (auto) Absolute Nucleated RBC Nucleated RBC % Puncture Site ABG pH ABG pCO2 ABG pO2 ABG PO2/FiO2 Ratio ABG HCO3 ABG O2 Saturation ABG O2 Content ABG Base Excess A-a Gradient Oxyhemoglobin Total Hemoglobin O2 Delivery Device O2 Liters/Min FiO2 Sodium Potassium Chloride Carbon Dioxide Anion Gap BUN Creatinine Estim Creat Clear Calc Estimated GFR Glucose POC Capillary Glucose Calcium Phosphorus Magnesium Total Bilirubin AST ALT Alkaline Phosphatase Total Creatine Kinase 111 NT-Pro-B Natriuret Pep 3140 H Total Protein Albumin Nasal MRSA (PCR) Not detected Vancomycin Trough 14.3 Chlamy pneumoniae PCR Not detected Adenovirus (PCR) Not detected B. pertussis DNA (PCR) Not detected B.parapertussis DNA PCR Not detected C. difficile (PCR) Coronavirus OC43 (PCR) Not detected Coronavirus HKU1 (PCR) Not detected Coronavirus 229E (PCR) Not detected Coronavirus NL63 (PCR) Not detected Human Metapneumovir PCR Not detected Influenza A (H1) PCR Not detected Influ A (H1/09) PCR Not detected Influenza A (H3) PCR Not detected Influenza Type A (PCR) Not detected Influenza Type B (PCR) Not detected M. pneumoniae (PCR) Not detected Parainfluenza 1 (PCR) Not detected Parainfluenza 2 (PCR) Not detected Parainfluenza 3 (PCR) Not detected Parainfluenza 4 (PCR) Not detected RSV (PCR) Not detected Entero/Rhino (PCR) Detected A SARS-CoV-2 (PCR) Not detected 05/16/25 05/16/25 05/16/25 11:55 16:10 19:18 WBC RBC Hgb Hct MCV MCH MCHC RDW Plt Count MPV Immature Gran % (Auto) Neut % (Auto) Lymph % (Auto) [place] % (Auto) Eos % (Auto) Baso % (Auto) Lymph # (Auto) [place] # (Auto) Eos # (Auto) Baso # (Auto) Abs Immat Gran (auto) Absolute Neuts (auto) Absolute Nucleated RBC Nucleated RBC % Puncture Site ABG pH ABG pCO2 ABG pO2 ABG PO2/FiO2 Ratio ABG HCO3 ABG O2 Saturation ABG O2 Content ABG Base Excess A-a Gradient Oxyhemoglobin Total Hemoglobin O2 Delivery Device O2 Liters/Min FiO2 Sodium Potassium Chloride Carbon Dioxide Anion Gap BUN Creatinine Estim Creat Clear Calc Estimated GFR Glucose POC Capillary Glucose 383 H 344 H Calcium Phosphorus Magnesium Total Bilirubin AST ALT Alkaline Phosphatase Total Creatine Kinase NT-Pro-B Natriuret Pep Total Protein Albumin Nasal MRSA (PCR) Vancomycin Trough Chlamy pneumoniae PCR Adenovirus (PCR) B. pertussis DNA (PCR) B.parapertussis DNA PCR C. difficile (PCR) Negative Coronavirus OC43 (PCR) Coronavirus HKU1 (PCR) Coronavirus 229E (PCR) Coronavirus NL63 (PCR) Human Metapneumovir PCR Influenza A (H1) PCR Influ A (H1/) PCR Influenza A (H3) PCR Influenza Type A (PCR) Influenza Type B (PCR) M. pneumoniae (PCR) Parainfluenza 1 (PCR) Parainfluenza 2 (PCR) Parainfluenza 3 (PCR) Parainfluenza 4 (PCR) RSV (PCR) Entero/Rhino (PCR) SARS-CoV-2 (PCR) 05/16/25 05/17/25 05/17/25 20:42 04:25 06:10 WBC 17.9 H RBC 4.19 L Hgb 11.6 L Hct 38.4 L MCV 91.6 MCH 27.7 MCHC 30.2 L RDW 17.7 H Plt Count 159 MPV 10.7 H Immature Gran % (Auto) 1.0 H Neut % (Auto) 91.0 H Lymph % (Auto) 3.[address] [place] % (Auto) 3.6 Eos % (Auto) 0.3 Baso % (Auto) 0.2 Lymph # (Auto) 0.[address] [place] # (Auto) 0.6 Eos # (Auto) 0.1 Baso # (Auto) 0.0 Abs Immat Gran (auto) 0.18 H Absolute Neuts (auto) 16.3 H Absolute Nucleated RBC 0.000 Nucleated RBC % 0.0 Puncture Site Right radial ABG pH 7.303 L ABG pCO2 49.9 H ABG pO2 93.4 ABG PO2/FiO2 Ratio 2.59 ABG HCO3 24.2 ABG O2 Saturation 96.4 ABG O2 Content 18.3 ABG Base Excess -2.6 A-a Gradient 105.4 Oxyhemoglobin 95.4 Total Hemoglobin 13.6 O2 Delivery Device Other device O2 Liters/Min FiO2 36 Sodium 132 L Potassium 4.0 Chloride 101 Carbon Dioxide 26 Anion Gap 5 BUN 76 H Creatinine 2.98 H Estim Creat Clear Calc 34 Estimated GFR 21 L Glucose 328 H POC Capillary Glucose 311 H Calcium 8.6 Phosphorus 4.4 Magnesium 2.1 Total Bilirubin 0.4 AST 30 ALT 22 Alkaline Phosphatase 96 Total Creatine Kinase NT-Pro-B Natriuret Pep Total Protein 6.2 L Albumin 3.1 L Nasal MRSA (PCR) Vancomycin Trough Chlamy pneumoniae PCR Adenovirus (PCR) B. pertussis DNA (PCR) B.parapertussis DNA PCR C. difficile (PCR) Coronavirus OC43 (PCR) Coronavirus HKU1 (PCR) Coronavirus 229E (PCR) Coronavirus NL63 (PCR) Human Metapneumovir PCR Influenza A (H1) PCR Influ A (H1/09) PCR Influenza A (H3) PCR Influenza Type A (PCR) Influenza Type B (PCR) M. pneumoniae (PCR) Parainfluenza 1 (PCR) Parainfluenza 2 (PCR) Parainfluenza 3 (PCR) Parainfluenza 4 (PCR) RSV (PCR) Entero/Rhino (PCR) SARS-CoV-2 (PCR)
--- NOTE | 2025-05-17 08:32 | P.PNPL_ITS ---
Progress Note: A&P Assessment and Plan (1) Acute on chronic respiratory failure with hypoxia and hypercapnia: Code(s): J96.21 - Acute and chronic respiratory failure with hypoxia; J96.22 - Acute and chronic respiratory failure with hypercapnia Status: Acute Assessment and Plan: Patient with morbid obesity, BMI 66.4, coronary artery disease status post stents and TAVR on 03/2020, CKD with baseline creatinine 1.5-2, obstructive sleep apnea requiring BiPAP 22/16 with 4 L bleed in. Patient is maintained on BiPAP no rate, pressures 22/16 and 4 L bleed in (through [facility] with [facility] insurance). TSH on 05/15/2025 2.16. Most recent download in the chart: Download 12/25/2023 through 03/23/2020 for through [employer]. Patient is on BiPAP spontaneous rate, pressures 22/16. Usage days greater than or equal to 4 hours is 88%. Average usage on days used is 5 hours and 49 minutes. AHI 18.2, apnea index 17.9, hypopnea index 0.3. Median leak 29.1, 95th percentile leak 62.4, maximal leak 98.5. Central apnea index 2.1. Median tidal volume 317, median respiratory rate 13. Median minute ventilation 4.8. I interpret this download as adequate compliance, high AHI, high leak, low tidal volume, low minute ventilation. Patient presents now with altered mental status, initial blood gas on BiPAP 22/16 with a rate of 16 was 7.37/42/74. patient then had an emesis episode with the mask on and was taken off BiPAP with a blood gas on 8 L 7.24/65/84. He improved and was placed back on BiPAP rate of 16, pressures 22/16 and 36% FiO2 and after 3 hours his blood gas was 7.20/70/84. When I enter the room the patient had a high leak and said the mask and machine were uncomfortable. Switched him to a noninvasive ventilator mode with the AVAPS mode and adjusted the settings to come for resulting in a rate of 20, tidal volume 550, EPAP 10, minimal inspiratory pressure 11, maximal inspiratory pressure 25, inspiratory time 1.0, rise of 5 which is the slowest and 40% FiO2. Patient said this was comfortable. 05/15/25: Plan: Patient is awake and communicative. He does doze off but says he is just tired and taking a nap. I will check an ABG after 1 hour to reassess his hypercarbic respiratory failure. Patient's ABG deteriorated after he had a vomiting episode and he may have aspirated. Currently on vancomycin, cefepime both started 05/14/2025. Flagyl and doxycycline started 05/15/2025. I will send respiratory pathogen panel, urine for Legionella, urine for pneumococcal, serum for me mycoplasma IgM. He has no history of COPD, he is a never smoker, no history of asthma. He was given Solu-Medrol 60 mg IV x1 and I do not see a need to continue this medicine. He is empirically placed on DuoNebs q.6 hours and will continue this for the time being. Patient has peripheral edema and agree with as aggressive diuresis as tolerated by his cardiac and renal systems. Currently the patient is on Bumex 2 mg IV b.i.d.. He is positive 1 L since admission. His weight today is 198 lb. Will attempt to obtain a more recent download From patient's [employer] company, [employer] respiratory care, to assess patient's compliance. Later in day I obtained download from [employer] 02/13/2025 through 05/13/2025. Patient is on BiPAP spontaneous rate, pressures 22/16. Usage days greater than or equal to 4 hours is 86%. Average usage on days used is 5 hours and 34 minutes. AHI 20.7. Apnea index 20.6, hypopnea index 0.1. Central apnea index 1.0. Median leak 53.0. Ninety-fifth percentile leak 92.8. Maximum leak 114.6. I interpret this download as adequate compliance, high AHI, and high leak. Later in the day patient had an echocardiogram which is a technically difficult study. LVEF was 30-35% with diastolic dysfunction. Normal right ventricular size and function, normal right atrial size, no tricuspid regurg, normal aortic valve with no aortic stenosis or aortic regurgitation. 05/16/2025: When I enter the room the patient was on noninvasive ventilation with the AVAPS mode and says that the air was going in too fast and I decreased his inspiratory time from 1.0 to 1.2. He said this was improved. He said this machine felt like his home machine. He told me he was ready to come off the machine. I placed him on 5 L nasal cannula and then decreased him to 3 L nasal cannula saturations 93%. The patient was awake stating he was thirsty and stating he was breathing normal with no cough, phlegm or hemoptysis. He denied fever, chills, rigors. He has been afebrile for 32 hours. White blood cell count 21.0, creatinine 3.18, BUN 67. Yesterday he was -410 mL and cumulative he is positive 440 since admission. His weight is 197 kg. Chest x-ray today shows small lung volumes, cardiomegaly, bibasilar interstitial alveolar infiltrates with no change since 05/15/2025. Patient wore the hospital noninvasive ventilation with the AVAPS mode settings as above with a blood gas of 7.26/57/95. Plan: Mental status has returned to baseline and patient states he is breathing at his baseline. ABG on maximal rate of 20 and tidal volume 550 remains with acute on chronic respiratory acidosis, patient is also in renal failure with creatinine of 3.18 and a serum bicarb of 28. I will continue current AVAPS settings and perform overnight oximetry on 36% FiO2 and an ABG prior to removal in the morning. Patient is positive 440 mL since admission but his creatinine now his increased to 3.18 and I have placed his diuretics on hold. Currently he is on vancomycin and cefepime since 05/14/2025 and doxycycline and Flagyl since 05/15/2025. MRSA swab reordered. Respiratory pathogen panel, urine Legionella, urine pneumococcal and serum mycoplasma IgM pending. Discussed with Dr. Mays. Will follow with you. (2) Obesity hypoventilation syndrome: Code(s): E66.2 - Morbid (severe) obesity with alveolar hypoventilation Status: Acute Assessment and Plan: Patient with morbid obesity, BMI 66.0, no evidence of chronic lung disease such as asthma or COPD. 05/15/2025 TSH 2.16, free T4 0.97 no evidence of thyroid disease. ABG 09/24/2021 7.12/82/ 91 on 2 L nasal cannulae. ABG 05/15/2025 on 8 L nasal cannula 7.24/65/84. patient has been treated at home with BiPAP no rate, pressures 22/16 with 4 L bleed in. patient has obesity hypoventilation syndrome with chronic hypercarbic respiratory failure and would benefit from noninvasive ventilation to prevent further deterioration and subsequent hospitalizations. Patient has failed BiPAP rate 16 with pressures 22/16 and 36% FIO2 with ABG 7./84. In addition his recent download shows an AHI of 20.7 on BiPAP. I have initiated noninvasive ventilation with the AVAPS mode. Most recent download in the chart: Download 12/25/2023 through 03/23/2020 for through [employer]. Patient is on BiPAP spontaneous rate, pressures 22/16. Usage days greater than or equal to 4 hours is 88%. Average usage on days used is 5 hours and 49 minutes. AHI 18.2, apnea index 17.9, hypopnea index 0.3. Median leak 29.1, 95th percentile leak 62.4, maximal leak 98.5. Central apnea index 2.1. Median tidal volume 317, median respiratory rate 13. Median minute ventilation 4.8. I interpret this download as adequate compliance, high AHI, high leak, low tidal volume, low minute ventilation. Patient then had an emesis episode with the mask on and was taken off BiPAP with a blood gas on 8 L 7./84. He improved and was placed back on BiPAP rate of 16, pressures 22/16 and 36% FiO2 and after 3 hours his blood gas was 7.20//84. When I enter the room the patient had a high leak and said the mask and machine were uncomfortable. Switched him to a noninvasive ventilator mode with the AVAPS mode and adjusted the settings to come for resulting in a rate of 20, tidal volume 550, EPAP 10, minimal inspiratory pressure 11, maximal inspiratory pressure 25, inspiratory time 1.0, rise of 5 which is the slowest and 40% FiO2. Patient said this was comfortable. 05/15/25: Plan: Patient is awake and communicative. He does doze off but says he is just tired and taking a nap. I will check an ABG after 1 hour to reassess his hypercarbic respiratory failure. Patient's ABG deteriorated after he had a vomiting episode and he may have aspirated. Currently on vancomycin, cefepime both started 05/14/2025. Flagyl and doxycycline started 05/15/2025. I will send respiratory pathogen panel, urine for Legionella, urine for pneumococcal, serum for me mycoplasma IgM. He has no history of COPD, he is a never smoker, no history of asthma. He was given Solu-Medrol 60 mg IV x1 and I do not see a need to continue this medicine. He is empirically placed on DuoNebs q.6 hours and will continue this for the time being. Patient has peripheral edema and agree with as aggressive diuresis as tolerated by his cardiac and renal systems. Currently the patient is on Bumex 2 mg IV b.i.d.. He is positive 1 L since admission. His weight today is 198 lb. Will attempt to obtain a more recent download From patient's [employer] company, [employer] respiratory care, to assess patient's compliance. Later in day I obtained download from [employer] 02/13/2025 through 05/13/2025. Patient is on BiPAP spontaneous rate, pressures 22/16. Usage days greater than or equal to 4 hours is 86%. Average usage on days used is 5 hours and 34 minutes. AHI 20.7. Apnea index 20.6, hypopnea index 0.1. Central apnea index 1.0. Median leak 53.0. Ninety-fifth percentile leak 92.8. Maximum leak 114.6. I interpret this download as adequate compliance, high AHI, and high leak. Later in the day patient had an echocardiogram which is a technically difficult study. LVEF was 30-35% with diastolic dysfunction. Normal right ventricular size and function, normal right atrial size, no tricuspid regurg, normal aortic valve with no aortic stenosis or aortic regurgitation. 05/16/2025: When I enter the room the patient was on noninvasive ventilation with the AVAPS mode and says that the air was going in too fast and I decreased his inspiratory time from 1.0 to 1.2. He said this was improved. He said this machine felt like his home machine. He told me he was ready to come off the machine. I placed him on 5 L nasal cannula and then decreased him to 3 L nasal cannula saturations 93%. The patient was awake stating he was thirsty and stating he was breathing normal with no cough, phlegm or hemoptysis. He denied fever, chills, rigors. He has been afebrile for 32 hours. White blood cell count 21.0, creatinine 3.18, BUN 67. Yesterday he was -410 mL and cumulative he is positive 440 since admission. His weight is 197 kg. Chest x-ray today shows small lung volumes, cardiomegaly, bibasilar interstitial alveolar infiltrates with no change since 05/15/2025. Patient wore the hospital noninvasive ventilation with the AVAPS mode settings as above with a blood gas of 7.. Plan: Mental status has returned to baseline and patient states he is breathing at his baseline. ABG on maximal rate of 20 and tidal volume 550 remains with acute on chronic respiratory acidosis, patient is also in renal failure with creatinine of 3.18 and a serum bicarb of 28. I will continue current AVAPS settings and perform overnight oximetry on 36% FiO2 and an ABG prior to removal in the morning. Patient is positive 440 mL since admission but his creatinine now his increased to 3.18 and I have placed his diuretics on hold. Currently he is on vancomycin and cefepime since 05/14/2025 and doxycycline and Flagyl since 05/15/2025. MRSA swab reordered. Respiratory pathogen panel, urine Legionella, urine pneumococcal and serum mycoplasma IgM pending. 05/17/2025: Patient states he is feeling back to his baseline. Says his breathing is normal with no cough, phlegm or hemoptysis. When I enter the room he is on 4 L nasal cannula with saturations 95%. I decreased him to 1 L with saturations 93%. patient is afebrile. White blood cell count 17.9, creatinine 2.98, BUN 76, serum bicarb 26. Respiratory pathogen panel returned positive for rhino virus. Urine with E coli. Patient wore the hospital noninvasive ventilator with the AVAPS mode of 20, tidal volume 550, EPAP 10, minimal inspiratory pressure 11, maximal inspiratory pressure 25, inspiratory time 1.2, rise of 5 which is the slowest and 36% FiO2. patient said he slept well with these settings and that he felt like he was get ting more air than when he was on the BiPAP. Patient had an ABG prior to removal of 7.. Patient had an overnight oximetry on these settings with recording duration of 1 hour and 20 minutes, average saturation 95%, low saturation 92%. Time with saturation less than or equal to 88% was 0 minutes. Oxygen desaturation index 1.3. Plan: Mental status has returned to baseline and patient states he is breathing normal. He did state that he developed sinus congestion prior to this hospitalization which may be consistent with rhino virus infection. ABG on maximal rate of 20 and tidal volume 550 on AVAPS improved And will continue these settings. Oxygenation adequate on 36% FiO2. I will initiate the process for home noninvasive ventilator with the AVAPS mode through [facility]. Patient is positive 1000 mL since admission And developed acute kidney injury with a creatinine of 3.18 On 05/16/2025. on 05/17/2025 Creatinine is 2.98. diuretics on hold. Currently was on vancomycin (05/14/25 through 05/16/25 or longer with DAWNA, MRSA negative) and cefepime since 05/14/2025 and doxycycline and Flagyl since 05/15/2025. Will continue cefepime, day 3. Doxycycline and Flagyl, day 2. Urine Legionella, urine pneumococcal and serum mycoplasma IgM pending. Discussed results of echocardiogram and hospitalists will review with Cardiology. Discussed with Dr. Mays. Will follow with you. Subjective Date/time seen: 05/17/25 08:32 Interval history: 05/15/2025: This is a new pulmonary consult for acute respiratory failure. 74-year-old with a history of coronary artery disease, TAVR, Follicular lymphoma stage I diagnosed and completed XRT, immunotherapy on 03/2019, diabetes, osteoarthritis, CKD with baseline creatinine 1.5-2.0, morbid obesity, BMI 66.4, OHS on BiPAP with 4 L bleed in. Regarding patient's coronary artery disease he had a PTCA of his LAD and RCA in 2009. Patient had a TAVR in March of 2020. 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 Regarding his follicular lymphoma stage I diagnosed in the groin on 01/25 with the ultrasounded gaudencio I did a biopsy completed chemotherapy and immuno therapy on . Saw his oncologist on 12/01/2024 with no evidence of recurrence. Followed in the Pulmonary Clinic in last seen on 03/28/2024 for obstructive sleep apnea on BiPAP and chronic respiratory failure related to obesity hypoventilation. States he is compliant with BiPAP 22/16 and 4 L bleed in. He was sleeping well and had no concerns. BiPAP was working fine. Nocturia couple times. He complained of a dry cough and was prescribed Claritin and Flonase. Very severe obstructive sleep apnea evidenced by overall AHI 106.6 on a sleep study in October 2021. This was followed by a BiPAP titration study recommending [id number] with 2L/min O2 bleed in October 2021. Download 12/25/2023 through 03/23/2020 for through [employer]. Patient is on BiPAP spontaneous rate, pressures 22/16. Usage days greater than or equal to 4 hours is 88%. Average usage on days used is 5 hours and 49 minutes. AHI 18.2, apnea index 17.9, hypopnea index 0.3. Median leak 29.1, 95th percentile leak 62.4, maximal leak 98.5. Central apnea index 2.1. Median tidal volume 317, median respiratory rate 13. Median minute ventilation 4.8. I interpret this download as adequate compliance, high AHI, high leak, low tidal volume, low minute ventilation. Recommend follow-up 6 months. 05/14/2025: Patient brought to the emergency room for altered mental status and lethargy. History obtained from the family. In the emergency department he was lethargic with a blood pressure 119/59, heart rate 113, temperature 100.2?, room air saturations 93%. He is placed on 2.5 L and his saturations were 93%. White blood cell count 90 2 minutes 18.4, creatinine 2.13, BUN 44, serum bicarb 27, BNP 1120, COVID, influenza, RSV RT PCR assay negative, UA was consistent with a UTI. Patient had a CT scan of abdomen and pelvis which showed atelectasis in the bases but no pleural effusions, focal consolidations or interstitial lung disease. patient given IV fluids and admitted to the hospital with a urinary tract infection. He was more awake and communicative when talking to the hospitalist who admitted him. Patient was placed on his BiPAP settings of 22/16 and 4 L bleed in and had an ABG of 7.37/42/74. 05/15/25: About 5 hours later the patient vomited with his mask on, and was taken off BiPAP and placed on 8 L nasal cannula the blood gas of 7.24/65/84. The patient was then placed on Airvo 40 L, 40% with blood gas of 7.21/70/72. Patient was then placed back on his BiPAP 22/16 with 36% FiO2 and after 3 hours his blood gas was 7.20/70/84. When air new entered the room the patient was awake, he knew his name, show me 2 fingers and wiggled his toes. He denied being in pain and said he had no infectious complaints prior to coming to the hospital. He denied fever, chills, phlegm production or hemoptysis. He states he wears a BiPAP machine at night but does not know his DME company. Says he uses 4 L at night bleed in. The patient was on BiPAP rate of 16 breathing 20, pressures 22/16 with a tidal volume of 531 and minute ventilation of 8.7. His leak was 107 and his saturations were 92. The patient said this machine was not as comfortable as his home machine and I switched him to a noninvasive ventilator mode with the AVAPS mode and adjusted the settings to come for resulting in a rate of 20, tidal volume 550, EPAP 10, minimal inspiratory pressure 11, maximal inspiratory pressure 25, inspiratory time 1.0, rise of 5 which is the slowest and 40% FiO2. Patient said this was comfortable. Later in day I obtained download from [employer] 02/13/2025 through 05/13/2025. Patient is on BiPAP spontaneous rate, pressures 22/16. Usage days greater than or equal to 4 hours is 86%. Average usage on days used is 5 hours and 34 minutes. AHI 20.7. Apnea index 20.6, hypopnea index 0.1. Central apnea index 1.0. Median leak 53.0. Ninety-fifth percentile leak 92.8. Maximum leak 114.6. I interpret this download as adequate compliance, high AHI, and high leak. Later in the day patient had an echocardiogram which is a technically difficult study. LVEF was 30-35% with diastolic dysfunction. Normal right ventricular size and function, normal right atrial size, no tricuspid regurg, normal aortic valve with no aortic stenosis or aortic regurgitation. 05/16/2025: When I enter the room the patient was on noninvasive ventilation with the AVAPS mode and says that the air was going in to fast and I decreased his inspiratory time from 1.0-1.2. He said this was improved. He said this machine felt like his home machine. He told me he was ready to come off the machine. I placed him on 5 L nasal cannula and then decreased him to 3 L nasal cannula saturations 93%. The patient was awake stating he was thirsty and stating he was breathing normal with no cough, phlegm or hemoptysis. He denied fever, chills, rigors. He has been afebrile for 32 hours. White blood cell count 21.0, creatinine 3.18, BUN 67. Yesterday he was -410 mL and cumulative he is positive 440 since admission. His weight is 197 kg. Chest x-ray today shows small lung volumes, cardiomegaly, bibasilar interstitial alveolar infiltrates with no change since 05/15/2025. Patient wore the hospital noninvasive ventilation with the AVAPS mode settings as above with a blood gas of 7.26/57/95. 05/17/2025: Patient states he is feeling back to his baseline. Says his breathing is normal with no cough, phlegm or hemoptysis. When I enter the room he is on 4 L nasal cannula with saturations 95%. I decreased him to 1 L with saturations 93%. patient is afebrile. White blood cell count 17.9, creatinine 2.98, BUN 76, serum bicarb 26. Respiratory pathogen panel returned positive for rhino virus. Urine with E coli. Patient wore the hospital noninvasive ventilator with the AVAPS mode of 20, tidal volume 550, EPAP 10, minimal inspiratory pressure 11, maximal inspiratory pressure 25, inspiratory time 1.2, rise of 5 which is the slowest and 36% FiO2. patient said he slept well with these settings and that he felt like he was getting more air than when he was on the BiPAP. Patient had an ABG prior to removal of 7./. Patient had an overnight oximetry on these settings with recording duration of 1 hour and 20 minutes, average saturation 95%, low saturation 92%. Time with saturation less than or equal to 88% was 0 minutes. Oxygen desaturation index 1.3. DATA 05/14/25: CT ABDOMEN AND PELVIS WITHOUT CONTRAST Clinical History: septic; UTI, repeated with tighter straps and repositioning Comparison: 09/24/2021 Technique: Unenhanced axial images lung bases to symphysis pubis Coronal, sagittal reformats CT images acquired with automatic exposure control for dose reduction DLP: 3856 mGy-cm Findings: Without intravenous contrast, sensitivity for detecting visceral parenchymal abnormalities decreased. Portions of left hemiabdomen excluded from images Lung bases: Dependent atelectasis. Visualized heart and pericardium: Coronary artery calcification. Liver: Enlarged. Steatosis. Gallbladder: Removed. Spleen: Unremarkable. Pancreas: Atrophy. Adrenal glands: Unremarkable. Kidneys: Right kidney- No hydronephrosis. No renal stones. Left kidney- No hydronephrosis. No renal stones. Distal esophagus/stomach: Unremarkable. Small bowel loops: Normal caliber and wall thickness. Colon: Diverticula. Normal caliber and wall thickness. Appendix not seen. Nodes: Prominent partially calcified nodes right groin. Peritoneum: No ascites. No free intraperitoneal air. Urinary bladder: Mild wall thickening but under distended. Prostate: Unremarkable. Bones: No acute bony abnormality. Soft tissues: Midline abdominal wall hernia mesh. Unopacified abdominal aorta: No aneurysmal dilatation. IMPRESSION: 1. No acute findings. 03/05/22 - Overnight oximetry on BiPAP 22/16 with 3L/min O2 - Time spent at or below 88% saturation was 33 min. He was advised to increase liter flow to 4L/min. 02/11/22 - Overnight oximetry on BiPAP 22/16 with 2L/min bleed in - time spent at or below 88% saturation was 54 min. 11/06/21 - BiPAP titration - BiPAP [id number] with 2L/min O2 bleed in was recommended. 10/29/21 - Split PSG - Very severe obstructive sleep apnea, overall AHI 106.6 events per hour. 09/24/2021: Echo Summary 1. Technically difficult study with limited views. Regional wall motion assessment limited despite definity contrast enhancement due to poor endomyocardial border definition. 2. Left ventricular chamber dimension is normal. 3. Left ventricular systolic function is normal, estimated at 55-60%. 4. The left ventricular diastolic function is grade I diastolic dysfunction. 5. There is no increased left ventricular wall thickness. 6. There is mild aortic valve stenosis with a peak velocity of 307.88 cm/s, mean gradient of 18 mmHg, and aortic valve area of 1.7cm2. 7. The aortic valve is not well visualized. Left Ventricle Technically difficult study with limited views. Regional wall motion assessment limited despite definity contrast enhancement due to poor endomyocardial border definition. Left ventricular chamber dimension is normal. Left ventricular systolic function is normal, estimated at 55-60%. There is no increased left ventricular wall thickness. The left ventricular diastolic function is grade I diastolic dysfunction. Right Ventricle Right ventricular chamber dimension is normal. Right ventricular systolic function is normal. Left Atria Left atrial chamber dimension is normal. Right Atria Right atrial chamber dimension is normal. RVSP equals 18 01/17/2021: EXAMINATION: CT chest abdomen pelvis w con EXAM DATE: 01/17/2021 10:08 INDICATION: Follicular lymphoma, inguinal region. TECHNIQUE: Spiral CT of the chest, abdomen and pelvis was performed following intravenous injection of 100 mL Omnipaque 350. Axial, coronal and sagittal i mages chest, abdomen and pelvis were reviewed. Coronal maximum intensity pixel images of chest reviewed. The dose-length product (DLP) for this examination was 1990.84 mGy-cm. The exposure was tailored according to patient size (auto mA exposure control), and iterative reconstruction (ASIR) was used as additional dose reduction technique. Comparison is made to prior examination from chest CT 07/21/2020, chest abdomen pelvis CT 01/18/2020. FINDINGS: CHEST: Previously seen bibasilar pneumonia has resolved. There are some residual linear opacities consistent with scarring or atelectasis. Some scattered left apical granulomata. Aortic stent or valve, new compared to prior study. There are no pleural or pericardial effusions. Tracheobronchial tree is patent. There is no mediastinal, hilar or axillary lymphadenopathy. There is no pneumothorax. Heart normal in size. Probable left coronary arterial stent. Right-sided portacatheter. ABDOMEN PELVIS: There is right inguinal lymph node with some coarse calcifications measuring 5.2 x 2.8 cm (previously about 6 x 3 cm), mild interval decrease in size compared to previous study. This is consistent with treated lymphoma. No other pathologically enlarged lymph nodes identified. Anterior abdominal wall mesh. The liver, spleen, adrenal glands and pancreas are unremarkable. Gallbladder is unremarkable. No biliary obstruction. Portal and splenic veins are patent. Kidneys enhance symmetrically. There is no hydronephrosis. The prostate is unremarkable. The bladder is unremarkable. The appendix is not positively visualized. There is no pericecal inflammatory change to suggest appendicitis. The stomach and small bowel are unremarkable. There is expected amount of colonic stool. No free intraperitoneal gas. Th ere are no osteoblastic or osteolytic lesions identified. Moderate to severe lumbar disc disease. IMPRESSION: 1. Enlarged right inguinal lymph node, but with mild interval decrease in size. Treated lymphoma. 2. Chronic and surgical changes. Review of Systems Constitutional: Constitutional: Reports no additional constitutional complaints Eyes: Eyes: Reports no additional eye complaints ENT: Reports system reviewed and no additional complaints, except as documented Cardiovascular: Cardiovascular: Reports no additional cardiovascular complaints Respiratory: Respiratory: Reports no additional respiratory complaints Gastrointestinal: Gastrointestinal: Reports no additional gastrointestinal complaints Musculoskeletal: Musculoskeletal: Reports no additional musculoskeletal complaints Neurologic: Reports system reviewed and no additional complaints, except as documented Psychiatric: Psychiatric: Reports no additional psychiatric complaints Endocrine: Endocrine: Reports no additional endocrine complaints Hematologic/Lymphatic: Hematologic/Lymphatic: Reports no additional hematologic/lymphatic complaints Allergic/Immunologic: Allergic/Immunologic: Reports no additional allergic/immunologic complaints Exam Const: General: cooperative, comfortable and no acute distress Orientation/consciousness: oriented to person, oriented to place and oriented to time Other: No acute distress on noninvasive ventilation. HENMT: Head: normal to inspection Ears: hearing grossly normal bilaterally Other: And IV mask in place. Eyes: General: appearance normal, both eyes and all related structures Neck: Neck: normal visual inspection Chest: Chest palpation & inspection: normal inspection of the chest Resp: Effort & Inspection: normal respiratory effort and able to speak in complete sentences Auscultation: no crackles, no rales, no rhonchi, no wheezes and diminished lung sounds Other: Morbidly obese Cardio: Other: regular rate GI: Inspection: normal to inspection Other: no tenderness to deep palpation. Morbidly obese. Skin: General skin exam: normal color Neuro: General: oriented to person, oriented to place and oriented to time Extrem: General: normal to inspection and edema Other: improved edema Psych: Appearance: grossly normal Objective Data Vital Signs Vital Signs: Vital Signs - 24 hr 05/16/25 10:00 05/16/25 12:00 05/16/25 12:00 Temperature 37.2 C Pulse Rate 100 102 H 103 H Respiratory Rate 20 Blood Pressure 104/50 L Pulse Oximetry 95 Oxygen Delivery Oxygen Flow Rate Fraction of Inspired Oxygen 05/16/25 12:00 05/16/25 14:00 05/16/25 14:15 Temperature Pulse Rate 95 91 Respiratory Rate 19 Blood Pressure Pulse Oximetry 99 Oxygen Delivery BiPAP Oxygen Flow Rate Fraction of Inspired Oxygen 40 05/16/25 14:23 05/16/25 14:24 05/16/25 16:00 Temperature 36.7 C Pulse Rate 91 93 96 Respiratory Rate 19 20 16 Blood Pressure 110/58 L Pulse Oximetry 96 93 Oxygen Delivery BiPAP Oxygen Flow Rate Fraction of Inspired Oxygen 05/16/25 16:00 05/16/25 16:00 05/16/25 18:00 Temperature Pulse Rate 101 H 96 Respiratory Rate Blood Pressure Pulse Oximetry 99 Oxygen Delivery BiPAP Oxygen Flow Rate Fraction of Inspired Oxygen 40 05/16/25 20:00 05/16/25 20:00 05/16/25 20:19 Temperature Pulse Rate 96 Respiratory Rate Blood Pressure Pulse Oximetry 96 94 Oxygen Delivery High Flow Nasal Cannula Nasal Cannula Oxygen Flow Rate 3 3 Fraction of Inspired Oxygen 05/16/25 20:19 05/16/25 20:26 05/16/25 20:28 Temperature 36.7 C Pulse Rate 94 93 94 Respiratory Rate 20 20 22 H Blood Pressure 126/64 Pulse Oximetry 92 Oxygen Delivery Oxygen Flow Rate Fraction of Inspired Oxygen 05/16/25 20:57 05/16/25 21:45 05/16/25 22:00 Temperature Pulse Rate 97 85 94 Respiratory Rate 22 H Blood Pressure Pulse Oximetry 92 Oxygen Delivery BiPAP Oxygen Flow Rate Fraction of Inspired Oxygen 05/16/25 23:40 05/17/25 00:00 05/17/25 00:00 Temperature 36.7 C Pulse Rate 96 83 Respiratory Rate 20 Blood Pressure 123/67 Pulse Oximetry 93 94 Oxygen Delivery BiPAP Oxygen Flow Rate Fraction of Inspired Oxygen 40 05/17/25 02:00 05/17/25 04:00 05/17/25 04:00 Temperature Pulse Rate 84 77 Respiratory Rate Blood Pressure Pulse Oximetry 94 Oxygen Delivery BiPAP Oxygen Flow Rate Fraction of Inspired Oxygen 40 05/17/25 04:27 05/17/25 04:47 05/17/25 04:50 Temperature 36.8 C Pulse Rate 80 85 86 Respiratory Rate 20 23 H Blood Pressure 119/60 Pulse Oximetry 95 96 95 Oxygen Delivery BiPAP High Flow Therapy with Na Oxygen Flow Rate Fraction of Inspired Oxygen 05/17/25 06:00 05/17/25 08:00 Temperature 36.5 C Pulse Rate 94 94 Respiratory Rate 24 H Blood Pressure 120/53 L Pulse Oximetry 95 Oxygen Delivery Oxygen Flow Rate Fraction of Inspired Oxygen Intake/Output Intake/Output: Intake & Output 05/14/25 05/15/25 05/16/25 05/17/25 23:59 23:59 23:59 23:59 Intake Total 4057 638 1720 Output Total 300 1250 1700 Balance 1300 -410 120 Meds/Results Medications: Active Medications Generic Name Dose Route Start Last Admin Trade Name Freq PRN Reason Stop Dose Admin Acetaminophen 1,000 mg 05/14/25 23:34 05/14/25 23:56 Acetaminophen 500 Mg Tablet PO 1,000 mg Q6H PRN Administration Mild Pain (1-3) or Fever Aspirin 81 mg 05/15/25 09:00 05/16/25 08:29 Aspirin 81 Mg Enteric Tablet PO 81 mg DAILY SCHUYLER Administration Atorvastatin Calcium 80 mg 05/15/25 09:00 05/16/25 08:29 Atorvastatin 40 Mg Tablet PO 80 mg DAILY [facility]ER Administration Bumetanide 2 mg 05/15/25 09:30 05/15/25 17:52 Bumetanide Inj 2.5 Mg/10 Ml Vial IV PUSH 2 mg On Hold: 05/16/25 07:16 BID SCHU[facility]ER Administration Clopidogrel Bisulfate 75 mg 05/15/25 09:00 05/16/25 08:27 Clopidogrel Bisulfate 75 Mg Tablet PO 75 mg QAM SCHU[facility]ER Administration Cyanocobalamin 1,000 mcg 05/15/25 09:00 05/16/25 08:29 Cyanocobalamin 1,000 Mcg Tablet PO 1,000 mcg QAM SCHU[facility]ER Administration Dextrose 12.5 gm 05/14/25 12:48 Dextrose 50% 25 Gm/50 Ml Syringe IV PUSH PRN PRN Hypoglycemia Protocol Diclofenac Sodium 1 applic 05/14/25 21:00 05/16/25 20:57 Diclofenac Sodium 1% 100 Gm Gel (*Bkc) TOPICAL 1 applic QID [facility]ER Administration Diphenoxylate HCl/Atropine 1 tablet 05/14/25 19:10 Diphenoxylate/Atropine (*Crx) 2.5 Mg Tablet PO QID PRN Diarrhea Fish Oil 1 gm 05/14/25 21:00 05/16/25 20:56 [place] 3 Polyunsat Fatty Acids 1 Gm Cap PO 1 gm Q12HR [facility]ER Administration Fluoxetine HCl 20 mg 05/14/25 21:00 05/16/25 20:57 Fluoxetine Hcl 20 Mg Capsule PO 20 mg HS SCHU[facility]ER Administration Fluticasone Propionate 1 spray 05/15/25 09:00 05/16/25 16:47 Fluticasone Propionate 0.05% Na Spr 16 Gm Btl (*Bkc) NASAL 1 spray BID [facility]ER Administration Gabapentin 600 mg 05/14/25 21:00 05/16/25 20:56 Gabapentin 300 Mg Capsule PO 600 mg Q12HR [facility] Administration Glucagon 1 mg 05/14/25 12:48 Glucagon For Inj 1 Mg Vial IM PRN PRN Hypoglycemia Protocol Glucose 15 gm 05/14/25 12:48 Glucose Oral Gel 15 Gm Of Glucse In 37.5 Gm Tube PO PRN PRN Hypoglycemia Protocol Heparin Sodium (Porcine) 5,000 units 05/16/25 14:00 05/17/25 06:07 Heparin Sodium 5,000 Units/Ml Vial SUB-Q 5,000 units Q8HR [facility] Administration Cefepime HCl 2 gm/ Sodium 50 mls @ 100 mls/hr 05/14/25 21:00 05/16/25 21:20 Chloride IVPB Infused Q12HR [facility] Infusion Dextrose 1,000 mls @ 100 mls/hr 05/14/25 12:48 Dextrose 5% 1,000 Ml IVPB PRN PRN Hypoglycemia Protocol Metronidazole 500 mg in 100 mls @ 100 mls/hr 05/15/25 09:00 05/17/25 03:12 Flagyl 500 Mg/Iso Soln 100 Ml IVPB 100 mls/hr Q6H [facility] Administration Doxycycline Hyclate 100 mg/ 100 mls @ 100 mls/hr 05/15/25 11:00 05/16/25 22:41 Sodium Chloride IVPB 100 mls/hr Q12H [facility] Administration Insulin Aspart 4 - 8 units 05/14/25 17:00 05/16/25 16:46 Insulin Aspart (*Bkc) 100 Units/Ml SUB-Q 6 units TIDWM [facility] Administration Protocol Insulin Aspart 15 units 05/17/25 12:00 Insulin Aspart (*Bkc) 100 Units/Ml SUB-Q TIDWM [facility] Insulin Glargine 60 units 05/14/25 21:00 05/16/25 21:28 Insulin Glargine (*Bkc) 100 Units/Ml SUB-Q 60 units HS [facility] Administration Loratadine 10 mg 05/15/25 09:00 05/16/25 08:29 Loratadine 10 Mg Tablet PO 10 mg DAILY SCH[facility] Administration Metoprolol Tartrate 12.5 mg 05/14/25 21:00 05/16/25 20:57 Metoprolol Tartrate 12.5 Mg Tablet PO 12.5 mg Q12HR [facility]ER Administration Miscellaneous Information 0 each 05/15/25 00:01 05/17/25 03:07 Dapagliflozin No Sub Generic? Ok To Sub With Jardiance? XX 06/14/25 00:00 Not Given CLARIFY [facility]ER Non-Formulary Medication 5 mg 05/15/25 09:00 Dapagliflozin Propanediol [Farxiga] PO 06/14/25 08:59 DAILY [facility]ER Pantoprazole Sodium 40 mg 05/15/25 09:00 05/16/25 08:27 Pantoprazole 40 Mg Tablet PO 40 mg QAM [facility] Administration Perflutren Lipid Microsphere 0 ml 05/15/25 09:32 Perflutren Lipid Microspheres 1.5 Ml Vial Diluted To 10 Ml Total Volume IV PUSH 05/18/25 09:32 ONCE PRN adequate visualization Protocol Pramipexole Dihydrochloride 1 mg 05/14/25 21:00 05/16/25 20:57 Pramipexole 1 Mg Tablet PO 1 mg QHS [facility]ER Administration Quetiapine Fumarate 50 mg 05/14/25 21:00 05/16/25 20:57 Quetiapine Fumarate 25 Mg Tablet PO 50 mg HS SCH[facility]ER Administration Tizanidine HCl 4 mg 05/14/25 19:10 Tizanidine Hcl 4 Mg Tablet PO QHS PRN Muscle Spasticity Trazodone HCl 50 mg 05/14/25 21:00 05/16/25 20:57 Trazodone Hcl 50 Mg Tablet PO 50 mg HS [facility]ER Administration Radiology Results: ITS Impressions Abdomen/Pelvis CT 05/14/25 11:30 IMPRESSION: 1. No acute findings. Chest X-Ray 05/16/25 09:25 IMPRESSION: 1. Persistent bibasilar atelectasis and/or airspace disease. Renal Ultrasound 05/16/25 15:06 IMPRESSION: 1. Normal kidneys without hydronephrosis. Labs Labs: Laboratory Results - last 24 hr 05/15/25 05/16/25 05/16/25 14:33 09:59 10:53 WBC RBC Hgb Hct MCV MCH MCHC RDW Plt Count MPV Immature Gran % (Auto) Neut % (Auto) Lymph % (Auto) [place] % (Auto) Eos % (Auto) Baso % (Auto) Lymph # (Auto) [place] # (Auto) Eos # (Auto) Baso # (Auto) Abs Immat Gran (auto) Absolute Neuts (auto) Absolute Nucleated RBC Nucleated RBC % Puncture Site ABG pH ABG pCO2 ABG pO2 ABG PO2/FiO2 Ratio ABG HCO3 ABG O2 Saturation ABG O2 Content ABG Base Excess A-a Gradient Oxyhemoglobin Total Hemoglobin O2 Delivery Device O2 Liters/Min FiO2 Sodium Potassium Chloride Carbon Dioxide Anion Gap BUN Creatinine Estim Creat Clear Calc Estimated GFR Glucose POC Capillary Glucose Calcium Phosphorus Magnesium Total Bilirubin AST ALT Alkaline Phosphatase Total Creatine Kinase 111 NT-Pro-B Natriuret Pep 3140 H Total Protein Albumin Nasal MRSA (PCR) Not detected Vancomycin Trough 14.3 Chlamy pneumoniae PCR Not detected Adenovirus (PCR) Not detected B. pertussis DNA (PCR) Not detected B.parapertussis DNA PCR Not detected C. difficile (PCR) Coronavirus OC43 (PCR) Not detected Coronavirus HKU1 (PCR) Not detected Coronavirus 229E (PCR) Not detected Coronavirus NL63 (PCR) Not detected Human Metapneumovir PCR Not detected Influenza A (H1) PCR Not detected Influ A (H1/09) PCR Not detected Influenza A (H3) PCR Not detected Influenza Type A (PCR) Not detected Influenza Type B (PCR) Not detected M. pneumoniae (PCR) Not detected Parainfluenza 1 (PCR) Not detected Parainfluenza 2 (PCR) Not detected Parainfluenza 3 (PCR) Not detected Parainfluenza 4 (PCR) Not detected RSV (PCR) Not detected Entero/Rhino (PCR) Detected A SARS-CoV-2 (PCR) Not detected 05/16/25 05/16/25 05/16/25 11:55 16:10 19:18 WBC RBC Hgb Hct MCV MCH MCHC RDW Plt Count MPV Immature Gran % (Auto) Neut % (Auto) Lymph % (Auto) [place] % (Auto) Eos % (Auto) Baso % (Auto) Lymph # (Auto) [place] # (Auto) Eos # (Auto) Baso # (Auto) Abs Immat Gran (auto) Absolute Neuts (auto) Absolute Nucleated RBC Nucleated RBC % Puncture Site ABG pH ABG pCO2 ABG pO2 ABG PO2/FiO2 Ratio ABG HCO3 ABG O2 Saturation ABG O2 Content ABG Base Excess A-a Gradient Oxyhemoglobin Total Hemoglobin O2 Delivery Device O2 Liters/Min FiO2 Sodium Potassium Chloride Carbon Dioxide Anion Gap BUN Creatinine Estim Creat Clear Calc Estimated GFR Glucose POC Capillary Glucose 383 H 344 H Calcium Phosphorus Magnesium Total Bilirubin AST ALT Alkaline Phosphatase Total Creatine Kinase NT-Pro-B Natriuret Pep Total Protein Albumin Nasal MRSA (PCR) Vancomycin Trough Chlamy pneumoniae PCR Adenovirus (PCR) B. pertussis DNA (PCR) B.parapertussis DNA PCR C. difficile (PCR) Negative Coronavirus OC43 (PCR) Coronavirus HKU1 (PCR) Coronavirus 229E (PCR) Coronavirus NL63 (PCR) Human Metapneumovir PCR Influenza A (H1) PCR Influ A (H1/09) PCR Influenza A (H3) PCR Influenza Type A (PCR) Influenza Type B (PCR) M. pneumoniae (PCR) Parainfluenza 1 (PCR) Parainfluenza 2 (PCR) Parainfluenza 3 (PCR) Parainfluenza 4 (PCR) RSV (PCR) Entero/Rhino (PCR) SARS-CoV-2 (PCR) 05/16/25 05/17/25 05/17/25 20:42 04:25 06:10 WBC 17.9 H RBC 4.19 L Hgb 11.6 L Hct 38.4 L MCV 91.6 MCH 27.7 MCHC 30.2 L RDW 17.7 H Plt Count 159 MPV 10.7 H Immature Gran % (Auto) 1.0 H Neut % (Auto) 91.0 H Lymph % (Auto) 3.9 L [place] % (Auto) 3.6 Eos % (Auto) 0.3 Baso % (Auto) 0.2 Lymph # (Auto) 0.69 L [place] # (Auto) 0.6 Eos # (Auto) 0.1 Baso # (Auto) 0.0 Abs Immat Gran (auto) 0.18 H Absolute Neuts (auto) 16.3 H Absolute Nucleated RBC 0.000 Nucleated RBC % 0.0 Puncture Site Right radial ABG pH 7.303 L ABG pCO2 49.9 H ABG pO2 93.4 ABG PO2/FiO2 Ratio 2.59 ABG HCO3 24.2 ABG O2 Saturation 96.4 ABG O2 Content 18.3 ABG Base Excess -2.6 A-a Gradient 105.4 Oxyhemoglobin 95.4 Total Hemoglobin 13.6 O2 Delivery Device Other device O2 Liters/Min FiO2 36 Sodium 132 L Potassium 4.0 Chloride 101 Carbon Dioxide 26 Anion Gap 5 BUN 76 H Creatinine 2.98 H Estim Creat Clear Calc 34 Estimated GFR 21 L Glucose 328 H POC Capillary Glucose 311 H Calcium 8.6 Phosphorus 4.4 Magnesium 2.1 Total Bilirubin 0.4 AST 30 ALT 22 Alkaline Phosphatase 96 Total Creatine Kinase NT-Pro-B Natriuret Pep Total Protein 6.2 L Albumin 3.1 L Nasal MRSA (PCR) Vancomycin Trough Chlamy pneumoniae PCR Adenovirus (PCR) B. pertussis DNA (PCR) B.parapertussis DNA PCR C. difficile (PCR) Coronavirus OC43 (PCR) Coronavirus HKU1 (PCR) Coronavirus 229E (PCR) Coronavirus NL63 (PCR) Human Metapneumovir PCR Influenza A (H1) PCR Influ A (H1/09) PCR Influenza A (H3) PCR Influenza Type A (PCR) Influenza Type B (PCR) M. pneumoniae (PCR) Parainfluenza 1 (PCR) Parainfluenza 2 (PCR) Parainfluenza 3 (PCR) Parainfluenza 4 (PCR) RSV (PCR) Entero/Rhino (PCR) SARS-CoV-2 (PCR)
[2025-05-17] MEDS: INSULIN ASPART (*BKC) 100 UNITS/ML SUB-Q ×3 (09:05→16:48)
[2025-05-17] MEDS: DICLOFENAC SODIUM 1% 100 GM GEL (*BKC) 1 APPLIC TOPICAL ×4 (09:06→20:51)
[2025-05-17] MEDS: FLUTICASONE PROPIONATE 0.05% NA SPR 16 GM BTL (*BKC) 1 SPRAY NASAL ×2 (09:06→16:45)
[2025-05-17] MEDS: PANTOPRAZOLE 40 MG TABLET PO (09:07)
[2025-05-17] MEDS: ATORVASTATIN 40 MG TABLET 80 MG PO (09:07)
[2025-05-17] MEDS: OMEGA 3 POLYUNSAT FATTY ACIDS 1 GM CAP PO ×2 (09:07→20:50)
[2025-05-17] MEDS: METOPROLOL TARTRATE 12.5 MG TABLET PO ×2 (09:08→20:50)
[2025-05-17] MEDS: CYANOCOBALAMIN 1,000 MCG TABLET 1000 MCG PO (09:08)
[2025-05-17] MEDS: GABAPENTIN 300 MG CAPSULE 600 MG PO ×2 (09:08→20:50)
[2025-05-17] MEDS: CLOPIDOGREL BISULFATE 75 MG TABLET PO (09:08)
[2025-05-17] MEDS: ASPIRIN 81 MG ENTERIC TABLET PO (09:08)
[2025-05-17] MEDS: LORATADINE 10 MG TABLET PO (09:08)
[2025-05-17] MEDS: CEFEPIME 2 GM in SODIUM CHLORIDE 0.9% IV 50 ML 100 ML IVPB ×2 (09:08→20:49)
--- NOTE | 2025-05-17 09:11 | P.PNCA_ITS ---
Progress Note: A&P Assessment and Plan (1) Elevated troponin: Code(s): R77.8 - Other specified abnormalities of plasma proteins Status: Acute (2) Cardiomyopathy: Qualifiers: Cardiomyopathy type: unspecified Qualified Code(s): I42.9 - Cardiomyopathy, unspecified Code(s): I42.9 - Cardiomyopathy, unspecified Status: Acute (3) CAD (coronary artery disease): Code(s): I25.10 - Atherosclerotic heart disease of [place] coronary artery without angina pectoris Status: Acute (4) Acute on chronic respiratory failure with hypoxia and hypercapnia: Code(s): J96.21 - Acute and chronic respiratory failure with hypoxia; J96.22 - Acute and chronic respiratory failure with hypercapnia Status: Acute (5) Pneumonia: Qualifiers: Laterality: unspecified laterality Lung location: unspecified part of lung Pneumonia type: due to unspecified organism Qualified Code(s): J18.9 - Pneumonia, unspecified organism Code(s): J18.9 - Pneumonia, unspecified organism Status: Acute (6) Morbid obesity with body mass index (BMI) of 50.0 to 59.9 in adult: Code(s): E66.01 - Morbid (severe) obesity due to excess calories; Z68.43 - Body mass index [BMI] 50.0-59.9, adult Status: Acute (7) CKD (chronic kidney disease): Code(s): N18.9 - Chronic kidney disease, unspecified Status: Chronic Plan NSTEMI-Patient with elevated troponin that are flat and not consistent with ACS. Most likely suggestive of demand ischemia in setting of UTI and PNA. His EKG demonstrated a NSR with no acute ST/T wave changes. He does have known history of CAD, but currently chest pain free. Echo does demonstrate decline in EF from 2021, but at this time no invasive w/u is planned given patient acute infection, body habitus and CKD. Would manage medically. Continue aspirin 81mg daily plavix 75 mg daily, atorvastatin 80 mg daily. Acute/Chronic respiratory failure: In the setting of obesity hypoventilation syndrome and pneumonia. Now on O2 NC. BIPAP for all sleep. Pulmonary is following. Pneumonia. Continue antibiotics as per primary team UTI. Antibiotics as per primary team Cardiomyopathy-Echo reported EF of 30-35% with anteroseptal and apex hypokinesis. Did review images with Dr. Silva and felt that EF of 40%. Last echo in hospital in 2021 reported EF of 55-60%, but echo in office in 2020 demonstrated EF of 35%. Unclear if decline in EF is truly ischemic or related to his acute infectious process. At this time patient will be managed medically in setting of acute infection and worsening CKD. Will continue with diuresis as tolerated/needed. Continue farxiga. On Metoprolol 12.5mg BID, will change to Toprol XL 25 mg daily at ma. No ARB/ARNI at this time given his renal function. CHF-acute decompensated combined systolic and diastolic dysfunction. Patient with EF of 30-35%. His CXR demonstrated pulmonary vascular congestion. He is s/p IV diuresis with good UO. Diuretics held yesterday and renal function improved. Will monitor possible resume PO in am History of CAD. With stent to RCA and LAD in the past. Continue aspirin, plavix and statin. History of TAVR. Chronic Kidney Disease. CR has gone from 2.52-->3.18-->2.98. Follows OP with nephrology and may benefit with consult. Monitor output closely. Morbid obesity Echo images reviewed with Dr. Silva. He feels EF is around 40% with combined systolic/diastolic dysfunction and apical hypokinesis. Unable to comment on PASP given echo images secondary to patient body habitus Subjective Date/time seen: 05/17/25 09:11 Interval history: Patient lyiging in bed sleeping. Arouses to voice. Feeling much improved this am. No chest pain or pressure States edema improved. States shortness of breath has improved as well. Review of Systems Review of Systems: All systems reviewed & are unremarkable except as noted in HPI and below Exam Narrative: General: Alert and oriented x 3. NAD Neck: no JVD Resp: decreased BS bilaterally CV: S1, S2 GI: abdomen round obese, non-tender Extremities: chronic bilateral LE edema (improved) Objective Data Vital Signs Vital Signs: Vital Signs - 24 hr 05/16/25 10:05/16/25 12:00 05/16/25 12:00 Temperature 37.2 C Pulse Rate 100 102 H 103 H Respiratory Rate 20 Blood Pressure 104/50 L Pulse Oximetry 95 Oxygen Delivery Oxygen Flow Rate Fraction of Inspired Oxygen 05/16/25 12:00 05/16/25 14:00 05/16/25 14:15 Temperature Pulse Rate 95 91 Respiratory Rate 19 Blood Pressure Pulse Oximetry 99 Oxygen Delivery BiPAP Oxygen Flow Rate Fraction of Inspired Oxygen 40 05/16/25 14:23 05/16/25 14:24 05/16/25 16:00 Temperature 36.7 C Pulse Rate 91 93 96 Respiratory Rate 19 20 16 Blood Pressure 110/58 L Pulse Oximetry 96 93 Oxygen Delivery BiPAP Oxygen Flow Rate Fraction of Inspired Oxygen 05/16/25 16:00 05/16/25 16:00 05/16/25 18:00 Temperature Pulse Rate 101 H 96 Respiratory Rate Blood Pressure Pulse Oximetry 99 Oxygen Delivery BiPAP Oxygen Flow Rate Fraction of Inspired Oxygen 40 05/16/25 20:00 05/16/25 20:00 05/16/25 20:19 Temperature Pulse Rate 96 Respiratory Rate Blood Pressure Pulse Oximetry 96 94 Oxygen Delivery High Flow Nasal Cannula Nasal Cannula Oxygen Flow Rate 3 3 Fraction of Inspired Oxygen 05/16/25 20:19 05/16/25 20:26 05/16/25 20:28 Temperature 36.7 C Pulse Rate 94 93 94 Respiratory Rate 20 20 22 H Blood Pressure 126/64 Pulse Oximetry 92 Oxygen Delivery Oxygen Flow Rate Fraction of Inspired Oxygen 05/16/25 20:57 05/16/25 21:45 05/16/25 22:00 Temperature Pulse Rate 97 85 94 Respiratory Rate 22 H Blood Pressure Pulse Oximetry 92 Oxygen Delivery BiPAP Oxygen Flow Rate Fraction of Inspired Oxygen 05/16/25 23:40 05/17/25 00:00 05/17/25 00:00 Temperature 36.7 C Pulse Rate 96 83 Respiratory Rate 20 Blood Pressure 123/67 Pulse Oximetry 93 94 Oxygen Delivery BiPAP Oxygen Flow Rate Fraction of Inspired Oxygen 40 05/17/25 02:00 05/17/25 04:00 05/17/25 04:00 Temperature Pulse Rate 84 77 Respiratory Rate Blood Pressure Pulse Oximetry 94 Oxygen Delivery BiPAP Oxygen Flow Rate Fraction of Inspired Oxygen 40 05/17/25 04:27 05/17/25 04:47 05/17/25 04:50 Temperature 36.8 C Pulse Rate 80 85 86 Respiratory Rate 20 23 H Blood Pressure 119/60 Pulse Oximetry 95 96 95 Oxygen Delivery BiPAP High Flow Therapy with Na Oxygen Flow Rate Fraction of Inspired Oxygen 05/17/25 06:00 05/17/25 08:00 05/17/25 09:08 Temperature 36.5 C Pulse Rate 94 94 102 H Respiratory Rate 24 H Blood Pressure 120/53 L Pulse Oximetry 95 Oxygen Delivery Oxygen Flow Rate Fraction of Inspired Oxygen Intake/Output Intake/Output: Intake & Output 05/14/25 05/15/25 05/16/25 05/17/25 23:59 23:59 23:59 23:59 Intake Total 0216 461 6952 100 Output Total 300 1250 1700 Balance 1300 -410 120 100 Meds/Results Medications: Active Medications Generic Name Dose Route Start Last Admin Trade Name Freq PRN Reason Stop Dose Admin Acetaminophen 1,000 mg 05/14/25 23:34 05/14/25 23:56 Acetaminophen 500 Mg Tablet PO 1,000 mg Q6H PRN Administration Mild Pain (1-3) or Fever Aspirin 81 mg 05/15/25 09:00 05/17/25 09:08 Aspirin 81 Mg Enteric Tablet PO 81 mg DAILY SCHUYLER Administration Atorvastatin Calcium 80 mg 05/15/25 09:00 05/17/25 09:07 Atorvastatin 40 Mg Tablet PO 80 mg DAILY SCHU[facility]ER Administration Bumetanide 2 mg 05/15/25 09:30 05/15/25 17:52 Bumetanide Inj 2.5 Mg/10 Ml Vial IV PUSH 2 mg On Hold: 05/16/25 07:16 BID SCHUYLER Administration Clopidogrel Bisulfate 75 mg 05/15/25 09:00 05/17/25 09:08 Clopidogrel Bisulfate 75 Mg Tablet PO 75 mg QAM SCHUYLER Administration Cyanocobalamin 1,000 mcg 05/15/25 09:00 05/17/25 09:08 Cyanocobalamin 1,000 Mcg Tablet PO 1,000 mcg QAM SCHUYLER Administration Dextrose 12.5 gm 05/14/25 12:48 Dextrose 50% 25 Gm/50 Ml Syringe IV PUSH PRN PRN Hypoglycemia Protocol Diclofenac Sodium 1 applic 05/14/25 21:00 05/17/25 09:06 Diclofenac Sodium 1% 100 Gm Gel (*Bkc) TOPICAL 1 applic QID SCHU[facility]ER Administration Diphenoxylate HCl/Atropine 1 tablet 05/14/25 19:10 Diphenoxylate/Atropine (*Crx) 2.5 Mg Tablet PO QID PRN Diarrhea Fish Oil 1 gm 05/14/25 21:00 05/17/25 09:07 [place] 3 Polyunsat Fatty Acids 1 Gm Cap PO 1 gm Q12HR SCHU[facility]ER Administration Fluoxetine HCl 20 mg 05/14/25 21:00 05/16/25 20:57 Fluoxetine Hcl 20 Mg Capsule PO 20 mg HS SCHUYLER Administration Fluticasone Propionate 1 spray 05/15/25 09:00 05/17/25 09:06 Fluticasone Propionate 0.05% Na Spr 16 Gm Btl (*Bkc) NASAL 1 spray BID SCHUYLER Administration Gabapentin 600 mg 05/14/25 21:00 05/17/25 09:08 Gabapentin 300 Mg Capsule PO 600 mg Q12HR SCHU[facility]ER Administration Glucagon 1 mg 05/14/25 12:48 Glucagon For Inj 1 Mg Vial IM PRN PRN Hypoglycemia Protocol Glucose 15 gm 05/14/25 12:48 Glucose Oral Gel 15 Gm Of Glucse In 37.5 Gm Tube PO PRN PRN Hypoglycemia Protocol Heparin Sodium (Porcine) 5,000 units 05/16/25 14:00 05/17/25 06:07 Heparin Sodium 5,000 Units/Ml Vial SUB-Q 5,000 units Q8HR [facility]ER Administration Cefepime HCl 2 gm/ Sodium 50 mls @ 100 mls/hr 05/14/25 21:00 05/17/25 09:08 Chloride IVPB 100 mls/hr Q12HR [facility] Administration Dextrose 1,000 mls @ 100 mls/hr 05/14/25 12:48 Dextrose 5% 1,000 Ml IVPB PRN PRN Hypoglycemia Protocol Metronidazole 500 mg in 100 mls @ 100 mls/hr 05/15/25 09:00 05/17/25 09:08 Flagyl 500 Mg/Iso Soln 100 Ml IVPB 100 mls/hr Q6H [facility] Administration Doxycycline Hyclate 100 mg/ 100 mls @ 100 mls/hr 05/15/25 11:00 05/16/25 22:41 Sodium Chloride IVPB 100 mls/hr Q12H [facility] Administration Insulin Aspart 4 - 8 units 05/14/25 17:00 05/17/25 09:05 Insulin Aspart (*Bkc) 100 Units/Ml SUB-Q 6 units TIDWM [facility]ER Administration Protocol Insulin Aspart 15 units 05/17/25 12:00 Insulin Aspart (*Bkc) 100 Units/Ml SUB-Q TIDWM [facility] Insulin Glargine 60 units 05/14/25 21:00 05/16/25 21:28 Insulin Glargine (*Bkc) 100 Units/Ml SUB-Q 60 units HS SCH[facility]ER Administration Loratadine 10 mg 05/15/25 09:00 05/17/25 09:08 Loratadine 10 Mg Tablet PO 10 mg DAILY SCH[facility]ER Administration Metoprolol Tartrate 12.5 mg 05/14/25 21:00 05/17/25 09:08 Metoprolol Tartrate 12.5 Mg Tablet PO 12.5 mg Q12HR [facility] Administration Miscellaneous Information 0 each 05/15/25 00:01 05/17/25 03:07 Dapagliflozin No Sub Generic? Ok To Sub With Jardiance? XX 06/14/25 00:00 Not Given CLARIFY [facility]ER Non-Formulary Medication 5 mg 05/15/25 09:00 Dapagliflozin Propanediol [Farxiga] PO 06/14/25 08:59 DAILY SCHU[facility]ER Pantoprazole Sodium 40 mg 05/15/25 09:00 05/17/25 09:07 Pantoprazole 40 Mg Tablet PO 40 mg QAM SCH[facility]ER Administration Perflutren Lipid Microsphere 0 ml 05/15/25 09:32 Perflutren Lipid Microspheres 1.5 Ml Vial Diluted To 10 Ml Total Volume IV PUSH 05/18/25 09:32 ONCE PRN adequate visualization Protocol Pramipexole Dihydrochloride 1 mg 05/14/25 21:00 05/16/25 20:57 Pramipexole 1 Mg Tablet PO 1 mg QHS SCHU[facility]ER Administration Quetiapine Fumarate 50 mg 05/14/25 21:00 05/16/25 20:57 Quetiapine Fumarate 25 Mg Tablet PO 50 mg HS SCHU[facility]ER Administration Tizanidine HCl 4 mg 05/14/25 19:10 Tizanidine Hcl 4 Mg Tablet PO QHS PRN Muscle Spasticity Trazodone HCl 50 mg 05/14/25 21:00 05/16/25 20:57 Trazodone Hcl 50 Mg Tablet PO 50 mg HS SCHU[facility]ER Administration Radiology Results: ITS Impressions Abdomen/Pelvis CT 05/14/25 11:30 IMPRESSION: 1. No acute findings. Chest X-Ray 05/16/25 09:25 IMPRESSION: 1. Persistent bibasilar atelectasis and/or airspace disease. Renal Ultrasound 05/16/25 15:06 IMPRESSION: 1. Normal kidneys without hydronephrosis. Labs Labs: Laboratory Results - last 24 hr 05/15/25 05/16/25 05/16/25 14:33 09:59 10:53 WBC RBC Hgb Hct MCV MCH MCHC RDW Plt Count MPV Immature Gran % (Auto) Neut % (Auto) Lymph % (Auto) Stewart % (Auto) Eos % (Auto) Baso % (Auto) Lymph # (Auto) Stewart # (Auto) Eos # (Auto) Baso # (Auto) Abs Immat Gran (auto) Absolute Neuts (auto) Absolute Nucleated RBC Nucleated RBC % Puncture Site ABG pH ABG pCO2 ABG pO2 ABG PO2/FiO2 Ratio ABG HCO3 ABG O2 Saturation ABG O2 Content ABG Base Excess A-a Gradient Oxyhemoglobin Total Hemoglobin O2 Delivery Device O2 Liters/Min FiO2 Sodium Potassium Chloride Carbon Dioxide Anion Gap BUN Creatinine Estim Creat Clear Calc Estimated GFR Glucose POC Capillary Glucose Calcium Phosphorus Magnesium Total Bilirubin AST ALT Alkaline Phosphatase Total Creatine Kinase 111 NT-Pro-B Natriuret Pep 3140 H Total Protein Albumin Nasal MRSA (PCR) Not detected Vancomycin Trough 14.3 Chlamy pneumoniae PCR Not detected Adenovirus (PCR) Not detected B. pertussis DNA (PCR) Not detected B.parapertussis DNA PCR Not detected C. difficile (PCR) Coronavirus OC43 (PCR) Not detected Coronavirus HKU1 (PCR) Not detected Coronavirus 229E (PCR) Not detected Coronavirus NL63 (PCR) Not detected Human Metapneumovir PCR Not detected Influenza A (H1) PCR Not detected Influ A (H1/09) PCR Not detected Influenza A (H3) PCR Not detected Influenza Type A (PCR) Not detected Influenza Type B (PCR) Not detected M. pneumoniae (PCR) Not detected Parainfluenza 1 (PCR) Not detected Parainfluenza 2 (PCR) Not detected Parainfluenza 3 (PCR) Not detected Parainfluenza 4 (PCR) Not detected RSV (PCR) Not detected Entero/Rhino (PCR) Detected A SARS-CoV-2 (PCR) Not detected 05/16/25 05/16/25 05/16/25 11:55 16:10 19:18 WBC RBC Hgb Hct MCV MCH MCHC RDW Plt Count MPV Immature Gran % (Auto) Neut % (Auto) Lymph % (Auto) Stewart % (Auto) Eos % (Auto) Baso % (Auto) Lymph # (Auto) Stewart # (Auto) Eos # (Auto) Baso # (Auto) Abs Immat Gran (auto) Absolute Neuts (auto) Absolute Nucleated RBC Nucleated RBC % Puncture Site ABG pH ABG pCO2 ABG pO2 ABG PO2/FiO2 Ratio ABG HCO3 ABG O2 Saturation ABG O2 Content ABG Base Excess A-a Gradient Oxyhemoglobin Total Hemoglobin O2 Delivery Device O2 Liters/Min FiO2 Sodium Potassium Chloride Carbon Dioxide Anion Gap BUN Creatinine Estim Creat Clear Calc Estimated GFR Glucose POC Capillary Glucose 383 H 344 H Calcium Phosphorus Magnesium Total Bilirubin AST ALT Alkaline Phosphatase Total Creatine Kinase NT-Pro-B Natriuret Pep Total Protein Albumin Nasal MRSA (PCR) Vancomycin Trough Chlamy pneumoniae PCR Adenovirus (PCR) B. pertussis DNA (PCR) B.parapertussis DNA PCR C. difficile (PCR) Negative Coronavirus OC43 (PCR) Coronavirus HKU1 (PCR) Coronavirus 229E (PCR) Coronavirus NL63 (PCR) Human Metapneumovir PCR Influenza A (H1) PCR Influ A (H1/09) PCR Influenza A (H3) PCR Influenza Type A (PCR) Influenza Type B (PCR) M. pneumoniae (PCR) Parainfluenza 1 (PCR) Parainfluenza 2 (PCR) Parainfluenza 3 (PCR) Parainfluenza 4 (PCR) RSV (PCR) Entero/Rhino (PCR) SARS-CoV-2 (PCR) 05/16/25 05/17/25 05/17/25 20:42 04:25 06:10 WBC 17.9 H RBC 4.19 L Hgb 11.6 L Hct 38.4 L MCV 91.6 MCH 27.7 MCHC 30.2 L RDW 17.7 H Plt Count 159 MPV 10.7 H Immature Gran % (Auto) 1.0 H Neut % (Auto) 91.0 H Lymph % (Auto) 3.9 L Stewart % (Auto) 3.6 Eos % (Auto) 0.3 Baso % (Auto) 0.2 Lymph # (Auto) 0.69 L [place] # (Auto) 0.6 Eos # (Auto) 0.1 Baso # (Auto) 0.0 Abs Immat Gran (auto) 0.18 H Absolute Neuts (auto) 16.3 H Absolute Nucleated RBC 0.000 Nucleated RBC % 0.0 Puncture Site Right radial ABG pH 7.303 L ABG pCO2 49.9 H ABG pO2 93.4 ABG PO2/FiO2 Ratio 2.59 ABG HCO3 24.2 ABG O2 Saturation 96.4 ABG O2 Content 18.3 ABG Base Excess -2.6 A-a Gradient 105.4 Oxyhemoglobin 95.4 Total Hemoglobin 13.6 O2 Delivery Device Other device O2 Liters/Min FiO2 36 Sodium 132 L Potassium 4.0 Chloride 101 Carbon Dioxide 26 Anion Gap 5 BUN 76 H Creatinine 2.98 H Estim Creat Clear Calc 34 Estimated GFR 21 L Glucose 328 H POC Capillary Glucose 311 H Calcium 8.6 Phosphorus 4.4 Magnesium 2.1 Total Bilirubin 0.4 AST 30 ALT 22 Alkaline Phosphatase 96 Total Creatine Kinase NT-Pro-B Natriuret Pep Total Protein 6.2 L Albumin 3.1 L Nasal MRSA (PCR) Vancomycin Trough Chlamy pneumoniae PCR Adenovirus (PCR) B. pertussis DNA (PCR) B.parapertussis DNA PCR C. difficile (PCR) Coronavirus OC43 (PCR) Coronavirus HKU1 (PCR) Coronavirus 229E (PCR) Coronavirus NL63 (PCR) Human Metapneumovir PCR Influenza A (H1) PCR Influ A (H1/09) PCR Influenza A (H3) PCR Influenza Type A (PCR) Influenza Type B (PCR) M. pneumoniae (PCR) Parainfluenza 1 (PCR) Parainfluenza 2 (PCR) Parainfluenza 3 (PCR) Parainfluenza 4 (PCR) RSV (PCR) Entero/Rhino (PCR) SARS-CoV-2 (PCR) 05/17/25 07:52 WBC RBC Hgb Hct MCV MCH MCHC RDW Plt Count MPV Immature Gran % (Auto) Neut % (Auto) Lymph % (Auto) [place] % (Auto) Eos % (Auto) Baso % (Auto) Lymph # (Auto) [place] # (Auto) Eos # (Auto) Baso # (Auto) Abs Immat Gran (auto) Absolute Neuts (auto) Absolute Nucleated RBC Nucleated RBC % Puncture Site ABG pH ABG pCO2 ABG pO2 ABG PO2/FiO2 Ratio ABG HCO3 ABG O2 Saturation ABG O2 Content ABG Base Excess A-a Gradient Oxyhemoglobin Total Hemoglobin O2 Delivery Device O2 Liters/Min FiO2 Sodium Potassium Chloride Carbon Dioxide Anion Gap BUN Creatinine Estim Creat Clear Calc Estimated GFR Glucose POC Capillary Glucose 339 H Calcium Phosphorus Magnesium Total Bilirubin AST ALT Alkaline Phosphatase Total Creatine Kinase NT-Pro-B Natriuret Pep Total Protein Albumin Nasal MRSA (PCR) Vancomycin Trough Chlamy pneumoniae PCR Adenovirus (PCR) B. pertussis DNA (PCR) B.parapertussis DNA PCR C. difficile (PCR) Coronavirus OC43 (PCR) Coronavirus HKU1 (PCR) Coronavirus 229E (PCR) Coronavirus NL63 (PCR) Human Metapneumovir PCR Influenza A (H1) PCR Influ A (H1/09) PCR Influenza A (H3) PCR Influenza Type A (PCR) Influenza Type B (PCR) M. pneumoniae (PCR) Parainfluenza 1 (PCR) Parainfluenza 2 (PCR) Parainfluenza 3 (PCR) Parainfluenza 4 (PCR) RSV (PCR) Entero/Rhino (PCR) SARS-CoV-2 (PCR)
[2025-05-17] MEDS: DOXYCYCLINE IV 100 MG in SODIUM CHLORIDE 0.9% IV 100 ML IVPB ×2 (10:33→22:40)
[2025-05-17] MEDS: INSULIN ASPART (*BKC) 100 UNITS/ML 15 UNITS SUB-Q ×2 (11:23→16:49)
[2025-05-17] MEDS: PRAMIPEXOLE 1 MG TABLET PO (20:50)
[2025-05-17] MEDS: INSULIN GLARGINE (*BKC) 100 UNITS/ML 60 UNITS SUB-Q (21:01)
[2025-05-18] VITALS (18 sets, daily range): BP systolic 101–148; BP diastolic 52–71; PULSE 80–98; RESP 20–22; TEMP 36.4–37; O2SAT 92–95
[2025-05-18] MEDS: metroNIDAZOLE 500 MG/ISO 100ML 500 MG/100 ML BAG 100 MG IVPB ×2 (03:21→08:32)
[2025-05-18 04:29] LABS: Hematocrit 36.2 % (42.0-52.0); Hemoglobin 11.1 g/dL (14.0-18.0); Immature Granulocyte Percent A 1.4 % (0-0.5); Lymphocytes Absolute Auto 0.63 K/mm3 (0.9-3.2); Mean Corpuscular HGB Conc 30.7 g/dl (32-36); Mean Corpuscular Hemoglobin 27.8 pg (26-34); Mean Corpuscular Volume 90.7 fl (80-100); Nucleated Red Blood Cells Absolute Auto 0.000 K/mm3 (0.0-0.012); Nucleated Red Blood Cells Perc 0.0 % (0.0-0.2); Platelet Count Result 151 k/mm3 (150-375); Red Blood Count 3.99 M/mm3 (4.6-6.20); White Blood Count 10.5 K/mm3 (4.5-10.0)
[2025-05-18 04:46] LABS: Alanine Aminotransferase 17 U/L (6-50); Albumin Level 2.7 g/dL (3.5-5.1); Alkaline Phosphatase 81 U/L (38-126); Anion Gap 4 mmol/L (4-12); Aspartate Amino Transferase 18 U/L (17-59); Bilirubin,Total 0.5 mg/dL (0.2-1.3); Blood Urea Nitrogen 71 mg/dL (9-20); Calcium 8.3 mg/dL (8.4-10.2); Carbon Dioxide 25 mmol/L (22-30); Chloride 104 mmol/L (98-107); Estimated CRCL calculation 41 ml/min; Estimated Glomerular Filt Rate 25; Glucose 245 mg/dL (65-110); Magnesium 2.1 mg/dL (1.6-2.3); Potassium 3.9 mmol/L (3.4-5.0); Sodium 133 mmol/L (137-145); Total Protein 5.7 g/dL (6.3-8.2)
[2025-05-18] MEDS: INSULIN ASPART (*BKC) 100 UNITS/ML SUB-Q ×3 (08:26→17:09)
[2025-05-18] MEDS: INSULIN ASPART (*BKC) 100 UNITS/ML 15 UNITS SUB-Q ×3 (08:27→17:09)
[2025-05-18] MEDS: ATORVASTATIN 40 MG TABLET 80 MG PO (08:31)
[2025-05-18] MEDS: METOPROLOL TARTRATE 12.5 MG TABLET PO (08:31)
[2025-05-18] MEDS: GABAPENTIN 300 MG CAPSULE 600 MG PO ×2 (08:31→20:23)
[2025-05-18] MEDS: PANTOPRAZOLE 40 MG TABLET PO (08:31)
[2025-05-18] MEDS: LORATADINE 10 MG TABLET PO (08:31)
[2025-05-18] MEDS: CYANOCOBALAMIN 1,000 MCG TABLET 1000 MCG PO (08:31)
[2025-05-18] MEDS: CLOPIDOGREL BISULFATE 75 MG TABLET PO (08:31)
[2025-05-18] MEDS: OMEGA 3 POLYUNSAT FATTY ACIDS 1 GM CAP PO ×2 (08:31→20:23)
[2025-05-18] MEDS: ASPIRIN 81 MG ENTERIC TABLET PO (08:31)
[2025-05-18] MEDS: CEFEPIME 2 GM in SODIUM CHLORIDE 0.9% IV 50 ML 100 ML IVPB ×2 (08:32→20:22)
[2025-05-18] MEDS: FLUTICASONE PROPIONATE 0.05% NA SPR 16 GM BTL (*BKC) 1 SPRAY NASAL ×2 (08:32→17:09)
[2025-05-18] MEDS: DICLOFENAC SODIUM 1% 100 GM GEL (*BKC) 1 APPLIC TOPICAL ×4 (08:32→20:26)
--- NOTE | 2025-05-18 09:32 | P.PNPL_ITS ---
Progress Note: A&P Assessment and Plan (1) Obesity hypoventilation syndrome: Code(s): E66.2 - Morbid (severe) obesity with alveolar hypoventilation Status: Acute Assessment and Plan: Patient with morbid obesity, BMI 66.0, no evidence of chronic lung disease such as asthma or COPD. He is a never smoker. 05/15/2025 TSH 2.16, free T4 0.97 no evidence of thyroid disease. ABG 09/24/2021 was 7.12/82/ 91 on 2 L nasal cannulae. ABG on 05/15/2025 on 8 L nasal cannula 7.. Patient has been treated at home with BiPAP no rate, pressures 22/16 with 4 L bleed in. Patient has obesity hypoventilation syndrome with chronic hypercarbic respiratory failure and would benefit from noninvasive ventilation to prevent further deterioration and subsequent hospitalizations. Patient has failed BiPAP rate 16 with pressures 22/16 and 36% FIO2 with ABG 7.. In addition his recent download shows an AHI of 20.7 on BiPAP. I have initiated noninvasive ventilation with the AVAPS mode. Most recent download: Download 12/25/2023 through 03/23/2020 for through [employer]. Patient is on BiPAP spontaneous rate, pressures 22/16. Usage days greater than or equal to 4 hours is 88%. Average usage on days used is 5 hours and 49 minutes. AHI 18.2, apnea index 17.9, hypopnea index 0.3. Median leak 29.1, 95th percentile leak 62.4, maximal leak 98.5. Central apnea index 2.1. Median tidal volume 317, median respiratory rate 13. Median minute ventilation 4.8. I interpret this download as adequate compliance, high AHI, high leak, low tidal volume, low minute ventilation. Patient then had an emesis episode with the mask on and was taken off BiPAP with a blood gas on 8 L 7.. He improved and was placed back on BiPAP rate of 16, pressures 22/16 and 36% FiO2 and after 3 hours his blood gas was 7.20/70/84. When I enter the room the patient had a high leak and said the mask and machine were uncomfortable. Switched him to a noninvasive ventilator mode with the AVAPS mode and adjusted the settings to come for resulting in a rate of 20, tidal volume 550, EPAP 10, minimal inspiratory pressure 11, maximal inspiratory pressure 25, inspiratory time 1.0, rise of 5 which is the slowest and 40% FiO2. Patient said this was comfortable. 05/15/25: Plan: Patient is awake and communicative. He does doze off but says he is just tired and taking a nap. I will check an ABG after 1 hour to reassess his hypercarbic respiratory failure. Patient's ABG deteriorated after he had a vomiting episode and he may have aspirated. Currently on vancomycin, cefepime both started 05/14/2025. Flagyl and doxycycline started 05/15/2025. I will send respiratory pathogen panel, urine for Legionella, urine for pneumococcal, serum for me mycoplasma IgM. He has no history of COPD, he is a never smoker, no history of asthma. He was given Solu-Medrol 60 mg IV x1 and I do not see a need to continue this medicine. He is empirically placed on DuoNebs q.6 hours and will continue this for the time being. Patient has peripheral edema and agree with as aggressive diuresis as tolerated by his cardiac and renal systems. Currently the patient is on Bumex 2 mg IV b.i.d.. He is positive 1 L since admission. His weight today is 198 lb. Will attempt to obtain a more recent download From patient's [employer] company, [employer] [facility], to assess patient's compliance. Later in day I obtained download from [email or web address] 02/13/2025 through 05/13/2025. Patient is on BiPAP spontaneous rate, pressures 22/16. Usage days greater than or equal to 4 hours is 86%. Average usage on days used is 5 hours and 34 minutes. AHI 20.7. Apnea index 20.6, hypopnea index 0.1. Central apnea index 1.0. Median leak 53.0. Ninety-fifth percentile leak 92.8. Maximum leak 114.6. I interpret this download as adequate compliance, high AHI, and high leak. Later in the day patient had an echocardiogram which is a technically difficult study. LVEF was 30-35% with diastolic dysfunction. Normal right ventricular size and function, normal right atrial size, no tricuspid regurg, normal aortic valve with no aortic stenosis or aortic regurgitation. 05/16/2025: When I enter the room the patient was on noninvasive ventilation with the AVAPS mode and says that the air was going in too fast and I decreased his inspiratory time from 1.0 to 1.2. He said this was improved. He said this machine felt like his home machine. He told me he was ready to come off the machine. I placed him on 5 L nasal cannula and then decreased him to 3 L nasal cannula saturations 93%. The patient was awake stating he was thirsty and stating he was breathing normal with no cough, phlegm or hemoptysis. He denied fever, chills, rigors. He has been afebrile for 32 hours. White blood cell count 21.0, creatinine 3.18, BUN 67. Yesterday he was -410 mL and cumulative he is positive 440 since admission. His weight is 197 kg. Chest x-ray today shows small lung volumes, cardiomegaly, bibasilar interstitial alveolar infiltrates with no change since 05/15/2025. Patient wore the hospital noninvasive ventilation with the AVAPS mode settings as above with a blood gas of 7.26/57/95. Plan: Mental status has returned to baseline and patient states he is breathing at his baseline. ABG on maximal rate of 20 and tidal volume 550 remains with acute on chronic respiratory acidosis, patient is also in renal failure with creatinine of 3.18 and a serum bicarb of 28. I will continue current AVAPS settings and perform overnight oximetry on 36% FiO2 and an ABG prior to removal in the morning. Patient is positive 440 mL since admission but his creatinine now his increas ed to 3.18 and I have placed his diuretics on hold. Currently he is on vancomycin and cefepime since 05/14/2025 and doxycycline and Flagyl since 05/15/2025. MRSA swab reordered. Respiratory pathogen panel, urine Legionella, urine pneumococcal and serum mycoplasma IgM pending. 05/17/2025: Patient states he is feeling back to his baseline. Says his breathing is normal with no cough, phlegm or hemoptysis. When I enter the room he is on 4 L nasal cannula with saturations 95%. I decreased him to 1 L with saturations 93%. patient is afebrile. White blood cell count 17.9, creatinine 2.98, BUN 76, serum bicarb 26. Respiratory pathogen panel returned positive for rhino virus. Urine with E coli. Patient wore the hospital noninvasive ventilator with the AVAPS mode of 20, tidal volume 550, EPAP 10, minimal inspiratory pressure 11, maximal inspiratory pressure 25, inspiratory time 1.2, rise of 5 which is the slowest and 36% FiO2. patient said he slept well with these settings and that he felt like he was getting more air than when he was on the BiPAP. Patient had an ABG prior to removal of 7.. Patient had an overnight oximetry on these settings with recording duration of 1 hour and 20 minutes, average saturation 95%, low saturation 92%. Time with saturation less than or equal to 88% was 0 minutes. Oxygen desaturation index 1.3. Plan: Mental status has returned to baseline and patient states he is breathing normal. He did state that he developed sinus congestion prior to this hospitalization which may be consistent with rhino virus infection. ABG on maximal rate of 20 and tidal volume 550 on AVAPS improved And will continue these settings. Oxygenation adequate on 36% FiO2. I will initiate the process for home noninvasive ventilator with the AVAPS mode through [employer]. Patient is positive 1000 mL since admission And developed acute kidney injury with a creatinine of 3.18 On 05/16/2025. on 05/17/2025 Creatinine is 2.98. diuretics on hold. Currently was on vancomycin (05/14/25 through 05/16/25 or longer with DAWNA, MRSA negative) and cefepime since 05/14/2025 and doxycycline and Flagyl since 05/15. Will continue cefepime, day 3. Doxycycline and Flagyl, day 2. Urine Legionella, urine pneumococcal and serum mycoplasma IgM pending. Discussed results of echocardiogram and hospitalists will review with Cardiology. 05/18/2025: Patient wore the hospital noninvasive ventilator overnight with the AVAPS mode and 36% FiO2 and said he slept well, feels refreshed and this machine is working better than his home BiPAP machine. Overall he tells me he is breathing normal, denies cough, phlegm or hemoptysis. When I enter the room is on 3 L nasal cannula saturations 92%. White blood cell count 10.5, creatinine 2.50, BUN 71. Yesterday he was positive 1.3 L, currently he is positive 2.2 L since admission. His weight today is 201 kg. I have completed an order form for home noninvasive ventilator with the IVAPS mode through [employer]. Settings rate of 20, tidal volume 550, be minimum EPAP 5, maximum EPAP 20, minimum pressure support 6, maximum pressure support 25 and 4 L bleed in. Plan: Current noninvasive ventilator with the AVAPS mode has improved his hypercarbic respiratory failure and 4 L bleed in oxygen provides adequate oxygenation. Will continue current settings while he is in the hospital. We have initiated the process for home noninvasive ventilator with the IVAPS mode through his [employer]. He has Medicare [facility] insurance and will wait for their approval. If he is ready to be discharged this can be set up as an outpatient and he would wear his home BiPAP no rate pressures 22/16 and 4 L bleed in pending set up of the noninvasive ventilator. Patient states he is breathing normally. He is afebrile and his leukocytosis is improving. Remains on cefepime since 05/14/2025 and doxycycline since 01/2025. Will complete 7 days of cefepime, 5 days of doxycycline. Will discontinue Flagyl today (05/15/25 through 05/18/25). S/P vancomycin (05/14/25 through 05/16/25 or longer with DAWNA, MRSA negative). Respiratory pathogen panel positive for rhino virus, mycoplasma pneumonia IgM negative and Urine Legionella, urine pneumococcal pending. Discussed with Dr. Gunn. Will follow with you. Subjective Date/time seen: 05/18/25 09:32 Interval history: 05/15/2025: This is a new pulmonary consult for acute respiratory failure. 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 Regarding patient's coronary artery disease he had a PTCA of his LAD and RCA in 2009. Patient had a TAVR in March of 2020. Patient saw his head esthetician Dr. Chappell on 04/13/2025 it said that he was stable with no problems from his coronary artery disease and TAVR perspective, the note said he has obstructive sleep apnea but office CPAP no medication changes were made. Regarding his follicular lymphoma stage I diagnosed in the groin on 01/25 with the ultrasounded gaudencio I did a biopsy completed chemotherapy and immuno therapy on . Saw his oncologist on 12/01/2024 with no evidence of recurrence. Followed in the Pulmonary Clinic in last seen on 03/28/2024 for obstructive sleep apnea on BiPAP and chronic respiratory failure related to obesity hypoventilation. States he is compliant with BiPAP 22/16 and 4 L bleed in. He was sleeping well and had no concerns. BiPAP was working fine. Nocturia couple times. He complained of a dry cough and was prescribed Claritin and Flonase. Very severe obstructive sleep apnea evidenced by overall AHI 106.6 on a sleep study in October 2021. This was followed by a BiPAP titration study recommending [id number] with 2L/min O2 bleed in October 2021. Download 12/25/2023 through 03/23/2020 for through [employer]. Patient is on BiPAP spontaneous rate, pressures 22/16. Usage days greater than or equal to 4 hours is 88%. Average usage on days used is 5 hours and 49 minutes. AHI 18.2, apnea index 17.9, hypopnea index 0.3. Median leak 29.1, 95th percentile leak 62.4, maximal leak 98.5. Central apnea index 2.1. Median tidal volume 317, median respiratory rate 13. Median minute ventilation 4.8. I interpret this download as adequate compliance, high AHI, high leak, low tidal volume, low minute ventilation. Recommend follow-up 6 months. 05/14/2025: Patient brought to the emergency room for altered mental status and lethargy. History obtained from the family. In the emergency department he was lethargic with a blood pressure 119/59, heart rate 113, temperature 100.2?, room air saturations 93%. He is placed on 2.5 L and his saturations were 93%. White blood cell count 90 2 minutes 18.4, creatinine 2.13, BUN 44, serum bicarb 27, BNP 1120, COVID, influenza, RSV RT PCR assay negative, UA was consistent with a UTI. Patient had a CT scan of abdomen and pelvis which showed atelectasis in the bases but no pleural effusions, focal consolidations or interstitial lung disease. patient given IV fluids and admitted to the hospital with a urinary tract infection. He was more awake and communicative when talking to the hospitalist who admitted him. Patient was placed on his BiPAP settings of 22/16 and 4 L bleed in and had an ABG of 7.37/42/74. 05/15/25: About 5 hours later the patient vomited with his mask on, and was taken off BiPAP and placed on 8 L nasal cannula the blood gas of 7.24/65/84. The patient was then placed on Airvo 40 L, 40% with blood gas of 7.21/70/72. Patient was then placed back on his BiPAP 22/16 with 36% FiO2 and after 3 hours his blood gas was 7.20/70/84. When air new entered the room the patient was awake, he knew his name, show me 2 fingers and wiggled his toes. He denied being in pain and said he had no infectious complaints prior to coming to the hospital. He denied fever, chills, phlegm production or hemoptysis. He states he wears a BiPAP machine at night but does not know his DME company. Says he uses 4 L at night bleed in. The patient was on BiPAP rate of 16 breathing 20, pressures 22/16 with a tidal volume of 531 and minute ventilation of 8.7. His leak was 107 and his saturations were 92. The patient said this machine was not as comfortable as his home machine and I switched him to a noninvasive ventilator mode with the AVAPS mode and adjusted the settings to come for resulting in a rate of 20, tidal volume 550, EPAP 10, minimal inspiratory pressure 11, maximal inspiratory pressure 25, inspiratory time 1.0, rise of 5 which is the slowest and 40% FiO2. Patient said this was comfortable. Later in day I obtained download from [email or web address] 02/13/2025 through 05/13/2025. Patient is on BiPAP spontaneous rate, pressures 22/16. Usage days greater than or equal to 4 hours is 86%. Average usage on days used is 5 hours and 34 minutes. AHI 20.7. Apnea index 20.6, hypopnea index 0.1. Central apnea index 1.0. Median leak 53.0. Ninety-fifth percentile leak 92.8. Maximum leak 114.6. I interpret this download as adequate compliance, high AHI, and high leak. Later in the day patient had an echocardiogram which is a technically difficult study. LVEF was 30-35% with diastolic dysfunction. Normal right ventricular size and function, normal right atrial size, no tricuspid regurg, normal aortic valve with no aortic stenosis or aortic regurgitation. 05/16/2025: When I enter the room the patient was on noninvasive ventilation with the AVAPS mode and says that the air was going in to fast and I decreased his inspiratory time from 1.0-1.2. He said this was improved. He said this machine felt like his home machine. He told me he was ready to come off the machine. I placed him on 5 L nasal cannula and then decreased him to 3 L nasal cannula saturations 93%. The patient was awake stating he was thirsty and stating he was breathing normal with no cough, phlegm or hemoptysis. He denied fever, chills, rigors. He has been afebrile for 32 hours. White blood cell count 21.0, creatinine 3.18, BUN 67. Yesterday he was -410 mL and cumulative he is positive 440 since admission. His weight is 197 kg. Chest x-ray today shows small lung volumes, cardiomegaly, bibasilar interstitial alveolar infiltrates with no change since 05/15/2025. Patient wore the [facility] noninvasive ventilation with the AVAPS mode settings as above with a blood gas of 7.26/57/95. 05/17/2025: Patient states he is feeling back to his baseline. Says his breathing is normal with no cough, phlegm or hemoptysis. When I enter the room he is on 4 L nasal cannula with saturations 95%. I decreased him to 1 L with saturations 93%. patient is afebrile. White blood cell count 17.9, creatinine 2.98, BUN 76, serum bicarb 26. Respiratory pathogen panel returned positive for rhino virus. Urine with E coli. Patient wore the hospital noninvasive ventilator with the AVAPS mode of 20, tidal volume 550, EPAP 10, minimal inspiratory pressure 11, maximal inspiratory pressure 25, inspiratory time 1.2, rise of 5 which is the slowest and 36% FiO2. patient said he slept well with these settings and that he felt like he was getting more air than when he was on the BiPAP. Patient had an ABG prior to removal of 7.. Patient had an overnight oximetry on these settings with recording duration of 1 hour and 20 minutes, average saturation 95%, low saturation 92%. Time with saturation less than or equal to 88% was 0 minutes. Oxygen desaturation index 1.3. 05/18/2025: Patient wore the hospital noninvasive ventilator overnight with the AVAPS mode and 36% FiO2 and said he slept well, feels refreshed and this machine is working better than his home BiPAP machine. Overall he tells me he is breathing normal, denies cough, phlegm or hemoptysis. When I enter the room is on 3 L nasal cannula saturations 92%. White blood cell count 10.5, creatinine 2.50, BUN 71. Yesterday he was positive 1.3 L, currently he is positive 2.2 L since admission. His weight today is 201 kg. I have completed an order form for home noninvasive ventilator with the [employer] mode through [employer]. Settings rate of 20, tidal volume 550, be minimum EPAP 5, maximum EPAP 20, minimum pressure support 6, maximum pressure support 25 and 4 L bleed in. DATA 05/14/25: CT ABDOMEN AND PELVIS WITHOUT CONTRAST Clinical History: septic; UTI, repeated with tighter straps and repositioning Comparison: 09/24/2021 Technique: Unenhanced axial images lung bases to symphysis pubis Coronal, sagittal reformats CT images acquired with automatic exposure control for dose reduction DLP: 3856 mGy-cm Findings: Without intravenous contrast, sensitivity for detecting visceral parenchymal abnormalities decreased. Portions of left hemiabdomen excluded from images Lung bases: Dependent atelectasis. Visualized heart and pericardium: Coronary artery calcification. Liver: Enlarged. Steatosis. Gallbladder: Removed. Spleen: Unremarkable. Pancreas: Atrophy. Adrenal glands: Unremarkable. Kidneys: Right kidney- No hydronephrosis. No renal stones. Left kidney- No hydronephrosis. No renal stones. Distal esophagus/stomach: Unremarkable. Small bowel loops: Normal caliber and wall thickness. Colon: Diverticula. Normal caliber and wall thickness. Appendix not seen. Nodes: Prominent partially calcified nodes right groin. Peritoneum: No ascites. No free intraperitoneal air. Urinary bladder: Mild wall thickening but under distended. Prostate: Unremarkable. Bones: No acute bony abnormality. Soft tissues: Midline abdominal wall hernia mesh. Unopacified abdominal aorta: No aneurysmal dilatation. IMPRESSION: 1. No acute findings. 03/05/22 - Overnight oximetry on BiPAP 22/16 with 3L/min O2 - Time spent at or below 88% saturation was 33 min. He was advised to increase liter flow to 4L/min. 02/11/22 - Overnight oximetry on BiPAP 22/16 with 2L/min bleed in - time spent at or below 88% saturation was 54 min. 11/06/21 - BiPAP titration - BiPAP [id number] with 2L/min O2 bleed in was recommended. 10/29/21 - Split PSG - Very severe obstructive sleep apnea, overall AHI 106.6 events per hour. 09/24/2021: Echo Summary 1. Technically difficult study with limited views. Regional wall motion assessment limited despite definity contrast enhancement due to poor endomyocardial border definition. 2. Left ventricular chamber dimension is normal. 3. Left ventricular systolic function is normal, estimated at 55-60%. 4. The left ventricular diastolic function is grade I diastolic dysfunction. 5. There is no increased left ventricular wall thickness. 6. There is mild aortic valve stenosis with a peak velocity of 307.88 cm/s, mean gradient of 18 mmHg, and aortic valve area of 1.7cm2. 7. The aortic valve is not well visualized. Left Ventricle Technically difficult study with limited views. Regional wall motion assessment limited despite definity contrast enhancement due to poor endomyocardial border definition. Left ventricular chamber dimension is normal. Left ventricular systolic function is normal, estimated at 55-60%. There is no increased left ventricular wall thickness. The left ventricular diastolic function is grade I diastolic dysfunction. Right Ventricle Right ventricular chamber dimension is normal. Right ventricular systolic function is normal. Left Atria Left atrial chamber dimension is normal. Right Atria Right atrial chamber dimension is normal. RVSP equals 18 01/17/2021: EXAMINATION: CT chest abdomen pelvis w con EXAM DATE: 01/17/2021 10:08 INDICATION: Follicular lymphoma, inguinal region. TECHNIQUE: Spiral CT of the chest, abdomen and pelvis was performed following intravenous injection of 100 mL Omnipaque 350. Axial, coronal and sagittal images chest, abdomen and pelvis were reviewed. Coronal maximum intensity pixel images of chest reviewed. The dose-length product (DLP) for this examination was 1990.84 mGy-cm. The exposure was tailored according to patient size (auto mA exposure control), and iterative reconstruction (ASIR) was used as additional dose reduction technique. Comparison is made to prior examination from chest CT 07/21/2020, chest abdomen pelvis CT 01/18/2020. FINDINGS: CHEST: Previously seen bibasilar pneumonia has resolved. There are some residual linear opacities consistent with scarring or atelectasis. Some scattered left apical granulomata. Aortic stent or valve, new compared to prior study. There are no pleural or pericardial effusions. Tracheobronchial tree is patent. There is no mediastinal, hilar or axillary lymphadenopathy. There is no pneumothorax. Heart normal in size. Probable left coronary arterial stent. Right-sided portacatheter. ABDOMEN PELVIS: There is right inguinal lymph node with some coarse ca lcifications measuring 5.2 x 2.8 cm (previously about 6 x 3 cm), mild interval decrease in size compared to previous study. This is consistent with treated lymphoma. No other pathologically enlarged lymph nodes identified. Anterior abdominal wall mesh. The liver, spleen, adrenal glands and pancreas are unremarkable. Gallbladder is unremarkable. No biliary obstruction. Portal and splenic veins are patent. Kidneys enhance symmetrically. There is no hydronephrosis. The prostate is unremarkable. The bladder is unremarkable. The appendix is not positively visualized. There is no pericecal inflammatory change to suggest appendicitis. The stomach and small bowel are unremarkable. There is expected amount of colonic stool. No free intraperitoneal gas. There are no osteoblastic or osteolytic lesions identified. Moderate to severe lumbar disc disease. IMPRESSION: 1. Enlarged right inguinal lymph node, but with mild interval decrease in size. Treated lymphoma. 2. Chronic and surgical changes. Review of Systems Constitutional: Constitutional: Reports no additional constitutional complaints Eyes: Eyes: Reports no additional eye complaints ENT: Reports system reviewed and no additional complaints, except as documented Cardiovascular: Cardiovascular: Reports no additional cardiovascular complaints Respiratory: Respiratory: Reports no additional respiratory complaints Gastrointestinal: Gastrointestinal: Reports no additional gastrointestinal complaints Musculoskeletal: Musculoskeletal: Reports no additional musculoskeletal complaints Neurologic: Reports system reviewed and no additional complaints, except as documented Psychiatric: Psychiatric: Reports no additional psychiatric complaints Endocrine: Endocrine: Reports no additional endocrine complaints Hematologic/Lymphatic: Hematologic/Lymphatic: Reports no additional hematologic/lymphatic complaints Allergic/Immunologic: Allergic/Immunologic: Reports no additional allergic/immunologic complaints Exam Const: General: cooperative, comfortable and no acute distress Orientation/consciousness: oriented to person, oriented to place and oriented to time Other: No acute distress HENMT: Head: normal to inspection Ears: hearing grossly normal bilaterally Eyes: General: appearance normal, both eyes and all related structures Neck: Neck: normal visual inspection Chest: Chest palpation & inspection: normal inspection of the chest Resp: Effort & Inspection: normal respiratory effort and able to speak in complete sentences Auscultation: no crackles, no rales, no rhonchi, no wheezes and diminished lung sounds Other: Morbidly obese Cardio: Other: regular rate GI: Inspection: normal to inspection Other: no tenderness to deep palpation. Morbidly obese. Skin: General skin exam: normal color Neuro: General: oriented to person, oriented to place and oriented to time Extrem: General: normal to inspection and edema Other: improved edema Psych: Appearance: grossly normal Objective Data Vital Signs Vital Signs: Vital Signs - 24 hr 05/17/25 09:52 05/17/25 11:29 05/17/25 12:00 Temperature Pulse Rate 98 97 Respiratory Rate Blood Pressure Pulse Oximetry 90 Pulse Oximetry [With Activity During Therapy Session] Oxygen Delivery Nasal Cannula Oxygen Flow Rate 3 Fraction of Inspired Oxygen 05/17/25 12:00 05/17/25 12:34 05/17/25 12:48 Temperature 36.6 C Pulse Rate 96 Respiratory Rate 24 H Blood Pressure 131/60 Pulse Oximetry 92 Pulse Oximetry [With Activity During Therapy Session] 88 L Oxygen Delivery High Flow Nasal Cannula High Flow Therapy with Na Oxygen Flow Rate 6 6 Fraction of Inspired Oxygen 05/17/25 13:57 05/17/25 15:14 05/17/25 16:00 Temperature Pulse Rate 84 93 95 Respiratory Rate 20 Blood Pressure Pulse Oximetry 96 Pulse Oximetry [With Activity During Therapy Session] Oxygen Delivery Nasal Cannula Oxygen Flow Rate 5 Fraction of Inspired Oxygen 05/17/25 16:00 05/17/25 16:00 05/17/25 18:00 Temperature 36.6 C Pulse Rate 94 91 Respiratory Rate 24 H Blood Pressure 131/81 Pulse Oximetry 96 97 Pulse Oximetry [With Activity During Therapy Session] Oxygen Delivery Nasal Cannula Oxygen Flow Rate 5 Fraction of Inspired Oxygen 05/17/25 20:00 05/17/25 20:00 05/17/25 20:04 Temperature 36.7 C Pulse Rate 102 H 94 Respiratory Rate 21 H Blood Pressure 124/63 Pulse Oximetry 94 93 Pulse Oximetry [With Activity During Therapy Session] Oxygen Delivery Nasal Cannula Oxygen Flow Rate 3 Fraction of Inspired Oxygen 05/17/25 20:50 05/17/25 21:35 05/17/25 22:00 Temperature Pulse Rate 97 90 84 Respiratory Rate 25 H Blood Pressure Pulse Oximetry 96 Pulse Oximetry [With Activity During Therapy Session] Oxygen Delivery BiPAP Oxygen Flow Rate Fraction of Inspired Oxygen 05/17/25 23:31 05/18/25 00:00 05/18/25 00:00 Temperature 36.7 C Pulse Rate 92 82 Respiratory Rate 20 Blood Pressure 130/67 Pulse Oximetry 93 95 Pulse Oximetry [With Activity During Therapy Session] Oxygen Delivery BiPAP Oxygen Flow Rate Fraction of Inspired Oxygen 40 05/18/25 02:00 05/18/25 02:06 05/18/25 04:00 Temperature Pulse Rate 81 85 Respiratory Rate 20 Blood Pressure Pulse Oximetry 95 95 Pulse Oximetry [With Activity During Therapy Session] Oxygen Delivery BiPAP BiPAP Oxygen Flow Rate Fraction of Inspired Oxygen 40 05/18/25 04:00 05/18/25 04:53 05/18/25 06:00 Temperature 36.8 C Pulse Rate 81 80 89 Respiratory Rate 21 H Blood Pressure 101/57 L Pulse Oximetry 92 Pulse Oximetry [With Activity During Therapy Session] Oxygen Delivery Oxygen Flow Rate Fraction of Inspired Oxygen 05/18/25 07:35 05/18/25 07:46 05/18/25 08:00 Temperature 36.5 C Pulse Rate 90 Respiratory Rate 20 Blood Pressure 137/52 L Pulse Oximetry 93 92 93 Pulse Oximetry [With Activity During Therapy Session] Oxygen Delivery Nasal Cannula Nasal Cannula Oxygen Flow Rate 3 3 Fraction of Inspired Oxygen 05/18/25 08:00 05/18/25 08:31 Temperature Pulse Rate 96 92 Respiratory Rate Blood Pressure Pulse Oximetry Pulse Oximetry [With Activity During Therapy Session] Oxygen Delivery Oxygen Flow Rate Fraction of Inspired Oxygen Intake/Output Intake/Output: Intake & Output 05/15/25 05/16/25 05/17/25 05/18/25 23:59 23:59 23:59 23:59 Intake Total 840 1920 1940 1510 Output Total 1250 1700 550 800 Balance -633 543 6315 710 Meds/Results Medications: Active Medications Generic Name Dose Route Start Last Admin Trade Name Freq PRN Reason Stop Dose Admin Acetaminophen 1,000 mg 05/14/25 23:34 05/14/25 23:56 Acetaminophen 500 Mg Tablet PO 1,000 mg Q6H PRN Administration Mild Pain (1-3) or Fever Aspirin 81 mg 05/15/25 09:00 05/18/25 08:31 Aspirin 81 Mg Enteric Tablet PO 81 mg DAILY [facility] Administration Atorvastatin Calcium 80 mg 05/15/25 09:00 05/18/25 08:31 Atorvastatin 40 Mg Tablet PO 80 mg DAILY [facility] Administration Bumetanide 2 mg 05/15/25 09:30 05/15/25 17:52 Bumetanide Inj 2.5 Mg/10 Ml Vial IV PUSH 2 mg On Hold: 05/16/25 07:16 BID [facility] Administration Clopidogrel Bisulfate 75 mg 05/15/25 09:00 05/18/25 08:31 Clopidogrel Bisulfate 75 Mg Tablet PO 75 mg QAM [facility] Administration Cyanocobalamin 1,000 mcg 05/15/25 09:00 05/18/25 08:31 Cyanocobalamin 1,000 Mcg Tablet PO 1,000 mcg QAM [facility] Administration Dextrose 12.5 gm 05/14/25 12:48 Dextrose 50% 25 Gm/50 Ml Syringe IV PUSH PRN PRN Hypoglycemia Protocol Diclofenac Sodium 1 applic 05/14/25 21:00 05/18/25 08:32 Diclofenac Sodium 1% 100 Gm Gel (*Bkc) TOPICAL 1 applic QID [facility] Administration Diphenoxylate HCl/Atropine 1 tablet 05/14/25 19:10 Diphenoxylate/Atropine (*Crx) 2.5 Mg Tablet PO QID PRN Diarrhea Fish Oil 1 gm 05/14/25 21:00 05/18/25 08:31 [place] 3 Polyunsat Fatty Acids 1 Gm Cap PO 1 gm Q12HR [facility] Administration Fluoxetine HCl 20 mg 05/14/25 21:00 05/17/25 20:50 Fluoxetine Hcl 20 Mg Capsule PO 20 mg HS [facility] Administration Fluticasone Propionate 1 spray 05/15/25 09:00 05/18/25 08:32 Fluticasone Propionate 0.05% Na Spr 16 Gm Btl (*Bkc) NASAL 1 spray BID [facility] Administration Gabapentin 600 mg 05/14/25 21:00 05/18/25 08:31 Gabapentin 300 Mg Capsule PO 600 mg Q12HR [facility] Administration Glucagon 1 mg 05/14/25 12:48 Glucagon For Inj 1 Mg Vial IM PRN PRN Hypoglycemia Protocol Glucose 15 gm 05/14/25 12:48 Glucose Oral Gel 15 Gm Of Glucse In 37.5 Gm Tube PO PRN PRN Hypoglycemia Protocol Heparin Sodium (Porcine) 5,000 units 05/16/25 14:00 05/18/25 05:40 Heparin Sodium 5,000 Units/Ml Vial SUB-Q 5,000 units Q8HR [facility] Administration Cefepime HCl 2 gm/ Sodium 50 mls @ 100 mls/hr 05/14/25 21:00 05/18/25 08:32 Chloride IVPB 100 mls/hr Q12HR [facility] Administration Dextrose 1,000 mls @ 100 mls/hr 05/14/25 12:48 Dextrose 5% 1,000 Ml IVPB PRN PRN Hypoglycemia Protocol Metronidazole 500 mg in 100 mls @ 100 mls/hr 05/15/25 09:00 05/18/25 08:32 Flagyl 500 Mg/Iso Soln 100 Ml IVPB 100 mls/hr Q6H [facility] Administration Doxycycline Hyclate 100 mg/ 100 mls @ 100 mls/hr 05/15/25 11:00 05/17/25 23:40 Sodium Chloride IVPB Infused Q12H [facility] Infusion Insulin Aspart 4 - 8 units 05/14/25 17:00 05/18/25 08:26 Insulin Aspart (*Bkc) 100 Units/Ml SUB-Q 4 units TIDWM [facility] Administration Protocol Insulin Aspart 15 units 05/17/25 12:00 05/18/25 08:27 Insulin Aspart (*Bkc) 100 Units/Ml SUB-Q 15 units TIDWM [facility] Administration Insulin Glargine 60 units 05/14/25 21:00 05/17/25 21:01 Insulin Glargine (*Bkc) 100 Units/Ml SUB-Q 60 units HS [facility] Administration Loratadine 10 mg 05/15/25 09:00 05/18/25 08:31 Loratadine 10 Mg Tablet PO 10 mg DAILY [facility] Administration Metoprolol Tartrate 12.5 mg 05/14/25 21:00 05/18/25 08:31 Metoprolol Tartrate 12.5 Mg Tablet PO 12.5 mg Q12HR [facility] Administration Miscellaneous Information 0 each 05/15/25 00:01 05/18/25 02:17 Dapagliflozin No Sub Generic? Ok To Sub With Jardiance? XX 06/14/25 00:00 Not Given CLARIFY [facility] Non-Formulary Medication 5 mg 05/15/25 09:00 Dapagliflozin Propanediol [Farxiga] PO 06/14/25 08:59 DAILY [facility] Pantoprazole Sodium 40 mg 05/15/25 09:00 05/18/25 08:31 Pantoprazole 40 Mg Tablet PO 40 mg QAM [facility] Administration Pramipexole Dihydrochloride 1 mg 05/14/25 21:00 05/17/25 20:50 Pramipexole 1 Mg Tablet PO 1 mg QHS [facility] Administration Quetiapine Fumarate 50 mg 05/14/25 21:00 05/17/25 20:50 Quetiapine Fumarate 25 Mg Tablet PO 50 mg HS [facility] Administration Tizanidine HCl 4 mg 05/14/25 19:10 Tizanidine Hcl 4 Mg Tablet PO QHS PRN Muscle Spasticity Trazodone HCl 50 mg 05/14/25 21:00 05/17/25 20:50 Trazodone Hcl 50 Mg Tablet PO 50 mg HS [facility] Administration Radiology Results: ITS Impressions Abdomen/Pelvis CT 05/14/25 11:30 IMPRESSION: 1. No acute findings. Chest X-Ray 05/16/25 09:25 IMPRESSION: 1. Persistent bibasilar atelectasis and/or airspace disease. Renal Ultrasound 05/16/25 15:06 IMPRESSION: 1. Normal kidneys without hydronephrosis. Labs Labs: Laboratory Results - last 24 hr 05/16/25 05/17/25 05/17/25 04:29 11:05 16:06 WBC RBC Hgb Hct MCV MCH MCHC RDW Plt Count MPV Immature Gran % (Auto) Neut % (Auto) Lymph % (Auto) Centre % (Auto) Eos % (Auto) Baso % (Auto) Lymph # (Auto) Centre # (Auto) Eos # (Auto) Baso # (Auto) Abs Immat Gran (auto) Absolute Neuts (auto) Absolute Nucleated RBC Nucleated RBC % Sodium Potassium Chloride Carbon Dioxide Anion Gap BUN Creatinine Estim Creat Clear Calc Estimated GFR Glucose POC Capillary Glucose 360 H 320 H Calcium Phosphorus Magnesium Total Bilirubin AST ALT Alkaline Phosphatase Total Protein Albumin M.pneumoniae IgM Titer <770 05/17/25 05/18/25 05/18/25 20:15 03:51 07:14 WBC 10.5 H RBC 3.99 L Hgb 11.1 L Hct 36.2 L MCV 90.7 MCH 27.8 MCHC 30.7 L RDW 17.4 H Plt Count 151 MPV 11.1 H Immature Gran % (Auto) 1.4 H Neut % (Auto) 85.1 H Lymph % (Auto) 6.0 L Centre % (Auto) 5.4 Eos % (Auto) 1.8 Baso % (Auto) 0.3 Lymph # (Auto) 0.63 L Centre # (Auto) 0.6 Eos # (Auto) 0.2 Baso # (Auto) 0.0 Abs Immat Gran (auto) 0.15 H Absolute Neuts (auto) 8.9 H Absolute Nucleated RBC 0.000 Nucleated RBC % 0.0 Sodium 133 L Potassium 3.9 Chloride 104 Carbon Dioxide 25 Anion Gap 4 BUN 71 H Creatinine 2.50 H Estim Creat Clear Calc 41 Estimated GFR 25 L Glucose 245 H POC Capillary Glucose 248 H 231 H Calcium 8.3 L Phosphorus 2.9 Magnesium 2.1 Total Bilirubin 0.5 AST 18 ALT 17 Alkaline Phosphatase 81 Total Protein 5.7 L Albumin 2.7 L M.pneumoniae IgM Titer
[2025-05-18] MEDS: DOXYCYCLINE HYCLATE 100 MG TABLET PO ×2 (10:28→20:23)
--- NOTE | 2025-05-18 10:59 | PM.PNCARD ---
Progress Note: A&P Assessment and Plan (1) Acute on chronic respiratory failure with hypoxia and hypercapnia: Code(s): J96.21 - Acute and chronic respiratory failure with hypoxia; J96.22 - Acute and chronic respiratory failure with hypercapnia Status: Acute (2) Obesity hypoventilation syndrome: Code(s): E66.2 - Morbid (severe) obesity with alveolar hypoventilation Status: Acute (3) Elevated troponin: Code(s): R79.89 - Other specified abnormal findings of blood chemistry Status: Acute (4) CAD (coronary artery disease) of artery bypass graft: Code(s): I25.810 - Atherosclerosis of coronary artery bypass graft(s) without angina pectoris Status: Acute (5) Hypertension: Code(s): I10 - Essential (primary) hypertension Status: Chronic (6) Sleep apnea: Code(s): G47.30 - Sleep apnea, unspecified Status: Chronic (7) Non-Hodgkin lymphoma: Qualifiers: Non-Hodgkin lymphoma type: follicular Follicular lymphoma type: unspecified follicular type Lymphoma site: inguinal Qualified Code(s): C82.95 - Follicular lymphoma, unspecified, lymph nodes of inguinal region and lower limb Code(s): C85.90 - Non-Hodgkin lymphoma, unspecified, unspecified site Status: Chronic (8) Morbid obesity with BMI of 60.0-69.9, adult: Code(s): E66.01 - Morbid (severe) obesity due to excess calories; Z68.44 - Body mass index [BMI] 60.0-69.9, adult Status: Chronic (9) Type 2 diabetes mellitus with hyperglycemia: Qualifiers: Diabetes mellitus detention insulin use: with rodent exterminator use Qualified Code(s): E11.65 - Type 2 diabetes mellitus with hyperglycemia; 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 Code(s): E11.65 - Type 2 diabetes mellitus with hyperglycemia Status: Chronic (10) Cardiomyopathy: Qualifiers: Cardiomyopathy type: unspecified Qualified Code(s): I42.9 - Cardiomyopathy, unspecified Code(s): I42.9 - Cardiomyopathy, unspecified Status: Acute (11) Acute on chronic renal failure: Qualifiers: Acute renal failure type: unspecified Chronic kidney disease stage: stage 3 (moderate) Qualified Code(s): N17.9 - Acute kidney failure, unspecified; N18.3 - Chronic kidney disease, stage 3 (moderate) Code(s): N17.9 - Acute kidney failure, unspecified; N18.9 - Chronic kidney disease, unspecified Status: Acute Plan Recommendations; 1. Patient with multiple medical problems. Primarily admitted with acute respiratory failure with combination of etiologies including acute on chronic respiratory failure, morbid obesity, abnormal chest x-ray with possible pneumonia and congestive heart failure. History of angioplasty of the RCA and LAD in the past as well as history of to our followed by outpatient by sample maker original. 2. Elevated troponin on admission appears to be flat in trend and does not suggest acute coronary syndrome. 3. Decreased ejection fraction noted. Currently not a candidate for further diagnostic workup including cardiac catheterization as creatinine is 2.98. 4. Continue present conservative medical management. Blood pressure is 137/52 and heart rate is 90-97 per minute. 5. Current medications reviewed. Patient current aspirin 81 mg daily, atorvastatin 80 mg at bedtime, bumetanide 2 mg IV push b.i.d., clopidogrel 75 mg daily, metoprolol tartrate 12.5 mg b.i.d. will change to metoprolol succinate 25 mg b.i.d.. May change to p.o. Bumex in the morning and 2 mg p.o. b.i.d.. Subjective Date/time seen: 05/18/25 10:59 Interval history: Review of HPI: 74-year-old male with previous history of tower and diastolic heart failure presents with increasing shortness of breath and respiratory failure. Workup positive for pneumonia and component of congestive heart failure. Patient is morbidly obese with BMI over 67. Patient has acute on chronic respiratory failure with hypoxia being managed medically. EKG reveals normal sinus rhythm without acute ST changes. Echocardiogram demonstrated reduced ejection fraction compared to 2021 when it was 55-60% now decreased to 35%. Patient not a candidate for invasive workup as creatinine is close to 3.0. Subjective: Patient was examined at bedside. Patient appears to be comfortable. Patient is morbidly obese. Review of Systems Review of Systems: Twelve point review of system was completed. Pertinent positive and negative findings per HPI. Exam Narrative: Patient was examined at the bedside. Patient morbidly obese and BMI is over 65 Head and neck examination is unremarkable. Neck is supple there is no JVD or carotid bruit Lungs are decreased air entry bilaterally. Heart sounds reveal normal S1-S2 no significant murmurs appreciated. Heart sounds are distant. Abdomen is obese without hepatosplenomegaly. Bowel sounds are present Extremities reveals bilateral leg edema. Neurological examination is intact. Objective Data Vital Signs Vital Signs: Vital Signs - 24 hr 05/17/25 11:29 05/17/25 12:00 05/17/25 12:00 Temperature 36.6 C Pulse Rate 97 96 Respiratory Rate 24 H Blood Pressure 131/60 Pulse Oximetry 90 92 Pulse Oximetry [With Activity During Therapy Session] Oxygen Delivery Nasal Cannula Oxygen Flow Rate 3 Fraction of Inspired Oxygen 05/17/25 12:34 05/17/25 12:48 05/17/25 13:57 Temperature Pulse Rate 84 Respiratory Rate Blood Pressure Pulse Oximetry Pulse Oximetry [With Activity During Therapy Session] 88 L Oxygen Delivery High Flow Nasal Cannula High Flow Therapy with Na Oxygen Flow Rate 6 6 Fraction of Inspired Oxygen 05/17/25 15:14 05/17/25 16:00 05/17/25 16:00 Temperature Pulse Rate 93 95 Respiratory Rate 20 Blood Pressure Pulse Oximetry 96 96 Pulse Oximetry [With Activity During Therapy Session] Oxygen Delivery Nasal Cannula Nasal Cannula Oxygen Flow Rate 5 5 Fraction of Inspired Oxygen 05/17/25 16:00 05/17/25 18:00 05/17/25 20:00 Temperature 36.6 C Pulse Rate 94 91 Respiratory Rate 24 H Blood Pressure 131/81 Pulse Oximetry 97 94 Pulse Oximetry [With Activity During Therapy Session] Oxygen Delivery Nasal Cannula Oxygen Flow Rate 3 Fraction of Inspired Oxygen 05/17/25 20:00 05/17/25 20:04 05/17/25 20:50 Temperature 36.7 C Pulse Rate 102 H 94 97 Respiratory Rate 21 H Blood Pressure 124/63 Pulse Oximetry 93 Pulse Oximetry [With Activity During Therapy Session] Oxygen Delivery Oxygen Flow Rate Fraction of Inspired Oxygen 05/17/25 21:35 05/17/25 22:00 05/17/25 23:31 Temperature 36.7 C Pulse Rate 90 84 92 Respiratory Rate 25 H 20 Blood Pressure 130/67 Pulse Oximetry 96 93 Pulse Oximetry [With Activity During Therapy Session] Oxygen Delivery BiPAP Oxygen Flow Rate Fraction of Inspired Oxygen 05/18/25 00:00 05/18/25 00:00 05/18/25 02:00 Temperature Pulse Rate 82 81 Respiratory Rate Blood Pressure Pulse Oximetry 95 Pulse Oximetry [With Activity During Therapy Session] Oxygen Delivery BiPAP Oxygen Flow Rate Fraction of Inspired Oxygen 40 05/18/25 02:06 05/18/25 04:00 05/18/25 04:00 Temperature Pulse Rate 85 81 Respiratory Rate 20 Blood Pressure Pulse Oximetry 95 95 Pulse Oximetry [With Activity During Therapy Session] Oxygen Delivery BiPAP BiPAP Oxygen Flow Rate Fraction of Inspired Oxygen 40 05/18/25 04:53 05/18/25 06:00 05/18/25 07:35 Temperature 36.8 C Pulse Rate 80 89 Respiratory Rate 21 H Blood Pressure 101/57 L Pulse Oximetry 92 93 Pulse Oximetry [With Activity During Therapy Session] Oxygen Delivery Nasal Cannula Oxygen Flow Rate 3 Fraction of Inspired Oxygen 05/18/25 07:46 05/18/25 08:00 05/18/25 08:00 Temperature 36.5 C Pulse Rate 90 96 Respiratory Rate 20 Blood Pressure 137/52 L Pulse Oximetry 92 93 Pulse Oximetry [With Activity During Therapy Session] Oxygen Delivery Nasal Cannula Oxygen Flow Rate 3 Fraction of Inspired Oxygen 05/18/25 08:31 05/18/25 10:00 Temperature Pulse Rate 92 97 Respiratory Rate Blood Pressure Pulse Oximetry Pulse Oximetry [With Activity During Therapy Session] Oxygen Delivery Oxygen Flow Rate Fraction of Inspired Oxygen Intake/Output Intake/Output: Intake & Output 05/15/25 05/16/25 05/17/25 05/18/25 23:59 23:59 23:59 23:59 Intake Total 840 1920 1940 1510 Output Total 1250 1700 550 800 Balance -639 160 7484 710 Meds/Results Medications: Active Medications Generic Name Dose Route Start Last Admin Trade Name Narenq PRN Reason Stop Dose Admin Acetaminophen 1,000 mg 05/14/25 23:34 05/14/25 23:56 Acetaminophen 500 Mg Tablet PO 1,000 mg Q6H PRN Administration Mild Pain (1-3) or Fever Aspirin 81 mg 05/15/25 09:00 05/18/25 08:31 Aspirin 81 Mg Enteric Tablet PO 81 mg DAILY SCHUYLER Administration Atorvastatin Calcium 80 mg 05/15/25 09:00 05/18/25 08:31 Atorvastatin 40 Mg Tablet PO 80 mg DAILY [facility] Administration Bumetanide 2 mg 05/15/25 09:30 05/15/25 17:52 Bumetanide Inj 2.5 Mg/10 Ml Vial IV PUSH 2 mg On Hold: 05/16/25 07:16 BID [facility]ER Administration Clopidogrel Bisulfate 75 mg 05/15/25 09:00 05/18/25 08:31 Clopidogrel Bisulfate 75 Mg Tablet PO 75 mg QAM [facility]ER Administration Cyanocobalamin 1,000 mcg 05/15/25 09:00 05/18/25 08:31 Cyanocobalamin 1,000 Mcg Tablet PO 1,000 mcg QAM [facility]ER Administration Dextrose 12.5 gm 05/14/25 12:48 Dextrose 50% 25 Gm/50 Ml Syringe IV PUSH PRN PRN Hypoglycemia Protocol Diclofenac Sodium 1 applic 05/14/25 21:00 05/18/25 08:32 Diclofenac Sodium 1% 100 Gm Gel (*Bkc) TOPICAL 1 applic QID [facility] Administration Diphenoxylate HCl/Atropine 1 tablet 05/14/25 19:10 Diphenoxylate/Atropine (*Crx) 2.5 Mg Tablet PO QID PRN Diarrhea Doxycycline Hyclate 100 mg 05/18/25 10:00 05/18/25 10:28 Doxycycline Hyclate 100 Mg Tablet PO 05/19/25 21:01 100 mg Q12HR SCHU[facility]ER Administration Fish Oil 1 gm 05/14/25 21:00 05/18/25 08:31 [place] 3 Polyunsat Fatty Acids 1 Gm Cap PO 1 gm Q12HR SCHU[facility]ER Administration Fluoxetine HCl 20 mg 05/14/25 21:00 05/17/25 20:50 Fluoxetine Hcl 20 Mg Capsule PO 20 mg HS SCHU[facility]ER Administration Fluticasone Propionate 1 spray 05/15/25 09:00 05/18/25 08:32 Fluticasone Propionate 0.05% Na Spr 16 Gm Btl (*Bkc) NASAL 1 spray BID [facility]ER Administration Gabapentin 600 mg 05/14/25 21:00 05/18/25 08:31 Gabapentin 300 Mg Capsule PO 600 mg Q12HR [facility]ER Administration Glucagon 1 mg 05/14/25 12:48 Glucagon For Inj 1 Mg Vial IM PRN PRN Hypoglycemia Protocol Glucose 15 gm 05/14/25 12:48 Glucose Oral Gel 15 Gm Of Glucse In 37.5 Gm Tube PO PRN PRN Hypoglycemia Protocol Heparin Sodium (Porcine) 5,000 units 05/16/25 14:00 05/18/25 05:40 Heparin Sodium 5,000 Units/Ml Vial SUB-Q 5,000 units Q8HR [facility]ER Administration Cefepime HCl 2 gm/ Sodium 50 mls @ 100 mls/hr 05/14/25 21:00 05/18/25 08:32 Chloride IVPB 05/20/25 21:29 100 mls/hr Q12HR [facility] Administration Dextrose 1,000 mls @ 100 mls/hr 05/14/25 12:48 Dextrose 5% 1,000 Ml IVPB PRN PRN Hypoglycemia Protocol Insulin Aspart 4 - 8 units 05/14/25 17:00 05/18/25 08:26 Insulin Aspart (*Bkc) 100 Units/Ml SUB-Q 4 units TIDWM [facility]ER Administration Protocol Insulin Aspart 15 units 05/17/25 12:00 05/18/25 08:27 Insulin Aspart (*Bkc) 100 Units/Ml SUB-Q 15 units TIDWM [facility] Administration Insulin Glargine 60 units 05/14/25 21:00 05/17/25 21:01 Insulin Glargine (*Bkc) 100 Units/Ml SUB-Q 60 units HS [facility] Administration Loratadine 10 mg 05/15/25 09:00 05/18/25 08:31 Loratadine 10 Mg Tablet PO 10 mg DAILY [facility]ER Administration Metoprolol Tartrate 12.5 mg 05/14/25 21:00 05/18/25 08:31 Metoprolol Tartrate 12.5 Mg Tablet PO 12.5 mg Q12HR [facility]ER Administration Miscellaneous Information 0 each 05/15/25 00:01 05/18/25 02:17 Dapagliflozin No Sub Generic? Ok To Sub With Jardiance? XX 06/14/25 00:00 Not Given CLARIFY [facility] Non-Formulary Medication 5 mg 05/15/25 09:00 Dapagliflozin Propanediol [Farxiga] PO 06/14/25 08:59 DAILY [facility] Pantoprazole Sodium 40 mg 05/15/25 09:00 05/18/25 08:31 Pantoprazole 40 Mg Tablet PO 40 mg QAM [facility] Administration Pramipexole Dihydrochloride 1 mg 05/14/25 21:00 05/17/25 20:50 Pramipexole 1 Mg Tablet PO 1 mg QHS SCHU[facility]ER Administration Quetiapine Fumarate 50 mg 05/14/25 21:00 05/17/25 20:50 Quetiapine Fumarate 25 Mg Tablet PO 50 mg HS [facility] Administration Tizanidine HCl 4 mg 05/14/25 19:10 Tizanidine Hcl 4 Mg Tablet PO QHS PRN Muscle Spasticity Trazodone HCl 50 mg 05/14/25 21:00 05/17/25 20:50 Trazodone Hcl 50 Mg Tablet PO 50 mg HS [facility]ER Administration Radiology Results: ITS Impressions Abdomen/Pelvis CT 05/14/25 11:30 IMPRESSION: 1. No acute findings. Chest X-Ray 05/16/25 09:25 IMPRESSION: 1. Persistent bibasilar atelectasis and/or airspace disease. Renal Ultrasound 05/16/25 15:06 IMPRESSION: 1. Normal kidneys without hydronephrosis. Labs Labs: Laboratory Results - last 24 hr 05/16/25 05/17/25 05/17/25 04:29 11:05 16:06 WBC RBC Hgb Hct MCV MCH MCHC RDW Plt Count MPV Immature Gran % (Auto) Neut % (Auto) Lymph % (Auto) Moody % (Auto) Eos % (Auto) Baso % (Auto) Lymph # (Auto) Moody # (Auto) Eos # (Auto) Baso # (Auto) Abs Immat Gran (auto) Absolute Neuts (auto) Absolute Nucleated RBC Nucleated RBC % Sodium Potassium Chloride Carbon Dioxide Anion Gap BUN Creatinine Estim Creat Clear Calc Estimated GFR Glucose POC Capillary Glucose 360 H 320 H Calcium Phosphorus Magnesium Total Bilirubin AST ALT Alkaline Phosphatase Total Protein Albumin M.pneumoniae IgM Titer <770 05/17/25 05/18/25 05/18/25 20:15 03:51 07:14 WBC 10.5 H RBC 3.99 L Hgb 11.1 L Hct 36.2 L MCV 90.7 MCH 27.8 MCHC 30.7 L RDW 17.4 H Plt Count 151 MPV 11.1 H Immature Gran % (Auto) 1.4 H Neut % (Auto) 85.1 H Lymph % (Auto) 6.0 L Moody % (Auto) 5.4 Eos % (Auto) 1.8 Baso % (Auto) 0.3 Lymph # (Auto) 0.63 L Moody # (Auto) 0.6 Eos # (Auto) 0.2 Baso # (Auto) 0.0 Abs Immat Gran (auto) 0.15 H Absolute Neuts (auto) 8.9 H Absolute Nucleated RBC 0.000 Nucleated RBC % 0.0 Sodium 133 L Potassium 3.9 Chloride 104 Carbon Dioxide 25 Anion Gap 4 BUN 71 H Creatinine 2.50 H Estim Creat Clear Calc 41 Estimated GFR 25 L Glucose 245 H POC Capillary Glucose 248 H 231 H Calcium 8.3 L Phosphorus 2.9 Magnesium 2.1 Total Bilirubin 0.5 AST 18 ALT 17 Alkaline Phosphatase 81 Total Protein 5.7 L Albumin 2.7 L M.pneumoniae IgM Titer
--- NOTE | 2025-05-18 19:50 | P.PNIM_ITS ---
Progress Note: A&P Assessment and Plan (1) Sepsis: Code(s): A41.9 - Sepsis, unspecified organism Status: Acute Assessment and Plan: -UTI with tachycardia, tachypnea, increased oxygen demand, altered mental status and fever -Cefepime and vancomycin started in ER and will be continued -No prior urine culture available but prior buttock wound culture with ESBL Klebsiella and MRSA UTI and pneumonia Follow urine culture Pneumonia suspected aspiration MRSA swab negative vancomycin discontinued (2) Elevated troponin: Code(s): R79.89 - Other specified abnormal findings of blood chemistry Status: Acute Assessment and Plan: -Mildly elevated troponin without chest pain with flat trend -Prior cardiac history significant -Cardiology consulted by ER, states that troponin elevation likely due to sepsis and not NM -Continue aspirin and clopidogrel (3) Acute and chronic respiratory failure ([id number]): Code(s): J96.20 - Acute and chronic respiratory failure, unspecified whether with hypoxia or hypercapnia Status: Acute Assessment and Plan: -Patient uses oxygen with BiPAP at night but not during the day -Noted to require oxygen for adequate saturations in ER and up to 6 LPM required after admission -CXR indicative of pulmonary edema or pneumonites with left basilar atelectasis or airspace disease -BiPAP with 4 LPM use at home per prior Pulmonology notes -ABG with hypercapnia BiPAP / with non improvement. Switched to AVAPS mode with subsequent improvement will continue continues AVAPS today and tonight. -Pulmonology consulted and discussed with him likely related to CHF exacerbation. And/or component of aspiration pneumonia AVAPS mode at night continue. ABG continues to improve Will need home O2 set up on discharge given increased oxygen demand. Also to be set up with AVAPS machine at home- ideally would want it delivered here with testing in the AM before discharge, however likely outcome is discharge to his BiPAP at home while awaiting AVAPS to be approved/delivered (4) Altered mental status: Code(s): R41.82 - Altered mental status, unspecified Status: Acute Assessment and Plan: -altered mental status likely due to hypercapnia -Likely metabolic encephalopathy from UTI though hypercapnea or hypoxia as cause is possible as well (5) Acute UTI: Code(s): N39.0 - Urinary tract infection, site not specified Status: Acute Assessment and Plan: -UA with >100 WBC with WBC clumps, 1+ bacteria, 2+ leukocyte esterase -Cefepime and vancomycin started in ER, will continue -No prior urine culture present -Patient had fever and elevated WBC 18.4 on admit WBC count continues to improve slowly (6) Hypomagnesemia: Code(s): E83.42 - Hypomagnesemia Status: Acute Assessment and Plan: -Magnesium 1.2 on admission, prior history of low magnesium -3 grams repleted over 3 hours Continue to monitor (7) Congestive heart failure: Qualifiers: Heart failure type: unspecified Heart failure chronicity: unspecified Qualified Code(s): I50.9 - Heart failure, unspecified Code(s): I50.9 - Heart failure, unspecified Status: Acute Assessment and Plan: -Hypoxia with new oxygen demand and CXR findings of interstitial pulmonary edema -Dose of Bumex 2 mg ordered and will plan to continue this daily medication -Monitor renal function -Echo ordered, recent Cardiology note scanned into the record from [facility] -Cardiology consulted by ER due to elevated troponin Continue diuresis with 2 mg Bumex IV b.i.d. which will be held today due to a bump in creatinine Creatinine lowered down today. Will continue to hold Bumex. If continues to improve will resume smaller dose of Bumex- cardiology recommends PO bumex 2mg bid, can consider if Cr is still improving in the AM (8) CKD (chronic kidney disease): Code(s): N18.9 - Chronic kidney disease, unspecified Status: Chronic Assessment and Plan: -Stable/chronic renal function noted on admit -One liter IV fluids given in ER, no further since pulmonary edema also noted Hold further IV hydration Diuresis ordered however now with DAWNA Will hold diuresis for today Check renal ultrasound [place] in place Will restart diuresis when renal function stabilizes- cardiology recommends PO bumex 2mg bid, can consider if Cr is still improving in the AM (9) Type 2 diabetes mellitus with hyperglycemia: 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30 - Sleep apnea, unspecified Status: Chronic Assessment and Plan: -BiPAP settings with 4 LPM bleed in per Pulmonology notes in 2021 -pulmonary on board Changed to AVAPS setting at night Plan Pneumonia: On vancomycin and cefepime. Will add doxycycline and Flagyl to cover aspiration as well. WBC count worsened however now stable. MRSA swab negative DC vancomycin DVT prophylaxis heparin subQ Disposition: PT OT to see Subjective Date/time seen: 05/18/25 19:50 Review of Systems Review of Systems: * Constitutional: Positive for fever and chills. No timeline certainty; likely less than 1?2 days. * Respiratory: Reports shortness of breath leading to presentation; currently denies trouble breathing during interview. Uses nocturnal BiPAP with 2 L O2. Required oxygen during the day today. No cough reported. * Cardiovascular: Denies chest pain. * Gastrointestinal: Denies nausea and vomiting. Reports normal bowel movements. Denies diarrhea. * Genitourinary: Frequent urination. Denies difficulty urinating. Known urinary tract infection. * Musculoskeletal: No specific joint pain reported. * Skin: Redness on legs; left leg with an open area/wound. * Neurological: Brought in for altered behavior (?wasn?t acting right?) per family. No focal neurologic deficits reported in interview. * Endocrine: History of diabetes mellitus. * Psychiatric: No mood symptoms reported; family noted behavior change. * Hematologic/Lymphatic: No bleeding or bruising reported. All systems reviewed & are unremarkable except as noted in HPI and below ROS unobtainable: Yes unobtainable due to mental status Exam Narrative: GENERAL: Morbidly obese elderly male on BiPAP not in acute distress alert and oriented x3 HEAD: Normocephalic, atraumatic. ENT:? Mucous membranes moist. CHEST: Diminished breath sounds bilaterally not in respiratory distress HEART: Mildly tachycardic rate with regular rhythm. ? Normal peripheral pulses. ABDOMEN: Soft, obese, mild generalized tenderness without rebound or guarding, normal bowel sounds noted. EXTREMITIES: Normal range of motion. Bilateral lower extremity edema with erythema due to PVD and some small fluid filled blisters on left anterior lower leg. much improved SKIN: Warm dry normal color NEURO: Alert and oriented x3 moving all extremities Objective Data Vital Signs Vital Signs: Vital Signs - 24 hr 05/17/25 20:00 05/17/25 20:00 05/17/25 20:04 Temperature 98.1 F Pulse Rate 102 H 94 Respiratory Rate 21 H Blood Pressure 124/63 Pulse Oximetry 94 93 Oxygen Delivery Nasal Cannula Oxygen Flow Rate 3 Fraction of Inspired Oxygen 05/17/25 20:50 05/17/25 21:35 05/17/25 22:00 Temperature Pulse Rate 97 90 84 Respiratory Rate 25 H Blood Pressure Pulse Oximetry 96 Oxygen Delivery BiPAP Oxygen Flow Rate Fraction of Inspired Oxygen 05/17/25 23:31 05/18/25 00:00 05/18/25 00:00 Temperature 98.0 F Pulse Rate 92 82 Respiratory Rate 20 Blood Pressure 130/67 Pulse Oximetry 93 95 Oxygen Delivery BiPAP Oxygen Flow Rate Fraction of Inspired Oxygen 40 05/18/25 02:00 05/18/25 02:06 05/18/25 04:00 Temperature Pulse Rate 81 85 Respiratory Rate 20 Blood Pressure Pulse Oximetry 95 95 Oxygen Delivery BiPAP BiPAP Oxygen Flow Rate Fraction of Inspired Oxygen 40 05/18/25 04:00 05/18/25 04:53 05/18/25 06:00 Temperature 98.2 F Pulse Rate 81 80 89 Respiratory Rate 21 H Blood Pressure 101/57 L Pulse Oximetry 92 Oxygen Delivery Oxygen Flow Rate Fraction of Inspired Oxygen 05/18/25 07:35 05/18/25 07:46 05/18/25 08:00 Temperature 97.7 F Pulse Rate 90 Respiratory Rate 20 Blood Pressure 137/52 L Pulse Oximetry 93 92 93 Oxygen Delivery Nasal Cannula Nasal Cannula Oxygen Flow Rate 3 3 Fraction of Inspired Oxygen 05/18/25 08:00 05/18/25 08:31 05/18/25 10:00 Temperature Pulse Rate 96 92 97 Respiratory Rate Blood Pressure Pulse Oximetry Oxygen Delivery Oxygen Flow Rate Fraction of Inspired Oxygen 05/18/25 11:55 05/18/25 16:00 05/18/25 16:13 Temperature 98.2 F 98.6 F Pulse Rate 91 86 92 Respiratory Rate 20 20 Blood Pressure 134/67 130/68 Pulse Oximetry 92 95 Oxygen Delivery Oxygen Flow Rate Fraction of Inspired Oxygen Intake/Output Intake/Output: Intake & Output 05/15/25 05/16/25 05/17/25 05/18/25 23:59 23:59 23:59 23:59 Intake Total 840 1920 1940 2240 Output Total 1250 1700 550 975 Balance -768 663 8275 1265 Meds/Results Medications: Active Medications Generic Name Dose Route Start Last Admin Trade Name Freq PRN Reason Stop Dose Admin Acetaminophen 1,000 mg 05/14/25 23:34 05/14/25 23:56 Acetaminophen 500 Mg Tablet PO 1,000 mg Q6H PRN Administration Mild Pain (1-3) or Fever Aspirin 81 mg 05/15/25 09:00 05/18/25 08:31 Aspirin 81 Mg Enteric Tablet PO 81 mg DAILY SCHUYLER Administration Atorvastatin Calcium 80 mg 05/15/25 09:00 05/18/25 08:31 Atorvastatin 40 Mg Tablet PO 80 mg DAILY SCHUYLER Administration Bumetanide 2 mg 05/15/25 09:30 05/15/25 17:52 Bumetanide Inj 2.5 Mg/10 Ml Vial IV PUSH 2 mg On Hold: 05/16/25 07:16 BID SCHUYLER Administration Clopidogrel Bisulfate 75 mg 05/15/25 09:00 05/18/25 08:31 Clopidogrel Bisulfate 75 Mg Tablet PO 75 mg QAM SCHUYLER Administration Cyanocobalamin 1,000 mcg 05/15/25 09:00 05/18/25 08:31 Cyanocobalamin 1,000 Mcg Tablet PO 1,000 mcg QAM SCHUYLER Administration Dextrose 12.5 gm 05/14/25 12:48 Dextrose 50% 25 Gm/50 Ml Syringe IV PUSH PRN PRN Hypoglycemia Protocol Diclofenac Sodium 1 applic 05/14/25 21:00 05/18/25 17:09 Diclofenac Sodium 1% 100 Gm Gel (*Bkc) TOPICAL 1 applic QID SCHUYLER Administration Diphenoxylate HCl/Atropine 1 tablet 05/14/25 19:10 Diphenoxylate/Atropine (*Crx) 2.5 Mg Tablet PO QID PRN Diarrhea Doxycycline Hyclate 100 mg 05/18/25 10:00 05/18/25 10:28 Doxycycline Hyclate 100 Mg Tablet PO 05/19/25 21:01 100 mg Q12HR SCHUYLER Administration Fish Oil 1 gm 05/14/25 21:00 05/18/25 08:31 Dowagiac 3 Polyunsat Fatty Acids 1 Gm Cap PO 1 gm Q12HR SCHUYLER Administration Fluoxetine HCl 20 mg 05/14/25 21:00 05/17/25 20:50 Fluoxetine Hcl 20 Mg Capsule PO 20 mg HS SCHUYLER Administration Fluticasone Propionate 1 spray 05/15/25 09:00 05/18/25 17:09 Fluticasone Propionate 0.05% Na Spr 16 Gm Btl (*Bkc) NASAL 1 spray BID SCHUYLER Administration Gabapentin 600 mg 05/14/25 21:00 05/18/25 08:31 Gabapentin 300 Mg Capsule PO 600 mg Q12HR SCHUYLER Administration Glucagon 1 mg 05/14/25 12:48 Glucagon For Inj 1 Mg Vial IM PRN PRN Hypoglycemia Protocol Glucose 15 gm 05/14/25 12:48 Glucose Oral Gel 15 Gm Of Glucse In 37.5 Gm Tube PO PRN PRN Hypoglycemia Protocol Heparin Sodium (Porcine) 5,000 units 05/16/25 14:00 05/18/25 14:15 Heparin Sodium 5,000 Units/Ml Vial SUB-Q 5,000 units Q8HR SCHUYLER Administration Cefepime HCl 2 gm/ Sodium 50 mls @ 100 mls/hr 05/14/25 21:00 05/18/25 08:32 Chloride IVPB 05/20/25 21:29 100 mls/hr Q12HR SCHUYLER Administration Dextrose 1,000 mls @ 100 mls/hr 05/14/25 12:48 Dextrose 5% 1,000 Ml IVPB PRN PRN Hypoglycemia Protocol Insulin Aspart 4 - 8 units 05/14/25 17:00 05/18/25 17:09 Insulin Aspart (*Bkc) 100 Units/Ml SUB-Q 4 units TIDWM SCHUYLER Administration Protocol Insulin Aspart 15 units 05/17/25 12:00 05/18/25 17:09 Insulin Aspart (*Bkc) 100 Units/Ml SUB-Q 15 units TIDWM SCHUYLER Administration Insulin Glargine 60 units 05/14/25 21:00 05/17/25 21:01 Insulin Glargine (*Bkc) 100 Units/Ml SUB-Q 60 units HS SCHUYLER Administration Loratadine 10 mg 05/15/25 09:00 05/18/25 08:31 Loratadine 10 Mg Tablet PO 10 mg DAILY SCHUYLER Administration Metoprolol Succinate 25 mg 05/18/25 21:00 Metoprolol Succinate Ext Rel 25 Mg Tabcr PO Q12HR [facility] Miscellaneous Information 0 each 05/15/25 00:01 05/18/25 02:17 Dapagliflozin No Sub Generic? Ok To Sub With Jardiance? XX 06/14/25 00:00 Not Given CLARIFY SCHUYLER Non-Formulary Medication 5 mg 05/15/25 09:00 Dapagliflozin Propanediol [Farxiga] PO 06/14/25 08:59 DAILY SCHUYLER Pantoprazole Sodium 40 mg 05/15/25 09:00 05/18/25 08:31 Pantoprazole 40 Mg Tablet PO 40 mg QAM SCHUYLER Administration Pramipexole Dihydrochloride 1 mg 05/14/25 21:00 05/17/25 20:50 Pramipexole 1 Mg Tablet PO 1 mg QHS SCHUYLER Administration Quetiapine Fumarate 50 mg 05/14/25 21:00 05/17/25 20:50 Quetiapine Fumarate 25 Mg Tablet PO 50 mg HS SCHUYLER Administration Tizanidine HCl 4 mg 05/14/25 19:10 Tizanidine Hcl 4 Mg Tablet PO QHS PRN Muscle Spasticity Trazodone HCl 50 mg 05/14/25 21:00 05/17/25 20:50 Trazodone Hcl 50 Mg Tablet PO 50 mg HS SCHUYLER Administration Radiology Results: ITS Impressions Abdomen/Pelvis CT 05/14/25 11:30 IMPRESSION: 1. No acute findings. Chest X-Ray 05/16/25 09:25 IMPRESSION: 1. Persistent bibasilar atelectasis and/or airspace disease. Renal Ultrasound 05/16/25 15:06 IMPRESSION: 1. Normal kidneys without hydronephrosis. Labs Labs: Laboratory Results - last 24 hr 05/17/25 05/18/25 05/18/25 20:15 03:51 07:14 WBC 10.5 H RBC 3.99 L Hgb 11.1 L Hct 36.2 L MCV 90.7 MCH 27.8 MCHC 30.7 L RDW 17.4 H Plt Count 151 MPV 11.1 H Immature Gran % (Auto) 1.4 H Neut % (Auto) 85.1 H Lymph % (Auto) 6.0 L [place] % (Auto) 5.4 Eos % (Auto) 1.8 Baso % (Auto) 0.3 Lymph # (Auto) 0.63 L [place] # (Auto) 0.6 Eos # (Auto) 0.2 Baso # (Auto) 0.0 Abs Immat Gran (auto) 0.15 H Absolute Neuts (auto) 8.9 H Absolute Nucleated RBC 0.000 Nucleated RBC % 0.0 Sodium 133 L Potassium 3.9 Chloride 104 Carbon Dioxide 25 Anion Gap 4 BUN 71 H Creatinine 2.50 H Estim Creat Clear Calc 41 Estimated GFR 25 L Glucose 245 H POC Capillary Glucose 248 H 231 H Calcium 8.3 L Phosphorus 2.9 Magnesium 2.1 Total Bilirubin 0.5 AST 18 ALT 17 Alkaline Phosphatase 81 Total Protein 5.7 L Albumin 2.7 L 05/18/25 05/18/25 11:12 15:40 WBC RBC Hgb Hct MCV MCH MCHC RDW Plt Count MPV Immature Gran % (Auto) Neut % (Auto) Lymph % (Auto) [place] % (Auto) Eos % (Auto) Baso % (Auto) Lymph # (Auto) [place] # (Auto) Eos # (Auto) Baso # (Auto) Abs Immat Gran (auto) Absolute Neuts (auto) Absolute Nucleated RBC Nucleated RBC % Sodium Potassium Chloride Carbon Dioxide Anion Gap BUN Creatinine Estim Creat Clear Calc Estimated GFR Glucose POC Capillary Glucose 247 H 242 H Calcium Phosphorus Magnesium Total Bilirubin AST ALT Alkaline Phosphatase Total Protein Albumin Quality VTE Prophylaxis VTE prophylaxis: pharmacologic ordered (Lovenox 40 mg BID (due to weight)) Hospitalist MIPS Advance Care Plan I have confirmed that the patient's Advanced Care Plan is present, code status is documented, or surrogate decision maker is listed in patient medical record.: Yes Medication Reconciliation I have utilized all available resources to obtain, update and review the patients current medications (includes all prescriptions, OTC, herbals, cannabis, and nutritional supplements).: Yes
[2025-05-18] MEDS: METOPROLOL SUCCINATE EXT REL 25 MG TABCR PO (20:23)
[2025-05-18] MEDS: INSULIN GLARGINE (*BKC) 100 UNITS/ML 60 UNITS SUB-Q (20:24)
[2025-05-18] MEDS: PRAMIPEXOLE 1 MG TABLET PO (20:24)
[2025-05-19] VITALS (25 sets, daily range): BP systolic 117–147; BP diastolic 55–77; PULSE 73–101; RESP 14–20; TEMP 36.3–36.6; O2SAT 85–97
--- NOTE | 2025-05-19 03:49 | PC.NURSE ---
This patient, Pascual Kowalski, was transferred to [facility] [place] on 05/19/25 at 0315. Personal belongings sent with patient. Report given to SID Estrada. Appropriate documentation sent with patient.
--- NOTE | 2025-05-19 03:57 | PC.NURSE ---
Pt transferred from IMU Room 214-1 to 2nd Medical Room 241-1 via bed w/ 3L O2 connected. All appropriate belongings and documentation transferred with patient. Report received from SID Greco.
[2025-05-19 05:13] LABS: Hematocrit 36.8 % (42.0-52.0); Hemoglobin 11.1 g/dL (14.0-18.0); Immature Granulocyte Percent A 2.9 % (0-0.5); Lymphocytes Absolute Auto 0.69 K/mm3 (0.9-3.2); Mean Corpuscular HGB Conc 30.2 g/dl (32-36); Mean Corpuscular Hemoglobin 27.1 pg (26-34); Mean Corpuscular Volume 90.0 fl (80-100); Nucleated Red Blood Cells Absolute Auto 0.000 K/mm3 (0.0-0.012); Nucleated Red Blood Cells Perc 0.0 % (0.0-0.2); Platelet Count Result 157 k/mm3 (150-375); Red Blood Count 4.09 M/mm3 (4.6-6.20); White Blood Count 8.7 K/mm3 (4.5-10.0)
[2025-05-19 05:33] LABS: Alanine Aminotransferase 17 U/L (6-50); Albumin Level 2.8 g/dL (3.5-5.1); Alkaline Phosphatase 62 U/L (38-126); Anion Gap 4 mmol/L (4-12); Aspartate Amino Transferase 16 U/L (17-59); Bilirubin,Total 0.3 mg/dL (0.2-1.3); Blood Urea Nitrogen 64 mg/dL (9-20); Calcium 8.5 mg/dL (8.4-10.2); Carbon Dioxide 26 mmol/L (22-30); Chloride 105 mmol/L (98-107); Estimated CRCL calculation 46 ml/min; Estimated Glomerular Filt Rate 30; Glucose 261 mg/dL (65-110); Magnesium 2.1 mg/dL (1.6-2.3); Potassium 3.9 mmol/L (3.4-5.0); Sodium 135 mmol/L (137-145); Total Protein 5.6 g/dL (6.3-8.2)
--- NOTE | 2025-05-19 07:43 | PM.IMPN ---
Progress Note: A&P Assessment and Plan (1) Sepsis: Code(s): A41.9 - Sepsis, unspecified organism Status: Acute Assessment and Plan: -UTI with tachycardia, tachypnea, increased oxygen demand, altered mental status and fever -Cefepime and vancomycin started in ER and will be continued -No prior urine culture available but prior buttock wound culture with ESBL Klebsiella and MRSA UTI and pneumonia Follow urine culture which grew E coli pansensitive Pneumonia suspected aspiration MRSA swab negative vancomycin discontinued Sepsis has resolved (2) Elevated troponin: Code(s): R79.89 - Other specified abnormal findings of blood chemistry Status: Acute Assessment and Plan: -Mildly elevated troponin without chest pain with flat trend -Prior cardiac history significant -Cardiology consulted by ER, states that troponin elevation likely due to sepsis and not [place] -Continue aspirin and clopidogrel (3) Acute and chronic respiratory failure ([id number]): Code(s): J96.20 - Acute and chronic respiratory failure, unspecified whether with hypoxia or hypercapnia Status: Acute Assessment and Plan: -Patient uses oxygen with BiPAP at night but not during the day -Noted to require oxygen for adequate saturations in ER and up to 6 LPM required after admission -CXR indicative of pulmonary edema or pneumonites with left basilar atelectasis or airspace disease -BiPAP with 4 LPM use at home per prior Pulmonology notes -ABG with hypercapnia BiPAP / with non improvement. Switched to AVAPS mode with subsequent improvement will continue continues AVAPS today and tonight. -Pulmonology consulted and discussed with him likely related to CHF exacerbation. And/or component of aspiration pneumonia AVAPS mode at night continue. ABG continues to improve Will need home O2 set up on discharge given increased oxygen demand. Also to be set up with AVAPS machine at home- ideally would want it delivered here with testing in the AM before discharge, however likely outcome is discharge to his BiPAP at home while awaiting AVAPS to be approved/delivered (4) Altered mental status: Code(s): R41.82 - Altered mental status, unspecified Status: Acute Assessment and Plan: -altered mental status likely due to hypercapnia -Likely metabolic encephalopathy from UTI though hypercapnea or hypoxia as cause is possible as well (5) Acute UTI: Code(s): N39.0 - Urinary tract infection, site not specified Status: Acute Assessment and Plan: -UA with >100 WBC with WBC clumps, 1+ bacteria, 2+ leukocyte esterase -Cefepime and vancomycin started in ER, will continue -No prior urine culture present -Patient had fever and elevated WBC 18.4 on admit WBC count continues to improve slowly and normalized (6) Hypomagnesemia: Code(s): E83.42 - Hypomagnesemia Status: Acute Assessment and Plan: -Magnesium 1.2 on admission, prior history of low magnesium -3 grams repleted over 3 hours Continue to monitor (7) Congestive heart failure: Qualifiers: Heart failure type: unspecified Heart failure chronicity: unspecified Qualified Code(s): I50.9 - Heart failure, unspecified Code(s): I50.9 - Heart failure, unspecified Status: Acute Assessment and Plan: -Hypoxia with new oxygen demand and CXR findings of interstitial pulmonary edema -Dose of Bumex 2 mg ordered and will plan to continue this daily medication -Monitor renal function -Echo ordered, recent Cardiology note scanned into the record from [facility] -Cardiology consulted by ER due to elevated troponin Continue diuresis with 2 mg Bumex IV b.i.d. which will be held today due to a bump in creatinine Creatinine lowered down today. Will continue to hold Bumex. If continues to improve will resume smaller dose of Bumex- cardiology recommends PO bumex 2mg bid, will start Bumex (8) CKD (chronic kidney disease): Code(s): N18.9 - Chronic kidney disease, unspecified Status: Chronic Assessment and Plan: -Stable/chronic renal function noted on admit -One liter IV fluids given in ER, no further since pulmonary edema also noted Hold further IV hydration Diuresis ordered however now with DAWNA Will hold diuresis for today Check renal ultrasound [place] in place Will restart diuresis when renal function stabilizes- cardiology recommends PO bumex 2mg bid, Will start Bumex 2 mg b.i.d. (9) Type 2 diabetes mellitus with hyperglycemia: Qualifiers: Diabetes mellitus [employer] insulin use: with custodial use Qualified Code(s): E11.65 - Type 2 diabetes mellitus with hyperglycemia; Z79.4 - intermediate (current) use of insulin Code(s): E11.65 - Type 2 diabetes mellitus with hyperglycemia Status: Chronic Assessment and Plan: -HGB A1c 8.9 on admit -Hold Willian since it is non-formulary and states no substitutions on RX unless family can bring in -Diabetic diet ordered -ACHS finger stick blood glucose with high dose SSI -Reduce home insulin dosing but prepare to titrate dosing based on fingerstick results (10) Sleep apnea: Code(s): G47.30 - Sleep apnea, unspecified Status: Chronic Assessment and Plan: -BiPAP settings with 4 LPM bleed in per Pulmonology notes in 2021 -pulmonary on board Changed to AVAPS setting at night here and setting being changed for discharge Plan Pneumonia: On vancomycin and cefepime. Will add doxycycline and Flagyl to cover aspiration as well. WBC count worsened however now stable. MRSA swab negative DC vancomycin. Cefepime to continue until doxycycline concludes today and Flagyl has been discontinued. DVT prophylaxis heparin subQ Disposition: PT OT to see Subjective Date/time seen: 05/19/25 07:43 Interval history: No overnight events. Feeling better. On 3 L oxygen. Use AVAPS at night. Leg swelling present. Labs reviewed. Review of Systems Review of Systems: All systems reviewed & are unremarkable except as noted in HPI and below Exam Narrative: GENERAL: Morbidly obese elderly male on BiPAP not in acute distress alert and oriented x3 HEAD: Normocephalic, atraumatic. ENT:? Mucous membranes moist. CHEST: Diminished breath sounds bilaterally not in respiratory distress HEART: Mildly tachycardic rate with regular rhythm. ? Normal peripheral pulses. ABDOMEN: Soft, obese, mild generalized tenderness without rebound or guarding, normal bowel sounds noted. EXTREMITIES: Normal range of motion. Bilateral lower extremity edema with erythema due to PVD and some small fluid filled blisters on left anterior lower leg. much improved SKIN: Warm dry normal color NEURO: Alert and oriented x3 moving all extremities Objective Data Vital Signs Vital Signs: Vital Signs - 24 hr 05/18/25 07:46 05/18/25 08:00 05/18/25 08:00 Temperature 97.7 F Pulse Rate 90 96 Respiratory Rate 20 Blood Pressure 137/52 L Pulse Oximetry 92 93 Oxygen Delivery Nasal Cannula Oxygen Flow Rate 3 05/18/25 08:31 05/18/25 10:00 05/18/25 11:55 Temperature 98.2 F Pulse Rate 92 97 91 Respiratory Rate 20 Blood Pressure 134/67 Pulse Oximetry 92 Oxygen Delivery Oxygen Flow Rate 05/18/25 16:00 05/18/25 16:13 05/18/25 20:00 Temperature 98.6 F 97.6 F Pulse Rate 86 92 98 Respiratory Rate 20 20 Blood Pressure 130/68 148/71 H Pulse Oximetry 95 94 Oxygen Delivery Oxygen Flow Rate 05/18/25 20:00 05/18/25 20:16 05/18/25 20:23 Temperature Pulse Rate 95 95 Respiratory Rate Blood Pressure Pulse Oximetry 94 Oxygen Delivery Nasal Cannula Oxygen Flow Rate 3 05/18/25 21:06 05/19/25 00:00 05/19/25 00:38 Temperature 97.8 F Pulse Rate 92 93 85 Respiratory Rate 22 H 20 Blood Pressure 119/62 Pulse Oximetry 95 95 Oxygen Delivery BiPAP Oxygen Flow Rate 05/19/25 02:26 05/19/25 04:00 05/19/25 04:00 Temperature Pulse Rate 83 78 Respiratory Rate 20 Blood Pressure Pulse Oximetry 95 95 Oxygen Delivery BiPAP Nasal Cannula Oxygen Flow Rate 3 05/19/25 04:51 Temperature 97.8 F Pulse Rate 78 Respiratory Rate 16 Blood Pressure 117/55 L Pulse Oximetry 94 Oxygen Delivery Oxygen Flow Rate Intake/Output Intake/Output: Intake & Output 05/16/25 05/17/25 05/18/25 05/19/25 23:59 23:59 23:59 23:59 Intake Total 1920 1940 2340 Output Total 1700 550 975 Balance 220 1390 1365 Meds/Results Medications: Active Medications Generic Name Dose Route Start Last Admin Trade Name Freq PRN Reason Stop Dose Admin Acetaminophen 1,000 mg 05/14/25 23:34 05/14/25 23:56 Acetaminophen 500 Mg Tablet PO 1,000 mg Q6H PRN Administration Mild Pain (1-3) or Fever Aspirin 81 mg 05/15/25 09:00 05/18/25 08:31 Aspirin 81 Mg Enteric Tablet PO 81 mg DAILY SCHUYLER Administration Atorvastatin Calcium 80 mg 05/15/25 09:00 05/18/25 08:31 Atorvastatin 40 Mg Tablet PO 80 mg DAILY SCHUYLER Administration Bumetanide 2 mg 05/15/25 09:30 05/15/25 17:52 Bumetanide Inj 2.5 Mg/10 Ml Vial IV PUSH 2 mg On Hold: 05/16/25 07:16 BID SCHUYLER Administration Clopidogrel Bisulfate 75 mg 10/06/25 09:00 05/18/25 08:31 Clopidogrel Bisulfate 75 Mg Tablet PO 75 mg QAM SCHUYLER Administration Cyanocobalamin 1,000 mcg 05/15/25 09:00 05/18/25 08:31 Cyanocobalamin 1,000 Mcg Tablet PO 1,000 mcg QAM SCHUYLER Administration Dextrose 12.5 gm 05/14/25 12:48 Dextrose 50% 25 Gm/50 Ml Syringe IV PUSH PRN PRN Hypoglycemia Protocol Diclofenac Sodium 1 applic 05/14/25 21:00 05/18/25 20:26 Diclofenac Sodium 1% 100 Gm Gel (*Bkc) TOPICAL 1 applic QID SCHUYLER Administration Diphenoxylate HCl/Atropine 1 tablet 05/14/25 19:10 Diphenoxylate/Atropine (*Crx) 2.5 Mg Tablet PO QID PRN Diarrhea Doxycycline Hyclate 100 mg 05/18/25 10:00 05/18/25 20:23 Doxycycline Hyclate 100 Mg Tablet PO 05/19/25 21:01 100 mg Q12HR SCHUYLER Administration Fish Oil 1 gm 05/14/25 21:00 05/18/25 20:23 [place] 3 Polyunsat Fatty Acids 1 Gm Cap PO 1 gm Q12HR SCHUYLER Administration Fluoxetine HCl 20 mg 05/14/25 21:00 05/18/25 20:23 Fluoxetine Hcl 20 Mg Capsule PO 20 mg HS SCHUYLER Administration Fluticasone Propionate 1 spray 05/15/25 09:00 05/18/25 17:09 Fluticasone Propionate 0.05% Na Spr 16 Gm Btl (*Bkc) NASAL 1 spray BID SCHUYLER Administration Gabapentin 600 mg 05/14/25 21:00 05/18/25 20:23 Gabapentin 300 Mg Capsule PO 600 mg Q12HR SCHUYLER Administration Glucagon 1 mg 05/14/25 12:48 Glucagon For Inj 1 Mg Vial IM PRN PRN Hypoglycemia Protocol Glucose 15 gm 05/14/25 12:48 Glucose Oral Gel 15 Gm Of Glucse In 37.5 Gm Tube PO PRN PRN Hypoglycemia Protocol Heparin Sodium (Porcine) 5,000 units 05/16/25 14:00 05/19/25 05:21 Heparin Sodium 5,000 Units/Ml Vial SUB-Q 5,000 units Q8HR SCHUYLER Administration Cefepime HCl 2 gm/ Sodium 50 mls @ 100 mls/hr 05/14/25 21:00 05/18/25 23:36 Chloride IVPB 05/20/25 21:29 Infused Q12HR SCHUYLER Infusion Dextrose 1,000 mls @ 100 mls/hr 05/14/25 12:48 Dextrose 5% 1,000 Ml IVPB PRN PRN Hypoglycemia Protocol Insulin Aspart 4 - 8 units 05/14/25 17:00 05/18/25 17:09 Insulin Aspart (*Bkc) 100 Units/Ml SUB-Q 4 units TIDWM SCHUYLER Administration Protocol Insulin Aspart 15 units 05/17/25 12:00 05/18/25 17:09 Insulin Aspart (*Bkc) 100 Units/Ml SUB-Q 15 units TIDWM SCHUYLER Administration Insulin Glargine 60 units 05/14/25 21:00 05/18/25 20:24 Insulin Glargine (*Bkc) 100 Units/Ml SUB-Q 60 units HS SCHUYLER Administration Loratadine 10 mg 05/15/25 09:00 05/18/25 08:31 Loratadine 10 Mg Tablet PO 10 mg DAILY SCHUYLER Administration Metoprolol Succinate 25 mg 05/18/25 21:00 05/18/25 20:23 Metoprolol Succinate Ext Rel 25 Mg Tabcr PO 25 mg Q12HR SCHUYLER Administration Miscellaneous Information 0 each 05/15/25 00:01 05/18/25 02:17 Dapagliflozin No Sub Generic? Ok To Sub With Jardiance? XX 06/14/25 00:00 Not Given CLARIFY SCHUYLER Non-Formulary Medication 5 mg 05/15/25 09:00 Dapagliflozin Propanediol [Farxiga] PO 06/14/25 08:59 DAILY SCHUYLER Pantoprazole Sodium 40 mg 05/15/25 09:00 05/18/25 08:31 Pantoprazole 40 Mg Tablet PO 40 mg QAM SCHUYLER Administration Pramipexole Dihydrochloride 1 mg 05/14/25 21:00 05/18/25 20:24 Pramipexole 1 Mg Tablet PO 1 mg QHS SCHUYLER Administration Quetiapine Fumarate 50 mg 05/14/25 21:00 05/18/25 20:24 Quetiapine Fumarate 25 Mg Tablet PO 50 mg HS SCHUYLER Administration Tizanidine HCl 4 mg 05/14/25 19:10 Tizanidine Hcl 4 Mg Tablet PO QHS PRN Muscle Spasticity Trazodone HCl 50 mg 05/14/25 21:00 05/18/25 20:24 Trazodone Hcl 50 Mg Tablet PO 50 mg HS SCHUYLER Administration Radiology Results: ITS Impressions Abdomen/Pelvis CT 05/14/25 11:30 IMPRESSION: 1. No acute findings. Chest X-Ray 05/16/25 09:25 IMPRESSION: 1. Persistent bibasilar atelectasis and/or airspace disease. Renal Ultrasound 05/16/25 15:06 IMPRESSION: 1. Normal kidneys without hydronephrosis. Labs Labs: Laboratory Results - last 24 hr 05/18/25 05/18/25 05/18/25 07:14 11:12 15:40 WBC RBC Hgb Hct MCV MCH MCHC RDW Plt Count MPV Immature Gran % (Auto) Neut % (Auto) Lymph % (Auto) [place] % (Auto) Eos % (Auto) Baso % (Auto) Lymph # (Auto) [place] # (Auto) Eos # (Auto) Baso # (Auto) Abs Immat Gran (auto) Absolute Neuts (auto) Absolute Nucleated RBC Nucleated RBC % Sodium Potassium Chloride Carbon Dioxide Anion Gap BUN Creatinine Estim Creat Clear Calc Estimated GFR Glucose POC Capillary Glucose 231 H 247 H 242 H Calcium Phosphorus Magnesium Total Bilirubin AST ALT Alkaline Phosphatase Total Protein Albumin 05/18/25 05/19/25 20:32 04:47 WBC 8.7 RBC 4.09 L Hgb 11.1 L Hct 36.8 L MCV 90.0 MCH 27.1 MCHC 30.2 L RDW 17.3 H Plt Count 157 MPV 10.9 H Immature Gran % (Auto) 2.9 H Neut % (Auto) 80.5 H Lymph % (Auto) 8.0 L [place] % (Auto) 5.7 Eos % (Auto) 2.4 Baso % (Auto) 0.5 Lymph # (Auto) 0.69 L [place] # (Auto) 0.5 Eos # (Auto) 0.2 Baso # (Auto) 0.0 Abs Immat Gran (auto) 0.25 H Absolute Neuts (auto) 7.0 H Absolute Nucleated RBC 0.000 Nucleated RBC % 0.0 Sodium 135 L Potassium 3.9 Chloride 105 Carbon Dioxide 26 Anion Gap 4 BUN 64 H Creatinine 2.19 H Estim Creat Clear Calc 46 Estimated GFR 30 L Glucose 261 H POC Capillary Glucose 242 H Calcium 8.5 Phosphorus 2.8 Magnesium 2.1 Total Bilirubin 0.3 AST 16 L ALT 17 Alkaline Phosphatase 62 Total Protein 5.6 L Albumin 2.8 L
--- NOTE | 2025-05-19 08:22 | PM.PNPUL ---
Progress Note: A&P Assessment and Plan (1) Obesity hypoventilation syndrome: Code(s): E66.2 - Morbid (severe) obesity with alveolar hypoventilation Status: Acute Assessment and Plan: Patient with morbid obesity, BMI 66.0, no evidence of chronic lung disease such as asthma or COPD. He is a never smoker. 05/15/2025 TSH 2.16, free T4 0.97 no evidence of thyroid disease. ABG 09/24/2021 was 7.12/82/ 91 on 2 L nasal cannulae. ABG on 05/15/2025 on 8 L nasal cannula 7.. Patient has been treated at home with BiPAP no rate, pressures 22/16 with 4 L bleed in. Patient has obesity hypoventilation syndrome with chronic hypercarbic respiratory failure and would benefit from noninvasive ventilation to prevent further deterioration and subsequent hospitalizations. Patient has failed BiPAP rate 16 with pressures 22/16 and 36% FIO2 with ABG 7.. In addition his recent download shows an AHI of 20.7 on BiPAP. I have initiated noninvasive ventilation with the AVAPS mode. Most recent download: Download 12/25/2023 through 03/23/2020 for through [employer]. Patient is on BiPAP spontaneous rate, pressures 22/16. Usage days greater than or equal to 4 hours is 88%. Average usage on days used is 5 hours and 49 minutes. AHI 18.2, apnea index 17.9, hypopnea index 0.3. Median leak 29.1, 95th percentile leak 62.4, maximal leak 98.5. Central apnea index 2.1. Median tidal volume 317, median respiratory rate 13. Median minute ventilation 4.8. I interpret this download as adequate compliance, high AHI, high leak, low tidal volume, low minute ventilation. Patient then had an emesis episode with the mask on and was taken off BiPAP with a blood gas on 8 L 7.. He improved and was placed back on BiPAP rate of 16, pressures 22/16 and 36% FiO2 and after 3 hours his blood gas was 7.20/70/84. When I enter the room the patient had a high leak and said the mask and machine were uncomfortable. Switched him to a noninvasive ventilator mode with the AVAPS mode and adjusted the settings to come for resulting in a rate of 20, tidal volume 550, EPAP 10, minimal inspiratory pressure 11, maximal inspiratory pressure 25, inspiratory time 1.0, rise of 5 which is the slowest and 40% FiO2. Patient said this was comfortable. 05/15/25: Plan: Patient is awake and communicative. He does doze off but says he is just tired and taking a nap. I will check an ABG after 1 hour to reassess his hypercarbic respiratory failure. Patient's ABG deteriorated after he had a vomiting episode and he may have aspirated. Currently on vancomycin, cefepime both started 05/14/2025. Flagyl and doxycycline started 05/15/2025. I will send respiratory pathogen panel, urine for Legionella, urine for pneumococcal, serum for me mycoplasma IgM. He has no history of COPD, he is a never smoker, no history of asthma. He was given Solu-Medrol 60 mg IV x1 and I do not see a need to continue this medicine. He is empirically placed on DuoNebs q.6 hours and will continue this for the time being. Patient has peripheral edema and agree with as aggressive diuresis as tolerated by his cardiac and renal systems. Currently the patient is on Bumex 2 mg IV b.i.d.. He is positive 1 L since admission. His weight today is 198 lb. Will attempt to obtain a more recent download From patient's [employer] company, [employer] [facility], to assess patient's compliance. Later in day I obtained download from [employer] 02/13/2025 through 05/13/2025. Patient is on BiPAP spontaneous rate, pressures 22/16. Usage days greater than or equal to 4 hours is 86%. Average usage on days used is 5 hours and 34 minutes. AHI 20.7. Apnea index 20.6, hypopnea index 0.1. Central apnea index 1.0. Median leak 53.0. Ninety-fifth percentile leak 92.8. Maximum leak 114.6. I interpret this download as adequate compliance, high AHI, and high leak. Later in the day patient had an echocardiogram which is a technically difficult study. LVEF was 30-35% with diastolic dysfunction. Normal right ventricular size and function, normal right atrial size, no tricuspid regurg, normal aortic valve with no aortic stenosis or aortic regurgitation. 05/16/2025: When I enter the room the patient was on noninvasive ventilation with the AVAPS mode and says that the air was going in too fast and I decreased his inspiratory time from 1.0 to 1.2. He said this was improved. He said this machine felt like his home machine. He told me he was ready to come off the machine. I placed him on 5 L nasal cannula and then decreased him to 3 L nasal cannula saturations 93%. The patient was awake stating he was thirsty and stating he was breathing normal with no cough, phlegm or hemoptysis. He denied fever, chills, rigors. He has been afebrile for 32 hours. White blood cell count 21.0, creatinine 3.18, BUN 67. Yesterday he was -410 mL and cumulative he is positive 440 since admission. His weight is 197 kg. Chest x-ray today shows small lung volumes, cardiomegaly, bibasilar interstitial alveolar infiltrates with no change since 05/15/2025. Patient wore the hospital noninvasive ventilation with the AVAPS mode settings as above with a blood gas of 7.26/57/95. Plan: Mental status has returned to baseline and patient states he is breathing at his baseline. ABG on maximal rate of 20 and tidal volume 550 remains with acute on chronic respiratory acidosis, patient is also in renal failure with creatinine of 3.18 and a serum bicarb of 28. I will continue current AVAPS settings and perform overnight oximetry on 36% FiO2 and an ABG prior to removal in the morning. Patient is positive 440 mL since admission but his creatinine now his increased to 3.18 and I have placed his diuretics on hold. Currently he is on vancomycin and cefepime since 05/14/2025 and doxycycline and Flagyl since 05/15/2025. MRSA swab reordered. Respiratory pathogen panel, urine Legionella, urine pneumococcal and serum mycoplasma IgM pending. 05/17/2025: Patient states he is feeling back to his baseline. Says his breathing is normal with no cough, phlegm or hemoptysis. When I enter the room he is on 4 L nasal cannula with saturations 95%. I decreased him to 1 L with saturations 93%. patient is afebrile. White blood cell count 17.9, creatinine 2.98, BUN 76, serum bicarb 26. Respiratory pathogen panel returned positive for rhino virus. Urine with E coli. Patient wore the hospital noninvasive ventilator with the AVAPS mode of 20, tidal volume 550, EPAP 10, minimal inspiratory pressure 11, maximal inspiratory pressure 25, inspiratory time 1.2, rise of 5 which is the slowest and 36% FiO2. patient said he slept well with these settings and that he felt like he was getting more air than when he was on the BiPAP. Patient had an ABG prior to removal of 7.. Patient had an overnight oximetry on these settings with recording duration of 1 hour and 20 minutes, average saturation 95%, low saturation 92%. Time with saturation less than or equal to 88% was 0 minutes. Oxygen desaturation index 1.3. Plan: Mental status has returned to baseline and patient states he is breathing normal. He did state that he developed sinus congestion prior to this hospitalization which may be consistent with rhino virus infection. ABG on maximal rate of 20 and tidal volume 550 on AVAPS improved And will continue these settings. Oxygenation adequate on 36% FiO2. I will initiate the process for home noninvasive ventilator with the AVAPS mode through [employer] [facility]. Patient is positive 1000 mL since admission And developed acute kidney injury with a creatinine of 3.18 On 05/16/2025. on 05/17/2025 Creatinine is 2.98. diuretics on hold. Currently was on vancomycin (05/14/25 through 05/16/25 or longer with DAWNA, MRSA negative) and cefepime since 05/14/2025 and doxycycline and Flagyl since 05/15/2025. Will continue cefepime, day 3. Doxycycline and Flagyl, day 2. Urine Legionella, urine pneumococcal and serum mycoplasma IgM pending. Discussed results of echocardiogram and hospitalists will review with Cardiology. 05/18/2025: Patient wore the hospital noninvasive ventilator overnight with the AVAPS mode and 36% FiO2 and said he slept well, feels refreshed and this machine is working better than his home BiPAP machine. Overall he tells me he is breathing normal, denies cough, phlegm or hemoptysis. When I enter the room is on 3 L nasal cannula saturations 92%. White blood cell count 10.5, creatinine 2.50, BUN 71. Yesterday he was positive 1.3 L, currently he is positive 2.2 L since admission. His weight today is 201 kg. I have completed an order form for home noninvasive ventilator with the IVAPS mode through [employer]. Settings rate of 20, tidal volume 550, be minimum EPAP 5, maximum EPAP 20, minimum pressure support 6, maximum pressure support 25 and 4 L bleed in. Plan: Current noninvasive ventilator with the AVAPS mode has improved his hypercarbic respiratory failure and 4 L bleed in oxygen provides adequate oxygenation. Will continue current settings while he is in the hospital. We have initiated the process for home noninvasive ventilator with the IVAPS mode through his [employer] company [employer]. He has Medicare [facility] insurance and will wait for their approval. If he is ready to be discharged this can be set up as an outpatient and he would wear his home BiPAP no rate pressures 22/16 and 4 L bleed in pending set up of the noninvasive ventilator. Patient states he is breathing normally. He is afebrile and his leukocytosis is improving. Remains on cefepime since 05/14/2025 and doxycycline since 05/15/2025. Will complete 7 days of cefepime, 5 days of doxycycline. Will discontinue Flagyl today (05/15/25 through 05/18/25). S/P vancomycin (05/14/25 through 05/16/25 or longer with DAWNA, MRSA negative). Respiratory pathogen panel positive for rhino virus, mycoplasma pneumonia IgM negative and Urine Legionella, urine pneumococcal pending. 05/19/2025: Patient wore the hospital noninvasive ventilator overnight with the AVAPS mode and 36% FiO2 and tolerated this well. Overall he tells me he is breathing normal, denies cough, phlegm or hemoptysis. When I enter the room is on 3 L nasal cannula saturations 96%. I decreased him to 1 L nasal cannula and his saturations were 94%. White blood cell count 8/.7, creatinine 2.19, BUN 64. Yesterday he was positive 1.3 L, currently he is positive 3.8 L since admission. His weight today is 195 kg. [employer] will set up with a loaner home noninvasive ventilator while awaiting for [facility]/ Medicare approval. yesterday the patient walked 13 ft with a wheeled walker. Plan: [employer] will set up with a loaner home noninvasive ventilator with the above settings. I will perform overnight oximetry and an ABG prior to removal on his home machine. If patient tolerates his home machine would be ready to be discharged on 05/20/2025 from a pulmonary perspective. I will perform a home O2 assessment today. Remains on cefepime since 05/14/2025 and doxycycline since 05/15/2025. Will complete 7 days of cefepime, 5 days of doxycycline, Both to end on 05/20/2025. S/P Flagyl (05/15/25 through 05/18/25). S/P vancomycin (05/14/25 through 05/16/25 or longer with DAWNA, MRSA negative). Respiratory pathogen panel positive for rhino virus, mycoplasma pneumonia IgM negative and Urine Legionella, urine pneumococcal pending. Creatinine has improved back to his baseline and hospitalist has started Bumex 2 mg p.o. b.i.d. for diuresis. Discussed with Dr. Mays. Will follow with you. Subjective Date/time seen: 05/19/25 08:22 Interval history: 05/15/2025: This is a new pulmonary consult for acute respiratory failure. 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 Regarding patient's coronary artery disease he had a PTCA of his LAD and RCA in 2009. Patient had a TAVR in March of 2020. Patient saw his [facility] resource [facility] teacher Dr. Chappell on 04/13/2025 it said that he was stable with no problems from his coronary artery disease and TAVR perspective, the note said he has obstructive sleep apnea but office CPAP no medication changes were made. Regarding his follicular lymphoma stage I diagnosed in the groin on 01/25 with the ultrasounded gaudencio I did a biopsy completed chemotherapy and immuno therapy on . Saw his oncologist on 12/01/2024 with no evidence of recurrence. Followed in the Pulmonary Clinic in last seen on 03/28/2024 for obstructive sleep apnea on BiPAP and chronic respiratory failure related to obesity hypoventilation. States he is compliant with BiPAP 22/16 and 4 L bleed in. He was sleeping well and had no concerns. BiPAP was working fine. Nocturia couple times. He complained of a dry cough and was prescribed Claritin and Flonase. Very severe obstructive sleep apnea evidenced by overall AHI 106.6 on a sleep study in October 2021. This was followed by a BiPAP titration study recommending [id number] with 2L/min O2 bleed in October 2021. Download 12/25/2023 through 03/23/2020 for through [employer]. Patient is on BiPAP spontaneous rate, pressures 22/16. Usage days greater than or equal to 4 hours is 88%. Average usage on days used is 5 hours and 49 minutes. AHI 18.2, apnea index 17.9, hypopnea index 0.3. Median leak 29.1, 95th percentile leak 62.4, maximal leak 98.5. Central apnea index 2.1. Median tidal volume 317, median respiratory rate 13. Median minute ventilation 4.8. I interpret this download as adequate compliance, high AHI, high leak, low tidal volume, low minute ventilation. Recommend follow-up 6 months. 05/14/2025: Patient brought to the emergency room for altered mental status and lethargy. History obtained from the family. In the emergency department he was lethargic with a blood pressure 119/59, heart rate 113, temperature 100.2?, room air saturations 93%. He is placed on 2.5 L and his saturations were 93%. White blood cell count 90 2 minutes 18.4, creatinine 2.13, BUN 44, serum bicarb 27, BNP 1120, COVID, influenza, RSV RT PCR assay negative, UA was consistent with a UTI. Patient had a CT scan of abdomen and pelvis which showed atelectasis in the bases but no pleural effusions, focal consolidations or interstitial lung disease. patient given IV fluids and admitted to the hospital with a urinary tract infection. He was more awake and communicative when talking to the hospitalist who admitted him. Patient was placed on his BiPAP settings of 22/16 and 4 L bleed in and had an ABG of 7.37/42/74. 05/15/25: About 5 hours later the patient vomited with his mask on, and was taken off BiPAP and placed on 8 L nasal cannula the blood gas of 7.24/65/84. The patient was then placed on Airvo 40 L, 40% with blood gas of 7.21/70/72. Patient was then placed back on his BiPAP 22/16 with 36% FiO2 and after 3 hours his blood gas was 7.20/70/84. When air new entered the room the patient was awake, he knew his name, show me 2 fingers and wiggled his toes. He denied being in pain and said he had no infectious complaints prior to coming to the hospital. He denied fever, chills, phlegm production or hemoptysis. He states he wears a BiPAP machine at night but does not know his DME company. Says he uses 4 L at night bleed in. The patient was on BiPAP rate of 16 breathing 20, pressures 22/16 with a tidal volume of 531 and minute ventilation of 8.7. His leak was 107 and his saturations were 92. The patient said this machine was not as comfortable as his home machine and I switched him to a noninvasive ventilator mode with the AVAPS mode and adjusted the settings to come for resulting in a rate of 20, tidal volume 550, EPAP 10, minimal inspiratory pressure 11, maximal inspiratory pressure 25, inspiratory time 1.0, rise of 5 which is the slowest and 40% FiO2. Patient said this was comfortable. Later in day I obtained download from [employer] 02/13/2025 through 05/13/2025. Patient is on BiPAP spontaneous rate, pressures 22/16. Usage days greater than or equal to 4 hours is 86%. Average usage on days used is 5 hours and 34 minutes. AHI 20.7. Apnea index 20.6, hypopnea index 0.1. Central apnea index 1.0. Median leak 53.0. Ninety-fifth percentile leak 92.8. Maximum leak 114.6. I interpret this download as adequate compliance, high AHI, and high leak. Later in the day patient had an echocardiogram which is a technically difficult study. LVEF was 30-35% with diastolic dysfunction. Normal right ventricular size and function, normal right atrial size, no tricuspid regurg, normal aortic valve with no aortic stenosis or aortic regurgitation. 05/16/2025: When I enter the room the patient was on noninvasive ventilation with the AVAPS mode and says that the air was going in to fast and I decreased his inspiratory time from 1.0-1.2. He said this was improved. He said this machine felt like his home machine. He told me he was ready to come off the machine. I placed him on 5 L nasal cannula and then decreased him to 3 L nasal cannula saturations 93%. The patient was awake stating he was thirsty and stating he was breathing normal with no cough, phlegm or hemoptysis. He denied fever, chills, rigors. He has been afebrile for 32 hours. White blood cell count 21.0, creatinine 3.18, BUN 67. Yesterday he was -410 mL and cumulative he is positive 440 since admission. His weight is 197 kg. Chest x-ray today shows small lung volumes, cardiomegaly, bibasilar interstitial alveolar infiltrates with no change since 05/15/2025. Patient wore the hospital noninvasive ventilation with the AVAPS mode settings as above with a blood gas of 7.26/57/95. 05/17/2025: Patient states he is feeling back to his baseline. Says his breathing is normal with no cough, phlegm or hemoptysis. When I enter the room he is on 4 L nasal cannula with saturations 95%. I decreased him to 1 L with saturations 93%. patient is afebrile. White blood cell count 17.9, creatinine 2.98, BUN 76, serum bicarb 26. Respiratory pathogen panel returned positive for rhino virus. Urine with E coli. Patient wore the hospital noninvasive ventilator with the AVAPS mode of 20, tidal volume 550, EPAP 10, minimal inspiratory pressure 11, maximal inspiratory pressure 25, inspiratory time 1.2, rise of 5 which is the slowest and 36% FiO2. patient said he slept well with these settings and that he felt like he was getting more air than when he was on the BiPAP. Patient had an ABG prior to removal of 7.30/. Patient had an overnight oximetry on these settings with recording duration of 1 hour and 20 minutes, average saturation 95%, low saturation 92%. Time with saturation less than or equal to 88% was 0 minutes. Oxygen desaturation index 1.3. 05/18/2025: Patient wore the hospital noninvasive ventilator overnight with the AVAPS mode and 36% FiO2 and said he slept well, feels refreshed and this machine is working better than his home BiPAP machine. Overall he tells me he is breathing normal, denies cough, phlegm or hemoptysis. When I enter the room is on 3 L nasal cannula saturations 92%. White blood cell count 10.5, creatinine 2.50, BUN 71. Yesterday he was positive 1.3 L, currently he is positive 2.2 L since admission. His weight today is 201 kg. I have completed an order form for home noninvasive ventilator with the IVAPS mode through [employer]. Settings rate of 20, tidal volume 550, be minimum EPAP 5, maximum EPAP 20, minimum pressure support 6, maximum pressure support 25 and 4 L bleed in. 05/19/2025: Patient wore the hospital noninvasive ventilator overnight with the AVAPS mode and 36% FiO2 and tolerated this well. Overall he tells me he is breathing normal, denies cough, phlegm or hemoptysis. When I enter the room is on 3 L nasal cannula saturations 96%. I decreased him to 1 L nasal cannula and his saturations were 94%. White blood cell count 8/.7, creatinine 2.19, BUN 64. Yesterday he was positive 1.3 L, currently he is positive 3.8 L since admission. His weight today is [address] [facility] will set up with a loaner home noninvasive ventilator while awaiting for [facility]/ Medicare approval. yesterday the patient walked 13 ft with a wheeled walker. DATA 05/14/25: CT ABDOMEN AND PELVIS WITHOUT CONTRAST Clinical History: septic; UTI, repeated with tighter straps and repositioning Comparison: 09/24/2021 Technique: Unenhanced axial images lung bases to symphysis pubis Coronal, sagittal reformats CT images acquired with automatic exposure control for dose reduction DLP: 3856 mGy-cm Findings: Without intravenous contrast, sensitivity for detecting visceral parenchymal abnormalities decreased. Portions of left hemiabdomen excluded from images Lung bases: Dependent atelectasis. Visualized heart and pericardium: Coronary artery calcification. Liver: Enlarged. Steatosis. Gallbladder: Removed. Spleen: Unremarkable. Pancreas: Atrophy. Adrenal glands: Unremarkable. Kidneys: Right kidney- No hydronephrosis. No renal stones. Left kidney- No hydronephrosis. No renal stones. Distal esophagus/stomach: Unremarkable. Small bowel loops: Normal caliber and wall thickness. Colon: Diverticula. Normal caliber and wall thickness. Appendix not seen. Nodes: Prominent partially calcified nodes right groin. Peritoneum: No ascites. No free intraperitoneal air. Urinary bladder: Mild wall thickening but under distended. Prostate: Unremarkable. Bones: No acute bony abnormality. Soft tissues: Midline abdominal wall hernia mesh. Unopacified abdominal aorta: No aneurysmal dilatation. IMPRESSION: 1. No acute findings. 03/05/22 - Overnight oximetry on BiPAP 22/16 with 3L/min O2 - Time spent at or below 88% saturation was 33 min. He was advised to increase liter flow to 4L/min. 02/11/22 - Overnight oximetry on BiPAP 22/16 with 2L/min bleed in - time spent at or below 88% saturation was 54 min. 11/06/21 - BiPAP titration - BiPAP [id number] with 2L/min O2 bleed in was recommended. 10/29/21 - Split PSG - Very severe obstructive sleep apnea, overall AHI 106.6 events per hour. 09/24/2021: Echo Summary 1. Technically difficult study with limited views. Regional wall motion assessment limited despite definity contrast enhancement due to poor endomyocardial border definition. 2. Left ventricular chamber dimension is normal. 3. Left ventricular systolic function is normal, estimated at 55-60%. 4. The left ventricular diastolic function is grade I diastolic dysfunction. 5. There is no increased left ventricular wall thickness. 6. There is mild aortic valve stenosis with a peak velocity of 307.88 cm/s, mean gradient of 18 mmHg, and aortic valve area of 1.7cm2. 7. The aortic valve is not well visualized. Left Ventricle Technically difficult study with limited views. Regional wall motion assessment limited despite definity contrast enhancement due to poor endomyocardial border definition. Left ventricular chamber dimension is normal. Left ventricular systolic function is normal, estimated at 55-60%. There is no increased left ventricular wall thickness. The left ventricular diastolic function is grade I diastolic dysfunction. Right Ventricle Right ventricular chamber dimension is normal. Right ventricular systolic function is normal. Left Atria Left atrial chamber dimension is normal. Right Atria Right atrial chamber dimension is normal. RVSP equals 18 01/17/2021: EXAMINATION: CT chest abdomen pelvis w con EXAM DATE: 01/17/2021 10:08 INDICATION: Follicular lymphoma, inguinal region. TECHNIQUE: Spiral CT of the chest, abdomen and pelvis was performed following intravenous injection of 100 mL Omnipaque 350. Axial, coronal and sagittal images chest, abdomen and pelvis were reviewed. Coronal maximum intensity pixel images of chest reviewed. The dose-length product (DLP) for this examination was 1990.84 mGy-cm. The exposure was tailored according to patient size (auto mA exposure control), and iterative reconstruction (ASIR) was used as additional dose reduction technique. Comparison is made to prior examination from chest CT 07/21/2020, chest abdomen pelvis CT 01/18/2020. FINDINGS: CHEST: Previously seen bibasilar pneumonia has resolved. There are some residual linear opacities consistent with scarring or atelectasis. Some scattered left apical granulomata. Aortic stent or valve, new compared to prior study. There are no pleural or pericardial effusions. Tracheobronchial tree is patent. There is no mediastinal, hilar or axillary lymphadenopathy. There is no pneumothorax. Heart normal in size. Probable left coronary arterial stent. Right-sided portacatheter. ABDOMEN PELVIS: There is right inguinal lymph node with some coarse calcifications measuring 5.2 x 2.8 cm (previously about 6 x 3 cm), mild interval decrease in size compared to previous study. This is consistent with treated lymphoma. No other pathologically enlarged lymph nodes identified. Anterior abdominal wall mesh. The liver, spleen, adrenal glands and pancreas are unremarkable. Gallbladder is unremarkable. No biliary obstruction. Portal and splenic veins are patent. Kidneys enhance symmetrically. There is no hydronephrosis. The prostate is unremarkable. The bladder is unremarkable. The appendix is not positively visualized. There is no pericecal inflammatory change to suggest appendicitis. The stomach and small bowel are unremarkable. There is expected amount of colonic stool. No free intraperitoneal gas. There are no osteoblastic or osteolytic lesions identified. Moderate to severe lumbar disc disease. IMPRESSION: 1. Enlarged right inguinal lymph node, but with mild interval decrease in size. Treated lymphoma. 2. Chronic and surgical changes. Review of Systems Constitutional: Constitutional: Reports no additional constitutional complaints Eyes: Eyes: Reports no additional eye complaints ENT: Reports system reviewed and no additional complaints, except as documented Cardiovascular: Cardiovascular: Reports no additional cardiovascular complaints Respiratory: Respiratory: Reports no additional respiratory complaints Gastrointestinal: Gastrointestinal: Reports no additional gastrointestinal complaints Musculoskeletal: Musculoskeletal: Reports no additional musculoskeletal complaints Neurologic: Reports system reviewed and no additional complaints, except as documented Psychiatric: Psychiatric: Reports no additional psychiatric complaints Endocrine: Endocrine: Reports no additional endocrine complaints Hematologic/Lymphatic: Hematologic/Lymphatic: Reports no additional hematologic/lymphatic complaints Allergic/Immunologic: Allergic/Immunologic: Reports no additional allergic/immunologic complaints Exam Const: General: cooperative, comfortable and no acute distress Orientation/consciousness: oriented to person, oriented to place and oriented to time Other: No acute distress HENMT: Head: normal to inspection Ears: hearing grossly normal bilaterally Other: Eyes: General: appearance normal, both eyes and all related structures Neck: Neck: normal visual inspection Chest: Chest palpation & inspection: normal inspection of the chest Resp: Effort & Inspection: normal respiratory effort and able to speak in complete sentences Auscultation: no crackles, no rales, no rhonchi, no wheezes and diminished lung sounds Other: Morbidly obese Cardio: Other: regular rate GI: Inspection: normal to inspection Other: no tenderness to deep palpation. Morbidly obese. Skin: General skin exam: normal color Neuro: General: oriented to person, oriented to place and oriented to time Extrem: General: normal to inspection and edema Other: improved edema Psych: Appearance: grossly normal Objective Data Vital Signs Vital Signs: Vital Signs - 24 hr 05/18/25 08:31 05/18/25 10:00 05/18/25 11:55 Temperature 36.8 C Pulse Rate 92 97 91 Respiratory Rate 20 Blood Pressure 134/67 Pulse Oximetry 92 Oxygen Delivery Oxygen Flow Rate 05/18/25 16:00 05/18/25 16:13 05/18/25 20:00 Temperature 37.0 C 36.4 C Pulse Rate 86 92 98 Respiratory Rate 20 20 Blood Pressure 130/68 148/71 H Pulse Oximetry 95 94 Oxygen Delivery Oxygen Flow Rate 05/18/25 20:00 05/18/25 20:16 05/18/25 20:23 Temperature Pulse Rate 95 95 Respiratory Rate Blood Pressure Pulse Oximetry 94 Oxygen Delivery Nasal Cannula Oxygen Flow Rate 3 05/18/25 21:06 05/19/25 00:00 05/19/25 00:38 Temperature 36.6 C Pulse Rate 92 93 85 Respiratory Rate 22 H 20 Blood Pressure 119/62 Pulse Oximetry 95 95 Oxygen Delivery BiPAP Oxygen Flow Rate 05/19/25 02:26 05/19/25 04:00 05/19/25 04:00 Temperature Pulse Rate 83 78 Respiratory Rate 20 Blood Pressure Pulse Oximetry 95 95 Oxygen Delivery BiPAP Nasal Cannula Oxygen Flow Rate 3 05/19/25 04:51 Temperature 36.6 C Pulse Rate 78 Respiratory Rate 16 Blood Pressure 117/55 L Pulse Oximetry 94 Oxygen Delivery Oxygen Flow Rate Intake/Output Intake/Output: Intake & Output 05/16/25 05/17/25 05/18/25 05/19/25 23:59 23:59 23:59 23:59 Intake Total 1920 1940 2340 Output Total 1700 550 975 Balance 220 1390 1365 Meds/Results Medications: Active Medications Generic Name Dose Route Start Last Admin Trade Name Freq PRN Reason Stop Dose Admin Acetaminophen 1,000 mg 05/14/25 23:34 05/14/25 23:56 Acetaminophen 500 Mg Tablet PO 1,000 mg Q6H PRN Administration Mild Pain (1-3) or Fever Aspirin 81 mg 05/15/25 09:00 05/18/25 08:31 Aspirin 81 Mg Enteric Tablet PO 81 mg DAILY SCHUYLER Administration Atorvastatin Calcium 80 mg 05/15/25 09:00 05/18/25 08:31 Atorvastatin 40 Mg Tablet PO 80 mg DAILY [facility] Administration Bumetanide 2 mg 05/19/25 09:00 Bumetanide 1 Mg Tablet PO BID SCHU[facility]ER Clopidogrel Bisulfate 75 mg 05/15/25 09:00 05/18/25 08:31 Clopidogrel Bisulfate 75 Mg Tablet PO 75 mg QAM [facility]ER Administration Cyanocobalamin 1,000 mcg 05/15/25 09:00 05/18/25 08:31 Cyanocobalamin 1,000 Mcg Tablet PO 1,000 mcg QAM SCHU[facility]ER Administration Dextrose 12.5 gm 05/14/25 12:48 Dextrose 50% 25 Gm/50 Ml Syringe IV PUSH PRN PRN Hypoglycemia Protocol Diclofenac Sodium 1 applic 05/14/25 21:00 05/18/25 20:26 Diclofenac Sodium 1% 100 Gm Gel (*Bkc) TOPICAL 1 applic QID [facility] Administration Diphenoxylate HCl/Atropine 1 tablet 05/14/25 19:10 Diphenoxylate/Atropine (*Crx) 2.5 Mg Tablet PO QID PRN Diarrhea Doxycycline Hyclate 100 mg 05/18/25 10:00 05/18/25 20:23 Doxycycline Hyclate 100 Mg Tablet PO 05/19/25 21:01 100 mg Q12HR [facility]ER Administration Fish Oil 1 gm 05/14/25 21:00 05/18/25 20:23 [place] 3 Polyunsat Fatty Acids 1 Gm Cap PO 1 gm Q12HR [facility]ER Administration Fluoxetine HCl 20 mg 05/14/25 21:00 05/18/25 20:23 Fluoxetine Hcl 20 Mg Capsule PO 20 mg HS SCHU[facility]ER Administration Fluticasone Propionate 1 spray 05/15/25 09:00 05/18/25 17:09 Fluticasone Propionate 0.05% Na Spr 16 Gm Btl (*Bkc) NASAL 1 spray BID [facility]ER Administration Gabapentin 600 mg 05/14/25 21:00 05/18/25 20:23 Gabapentin 300 Mg Capsule PO 600 mg Q12HR [facility] Administration Glucagon 1 mg 05/14/25 12:48 Glucagon For Inj 1 Mg Vial IM PRN PRN Hypoglycemia Protocol Glucose 15 gm 05/14/25 12:48 Glucose Oral Gel 15 Gm Of Glucse In 37.5 Gm Tube PO PRN PRN Hypoglycemia Protocol Heparin Sodium (Porcine) 5,000 units 05/16/25 14:00 05/19/25 05:21 Heparin Sodium 5,000 Units/Ml Vial SUB-Q 5,000 units Q8HR [facility]ER Administration Cefepime HCl 2 gm/ Sodium 50 mls @ 100 mls/hr 05/14/25 21:00 05/18/25 23:36 Chloride IVPB 05/20/25 21:29 Infused Q12HR [facility]ER Infusion Dextrose 1,000 mls @ 100 mls/hr 05/14/25 12:48 Dextrose 5% 1,000 Ml IVPB PRN PRN Hypoglycemia Protocol Insulin Aspart 4 - 8 units 05/14/25 17:00 05/18/25 17:09 Insulin Aspart (*Bkc) 100 Units/Ml SUB-Q 4 units TIDWM [facility]ER Administration Protocol Insulin Aspart 15 units 05/17/25 12:00 05/18/25 17:09 Insulin Aspart (*Bkc) 100 Units/Ml SUB-Q 15 units TIDWM [facility] Administration Insulin Glargine 60 units 05/14/25 21:00 05/18/25 20:24 Insulin Glargine (*Bkc) 100 Units/Ml SUB-Q 60 units HS [facility]ER Administration Loratadine 10 mg 05/15/25 09:00 05/18/25 08:31 Loratadine 10 Mg Tablet PO 10 mg DAILY [facility] Administration Metoprolol Succinate 25 mg 05/18/25 21:00 05/18/25 20:23 Metoprolol Succinate Ext Rel 25 Mg Tabcr PO 25 mg Q12HR [facility] Administration Miscellaneous Information 0 each 05/15/25 00:01 05/18/25 02:17 Dapagliflozin No Sub Generic? Ok To Sub With Jardiance? XX 06/14/25 00:00 Not Given CLARIFY [facility] Non-Formulary Medication 5 mg 05/15/25 09:00 Dapagliflozin Propanediol [Farxiga] PO 06/14/25 08:59 DAILY [facility] Pantoprazole Sodium 40 mg 05/15/25 09:00 05/18/25 08:31 Pantoprazole 40 Mg Tablet PO 40 mg QAM [facility] Administration Pramipexole Dihydrochloride 1 mg 05/14/25 21:00 05/18/25 20:24 Pramipexole 1 Mg Tablet PO 1 mg QHS [facility] Administration Quetiapine Fumarate 50 mg 05/14/25 21:00 05/18/25 20:24 Quetiapine Fumarate 25 Mg Tablet PO 50 mg HS [facility] Administration Tizanidine HCl 4 mg 05/14/25 19:10 Tizanidine Hcl 4 Mg Tablet PO QHS PRN Muscle Spasticity Trazodone HCl 50 mg 05/14/25 21:00 05/18/25 20:24 Trazodone Hcl 50 Mg Tablet PO 50 mg HS [facility]ER Administration Radiology Results: ITS Impressions Abdomen/Pelvis CT 05/14/25 11:30 IMPRESSION: 1. No acute findings. Chest X-Ray 05/16/25 09:25 IMPRESSION: 1. Persistent bibasilar atelectasis and/or airspace disease. Renal Ultrasound 05/16/25 15:06 IMPRESSION: 1. Normal kidneys without hydronephrosis. Labs Labs: Laboratory Results - last 24 hr 05/18/25 05/18/25 05/18/25 11:12 15:40 20:32 WBC RBC Hgb Hct MCV MCH MCHC RDW Plt Count MPV Immature Gran % (Auto) Neut % (Auto) Lymph % (Auto) [place] % (Auto) Eos % (Auto) Baso % (Auto) Lymph # (Auto) [place] # (Auto) Eos # (Auto) Baso # (Auto) Abs Immat Gran (auto) Absolute Neuts (auto) Absolute Nucleated RBC Nucleated RBC % Sodium Potassium Chloride Carbon Dioxide Anion Gap BUN Creatinine Estim Creat Clear Calc Estimated GFR Glucose POC Capillary Glucose 247 H 242 H 242 H Calcium Phosphorus Magnesium Total Bilirubin AST ALT Alkaline Phosphatase Total Protein Albumin 05/19/25 05/19/25 04:47 07:55 WBC 8.7 RBC 4.09 L Hgb 11.1 L Hct 36.8 L MCV 90.0 MCH 27.1 MCHC 30.2 L RDW 17.3 H Plt Count 157 MPV 10.9 H Immature Gran % (Auto) 2.9 H Neut % (Auto) 80.5 H Lymph % (Auto) 8.0 L [place] % (Auto) 5.7 Eos % (Auto) 2.4 Baso % (Auto) 0.5 Lymph # (Auto) 0.69 L [place] # (Auto) 0.5 Eos # (Auto) 0.2 Baso # (Auto) 0.0 Abs Immat Gran (auto) 0.25 H Absolute Neuts (auto) 7.0 H Absolute Nucleated RBC 0.000 Nucleated RBC % 0.0 Sodium 135 L Potassium 3.9 Chloride 105 Carbon Dioxide 26 Anion Gap 4 BUN 64 H Creatinine 2.19 H Estim Creat Clear Calc 46 Estimated GFR 30 L Glucose 261 H POC Capillary Glucose 229 H Calcium 8.5 Phosphorus 2.8 Magnesium 2.1 Total Bilirubin 0.3 AST 16 L ALT 17 Alkaline Phosphatase 62 Total Protein 5.6 L Albumin 2.8 L
[2025-05-19] MEDS: INSULIN ASPART (*BKC) 100 UNITS/ML SUB-Q ×3 (08:28→17:04)
[2025-05-19] MEDS: ATORVASTATIN 40 MG TABLET 80 MG PO (08:28)
[2025-05-19] MEDS: INSULIN ASPART (*BKC) 100 UNITS/ML 15 UNITS SUB-Q ×3 (08:28→17:04)
[2025-05-19] MEDS: OMEGA 3 POLYUNSAT FATTY ACIDS 1 GM CAP PO ×2 (08:28→20:57)
[2025-05-19 08:29] LABS: NT Pro B Type Natriuretic Pept 3670 pg/mL (19.9-100)
[2025-05-19] MEDS: PANTOPRAZOLE 40 MG TABLET PO (08:29)
[2025-05-19] MEDS: ASPIRIN 81 MG ENTERIC TABLET PO (08:29)
[2025-05-19] MEDS: DOXYCYCLINE HYCLATE 100 MG TABLET PO ×2 (08:29→20:57)
[2025-05-19] MEDS: METOPROLOL SUCCINATE EXT REL 25 MG TABCR PO ×2 (08:29→20:56)
[2025-05-19] MEDS: GABAPENTIN 300 MG CAPSULE 600 MG PO ×2 (08:29→20:56)
[2025-05-19] MEDS: LORATADINE 10 MG TABLET PO (08:29)
[2025-05-19] MEDS: CLOPIDOGREL BISULFATE 75 MG TABLET PO (08:29)
[2025-05-19] MEDS: BUMETANIDE 1 MG TABLET 2 MG PO ×2 (08:29→17:03)
[2025-05-19] MEDS: CYANOCOBALAMIN 1,000 MCG TABLET 1000 MCG PO (08:29)
[2025-05-19] MEDS: CEFEPIME 2 GM in SODIUM CHLORIDE 0.9% IV 50 ML 100 ML IVPB ×2 (08:31→22:06)
[2025-05-19] MEDS: DICLOFENAC SODIUM 1% 100 GM GEL (*BKC) 1 APPLIC TOPICAL ×4 (08:36→20:58)
[2025-05-19] MEDS: FLUTICASONE PROPIONATE 0.05% NA SPR 16 GM BTL (*BKC) 1 SPRAY NASAL (08:36)
--- NOTE | 2025-05-19 11:35 | HOMEO2EVAL ---
Evaluation was performed at [facility] Home Oxygen Evaluation RC: Home Oxygen (O2) Evaluation Start: 05/19/25 08:09 Freq: ONCE Status: Active Protocol: RPE Activity Type Activity Date Activity User E-sign Co-sign Detail Recorded Client Recorded Date Recorded By Document 05/19/25 10:20 [email or web address] [email or web address] 05/19/25 11:21 DJO Document 05/19/25 10:25 [email or web address] 05/19/25 11:21 DJO Document 05/19/25 10:30 [email or web address] 05/19/25 11:21 DJO Document 05/19/25 10:35 [email or web address] 05/19/25 11:21 DJO Document 05/19/25 10:40 [email or web address] [email or web address] 05/19/25 11:21 DJO Document 05/19/25 11:00 [email or web address] [email or web address] 05/19/25 11:21 DJO 05/19/25 05/19/25 05/19/25 10:20 10:25 10:30 Home O2 Evaluation [Oxygen] -Test Phase Resting Exercise Exercise -Oxygen Delivery Room Air Room Air Nasal Cannula -Oxygen Flow Rate (L/min) 1 [Pulse Oximetry] -Pulse Oximetry (90-100 %) 92 85 L 86 L [Pulse Rate] -Pulse Rate (60-100 beats/min) 76 96 98 [Evaluation] -Activity Tolerance [Charges] -Evaluation Charges O2 Evaluation by Pulmonary 05/19/25 05/19/25 05/19/25 10:35 10:40 11:00 Home O2 Evaluation [Oxygen] -Test Phase Exercise Exercise Resting -Oxygen Delivery Nasal Cannula Nasal Cannula Room Air -Oxygen Flow Rate (L/min) 2 3 [Pulse Oximetry] -Pulse Oximetry (90-100 %) 87 L 91 92 [Pulse Rate] -Pulse Rate (60-100 beats/min) 100 101 H 78 [Evaluation] -Activity Tolerance Poor [Charges] -Evaluation Charges
--- NOTE | 2025-05-19 11:39 | PM.PNCARD ---
Progress Note: A&P Assessment and Plan (1) Acute on chronic respiratory failure with hypoxia and hypercapnia: Code(s): J96.21 - Acute and chronic respiratory failure with hypoxia; J96.22 - Acute and chronic respiratory failure with hypercapnia Status: Acute (2) Obesity hypoventilation syndrome: Code(s): E66.2 - Morbid (severe) obesity with alveolar hypoventilation Status: Acute (3) Elevated troponin: Code(s): R79.89 - Other specified abnormal findings of blood chemistry Status: Acute (4) CAD (coronary artery disease) of artery bypass graft: Code(s): I25.810 - Atherosclerosis of coronary artery bypass graft(s) without angina pectoris Status: Acute (5) Hypertension: Code(s): I10 - Essential (primary) hypertension Status: Chronic (6) Sleep apnea: Code(s): G47.30 - Sleep apnea, unspecified Status: Chronic (7) Non-Hodgkin lymphoma: Qualifiers: Follicular lymphoma type: unspecified follicular type Lymphoma site: inguinal Non-Hodgkin lymphoma type: follicular Qualified Code(s): C82.95 - Follicular lymphoma, unspecified, lymph nodes of inguinal region and lower limb Code(s): C85.90 - Non-Hodgkin lymphoma, unspecified, unspecified site Status: Chronic (8) Morbid obesity with BMI of 60.0-69.9, adult: Code(s): E66.01 - Morbid (severe) obesity due to excess calories; Z68.44 - Body mass index [BMI] 60.0-69.9, adult Status: Chronic (9) Type 2 diabetes mellitus with hyperglycemia: Qualifiers: Diabetes mellitus intermediate insulin use: with computer terminal operator use Qualified Code(s): E11.65 - Type 2 diabetes mellitus with hyperglycemia; Z79.4 - watermelon inspector (current) use of insulin Code(s): E11.65 - Type 2 diabetes mellitus with hyperglycemia Status: Chronic (10) Cardiomyopathy: Qualifiers: Cardiomyopathy type: unspecified Qualified Code(s): I42.9 - Cardiomyopathy, unspecified Code(s): I42.9 - Cardiomyopathy, unspecified Status: Acute (11) Acute on chronic renal failure: Qualifiers: Acute renal failure type: unspecified Chronic kidney disease stage: stage 3 (moderate) Qualified Code(s): N17.9 - Acute kidney failure, unspecified; N18.3 - Chronic kidney disease, stage 3 (moderate) Code(s): N17.9 - Acute kidney failure, unspecified; N18.9 - Chronic kidney disease, unspecified Status: Acute Plan Recommendations; 1. Patient with multiple medical problems. Primarily admitted with acute respiratory failure with combination of etiologies including acute on chronic respiratory failure, morbid obesity, abnormal chest x-ray with possible pneumonia and congestive heart failure. 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 2. Elevated troponin on admission appears to be flat in trend and does not suggest acute coronary syndrome. 3. Decreased ejection fraction noted. Currently not a candidate for further diagnostic workup including cardiac catheterization as creatinine is 2.98. 4. Continue present conservative medical management. Blood pressure is 137/52 and heart rate is 90-97 per minute. 5. Current medications reviewed. Patient current aspirin 81 mg daily, atorvastatin 80 mg at bedtime, bumetanide 2 mg IV push b.i.d., clopidogrel 75 mg daily, metoprolol tartrate 12.5 mg b.i.d. will change to metoprolol succinate 25 mg b.i.d.. May change to p.o. Bumex in the morning and 2 mg p.o. b.i.d. 6. Laboratory data reviewed from 05/19/2025. Diabetes count 8.7, hemoglobin 11.1, platelets are normal. Sodium 135, potassium 3.9, BUN is 64, creatinine is 2.19. Subjective Date/time seen: 05/19/25 11:39 Interval history: Review of HPI: 74-year-old male with previous history of tower and diastolic heart failure presents with increasing shortness of breath and respiratory failure. Workup positive for pneumonia and component of congestive heart failure. Patient is morbidly obese with BMI over 67. Patient has acute on chronic respiratory failure with hypoxia being managed medically. EKG reveals normal sinus rhythm without acute ST changes. Echocardiogram demonstrated reduced ejection fraction compared to 2021 when it was 55-60% now decreased to 35%. Patient not a candidate for invasive workup as creatinine is close to 3.0. Subjective: Patient was examined at bedside. Patient appears to be comfortable. Patient is morbidly obese. Patient is moved out to the general floor and is sitting in the chair. Breathing appears to be stable on oxygen by nasal cannula. Review of Systems Review of Systems: Twelve point review of system was completed. Pertinent positive and negative findings per HPI. Exam Narrative: Patient was examined at the bedside. Patient morbidly obese and BMI is over 65 Head and neck examination is unremarkable. Neck is supple there is no JVD or carotid bruit Lungs are decreased air entry bilaterally. Heart sounds reveal normal S1-S2 no significant murmurs appreciated. Heart sounds are distant. Abdomen is obese without hepatosplenomegaly. Bowel sounds are present Extremities reveals bilateral leg edema. Neurological examination is intact. Objective Data Vital Signs Vital Signs: Vital Signs - 24 hr 05/18/25 11:55 05/18/25 16:00 05/18/25 16:13 Temperature 36.8 C 37.0 C Pulse Rate 91 86 92 Respiratory Rate 20 20 Blood Pressure 134/67 130/68 Pulse Oximetry 92 95 Oxygen Delivery Oxygen Flow Rate 05/18/25 20:00 05/18/25 20:00 05/18/25 20:16 Temperature 36.4 C Pulse Rate 98 95 Respiratory Rate 20 Blood Pressure 148/71 H Pulse Oximetry 94 94 Oxygen Delivery Nasal Cannula Oxygen Flow Rate 3 05/18/25 20:23 05/18/25 21:06 05/19/25 00:00 Temperature Pulse Rate 95 92 93 Respiratory Rate 22 H Blood Pressure Pulse Oximetry 95 Oxygen Delivery BiPAP Oxygen Flow Rate 05/19/25 00:38 05/19/25 02:26 05/19/25 04:00 Temperature 36.6 C Pulse Rate 85 83 Respiratory Rate 20 20 Blood Pressure 119/62 Pulse Oximetry 95 95 95 Oxygen Delivery BiPAP Nasal Cannula Oxygen Flow Rate 3 05/19/25 04:00 05/19/25 04:51 05/19/25 08:00 Temperature 36.6 C Pulse Rate 78 78 88 Respiratory Rate 16 16 Blood Pressure 117/55 L 127/63 Pulse Oximetry 94 91 Oxygen Delivery Oxygen Flow Rate 05/19/25 08:00 05/19/25 08:29 05/19/25 08:30 Temperature Pulse Rate 87 88 Respiratory Rate Blood Pressure Pulse Oximetry 91 Oxygen Delivery Nasal Cannula Oxygen Flow Rate 1 05/19/25 10:20 05/19/25 10:25 05/19/25 10:30 Temperature Pulse Rate 76 96 98 Respiratory Rate Blood Pressure Pulse Oximetry 92 85 L 86 L Oxygen Delivery Room Air Room Air Nasal Cannula Oxygen Flow Rate 1 05/19/25 10:35 05/19/25 10:40 05/19/25 11:00 Temperature Pulse Rate 100 101 H 78 Respiratory Rate Blood Pressure Pulse Oximetry 87 L 91 92 Oxygen Delivery Nasal Cannula Nasal Cannula Room Air Oxygen Flow Rate 2 3 Intake/Output Intake/Output: Intake & Output 05/16/25 05/17/25 05/18/25 05/19/25 23:59 23:59 23:59 23:59 Intake Total 1920 1940 2340 290 Output Total 1700 550 975 Balance 220 1390 1365 290 Meds/Results Medications: Active Medications Generic Name Dose Route Start Last Admin Trade Name Freq PRN Reason Stop Dose Admin Acetaminophen 1,000 mg 05/14/25 23:34 05/14/25 23:56 Acetaminophen 500 Mg Tablet PO 1,000 mg Q6H PRN Administration Mild Pain (1-3) or Fever Aspirin 81 mg 05/15/25 09:00 05/19/25 08:29 Aspirin 81 Mg Enteric Tablet PO 81 mg DAILY SCHU[facility]ER Administration Atorvastatin Calcium 80 mg 05/15/25 09:00 05/19/25 08:28 Atorvastatin 40 Mg Tablet PO 80 mg DAILY [facility] Administration Bumetanide 2 mg 05/19/25 09:00 05/19/25 08:29 Bumetanide 1 Mg Tablet PO 2 mg BID [facility]ER Administration Clopidogrel Bisulfate 75 mg 05/15/25 09:00 05/19/25 08:29 Clopidogrel Bisulfate 75 Mg Tablet PO 75 mg QAM [facility] Administration Cyanocobalamin 1,000 mcg 05/15/25 09:00 05/19/25 08:29 Cyanocobalamin 1,000 Mcg Tablet PO 1,000 mcg QAM [facility]ER Administration Dextrose 12.5 gm 05/14/25 12:48 Dextrose 50% 25 Gm/50 Ml Syringe IV PUSH PRN PRN Hypoglycemia Protocol Diclofenac Sodium 1 applic 05/14/25 21:00 05/19/25 08:36 Diclofenac Sodium 1% 100 Gm Gel (*Bkc) TOPICAL 1 applic QID [facility] Administration Diphenoxylate HCl/Atropine 1 tablet 05/14/25 19:10 Diphenoxylate/Atropine (*Crx) 2.5 Mg Tablet PO QID PRN Diarrhea Doxycycline Hyclate 100 mg 05/18/25 10:00 05/19/25 08:29 Doxycycline Hyclate 100 Mg Tablet PO 10/10/25 21:01 100 mg Q12HR SCHU[facility]ER Administration Fish Oil 1 gm 05/14/25 21:00 05/19/25 08:28 Dickson 3 Polyunsat Fatty Acids 1 Gm Cap PO 1 gm Q12HR [facility] Administration Fluoxetine HCl 20 mg 05/14/25 21:00 05/18/25 20:23 Fluoxetine Hcl 20 Mg Capsule PO 20 mg HS [facility]ER Administration Fluticasone Propionate 1 spray 05/15/25 09:00 05/19/25 08:36 Fluticasone Propionate 0.05% Na Spr 16 Gm Btl (*Bkc) NASAL 1 spray BID [facility] Administration Gabapentin 600 mg 05/14/25 21:00 05/19/25 08:29 Gabapentin 300 Mg Capsule PO 600 mg Q12HR [facility] Administration Glucagon 1 mg 05/14/25 12:48 Glucagon For Inj 1 Mg Vial IM PRN PRN Hypoglycemia Protocol Glucose 15 gm 05/14/25 12:48 Glucose Oral Gel 15 Gm Of Glucse In 37.5 Gm Tube PO PRN PRN Hypoglycemia Protocol Heparin Sodium (Porcine) 5,000 units 05/16/25 14:00 05/19/25 05:21 Heparin Sodium 5,000 Units/Ml Vial SUB-Q 5,000 units Q8HR [facility] Administration Cefepime HCl 2 gm/ Sodium 50 mls @ 100 mls/hr 05/14/25 21:00 05/19/25 09:01 Chloride IVPB 05/20/25 21:29 Infused Q12HR [facility] Infusion Dextrose 1,000 mls @ 100 mls/hr 05/14/25 12:48 Dextrose 5% 1,000 Ml IVPB PRN PRN Hypoglycemia Protocol Insulin Aspart 4 - 8 units 05/14/25 17:00 05/19/25 08:28 Insulin Aspart (*Bkc) 100 Units/Ml SUB-Q 4 units TIDWM [facility] Administration Protocol Insulin Aspart 15 units 05/17/25 12:00 05/19/25 08:28 Insulin Aspart (*Bkc) 100 Units/Ml SUB-Q 15 units TIDWM [facility] Administration Insulin Glargine 60 units 05/14/25 21:00 05/18/25 20:24 Insulin Glargine (*Bkc) 100 Units/Ml SUB-Q 60 units HS [facility] Administration Loratadine 10 mg 05/15/25 09:00 05/19/25 08:29 Loratadine 10 Mg Tablet PO 10 mg DAILY [facility] Administration Metoprolol Succinate 25 mg 05/18/25 21:00 05/19/25 08:29 Metoprolol Succinate Ext Rel 25 Mg Tabcr PO 25 mg Q12HR [facility] Administration Miscellaneous Information 0 each 05/15/25 00:01 05/18/25 02:17 Dapagliflozin No Sub Generic? Ok To Sub With Jardiance? XX 06/14/25 00:00 Not Given CLARIFY [facility] Non-Formulary Medication 5 mg 05/15/25 09:00 Dapagliflozin Propanediol [Farxiga] PO 06/14/25 08:59 DAILY [facility] Pantoprazole Sodium 40 mg 05/15/25 09:00 05/19/25 08:29 Pantoprazole 40 Mg Tablet PO 40 mg QAM [facility] Administration Pramipexole Dihydrochloride 1 mg 05/14/25 21:00 05/18/25 20:24 Pramipexole 1 Mg Tablet PO 1 mg QHS SCHU[facility]ER Administration Quetiapine Fumarate 50 mg 05/14/25 21:00 05/18/25 20:24 Quetiapine Fumarate 25 Mg Tablet PO 50 mg HS [facility] Administration Tizanidine HCl 4 mg 05/14/25 19:10 Tizanidine Hcl 4 Mg Tablet PO QHS PRN Muscle Spasticity Trazodone HCl 50 mg 05/14/25 21:00 05/18/25 20:24 Trazodone Hcl 50 Mg Tablet PO 50 mg HS [facility] Administration Radiology Results: ITS Impressions Abdomen/Pelvis CT 05/14/25 11:30 IMPRESSION: 1. No acute findings. Chest X-Ray 05/16/25 09:25 IMPRESSION: 1. Persistent bibasilar atelectasis and/or airspace disease. Renal Ultrasound 05/16/25 15:06 IMPRESSION: 1. Normal kidneys without hydronephrosis. Labs Labs: Laboratory Results - last 24 hr 05/18/25 05/18/25 05/18/25 11:12 15:40 20:32 WBC RBC Hgb Hct MCV MCH MCHC RDW Plt Count MPV Immature Gran % (Auto) Neut % (Auto) Lymph % (Auto) [place] % (Auto) Eos % (Auto) Baso % (Auto) Lymph # (Auto) [place] # (Auto) Eos # (Auto) Baso # (Auto) Abs Immat Gran (auto) Absolute Neuts (auto) Absolute Nucleated RBC Nucleated RBC % Sodium Potassium Chloride Carbon Dioxide Anion Gap BUN Creatinine Estim Creat Clear Calc Estimated GFR Glucose POC Capillary Glucose 247 H 242 H 242 H Calcium Phosphorus Magnesium Total Bilirubin AST ALT Alkaline Phosphatase NT-Pro-B Natriuret Pep Total Protein Albumin 05/19/25 05/19/25 04:47 07:55 WBC 8.7 RBC 4.09 L Hgb 11.1 L Hct 36.8 L MCV 90.0 MCH 27.1 MCHC 30.2 L RDW 17.3 H Plt Count 157 MPV 10.9 H Immature Gran % (Auto) 2.9 H Neut % (Auto) 80.5 H Lymph % (Auto) 8.0 L [place] % (Auto) 5.7 Eos % (Auto) 2.4 Baso % (Auto) 0.5 Lymph # (Auto) 0.69 L [place] # (Auto) 0.5 Eos # (Auto) 0.2 Baso # (Auto) 0.0 Abs Immat Gran (auto) 0.25 H Absolute Neuts (auto) 7.0 H Absolute Nucleated RBC 0.000 Nucleated RBC % 0.0 Sodium 135 L Potassium 3.9 Chloride 105 Carbon Dioxide 26 Anion Gap 4 BUN 64 H Creatinine 2.19 H Estim Creat Clear Calc 46 Estimated GFR 30 L Glucose 261 H POC Capillary Glucose 229 H Calcium 8.5 Phosphorus 2.8 Magnesium 2.1 Total Bilirubin 0.3 AST 16 L ALT 17 Alkaline Phosphatase 62 NT-Pro-B Natriuret Pep 3670 H Total Protein 5.6 L Albumin 2.8 L
--- NOTE | 2025-05-19 11:54 | PCRTNOTE ---
HOME O2 EVAL COMPLETE, 3L ACTIVITY. SET UP WITH [facility] CARE. TANK IN ROOM FOR DISCHARGE.
[2025-05-19] MEDS: PRAMIPEXOLE 1 MG TABLET PO (20:56)
[2025-05-19] MEDS: INSULIN GLARGINE (*BKC) 100 UNITS/ML 60 UNITS SUB-Q (21:06)
[2025-05-20] VITALS (10 sets, daily range): BP systolic 115–131; BP diastolic 52–65; PULSE 67–84; RESP 16–18; TEMP 36.5–36.6; O2SAT 94–98
[2025-05-20 05:19] LABS: Alveolar/Arterial O2 Gradient 119.5 mmHg; Fractional Inspired Oxygen 36 %; HCO3 ABG 24.5 mEq/l (22.0-26.0); Oxygen Content ABG 16.8 %vol (16.0-22.0); Oxygen Saturation ABG 95.6 % (95.0-100.0); PCO2 ABG 46.3 mmHg (35.0-45.0); PO2 ABG 83.5 mmHg (80.0-100.0); PO2 FiO2 Ratio Arterial Blood 2.32 %
[2025-05-20 05:23] LABS: Modified Allen's Test Pass; Site Drawn LEFT RADIAL
[2025-05-20 05:25] LABS: Liters per Minute 4.0 LPM
[2025-05-20 06:23] LABS: Hematocrit 39.3 % (42.0-52.0); Hemoglobin 12.1 g/dL (14.0-18.0); Immature Granulocyte Percent A 5.1 % (0-0.5); Lymphocytes Absolute Auto 1.10 K/mm3 (0.9-3.2); Mean Corpuscular HGB Conc 30.8 g/dl (32-36); Mean Corpuscular Hemoglobin 27.6 pg (26-34); Mean Corpuscular Volume 89.5 fl (80-100); Nucleated Red Blood Cells Absolute Auto 0.000 K/mm3 (0.0-0.012); Nucleated Red Blood Cells Perc 0.0 % (0.0-0.2); Platelet Count Result 201 k/mm3 (150-375); Red Blood Count 4.39 M/mm3 (4.6-6.20); White Blood Count 11.8 K/mm3 (4.5-10.0)
[2025-05-20 06:47] LABS: Alanine Aminotransferase 19 U/L (6-50); Albumin Level 3.0 g/dL (3.5-5.1); Alkaline Phosphatase 66 U/L (38-126); Anion Gap 6 mmol/L (4-12); Aspartate Amino Transferase 27 U/L (17-59); Bilirubin,Total 0.5 mg/dL (0.2-1.3); Blood Urea Nitrogen 58 mg/dL (9-20); Calcium 8.7 mg/dL (8.4-10.2); Carbon Dioxide 27 mmol/L (22-30); Chloride 104 mmol/L (98-107); Estimated CRCL calculation 46 ml/min; Estimated Glomerular Filt Rate 30; Glucose 191 mg/dL (65-110); Magnesium 1.8 mg/dL (1.6-2.3); Potassium 3.7 mmol/L (3.4-5.0); Sodium 137 mmol/L (137-145); Total Protein 6.1 g/dL (6.3-8.2)
--- NOTE | 2025-05-20 07:25 | P.PNPL_ITS ---
Progress Note: A&P Assessment and Plan (1) Obesity hypoventilation syndrome: Code(s): E66.2 - Morbid (severe) obesity with alveolar hypoventilation Status: Acute Assessment and Plan: Patient with morbid obesity, BMI 66.0, no evidence of chronic lung disease such as asthma or COPD. He is a never smoker. 05/15/2025 TSH 2.16, free T4 0.97 no evidence of thyroid disease. ABG 09/24/2021 was 7.12/82/ 91 on 2 L nasal cannulae. ABG on 05/15/2025 on 8 L nasal cannula 7.. Patient has been treated at home with BiPAP no rate, pressures 22/16 with 4 L bleed in. Patient has obesity hypoventilation syndrome with chronic hypercarbic respiratory failure and would benefit from noninvasive ventilation to prevent further deterioration and subsequent hospitalizations. Patient has failed BiPAP rate 16 with pressures 22/16 and 36% FIO2 with ABG 7.. In addition his recent download shows an AHI of 20.7 on BiPAP. I have initiated noninvasive ventilation with the AVAPS mode. Most recent download: Download 12/25/2023 through 03/23/2020 for through [employer]. Patient is on BiPAP spontaneous rate, pressures 22/16. Usage days greater than or equal to 4 hours is 88%. Average usage on days used is 5 hours and 49 minutes. AHI 18.2, apnea index 17.9, hypopnea index 0.3. Median leak 29.1, 95th percentile leak 62.4, maximal leak 98.5. Central apnea index 2.1. Median tidal volume 317, median respiratory rate 13. Median minute ventilation 4.8. I interpret this download as adequate compliance, high AHI, high leak, low tidal volume, low minute ventilation. Patient then had an emesis episode with the mask on and was taken off BiPAP with a blood gas on 8 L 7.. He improved and was placed back on BiPAP rate of 16, pressures 22/16 and 36% FiO2 and after 3 hours his blood gas was 7.20/70/84. When I enter the room the patient had a high leak and said the mask and machine were uncomfortable. Switched him to a noninvasive ventilator mode with the AVAPS mode and adjusted the settings to come for resulting in a rate of 20, tidal volume 550, EPAP 10, minimal inspiratory pressure 11, maximal inspiratory pressure 25, inspiratory time 1.0, rise of 5 which is the slowest and 40% FiO2. Patient said this was comfortable. 05/15/25: Plan: Patient is awake and communicative. He does doze off but says he is just tired and taking a nap. I will check an ABG after 1 hour to reassess his hypercarbic respiratory failure. Patient's ABG deteriorated after he had a vomiting episode and he may have aspirated. Currently on vancomycin, cefepime both started 05/14/2025. Flagyl and doxycycline started 05/15/2025. I will send respiratory pathogen panel, urine for Legionella, urine for pneumococcal, serum for me mycoplasma IgM. He has no history of COPD, he is a never smoker, no history of asthma. He was given Solu-Medrol 60 mg IV x1 and I do not see a need to continue this medicine. He is empirically placed on DuoNebs q.6 hours and will continue this for the time being. Patient has peripheral edema and agree with as aggressive diuresis as tolerated by his cardiac and renal systems. Currently the patient is on Bumex 2 mg IV b.i.d.. He is positive 1 L since admission. His weight today is 198 lb. Will attempt to obtain a more recent download From patient's [employer] company, [facility], to assess patient's compliance. Later in day I obtained download from [facility] 02/13/2025 through 05/13/2025. Patient is on BiPAP spontaneous rate, pressures 22/16. Usage days greater than or equal to 4 hours is 86%. Average usage on days used is 5 hours and 34 minutes. AHI 20.7. Apnea index 20.6, hypopnea index 0.1. Central apnea index 1.0. Median leak 53.0. Ninety-fifth percentile leak 92.8. Maximum leak 114.6. I interpret this download as adequate compliance, high AHI, and high leak. Later in the day patient had an echocardiogram which is a technically difficult study. LVEF was 30-35% with diastolic dysfunction. Normal right ventricular size and function, normal right atrial size, no tricuspid regurg, normal aortic valve with no aortic stenosis or aortic regurgitation. 05/16/2025: When I enter the room the patient was on noninvasive ventilation with the AVAPS mode and says that the air was going in too fast and I decreased his inspiratory time from 1.0 to 1.2. He said this was improved. He said this machine felt like his home machine. He told me he was ready to come off the machine. I placed him on 5 L nasal cannula and then decreased him to 3 L nasal cannula saturations 93%. The patient was awake stating he was thirsty and stating he was breathing normal with no cough, phlegm or hemoptysis. He denied fever, chills, rigors. He has been afebrile for 32 hours. White blood cell count 21.0, creatinine 3.18, BUN 67. Yesterday he was -410 mL and cumulative he is positive 440 since admission. His weight is 197 kg. Chest x-ray today shows small lung volumes, cardiomegaly, bibasilar interstitial alveolar infiltrates with no change since 05/15/2025. Patient wore the hospital noninvasive ventilation with the AVAPS mode settings as above with a blood gas of 7.26/57/95. Plan: Mental status has returned to baseline and patient states he is breathing at his baseline. ABG on maximal rate of 20 and tidal volume 550 remains with acute on chronic respiratory acidosis, patient is also in renal failure with creatinine of 3.18 and a serum bicarb of 28. I will continue current AVAPS settings and perform overnight oximetry on 36% FiO2 and an ABG prior to removal in the morning. Patient is positive 440 mL since admission but his creatinine now his increas ed to 3.18 and I have placed his diuretics on hold. Currently he is on vancomycin and cefepime since 05/14/2025 and doxycycline and Flagyl since 05/15/2025. MRSA swab reordered. Respiratory pathogen panel, urine Legionella, urine pneumococcal and serum mycoplasma IgM pending. 05/17/2025: Patient states he is feeling back to his baseline. Says his breathing is normal with no cough, phlegm or hemoptysis. When I enter the room he is on 4 L nasal cannula with saturations 95%. I decreased him to 1 L with saturations 93%. patient is afebrile. White blood cell count 17.9, creatinine 2.98, BUN 76, serum bicarb 26. Respiratory pathogen panel returned positive for rhino virus. Urine with E coli. Patient wore the hospital noninvasive ventilator with the AVAPS mode of 20, tidal volume 550, EPAP 10, minimal inspiratory pressure 11, maximal inspiratory pressure 25, inspiratory time 1.2, rise of 5 which is the slowest and 36% FiO2. patient said he slept well with these settings and that he felt like he was getting more air than when he was on the BiPAP. Patient had an ABG prior to removal of 7.. Patient had an overnight oximetry on these settings with recording duration of 1 hour and 20 minutes, average saturation 95%, low saturation 92%. Time with saturation less than or equal to 88% was 0 minutes. Oxygen desaturation index 1.3. Plan: Mental status has returned to baseline and patient states he is breathing normal. He did state that he developed sinus congestion prior to this hospitalization which may be consistent with rhino virus infection. ABG on maximal rate of 20 and tidal volume 550 on AVAPS improved And will continue these settings. Oxygenation adequate on 36% FiO2. I will initiate the process for home noninvasive ventilator with the AVAPS mode through [facility]. Patient is positive 1000 mL since admission And developed acute kidney injury with a creatinine of 3.18 On 05/16/2025. on 05/17/2025 Creatinine is 2.98. diuretics on hold. Currently was on vancomycin (05/14/25 through 05/16/25 or longer with DAWNA, MRSA negative) and cefepime since 05/14/2025 and doxycycline and Flagyl since 05/15. Will continue cefepime, day 3. Doxycycline and Flagyl, day 2. Urine Legionella, urine pneumococcal and serum mycoplasma IgM pending. Discussed results of echocardiogram and hospitalists will review with Cardiology. 05/18/2025: Patient wore the hospital noninvasive ventilator overnight with the AVAPS mode and 36% FiO2 and said he slept well, feels refreshed and this machine is working better than his home BiPAP machine. Overall he tells me he is breathing normal, denies cough, phlegm or hemoptysis. When I enter the room is on 3 L nasal cannula saturations 92%. White blood cell count 10.5, creatinine 2.50, BUN 71. Yesterday he was positive 1.3 L, currently he is positive 2.2 L since admission. His weight today is 201 kg. I have completed an order form for home noninvasive ventilator with the IVAPS mode through [employer]. Settings rate of 20, tidal volume 550, be minimum EPAP 5, maximum EPAP 20, minimum pressure support 6, maximum pressure support 25 and 4 L bleed in. Plan: Current noninvasive ventilator with the AVAPS mode has improved his hypercarbic respiratory failure and 4 L bleed in oxygen provides adequate oxygenation. Will continue current settings while he is in the hospital. We have initiated the process for home noninvasive ventilator with the IVAPS mode through his [employer] company [employer]. He has Medicare [facility] insurance and will wait for their approval. If he is ready to be discharged this can be set up as an outpatient and he would wear his home BiPAP no rate pressures 22/16 and 4 L bleed in pending set up of the noninvasive ventilator. Patient states he is breathing normally. He is afebrile and his leukocytosis is improving. Remains on cefepime since 05/14/2025 and doxycycline since 01/2025. Will complete 7 days of cefepime, 5 days of doxycycline. Will discontinue Flagyl today (05/15/25 through 05/18/25). S/P vancomycin (05/14/25 through 05/16/25 or longer with DAWNA, MRSA negative). Respiratory pathogen panel positive for rhino virus, mycoplasma pneumonia IgM negative and Urine Legionella, urine pneumococcal pending. 05/19/2025: Patient wore the hospital noninvasive ventilator overnight with the AVAPS mode and 36% FiO2 and tolerated this well. Overall he tells me he is breathing normal, denies cough, phlegm or hemoptysis. When I enter the room is on 3 L nasal cannula saturations 96%. I decreased him to 1 L nasal cannula and his saturations were 94%. White blood cell count 8/.7, creatinine 2.19, BUN 64. Yesterday he was positive 1.3 L, currently he is positive 3.8 L since admission. His weight today is 195 kg. [facility] will set up with a loaner home noninvasive ventilator while awaiting for [facility]/ Medicare approval. yesterday the patient walked 13 ft with a wheeled walker. Plan: [facility] will set up with a loaner home noninvasive ventilator with the above settings. I will perform overnight oximetry and an ABG prior to removal on his home machine. If patient tolerates his home machine would be ready to be discharged on 05/20/2025 from a pulmonary perspective. I will perform a home O2 assessment today. Remains on cefepime since 05/14/2025 and doxycycline since 05/15/2025. Will complete 7 days of cefepime, 5 days of doxycycline, Both to end on 05/20/2025. S/P Flagyl (05/15/25 through 05/18/25). S/P vancomycin (05/14/25 through 05/16/25 or longer with DAWNA, MRSA negative). Respiratory pathogen panel positive for rhino virus, mycoplasma pneumonia IgM negative and Urine Legionella, urine pneumococcal pending. Creatinine has improved back to his baseline and hospitalist has started Bumex 2 mg p.o. b.i.d. for diuresis. 05/19/2025: Home O2 assessment: Rest room air saturation 92%. Exercise room air saturation 85%. Exercise nasal cannula 1 L saturation 86%. Exercise nasal cannula 2 L saturation 87%. Exercise nasal cannula 3 L saturation 91%. Patient requires no oxygen at rest and 3 with activity. Notified by [employer] that they will not provide a loaner noninvasive ventilator with AVAPS-AE but they will provided a loaner BiPAP with a rate. Will set the patient up on BiPAP rate of 20, pressures 20/10 and 4 L bleed in and perform overnight oximetry and ABG prior to removal. 05/20/2025: Patient tells me he is breathing at his baseline. He has no cough, phlegm or hemoptysis. patient is on room air with saturations 96%. He is afebrile. White blood cell count 11.8, creatinine 2.18. Yesterday the patient was positive 785 mL. Cumulative he is positive 4.1 L since admission. Patient wore his home BiPAP with rate of 20, pressures 20/10 and 4 L bleed in. He said he slept pretty good. patient had an ABG prior to removal of 7.34/46/84. Patient had an overnight oximetry on these settings with recording duration of 6 hours and 55 minutes. Average saturation 93%. Low saturation 81%. Time with saturation less than or equal to 88% was 32 minutes. Oxygen desaturation index 8.9 9. Patient was me that at 4:00 a.m. his mask came off and this correlated to the time of saturation less than 88%. Otherwise saturations were predominantly in the mid 90s with to brief episodes below 88%. Plan: from a pulmonary perspective patient is ready to be discharged on these pulmonary medicines: Loratadine 10 mg p.o. q.day Flonase 1 spray each nostril twice a day no oxygen at rest and 3 L with activity When he naps or sleeps: [employer] with loaner BiPAP rate of 20, pressures 20/10 and 4 L bleed in. diuretics per Cardiology and hospitalist team. Currently the patient is on Bu paola 2 mg p.o. b.i.d. Patient is awaiting [facility] approval for noninvasive ventilator: Settings rate of 20, tidal volume 550, be minimum EPAP 5, maximum EPAP 20, minimum pressure support 6, maximum pressure support 25 and 4 L bleed in. follow-up in the Pulmonary Clinic in 4 weeks. 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 Discussed with Dr. Cardoza. Will sign off. Call with questions. Subjective Date/time seen: 05/20/25 07:25 Interval history: 05/15/2025: This is a new pulmonary consult for acute respiratory failure. 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 Regarding patient's coronary artery disease he had a PTCA of his LAD and RCA in 2009. Patient had a TAVR in March of 2020. Patient saw his patient clerical assistant Dr. Chappell on 04/13/2025 it said that he was stable with no problems from his coronary artery disease and TAVR perspective, the note said he has obstructive sleep apnea but office CPAP no medication changes were made. Regarding his follicular lymphoma stage I diagnosed in the groin on 01/25 with the ultrasounded gaudencio I did a biopsy completed chemotherapy and immuno therapy on . Saw his oncologist on 12/01/2024 with no evidence of recurrence. Followed in the Pulmonary Clinic in last seen on 03/28/2024 for obstructive sleep apnea on BiPAP and chronic respiratory failure related to obesity hypoventilation. States he is compliant with BiPAP 22/16 and 4 L bleed in. He was sleeping well and had no concerns. BiPAP was working fine. Nocturia couple times. He complained of a dry cough and was prescribed Claritin and Flonase. Very severe obstructive sleep apnea evidenced by overall AHI 106.6 on a sleep study in October 2021. This was followed by a BiPAP titration study recommending [id number] with 2L/min O2 bleed in October 2021. Download 12/25/2023 through 03/23/2020 for through [employer]. Patient is on BiPAP spontaneous rate, pressures 22/16. Usage days greater than or equal to 4 hours is 88%. Average usage on days used is 5 hours and 49 minutes. AHI 18.2, apnea index 17.9, hypopnea index 0.3. Median leak 29.1, 95th percentile leak 62.4, maximal leak 98.5. Central apnea index 2.1. Median tidal volume 317, median respiratory rate 13. Median minute ventilation 4.8. I interpret this download as adequate compliance, high AHI, high leak, low tidal volume, low minute ventilation. Recommend follow-up 6 months. 05/14/2025: Patient brought to the emergency room for altered mental status and lethargy. History obtained from the family. In the emergency department he was lethargic with a blood pressure 119/59, heart rate 113, temperature 100.2?, room air saturations 93%. He is placed on 2.5 L and his saturations were 93%. White blood cell count 90 2 minutes 18.4, creatinine 2.13, BUN 44, serum bicarb 27, BNP 1120, COVID, influenza, RSV RT PCR assay negative, UA was consistent with a UTI. Patient had a CT scan of abdomen and pelvis which showed atelectasis in the bases but no pleural effusions, focal consolidations or interstitial lung disease. patient given IV fluids and admitted to the hospital with a urinary tract infection. He was more awake and communicative when talking to the hospitalist who admitted him. Patient was placed on his BiPAP settings of 22/16 and 4 L bleed in and had an ABG of 7.37/42/74. 05/15/25: About 5 hours later the patient vomited with his mask on, and was taken off BiPAP and placed on 8 L nasal cannula the blood gas of 7.24/65/84. The patient was then placed on Airvo 40 L, 40% with blood gas of 7.21/70/72. Patient was then placed back on his BiPAP 22/16 with 36% FiO2 and after 3 hours his blood gas was 7.20/70/84. When air new entered the room the patient was awake, he knew his name, show me 2 fingers and wiggled his toes. He denied being in pain and said he had no infectious complaints prior to coming to the hospital. He denied fever, chills, phlegm production or hemoptysis. He states he wears a BiPAP machine at night but does not know his DME company. Says he uses 4 L at night bleed in. The patient was on BiPAP rate of 16 breathing 20, pressures 22/16 with a tidal volume of 531 and minute ventilation of 8.7. His leak was 107 and his saturat ions were 92. The patient said this machine was not as comfortable as his home machine and I switched him to a noninvasive ventilator mode with the AVAPS mode and adjusted the settings to come for resulting in a rate of 20, tidal volume 550, EPAP 10, minimal inspiratory pressure 11, maximal inspiratory pressure 25, inspiratory time 1.0, rise of 5 which is the slowest and 40% FiO2. Patient said this was comfortable. Later in day I obtained download from [facility] 02/13/2025 through 05/13/2025. Patient is on BiPAP spontaneous rate, pressures 22/16. Usage days greater than or equal to 4 hours is 86%. Average usage on days used is 5 hours and 34 minutes. AHI 20.7. Apnea index 20.6, hypopnea index 0.1. Central apnea index 1.0. Median leak 53.0. Ninety-fifth percentile leak 92.8. Maximum leak 114.6. I interpret this download as adequate compliance, high AHI, and high leak. Later in the day patient had an echocardiogram which is a technically dif ficult study. LVEF was 30-35% with diastolic dysfunction. Normal right ventricular size and function, normal right atrial size, no tricuspid regurg, normal aortic valve with no aortic stenosis or aortic regurgitation. 05/16/2025: When I enter the room the patient was on noninvasive ventilation with the AVAPS mode and says that the air was going in to fast and I decreased his inspiratory time from 1.0-1.2. He said this was improved. He said this machine felt like his home machine. He told me he was ready to come off the machine. I placed him on 5 L nasal cannula and then decreased him to 3 L nasal cannula saturations 93%. The patient was awake stating he was thirsty and stating he was breathing normal with no cough, phlegm or hemoptysis. He denied fever, chills, rigors. He has been afebrile for 32 hours. White blood cell count 21.0, creatinine 3.18, BUN 67. Yesterday he was -410 mL and cumulative he is positive 440 since admission. His weight is 197 kg. Chest x-ray today shows small lung volumes, cardiomegaly, bibasilar interstitial alveolar infiltrates with no change since 05/15/2025. Patient wore the hospital noninvasive ventilation with the AVAPS mode settings as above with a blood gas of 7.26/57/95. 05/17/2025: Patient states he is feeling back to his baseline. Says his breathing is normal with no cough, phlegm or hemoptysis. When I enter the room he is on 4 L nasal cannula with saturations 95%. I decreased him to 1 L with saturations 93%. patient is afebrile. White blood cell count 17.9, creatinine 2.98, BUN 76, serum bicarb 26. Respiratory pathogen panel returned positive for rhino virus. Urine with E coli. Patient wore the hospital noninvasive ventilator with the AVAPS mode of 20, tidal volume 550, EPAP 10, minimal inspiratory pressure 11, maximal inspiratory pressure 25, inspiratory time 1.2, rise of 5 which is the slowest and 36% FiO2. patient said he slept well with these settings and that he felt like he was getting more air than when he was on the BiPAP. Patient had an ABG prior to removal of 7.. Patient had an overnight oximetry on these settings with recording duration of 1 hour and 20 minutes, average saturation 95%, low saturation 92%. Time with saturation less than or equal to 88% was 0 minutes. Oxygen desaturation index 1.3. 05/18/2025: Patient wore the hospital noninvasive ventilator overnight with the AVAPS mode and 36% FiO2 and said he slept well, feels refreshed and this machine is working better than his home BiPAP machine. Overall he tells me he is breathing normal, denies cough, phlegm or hemoptysis. When I enter the room is on 3 L nasal cannula saturations 92%. White blood cell count 10.5, creatinine 2.50, BUN 71. Yesterday he was positive 1.3 L, currently he is positive 2.2 L since admission. His weight today is 201 kg. I have completed an order form for home noninvasive ventilator with the IVAPS mode through [employer]. Settings rate of 20, tidal volume 550, be minimum EPAP 5, maximum EPAP 20, minimum pressure support 6, maximum pressure support 25 and 4 L bleed in. 05/19/2025: Patient wore the hospital noninvasive ventilator overnight with the AVAPS mode and 36% FiO2 and tolerated this well. Overall he tells me he is breathing normal, denies cough, phlegm or hemoptysis. When I enter the room is on 3 L nasal cannula saturations 96%. I decreased him to 1 L nasal cannula and his saturations were 94%. White blood cell count 8/.7, creatinine 2.19, BUN 64. Yesterday he was positive 1.3 L, currently he is positive 3.8 L since admission. His weight today is 195 kg. [facility] will set up with a loaner home noninvasive ventilator while awaiting for [facility]/ Medicare approval. yesterday the patient walked 13 ft with a wheeled walker. 05/19/2025: Home O2 assessment: Rest room air saturation 92%. Exercise room air saturation 85%. Exercise nasal cannula 1 L saturation 86%. Exercise nasal cannula 2 L saturation 87%. Exercise nasal cannula 3 L saturation 91%. Patient requires no oxygen at rest and 3 with activity. Notified by [employer] that they will not provide a loaner noninvasive ventilator with AVAPS-AE but they will provided a loaner BiPAP with a rate. Will set the patient up on BiPAP rate of 20, pressures 20/10 and 4 L bleed in and perform overnight oximetry and ABG prior to removal. 05/20/2025: Patient tells me he is breathing at his baseline. He has no cough, phlegm or hemoptysis. patient is on room air with saturations 96%. He is afebrile. White blood cell count 11.8, creatinine 2.18. Yesterday the patient was positive 785 mL. Cumulative he is positive 4.1 L since admission. Patient wore his home BiPAP with rate of 20, pressures 20/10 and 4 L bleed in. He said he slept pretty good. patient had an ABG prior to removal of 7.34/46/84. Patient had an overnight oximetry on these settings with recording duration of 6 hours and 55 minutes. Average saturation 93%. Low saturation 81%. Time with saturation less than or equal to 88% was 32 minutes. Oxygen desaturation index 8.9 9. Patient was me that at 4:00 a.m. his mask came off and this correlated to the time of saturation less than 88%. Otherwise saturations were predominantly in the mid 90s with to brief episodes below 88%. DATA: 05/19/25: home O2 assessment: Rest room air saturation 92%. Exercise room air saturation 85%. Exercise nasal cannula 1 L saturation 86%. Exercise nasal cannula 2 L saturation 87%. exercise nasal cannula 3 L saturation 91%. Patient requires no oxygen at rest and 1 L with activity 05/14/25: CT ABDOMEN AND PELVIS WITHOUT CONTRAST Clinical History: septic; UTI, repeated with tighter straps and repositioning Comparison: 09/24/2021 Technique: Unenhanced axial images lung bases to symphysis pubis Coronal, sagittal reformats CT images acquired with automatic exposure control for dose reduction DLP: 3856 mGy-cm Findings: Without intravenous contrast, sensitivity for detecting visceral parenchymal abnormalities decreased. Portions of left hemiabdomen excluded from images Lung bases: Dependent atelectasis. Visualized heart and pericardium: Coronary artery calcification. Liver: Enlarged. Steatosis. Gallbladder: Removed. Spleen: Unremarkable. Pancreas: Atrophy. Adrenal glands: Unremarkable. Kidneys: Right kidney- No hydronephrosis. No renal stones. Left kidney- No hydronephrosis. No renal stones. Distal esophagus/stomach: Unremarkable. Small bowel loops: Normal caliber and wall thickness. Colon: Diverticula. Normal caliber and wall thickness. Appendix not seen. Nodes: Prominent partially calcified nodes right groin. Peritoneum: No ascites. No free intraperitoneal air. Urinary bladder: Mild wall thickening but under distended. Prostate: Unremarkable. Bones: No acute bony abnormality. Soft tissues: Midline abdominal wall hernia mesh. Unopacified abdominal aorta: No aneurysmal dilatation. IMPRESSION: 1. No acute findings. 03/05/22 - Overnight oximetry on BiPAP 22/16 with 3L/min O2 - Time spent at or b elow 88% saturation was 33 min. He was advised to increase liter flow to 4L/min. 02/11/22 - Overnight oximetry on BiPAP 22/16 with 2L/min bleed in - time spent at or below 88% saturation was 54 min. 11/06/21 - BiPAP titration - BiPAP [id number] with 2L/min O2 bleed in was recommended. 10/29/21 - Split PSG - Very severe obstructive sleep apnea, overall AHI 106.6 events per hour. 09/24/2021: Echo Summary 1. Technically difficult study with limited views. Regional wall motion assessment limited despite definity contrast enhancement due to poor endomyocardial border definition. 2. Left ventricular chamber dimension is normal. 3. Left ventricular systolic function is normal, estimated at 55-60%. 4. The left ventricular diastolic function is grade I diastolic dysfunction. 5. There is no increased left ventricular wall thickness. 6. There is mild aortic valve stenosis with a peak velocity of 307.88 cm/s, mean gradient of 18 mmHg, and aortic valve area of 1.7cm2. 7. The aortic valve is not well visualized. Left Ventricle Technically difficult study with limited views. Regional wall motion assessment limited despite definity contrast enhancement due to poor endomyocardial border definition. Left ventricular chamber dimension is normal. Left ventricular systolic function is normal, estimated at 55-60%. There is no increased left ventricular wall thickness. The left ventricular diastolic function is grade I diastolic dysfunction. Right Ventricle Right ventricular chamber dimension is normal. Right ventricular systolic function is normal. Left Atria Left atrial chamber dimension is normal. Right Atria Right atrial chamber dimension is normal. RVSP equals 18 01/17/2021: EXAMINATION: CT chest abdomen pelvis w con EXAM DATE: 01/17/2021 10:08 INDICATION: Follicular lymphoma, inguinal region. TECHNIQUE: Spiral CT of the chest, abdomen and pelvis was performed following intravenous injection of 100 mL Omnipaque 350. Axial, coronal and sagittal images chest, abdomen and pelvis were reviewed. Coronal maximum intensity pixel images of chest reviewed. The dose-length product (DLP) for this examination was 1990.84 mGy-cm. The exposure was tailored according to patient size (auto mA exposure control), and iterative reconstruction (ASIR) was used as additional dose reduction technique. Comparison is made to prior examination from chest CT 07/21/2020, chest abdomen pelvis CT 01/18/2020. FINDINGS: CHEST: Previously seen bibasilar pneumonia has resolved. There are some residual linear opacities consistent with scarring or atelectasis. Some scattered left apical granulomata. Aortic stent or valve, new compared to prior study. There are no pleural or pericardial effusions. Tracheobronchial tree is patent. There is no mediastinal, hilar or axillary lymphadenopathy. There is no pneumothorax. Heart normal in size. Probable left coronary arterial stent. Right-sided portacatheter. ABDOMEN PELVIS: There is right inguinal lymph node with some coarse calcifications measuring 5.2 x 2.8 cm (previously about 6 x 3 cm), mild interval decrease in size compared to previous study. This is consistent with treated lymphoma. No other pathologically enlarged lymph nodes identified. Anterior abdominal wall mesh. The liver, spleen, adrenal glands and pancreas are unremarkable. Gallbladder is unremarkable. No biliary obstruction. Portal and splenic veins are patent. Kidneys enhance symmetrically. There is no hydronephrosis. The prostate is unremarkable. The bladder is unremarkable. The appendix is not positively visualized. There is no pericecal inflammatory change to suggest appendicitis. The stomach and small bowel are unremarkable. There is expected amount of colonic stool. No free intraperitoneal gas. There are no osteoblastic or osteolytic lesions identified. Moderate to severe lumbar disc disease. IMPRESSION: 1. Enlarged right inguinal lymph node, but with mild interval decrease in size. Treated lymphoma. 2. Chronic and surgical changes. Review of Systems Constitutional: Constitutional: Reports no additional constitutional complaints Eyes: Eyes: Reports no additional eye complaints ENT: Reports system reviewed and no additional complaints, except as documented Cardiovascular: Cardiovascular: Reports no additional cardiovascular complaints Respiratory: Respiratory: Reports no additional respiratory complaints Gastrointestinal: Gastrointestinal: Reports no additional gastrointestinal complaints Musculoskeletal: Musculoskeletal: Reports no additional musculoskeletal complaints Neurologic: Reports system reviewed and no additional complaints, except as documented Psychiatric: Psychiatric: Reports no additional psychiatric complaints Endocrine: Endocrine: Reports no additional endocrine complaints Hematologic/Lymphatic: Hematologic/Lymphatic: Reports no additional hematologic/lymphatic complaints Allergic/Immunologic: Allergic/Immunologic: Reports no additional allergic/immunologic complaints Exam Const: General: cooperative, comfortable and no acute distress Orientation/consciousness: oriented to person, oriented to place and oriented to time Other: No acute distress HENMT: Head: normal to inspection Ears: hearing grossly normal bilaterally Other: Eyes: General: appearance normal, both eyes and all related structures Neck: Neck: normal visual inspection Chest: Chest palpation & inspection: normal inspection of the chest Resp: Effort & Inspection: normal respiratory effort and able to speak in complete sentences Auscultation: no crackles, no rales, no rhonchi, no wheezes and diminished lung sounds Other: Morbidly obese Cardio: Other: regular rate GI: Inspection: normal to inspection Other: no tenderness to deep palpation. Morbidly obese. Skin: General skin exam: normal color Neuro: General: oriented to person, oriented to place and oriented to time Extrem: General: normal to inspection and edema Other: positive edema Psych: Appearance: grossly normal Objective Data Vital Signs Vital Signs: Vital Signs - 24 hr 05/19/25 08:00 05/19/25 08:00 05/19/25 08:29 Temperature Pulse Rate 88 87 88 Respiratory Rate 16 Blood Pressure 127/63 Pulse Oximetry 91 Oxygen Delivery Oxygen Flow Rate 05/19/25 08:30 05/19/25 10:20 05/19/25 10:25 Temperature Pulse Rate 76 96 Respiratory Rate Blood Pressure Pulse Oximetry 91 92 85 L Oxygen Delivery Nasal Cannula Room Air Room Air Oxygen Flow Rate 1 05/19/25 10:30 05/19/25 10:35 05/19/25 10:40 Temperature Pulse Rate 98 100 101 H Respiratory Rate Blood Pressure Pulse Oximetry 86 L 87 L 91 Oxygen Delivery Nasal Cannula Nasal Cannula Nasal Cannula Oxygen Flow Rate 1 2 3 05/19/25 11:00 05/19/25 11:15 05/19/25 11:50 Temperature Pulse Rate 78 79 Respiratory Rate Blood Pressure 129/59 L Pulse Oximetry 92 93 93 Oxygen Delivery Room Air Room Air Oxygen Flow Rate 05/19/25 12:00 05/19/25 15:16 05/19/25 16:00 Temperature 36.6 C Pulse Rate 77 76 73 Respiratory Rate 18 Blood Pressure 147/77 H Pulse Oximetry 93 Oxygen Delivery Oxygen Flow Rate 05/19/25 20:00 05/19/25 20:40 05/19/25 20:50 Temperature 36.3 C L Pulse Rate 81 81 Respiratory Rate 14 Blood Pressure 139/69 Pulse Oximetry 97 Oxygen Delivery Room Air Oxygen Flow Rate 05/19/25 20:56 05/19/25 21:26 05/19/25 22:00 Temperature 36.6 C Pulse Rate 81 83 Respiratory Rate 18 Blood Pressure 132/59 L Pulse Oximetry 92 92 Oxygen Delivery Room Air Oxygen Flow Rate 05/19/25 22:15 05/20/25 00:00 05/20/25 04:00 Temperature Pulse Rate 75 73 67 Respiratory Rate Blood Pressure Pulse Oximetry 92 Oxygen Delivery Oxygen Flow Rate 05/20/25 06:00 Temperature 36.5 C Pulse Rate 78 Respiratory Rate 16 Blood Pressure 131/65 Pulse Oximetry 94 Oxygen Delivery Oxygen Flow Rate Intake/Output Intake/Output: Intake & Output 05/17/25 05/18/25 05/19/25 05/20/25 23:59 23:59 23:59 23:59 Intake Total 1940 2340 1360 300 Output Total 550 975 575 800 Balance 1390 1365 785 -500 Meds/Results Medications: Active Medications Generic Name Dose Route Start Last Admin Trade Name Freq PRN Reason Stop Dose Admin Acetaminophen 1,000 mg 05/14/25 23:34 05/14/25 23:56 Acetaminophen 500 Mg Tablet PO 1,000 mg Q6H PRN Administration Mild Pain (1-3) or Fever Aspirin 81 mg 05/15/25 09:00 05/19/25 08:29 Aspirin 81 Mg Enteric Tablet PO 81 mg DAILY [facility]ER Administration Atorvastatin Calcium 80 mg 05/15/25 09:00 05/19/25 08:28 Atorvastatin 40 Mg Tablet PO 80 mg DAILY [facility] Administration Bumetanide 2 mg 05/19/25 09:00 05/19/25 17:03 Bumetanide 1 Mg Tablet PO 2 mg BID [facility] Administration Clopidogrel Bisulfate 75 mg 05/15/25 09:00 05/19/25 08:29 Clopidogrel Bisulfate 75 Mg Tablet PO 75 mg QAM [facility] Administration Cyanocobalamin 1,000 mcg 05/15/25 09:00 05/19/25 08:29 Cyanocobalamin 1,000 Mcg Tablet PO 1,000 mcg QAM [facility] Administration Dextrose 12.5 gm 05/14/25 12:48 Dextrose 50% 25 Gm/50 Ml Syringe IV PUSH PRN PRN Hypoglycemia Protocol Diclofenac Sodium 1 applic 05/14/25 21:00 05/19/25 20:58 Diclofenac Sodium 1% 100 Gm Gel (*Bkc) TOPICAL 1 applic QID [facility] Administration Diphenoxylate HCl/Atropine 1 tablet 05/14/25 19:10 Diphenoxylate/Atropine (*Crx) 2.5 Mg Tablet PO QID PRN Diarrhea Fish Oil 1 gm 05/14/25 21:00 05/19/25 20:57 [facility] 3 Polyunsat Fatty Acids 1 Gm Cap PO 1 gm Q12HR [facility] Administration Fluoxetine HCl 20 mg 05/14/25 21:00 05/19/25 20:58 Fluoxetine Hcl 20 Mg Capsule PO 20 mg HS [facility] Administration Fluticasone Propionate 1 spray 05/15/25 09:00 05/19/25 17:04 Fluticasone Propionate 0.05% Na Spr 16 Gm Btl (*Bkc) NASAL Not Given BID [facility] Gabapentin 600 mg 05/14/25 21:00 05/19/25 20:56 Gabapentin 300 Mg Capsule PO 600 mg Q12HR [facility] Administration Glucagon 1 mg 05/14/25 12:48 Glucagon For Inj 1 Mg Vial IM PRN PRN Hypoglycemia Protocol Glucose 15 gm 05/14/25 12:48 Glucose Oral Gel 15 Gm Of Glucse In 37.5 Gm Tube PO PRN PRN Hypoglycemia Protocol Heparin Sodium (Porcine) 5,000 units 05/16/25 14:00 05/20/25 05:47 Heparin Sodium 5,000 Units/Ml Vial SUB-Q 5,000 units Q8HR [facility] Administration Cefepime HCl 2 gm/ Sodium 50 mls @ 100 mls/hr 05/14/25 21:00 05/19/25 22:36 Chloride IVPB 05/20/25 21:29 Infused Q12HR [facility] Infusion Dextrose 1,000 mls @ 100 mls/hr 05/14/25 12:48 Dextrose 5% 1,000 Ml IVPB PRN PRN Hypoglycemia Protocol Insulin Aspart 4 - 8 units 05/14/25 17:00 05/19/25 17:04 Insulin Aspart (*Bkc) 100 Units/Ml SUB-Q 5 units TIDWM [facility] Administration Protocol Insulin Aspart 15 units 05/17/25 12:00 05/19/25 17:04 Insulin Aspart (*Bkc) 100 Units/Ml SUB-Q 15 units TIDWM [facility] Administration Insulin Glargine 60 units 05/14/25 21:00 05/19/25 21:06 Insulin Glargine (*Bkc) 100 Units/Ml SUB-Q 60 units HS [facility] Administration Loratadine 10 mg 05/15/25 09:00 05/19/25 08:29 Loratadine 10 Mg Tablet PO 10 mg DAILY [facility] Administration Metoprolol Succinate 25 mg 05/18/25 21:00 05/19/25 20:56 Metoprolol Succinate Ext Rel 25 Mg Tabcr PO 25 mg Q12HR [facility] Administration Miscellaneous Information 0 each 05/15/25 00:01 05/18/25 02:17 Dapagliflozin No Sub Generic? Ok To Sub With Jardiance? XX 06/14/25 00:00 Not Given CLARIFY [facility] Non-Formulary Medication 5 mg 05/15/25 09:00 Dapagliflozin Propanediol [Farxiga] PO 06/14/25 08:59 DAILY [facility] Pantoprazole Sodium 40 mg 05/15/25 09:00 05/19/25 08:29 Pantoprazole 40 Mg Tablet PO 40 mg QAM [facility] Administration Pramipexole Dihydrochloride 1 mg 05/14/25 21:00 05/19/25 20:56 Pramipexole 1 Mg Tablet PO 1 mg QHS [facility] Administration Quetiapine Fumarate 50 mg 05/14/25 21:00 05/19/25 20:56 Quetiapine Fumarate 25 Mg Tablet PO 50 mg HS [facility] Administration Tizanidine HCl 4 mg 05/14/25 19:10 Tizanidine Hcl 4 Mg Tablet PO QHS PRN Muscle Spasticity Trazodone HCl 50 mg 05/14/25 21:00 05/19/25 20:57 Trazodone Hcl 50 Mg Tablet PO 50 mg HS [facility] Administration Radiology Results: ITS Impressions Abdomen/Pelvis CT 05/14/25 11:30 IMPRESSION: 1. No acute findings. Chest X-Ray 05/16/25 09:25 IMPRESSION: 1. Persistent bibasilar atelectasis and/or airspace disease. Renal Ultrasound 05/16/25 15:06 IMPRESSION: 1. Normal kidneys without hydronephrosis. Labs Labs: Laboratory Results - last 24 hr 05/19/25 05/19/25 05/19/25 04:47 07:55 11:41 WBC RBC Hgb Hct MCV MCH MCHC RDW Plt Count MPV Immature Gran % (Auto) Neut % (Auto) Lymph % (Auto) [place] % (Auto) Eos % (Auto) Baso % (Auto) Lymph # (Auto) [place] # (Auto) Eos # (Auto) Baso # (Auto) Abs Immat Gran (auto) Absolute Neuts (auto) Absolute Nucleated RBC Nucleated RBC % Puncture Site ABG pH ABG pCO2 ABG pO2 ABG PO2/FiO2 Ratio ABG HCO3 ABG O2 Saturation ABG O2 Content ABG Base Excess A-a Gradient Oxyhemoglobin Total Hemoglobin O2 Delivery Device O2 Liters/Min FiO2 Sodium Potassium Chloride Carbon Dioxide Anion Gap BUN Creatinine Estim Creat Clear Calc Estimated GFR Glucose POC Capillary Glucose 229 H 237 H Calcium Phosphorus Magnesium Total Bilirubin AST ALT Alkaline Phosphatase NT-Pro-B Natriuret Pep 3670 H Total Protein Albumin 05/19/25 05/19/25 05/20/25 16:55 20:52 05:07 WBC RBC Hgb Hct MCV MCH MCHC RDW Plt Count MPV Immature Gran % (Auto) Neut % (Auto) Lymph % (Auto) [place] % (Auto) Eos % (Auto) Baso % (Auto) Lymph # (Auto) [place] # (Auto) Eos # (Auto) Baso # (Auto) Abs Immat Gran (auto) Absolute Neuts (auto) Absolute Nucleated RBC Nucleated RBC % Puncture Site Left radial ABG pH 7.341 L ABG pCO2 46.3 H ABG pO2 83.5 ABG PO2/FiO2 Ratio 2.32 ABG HCO3 24.5 ABG O2 Saturation 95.6 ABG O2 Content 16.8 ABG Base Excess -1.5 A-a Gradient 119.5 Oxyhemoglobin 94.2 Total Hemoglobin 12.6 O2 Delivery Device Other device O2 Liters/Min 4.0 FiO2 36 Sodium Potassium Chloride Carbon Dioxide Anion Gap BUN Creatinine Estim Creat Clear Calc Estimated GFR Glucose POC Capillary Glucose 275 H 232 H Calcium Phosphorus Magnesium Total Bilirubin AST ALT Alkaline Phosphatase NT-Pro-B Natriuret Pep Total Protein Albumin 05/20/25 06:17 WBC 11.8 H RBC 4.39 L Hgb 12.1 L Hct 39.3 L MCV 89.5 MCH 27.6 MCHC 30.8 L RDW 17.4 H Plt Count 201 MPV 10.3 Immature Gran % (Auto) 5.1 H Neut % (Auto) 76.7 H Lymph % (Auto) 9.3 L [place] % (Auto) 5.2 Eos % (Auto) 3.0 Baso % (Auto) 0.7 Lymph # (Auto) 1.10 [place] # (Auto) 0.6 Eos # (Auto) 0.4 H Baso # (Auto) 0.1 Abs Immat Gran (auto) 0.60 H Absolute Neuts (auto) 9.0 H Absolute Nucleated RBC 0.000 Nucleated RBC % 0.0 Puncture Site ABG pH ABG pCO2 ABG pO2 ABG PO2/FiO2 Ratio ABG HCO3 ABG O2 Saturation ABG O2 Content ABG Base Excess A-a Gradient Oxyhemoglobin Total Hemoglobin O2 Delivery Device O2 Liters/Min FiO2 Sodium 137 Potassium 3.7 Chloride 104 Carbon Dioxide 27 Anion Gap 6 BUN 58 H Creatinine 2.18 H Estim Creat Clear Calc 46 Estimated GFR 30 L Glucose 191 H POC Capillary Glucose Calcium 8.7 Phosphorus 2.6 Magnesium 1.8 Total Bilirubin 0.5 AST 27 ALT 19 Alkaline Phosphatase 66 NT-Pro-B Natriuret Pep Total Protein 6.1 L Albumin 3.0 L
--- NOTE | 2025-05-20 07:40 | PM.IMPN ---
Progress Note: A&P Assessment and Plan (1) Sepsis: Code(s): A41.9 - Sepsis, unspecified organism Status: Acute Assessment and Plan: (2) Elevated troponin: Code(s): R79.89 - Other specified abnormal findings of blood chemistry Status: Acute (3) Acute and chronic respiratory failure ([id number]): Code(s): J96.20 - Acute and chronic respiratory failure, unspecified whether with hypoxia or hypercapnia Status: Acute (4) Altered mental status: Code(s): R41.82 - Altered mental status, unspecified Status: Acute Assessment and Plan: Resolved Likely secondary to aspiration pneumonia, acute hypoxic hypercapnic respiratory failure secondary to obesity hypoventilation syndrome and systolic heart failure (5) Acute UTI: Code(s): N39.0 - Urinary tract infection, site not specified Status: Acute Assessment and Plan: Completed IV antibiotics (6) Hypomagnesemia: Code(s): E83.42 - Hypomagnesemia Status: Acute Assessment and Plan: Repleted as needed (7) Congestive heart failure: Qualifiers: Heart failure chronicity: acute on chronic Heart failure type: systolic Qualified Code(s): I50.23 - Acute on chronic systolic (congestive) heart failure Code(s): I50.9 - Heart failure, unspecified Status: Acute Assessment and Plan: -Compatible was systolic heart failure in the setting of coronary artery disease. EF 30-35% - on room air at rest, and 3 L NC on exertion, BIPAP at night for obesity hypoventilation syndrome -IV Bumex switched to p.o. -continue Bumex 2 mg b.i.d., daily standing weight, strict I&Os, Na <2g daily -continue metoprolol succinate and farxiga -D/w Cardiology to initiate Entresto for GDMT -start Entresto 24mg /25 mg BID -continue Asa/plavix/statin (8) CKD (chronic kidney disease): Code(s): N18.9 - Chronic kidney disease, unspecified Status: Chronic Assessment and Plan: -Stable/chronic renal function noted on admit -renal function back to baseline -renal ultrasound with normal kidney size and without evidence of hydronephrosis -daily bmp (9) Type 2 diabetes mellitus with hyperglycemia: Qualifiers: Diabetes mellitus penitentiary insulin use: with penitentiary use Qualified Code(s): E11.65 - Type 2 diabetes mellitus with hyperglycemia; 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 Ready to d/sandra from Pulm standing point Changed to AVAPS setting at night here and setting being changed for discharge Plan DVT prophylaxis heparin subQ Disposition: PT OT to see Time Spent With Patient Time: 45 minutes Subjective Date/time seen: 05/20/25 07:40 Interval history: he is doing better. No chest pain. Out of bed ambulation and PT/OT Review of Systems Review of Systems: All systems reviewed & are unremarkable except as noted in HPI and below Exam Narrative: APPEARANCE: Morbidly obese EYES: EOMI HEENT: Normocephalic, atraumatic, OMM RESPIRATORY: No respiratory distress Clear to auscultation bilaterally with no rhonchi wheezing or rales. CARDIOVASCULAR: RRR, S1 and S2 without murmurs rubs or gallops. ABDOMINAL: Soft, nontender, nondistended, no rebound or guarding MSK: Significant swelling in the lower extremities NEURO: Awake and alert. Following commands, speech normal, no focal deficits SKIN:: Warm, dry. No rashes lesions or abrasions PSYCHIATRIC: Normal affect/mood Objective Data Vital Signs Vital Signs: Vital Signs - 24 hr 05/19/25 08:00 05/19/25 08:00 05/19/25 08:29 Temperature Pulse Rate 88 87 88 Respiratory Rate 16 Blood Pressure 127/63 Pulse Oximetry 91 Oxygen Delivery Oxygen Flow Rate 05/19/25 08:30 05/19/25 10:20 05/19/25 10:25 Temperature Pulse Rate 76 96 Respiratory Rate Blood Pressure Pulse Oximetry 91 92 85 L Oxygen Delivery Nasal Cannula Room Air Room Air Oxygen Flow Rate 1 05/19/25 10:30 05/19/25 10:35 05/19/25 10:40 Temperature Pulse Rate 98 100 101 H Respiratory Rate Blood Pressure Pulse Oximetry 86 L 87 L 91 Oxygen Delivery Nasal Cannula Nasal Cannula Nasal Cannula Oxygen Flow Rate 1 2 3 05/19/25 11:00 05/19/25 11:15 05/19/25 11:50 Temperature Pulse Rate 78 79 Respiratory Rate Blood Pressure 129/59 L Pulse Oximetry 92 93 93 Oxygen Delivery Room Air Room Air Oxygen Flow Rate 05/19/25 12:00 05/19/25 15:16 05/19/25 16:00 Temperature 36.6 C Pulse Rate 77 76 73 Respiratory Rate 18 Blood Pressure 147/77 H Pulse Oximetry 93 Oxygen Delivery Oxygen Flow Rate 05/19/25 20:00 05/19/25 20:40 05/19/25 20:50 Temperature 36.3 C L Pulse Rate 81 81 Respiratory Rate 14 Blood Pressure 139/69 Pulse Oximetry 97 Oxygen Delivery Room Air Oxygen Flow Rate 05/19/25 20:56 05/19/25 21:26 05/19/25 22:00 Temperature 36.6 C Pulse Rate 81 83 Respiratory Rate 18 Blood Pressure 132/59 L Pulse Oximetry 92 92 Oxygen Delivery Room Air Oxygen Flow Rate 05/19/25 22:15 05/20/25 00:00 05/20/25 04:00 Temperature Pulse Rate 75 73 67 Respiratory Rate Blood Pressure Pulse Oximetry 92 Oxygen Delivery Oxygen Flow Rate 05/20/25 06:00 Temperature 36.5 C Pulse Rate 78 Respiratory Rate 16 Blood Pressure 131/65 Pulse Oximetry 94 Oxygen Delivery Oxygen Flow Rate Intake/Output Intake/Output: Intake & Output 05/17/25 05/18/25 05/19/25 05/20/25 23:59 23:59 23:59 23:59 Intake Total 1940 2340 1360 300 Output Total 550 975 575 800 Balance 1390 1365 785 -500 Meds/Results Medications: Active Medications Generic Name Dose Route Start Last Admin Trade Name Freq PRN Reason Stop Dose Admin Acetaminophen 1,000 mg 05/14/25 23:34 05/14/25 23:56 Acetaminophen 500 Mg Tablet PO 1,000 mg Q6H PRN Administration Mild Pain (1-3) or Fever Aspirin 81 mg 05/15/25 09:00 05/19/25 08:29 Aspirin 81 Mg Enteric Tablet PO 81 mg DAILY SCHUYLER Administration Atorvastatin Calcium 80 mg 05/15/25 09:00 05/19/25 08:28 Atorvastatin 40 Mg Tablet PO 80 mg DAILY SCHU[facility]ER Administration Bumetanide 2 mg 05/19/25 09:00 05/19/25 17:03 Bumetanide 1 Mg Tablet PO 2 mg BID SCHU[facility]ER Administration Clopidogrel Bisulfate 75 mg 05/15/25 09:00 05/19/25 08:29 Clopidogrel Bisulfate 75 Mg Tablet PO 75 mg QAM SCHU[facility]ER Administration Cyanocobalamin 1,000 mcg 05/15/25 09:00 05/19/25 08:29 Cyanocobalamin 1,000 Mcg Tablet PO 1,000 mcg QAM SCHU[facility]ER Administration Dextrose 12.5 gm 05/14/25 12:48 Dextrose 50% 25 Gm/50 Ml Syringe IV PUSH PRN PRN Hypoglycemia Protocol Diclofenac Sodium 1 applic 05/14/25 21:00 05/19/25 20:58 Diclofenac Sodium 1% 100 Gm Gel (*Bkc) TOPICAL 1 applic QID [facility]ER Administration Diphenoxylate HCl/Atropine 1 tablet 05/14/25 19:10 Diphenoxylate/Atropine (*Crx) 2.5 Mg Tablet PO QID PRN Diarrhea Fish Oil 1 gm 05/14/25 21:00 05/19/25 20:57 [place] 3 Polyunsat Fatty Acids 1 Gm Cap PO 1 gm Q12HR [facility]ER Administration Fluoxetine HCl 20 mg 05/14/25 21:00 05/19/25 20:58 Fluoxetine Hcl 20 Mg Capsule PO 20 mg HS SCHU[facility]ER Administration Fluticasone Propionate 1 spray 05/15/25 09:00 05/19/25 17:04 Fluticasone Propionate 0.05% Na Spr 16 Gm Btl (*Bkc) NASAL Not Given BID SCHUYLRE Gabapentin 600 mg 05/14/25 21:00 05/19/25 20:56 Gabapentin 300 Mg Capsule PO 600 mg Q12HR [facility]ER Administration Glucagon 1 mg 05/14/25 12:48 Glucagon For Inj 1 Mg Vial IM PRN PRN Hypoglycemia Protocol Glucose 15 gm 05/14/25 12:48 Glucose Oral Gel 15 Gm Of Glucse In 37.5 Gm Tube PO PRN PRN Hypoglycemia Protocol Heparin Sodium (Porcine) 5,000 units 05/16/25 14:00 05/20/25 05:47 Heparin Sodium 5,000 Units/Ml Vial SUB-Q 5,000 units Q8HR SCHU[facility]ER Administration Cefepime HCl 2 gm/ Sodium 50 mls @ 100 mls/hr 05/14/25 21:00 05/19/25 22:36 Chloride IVPB 05/20/25 21:29 Infused Q12HR SCHU[facility]ER Infusion Dextrose 1,000 mls @ 100 mls/hr 05/14/25 12:48 Dextrose 5% 1,000 Ml IVPB PRN PRN Hypoglycemia Protocol Insulin Aspart 4 - 8 units 05/14/25 17:00 05/19/25 17:04 Insulin Aspart (*Bkc) 100 Units/Ml SUB-Q 5 units TIDWM [facility]ER Administration Protocol Insulin Aspart 15 units 05/17/25 12:00 05/19/25 17:04 Insulin Aspart (*Bkc) 100 Units/Ml SUB-Q 15 units TIDWM [facility]ER Administration Insulin Glargine 60 units 05/14/25 21:00 05/19/25 21:06 Insulin Glargine (*Bkc) 100 Units/Ml SUB-Q 60 units HS SCH[facility]ER Administration Loratadine 10 mg 05/15/25 09:00 05/19/25 08:29 Loratadine 10 Mg Tablet PO 10 mg DAILY SCHU[facility]ER Administration Metoprolol Succinate 25 mg 05/18/25 21:00 05/19/25 20:56 Metoprolol Succinate Ext Rel 25 Mg Tabcr PO 25 mg Q12HR [facility]ER Administration Miscellaneous Information 0 each 05/15/25 00:01 05/18/25 02:17 Dapagliflozin No Sub Generic? Ok To Sub With Jardiance? XX 06/14/25 00:00 Not Given CLARIFY SCHU[facility]ER Non-Formulary Medication 5 mg 05/15/25 09:00 Dapagliflozin Propanediol [Farxiga] PO 06/14/25 08:59 DAILY SCHU[facility]ER Pantoprazole Sodium 40 mg 05/15/25 09:00 05/19/25 08:29 Pantoprazole 40 Mg Tablet PO 40 mg QAM SCHU[facility]ER Administration Pramipexole Dihydrochloride 1 mg 05/14/25 21:00 05/19/25 20:56 Pramipexole 1 Mg Tablet PO 1 mg QHS SCHU[facility]ER Administration Quetiapine Fumarate 50 mg 05/14/25 21:00 05/19/25 20:56 Quetiapine Fumarate 25 Mg Tablet PO 50 mg HS SCHU[facility]ER Administration Tizanidine HCl 4 mg 10/05/25 19:10 Tizanidine Hcl 4 Mg Tablet PO QHS PRN Muscle Spasticity Trazodone HCl 50 mg 05/14/25 21:00 05/19/25 20:57 Trazodone Hcl 50 Mg Tablet PO 50 mg HS SCHU[facility]ER Administration Radiology Results: ITS Impressions Abdomen/Pelvis CT 05/14/25 11:30 IMPRESSION: 1. No acute findings. Chest X-Ray 05/16/25 09:25 IMPRESSION: 1. Persistent bibasilar atelectasis and/or airspace disease. Renal Ultrasound 05/16/25 15:06 IMPRESSION: 1. Normal kidneys without hydronephrosis. Labs Labs: Laboratory Results - last 24 hr 05/19/25 05/19/25 05/19/25 04:47 07:55 11:41 WBC RBC Hgb Hct MCV MCH MCHC RDW Plt Count MPV Immature Gran % (Auto) Neut % (Auto) Lymph % (Auto) [place] % (Auto) Eos % (Auto) Baso % (Auto) Lymph # (Auto) [place] # (Auto) Eos # (Auto) Baso # (Auto) Abs Immat Gran (auto) Absolute Neuts (auto) Absolute Nucleated RBC Nucleated RBC % Puncture Site ABG pH ABG pCO2 ABG pO2 ABG PO2/FiO2 Ratio ABG HCO3 ABG O2 Saturation ABG O2 Content ABG Base Excess A-a Gradient Oxyhemoglobin Total Hemoglobin O2 Delivery Device O2 Liters/Min FiO2 Sodium Potassium Chloride Carbon Dioxide Anion Gap BUN Creatinine Estim Creat Clear Calc Estimated GFR Glucose POC Capillary Glucose 229 H 237 H Calcium Phosphorus Magnesium Total Bilirubin AST ALT Alkaline Phosphatase NT-Pro-B Natriuret Pep 3670 H Total Protein Albumin 05/19/25 05/19/25 05/20/25 16:55 20:52 05:07 WBC RBC Hgb Hct MCV MCH MCHC RDW Plt Count MPV Immature Gran % (Auto) Neut % (Auto) Lymph % (Auto) [place] % (Auto) Eos % (Auto) Baso % (Auto) Lymph # (Auto) [place] # (Auto) Eos # (Auto) Baso # (Auto) Abs Immat Gran (auto) Absolute Neuts (auto) Absolute Nucleated RBC Nucleated RBC % Puncture Site Left radial ABG pH 7.341 L ABG pCO2 46.3 H ABG pO2 83.5 ABG PO2/FiO2 Ratio 2.32 ABG HCO3 24.5 ABG O2 Saturation 95.6 ABG O2 Content 16.8 ABG Base Excess -1.5 A-a Gradient 119.5 Oxyhemoglobin 94.2 Total Hemoglobin 12.6 O2 Delivery Device Other device O2 Liters/Min 4.0 FiO2 36 Sodium Potassium Chloride Carbon Dioxide Anion Gap BUN Creatinine Estim Creat Clear Calc Estimated GFR Glucose POC Capillary Glucose 275 H 232 H Calcium Phosphorus Magnesium Total Bilirubin AST ALT Alkaline Phosphatase NT-Pro-B Natriuret Pep Total Protein Albumin 05/20/25 06:17 WBC 11.8 H RBC 4.39 L Hgb 12.1 L Hct 39.3 L MCV 89.5 MCH 27.6 MCHC 30.8 L RDW 17.4 H Plt Count 201 MPV 10.3 Immature Gran % (Auto) 5.1 H Neut % (Auto) 76.7 H Lymph % (Auto) 9.3 L [place] % (Auto) 5.2 Eos % (Auto) 3.0 Baso % (Auto) 0.7 Lymph # (Auto) 1.10 [place] # (Auto) 0.6 Eos # (Auto) 0.4 H Baso # (Auto) 0.1 Abs Immat Gran (auto) 0.60 H Absolute Neuts (auto) 9.0 H Absolute Nucleated RBC 0.000 Nucleated RBC % 0.0 Puncture Site ABG pH ABG pCO2 ABG pO2 ABG PO2/FiO2 Ratio ABG HCO3 ABG O2 Saturation ABG O2 Content ABG Base Excess A-a Gradient Oxyhemoglobin Total Hemoglobin O2 Delivery Device O2 Liters/Min FiO2 Sodium 137 Potassium 3.7 Chloride 104 Carbon Dioxide 27 Anion Gap 6 BUN 58 H Creatinine 2.18 H Estim Creat Clear Calc 46 Estimated GFR 30 L Glucose 191 H POC Capillary Glucose Calcium 8.7 Phosphorus 2.6 Magnesium 1.8 Total Bilirubin 0.5 AST 27 ALT 19 Alkaline Phosphatase 66 NT-Pro-B Natriuret Pep Total Protein 6.1 L Albumin 3.0 L Quality VTE Prophylaxis VTE prophylaxis: pharmacologic ordered (Lovenox 40 mg BID (due to weight))
[2025-05-20] MEDS: GABAPENTIN 300 MG CAPSULE 600 MG PO ×2 (08:15→22:02)
[2025-05-20] MEDS: ATORVASTATIN 40 MG TABLET 80 MG PO (08:15)
[2025-05-20] MEDS: CLOPIDOGREL BISULFATE 75 MG TABLET PO (08:16)
[2025-05-20] MEDS: PANTOPRAZOLE 40 MG TABLET PO (08:16)
[2025-05-20] MEDS: BUMETANIDE 1 MG TABLET 2 MG PO ×2 (08:16→16:26)
[2025-05-20] MEDS: LORATADINE 10 MG TABLET PO (08:16)
[2025-05-20] MEDS: CYANOCOBALAMIN 1,000 MCG TABLET 1000 MCG PO (08:16)
[2025-05-20] MEDS: ASPIRIN 81 MG ENTERIC TABLET PO (08:16)
[2025-05-20] MEDS: CEFEPIME 2 GM in SODIUM CHLORIDE 0.9% IV 50 ML 100 ML IVPB ×2 (08:17→22:08)
[2025-05-20] MEDS: OMEGA 3 POLYUNSAT FATTY ACIDS 1 GM CAP PO ×2 (08:18→22:02)
[2025-05-20] MEDS: INSULIN ASPART (*BKC) 100 UNITS/ML 15 UNITS SUB-Q ×3 (08:19→17:25)
[2025-05-20] MEDS: METOPROLOL SUCCINATE EXT REL 25 MG TABCR PO ×2 (08:46→22:03)
[2025-05-20] MEDS: FLUTICASONE PROPIONATE 0.05% NA SPR 16 GM BTL (*BKC) 1 SPRAY NASAL ×2 (09:10→16:28)
[2025-05-20] MEDS: EMPAGLIFLOZIN 10 MG TABLET PO (09:11)
[2025-05-20] MEDS: DICLOFENAC SODIUM 1% 100 GM GEL (*BKC) 1 APPLIC TOPICAL ×4 (09:11→22:16)
--- NOTE | 2025-05-20 09:57 | P.PNCA_ITS ---
Progress Note: A&P Assessment and Plan (1) Elevated troponin: Code(s): R77.8 - Other specified abnormalities of plasma proteins Status: Acute (2) Cardiomyopathy: Qualifiers: Cardiomyopathy type: unspecified Qualified Code(s): I42.9 - Cardiomyopathy, unspecified Code(s): I42.9 - Cardiomyopathy, unspecified Status: Acute (3) CAD (coronary artery disease): Code(s): I25.10 - Atherosclerotic heart disease of [place] coronary artery without angina pectoris Status: Acute (4) Acute on chronic respiratory failure with hypoxia and hypercapnia: Code(s): J96.21 - Acute and chronic respiratory failure with hypoxia; J96.22 - Acute and chronic respiratory failure with hypercapnia Status: Acute (5) Pneumonia: Qualifiers: Laterality: unspecified laterality Lung location: unspecified part of lung Pneumonia type: due to unspecified organism Qualified Code(s): J18.9 - Pneumonia, unspecified organism Code(s): J18.9 - Pneumonia, unspecified organism Status: Acute (6) Morbid obesity with body mass index (BMI) of 50.0 to 59.9 in adult: Code(s): E66.01 - Morbid (severe) obesity due to excess calories; Z68.43 - Body mass index [BMI] 50.0-59.9, adult Status: Acute (7) CKD (chronic kidney disease): Code(s): N18.9 - Chronic kidney disease, unspecified Status: Chronic Plan NSTEMI-Patient with elevated troponin that are flat and not consistent with ACS. Most likely suggestive of demand ischemia in setting of UTI and PNA. His EKG demonstrated a NSR with no acute ST/T wave changes.Continue aspirin 81mg daily plavix 75 mg daily, atorvastatin 80 mg daily. Acute/Chronic respiratory failure: In the setting of obesity hypoventilation syndrome and pneumonia. Now on O2 NC. BIPAP for all sleep. Pulmonary is following. Pneumonia. Continue antibiotics as per primary team UTI. Antibiotics as per primary team Cardiomyopathy-Echo reported EF of 30-35% with anteroseptal and apex hypokinesis. Did review images with Dr. Silva and felt that EF of 40%. Last echo in hospital in 2021 reported EF of 55-60%, but echo in office in 2020 demonstrated EF of 35%. Unclear if decline in EF is truly ischemic or related to his acute infectious process. At this time patient will be managed medically in setting of acute infection and worsening CKD. Will continue with diuresis as tolerated/needed. Continue farxiga. Continue metoprolol succinate. Agree with transition to oral bumetanide tomorrow. Discontinue IV diuresis today. No ARB/ARNI at this time given his renal function. Potassium is a little low today. Will replace with 20 mEq of p.o. KCl x1 CHF-acute decompensated combined systolic and diastolic dysfunction. Patient with EF of 30-35%. His CXR demonstrated pulmonary vascular congestion. History of CAD. With stent to RCA and LAD in the past. Continue aspirin, plavix and statin. History of TAVR. Chronic Kidney Disease. CR has gone from 2.52-->3.18-->2.98. Creatinine down to 2.18 Morbid obesity Subjective Date/time seen: 05/20/25 09:57 Interval history: 74-year-old admitted for volume overload Date of service 05/20/2025: Breathing better. No chest pain. Review of Systems Review of Systems: All systems reviewed & are unremarkable except as noted in HPI and below Constitutional: Constitutional: Denies body ache(s) Cardiovascular: Cardiovascular: Denies chest pain Respiratory: Respiratory: Reports dyspnea Gastrointestinal: Gastrointestinal: Denies abdominal pain Genitourinary: Genitourinary: Denies hematuria Exam Narrative: General: Alert and oriented x 3. NAD Neck: no JVD Resp: decreased BS bilaterally CV: S1, S2 GI: abdomen round obese, non-tender Extremities: chronic bilateral LE edema (improved) Objective Data Vital Signs Vital Signs: Vital Signs - 24 hr 05/19/25 10:20 05/19/25 10:25 05/19/25 10:30 Temperature Pulse Rate 76 96 98 Respiratory Rate Blood Pressure Pulse Oximetry 92 85 L 86 L Oxygen Delivery Room Air Room Air Nasal Cannula Oxygen Flow Rate 1 05/19/25 10:35 05/19/25 10:40 05/19/25 11:00 Temperature Pulse Rate 100 101 H 78 Respiratory Rate Blood Pressure Pulse Oximetry 87 L 91 92 Oxygen Delivery Nasal Cannula Nasal Cannula Room Air Oxygen Flow Rate 2 3 05/19/25 11:15 05/19/25 11:50 05/19/25 12:00 Temperature Pulse Rate 79 77 Respiratory Rate Blood Pressure 129/59 L Pulse Oximetry 93 93 Oxygen Delivery Room Air Oxygen Flow Rate 05/19/25 15:16 05/19/25 16:00 05/19/25 20:00 Temperature 36.6 C Pulse Rate 76 73 81 Respiratory Rate 18 Blood Pressure 147/77 H Pulse Oximetry 93 Oxygen Delivery Oxygen Flow Rate 05/19/25 20:40 05/19/25 20:50 05/19/25 20:56 Temperature 36.3 C L Pulse Rate 81 81 Respiratory Rate 14 Blood Pressure 139/69 Pulse Oximetry 97 Oxygen Delivery Room Air Oxygen Flow Rate 05/19/25 21:26 05/19/25 22:00 05/19/25 22:15 Temperature 36.6 C Pulse Rate 83 75 Respiratory Rate 18 Blood Pressure 132/59 L Pulse Oximetry 92 92 92 Oxygen Delivery Room Air Oxygen Flow Rate 05/20/25 00:00 05/20/25 04:00 05/20/25 06:00 Temperature 36.5 C Pulse Rate 73 67 78 Respiratory Rate 16 Blood Pressure 131/65 Pulse Oximetry 94 Oxygen Delivery Oxygen Flow Rate 05/20/25 08:00 05/20/25 08:00 Temperature 36.6 C Pulse Rate 78 Respiratory Rate 16 Blood Pressure 120/56 L Pulse Oximetry 98 Oxygen Delivery Room Air Oxygen Flow Rate Intake/Output Intake/Output: Intake & Output 05/17/25 05/18/25 05/19/25 05/20/25 23:59 23:59 23:59 23:59 Intake Total 1940 2340 1360 540 Output Total 550 975 575 800 Balance 1390 1365 785 -260 Meds/Results Medications: Active Medications Generic Name Dose Route Start Last Admin Trade Name G[place] PRN Reason Stop Dose Admin Acetaminophen 1,000 mg 05/14/25 23:34 05/14/25 23:56 Acetaminophen 500 Mg Tablet PO 1,000 mg Q6H PRN Administration Mild Pain (1-3) or Fever Aspirin 81 mg 05/15/25 09:00 05/20/25 08:16 Aspirin 81 Mg Enteric Tablet PO 81 mg DAILY [facility]ER Administration Atorvastatin Calcium 80 mg 05/15/25 09:00 05/20/25 08:15 Atorvastatin 40 Mg Tablet PO 80 mg DAILY [facility]ER Administration Bumetanide 2 mg 05/19/25 09:00 05/20/25 08:16 Bumetanide 1 Mg Tablet PO 2 mg BID SCHU[facility]ER Administration Clopidogrel Bisulfate 75 mg 05/15/25 09:00 05/20/25 08:16 Clopidogrel Bisulfate 75 Mg Tablet PO 75 mg QAM SCHU[facility]ER Administration Cyanocobalamin 1,000 mcg 05/15/25 09:00 05/20/25 08:16 Cyanocobalamin 1,000 Mcg Tablet PO 1,000 mcg QAM SCHU[facility]ER Administration Dextrose 12.5 gm 05/14/25 12:48 Dextrose 50% 25 Gm/50 Ml Syringe IV PUSH PRN PRN Hypoglycemia Protocol Diclofenac Sodium 1 applic 05/14/25 21:00 05/20/25 09:11 Diclofenac Sodium 1% 100 Gm Gel (*Bkc) TOPICAL 1 applic QID [facility]ER Administration Diphenoxylate HCl/Atropine 1 tablet 05/14/25 19:10 Diphenoxylate/Atropine (*Crx) 2.5 Mg Tablet PO QID PRN Diarrhea Empagliflozin 10 mg 05/20/25 09:00 05/20/25 09:11 Empagliflozin 10 Mg Tablet PO 10 mg DAILY SCHU[facility]ER Administration Fish Oil 1 gm 05/14/25 21:00 05/20/25 08:18 [place] 3 Polyunsat Fatty Acids 1 Gm Cap PO 1 gm Q12HR [facility]ER Administration Fluoxetine HCl 20 mg 05/14/25 21:00 05/19/25 20:58 Fluoxetine Hcl 20 Mg Capsule PO 20 mg HS SCHU[facility]ER Administration Fluticasone Propionate 1 spray 05/15/25 09:00 05/20/25 09:10 Fluticasone Propionate 0.05% Na Spr 16 Gm Btl (*Bkc) NASAL 1 spray BID SCHU[facility]ER Administration Gabapentin 600 mg 05/14/25 21:00 05/20/25 08:15 Gabapentin 300 Mg Capsule PO 600 mg Q12HR [facility]ER Administration Glucagon 1 mg 05/14/25 12:48 Glucagon For Inj 1 Mg Vial IM PRN PRN Hypoglycemia Protocol Glucose 15 gm 05/14/25 12:48 Glucose Oral Gel 15 Gm Of Glucse In 37.5 Gm Tube PO PRN PRN Hypoglycemia Protocol Heparin Sodium (Porcine) 5,000 units 05/16/25 14:00 05/20/25 05:47 Heparin Sodium 5,000 Units/Ml Vial SUB-Q 5,000 units Q8HR [facility]ER Administration Cefepime HCl 2 gm/ Sodium 50 mls @ 100 mls/hr 05/14/25 21:00 05/20/25 08:17 Chloride IVPB 05/20/25 21:29 100 mls/hr Q12HR SCHU[facility]ER Administration Dextrose 1,000 mls @ 100 mls/hr 05/14/25 12:48 Dextrose 5% 1,000 Ml IVPB PRN PRN Hypoglycemia Protocol Insulin Aspart 4 - 8 units 05/14/25 17:00 05/20/25 08:43 Insulin Aspart (*Bkc) 100 Units/Ml SUB-Q Not Given TIDWM [facility]ER Protocol Insulin Aspart 15 units 05/17/25 12:00 05/20/25 08:19 Insulin Aspart (*Bkc) 100 Units/Ml SUB-Q 15 units TIDWM SCHU[facility]ER Administration Insulin Glargine 60 units 05/14/25 21:00 05/19/25 21:06 Insulin Glargine (*Bkc) 100 Units/Ml SUB-Q 60 units HS SCHU[facility]ER Administration Loratadine 10 mg 05/15/25 09:00 05/20/25 08:16 Loratadine 10 Mg Tablet PO 10 mg DAILY SCHU[facility]ER Administration Metoprolol Succinate 25 mg 05/18/25 21:00 05/20/25 08:46 Metoprolol Succinate Ext Rel 25 Mg Tabcr PO 25 mg Q12HR SCHU[facility]ER Administration Pantoprazole Sodium 40 mg 05/15/25 09:00 05/20/25 08:16 Pantoprazole 40 Mg Tablet PO 40 mg QAM SCHU[facility]ER Administration Pramipexole Dihydrochloride 1 mg 05/14/25 21:00 05/19/25 20:56 Pramipexole 1 Mg Tablet PO 1 mg QHS SCHU[facility]ER Administration Quetiapine Fumarate 50 mg 05/14/25 21:00 05/19/25 20:56 Quetiapine Fumarate 25 Mg Tablet PO 50 mg HS SCHU[facility]ER Administration Tizanidine HCl 4 mg 05/14/25 19:10 Tizanidine Hcl 4 Mg Tablet PO QHS PRN Muscle Spasticity Trazodone HCl 50 mg 05/14/25 21:00 05/19/25 20:57 Trazodone Hcl 50 Mg Tablet PO 50 mg HS SCHU[facility]ER Administration Radiology Results: ITS Impressions Abdomen/Pelvis CT 05/14/25 11:30 IMPRESSION: 1. No acute findings. Chest X-Ray 05/16/25 09:25 IMPRESSION: 1. Persistent bibasilar atelectasis and/or airspace disease. Renal Ultrasound 05/16/25 15:06 IMPRESSION: 1. Normal kidneys without hydronephrosis. Labs Labs: Laboratory Results - last 24 hr 05/19/25 05/19/25 05/19/25 11:41 16:55 20:52 WBC RBC Hgb Hct MCV MCH MCHC RDW Plt Count MPV Immature Gran % (Auto) Neut % (Auto) Lymph % (Auto) [place] % (Auto) Eos % (Auto) Baso % (Auto) Lymph # (Auto) [place] # (Auto) Eos # (Auto) Baso # (Auto) Abs Immat Gran (auto) Absolute Neuts (auto) Absolute Nucleated RBC Nucleated RBC % Puncture Site ABG pH ABG pCO2 ABG pO2 ABG PO2/FiO2 Ratio ABG HCO3 ABG O2 Saturation ABG O2 Content ABG Base Excess A-a Gradient Oxyhemoglobin Total Hemoglobin O2 Delivery Device O2 Liters/Min FiO2 Sodium Potassium Chloride Carbon Dioxide Anion Gap BUN Creatinine Estim Creat Clear Calc Estimated GFR Glucose POC Capillary Glucose 237 H 275 H 232 H Calcium Phosphorus Magnesium Total Bilirubin AST ALT Alkaline Phosphatase Total Protein Albumin 05/20/25 05/20/25 05/20/25 05:07 06:17 07:59 WBC 11.8 H RBC 4.39 L Hgb 12.1 L Hct 39.3 L MCV 89.5 MCH 27.6 MCHC 30.8 L RDW 17.4 H Plt Count 201 MPV 10.3 Immature Gran % (Auto) 5.1 H Neut % (Auto) 76.7 H Lymph % (Auto) 9.3 L [place] % (Auto) 5.2 Eos % (Auto) 3.0 Baso % (Auto) 0.7 Lymph # (Auto) 1.10 [place] # (Auto) 0.6 Eos # (Auto) 0.4 H Baso # (Auto) 0.1 Abs Immat Gran (auto) 0.60 H Absolute Neuts (auto) 9.0 H Absolute Nucleated RBC 0.000 Nucleated RBC % 0.0 Puncture Site Left radial ABG pH 7.341 L ABG pCO2 46.3 H ABG pO2 83.5 ABG PO2/FiO2 Ratio 2.32 ABG HCO3 24.5 ABG O2 Saturation 95.6 ABG O2 Content 16.8 ABG Base Excess -1.5 A-a Gradient 119.5 Oxyhemoglobin 94.2 Total Hemoglobin 12.6 O2 Delivery Device Other device O2 Liters/Min 4.0 FiO2 36 Sodium 137 Potassium 3.7 Chloride 104 Carbon Dioxide 27 Anion Gap 6 BUN 58 H Creatinine 2.18 H Estim Creat Clear Calc 46 Estimated GFR 30 L Glucose 191 H POC Capillary Glucose 199 H Calcium 8.7 Phosphorus 2.6 Magnesium 1.8 Total Bilirubin 0.5 AST 27 ALT 19 Alkaline Phosphatase 66 Total Protein 6.1 L Albumin 3.0 L
[2025-05-20] MEDS: POTASSIUM CHLORIDE 20 MEQ ER TABLET PO (12:00)
[2025-05-20] MEDS: SACUBITRIL/VALSARTAN 24-26 MG TABLET 1 TAB PO (22:02)
[2025-05-20] MEDS: PRAMIPEXOLE 1 MG TABLET PO (22:03)
[2025-05-20] MEDS: INSULIN GLARGINE (*BKC) 100 UNITS/ML 80 UNITS SUB-Q (22:14)
[2025-05-21] VITALS (16 sets, daily range): BP systolic 97–149; BP diastolic 50–72; PULSE 63–79; RESP 16–20; TEMP 35.8–36.7; O2SAT 93–99
[2025-05-21 05:28] LABS: Hematocrit 39.8 % (42.0-52.0); Hemoglobin 12.4 g/dL (14.0-18.0); Mean Corpuscular HGB Conc 31.2 g/dl (32-36); Mean Corpuscular Hemoglobin 27.7 pg (26-34); Mean Corpuscular Volume 88.8 fl (80-100); Platelet Count Result 230 k/mm3 (150-375); Red Blood Count 4.48 M/mm3 (4.6-6.20); White Blood Count 13.3 K/mm3 (4.5-10.0)
[2025-05-21 05:48] LABS: Alanine Aminotransferase 22 U/L (6-50); Albumin Level 3.1 g/dL (3.5-5.1); Alkaline Phosphatase 63 U/L (38-126); Anion Gap 5 mmol/L (4-12); Aspartate Amino Transferase 40 U/L (17-59); Bilirubin,Total 0.5 mg/dL (0.2-1.3); Blood Urea Nitrogen 56 mg/dL (9-20); Calcium 8.7 mg/dL (8.4-10.2); Carbon Dioxide 29 mmol/L (22-30); Chloride 102 mmol/L (98-107); Estimated CRCL calculation 42 ml/min; Estimated Glomerular Filt Rate 26; Glucose 173 mg/dL (65-110); Magnesium 1.8 mg/dL (1.6-2.3); Potassium 3.6 mmol/L (3.4-5.0); Sodium 136 mmol/L (137-145); Total Protein 6.1 g/dL (6.3-8.2)
[2025-05-21 05:55] LABS: Anisocytosis 1+; Band Neutrophils Percent 2 % (0-6); Basophils Absolute Manual 0.26 K/mm3 (0.0-0.1); Basophils Percent Manual 2 % (0-1); Eosinophils Absolute Manual 0.26 K/mm3 (0.02-0.50); Eosinophils Percent Manual 2 % (0-4); Lymphocytes Absolute Manual 1.19 K/mm3 (1.1-4.5); Lymphocytes Percent Manual 9.0 % (18-44); Monocytes Absolute Manual 0.26 K/mm3 (0.1-0.90); Monocytes Percent Manual 2 % (3-9); Myelocytes Percent 1 %; Neutrophils Absolute Manual 11.17 K/mm3 (1.3-6.7); Neutrophils Percent Manual 82 % (46-73); Schistocytes None Seen; Smudge Cells PRESENT; Total Cells Counted 100
--- NOTE | 2025-05-21 07:18 | P.PNIM_ITS ---
Progress Note: A&P Assessment and Plan (1) Sepsis: Code(s): A41.9 - Sepsis, unspecified organism Status: Acute Assessment and Plan: (2) Elevated troponin: Code(s): R79.89 - Other specified abnormal findings of blood chemistry Status: Acute Assessment and Plan: Type 2 NSTEMI in the setting of DAWNA on chronic kidney disease. Troponin plateau. Likely 2/2 Demand mismatch. Chest pain free. (3) Acute and chronic respiratory failure ([id number]): Code(s): J96.20 - Acute and chronic respiratory failure, unspecified whether with hypoxia or hypercapnia Status: Acute (4) Altered mental status: Code(s): R41.82 - Altered mental status, unspecified Status: Acute Assessment and Plan: Resolved Likely secondary to aspiration pneumonia, acute hypoxic hypercapnic respiratory failure secondary to obesity hypoventilation syndrome and systolic heart failure (5) Acute UTI: Code(s): N39.0 - Urinary tract infection, site not specified Status: Acute Assessment and Plan: Completed IV antibiotics (6) Hypomagnesemia: Code(s): E83.42 - Hypomagnesemia Status: Acute Assessment and Plan: Repleted as needed (7) Congestive heart failure: Qualifiers: Heart failure chronicity: acute on chronic Heart failure type: systolic Qualified Code(s): I50.23 - Acute on chronic systolic (congestive) heart failure Code(s): I50.9 - Heart failure, unspecified Status: Acute Assessment and Plan: -Compatible was systolic heart failure in the setting of coronary artery disease. EF 30-35% - on room air at rest, and 3 L NC on exertion, BIPAP at night for obesity hypoventilation syndrome -IV Bumex switched to p.o. -continue Bumex 2 mg b.i.d., daily standing weight, strict I&Os, Na <2g daily -continue metoprolol succinate and farxiga -D/w Cardiology to initiate Entresto for GDMT -continue Entresto 24mg /25 mg BID as long as systolic blood pressure greater than 100/60 -continue Asa/plavix/statin (8) CKD (chronic kidney disease): Code(s): N18.9 - Chronic kidney disease, unspecified Status: Chronic Assessment and Plan: -creatinine increased today from 2.18-2.42. This elevation is expected and Entresto. His blood pressure was also in the low side. Will keep the patient for 1 night to monitor his blood pressure and his kidney function. 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 Ready to d/sandra from Pulm standing point Changed to AVAPS setting at night here and setting being changed for discharge Plan DVT prophylaxis heparin subQ Disposition: PT OT to see Subjective Date/time seen: 05/21/25 07:18 Interval history: Slept well and workup refreshed. She is excited to go home. Patient interested going home with home health Exam Narrative: APPEARANCE: Morbidly obese EYES: EOMI HEENT: Normocephalic, atraumatic, OMM RESPIRATORY: No respiratory distress Clear to auscultation bilaterally with no rhonchi wheezing or rales. CARDIOVASCULAR: RRR, S1 and S2 without murmurs rubs or gallops. ABDOMINAL: Soft, nontender, nondistended, no rebound or guarding MSK: Significant swelling in the lower extremities NEURO: Awake and alert. Following commands, speech normal, no focal deficits SKIN:: Warm, dry. No rashes lesions or abrasions PSYCHIATRIC: Normal affect/mood Objective Data Vital Signs Vital Signs: Vital Signs - 24 hr 05/20/25 08:00 05/20/25 08:00 05/20/25 08:00 Temperature 36.6 C Pulse Rate 78 78 Respiratory Rate 16 Blood Pressure 120/56 L Pulse Oximetry 98 Oxygen Delivery Room Air 05/20/25 12:00 05/20/25 13:17 05/20/25 16:00 Temperature Pulse Rate 78 79 71 Respiratory Rate 18 Blood Pressure 115/52 L Pulse Oximetry 94 Oxygen Delivery 05/20/25 20:00 05/20/25 20:21 05/20/25 21:55 Temperature 36.5 C Pulse Rate 84 77 Respiratory Rate 16 Blood Pressure 117/58 L Pulse Oximetry 97 Oxygen Delivery Room Air 05/20/25 22:03 05/21/25 00:00 05/21/25 00:10 Temperature Pulse Rate 77 66 72 Respiratory Rate Blood Pressure Pulse Oximetry 94 Oxygen Delivery 05/21/25 04:00 05/21/25 05:07 05/21/25 05:16 Temperature 36.7 C Pulse Rate 73 63 72 Respiratory Rate 16 Blood Pressure 97/56 L Pulse Oximetry 93 94 Oxygen Delivery Intake/Output Intake/Output: Intake & Output 05/18/25 05/19/25 05/20/25 05/21/25 23:59 23:59 23:59 23:59 Intake Total 2340 1360 2110 350 Output Total 531 507 1434 Balance 1365 785 810 350 Meds/Results Medications: Active Medications Generic Name Dose Route Start Last Admin Trade Name Freq PRN Reason Stop Dose Admin Acetaminophen 1,000 mg 05/14/25 23:34 05/14/25 23:56 Acetaminophen 500 Mg Tablet PO 1,000 mg Q6H PRN Administration Mild Pain (1-3) or Fever Aspirin 81 mg 05/15/25 09:00 05/20/25 08:16 Aspirin 81 Mg Enteric Tablet PO 81 mg DAILY SCHUYLER Administration Atorvastatin Calcium 80 mg 05/15/25 09:00 05/20/25 08:15 Atorvastatin 40 Mg Tablet PO 80 mg DAILY SCHUYLER Administration Bumetanide 2 mg 05/19/25 09:00 05/20/25 16:26 Bumetanide 1 Mg Tablet PO 2 mg BID SCHUYLER Administration Clopidogrel Bisulfate 75 mg 05/15/25 09:00 05/20/25 08:16 Clopidogrel Bisulfate 75 Mg Tablet PO 75 mg QAM SCHUYLER Administration Cyanocobalamin 1,000 mcg 05/15/25 09:00 05/20/25 08:16 Cyanocobalamin 1,000 Mcg Tablet PO 1,000 mcg QAM SCHUYLER Administration Dextrose 12.5 gm 05/14/25 12:48 Dextrose 50% 25 Gm/50 Ml Syringe IV PUSH PRN PRN Hypoglycemia Protocol Diclofenac Sodium 1 applic 05/14/25 21:00 05/20/25 22:16 Diclofenac Sodium 1% 100 Gm Gel (*Bkc) TOPICAL 1 applic QID SCHUYLER Administration Diphenoxylate HCl/Atropine 1 tablet 05/14/25 19:10 Diphenoxylate/Atropine (*Crx) 2.5 Mg Tablet PO QID PRN Diarrhea Empagliflozin 10 mg 05/20/25 09:00 05/20/25 09:11 Empagliflozin 10 Mg Tablet PO 10 mg DAILY SCHUYLER Administration Fish Oil 1 gm 05/14/25 21:00 05/20/25 22:02 [place] 3 Polyunsat Fatty Acids 1 Gm Cap PO 1 gm Q12HR SCHUYLER Administration Fluoxetine HCl 20 mg 05/14/25 21:00 05/20/25 22:02 Fluoxetine Hcl 20 Mg Capsule PO 20 mg HS SCHUYLER Administration Fluticasone Propionate 1 spray 05/15/25 09:00 05/20/25 16:28 Fluticasone Propionate 0.05% Na Spr 16 Gm Btl (*Bkc) NASAL 1 spray BID SCHUYLER Administration Gabapentin 600 mg 05/14/25 21:00 05/20/25 22:02 Gabapentin 300 Mg Capsule PO 600 mg Q12HR SCHU[facility]ER Administration Glucagon 1 mg 05/14/25 12:48 Glucagon For Inj 1 Mg Vial IM PRN PRN Hypoglycemia Protocol Glucose 15 gm 05/14/25 12:48 Glucose Oral Gel 15 Gm Of Glucse In 37.5 Gm Tube PO PRN PRN Hypoglycemia Protocol Heparin Sodium (Porcine) 5,000 units 05/16/25 14:00 05/21/25 05:40 Heparin Sodium 5,000 Units/Ml Vial SUB-Q 5,000 units Q8HR SCHUYLER Administration Dextrose 1,000 mls @ 100 mls/hr 05/14/25 12:48 Dextrose 5% 1,000 Ml IVPB PRN PRN Hypoglycemia Protocol Insulin Aspart 4 - 8 units 05/14/25 17:00 05/20/25 17:22 Insulin Aspart (*Bkc) 100 Units/Ml SUB-Q Not Given TIDWM [facility]ER Protocol Insulin Aspart 15 units 05/17/25 12:00 05/20/25 17:25 Insulin Aspart (*Bkc) 100 Units/Ml SUB-Q 15 units TIDWM [facility]ER Administration Insulin Glargine 80 units 05/20/25 21:00 05/20/25 22:14 Insulin Glargine (*Bkc) 100 Units/Ml SUB-Q 80 units HS SHCUYLER Administration Loratadine 10 mg 05/15/25 09:00 05/20/25 08:16 Loratadine 10 Mg Tablet PO 10 mg DAILY SCHUYLER Administration Metoprolol Succinate 25 mg 05/18/25 21:00 05/20/25 22:03 Metoprolol Succinate Ext Rel 25 Mg Tabcr PO 25 mg Q12HR SCHUYLER Administration Pantoprazole Sodium 40 mg 05/15/25 09:00 05/20/25 08:16 Pantoprazole 40 Mg Tablet PO 40 mg QAM SCHUYLER Administration Pramipexole Dihydrochloride 1 mg 05/14/25 21:00 05/20/25 22:03 Pramipexole 1 Mg Tablet PO 1 mg QHS SCHUYLER Administration Quetiapine Fumarate 50 mg 05/14/25 21:00 05/20/25 22:02 Quetiapine Fumarate 25 Mg Tablet PO 50 mg HS SCHUYLER Administration Sacubitril/Valsartan 1 tab 05/20/25 21:00 05/20/25 22:02 Sacubitril/Valsartan 24-26 Mg Tablet PO 1 tab Q12HR SCHU[facility]ER Administration Tizanidine HCl 4 mg 05/14/25 19:10 Tizanidine Hcl 4 Mg Tablet PO QHS PRN Muscle Spasticity Trazodone HCl 50 mg 05/14/25 21:00 05/20/25 22:02 Trazodone Hcl 50 Mg Tablet PO 50 mg HS SCHUYLER Administration Radiology Results: ITS Impressions Abdomen/Pelvis CT 05/14/25 11:30 IMPRESSION: 1. No acute findings. Chest X-Ray 05/16/25 09:25 IMPRESSION: 1. Persistent bibasilar atelectasis and/or airspace disease. Renal Ultrasound 05/16/25 15:06 IMPRESSION: 1. Normal kidneys without hydronephrosis. Labs Labs: Laboratory Results - last 24 hr 05/20/25 05/20/25 05/20/25 07:59 11:56 17:15 WBC RBC Hgb Hct MCV MCH MCHC RDW Plt Count MPV Immature Gran % (Auto) Neut % (Auto) Lymph % (Auto) [place] % (Auto) Eos % (Auto) Baso % (Auto) Lymph # (Auto) [place] # (Auto) Eos # (Auto) Baso # (Auto) Abs Immat Gran (auto) Absolute Neuts (auto) Absolute Nucleated RBC Total Counted Neutrophils % (Manual) Band Neutrophils % Lymphocytes % (Manual) Monocytes % (Manual) Eosinophils % (Manual) Basophils % (Manual) Myelocytes % Nucleated RBC % Abs Neuts (Manual) Abs Lymphs (Manual) Abs Monocytes (Manual) Absolute Eos (Manual) Abs Basophils (Manual) Smudge Cells Platelet Estimate Anisocytosis Schistocytes Sodium Potassium Chloride Carbon Dioxide Anion Gap BUN Creatinine Estim Creat Clear Calc Estimated GFR Glucose POC Capillary Glucose 199 H 200 H 197 H Calcium Phosphorus Magnesium Total Bilirubin AST ALT Alkaline Phosphatase Total Protein Albumin 05/20/25 05/21/25 20:25 04:49 WBC 13.3 H RBC 4.48 L Hgb 12.4 L Hct 39.8 L MCV 88.8 MCH 27.7 MCHC 31.2 L RDW 17.7 H Plt Count 230 MPV 10.5 H Immature Gran % (Auto) Not Reportable Neut % (Auto) Not Reportable Lymph % (Auto) Not Reportable [place] % (Auto) Not Reportable Eos % (Auto) Not Reportable Baso % (Auto) Not Reportable Lymph # (Auto) Not Reportable [place] # (Auto) Not Reportable Eos # (Auto) Not Reportable Baso # (Auto) Not Reportable Abs Immat Gran (auto) Not Reportable Absolute Neuts (auto) Not Reportable Absolute Nucleated RBC Not Reportable Total Counted 100 Neutrophils % (Manual) 82 H Band Neutrophils % 2 Lymphocytes % (Manual) 9.0 L Monocytes % (Manual) 2 L Eosinophils % (Manual) 2 Basophils % (Manual) 2 H Myelocytes % 1 Nucleated RBC % Not Reportable Abs Neuts (Manual) 11.17 H Abs Lymphs (Manual) 1.19 Abs Monocytes (Manual) 0.26 Absolute Eos (Manual) 0.26 Abs Basophils (Manual) 0.26 H Smudge Cells Present Platelet Estimate Adequate Anisocytosis 1+ Schistocytes None seen Sodium 136 L Potassium 3.6 Chloride 102 Carbon Dioxide 29 Anion Gap 5 BUN 56 H Creatinine 2.42 H Estim Creat Clear Calc 42 Estimated GFR 26 L Glucose 173 H POC Capillary Glucose 231 H Calcium 8.7 Phosphorus 2.8 Magnesium 1.8 Total Bilirubin 0.5 AST 40 ALT 22 Alkaline Phosphatase 63 Total Protein 6.1 L Albumin 3.1 L Quality VTE Prophylaxis VTE prophylaxis: pharmacologic ordered (Lovenox 40 mg BID (due to weight))
[2025-05-21] MEDS: ATORVASTATIN 40 MG TABLET 80 MG PO (08:08)
[2025-05-21] MEDS: CYANOCOBALAMIN 1,000 MCG TABLET 1000 MCG PO (08:09)
[2025-05-21] MEDS: LORATADINE 10 MG TABLET PO (08:09)
[2025-05-21] MEDS: EMPAGLIFLOZIN 10 MG TABLET PO (08:09)
[2025-05-21] MEDS: ASPIRIN 81 MG ENTERIC TABLET PO (08:09)
[2025-05-21] MEDS: PANTOPRAZOLE 40 MG TABLET PO (08:09)
[2025-05-21] MEDS: DICLOFENAC SODIUM 1% 100 GM GEL (*BKC) 1 APPLIC TOPICAL ×2 (08:09→22:42)
[2025-05-21] MEDS: CLOPIDOGREL BISULFATE 75 MG TABLET PO (08:09)
[2025-05-21] MEDS: GABAPENTIN 300 MG CAPSULE 600 MG PO ×2 (08:09→22:40)
[2025-05-21] MEDS: FLUTICASONE PROPIONATE 0.05% NA SPR 16 GM BTL (*BKC) 1 SPRAY NASAL ×2 (08:10→17:36)
[2025-05-21] MEDS: OMEGA 3 POLYUNSAT FATTY ACIDS 1 GM CAP PO ×2 (08:10→22:38)
[2025-05-21] MEDS: INSULIN ASPART (*BKC) 100 UNITS/ML 15 UNITS SUB-Q ×3 (08:16→17:35)
--- NOTE | 2025-05-21 09:23 | P.PNCA_ITS ---
Progress Note: A&P Assessment and Plan (1) Elevated troponin: Code(s): R77.8 - Other specified abnormalities of plasma proteins Status: Acute (2) Cardiomyopathy: Qualifiers: Cardiomyopathy type: unspecified Qualified Code(s): I42.9 - Cardiomyopathy, unspecified Code(s): I42.9 - Cardiomyopathy, unspecified Status: Acute (3) CAD (coronary artery disease): Code(s): I25.10 - Atherosclerotic heart disease of [place] coronary artery without angina pectoris Status: Acute (4) Acute on chronic respiratory failure with hypoxia and hypercapnia: Code(s): J96.21 - Acute and chronic respiratory failure with hypoxia; J96.22 - Acute and chronic respiratory failure with hypercapnia Status: Acute (5) Pneumonia: Qualifiers: Laterality: unspecified laterality Lung location: unspecified part of lung Pneumonia type: due to unspecified organism Qualified Code(s): J18.9 - Pneumonia, unspecified organism Code(s): J18.9 - Pneumonia, unspecified organism Status: Acute (6) Morbid obesity with body mass index (BMI) of 50.0 to 59.9 in adult: Code(s): E66.01 - Morbid (severe) obesity due to excess calories; Z68.43 - Body mass index [BMI] 50.0-59.9, adult Status: Acute (7) CKD (chronic kidney disease): Code(s): N18.9 - Chronic kidney disease, unspecified Status: Chronic Plan NSTEMI-Patient with elevated troponin that are flat and not consistent with ACS. Most likely suggestive of demand ischemia in setting of UTI and PNA. His EKG demonstrated a NSR with no acute ST/T wave changes.Continue aspirin 81mg daily plavix 75 mg daily, atorvastatin 80 mg daily. Acute/Chronic respiratory failure: In the setting of obesity hypoventilation syndrome and pneumonia. Now on O2 NC. BIPAP for all sleep. Pulmonary is following. Pneumonia. Continue antibiotics as per primary team UTI. Antibiotics as per primary team Cardiomyopathy-Echo reported EF of 30-35% with anteroseptal and apex hypokinesis. Did review images with Dr. Silva and felt that EF of 40%. Last echo in hospital in 2021 reported EF of 55-60%, but echo in office in 2020 demonstrated EF of 35%. Unclear if decline in EF is truly ischemic or related to his acute infectious process. At this time patient will be managed medically in setting of acute infection and worsening CKD. Will continue with diuresis as tolerated/needed. Continue farxiga. Continue metoprolol succinate. Creatinine increased to 2.4 today. Will reduce his Entresto down 12/13 mg p.o. b.i.d. and will need close observation his creatinine. May not tolerate CHF-acute decompensated combined systolic and diastolic dysfunction. Patient with EF of 30-35%. His CXR demonstrated pulmonary vascular congestion. History of CAD. With stent to RCA and LAD in the past. Continue aspirin, plavix and statin. History of TAVR. Chronic Kidney Disease. CR has gone from 2.52-->3.18-->2.98. Creatinine down to 2.18 and now back up to 2.4 Morbid obesity Subjective Date/time seen: 05/21/25 09:23 Interval history: 74-year-old admitted for volume overload Date of service 05/20/2025: Breathing better. No chest pain. Date of service 05/21/2025: Still has significant edema but no chest pain or shortness of breath. Review of Systems Review of Systems: All systems reviewed & are unremarkable except as noted in HPI and below Cardiovascular: Cardiovascular: Denies chest pain and Reports leg edema Exam Narrative: General: Alert and oriented x 3. NAD Neck: no JVD Resp: decreased BS bilaterally CV: S1, S2 GI: abdomen round obese, non-tender Extremities: chronic bilateral LE edema (improved) Const: General: comfortable and no acute distress Other: Massively obese gentleman no distress of any kind HENMT: Mouth: Yes moist mucous membranes Eyes: Sclera: sclerae normal Neck: Neck: supple Other: not able to comment on JVD given his body habitus Resp: Effort & Inspection: normal respiratory effort Auscultation: clear to auscultation bilaterally Other: breath sounds are distant does with would be expected but are grossly clear without wheezes rales rhonchi Cardio: Rate: regular rate Rhythm: regular rhythm Other: PMI of course is not palpable, no audible cardiac murmur GI: Auscultation: normal bowel sounds Other: massively obese but benign Skin: General skin exam: normal color Neuro: Other: alert and responsive Extrem: Other: adequate arterial perfusion, significant soft pitting edema which is chronic Objective Data Vital Signs Vital Signs: Vital Signs - 24 hr 05/20/25 12:00 05/20/25 13:17 05/20/25 16:00 Temperature Pulse Rate 78 79 71 Respiratory Rate 18 Blood Pressure 115/52 L Pulse Oximetry 94 Oxygen Delivery 05/20/25 20:00 05/20/25 20:21 05/20/25 21:55 Temperature 36.5 C Pulse Rate 84 77 Respiratory Rate 16 Blood Pressure 117/58 L Pulse Oximetry 97 Oxygen Delivery Room Air 05/20/25 22:03 05/21/25 00:00 05/21/25 00:10 Temperature Pulse Rate 77 66 72 Respiratory Rate Blood Pressure Pulse Oximetry 94 Oxygen Delivery 05/21/25 04:00 05/21/25 05:07 05/21/25 05:16 Temperature 36.7 C Pulse Rate 73 63 72 Respiratory Rate 16 Blood Pressure 97/56 L Pulse Oximetry 93 94 Oxygen Delivery Intake/Output Intake/Output: Intake & Output 05/18/25 05/19/25 05/20/25 05/21/25 23:59 23:59 23:59 23:59 Intake Total 2340 1360 2110 590 Output Total 315 302 8130 Balance 1365 785 810 590 Meds/Results Medications: Active Medications Generic Name Dose Route Start Last Admin Trade Name Freq PRN Reason Stop Dose Admin Acetaminophen 1,000 mg 05/14/25 23:34 05/14/25 23:56 Acetaminophen 500 Mg Tablet PO 1,000 mg Q6H PRN Administration Mild Pain (1-3) or Fever Aspirin 81 mg 05/15/25 09:00 05/21/25 08:09 Aspirin 81 Mg Enteric Tablet PO 81 mg DAILY SCHUYLER Administration Atorvastatin Calcium 80 mg 05/15/25 09:00 05/21/25 08:08 Atorvastatin 40 Mg Tablet PO 80 mg DAILY SCHU[facility]ER Administration Bumetanide 2 mg 05/19/25 09:00 05/21/25 08:20 Bumetanide 1 Mg Tablet PO Not Given BID SCHUYLER Clopidogrel Bisulfate 75 mg 05/15/25 09:00 05/21/25 08:09 Clopidogrel Bisulfate 75 Mg Tablet PO 75 mg QAM SCHUYLER Administration Cyanocobalamin 1,000 mcg 05/15/25 09:00 05/21/25 08:09 Cyanocobalamin 1,000 Mcg Tablet PO 1,000 mcg QAM SCHU[facility]ER Administration Dextrose 12.5 gm 05/14/25 12:48 Dextrose 50% 25 Gm/50 Ml Syringe IV PUSH PRN PRN Hypoglycemia Protocol Diclofenac Sodium 1 applic 05/14/25 21:00 05/21/25 08:09 Diclofenac Sodium 1% 100 Gm Gel (*Bkc) TOPICAL 1 applic QID SCHU[facility]ER Administration Diphenoxylate HCl/Atropine 1 tablet 05/14/25 19:10 Diphenoxylate/Atropine (*Crx) 2.5 Mg Tablet PO QID PRN Diarrhea Empagliflozin 10 mg 05/20/25 09:00 05/21/25 08:09 Empagliflozin 10 Mg Tablet PO 10 mg DAILY SCHUYLER Administration Fish Oil 1 gm 05/14/25 21:00 05/21/25 08:10 [place] 3 Polyunsat Fatty Acids 1 Gm Cap PO 1 gm Q12HR SCHUYLER Administration Fluoxetine HCl 20 mg 05/14/25 21:00 05/20/25 22:02 Fluoxetine Hcl 20 Mg Capsule PO 20 mg HS SCHU[facility]ER Administration Fluticasone Propionate 1 spray 05/15/25 09:00 05/21/25 08:10 Fluticasone Propionate 0.05% Na Spr 16 Gm Btl (*Bkc) NASAL 1 spray BID SCHU[facility]ER Administration Gabapentin 600 mg 05/14/25 21:00 05/21/25 08:09 Gabapentin 300 Mg Capsule PO 600 mg Q12HR [facility]ER Administration Glucagon 1 mg 05/14/25 12:48 Glucagon For Inj 1 Mg Vial IM PRN PRN Hypoglycemia Protocol Glucose 15 gm 05/14/25 12:48 Glucose Oral Gel 15 Gm Of Glucse In 37.5 Gm Tube PO PRN PRN Hypoglycemia Protocol Heparin Sodium (Porcine) 5,000 units 05/16/25 14:00 05/21/25 05:40 Heparin Sodium 5,000 Units/Ml Vial SUB-Q 5,000 units Q8HR SCHU[facility]ER Administration Dextrose 1,000 mls @ 100 mls/hr 05/14/25 12:48 Dextrose 5% 1,000 Ml IVPB PRN PRN Hypoglycemia Protocol Insulin Aspart 4 - 8 units 05/14/25 17:00 05/21/25 08:20 Insulin Aspart (*Bkc) 100 Units/Ml SUB-Q Not Given TIDWM [facility]ER Protocol Insulin Aspart 15 units 05/17/25 12:00 05/21/25 08:16 Insulin Aspart (*Bkc) 100 Units/Ml SUB-Q 15 units TIDWM SCHU[facility]ER Administration Insulin Glargine 90 units 05/21/25 21:00 Insulin Glargine (*Bkc) 100 Units/Ml SUB-Q HS SCHU[facility]ER Loratadine 10 mg 05/15/25 09:00 05/21/25 08:09 Loratadine 10 Mg Tablet PO 10 mg DAILY SCHU[facility]ER Administration Metoprolol Succinate 25 mg 05/18/25 21:00 05/20/25 22:03 Metoprolol Succinate Ext Rel 25 Mg Tabcr PO 25 mg Q12HR SCHU[facility]ER Administration Pantoprazole Sodium 40 mg 05/15/25 09:00 05/21/25 08:09 Pantoprazole 40 Mg Tablet PO 40 mg QAM SCHU[facility]ER Administration Pramipexole Dihydrochloride 1 mg 05/14/25 21:00 05/20/25 22:03 Pramipexole 1 Mg Tablet PO 1 mg QHS SCHUYLER Administration Quetiapine Fumarate 50 mg 05/14/25 21:00 05/20/25 22:02 Quetiapine Fumarate 25 Mg Tablet PO 50 mg HS SCHUYLER Administration Sacubitril/Valsartan 1 tab 05/20/25 21:00 05/21/25 08:20 Sacubitril/Valsartan 24-26 Mg Tablet PO Not Given Q12HR SCHUYLER Tizanidine HCl 4 mg 05/14/25 19:10 Tizanidine Hcl 4 Mg Tablet PO QHS PRN Muscle Spasticity Trazodone HCl 50 mg 05/14/25 21:00 05/20/25 22:02 Trazodone Hcl 50 Mg Tablet PO 50 mg HS SCHUYLER Administration Radiology Results: ITS Impressions Abdomen/Pelvis CT 05/14/25 11:30 IMPRESSION: 1. No acute findings. Chest X-Ray 05/16/25 09:25 IMPRESSION: 1. Persistent bibasilar atelectasis and/or airspace disease. Renal Ultrasound 05/16/25 15:06 IMPRESSION: 1. Normal kidneys without hydronephrosis. Labs Labs: Laboratory Results - last 24 hr 05/20/25 05/20/25 05/20/25 11:56 17:15 20:25 WBC RBC Hgb Hct MCV MCH MCHC RDW Plt Count MPV Immature Gran % (Auto) Neut % (Auto) Lymph % (Auto) [place] % (Auto) Eos % (Auto) Baso % (Auto) Lymph # (Auto) [place] # (Auto) Eos # (Auto) Baso # (Auto) Abs Immat Gran (auto) Absolute Neuts (auto) Absolute Nucleated RBC Total Counted Neutrophils % (Manual) Band Neutrophils % Lymphocytes % (Manual) Monocytes % (Manual) Eosinophils % (Manual) Basophils % (Manual) Myelocytes % Nucleated RBC % Abs Neuts (Manual) Abs Lymphs (Manual) Abs Monocytes (Manual) Absolute Eos (Manual) Abs Basophils (Manual) Smudge Cells Platelet Estimate Anisocytosis Schistocytes Sodium Potassium Chloride Carbon Dioxide Anion Gap BUN Creatinine Estim Creat Clear Calc Estimated GFR Glucose POC Capillary Glucose 200 H 197 H 231 H Calcium Phosphorus Magnesium Total Bilirubin AST ALT Alkaline Phosphatase Total Protein Albumin 05/21/25 05/21/25 04:49 07:52 WBC 13.3 H RBC 4.48 L Hgb 12.4 L Hct 39.8 L MCV 88.8 MCH 27.7 MCHC 31.2 L RDW 17.7 H Plt Count 230 MPV 10.5 H Immature Gran % (Auto) Not Reportable Neut % (Auto) Not Reportable Lymph % (Auto) Not Reportable [place] % (Auto) Not Reportable Eos % (Auto) Not Reportable Baso % (Auto) Not Reportable Lymph # (Auto) Not Reportable [place] # (Auto) Not Reportable Eos # (Auto) Not Reportable Baso # (Auto) Not Reportable Abs Immat Gran (auto) Not Reportable Absolute Neuts (auto) Not Reportable Absolute Nucleated RBC Not Reportable Total Counted 100 Neutrophils % (Manual) 82 H Band Neutrophils % 2 Lymphocytes % (Manual) 9.0 L Monocytes % (Manual) 2 L Eosinophils % (Manual) 2 Basophils % (Manual) 2 H Myelocytes % 1 Nucleated RBC % Not Reportable Abs Neuts (Manual) 11.17 H Abs Lymphs (Manual) 1.19 Abs Monocytes (Manual) 0.26 Absolute Eos (Manual) 0.26 Abs Basophils (Manual) 0.26 H Smudge Cells Present Platelet Estimate Adequate Anisocytosis 1+ Schistocytes None seen Sodium 136 L Potassium 3.6 Chloride 102 Carbon Dioxide 29 Anion Gap 5 BUN 56 H Creatinine 2.42 H Estim Creat Clear Calc 42 Estimated GFR 26 L Glucose 173 H POC Capillary Glucose 177 H Calcium 8.7 Phosphorus 2.8 Magnesium 1.8 Total Bilirubin 0.5 AST 40 ALT 22 Alkaline Phosphatase 63 Total Protein 6.1 L Albumin 3.1 L
[2025-05-21] MEDS: BUMETANIDE 1 MG TABLET 2 MG PO (17:36)
[2025-05-21] MEDS: METOPROLOL SUCCINATE EXT REL 25 MG TABCR PO (22:39)
[2025-05-21] MEDS: PRAMIPEXOLE 1 MG TABLET PO (22:40)
[2025-05-21] MEDS: SACUBITRIL/VALSARTAN 12-13 MG TABLET 1 TAB PO (22:41)
[2025-05-21] MEDS: INSULIN GLARGINE (*BKC) 100 UNITS/ML 90 UNITS SUB-Q (22:43)
[2025-05-22] VITALS (9 sets, daily range): BP systolic 100–114; BP diastolic 49–56; PULSE 70–91; RESP 16–19; TEMP 35.9–36.6; O2SAT 93–98
[2025-05-22 05:33] LABS: Hematocrit 38.5 % (42.0-52.0); Hemoglobin 11.8 g/dL (14.0-18.0); Immature Granulocyte Percent A 7.1 % (0-0.5); Lymphocytes Absolute Auto 1.40 K/mm3 (0.9-3.2); Mean Corpuscular HGB Conc 30.6 g/dl (32-36); Mean Corpuscular Hemoglobin 27.4 pg (26-34); Mean Corpuscular Volume 89.3 fl (80-100); Nucleated Red Blood Cells Absolute Auto 0.000 K/mm3 (0.0-0.012); Nucleated Red Blood Cells Perc 0.0 % (0.0-0.2); Platelet Count Result 233 k/mm3 (150-375); Red Blood Count 4.31 M/mm3 (4.6-6.20); White Blood Count 11.7 K/mm3 (4.5-10.0)
[2025-05-22 06:00] LABS: Alanine Aminotransferase 28 U/L (6-50); Albumin Level 3.0 g/dL (3.5-5.1); Alkaline Phosphatase 59 U/L (38-126); Anion Gap 6 mmol/L (4-12); Aspartate Amino Transferase 52 U/L (17-59); Bilirubin,Total 0.4 mg/dL (0.2-1.3); Blood Urea Nitrogen 60 mg/dL (9-20); Calcium 8.6 mg/dL (8.4-10.2); Carbon Dioxide 28 mmol/L (22-30); Chloride 103 mmol/L (98-107); Estimated CRCL calculation 38 ml/min; Estimated Glomerular Filt Rate 23; Glucose 129 mg/dL (65-110); Magnesium 1.7 mg/dL (1.6-2.3); Potassium 4.0 mmol/L (3.4-5.0); Sodium 137 mmol/L (137-145); Total Protein 5.8 g/dL (6.3-8.2)
[2025-05-22] MEDS: ASPIRIN 81 MG ENTERIC TABLET PO (08:55)
[2025-05-22] MEDS: CLOPIDOGREL BISULFATE 75 MG TABLET PO (08:56)
[2025-05-22] MEDS: BUMETANIDE 1 MG TABLET 2 MG PO (08:56)
[2025-05-22] MEDS: ATORVASTATIN 40 MG TABLET 80 MG PO (08:56)
[2025-05-22] MEDS: LORATADINE 10 MG TABLET PO (08:57)
[2025-05-22] MEDS: EMPAGLIFLOZIN 10 MG TABLET PO (08:57)
[2025-05-22] MEDS: METOPROLOL SUCCINATE EXT REL 25 MG TABCR PO (08:57)
[2025-05-22] MEDS: PANTOPRAZOLE 40 MG TABLET PO (08:57)
[2025-05-22] MEDS: SACUBITRIL/VALSARTAN 12-13 MG TABLET 1 TAB PO (08:57)
[2025-05-22] MEDS: CYANOCOBALAMIN 1,000 MCG TABLET 1000 MCG PO (08:57)
[2025-05-22] MEDS: GABAPENTIN 300 MG CAPSULE 600 MG PO (08:58)
[2025-05-22] MEDS: OMEGA 3 POLYUNSAT FATTY ACIDS 1 GM CAP PO (08:58)
[2025-05-22] MEDS: INSULIN ASPART (*BKC) 100 UNITS/ML 15 UNITS SUB-Q ×2 (08:59→11:48)
[2025-05-22] MEDS: INSULIN ASPART (*BKC) 100 UNITS/ML SUB-Q (11:48)
--- NOTE | 2025-05-22 14:26 | P.DS_ITS ---
DS: Admitting Diagnosis Discharge Date 05/22/2025 Admitting Diagnosis Altered mental status, sepsis, respiratory failure with hypoxia DS: Discharge Diagnosis Discharge Diagnosis (1) Sepsis: Code(s): A41.9 - Sepsis, unspecified organism Status: Acute Assessment and Plan: (2) Elevated troponin: Code(s): R79.89 - Other specified abnormal findings of blood chemistry Status: Acute Assessment and Plan: Type 2 NSTEMI in the setting of DAWNA on chronic kidney disease. Troponin plateau. Likely 2/2 Demand mismatch. Chest pain free. (3) Acute and chronic respiratory failure (lqhee-dr-btssakg): Code(s): J96.20 - Acute and chronic respiratory failure, unspecified whether with hypoxia or hypercapnia Status: Acute (4) Altered mental status: Code(s): R41.82 - Altered mental status, unspecified Status: Acute Assessment and Plan: Resolved Likely secondary to aspiration pneumonia, acute hypoxic hypercapnic respiratory failure secondary to obesity hypoventilation syndrome and systolic heart failure (5) Acute UTI: Code(s): N39.0 - Urinary tract infection, site not specified Status: Acute Assessment and Plan: Completed IV antibiotics (6) Hypomagnesemia: Code(s): E83.42 - Hypomagnesemia Status: Acute Assessment and Plan: Repleted as needed (7) Congestive heart failure: Qualifiers: Heart failure chronicity: acute on chronic Heart failure type: systolic Qualified Code(s): I50.23 - Acute on chronic systolic (congestive) heart failure Code(s): I50.9 - Heart failure, unspecified Status: Acute Assessment and Plan: -Compatible was systolic heart failure in the setting of coronary artery disease. EF 30-35% - on room air at rest, and 3 L NC on exertion, BIPAP at night for obesity hypoventilation syndrome -IV Bumex switched to p.o. -continue Bumex 2 mg b.i.d., daily standing weight, strict I&Os, Na <2g daily -continue metoprolol succinate and farxiga -D/w Cardiology to initiate Entresto for GDMT -continue Entresto 24mg /25 mg BID as long as systolic blood pressure greater than 100/60 -continue Asa/plavix/statin (8) CKD (chronic kidney disease): Code(s): N18.9 - Chronic kidney disease, unspecified Status: Chronic Assessment and Plan: -creatinine increased today from 2.18-2.42. This elevation is expected and Entresto. His blood pressure was also in the low side. Will keep the patient for 1 night to monitor his blood pressure and his kidney function. -renal ultrasound with normal kidney size and without evidence of hydronephrosis -daily bmp (9) Type 2 diabetes mellitus with hyperglycemia: Qualifiers: Diabetes mellitus half-way insulin use: with supervisor long goods use Qualified Code(s): E11.65 - Type 2 diabetes mellitus with hyperglycemia; Z79.4 - custodial (current) use of insulin Code(s): E11.65 - Type 2 diabetes mellitus with hyperglycemia Status: Chronic Assessment and Plan: -HGB A1c 8.9 on admit, home dose lantus 100 units daily -increase lantus 90 units HS -COntinue farxiga with formulation -SSI, POCT and hypoglycemia protocol -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 Ready to d/sandra from Pulm standing point Changed to AVAPS setting at night here and setting being changed for discharge Plan DVT prophylaxis heparin subQ Disposition: PT OT to see DS: Summary Hospital Course Reason for hospitalization: Altered mental status Hospital Course: Per HPI: This is a 74 year old male patient admitted to the hospital for sepsis, UTI, altered mental status and acute on chronic respiratory failure with hypoxia. Patient reports that his and nephew brought him in because he ?wasn?t acting right.? He endorses shortness of breath and feels ?a lot better? at the time of evaluation. Denies chest pain, nausea, and vomiting. Reports fever and chills of uncertain duration, likely less than 1?2 days. Urinary tract infection identified during ED evaluation. Urinary symptoms: denies dysuria or difficulty initiating stream; notes frequent urination. Breathing: currently denies trouble breathing during interview, though required supplemental oxygen during the day today and uses BiPAP with 4 L O2 at night for known obstructive sleep apnea. Abdominal symptoms: mild, diffuse abdominal tenderness without realizing beforehand that abdomen was bothersome. Bowel movements have been normal; denies diarrhea. Past medical history includes diabetes mellitus and obstructive sleep apnea. No continuous daytime oxygen use at baseline; uses oxygen only at night with BiPAP. Echocardiogram obtained on 05/15: 1. Left ventricular systolic function is normal, estimated at 30-35. 2. The left ventricular diastolic function is abnormal. 3. The apex, and anteroseptal wall are hypokinetic. 4. Technically difficult study. Pulmonology consulted regarding acute on chronic respiratory failure with hypoxia and hypercapnia. Recommend continuing vancomycin, cefepime, Flagyl and doxycycline. Will send a respiratory panel, urine for Legionella, urine for pneumococcal, and serum for mycoplasma IgG and. Patient had peripheral edema but responded with aggressive diuresis as tolerated by his cardiac/renal systems. Cardiology consulted regarding elevated troponin. Troponins slightly elevated at normal range with the pattern is not indicative of ACS nor does the patient have any symptoms suggesting ACS. Cardiology signed have any specific cardiac recommendations regarding troponin, recommend routine follow-up in the outpatient setting. Over next few days, patient's mental status returned to baseline and breathing is back at baseline. ABG had a maximal rate of 20 and tidal volume 550, patient is also in renal failure with a creatinine of 3.18 and serum bicarb of 28. Plan to continue current AVAPS settings and perform overnight oximetry on 36% FiO2. Leukocytosis continued to improve throughout hospitalization. He was able to be weaned down off O2 saturations steadily throughout visit as well. Per pulmonology patient had a following results overnight oximetry on 05/19 - 05/20: ecording duration of 6 hours and 55 minutes. Average saturation 93%. Low saturation 81%. Time with saturation less than or equal to 88% was 32 minutes. Oxygen desaturation index 8.9 9. Patient was me that at 4:00 a.m. his mask came off and this correlated to the time of saturation less than 88%. Otherwise saturations were predominantly in the mid 90s with to brief episodes below 88%. At this point on 05/20, patient was ready for discharge from a pulmonology perspective with the following medications: Loratadine 10 mg p.o. q.day, Flonase 1 spray each nostril twice daily, no oxygen at rest and 3 L with activity, along with the following recommendations: When he naps or sleeps: [employer] with loaner BiPAP rate of 20, pressures 20/10 and 4 L bleed in. diuretics per Cardiology and hospitalist team. Currently the patient is on Bumex [address] James of pulmonology also gave him his buisness card for follow-up with pulmonology clinic in 4 weeks. Cardiology continued to follow the patient hospitalization as patient's creatinine remained elevated. Does have a history of CKD with a baseline of creatinine near to, however he has been hovering around creatinine of 2.5. Patient's Entresto was decreased down to 12/13 mg p.o. b.i.d. and will need continued observation. He has changed his antibiotic course and can be otherwise discharged at this time. Cardiology recommends obtaining a BMP in 1 week to monitor his creatinine. Patient is being discharged on home health services and can have this obtained their services. Patient to be discharged at this. Status at Discharge Functional status at discharge: uses cane/walker Overall status at discharge: patient is progressing back to baseline Time Spent with Patient Time attestation: Total time spent providing and/or coordinating discharge services: 36 Exam Narrative: APPEARANCE: Morbidly obese EYES: EOMI HEENT: Normocephalic, atraumatic, OMM RESPIRATORY: No respiratory distress Clear to auscultation bilaterally with no rhonchi wheezing or rales. CARDIOVASCULAR: RRR, S1 and S2 without murmurs rubs or gallops. ABDOMINAL: Soft, nontender, nondistended, no rebound or guarding MSK: Significant swelling in the lower extremities which is chronic NEURO: Awake and alert. Following commands, speech normal, no focal deficits SKIN:: Warm, dry. No rashes lesions or abrasions PSYCHIATRIC: Normal affect/mood DS: Data Data Completed and Pending Labs on day of discharge: Labs from last 24 hours 05/22/25 05/22/25 05/22/25 11:39 07:44 04:31 WBC 11.7 H RBC 4.31 L Hgb 11.8 L Hct 38.5 L MCV 89.3 MCH 27.4 MCHC 30.6 L RDW 17.9 H Plt Count 233 MPV 10.5 H Immature Gran % (Auto) 7.1 H Neut % (Auto) 69.3 Lymph % (Auto) 11.9 L [place] % (Auto) 6.6 Eos % (Auto) 4.3 Baso % (Auto) 0.8 Lymph # (Auto) 1.40 [place] # (Auto) 0.8 H Eos # (Auto) 0.5 H Baso # (Auto) 0.1 Abs Immat Gran (auto) 0.83 H Absolute Neuts (auto) 8.2 H Absolute Nucleated RBC 0.000 Nucleated RBC % 0.0 Sodium 137 Potassium 4.0 Chloride 103 Carbon Dioxide 28 Anion Gap 6 BUN 60 H Creatinine 2.68 H Estim Creat Clear Calc 38 Estimated GFR 23 L Glucose 129 H POC Capillary Glucose 210 H 168 H Calcium 8.6 Phosphorus 3.8 Magnesium 1.7 Total Bilirubin 0.4 AST 52 ALT 28 Alkaline Phosphatase 59 Total Protein 5.8 L Albumin 3.0 L 05/21/25 05/21/25 20:19 16:38 WBC RBC Hgb Hct MCV MCH MCHC RDW Plt Count MPV Immature Gran % (Auto) Neut % (Auto) Lymph % (Auto) [place] % (Auto) Eos % (Auto) Baso % (Auto) Lymph # (Auto) [place] # (Auto) Eos # (Auto) Baso # (Auto) Abs Immat Gran (auto) Absolute Neuts (auto) Absolute Nucleated RBC Nucleated RBC % Sodium Potassium Chloride Carbon Dioxide Anion Gap BUN Creatinine Estim Creat Clear Calc Estimated GFR Glucose POC Capillary Glucose 165 H 169 H Calcium Phosphorus Magnesium Total Bilirubin AST ALT Alkaline Phosphatase Total Protein Albumin Discharge Plan Discharge Attending physician on discharge: Rustam Huffman Oca Consulting providers: Jer Dill; Leo James; David Llanes Discharging Clinician: David Llanes Anticipated Discharge Date/Time: 05/22/25 14:24 Patient Disposition: Home with Home Health Service Activity: no straining Diet: regular Discharge Instructions: Per Care Coordination: [facility] ([phone]) will call to set up initial visit. Discharge disposition: Home with home health Take medications as prescribed Monitor blood pressures Take caution while standing, rising, or moving Change positions slowly taking a break between each position change If you standing feel dizzy sit back down and take a break Encouraged to continue with yearly vaccinations Return to the emergency department if you develop sudden shortness of breath, chest pain, nausea, vomiting, upset stomach or intractable diarrhea Return to the emergency department if you develop fever greater than 101.5 Follow-up with the primary care physician within 1-2 weeks Thank you for choosing [facility] for your healthcare needs Patient Instructions: Antibiotic Form, Heart Failure (DC) Patient Language: Uzbek Stand Alone Forms: General Discharge Information Follow-up/Referrals: Leo Doss MD [Primary Care Provider, Family Practice] Discharge Medications: Continued aspirin 81 mg Tablet,Delayed Release (Dr/Ec) 81 mg PO DAILY loratadine [Claritin] 10 mg tablet 10 mg PO DAILY Qty: 90 3RF ferrous sulfate 325 mg (65 mg iron) tablet 325 mg PO .QOD diphenoxylate-atropine [Lomotil] 2.5-0.025 mg tablet 1 tablet PO QID PRN (Reason: Diarrhea) omega 3-ado-uty-fish oil [Fish Oil] 1,200 (144-216) mg Capsule 1 cap PO BID cyanocobalamin (vitamin B-12) [Vitamin B-12] 1,000 mcg Tablet 1,000 mcg PO QAM Qty: 30 0RF (DME) FreeStyle Michelle 3 [place] Misc See Rx Instructions .Route Qty: 1 0RF Rx Instructions: As directed diclofenac sodium [Arthritis Pain (diclofenac)] 1 % gel 4 g topical QID Qty: 100 1RF Rx Instructions: apply to bilateral knees QID fluticasone propionate [Flonase Allergy Relief] 50 mcg/actuation spray,suspension 1 spray intranasal BID Qty: 48 3RF Rx Instructions: administer into each nostril metoprolol tartrate 25 mg tablet 12.5 mg PO BID Qty: 180 3RF triamcinolone acetonide 0.1 % cream See Rx Instructions .ROUTE .COMPLEX Qty: 80 0RF Dose Instruction: APPLY TOPICALLY TO THE AFFECTED AREA FOUR TIMES DAILY Rx Instructions: APPLY TOPICALLY TO THE AFFECTED AREA FOUR TIMES DAILY clopidogrel 75 mg tablet See Rx Instructions .ROUTE .COMPLEX Qty: 100 2RF Dose Instruction: TAKE 1 TABLET BY MOUTH DAILY Rx Instructions: TAKE 1 TABLET BY MOUTH DAILY (DME) FreeStyle Michelle 3 Sensor Device See Rx Instructions .Route Qty: 13 1RF Rx Instructions: Change every 14 days. atorvastatin 80 mg tablet See Rx Instructions .ROUTE .COMPLEX Qty: 100 2RF Dose Instruction: TAKE 1 TABLET BY MOUTH ONCE DAILY Rx Instructions: TAKE 1 TABLET BY MOUTH ONCE DAILY quetiapine 50 mg tablet See Rx Instructions .ROUTE .COMPLEX Qty: 100 2RF Dose Instruction: TAKE 1 TABLET BY MOUTH EVERY NIGHT AT BEDTIME Rx Instructions: TAKE 1 TABLET BY MOUTH EVERY NIGHT AT BEDTIME Ozempic 2 mg/dose (8 mg/3 mL) pen injector See Rx Instructions .ROUTE .COMPLEX Qty: 9 3RF Dose Instruction: INJECT SUBCUTANEOUSLY 2MG WEEKLY Rx Instructions: INJECT SUBCUTANEOUSLY 2MG WEEKLY trazodone 100 mg tablet See Rx Instructions .ROUTE .COMPLEX Qty: 50 2RF Dose Instruction: TAKE ONE-HALF TABLET BY MOUTH AT BEDTIME Rx Instructions: TAKE ONE-HALF TABLET BY MOUTH AT BEDTIME (DME) OneTouch Ultra Test Strip See Rx Instructions .ROUTE .COMPLEX Qty: 400 2RF Dose Instruction: USE TO TEST BLOOD SUGAR 4 TIMES DAILY Rx Instructions: USE TO TEST BLOOD SUGAR 4 TIMES DAILY (DME) pen needle, diabetic 32 gauge x /32 needle See Rx Instructions .ROUTE .MEDSUPPLY Qty: 400 3RF Rx Instructions: Use with Insulin 2 TID ( 6 needles /day) dapagliflozin propanediol [Farxiga] 5 mg tablet 5 mg PO DAILY Qty: 90 3RF Rx Instructions: USE BRAND PLEASE gabapentin 600 mg tablet See Rx Instructions .ROUTE .COMPLEX Qty: 300 1RF Dose Instruction: TAKE 2 TABLETS BY MOUTH TWICE DAILY Rx Instructions: TAKE 1 TABLET in AM, 2 tablets at night pantoprazole 40 mg tablet,delayed release (DR/EC) See Rx Instructions .ROUTE .COMPLEX Qty: 100 2RF Dose Instruction: TAKE 1 TABLET BY MOUTH DAILY Rx Instructions: TAKE 1 TABLET BY MOUTH DAILY insulin lispro [Humalog KwikPen Insulin] 100 unit/mL insulin pen See Rx Instructions .ROUTE .COMPLEX Qty: 75 2RF Dose Instruction: INJECT 15 UNITS SUBCUTANEOUSLY 3 TIMES DAILY WITH MEALS . USE PER SLIDING SCALE Rx Instructions: INJECT 15 UNITS SUBCUTANEOUSLY 3 TIMES DAILY WITH MEALS . USE PER SLIDING SCALE albuterol sulfate 90 mcg/actuation HFA aerosol inhaler See Rx Instructions .ROUTE .COMPLEX Qty: 25.5 2RF Dose Instruction: USE 1 TO 2 INHALATIONS BY MOUTH EVERY 4 TO 6 HOURS NEEDED FOR SHORTNESS OF BREATH OR WHEEZING Rx Instructions: USE 1 TO 2 INHALATIONS BY MOUTH EVERY 4 TO 6 HOURS NEEDED FOR SHORTNESS OF BREATH OR WHEEZING fluoxetine 20 mg tablet See Rx Instructions .ROUTE .COMPLEX Qty: 90 1RF Dose Instruction: TAKE ONE TABLET BY MOUTH DAILY AT 9 PM AT BEDTIME Rx Instructions: TAKE ONE TABLET BY MOUTH DAILY AT 9 PM AT BEDTIME Lantus Solostar U-100 Insulin 100 unit/mL (3 mL) insulin pen See Rx Instructions .ROUTE .COMPLEX Qty: 75 1RF Dose Instruction: INJECT SUBCUTANEOUSLY 75 UNITS AT BEDTIME Rx Instructions: INJECT SUBCUTANEOUSLY 75 UNITS AT BEDTIME pramipexole 1 mg tablet 1 mg PO QHS Qty: 100 1RF hydrocodone-acetaminophen 5-325 mg tablet 1 tablet PO Q6H PRN (Reason: pain) Qty: 60 0RF tizanidine 4 mg tablet 4 mg PO QHS PRN (Reason: muscle spasticity) Qty: 100 1RF bumetanide 2 mg tablet See Rx Instructions .ROUTE .COMPLEX Qty: 100 1RF Dose Instruction: TAKE 1 TABLET BY MOUTH DAILY Rx Instructions: TAKE 1 TABLET BY MOUTH DAILY (DME) lancets [FlockTAGTouch Delica Plus Lancet] 30 gauge misc See Rx Instructions .ROUTE .COMPLEX Qty: 400 2RF Dose Instruction: USE TO TEST BLOOD SUGARS 4 TIMES DAILY Rx Instructions: USE TO TEST BLOOD SUGARS 4 TIMES DAILY nitroglycerin 0.4 mg tablet, sublingual See Rx Instructions .ROUTE .COMPLEX Qty: 125 2RF Dose Instruction: DISSOLVE 1 TABLET UNDER THE TONGUE EVERY 5 MINUTES NEEDED FOR CHEST PAIN. MAX OF 3 TABLETS IN 15 MINUTES. CALL 911 IF PAIN PERSISTS. Rx Instructions: DISSOLVE 1 TABLET UNDER THE TONGUE EVERY 5 MINUTES NEEDED FOR CHEST PAIN. MAX OF 3 TABLETS IN 15 MINUTES. CALL 911 IF PAIN PERSISTS. ergocalciferol (vitamin D2) [Vitamin D2] 1,250 mcg (50,000 unit) capsule See Rx Instructions .ROUTE .COMPLEX Qty: 15 2RF Dose Instruction: TAKE 1 CAPSULE BY MOUTH WEEKLY ON WEDNESDAYS Rx Instructions: TAKE 1 CAPSULE BY MOUTH WEEKLY ON WEDNESDAYS Discontinued (DME) blood-glucose meter [FlockTAGTouch Ultra2 Meter] Kit See Rx Instructions .Route Qty: 1 3RF Rx Instructions: As directed Other Ambulatory Orders: Basic Metabolic Panel (Routine) Timeframe: 1 Week Location: Determined by Patient Ordered By: David Llanes Date of admission: 05/14/25 12:38 Primary Care Provider: Leo Doss Admitting Provider: Carla Connors Attending physician on admission: Carla Connors Condition: Stable Quality VTE Prophylaxis VTE prophylaxis: pharmacologic ordered (Lovenox 40 mg BID (due to weight))
[2025-05-22] MEDS: INFLUENZA VACCINE 45 MCG/0.5 ML SYRINGE IM (14:36)
== END 2025-05-22 15:29 | disposition home health service (06) | DRG 871 ==
LOC: ANHED 12:44 → ANHIMU 13:56 → ANH2MED 05-19 03:55
PROVIDERS: Internal Medicine; Internal Medicine Pulmonary Disease; Nurse Practitioner; Admitting Provider General Practice; Emergency Provider Emergency Medicine; PCP Family Medicine; Visit Provider Physician Assistant
DX: A41.9 Sepsis, unspecified organism (principal); I50.43 Acute on chronic combined systolic (congestive) and diastolic (congestive) heart failure; J18.9 Pneumonia, unspecified organism; J96.21 Acute and chronic respiratory failure with hypoxia; J96.22 Acute and chronic respiratory failure with hypercapnia; J69.0 Pneumonitis due to inhalation of food and vomit; N39.0 Urinary tract infection, site not specified; I13.0 Hypertensive heart and chronic kidney disease with heart failure and stage 1 through stage 4 chronic kidney disease, or unspecified chronic kidney disease; I24.89 Other forms of acute ischemic heart disease; I42.9 Cardiomyopathy, unspecified; N17.9 Acute kidney failure, unspecified; E66.2 Morbid (severe) obesity with alveolar hypoventilation; Z68.44 Body mass index [BMI] 60.0-69.9, adult; I25.10 Atherosclerotic heart disease of native coronary artery without angina pectoris; I27.20 Pulmonary hypertension, unspecified; N18.9 Chronic kidney disease, unspecified; E11.22 Type 2 diabetes mellitus with diabetic chronic kidney disease; E11.40 Type 2 diabetes mellitus with diabetic neuropathy, unspecified; E11.319 Type 2 diabetes mellitus with unspecified diabetic retinopathy without macular edema; E83.42 Hypomagnesemia; E78.00 Pure hypercholesterolemia, unspecified; K21.9 Gastro-esophageal reflux disease without esophagitis; Z20.822 Contact with and (suspected) exposure to COVID-19; Z23 Encounter for immunization; B34.8 Other viral infections of unspecified site; R11.2 Nausea with vomiting, unspecified; R60.1 Generalized edema; M15.9 Polyosteoarthritis, unspecified; G25.81 Restless legs syndrome; H26.9 Unspecified cataract; F10.91 Alcohol use, unspecified, in remission; F32.A Depression, unspecified; S31.809D Unspecified open wound of unspecified buttock, subsequent encounter; I25.2 Old myocardial infarction; Z79.82 Long term (current) use of aspirin; Z99.89 Dependence on other enabling machines and devices; Z95.1 Presence of aortocoronary bypass graft; Z99.81 Dependence on supplemental oxygen; Z85.72 Personal history of non-Hodgkin lymphomas; Z79.85 Long-term (current) use of injectable non-insulin antidiabetic drugs; Z79.4 Long term (current) use of insulin; Z79.891 Long term (current) use of opiate analgesic; Z95.2 Presence of prosthetic heart valve
CPT/HCPCS: 36415; 36600; 71045; 74176; 76770; 80053; 80069; 80202; 81001; 82375; 82550; 82805; 82948; 83036; 83050; 83605; 83735; 83880; 84100; 84145; 84439; 84443; 84484; 85018; 85025; 86140; 86738; 87040; 87086; 87186; 87449; 87493; 87637; 87641; 87899; 90471; 90656; 93005; 94002; 94003; 94618; 94640; 94660; 94762; 96365; 97110; 97116; 97162; 97166; 97530; 97535; 99285; A9270; C8929; G0008; J0692; J1644; J1650; J1815; J1836; J1939; J2405; J2919; J3373; J3475; J7120; Q9957

== ENCOUNTER 2025-06-02 13:04 | Outpatient (CLI) | payer MEDICARE, SELFPAY ==
--- OUTSIDE RECORDS SUMMARY | 2025-06-02 13:08 | XMS_ITS | Encounter Summary ---
Author Organization [facility] Address [address] [place] [address] Care Team Providers Care Integration Manager Name Role Phone Unavailable Primary Care Provider Unavailabl e Encounter Details Date Type Department Care Team (Late st Contact Info) Description 02/05/2018 Lab Requisition [facility] Care Pathology Lab [address] [place] [address] Neal Flores MD [address] [id number] Soft tissue disorder Social History [...] AM CDT) Case Report Flow Cytometry Case: [id number] Authorizing Provider: Neal Flores MD Collected: 02/05/2018 10:04 AM Pathologist: Keerthi Alston MD Received: 02/05/2018 01:44 PM Specimen: Soft Tissue Mass, RIGHT INGUINAL MASS 8 4:58 PM CDT [facility] Final Diagnosis Inguinal soft tissue mass, Right , Flow cytometric immunophenotypic analysis: - 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 - See interpretation. 8 [...] the flow cytometry specimen is reviewed for senior quality assurance specialist purposes. Overall, the right inguinal mass specimen shows evidence of involvement by a CD5-negative, [id number] mature B-cell lymphoma. Correlation with clinical findings and the concurrent tissue biopsy ([facility]; [id number]) is required for further classification. KR/HUMAN RESOURCES VICE PRESIDENT/vp securities 8 4:58 PM [facility] Flow Cytometry Results Differential Result Comment Flow Cell Count /uL 8100 Total Viability % 78.0 Lymphocytes % 88 Dim CD45 Region % 1 Monocytes % 4 Granulocytes % 0 8 4:58 PM [facility] Reason for test Soft tissue disorder 729.90 8 4:58 PM [facility] Client Specimen ID # [id number] 8 4:58 PM [facility] Number of markers 16 were performed. A Flow CD3 A Flow CD10 A Flow CD20 A Flow CD23 A Flow CD2 A Flow CD4 A Flow CD1a A Flow CD5 A Flow CD19 A Flow CD34 A Flow CD45 A Flow CD7 A Flow CD8 A Flow CD30 A Grandin+CD19+ A Lambda+CD19+ 8 4:58 PM [facility] Disclaimer Test performed at [facility], [address] [place] [address], [address]. *The established laboratory minimum viability is 70%. [...] clinical testing. 8 4:58 PM CDT [facility] Embedded Images 8 4:58 PM CDT [facility] Pathology/Cytolo gy SOFT TISSUE MASS / Unknown 02/05/2018 10:04 AM CDT 02/05/2018 1:44 PM CDT Neal Flores MD LAB - PATHOLOGY/CYTOLOGY ORDER ZAIN Final Result [facility] [address] [phone] documented in this encounter Visit Diagnoses Diagnosis Soft tissue disorder Disorders of soft tissue, unspecified documented in this encounter
--- OUTSIDE RECORDS SUMMARY | 2025-06-02 13:08 | XMS_ITS | Encounter Summary ---
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
--- OUTSIDE RECORDS SUMMARY | 2025-06-02 13:08 | XMS_ITS | Clinical Summary ---
Author Organization [facility] Address [address], [place] [address] Phone Care Team Providers Care Licensed Funeral Director And Embalmer Name Role Phone Leo Doss MD Primary Care Provider [phone] Allergies No known active allergies Medications clopidogrel (PLAVIX) 75 MG tablet 1 Active lisinopril (PRINIVIL) 10 MG tablet 1 Active ferrous sulfate 325 (65 Fe) MG tablet Take by mouth Active cholecalciferol (D3-50) 1.25 MG (54944 UT) capsule Take 100,000 Units by mouth once a week Active Janumet 50-1000 MG per tablet Take 1 tablet by mouth 2 (two) times a day 1 Active gabapentin (NEURONTIN) 600 MG tablet Take 1,200 mg by mouth daily Active QUEtiapine (SEROquel) 50 MG tablet Take 50 mg by mouth every night 1 Active [place]-3 Fatty Acids (Super [place]-3) 1000 MG capsule Take 1,200 mg by [...] tongue Active ergocalciferol (VITAMIN D2) 1.25 MG (41168 UT) capsule TAKE 1 CAPSULE BY MOUTH [...] (01/26/2021): Added automatically from request for surgery [id number] Coronary atherosclerosis 08/11/2017 Immunizations Immunization Administration Dates [...] 04/10/2017 Influenza Vaccine (#1) 2025 06/10/2021 Insurance [facility] MEDICARE ADVANTAGE MEDICAID - [place] Care Teams Licensed Funeral Director And Embalmer Relationship Specialty Start Date End Date Leo Doss MD [address] [place] [address] PCP - General Internal Medicine 01/21/21
--- OUTSIDE RECORDS SUMMARY | 2025-06-02 13:08 | XMS_ITS | Clinical Summary ---
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 Cardiology [address] [facility] [address] [place] [phone] Fannie De La Paz NP 05/23/2025 Orders Only [facility] Cardiology [address] [place] [address] [address] [place] [phone] Du Joel MD 05/16/2025 Orders Only [facility] Cardiology [address] [place] [address] [address] [place] [phone] Leo Ribeiro MD 04/13/2025 1:45 PM CDT Office Visit [facility] Cardiology [address] [place] [address] [address] [place] [phone] Leo Ribeiro MD S/P TAVR (transcatheter aortic valve replacement) (Primary Dx); History of coronary artery stent placement; Coronary artery disease involving sioux coronary artery of sioux heart without angina pectoris 03/08/2025 11:15 AM CDT Office Visit [facility] Medicine Orthopaedic Surgery [address] [facility] Medical Office Building [address] [place] [phone] Nu Lopez PA Primary osteoarthritis of [...] on file Legal Sex Male 5:59 PM DELI SLICER Gender Identity Not on file Sexual Orientation Not on file Obstetrics History Last Filed Vital Signs Vital Sign Reading Time Taken Comments Blood Pressure 154/62 04/13/2025 1:02 PM CDT Pulse 81 04/13/2025 1:02 PM CDT Temperature 36.9 C (98.4 F) 09/22/2020 8:10 AM DELI SLICER Respiratory Rate 94 04/13/2025 1:02 PM CDT Oxygen Saturation 95% 10/06/2024 9:36 AM DELI SLICER Inhaled Oxygen Concentration - - Weight 181.4 [...] 04/10/2017, 07/14/2012 Medical Devices Implanted Type Area Director Television News Device Identifier Shelf Expiration Date Model / Serial / Lot [employer] [id number] Gus 3 29mm Transcatheter Valve Aortic Bovine Sterile - [id number] - [id number] Implanted:Qty: 1 on 09/20/2020 by [place] Ballard MD at [facility] Prosthetic Valve [employer] 12/25/2021 [id number] / [id number] / [employer] [id number] Device Closure Angio-Seal Vip Bondek-Plus Polyglyd L70 Cm Od6 Fr Odsec.035 In Vascular - [id number] Implanted:Qty: 1 on 04/06/2020 by [place] Ballard MD at [facility] [employer] [id number] / / Procedures Procedure Name Priority Date/Time Associated Diagnosis Comments CARDIOLOGY DOCUMENT SCAN Routine 05/21/2025 12:24 PM CDT CARDIOLOGY DOCUMENT SCAN Routine 05/20/2025 12:14 PM CDT CARDIOLOGY DOCUMENT SCAN Routine 05/17/2025 2:39 PM CDT CARDIOLOGY DOCUMENT SCAN Routine 05/16/2025 2:22 PM CDT CARDIOLOGY DOCUMENT SCAN Routine 05/15/2025 4:18 PM CDT NC ARTHROCENTESIS ASPIR&/INJ MAJOR JT/BURSA W/O US Routine 03/08/2025 11:15 AM CDT Primary osteoarthritis of both knees POCT LIPID PANEL Routine 10/01/2023 2:49 PM DELI SLICER Lipid screening EGFR Routine 09/22/2020 5:41 AM DELI SLICER HEMOGLOBIN A1C Routine 04/04/2020 2:22 AM CDT from Last 3 Months or Most Recently Relevant to Health Maintenance Results * Cardiology Document Scan (05/21/2025 12:24 PM CDT) Anatomical Region Laterality Modality Other us Du Joel MD CV CARDIAC SERVICES PROCE DURES Final Result * Cardiology Document Scan (05/20/2025 12:14 PM CDT) Anatomical Region Laterality Modality Other us Du Joel MD CV CARDIAC SERVICES PROCE DURES Final Result * Cardiology Document Scan (05/17/2025 2:39 PM CDT) Anatomical Region Laterality Modality Other us Fannie De La Paz NP CV CARDIAC SERVICE S PROCEDURES Final Result * Cardiology Document Scan (05/16/2025 2:22 PM CDT) Anatomical Region Laterality Modality Other us Fannie De La Paz NP CV CARDIAC SERVICE S PROCEDURES Final Result * Cardiology Document Scan (05/15/2025 4:18 PM CDT) Anatomical Region Laterality Modality Other us Leo Ribeiro MD CV CARDIAC SERVICES PROC EDURES Final Result * NC ARTHROCENTESIS ASPIR&/INJ MAJOR JT/BURSA W/O US (03/08/2025 11:15 AM CDT) Narrative Nu Lopez PA - 03/08/2025 11:15 AM CDT Nu Lopez PA 03/08/2025 11:21 AM Large Joint Injection: bilateral knee Performed by: Nu Lopez PA Authorized by: uN Lpoez PA Large Joint Injection/Aspiration: Consent Given by: [...] * POCT lipid panel (10/01/2023 2:49 PM DELI SLICER) Cholesterol, POC 133 mg/dL HDL, POC 40 mg/dL Triglycerides, POC 172 mg/dL LDL Cholesterol POC 59 mg/dL Chol/HDL Ratio, POC 1.5 Non-HDL Cholesterol, POC 94 mg/dL Cholesterol Total, POC 133 mg/dL Capillary blood 10/01/2023 2 :49 PM DELI SLICER us Leo Ribeiro MD POINT OF CARE TEST ORDER ZAIN Final Result * eGFR (09/22/2020 5:41 AM DELI SLICER) eGFR 46 mL/min/1.7 3 m2 MANDI BURNS [...] 2020 Blood specimen (specimen) 09/22/2020 5:41 AM DELI SLICER 09/22/2020 6:16 AM DELI SLICER us [place] Ballard MD LAB BLOOD ORDERABLES Final Resul t Performing Organization Address City/[facility] Co de Phone Number MANDI BURNS [phone] [place] [place] [address] * (ABNORMAL) Hemoglobin A1c (04/04/2020 [...] and children were not included. (Diabetes Care 31:2251-8141, 2008). The eAG is not equivalent to a fasting glucose. 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 K.pneumonia tracheal aspiraate 04/07/20 04/07/2020 Insurance [place] [phone] Advance Directives For more information, please contact: [phone] * Full Code (Latest Code Status on File) Date Activated Date Inactivated Comments 09/20/2020 12:36 PM 09/22/2020 5:46 PM * Full Code Date Activated Date Inactivated Comments 04/02/2020 11:40 PM 04/22/2020 4:10 AM * Full Code Date Activated Date Inactivated Comments 04/02/2020 11:17 PM 04/02/2020 11:40 PM Care Teams Collection Manager Relationship Specialty Start Date End Date [place] Doss MD PCP - General Family Medicine 05/06/18 Leo Doss MD 01/15/18 Sravan Higgins MD Consulting Physician Vascular Surgery 04/21/20 [place] Ballard MD [address] [id number] Consulting Physician Cardiology 04/21/20
--- OUTSIDE RECORDS SUMMARY | 2025-06-02 13:08 | XMS_ITS | Encounter Summary ---
Author Organization [facility] Address [address] [place] [address] Care Team Providers Care Computing Systems Mechanic Name Role Phone Unavailable Primary Care Provider Unavailabl e Encounter Details Date Type Department Care Team (Late st Contact Info) Description 02/08/2018 Lab Requisition [facility] Care Pathology Lab [address] [place] [address] Neal Flores MD [address] [address] Social History Tobacco Use Types [...] CDT) Case Report Surgical Pathology Report Case: [id number] Authorizing Provider: [place] Flores MD Collected: 02/05/2018 [...] deeper H+E stained recut prepared at the [facility] Department of Pathology confirms these findings. Immunohistochemistry is performed at the [facility] Department of Pathology to further evaluate [...] inguinal mass specimen shows involvement by a NP63-sedrvhuh B-cell lymphoma that is most consistent with follicular lymphoma. Grading is not recommended to be performed on needle core biopsies, but rather, should be conducted on excisional biopsy samples. Correlation with clinical findings and relevant cytogenetic/molecular studies is required. XUAN/LORI 02/09/2018 5:04 PM [facility] PATHOLOGY LAB Clinical History 67 yo man with a 5.7 x 10 cm right inguinal mass. 02/09/2018 5:04 PM [facility] PATHOLOGY LAB Materials Received Received are 2 slides and 1 block labeled as Pascual Kowalski and A [id number] along with a copy of the outside pathology report. [place] [address]. All materials are returned to the referring institution, along with a copy of our final report. 02/09/2018 5:04 PM [facility] PATHOLOGY LAB Disclaimer The performance characteristics of all immunohistochemical and indirect immunofluorescence stains (if any) cited in this report were determined by the Histopathology Laboratory of [facility]. Some of these tests were developed [...] LAB Embedded Images 02/09/2018 5:04 PM T [facility] PATHOLOGY LAB Pathology/Cytolo gy LYMPH NODE SPECIMEN / Unknown 02/05/2018 10:04 AM CDT 02/08/2018 4:28 PM CDT [place] Flores MD LAB - PATHOLOGY/CYTOLOGY ORDER ZAIN Final Result [facility] PATHOLOGY LAB [address] [place], [place] [id number] [place] [address] documented in this encounter Visit Diagnoses Not on filedocumented in this encounter
--- OUTSIDE RECORDS SUMMARY | 2025-06-02 13:08 | XMS_ITS ---
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
--- OUTSIDE RECORDS SUMMARY | 2025-06-02 13:08 | XMS_ITS | Clinical Summary ---
Author Organization [facility] [employer] Address [address] [place] [address] Care Team Providers Care Data Specialist Name Role Phone Unavailable Primary Care Provider Unavailabl e Source Comments [facility] [employer],non-owned Affiliates and Associated Physician Practices is amultiple site organization consisting of ambulatory clinics and hospital sitesin [place], [place], [place] and [place]. This disclosure is being madepursuant to the Care Everywhere program and may not contain all information available regarding this patient. Last updated 18.[facility] [employer] Social History Tobacco Use Types Packs/Day Years [...] patient's age to complete this topic Insurance [facility] MANAGED MEDICARE ADV
[2025-06-02 18:18] LABS: Alanine Aminotransferase 31 U/L (6-50); Albumin Level 3.5 g/dL (3.5-5.1); Alkaline Phosphatase 72 U/L (38-126); Anion Gap 8 mmol/L (4-12); Aspartate Amino Transferase 38 U/L (17-59); Bilirubin,Total 0.5 mg/dL (0.2-1.3); Blood Urea Nitrogen 33 mg/dL (9-20); Calcium 8.8 mg/dL (8.4-10.2); Carbon Dioxide 33 mmol/L (22-30); Chloride 97 mmol/L (98-107); Cholesterol 131 mg/dL (0-200); Estimated Glomerular Filt Rate 32; Glucose 191 mg/dL (65-110); HDL Direct 43 mg/dL; Potassium 4.3 mmol/L (3.4-5.0); Sodium 138 mmol/L (137-145); Total Protein 6.7 g/dL (6.3-8.2); Triglycerides 127 mg/dL (<150)
[2025-06-02 18:47] LABS: Hemoglobin A1C 9.0 % (<5.7)
[2025-06-02 18:50] LABS: MALB Creatinine Ratio 47.5 mg/g (0-30)
== END 2025-06-02 13:05 | disposition home or self-care (01) ==
LOC: ANHGOSHLAB 13:05
PROVIDERS: PCP Family Medicine; Visit Provider Physician Assistant
DX: E11.22 Type 2 diabetes mellitus with diabetic chronic kidney disease (principal); N18.9 Chronic kidney disease, unspecified
CPT/HCPCS: 36415; 80053; 80061; 82043; 83036